=== PATIENT | female | born 1980 | race American Indian/Alaskan Native ===

== ENCOUNTER 2016-04-12 19:44 | Emergency (ER) | payer MEDICARE | END 2016-04-12 21:43 | disposition left against medical advice (07) | LOC: ED 19:44 | DX: R45.851 Suicidal ideations (principal); Z91.012 Allergy to eggs; Z88.1 Allergy status to other antibiotic agents; Z88.8 Allergy status to other drugs, medicaments and biological substances; Z53.21 Procedure and treatment not carried out due to patient leaving prior to being seen by health care provider ==

== ENCOUNTER 2016-04-22 09:51 | Emergency (ER) | payer MEDICARE ==
--- NOTE | 2016-04-22 10:15 | Emergency Department Report ---
Chief Complaint: Psych Stated Complaint: SUICIDAL IDEAS/DUE TO OPIATE WITHDRAWALS Time Seen by Provider: 04/22/16 10:10 - HPI History of Present Illness: Patient here reports suicide ideation without a plan . She reports having lupus and hydradenitis and have been oplace on oxycontin and percocet-10 twice daily. She reports that she ran out of meds and she is having withdrawal symptoms. Patient said she needs help. Denies homicidal ideation. complaing of hallucination and nightmares. generalized achy pain 10 - ROS Review of Systems: all systems are negative unless stated in HPI above - Exam Vital Signs: Vital Signs 04/22/16 09:55 Temperature 98.1 F Pulse Rate 49 L Respiratory 16 Rate Blood Pressure 134/55 O2 Sat by Pulse 100 Oximetry Physical Exam: General: This is a 61 yo female well nourished well developed and non toxic in appearance CV: S1S2. Bradycardia at 49. asymptomatib Lungs: CTAB. NL work of breathing Psych: positive suicide ideation. Positive hallucination. Calm MSE screening note: Focused history and physical exam performed. Due to findings the following was ordered:I spoke with Jose E Charge nurse and he said he is trying to secure a place for he. He was infromrd that patient having Suicidal thought and need to be placed under suicide watch immediately. ED Medical Decision Making - Medical Decision Making MDM:1: seen by provider in triage 2: Protocol implemented for labs and/or Diagnostics Patient to be seen by provider in main ED ED Disposition for MSE Condition: Stable
[2016-04-22 10:33] LABS: Urine Drugs of Abuse Note Disclamer
[2016-04-22 10:44] LABS: Bilirubin,Urine NEG (Negative); Blood,Urine NEG (Negative); Ketones,Urine NEG (Negative); Leukocyte Esterase,Urine TR (Negative); Mucus,Urine FEW /HPF; Nitrite,Urine NEG (Negative); Protein,Urine <15 mg/dL mg/dL (Negative); RBC,Urine < 1.0 /HPF (0.0-6.0); Urobilinogen,Urine < 2.0 mg/dL (<2.0)
[2016-04-22 11:48] LABS: Basophils % (Auto) 0.4 % (0.0-1.8); Eosinophils % (Auto) 0.5 % (0.0-4.3); Hemoglobin 12.4 gm/dl (10.1-14.3); Mean Corpuscular HGB Conc 32 % (30-34); Mean Corpuscular Volume 76 fl (79-97); Platelet Count 248 K/mm3 (140-440); Red Blood Count 5.11 M/mm3 (3.65-5.03); Red Cell Distribution Width 17.8 % (13.2-15.2); White Blood Count 14.2 K/mm3 (4.5-11.0)
[2016-04-22] MEDS ORDERED: ATIVAN IM ONE (11:53)
[2016-04-22] MEDS ORDERED: REGLAN IM ONE (11:53)
[2016-04-22 11:55] LABS: Mean Corpuscular Hemoglobin 24 pg (28-32)
--- NOTE | 2016-04-22 12:07 | Emergency Department Report ---
HPI - General Chief Complaint: Psych Time Seen by Provider: 04/22/16 10:22 - HPI HPI: Wallace [id number] The patient is a 28-year-old female presenting with a chief complaint suicidal ideation. The patient states she has a history of chronic opioid use. The patient states she normally takes 3 Percocets daily but ran out of them 2 days ago. The patient states this morning she began having suicidal ideation. Patient denies doing anything to try to harm herself states her plan was to cut her wrists. Patient admits to previous episode of suicidal ideation where she attempted to harm herself by taking pills (2013). Patient states she feels as though she is withdrawing from opiates as she is having abdominal cramping and nausea vomiting and "aching all over." Location: Mental state, see above Duration: see above Quality: Suicidal, aching Severity: Moderate Modifying factors: see above Context: see above Mode of transportation: not driving ED Past Medical Hx - Past Medical History Hx Diabetes: Yes Hx Psychiatric Treatment: Yes (BIPOLAR Boderline personality) Additional medical history: LUPUS, hidradenitis - Surgical History Additional Surgical History: Breast reduction bilateral,excisional surg. for abscess - Family History Family history: no significant - Social History Smoking Status: Current Every Day Smoker (1/2 pack per day) Substance Use Type: Marijuana, Prescribed - Medications Home Medications: Home Medications Medication Instructions Recorded Confirmed Last Taken Type ALBUTEROL Inhaler [ProAir HFA 2 puff IH QID PRN #1 inhalation 12/09/15 12/25/15 2 Days Ago Rx Inhaler] Insulin Aspart [NovoLOG Flexpen] 5 units SQ AC #1 pen 12/09/15 12/25/15 2 Days Ago Rx Cephalexin [Keflex] 500 mg PO TID #10 capsule 12/25/15 Unknown Rx Duloxetine HCl [Cymbalta] 90 mg PO QAM 12/25/15 12/25/15 12/23/15 History traZODone [Desyrel] 100 mg PO QHS 12/25/15 12/25/15 12/23/15 History ED Review of Systems ROS: Stated complaint: SUICIDAL IDEAS/DUE TO OPIATE WITHDRAWALS Other details as noted in HPI Comment: All other systems reviewed and negative Constitutional: denies: chills, fever Eyes: denies: eye pain, eye discharge, vision change ENT: denies: ear pain, throat pain Respiratory: denies: cough, shortness of breath, wheezing Cardiovascular: denies: chest pain, palpitations Endocrine: no symptoms reported Gastrointestinal: nausea, vomiting, other (abdominal cramping) Genitourinary: denies: urgency, dysuria, discharge Musculoskeletal: myalgia Skin: denies: rash, lesions Neurological: denies: headache, weakness, paresthesias Psychiatric: suicidal thoughts Hematological/Lymphatic: denies: easy bleeding, easy bruising Physical Exam - Physical Exam Vital Signs: Vital Signs 04/22/16 09:55 Temperature 98.1 F Pulse Rate 49 L Respiratory 16 Rate Blood Pressure 134/55 O2 Sat by Pulse 100 Oximetry Physical Exam: GENERAL: The patient is well-developed well-nourished female lying on stretcher playing with cell phone not appearing to be in acute distress. [] HEENT: Normocephalic. Atraumatic. Extraocular motions are intact. Patient has moist mucous membranes. NECK: Supple. Trachea midline CHEST/LUNGS: Clear to auscultation. There is no respiratory distress noted. HEART/CARDIOVASCULAR: Regular. There is no tachycardia. There is no gallop rub or murmur. ABDOMEN: Abdomen is soft, nontender. Patient has normal bowel sounds (not hyperactive). There is no abdominal distention. SKIN: There is no rash. There is no edema. There is no diaphoresis. NEURO: The patient is awake, alert, and oriented. The patient is cooperative. The patient has normal speech MUSCULOSKELETAL: There is no evidence of acute injury. ED Course Vital Signs 04/22/16 09:55 Temperature 98.1 F Pulse Rate 49 L Respiratory 16 Rate Blood Pressure 134/55 O2 Sat by Pulse 100 Oximetry ED Medical Decision Making - Lab Data Result diagrams: 04/22/16 11:27 04/22/16 11:27 Laboratory Tests 04/22/16 04/22/16 04/22/16 11:27 11:27 11:27 WBC RBC Hgb Hct MCV MCH MCHC RDW Plt Count Lymph % (Auto) [place] % (Auto) Eos % (Auto) Baso % (Auto) Lymph # [place] # Eos # Baso # Seg Neutrophils % Seg Neutrophils # Sodium 138 Potassium 4.6 Chloride 99.5 Carbon Dioxide 24 Anion Gap 19 BUN 10 Creatinine 0.7 Estimated GFR > 60 BUN/Creatinine Ratio 14.28 Glucose 219 H Calcium 9.1 HCG, Qual Negative Urine Color Urine Turbidity Urine pH Ur Specific [place] Urine Protein Urine Glucose (UA) Urine Ketones Urine Blood Urine Nitrite Urine Bilirubin Urine Urobilinogen Ur Leukocyte Esterase Urine WBC (Auto) Urine RBC (Auto) U Epithel Cells (Auto) Urine Mucus Salicylates Urine Opiates Screen Urine Methadone Screen Acetaminophen Ur Barbiturates Screen Ur Phencyclidine Scrn Ur Amphetamines Screen U Benzodiazepines Scrn Urine Cocaine Screen U Marijuana (THC) Screen Drugs of Abuse Note Plasma/Serum Alcohol < 0.01 04/22/16 04/22/16 04/22/16 11:27 11:27 11:27 WBC 14.2 H RBC 5.11 H Hgb 12.4 Hct 39.0 MCV 76 L MCH 24 L MCHC 32 RDW 17.8 H Plt Count 248 Lymph % (Auto) 19.5 [place] % (Auto) 4.1 Eos % (Auto) 0.5 Baso % (Auto) 0.4 Lymph # 2.8 [place] # 0.6 Eos # 0.1 Baso # 0.1 Seg Neutrophils % 75.5 H Seg Neutrophils # 10.7 H Sodium Potassium Chloride Carbon Dioxide Anion Gap BUN Creatinine Estimated GFR BUN/Creatinine Ratio Glucose Calcium HCG, Qual Urine Color Urine Turbidity Urine pH Ur Specific [place] Urine Protein Urine Glucose (UA) Urine Ketones Urine Blood Urine Nitrite Urine Bilirubin Urine Urobilinogen Ur Leukocyte Esterase Urine WBC (Auto) Urine RBC (Auto) U Epithel Cells (Auto) Urine Mucus Salicylates < 0.3 L Urine Opiates Screen Urine Methadone Screen Acetaminophen < 15.0 Ur Barbiturates Screen Ur Phencyclidine Scrn Ur Amphetamines Screen U Benzodiazepines Scrn Urine Cocaine Screen U Marijuana (THC) Screen Drugs of Abuse Note Plasma/Serum Alcohol 04/22/16 04/22/16 Unknown Unknown WBC RBC Hgb Hct MCV MCH MCHC RDW Plt Count Lymph % (Auto) [place] % (Auto) Eos % (Auto) Baso % (Auto) Lymph # [place] # Eos # Baso # Seg Neutrophils % Seg Neutrophils # Sodium Potassium Chloride Carbon Dioxide Anion Gap BUN Creatinine Estimated GFR BUN/Creatinine Ratio Glucose Calcium HCG, Qual Urine Color Yellow Urine Turbidity Clear Urine pH 6.0 Ur Specific [place] 1.016 Urine Protein <15 mg/dl Urine Glucose (UA) 150 Urine Ketones Neg Urine Blood Neg Urine Nitrite Neg Urine Bilirubin Neg Urine Urobilinogen < 2.0 Ur Leukocyte Esterase Tr Urine WBC (Auto) 1.0 Urine RBC (Auto) < 1.0 U Epithel Cells (Auto) 1.0 Urine Mucus Few Salicylates Urine Opiates Screen Presumptive negative Urine Methadone Screen Presumptive negative Acetaminophen Ur Barbiturates Screen Presumptive negative Ur Phencyclidine Scrn Presumptive negative Ur Amphetamines Screen Presumptive negative U Benzodiazepines Scrn Presumptive negative Urine Cocaine Screen Presumptive negative U Marijuana (THC) Screen Presumptive positive Drugs of Abuse Note Disclamer Plasma/Serum Alcohol - Differential Diagnosis opiate withdrawal, suicidal ideation Critical care attestation.: If time is entered above; I have spent that time in minutes in the direct care of this critically ill patient, excluding procedure time. ED Disposition Clinical Impression: Opiate dependence, Suicidal ideation Disposition: DC/TX PSY HOSP/PSY UNIT Is pt being admited?: No Does the pt Need Aspirin: No Condition: Serious Referrals: PRIMARY CARE, [Primary Care Provider] - 3-5 Days Time of Disposition: 12:08 (awaiting acceptance)
[2016-04-22 12:13] LABS: BUN/Creatinine Ratio 14.28; Blood Urea Nitrogen 10 mg/dL (7-17); Calcium 9.1 mg/dL (8.4-10.2); Carbon Dioxide 24 mmol/L (22-30); Chloride 99.5 mmol/L (98-107); Glucose 219 mg/dL (65-100); Potassium 4.6 mmol/L (3.6-5.0); Sodium 138 mmol/L (137-145)
[2016-04-22 12:29] LABS: Anion Gap 19 mmol/L
[2016-04-22] MEDS ORDERED: ATIVAN PO PRN (15:52)
[2016-04-22] MEDS ORDERED: REGLAN IM PRN (15:52)
[2016-04-22 18:34] VITALS: BP 132/82
== END 2016-04-22 18:36 ==
LOC: ED 09:51 → EEVIPCON 09:51 → ED 18:36
DX: F11.20 Opioid dependence, uncomplicated (principal); R45.851 Suicidal ideations; R11.2 Nausea with vomiting, unspecified; M79.1 Myalgia; E11.9 Type 2 diabetes mellitus without complications; F31.9 Bipolar disorder, unspecified; L73.2 Hidradenitis suppurativa; F12.10 Cannabis abuse, uncomplicated; F17.200 Nicotine dependence, unspecified, uncomplicated; Z79.4 Long term (current) use of insulin
CPT/HCPCS: 36415; 80048; 80307; 81001; 82962; 84703; 85025; 96372; 99285; G0480; J2060; J2765; 80320; J1815

== ENCOUNTER 2016-05-31 00:22 | Emergency (ER) | payer MEDICARE ==
[2016-05-31 05:01] LABS: Urine Drugs of Abuse Note Disclamer
[2016-05-31 05:21] LABS: Basophils % (Auto) 0.4 % (0.0-1.8); Eosinophils % (Auto) 1.7 % (0.0-4.3); Hematocrit 39.2 % (30.3-42.9); Hemoglobin 12.3 gm/dl (10.1-14.3); Mean Corpuscular HGB Conc 31 % (30-34); Mean Corpuscular Volume 77 fl (79-97); Platelet Count 278 K/mm3 (140-440); Red Blood Count 5.09 M/mm3 (3.65-5.03); Red Cell Distribution Width 17.9 % (13.2-15.2); White Blood Count 12.2 K/mm3 (4.5-11.0)
[2016-05-31 05:21] LABS: Bilirubin,Urine NEG (Negative); Blood,Urine MOD (Negative); Ketones,Urine NEG (Negative); Leukocyte Esterase,Urine NEG (Negative); Mucus,Urine 1+ /HPF; Nitrite,Urine NEG (Negative); Protein,Urine <15 mg/dL mg/dL (Negative); Urobilinogen,Urine < 2.0 mg/dL (<2.0)
[2016-05-31 05:24] LABS: Mean Corpuscular Hemoglobin 24 pg (28-32)
[2016-05-31 05:38] LABS: Anion Gap 20 mmol/L; BUN/Creatinine Ratio 11.25; Blood Urea Nitrogen 9 mg/dL (7-17); Calcium 8.4 mg/dL (8.4-10.2); Carbon Dioxide 26 mmol/L (22-30); Chloride 99.7 mmol/L (98-107); Glucose 97 mg/dL (65-100); Potassium 4.2 mmol/L (3.6-5.0); Sodium 141 mmol/L (137-145)
[2016-05-31] MEDS ORDERED: ATIVAN IM PRN (07:29)
[2016-05-31] MEDS ORDERED: HALDOL IM PRN (07:29)
--- NOTE | 2016-05-31 07:30 | Emergency Department Report ---
ED Psych HPI - General Chief Complaint: Psych Stated Complaint: MH EVAL/SUICIDAL THOUGHTS Time Seen by Provider: 05/31/16 07:18 Source: patient, EMS (ems notes not available at time of chart dictation), RN notes reviewed Mode of arrival: Ambulatory - History of Present Illness Initial Comments: Past medical history: Diabetes, lupus, bipolar, chronic hidradenitis This is a 36-year-old female. She presents to the ER with suicidal ideation and auditory hallucinations. Symptoms are constant for the past few days. They have no exacerbating or relieving factors. Patient reports compliance with her outpatient medications, which include lithium, Cymbalta, Geodon, and trazodone. The patient denies headache, neck pain, chest pain, abdominal pain or shortness of breath. She denies nausea vomiting diarrhea. She denies irritative and obstructive urinary symptoms. She does not have access to guns or firearms. She denies overdose intentions. She admits to chronic labial discomfort, consistent with prior episodes of her known chronic hidradenitis. MD Complaint: suicidal ideation, feels depressed -: Gradual Associated Psychiatric Symptoms: auditory hallucinations History of same: Yes Quality: constant Improves With: none Worsens With: none If Self Harm: admits thoughts of - Related Data Home Medications Medication Instructions Recorded Confirmed Last Taken Duloxetine HCl [Cymbalta] 90 mg PO QDAY 05/31/16 05/31/16 Unknown [place] Carbonate ER [Lithobid ER] 300 mg PO QDAY 05/31/16 05/31/16 Unknown Ziprasidone HCl [Geodon] 80 mg PO BID 05/31/16 05/31/16 Unknown traZODone [Desyrel] 100 mg PO QHS 05/31/16 05/31/16 Unknown Allergies Allergy/AdvReac Type Severity Reaction Status Date / Time egg Allergy Hives Verified 04/22/16 09:55 tramadol HCl [From Ultram] Allergy Hives Verified 04/22/16 09:55 vancomycin Allergy Hives Verified 04/22/16 09:55 ED Review of Systems ROS: Stated complaint: MH EVAL/SUICIDAL THOUGHTS Other details as noted in HPI Constitutional: denies: fever Eyes: denies: vision change ENT: denies: epistaxis Respiratory: denies: cough Cardiovascular: denies: chest pain Gastrointestinal: denies: abdominal pain Genitourinary: as per HPI Musculoskeletal: myalgia Skin: lesions Psychiatric: anxiety, suicidal thoughts ED Past Medical Hx - Past Medical History Previous Medical History?: Yes Hx Diabetes: Yes Hx Psychiatric Treatment: Yes (BIPOLAR Boderline personality) Additional medical history: LUPUS, hidradenitis - Surgical History Past Surgical History?: Yes Additional Surgical History: Breast reduction bilateral,excisional surg. for abscess - Social History Smoking Status: Current Every Day Smoker Substance Use Type: Marijuana - Medications Home Medications: Home Medications Medication Instructions Recorded Confirmed Last Taken Type Duloxetine HCl [Cymbalta] 90 mg PO QDAY 05/31/16 05/31/16 Unknown History [place] Carbonate ER [Lithobid ER] 300 mg PO QDAY 05/31/16 05/31/16 Unknown History Ziprasidone HCl [Geodon] 80 mg PO BID 05/31/16 05/31/16 Unknown History traZODone [Desyrel] 100 mg PO QHS 05/31/16 05/31/16 Unknown History ED Physical Exam - General Limitations: No Limitations General appearance: alert, in no apparent distress - Head Head exam: Present: atraumatic, normocephalic - Eye Eye exam: Present: normal appearance, PERRL, EOMI. Absent: nystagmus - ENT ENT exam: Present: normal exam, normal orophraynx, mucous membranes moist, normal external ear exam - Neck Neck exam: Present: normal inspection, full ROM. Absent: tenderness, meningismus - Respiratory Respiratory exam: Present: normal lung sounds bilaterally. Absent: respiratory distress, wheezes, rales, rhonchi, stridor, decreased breath sounds - Cardiovascular Cardiovascular Exam: Present: regular rate, normal rhythm, normal heart sounds. Absent: bradycardia, tachycardia, irregular rhythm, systolic murmur, diastolic murmur, rubs, gallop - GI/Abdominal GI/Abdominal exam: Present: soft, normal bowel sounds. Absent: distended, tenderness, guarding, rebound, rigid - External exam: Present: lesions, other (chronic lesions externally noted, consistent with known history of hidradenitis. Minimal left superior labial induration, however no erythema, pus or streaking. There is no fluctuance.) Bi-manual exam: Present: other (external gynecologic examination, I am escorted by nurse EVELYN ALBERTS) - Extremities Exam Extremities exam: Present: normal inspection, full ROM, normal capillary refill. Absent: tenderness, pedal edema, joint swelling, calf tenderness - Back Exam Back exam: Present: normal inspection, full ROM. Absent: tenderness, CVA tenderness (R), CVA tenderness (L), muscle spasm, paraspinal tenderness, vertebral tenderness - Neurological Exam Neurological exam: Present: alert, oriented X3, normal gait, other (Extraocular movements intact. Tongue midline. No facial droop. Facial sensation intact to light touch in the V1, V2, V3 distribution bilaterally. 5 and 5 strength in 4 extremities.. Sensation is intact to light touch in 4 extremities.). Absent : motor sensory deficit - Psychiatric Psychiatric exam: Present: anxious, suicidal ideation. Absent: homicidal ideation - Skin Skin exam: Present: warm ED Course Vital Signs 05/31/16 05/31/16 05/31/16 02:41 08:47 08:48 Temperature 98.3 F 98.0 F Pulse Rate 82 80 Respiratory 18 16 16 Rate Blood Pressure 116/80 118/63 [Left] O2 Sat by Pulse 97 97 97 Oximetry - Reevaluation(s) Reevaluation #1: 05/31/16 08:49 Differential diagnosis: Suicidality, mood disorder, chronic hidradenitis, medical clearance for psychiatric placement Assessment and plan: 36-year-old female with suicidality, very anxious, depressed, tearful. Has a GCS of 15, with an NIH score of 0. Laboratory studies were reviewed and are unremarkable. The patient required 1013 in initiation. Laboratory studies are reviewed, they are within normal limits. Her external physical exam is consistent with chronic hidradenitis. Does not require antibiotic therapy at this time. Warm compresses are appropriate on an as-needed basis. We will continue the current outpatient medications as listed. At this point in time, I see no immediate medical contraindication to psychiatric admission/evaluation/placement. The crisis team is informed. ED Medical Decision Making - Lab Data Result diagrams: 05/31/16 04:40 05/31/16 04:40 Vital Signs 05/31/16 05/31/16 05/31/16 02:41 08:47 08:48 Temperature 98.3 F 98.0 F Pulse Rate 82 80 Respiratory 18 16 16 Rate Blood Pressure 116/80 118/63 [Left] O2 Sat by Pulse 97 97 97 Oximetry Lab Results 05/31/16 05/31/16 05/31/16 Range/Units 04:40 04:40 04:40 WBC 12.2 H (4.5-11.0) K/mm3 RBC 5.09 H (3.65-5.03) M/mm3 Hgb 12.3 (10.1-14.3) gm/dl Hct 39.2 (30.3-42.9) % MCV 77 L (79-97) fl MCH 24 L (28-32) pg MCHC 31 (30-34) % RDW 17.9 H (13.2-15.2) % Plt Count 278 (140-440) K/mm3 Lymph % (Auto) 26.3 (13.4-35.0) % Elk % (Auto) 6.1 (0.0-7.3) % Eos % (Auto) 1.7 (0.0-4.3) % Baso % (Auto) 0.4 (0.0-1.8) % Lymph # 3.2 (1.2-5.4) K/mm3 Elk # 0.7 (0.0-0.8) K/mm3 Eos # 0.2 (0.0-0.4) K/mm3 Baso # 0.0 (0.0-0.1) K/mm3 Seg Neutrophils % 65.5 (40.0-70.0) % Seg Neutrophils # 8.0 H (1.8-7.7) K/mm3 Sodium 141 (137-145) mmol/L Potassium 4.2 (3.6-5.0) mmol/L Chloride 99.7 (98-107) mmol/L Carbon Dioxide 26 (22-30) mmol/L Anion Gap 20 mmol/L BUN 9 (7-17) mg/dL Creatinine 0.8 (0.7-1.2) mg/dL Estimated GFR > 60 ml/min BUN/Creatinine Ratio 11.25 % Glucose 97 (65-100) mg/dL Calcium 8.4 (8.4-10.2) mg/dL Total Creatine Kinase (30-135) units/L Urine Color (Yellow) Urine Turbidity (Clear) Urine pH (5.0-7.0) Ur Specific [place] (1.003-1.030) Urine Protein (Negative) mg/dL Urine Glucose (UA) (Negative) mg/dL Urine Ketones (Negative) mg/dL Urine Blood (Negative) Urine Nitrite (Negative) Urine Bilirubin (Negative) Urine Urobilinogen (<2.0) mg/dL Ur Leukocyte Esterase (Negative) Urine WBC (Auto) (0.0-6.0) /HPF Urine RBC (Auto) (0.0-6.0) /HPF U Epithel Cells (Auto) (0-13.0) /HPF Urine Mucus /HPF Urine HCG, Qual (Negative) Salicylates (2.8-20.0) mg/dL Urine Opiates Screen Urine Methadone Screen Acetaminophen (10.0-30.0) ug/mL Ur Barbiturates Screen Ur Phencyclidine Scrn Ur Amphetamines Screen U Benzodiazepines Scrn [place] (0.0-1.2) mmol/L Urine Cocaine Screen U Marijuana (THC) Screen Drugs of Abuse Note Plasma/Serum Alcohol < 0.01 (0-0.07) gm% 05/31/16 05/31/16 05/31/16 Range/Units 04:46 04:46 04:46 WBC (4.5-11.0) K/mm3 RBC (3.65-5.03) M/mm3 Hgb (10.1-14.3) gm/dl Hct (30.3-42.9) % MCV (79-97) fl MCH (28-32) pg MCHC (30-34) % RDW (13.2-15.2) % Plt Count (140-440) K/mm3 Lymph % (Auto) (13.4-35.0) % Elk % (Auto) (0.0-7.3) % Eos % (Auto) (0.0-4.3) % Baso % (Auto) (0.0-1.8) % Lymph # (1.2-5.4) K/mm3 Elk # (0.0-0.8) K/mm3 Eos # (0.0-0.4) K/mm3 Baso # (0.0-0.1) K/mm3 Seg Neutrophils % (40.0-70.0) % Seg Neutrophils # (1.8-7.7) K/mm3 Sodium (137-145) mmol/L Potassium (3.6-5.0) mmol/L Chloride (98-107) mmol/L Carbon Dioxide (22-30) mmol/L Anion Gap mmol/L BUN (7-17) mg/dL Creatinine (0.7-1.2) mg/dL Estimated GFR ml/min BUN/Creatinine Ratio % Glucose (65-100) mg/dL Calcium (8.4-10.2) mg/dL Total Creatine Kinase (30-135) units/L Urine Color Yellow (Yellow) Urine Turbidity Clear (Clear) Urine pH 5.0 (5.0-7.0) Ur Specific [place] 1.021 (1.003-1.030) Urine Protein <15 mg/dl (Negative) mg/dL Urine Glucose (UA) Neg (Negative) mg/dL Urine Ketones Neg (Negative) mg/dL Urine Blood Mod (Negative) Urine Nitrite Neg (Negative) Urine Bilirubin Neg (Negative) Urine Urobilinogen < 2.0 (<2.0) mg/dL Ur Leukocyte Esterase Neg (Negative) Urine WBC (Auto) 1.0 (0.0-6.0) /HPF Urine RBC (Auto) 2.0 (0.0-6.0) /HPF U Epithel Cells (Auto) 2.0 (0-13.0) /HPF Urine Mucus 1+ /HPF Urine HCG, Qual Negative (Negative) Salicylates (2.8-20.0) mg/dL Urine Opiates Screen Presumptive negative Urine Methadone Screen Presumptive negative Acetaminophen (10.0-30.0) ug/mL Ur Barbiturates Screen Presumptive negative Ur Phencyclidine Scrn Presumptive negative Ur Amphetamines Screen Presumptive positive U Benzodiazepines Scrn Presumptive negative [place] (0.0-1.2) mmol/L Urine Cocaine Screen Presumptive negative U Marijuana (THC) Screen Presumptive positive Drugs of Abuse Note Disclamer Plasma/Serum Alcohol (0-0.07) gm% 05/31/16 05/31/16 05/31/16 Range/Units 07:15 07:15 07:15 WBC (4.5-11.0) K/mm3 RBC (3.65-5.03) M/mm3 Hgb (10.1-14.3) gm/dl Hct (30.3-42.9) % MCV (79-97) fl MCH (28-32) pg MCHC (30-34) % RDW (13.2-15.2) % Plt Count (140-440) K/mm3 Lymph % (Auto) (13.4-35.0) % Elk % (Auto) (0.0-7.3) % Eos % (Auto) (0.0-4.3) % Baso % (Auto) (0.0-1.8) % Lymph # (1.2-5.4) K/mm3 [place] # (0.0-0.8) K/mm3 Eos # (0.0-0.4) K/mm3 Baso # (0.0-0.1) K/mm3 Seg Neutrophils % (40.0-70.0) % Seg Neutrophils # (1.8-7.7) K/mm3 Sodium (137-145) mmol/L Potassium (3.6-5.0) mmol/L Chloride (98-107) mmol/L Carbon Dioxide (22-30) mmol/L Anion Gap mmol/L BUN (7-17) mg/dL Creatinine (0.7-1.2) mg/dL Estimated GFR ml/min BUN/Creatinine Ratio % Glucose (65-100) mg/dL Calcium (8.4-10.2) mg/dL Total Creatine Kinase 92 (30-135) units/L Urine Color (Yellow) Urine Turbidity (Clear) Urine pH (5.0-7.0) Ur Specific [place] (1.003-1.030) Urine Protein (Negative) mg/dL Urine Glucose (UA) (Negative) mg/dL Urine Ketones (Negative) mg/dL Urine Blood (Negative) Urine Nitrite (Negative) Urine Bilirubin (Negative) Urine Urobilinogen (<2.0) mg/dL Ur Leukocyte Esterase (Negative) Urine WBC (Auto) (0.0-6.0) /HPF Urine RBC (Auto) (0.0-6.0) /HPF U Epithel Cells (Auto) (0-13.0) /HPF Urine Mucus /HPF Urine HCG, Qual (Negative) Salicylates < 0.3 L (2.8-20.0) mg/dL Urine Opiates Screen Urine Methadone Screen Acetaminophen < 15.0 (10.0-30.0) ug/mL Ur Barbiturates Screen Ur Phencyclidine Scrn Ur Amphetamines Screen U Benzodiazepines Scrn [place] 0.3 (0.0-1.2) mmol/L Urine Cocaine Screen U Marijuana (THC) Screen Drugs of Abuse Note Plasma/Serum Alcohol (0-0.07) gm% Critical care attestation.: If time is entered above; I have spent that time in minutes in the direct care of this critically ill patient, excluding procedure time. ED Disposition Clinical Impression: Suicidal ideation Disposition: DC/TX PSY HOSP/PSY UNIT Is pt being admited?: No Does the pt Need Aspirin: No Condition: Good Referrals: PRIMARY CARE, [Primary Care Provider] - 3-5 Days
[2016-05-31 07:59] LABS: Lithium 0.3 mmol/L (0.0-1.2)
[2016-05-31 08:00] LABS: Salicylate < 0.3 mg/dL (2.8-20.0)
[2016-05-31 08:48] VITALS: BP 118/63
[2016-05-31] MEDS ORDERED: CYMBALTA PO SCH (10:00)
[2016-05-31] MEDS ORDERED: LITHOBID ER PO SCH (10:00)
[2016-05-31] MEDS: GEODON PO SCH ×2 (11:57→11:58)
[2016-05-31] MEDS ORDERED: HABITROL TD ONE (15:44)
[2016-05-31] MEDS ORDERED: DESYREL PO SCH (22:00)
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
== END 2016-05-31 16:24 ==
LOC: ED 00:22 → EEVIPCON 00:22 → ED 16:24
DX: F31.9 Bipolar disorder, unspecified (principal); E11.9 Type 2 diabetes mellitus without complications; M32.9 Systemic lupus erythematosus, unspecified; F17.200 Nicotine dependence, unspecified, uncomplicated; F12.10 Cannabis abuse, uncomplicated; F41.9 Anxiety disorder, unspecified; Z98.890 Other specified postprocedural states; Z91.012 Allergy to eggs; Z88.6 Allergy status to analgesic agent; Z88.1 Allergy status to other antibiotic agents; Z79.899 Other long term (current) drug therapy
CPT/HCPCS: 36415; 80048; 80178; 80307; 81001; 81025; 82550; 85025; 99285; G0480; 80320

== ENCOUNTER 2016-07-01 23:18 | Emergency (ER) | payer MEDICARE ==
[2016-07-02 00:36] LABS: Basophils % (Auto) 1.2 % (0.0-1.8); Eosinophils % (Auto) 0.9 % (0.0-4.3); Hematocrit 37.3 % (30.3-42.9); Hemoglobin 12.2 gm/dl (10.1-14.3); Mean Corpuscular HGB Conc 33 % (30-34); Mean Corpuscular Volume 76 fl (79-97); Platelet Count 267 K/mm3 (140-440); Red Blood Count 4.91 M/mm3 (3.65-5.03); Red Cell Distribution Width 17.3 % (13.2-15.2); White Blood Count 12.8 K/mm3 (4.5-11.0)
[2016-07-02 00:47] LABS: Urine Drugs of Abuse Note Disclamer
[2016-07-02 00:56] LABS: Anion Gap 20 mmol/L; Blood Urea Nitrogen 9 mg/dL (7-17); Calcium 8.9 mg/dL (8.4-10.2); Carbon Dioxide 20 mmol/L (22-30); Chloride 102.3 mmol/L (98-107); Glucose 128 mg/dL (65-100); Sodium 138 mmol/L (137-145)
[2016-07-02 01:08] LABS: Bilirubin,Urine NEG (Negative); Blood,Urine NEG (Negative); Ketones,Urine NEG (Negative); Leukocyte Esterase,Urine NEG (Negative); Mucus,Urine FEW /HPF; Nitrite,Urine NEG (Negative); Protein,Urine <15 mg/dL mg/dL (Negative); Urobilinogen,Urine < 2.0 mg/dL (<2.0)
[2016-07-02 01:18] LABS: Mean Corpuscular Hemoglobin 25 pg (28-32)
--- NOTE | 2016-07-02 05:49 | Emergency Department Report ---
ED Psych HPI - General Chief Complaint: Psych Stated Complaint: SUICIDAL Time Seen by Provider: 07/02/16 03:32 Source: patient Mode of arrival: Ambulatory Limitations: No Limitations - History of Present Illness Initial Comments: 36-year-old female the past medical history diabetes, bipolar, lupus, and hydradenitis presents to Hospital complaints of suicidal ideation 2 days. No plan. Patient states she has been suicidal since her godmother . Patient complains of auditory hallucinations. She has been compliant with her Cymbalta , Geodon, and trazodone. She no longer takes lithium. No physical complaints reported. No history of previous suicide attempts in the past. - Related Data Home Medications Medication Instructions Recorded Confirmed Last Taken Duloxetine HCl [Cymbalta] 90 mg PO QDAY 05/31/16 07/02/16 Unknown Ziprasidone HCl [Geodon] 80 mg PO BID 05/31/16 07/02/16 Unknown traZODone [Desyrel] 100 mg PO QHS 05/31/16 07/02/16 Unknown Allergies Allergy/AdvReac Type Severity Reaction Status Date / Time egg Allergy Hives Verified 07/02/16 02:56 tramadol HCl [From Ultram] Allergy Hives Verified 07/02/16 02:56 vancomycin Allergy Hives Verified 07/02/16 02:56 ED Review of Systems ROS: Stated complaint: SUICIDAL Other details as noted in HPI Comment: All other systems reviewed and negative Other: Constitutional: No fevers chills Eyes: No eye pain visual changes ENT: No ear pain or throat pain Neck: Denies pain Respiratory: Denies cough wheezing shortness of breath Cardiovascular: Denies chest pain, palpitations, syncope GI: Denies abdominal pain, nausea, vomiting, diarrhea : Denies dysuria Musculoskeletal: Denies back pain Skin: Denies rash, lesions, erythema Neurologic: Denies headache, numbness, weakness Psychiatric: As per HPI ED Past Medical Hx - Past Medical History Previous Medical History?: Yes Hx Diabetes: Yes Hx Psychiatric Treatment: Yes (BIPOLAR Boderline personality) Additional medical history: LUPUS, hidradenitis - Surgical History Past Surgical History?: Yes Additional Surgical History: Breast reduction bilateral,excisional surg. for abscess - Social History Smoking Status: Current Every Day Smoker Substance Use Type: None - Medications Home Medications: Home Medications Medication Instructions Recorded Confirmed Last Taken Type Duloxetine HCl [Cymbalta] 90 mg PO QDAY 05/31/16 07/02/16 Unknown History Ziprasidone HCl [Geodon] 80 mg PO BID 05/31/16 07/02/16 Unknown History traZODone [Desyrel] 100 mg PO QHS 05/31/16 07/02/16 Unknown History ED Physical Exam - General Limitations: No Limitations - Other Other exam information: General: No limitations, patient is alert in no acute distress Head exam: Atraumatic, normocephalic Eyes exam: Normal appearance ENT: Moist mucous membrane, normal oropharynx Neck exam: Normal inspection, full range of motion Respiratory exam: Clear to auscultation bilateral, no wheezes, rales, crackles Cardiovascular: Normal rate and rhythm, normal heart sounds Abdomen: Soft, nondistended, and nontender, with normal bowel sounds, no rebound, or guarding Extremity: Full range of motion normal inspection no deformity Back: Normal Inspection, full range of motion, no tenderness Neurologic: Alert, oriented x3, cranial nerves intact, no motor or sensory deficit Psychiatric: normal affect, normal mood Skin: Warm, dry, intact ED Course Vital Signs 07/01/16 07/02/16 23:52 01:51 Temperature 98.8 F 99.1 F Pulse Rate 70 81 Respiratory 18 16 Rate Blood Pressure 156/82 146/91 [Right] O2 Sat by Pulse 100 100 Oximetry - Reevaluation(s) Reevaluation #1: 07/02/16 05:46 PT remained stable and cooperative in the ED - Consultations Consultation #1: 07/02/16 05:50 mental health evaluation ED Medical Decision Making - Lab Data Result diagrams: 07/02/16 00:15 07/02/16 00:14 Lab Results 07/02/16 07/02/16 07/02/16 Range/Units 00:14 00:14 00:15 WBC (4.5-11.0) K/mm3 RBC (3.65-5.03) M/mm3 Hgb (10.1-14.3) gm/dl Hct (30.3-42.9) % MCV (79-97) fl MCH (28-32) pg MCHC (30-34) % RDW (13.2-15.2) % Plt Count (140-440) K/mm3 Lymph % (Auto) (13.4-35.0) % [place] % (Auto) (0.0-7.3) % Eos % (Auto) (0.0-4.3) % Baso % (Auto) (0.0-1.8) % Lymph # (1.2-5.4) K/mm3 [place] # (0.0-0.8) K/mm3 Eos # (0.0-0.4) K/mm3 Baso # (0.0-0.1) K/mm3 Seg Neutrophils % (40.0-70.0) % Seg Neutrophils # (1.8-7.7) K/mm3 Sodium 138 (137-145) mmol/L Potassium 4.0 (3.6-5.0) mmol/L Chloride 102.3 (98-107) mmol/L Carbon Dioxide 20 L (22-30) mmol/L Anion Gap 20 mmol/L BUN 9 (7-17) mg/dL Creatinine 0.6 L (0.7-1.2) mg/dL Estimated GFR > 60 ml/min BUN/Creatinine Ratio 15.00 % Glucose 128 H (65-100) mg/dL Calcium 8.9 (8.4-10.2) mg/dL HCG, Qual Negative (Negative) Urine Color (Yellow) Urine Turbidity (Clear) Urine pH (5.0-7.0) Ur Specific [place] (1.003-1.030) Urine Protein (Negative) mg/dL Urine Glucose (UA) (Negative) mg/dL Urine Ketones (Negative) mg/dL Urine Blood (Negative) Urine Nitrite (Negative) Urine Bilirubin (Negative) Urine Urobilinogen (<2.0) mg/dL Ur Leukocyte Esterase (Negative) Urine WBC (Auto) (0.0-6.0) /HPF Urine RBC (Auto) (0.0-6.0) /HPF U Epithel Cells (Auto) (0-13.0) /HPF Urine Mucus /HPF Urine Opiates Screen Urine Methadone Screen Ur Barbiturates Screen Ur Phencyclidine Scrn Ur Amphetamines Screen U Benzodiazepines Scrn Urine Cocaine Screen U Marijuana (THC) Screen Drugs of Abuse Note Plasma/Serum Alcohol < 0.01 (0-0.07) gm% 07/02/16 07/02/16 07/02/16 Range/Units 00:15 00:24 00:24 WBC 12.8 H (4.5-11.0) K/mm3 RBC 4.91 (3.65-5.03) M/mm3 Hgb 12.2 (10.1-14.3) gm/dl Hct 37.3 (30.3-42.9) % MCV 76 L (79-97) fl MCH 25 L (28-32) pg MCHC 33 (30-34) % RDW 17.3 H (13.2-15.2) % Plt Count 267 (140-440) K/mm3 Lymph % (Auto) 32.2 (13.4-35.0) % [place] % (Auto) 6.0 (0.0-7.3) % Eos % (Auto) 0.9 (0.0-4.3) % Baso % (Auto) 1.2 (0.0-1.8) % Lymph # 4.1 (1.2-5.4) K/mm3 [place] # 0.8 (0.0-0.8) K/mm3 Eos # 0.1 (0.0-0.4) K/mm3 Baso # 0.1 (0.0-0.1) K/mm3 Seg Neutrophils % 59.7 (40.0-70.0) % Seg Neutrophils # 7.6 (1.8-7.7) K/mm3 Sodium (137-145) mmol/L Potassium (3.6-5.0) mmol/L Chloride (98-107) mmol/L Carbon Dioxide (22-30) mmol/L Anion Gap mmol/L BUN (7-17) mg/dL Creatinine (0.7-1.2) mg/dL Estimated GFR ml/min BUN/Creatinine Ratio % Glucose (65-100) mg/dL Calcium (8.4-10.2) mg/dL HCG, Qual (Negative) Urine Color Yellow (Yellow) Urine Turbidity Clear (Clear) Urine pH 7.0 (5.0-7.0) Ur Specific [place] 1.014 (1.003-1.030) Urine Protein <15 mg/dl (Negative) mg/dL Urine Glucose (UA) Neg (Negative) mg/dL Urine Ketones Neg (Negative) mg/dL Urine Blood Neg (Negative) Urine Nitrite Neg (Negative) Urine Bilirubin Neg (Negative) Urine Urobilinogen < 2.0 (<2.0) mg/dL Ur Leukocyte Esterase Neg (Negative) Urine WBC (Auto) 1.0 (0.0-6.0) /HPF Urine RBC (Auto) 1.0 (0.0-6.0) /HPF U Epithel Cells (Auto) 3.0 (0-13.0) /HPF Urine Mucus Few /HPF Urine Opiates Screen Presumptive negative Urine Methadone Screen Presumptive negative Ur Barbiturates Screen Presumptive negative Ur Phencyclidine Scrn Presumptive negative Ur Amphetamines Screen Presumptive negative U Benzodiazepines Scrn Presumptive negative Urine Cocaine Screen Presumptive negative U Marijuana (THC) Screen Presumptive negative Drugs of Abuse Note Disclamer Plasma/Serum Alcohol (0-0.07) gm% - Medical Decision Making 1013 and transfer forms signed. Patient requires inpatient treatment for suicidal ideation. She is medically cleared. Her current medication will be continued - Differential Diagnosis depression, psychosis, suicidal ideation Critical Care Time: No Critical care attestation.: If time is entered above; I have spent that time in minutes in the direct care of this critically ill patient, excluding procedure time. ED Disposition Clinical Impression: Suicidal ideation, Diabetes 1.5, managed as type 2, Bipolar disorder, Medical clearance for psychiatric admission Disposition: DC/TX PSY HOSP/PSY UNIT Is pt being admited?: No Does the pt Need Aspirin: No Condition: Stable Time of Disposition: 05:49 (awaiting acceptance)
[2016-07-02] MEDS ORDERED: MILK OF MAGNESIA PO PRN (06:05)
[2016-07-02] MEDS ORDERED: ALUM-MAG HYDROX-SIMETH 200-200-20MG/5ML PO PRN (06:05)
[2016-07-02] MEDS ORDERED: TYLENOL PO PRN (06:05)
[2016-07-02] MEDS ORDERED: GEODON PO SCH (10:00)
[2016-07-02] MEDS ORDERED: NON-FORMULARY (Ziprasidone Hcl [Geodon] 80 MG) PO SCH (10:00)
[2016-07-02] MEDS ORDERED: CYMBALTA PO SCH (10:00)
[2016-07-02] MEDS ORDERED: HABITROL TD ONE (15:37)
[2016-07-02 17:17] VITALS: BP 116/76
--- NOTE | 2016-07-02 17:20 | Consultation ---
History of Present Illness - Reason for Consult Consult date: 07/02/16 Reason for consult: Suicidal Ideation - History of Present Psychiatric Illness CHIEF COMPLAINT IN PATIENTS WORDS: " ran out of suboxone" HISTORY OF PRESENT ILLNESS REQUIRING ADMISSION TO INPATIENT LEVEL OF CARE: (Describe the onset of Illness, Intensity of Symptoms, and Circumstances Leading to Admission) This is a 36-year-old female with a past medical history of diabetes, SLE and hydradenitis and a past psychiatric history of bipolar disorder and opiate dependence who now presents with complaints of suicidal thoughts. Patient was evaluated by the ER physician and medically cleared prior to my assessment. Per review of medical record patient notes that her godmother recently and the patient has been expressing suicidal thoughts without plan for the past 48 hours. Patient is a recent resident of the partial hospitalization program at [facility]. Patient notes that she was hospitalized at [facility] in the care of Dr. mock any who had prescribed her Suboxone. On discharge, patient was transferred to the [place] to continue her treatment, where she obtained the Suboxone prescription for several weeks and appropriately ran out about a week ago. Her last use was 1 week ago and she has undergone the acute withdrawal syndrome from the discontinuation of Suboxone. Currently patient notes that her psychiatrist in the partial program, Dr. Cui, is unable to provide this medication due to lack of a license. Patient notes that she simply return to the ER and would like to go back to [facility] so that she can reinitiate therapy with Suboxone. She has a chronic pain syndrome related to her SLE and is likely experiencing pain in the context of the withdrawal syndrome. PSYCHIATRIC REVIEW OF SYSTEMS: Depression: Depressed mood, suicidal thoughts [place]: None noted Psychosis: No current AVH. No grandiosity and no paranoia Anxiety/ OCD/ PTSD: Patient is having somatic symptoms as well as frequent worrying Suicidality: No suicidal plan noted Other Self-Injurious Behavior: No self-injurious behaviors noted Violent/ Aggressive Behavior: None noted CURRENT MEDICATIONS: ( Psychiatric and Non-psychiatric ) Cymbalta 90 mg daily Lantus 25 units subcutaneous daily at bedtime Geodon 80 mg twice a day Trazodone 100 mg at bedtime Humulin 10 units subcutaneous before meals ALLERGIES: NKDA PAST PSYCHIATRIC HISTORY: ( Prior Treatment, Precipitating Factors, Diagnosis, and Course of Treatment ) Previous inpatient hospitalization at [place] PAST PSYCHIATRIC MEDICATION TRIALS: Did not obtain MEDICAL HISTORY: (Chronic and Acute Illnesses, Current Medical Treatment, Recent Hospitalizations) SLE Diabetes Hydradenitis HISTORY OF TRAUMA/ABUSE: Unable to obtain DRUG / ALCOHOL ABUSE HISTORY: Currently using prescription Suboxone Previously used Percocet up to 10 tablets daily, patient has been using for several years prior to treatment with Suboxone therapy Detoxification / Withdrawal: none noted clinical examination SOCIAL HISTORY: (Educational Level, Employment, Support System, Interpersonal Relationships) Disabled, likely undomiciled FAMILY HISTORY: Psychiatric/Substance Abuse Unknown MENTAL STATUS EXAM: Consciousness: alert and responding to external stimuli General Appearance: In hospital gown Eye Contact: Intermittent Attitude / Behavior: Not well related Sensorium: clear Psychomotor & Musculoskeletal Activity: Lying comfortably on hospital bed, reduce motor activity noted Mood: Sad Affect: Constricted Speech / Language: Fluent, normal rate and rhythm tone Thought Processes: Linear, logical, perseverative Thought Content: Positive SI, worries about pain Perception: No AVH, no paranoia Orientation: person, place, time, situation Concentration/Attention WORLD backwards: Unable to obtain Memory Immediate Digit Span (4-2-3-9-3-1-5): Unable to obtain Memory Recent (Objects: Lamp, Umbrella, and Telephone) Patient Response: Unable to obtain Memory Remote (Name as many presidents as you can starting with current one and going backwards) Patient Response: Unable to obtain Judgment What would you do if you smelled smoke in a crowded movie theater?: poor/impulsive Insight: poor Intelligence Vocabulary, general fund of knowledge, educational level : Below Average Capacity of ADLs: Independent STRENGTHS: PSYCHOSOCIAL AND ENVIRONMENTAL STRESSORS: Recent of godmother Unable to obtain Suboxone ADMITTING DIAGNOSES Psychiatric: Bipolar Disorder most recent episode depressed without psychotic features Opiate dependence on partial agonist/antagonist therapy via Suboxone Medical: Diabetes SLE Hydradenitis X Upon Review of the patients status as stated above, there is reasonable expectation that the patient will make timely and significant practical improvement in the presenting symptoms as a result of the inpatient psychiatric hospitalization. EXPECTATION OF IMPROVEMENT: Fair Medication Education provided; including medication risks and benefits Black Box Warning Education given for SSRI/SNRI: Medication: INITIAL PLAN OF CARE AND TREATMENT GOALS: Provide symptomatic relief for opiate withdrawal INITIAL DISCHARGE PLAN: Inpatient hospitalization for acute treatment of opiate withdrawal and maintenance of safety in the context of worsening symptoms of depression related to her bipolar disorder and abrupt discontinuation of Suboxone Medications and Allergies Allergies Allergy/AdvReac Type Severity Reaction Status Date / Time egg Allergy Hives Verified 07/02/16 02:56 tramadol HCl [From Ultram] Allergy Hives Verified 07/02/16 02:56 vancomycin Allergy Hives Verified 07/02/16 02:56 Home Medications Medication Instructions Recorded Confirmed Last Taken Type Duloxetine HCl [Cymbalta] 90 mg PO QDAY 05/31/16 07/02/16 Unknown History Ziprasidone HCl [Geodon] 80 mg PO BID 05/31/16 07/02/16 Unknown History traZODone [Desyrel] 150 mg PO QHS 05/31/16 07/02/16 Unknown History Insulin Glargine [Lantus] 25 unit SUB-Q QHS 07/02/16 07/02/16 Unknown History Insulin Regular, Human [HumuLIN R] 10 unit SQ AC 07/02/16 07/02/16 Unknown History Active Meds: Active Medications Acetaminophen (Tylenol) 650 mg PO Q4HR PRN PRN Reason: Pain MILD(1-3)/Fever >100.5/COELHO Al Hydrox/Mg Hydrox/Simethicone (Alum-Mag Hydrox-Simeth [id number]/5ml) 30 ml PO Q4HR PRN PRN Reason: Indigestion Duloxetine HCl (Cymbalta) 90 mg PO QDAY [facility] Last Admin: 07/02/16 11:48 Dose: 90 mg Insulin Detemir (Levemir) 25 units SUB-Q QHS [facility] Insulin Human Regular (Novolin R) 10 units SUB-Q [facility] PRN Reason: Protocol Last Admin: 07/02/16 11:55 Dose: 10 units Magnesium Hydroxide (Milk Of Magnesia) 30 ml PO Q12HR PRN PRN Reason: Constipation Trazodone HCl (Desyrel) 150 mg PO QHS [facility] Ziprasidone (Geodon) 80 mg PO BID [facility] Last Admin: 07/02/16 11:48 Dose: 80 mg Mental Status Exam - Vital signs Last Vital Signs Temp 99.1 F 07/02/16 01:51 Pulse 81 07/02/16 01:51 Resp 20 07/02/16 06:43 BP 146/91 07/02/16 01:51 Pulse Ox 98 07/02/16 06:43 Results Result Diagrams: 07/02/16 00:15 07/02/16 00:14 Abnormal lab results 07/02/16 07/02/16 Range/Units 00:14 00:15 WBC 12.8 H (4.5-11.0) K/mm3 MCV 76 L (79-97) fl MCH 25 L (28-32) pg RDW 17.3 H (13.2-15.2) % Carbon Dioxide 20 L (22-30) mmol/L Creatinine 0.6 L (0.7-1.2) mg/dL Glucose 128 H (65-100) mg/dL All other labs normal.
[2016-07-02] MEDS ORDERED: DESYREL PO SCH (22:00)
[2016-07-02] MEDS ORDERED: INSULIN GLARGINE 25 UNIT SUB-Q SCH (22:00)
[2016-07-02] MEDS ORDERED: LEVEMIR SUB-Q SCH (22:00)
== END 2016-07-02 17:19 ==
LOC: ED 23:18 → EEVIPCON 23:18 → ED 07-02 17:19
DX: F31.81 Bipolar II disorder (principal); R45.851 Suicidal ideations; E11.9 Type 2 diabetes mellitus without complications; F17.200 Nicotine dependence, unspecified, uncomplicated
CPT/HCPCS: 36415; 80048; 80307; 81001; 82962; 84703; 85025; 96372; 99285; G0480; 80320; J1818

== ENCOUNTER 2016-08-09 23:23 | Emergency (ER) | payer MEDICARE ==
[2016-08-10] MEDS ORDERED: TORADOL IM ONE (10:07)
[2016-08-10] MEDS ORDERED: PERCOCET 5/325 PO ONE (10:07)
[2016-08-10 10:26] LABS: Basophils % (Auto) 0.6 % (0.0-1.8); Eosinophils % (Auto) 1.5 % (0.0-4.3); Hematocrit 39.7 % (30.3-42.9); Hemoglobin 12.8 gm/dl (10.1-14.3); Mean Corpuscular HGB Conc 32 % (30-34); Mean Corpuscular Volume 77 fl (79-97); Platelet Count 264 K/mm3 (140-440); Red Blood Count 5.17 M/mm3 (3.65-5.03); Red Cell Distribution Width 17.8 % (13.2-15.2); White Blood Count 9.7 K/mm3 (4.5-11.0)
[2016-08-10 10:29] LABS: Mean Corpuscular Hemoglobin 25 pg (28-32)
[2016-08-10 10:46] LABS: Anion Gap 18 mmol/L; BUN/Creatinine Ratio 11.66; Blood Urea Nitrogen 7 mg/dL (7-17); Carbon Dioxide 23 mmol/L (22-30); Chloride 102.1 mmol/L (98-107); Glucose 242 mg/dL (65-100); Potassium 4.8 mmol/L (3.6-5.0); Sodium 138 mmol/L (137-145)
[2016-08-10 10:54] LABS: Urine Drugs of Abuse Note Disclamer
[2016-08-10 11:04] LABS: Bilirubin,Urine NEG (Negative); Blood,Urine NEG (Negative); Ketones,Urine NEG (Negative); Leukocyte Esterase,Urine NEG (Negative); Mucus,Urine FEW /HPF; Nitrite,Urine NEG (Negative); Protein,Urine <15 mg/dL mg/dL (Negative); Urobilinogen,Urine < 2.0 mg/dL (<2.0)
--- NOTE | 2016-08-10 11:29 | Emergency Department Report ---
ED General Adult HPI - General Chief complaint: Pain General Stated complaint: POSS ELEVATED BS/LUPUS FLARE Time Seen by Provider: 08/10/16 10:04 Source: patient Mode of arrival: Ambulatory Limitations: No Limitations - History of Present Illness Initial comments: 36-year-old female with a past medical history Lupus, bipolar, diabetes, and narcotic abuse as per previous medical record presents to the hospital complains of lupus flare. Patient states that she is has generalized joint pain for the last 2 days has moderate to severe in intensity that is constant. Not alleviated with ibuprofen 800 mg. Patient also states her glucose has been ranging from high to low extremes. No reports of fever, nausea, vomiting, chest pain, shortness of breath, abdominal pain, or leg edema. PMD: Dr. Malik. Severity scale (0 -10): 9 - Related Data Home Medications Medication Instructions Recorded Confirmed Last Taken Insulin Glargine [Lantus] 25 unit SUB-Q QHS 07/02/16 08/10/16 08/09/16 Insulin Regular, Human [HumuLIN R] 10 unit SQ TID 07/02/16 08/10/16 08/09/16 Ibuprofen [Motrin] 800 mg PO Q8HR PRN 08/10/16 08/10/16 08/09/16 Previous Rx's Medication Instructions Recorded Last Taken Type Ibuprofen [Motrin] 800 mg PO Q8HR PRN #30 tablet 08/10/16 Unknown Rx oxyCODONE /ACETAMINOPHEN [Percocet 1 tab PO Q6HR PRN #20 tablet 08/10/16 Unknown Rx 5/325] Allergies Allergy/AdvReac Type Severity Reaction Status Date / Time egg Allergy Hives Verified 07/02/16 02:56 tramadol HCl [From Ultram] Allergy Hives Verified 07/02/16 02:56 vancomycin Allergy Hives Verified 07/02/16 02:56 ED Review of Systems ROS: Stated complaint: POSS ELEVATED BS/LUPUS FLARE Other details as noted in HPI Comment: All other systems reviewed and negative Other: Constitutional: No fevers chills Eyes: No eye pain visual changes ENT: No ear pain or throat pain Neck: Denies pain Respiratory: Denies cough wheezing shortness of breath Cardiovascular: Denies chest pain, palpitations, syncope GI: Denies abdominal pain, nausea, vomiting, diarrhea : Denies dysuria Musculoskeletal: As per HPI Skin: Denies rash, lesions, erythema Neurologic: Denies headache, numbness, weakness Psychiatric: Denies suicidal ideation, hallucinations ED Past Medical Hx - Past Medical History Previous Medical History?: Yes Hx Diabetes: Yes Hx Psychiatric Treatment: Yes (BIPOLAR Boderline personality) Additional medical history: LUPUS, hidradenitis - Surgical History Additional Surgical History: Breast reduction bilateral,excisional surg. for abscess - Social History Smoking Status: Current Every Day Smoker Substance Use Type: Marijuana - Medications Home Medications: Home Medications Medication Instructions Recorded Confirmed Last Taken Type Insulin Glargine [Lantus] 25 unit SUB-Q QHS 07/02/16 08/10/16 08/09/16 History Insulin Regular, Human [HumuLIN R] 10 unit SQ TID 07/02/16 08/10/16 08/09/16 History Ibuprofen [Motrin] 800 mg PO Q8HR PRN 08/10/16 08/10/16 08/09/16 History Ibuprofen [Motrin] 800 mg PO Q8HR PRN #30 tablet 08/10/16 Unknown Rx oxyCODONE /ACETAMINOPHEN [Percocet 1 tab PO Q6HR PRN #20 tablet 08/10/16 Unknown Rx 5/325] ED Physical Exam - General Limitations: No Limitations - Other Other exam information: General: No limitations, patient is alert in no acute distress Head exam: Atraumatic, normocephalic Eyes exam: Normal appearance ENT: Moist mucous membrane, normal oropharynx Neck exam: Normal inspection, full range of motion, no meningismus nontender Respiratory exam: Clear to auscultation bilateral, no wheezes, rales, crackles Cardiovascular: Normal rate and rhythm, normal heart sounds Abdomen: Soft, nondistended, and nontender, with normal bowel sounds, no rebound, or guarding Extremity: Full range of motion normal inspection no deformity, no erythema or warmth to joints Back: Normal Inspection, full range of motion, no tenderness Neurologic: Alert, oriented x3, cranial nerves intact, no motor or sensory deficit Psychiatric: normal affect, normal mood Skin: Warm, dry, intact, no erythema or warmth ED Course Vital Signs 08/10/16 08/10/16 06:31 10:35 Temperature 99.3 F Pulse Rate 97 H Respiratory 20 20 Rate Blood Pressure 145/89 O2 Sat by Pulse 97 Oximetry - Reevaluation(s) Reevaluation #1: 05/09/17 11:27 Patient treated with 2 Percocet and Toradol. Sliding scale insulin also ordered ED Medical Decision Making - Lab Data Result diagrams: 08/10/16 10:14 08/10/16 10:14 Lab Results 08/09/16 08/10/16 08/10/16 Range/Units 23:35 10:14 10:14 WBC 9.7 (4.5-11.0) K/mm3 RBC 5.17 H (3.65-5.03) M/mm3 Hgb 12.8 (10.1-14.3) gm/dl Hct 39.7 (30.3-42.9) % MCV 77 L (79-97) fl MCH 25 L (28-32) pg MCHC 32 (30-34) % RDW 17.8 H (13.2-15.2) % Plt Count 264 (140-440) K/mm3 Lymph % (Auto) 35.1 H (13.4-35.0) % Rice % (Auto) 6.4 (0.0-7.3) % Eos % (Auto) 1.5 (0.0-4.3) % Baso % (Auto) 0.6 (0.0-1.8) % Lymph # 3.4 (1.2-5.4) K/mm3 Rice # 0.6 (0.0-0.8) K/mm3 Eos # 0.1 (0.0-0.4) K/mm3 Baso # 0.1 (0.0-0.1) K/mm3 Seg Neutrophils % 56.4 (40.0-70.0) % Seg Neutrophils # 5.4 (1.8-7.7) K/mm3 Sodium 138 (137-145) mmol/L Potassium 4.8 (3.6-5.0) mmol/L Chloride 102.1 (98-107) mmol/L Carbon Dioxide 23 (22-30) mmol/L Anion Gap 18 mmol/L BUN 7 (7-17) mg/dL Creatinine 0.6 L (0.7-1.2) mg/dL Estimated GFR > 60 ml/min BUN/Creatinine Ratio 11.66 % Glucose 242 H (65-100) mg/dL POC Glucose 246 H (70-105) Calcium 9.0 (8.4-10.2) mg/dL HCG, Qual (Negative) Urine Color (Yellow) Urine Turbidity (Clear) Urine pH (5.0-7.0) Ur Specific [place] (1.003-1.030) Urine Protein (Negative) mg/dL Urine Glucose (UA) (Negative) mg/dL Urine Ketones (Negative) mg/dL Urine Blood (Negative) Urine Nitrite (Negative) Urine Bilirubin (Negative) Urine Urobilinogen (<2.0) mg/dL Ur Leukocyte Esterase (Negative) Urine WBC (Auto) (0.0-6.0) /HPF Urine RBC (Auto) (0.0-6.0) /HPF U Epithel Cells (Auto) (0-13.0) /HPF Urine Mucus /HPF 08/10/16 08/10/16 Range/Units 10:14 10:28 WBC (4.5-11.0) K/mm3 RBC (3.65-5.03) M/mm3 Hgb (10.1-14.3) gm/dl Hct (30.3-42.9) % MCV (79-97) fl MCH (28-32) pg MCHC (30-34) % RDW (13.2-15.2) % Plt Count (140-440) K/mm3 Lymph % (Auto) (13.4-35.0) % Rice % (Auto) (0.0-7.3) % Eos % (Auto) (0.0-4.3) % Baso % (Auto) (0.0-1.8) % Lymph # (1.2-5.4) K/mm3 Rice # (0.0-0.8) K/mm3 Eos # (0.0-0.4) K/mm3 Baso # (0.0-0.1) K/mm3 Seg Neutrophils % (40.0-70.0) % Seg Neutrophils # (1.8-7.7) K/mm3 Sodium (137-145) mmol/L Potassium (3.6-5.0) mmol/L Chloride (98-107) mmol/L Carbon Dioxide (22-30) mmol/L Anion Gap mmol/L BUN (7-17) mg/dL Creatinine (0.7-1.2) mg/dL Estimated GFR ml/min BUN/Creatinine Ratio % Glucose (65-100) mg/dL POC Glucose (70-105) Calcium (8.4-10.2) mg/dL HCG, Qual Negative (Negative) Urine Color Yellow (Yellow) Urine Turbidity Clear (Clear) Urine pH 6.0 (5.0-7.0) Ur Specific [place] 1.015 (1.003-1.030) Urine Protein <15 mg/dl (Negative) mg/dL Urine Glucose (UA) >=500 (Negative) mg/dL Urine Ketones Neg (Negative) mg/dL Urine Blood Neg (Negative) Urine Nitrite Neg (Negative) Urine Bilirubin Neg (Negative) Urine Urobilinogen < 2.0 (<2.0) mg/dL Ur Leukocyte Esterase Neg (Negative) Urine WBC (Auto) 1.0 (0.0-6.0) /HPF Urine RBC (Auto) 1.0 (0.0-6.0) /HPF U Epithel Cells (Auto) < 1.0 (0-13.0) /HPF Urine Mucus Few /HPF - Medical Decision Making No acute lab abnormality over the hyperglycemia which is slightly decreased compared to Accu-Chek 11 hours prior. Patient will be given subcutaneous insulin. Patient will be discharged several doses of pain medication for " lupus flare". Outpatient follow-up will be encouraged - Differential Diagnosis infection, drug-seeking, lupus flare Critical Care Time: No Critical care attestation.: If time is entered above; I have spent that time in minutes in the direct care of this critically ill patient, excluding procedure time. ED Disposition Clinical Impression: Lupus, Arthralgia, Diabetes Disposition: DISCHARGED TO HOME OR SELFCARE Is pt being admited?: No Does the pt Need Aspirin: No Condition: Stable Instructions: Arthralgia (ED), Diabetes Mellitus Type 2 in Adults (ED) Additional Instructions: Take the medication as prescribed. Follow-up with your primary care doctor. Return if symptoms worsen. Prescriptions: Ibuprofen [Motrin] 800 mg PO Q8HR PRN #30 tablet PRN Reason: Pain oxyCODONE /ACETAMINOPHEN [Percocet 5/325] 1 tab PO Q6HR PRN #20 tablet PRN Reason: Pain Referrals: PRIMARY CARE, [Primary Care Provider] - 2-3 Days Time of Disposition: 11:50
[2016-08-10 11:56] VITALS: BP 143/75
== END 2016-08-10 11:56 | disposition home or self-care (01) ==
LOC: ED 23:23
DX: M32.8 Other forms of systemic lupus erythematosus (principal); E11.9 Type 2 diabetes mellitus without complications; M25.50 Pain in unspecified joint; F31.9 Bipolar disorder, unspecified; F17.200 Nicotine dependence, unspecified, uncomplicated; F12.10 Cannabis abuse, uncomplicated; Z88.8 Allergy status to other drugs, medicaments and biological substances; Z91.012 Allergy to eggs; Z91.018 Allergy to other foods
CPT/HCPCS: 36415; 80048; 80307; 81001; 82962; 84703; 85025; 96372; 99283; J1885; J1815

== ENCOUNTER 2016-08-10 23:33 | Emergency (ER) | payer MEDICARE ==
[2016-08-11 03:52] VITALS: BP 153/86
[2016-08-11 04:31] LABS: Basophils % (Auto) 0.6 % (0.0-1.8); Eosinophils % (Auto) 1.8 % (0.0-4.3); Hematocrit 37.8 % (30.3-42.9); Hemoglobin 12.2 gm/dl (10.1-14.3); Mean Corpuscular HGB Conc 32 % (30-34); Mean Corpuscular Volume 78 fl (79-97); Platelet Count 258 K/mm3 (140-440); Red Blood Count 4.84 M/mm3 (3.65-5.03); Red Cell Distribution Width 17.6 % (13.2-15.2); White Blood Count 11.1 K/mm3 (4.5-11.0)
[2016-08-11 04:34] LABS: Mean Corpuscular Hemoglobin 25 pg (28-32)
[2016-08-11 04:40] LABS: Anion Gap 21 mmol/L; BUN/Creatinine Ratio 13.75; Blood Urea Nitrogen 11 mg/dL (7-17); Calcium 8.8 mg/dL (8.4-10.2); Carbon Dioxide 19 mmol/L (22-30); Chloride 99.8 mmol/L (98-107); Glucose 400 mg/dL (65-100); Potassium 4.7 mmol/L (3.6-5.0); Sodium 135 mmol/L (137-145)
[2016-08-11 04:41] LABS: Amylase 71 units/L (27-131); Lipase 74 units/L (13-60)
== END 2016-08-11 04:24 | disposition left against medical advice (07) ==
LOC: ED 23:33
DX: R11.2 Nausea with vomiting, unspecified (principal); Z53.21 Procedure and treatment not carried out due to patient leaving prior to being seen by health care provider
CPT/HCPCS: 36415; 80048; 82150; 83690; 85025

== ENCOUNTER 2016-08-16 10:02 | Emergency (ER) | payer MEDICARE ==
[2016-08-16 10:31] VITALS: BP 133/89
--- NOTE | 2016-08-16 10:39 | Emergency Department Report ---
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 Due to findings the following was ordered: ED Disposition for MSE Condition: Stable
[2016-08-16 10:53] LABS: Urine Drugs of Abuse Note Disclamer
[2016-08-16 10:59] LABS: Basophils % (Auto) 0.6 % (0.0-1.8); Eosinophils % (Auto) 0.4 % (0.0-4.3); Hematocrit 39.3 % (30.3-42.9); Hemoglobin 12.8 gm/dl (10.1-14.3); Mean Corpuscular HGB Conc 32 % (30-34); Mean Corpuscular Volume 77 fl (79-97); Platelet Count 250 K/mm3 (140-440); Red Blood Count 5.11 M/mm3 (3.65-5.03); Red Cell Distribution Width 17.7 % (13.2-15.2); White Blood Count 12.6 K/mm3 (4.5-11.0)
[2016-08-16 11:04] LABS: Mean Corpuscular Hemoglobin 25 pg (28-32)
[2016-08-16 11:17] LABS: Alanine Aminotransferase 17 units/L (7-56); Albumin/Globulin Ratio 1.1 %; Alkaline Phosphatase 103 units/L (35-129); Anion Gap 21 mmol/L; BUN/Creatinine Ratio 12.22; Blood Urea Nitrogen 11 mg/dL (7-17); Calcium 9.2 mg/dL (8.4-10.2); Carbon Dioxide 23 mmol/L (22-30); Chloride 97.4 mmol/L (98-107); Glucose 391 mg/dL (65-100); Potassium 4.6 mmol/L (3.6-5.0); Sodium 137 mmol/L (137-145); Total Protein 7.5 g/dL (6.3-8.2)
[2016-08-16 11:25] LABS: Bilirubin,Urine NEG (Negative); Blood,Urine NEG (Negative); Ketones,Urine NEG (Negative); Leukocyte Esterase,Urine MOD (Negative); Nitrite,Urine NEG (Negative); Protein,Urine <15 mg/dL mg/dL (Negative); Urobilinogen,Urine < 2.0 mg/dL (<2.0)
== END 2016-08-16 11:00 | disposition left against medical advice (07) ==
LOC: ED 10:02
DX: E11.65 Type 2 diabetes mellitus with hyperglycemia (principal); Z53.21 Procedure and treatment not carried out due to patient leaving prior to being seen by health care provider
CPT/HCPCS: 36415; 80053; 80307; 81001; 81025; 82962; 83036; 85025

== ENCOUNTER 2016-09-22 00:15 | Emergency (ER) | payer MEDICARE ==
[2016-09-22 01:16] LABS: Hematocrit 38.8 % (30.3-42.9); Hemoglobin 12.7 gm/dl (10.1-14.3); Mean Corpuscular HGB Conc 33 % (30-34); Mean Corpuscular Volume 79 fl (79-97); Platelet Count 258 K/mm3 (140-440); Red Blood Count 4.94 M/mm3 (3.65-5.03); White Blood Count 14.3 K/mm3 (4.5-11.0)
[2016-09-22 01:17] LABS: Mean Corpuscular Hemoglobin 26 pg (28-32)
[2016-09-22 01:31] LABS: Anion Gap 23 mmol/L; BUN/Creatinine Ratio 16.25; Blood Urea Nitrogen 13 mg/dL (7-17); Calcium 8.8 mg/dL (8.4-10.2); Carbon Dioxide 20 mmol/L (22-30); Chloride 93.3 mmol/L (98-107); Potassium 4.4 mmol/L (3.6-5.0); Sodium 132 mmol/L (137-145)
[2016-09-22 01:35] LABS: Glucose 531 mg/dL (65-100)
[2016-09-22 02:12] LABS: Basophils % (Manual) 0 % (0.0-1.8); Blastocytes % (Manual) 0 %; Eosinophils % (Manual) 0 % (0.0-4.3)
[2016-09-22 02:13] LABS: Diff Status Complete; Hypochromasia 1+; Platelet Estimate Consistent w Auto
[2016-09-22] MEDS ORDERED: ZOFRAN IV ONE ×2 (02:24→03:33)
[2016-09-22] MEDS ORDERED: NACL 0.9% 1000 ML 1,000 ML IV ONE ×2 (02:24)
[2016-09-22] MEDS ORDERED: DILAUDID IV ONE ×2 (02:24→06:03)
[2016-09-22 02:28] LABS: Bacteria,Urine 1+ /HPF (Negative); Bilirubin,Urine NEG (Negative); Blood,Urine NEG (Negative); Ketones,Urine NEG (Negative); Leukocyte Esterase,Urine NEG (Negative); Nitrite,Urine NEG (Negative); Protein,Urine <15 mg/dL mg/dL (Negative); Urobilinogen,Urine < 2.0 mg/dL (<2.0)
[2016-09-22] MEDS ORDERED: TORADOL IV ONE (03:33)
--- NOTE | 2016-09-22 04:54 | Emergency Department Report ---
- General Chief complaint: Hyperglycemia Stated complaint: HIGH BLOOD SUGAR Time Seen by Provider: 09/22/16 02:16 Source: patient Mode of arrival: Ambulatory Limitations: No Limitations - History of Present Illness Initial comments: 36-year-old female with a past medical history as dependent diabetes, bipolar, lupus, and borderline personality disorder presents to the hospital complains of elevated blood glucose. Patient was recently transferred for inpatient [place] treatment to the [facility]. She has been there for 2 days and did not have a order from the doctor for insulin. Patient has not received any her insulin 2 days. Today she developed nausea, vomiting, and worsening and lower extremity neuropathy pain. Pain is moderate to severe intensity, constant, without aggravating or alleviating factors. Patient takes narcotics chronically for pain which have been continued at the [facility]. No previous history of DKA. Severity scale (0 -10): 4 - Related Data Home Medications Medication Instructions Recorded Confirmed Last Taken Duloxetine HCl [Cymbalta] 90 mg PO DAILY 09/22/16 09/22/16 Unknown Pregabalin [Lyrica] 300 mg PO BID 09/22/16 09/22/16 Unknown Trazodone HCl 150 mg PO QHS 09/22/16 09/22/16 Unknown Ziprasidone HCl [Geodon] 80 mg PO BID 09/22/16 09/22/16 Unknown oxyCODONE /ACETAMINOPHEN [Percocet 1 tab PO TID PRN 09/22/16 09/22/16 Unknown 5/325] predniSONE [Deltasone] 10 mg PO BID 09/22/16 09/22/16 Unknown Previous Rx's Medication Instructions Recorded Last Taken Type Insulin Glargine [Lantus VIAL] 25 unit SUB-Q QHS 30 Days 09/22/16 Unknown Rx Insulin Regular, Human [HumuLIN R] 10 unit SQ TID 30 Days 09/22/16 Unknown Rx Allergies Allergy/AdvReac Type Severity Reaction Status Date / Time egg Allergy Hives Verified 07/02/16 02:56 tramadol HCl [From Ultram] Allergy Hives Verified 07/02/16 02:56 vancomycin Allergy Hives Verified 07/02/16 02:56 ED Review of Systems ROS: Stated complaint: HIGH BLOOD SUGAR Other details as noted in HPI Comment: All other systems reviewed and negative Other: Constitutional: No fevers chills or weight loss Eyes: No eye pain visual changes or discharge ENT: No ear pain or throat pain Neck: Denies pain Respiratory: Denies cough wheezing shortness of breath Cardiovascular: Denies chest pain, palpitations, syncope Endocrine: elevated glucose GI: Denies abdominal pain, nausea, vomiting, diarrhea : Denies dysuria Musculoskeletal: Denies back pain. Positive lower extremity pain/neuropathy Skin: Denies rash, lesions, erythema Neurologic: Denies headache, numbness, weakness Psychiatric: Denies suicidal ideation, hallucinations ED Past Medical Hx - Past Medical History Hx Diabetes: Yes Hx Psychiatric Treatment: Yes (BIPOLAR Boderline personality) Additional medical history: LUPUS, hidradenitis - Surgical History Additional Surgical History: Breast reduction bilateral,excisional surg. for abscess - Social History Smoking Status: Current Every Day Smoker Substance Use Type: Marijuana - Medications Home Medications: Home Medications Medication Instructions Recorded Confirmed Last Taken Type Duloxetine HCl [Cymbalta] 90 mg PO DAILY 09/22/16 09/22/16 Unknown History Insulin Glargine [Lantus VIAL] 25 unit SUB-Q QHS 30 Days 09/22/16 Unknown Rx Insulin Regular, Human [HumuLIN R] 10 unit SQ TID 30 Days 09/22/16 Unknown Rx Pregabalin [Lyrica] 300 mg PO BID 09/22/16 09/22/16 Unknown History Trazodone HCl 150 mg PO QHS 09/22/16 09/22/16 Unknown History Ziprasidone HCl [Geodon] 80 mg PO BID 09/22/16 09/22/16 Unknown History oxyCODONE /ACETAMINOPHEN [Percocet 1 tab PO TID PRN 09/22/16 09/22/16 Unknown History 5/325] predniSONE [Deltasone] 10 mg PO BID 09/22/16 09/22/16 Unknown History ED Physical Exam - General Limitations: No Limitations - Other Other exam information: General: No limitations, patient is alert in no acute distress Head exam: Atraumatic, normocephalic Eyes exam: Normal appearance, pupils equal reactive to light, extraocular movements intact, nonicteric sclera ENT: Moist mucous membrane, normal oropharynx Neck exam: Normal inspection, full range of motion Respiratory exam: Clear to auscultation bilateral, no wheezes, rales, crackles Cardiovascular: Normal rate and rhythm, normal heart sounds Abdomen: Soft, nondistended, and nontender, with normal bowel sounds, no rebound, or guarding Extremity: Full range of motion normal inspection no deformity Back: Normal Inspection, full range of motion, no tenderness Neurologic: Alert, oriented x3, cranial nerves intact, no motor or sensory deficit Psychiatric: normal affect, normal mood Skin: Warm, dry, intact ED Course Vital Signs 09/22/16 09/22/16 09/22/16 01:01 02:36 02:56 Temperature 97.9 F Pulse Rate 102 H 88 Respiratory 16 20 Rate Blood Pressure 153/80 O2 Sat by Pulse 100 Oximetry 09/22/16 03:26 Temperature Pulse Rate Respiratory 18 Rate Blood Pressure O2 Sat by Pulse Oximetry ED Medical Decision Making - Lab Data Result diagrams: 09/22/16 00:54 09/22/16 00:54 Lab Results 09/22/16 09/22/16 09/22/16 Range/Units 00:44 00:54 00:54 WBC 14.3 H (4.5-11.0) K/mm3 RBC 4.94 (3.65-5.03) M/mm3 Hgb 12.7 (10.1-14.3) gm/dl Hct 38.8 (30.3-42.9) % MCV 79 (79-97) fl MCH 26 L (28-32) pg MCHC 33 (30-34) % RDW 17.0 H (13.2-15.2) % Plt Count 258 (140-440) K/mm3 Lymph # Underwear Trimmer Add Manual Diff Complete Total Counted 100 Seg Neuts % (Manual) 72.0 H (40.0-70.0) % Band Neutrophils % 0 % Lymphocytes % (Manual) 24.0 (13.4-35.0) % Reactive Lymphs % (Man) 0 % Monocytes % (Manual) 4.0 (0.0-7.3) % Eosinophils % (Manual) 0 (0.0-4.3) % Basophils % (Manual) 0 (0.0-1.8) % Metamyelocytes % 0 % Myelocytes % 0 % Promyelocytes % 0 % Blast Cells % 0 % Nucleated RBC % Not Reportable Seg Neutrophils # Man 10.3 H (1.8-7.7) K/mm3 Band Neutrophils # 0.0 K/mm3 Lymphocytes # (Manual) 3.4 (1.2-5.4) K/mm3 Abs React Lymphs (Man) 0.0 K/mm3 Monocytes # (Manual) 0.6 (0.0-0.8) K/mm3 Eosinophils # (Manual) 0.0 (0.0-0.4) K/mm3 Basophils # (Manual) 0.0 (0.0-0.1) K/mm3 Metamyelocytes # 0.0 K/mm3 Myelocytes # 0.0 K/mm3 Promyelocytes # 0.0 K/mm3 Blast Cells # 0.0 K/mm3 WBC Morphology Not Reportable Hypersegmented Neuts Not Reportable Hyposegmented Neuts Not Reportable Hypogranular Neuts Not Reportable Smudge Cells Not Reportable Toxic Granulation Not Reportable Toxic Vacuolation Not Reportable Dohle Bodies Not Reportable Pelger-Huet Anomaly Not Reportable Hugo Rods Not Reportable Platelet Estimate Consistent w auto Clumped Platelets Not Reportable Plt Clumps, EDTA Not Reportable Large Platelets Not Reportable Giant Platelets Not Reportable Platelet Satelliting Not Reportable Plt Morphology Comment Not Reportable RBC Morphology Not Reportable Dimorphic RBCs Not Reportable Polychromasia Not Reportable Hypochromasia 1+ Poikilocytosis Not Reportable Anisocytosis Not Reportable Microcytosis Not Reportable Macrocytosis Not Reportable Spherocytes Not Reportable Pappenheimer Bodies Not Reportable Sickle Cells Not Reportable Target Cells Not Reportable Tear Drop Cells Not Reportable Ovalocytes Not Reportable Helmet Cells Not Reportable [place] Bodies Not Reportable [place] Rings Not Reportable [place] Cells Not Reportable Bite Cells Not Reportable Crenated Cell Not Reportable Elliptocytes Not Reportable Acanthocytes (Spur) Not Reportable Rouleaux Not Reportable Hemoglobin C Crystals Not Reportable Schistocytes Not Reportable Malaria parasites Not Reportable Jean Bodies Not Reportable Hem Pathologist Commnt No VBG pH (7.320-7.420) Sodium 132 L (137-145) mmol/L Potassium 4.4 (3.6-5.0) mmol/L Chloride 93.3 L (98-107) mmol/L Carbon Dioxide 20 L (22-30) mmol/L Anion Gap 23 mmol/L BUN 13 (7-17) mg/dL Creatinine 0.8 (0.7-1.2) mg/dL Estimated GFR > 60 ml/min BUN/Creatinine Ratio 16.25 % Glucose 531 H* (65-100) mg/dL POC Glucose 468 H (70-105) Calcium 8.8 (8.4-10.2) mg/dL Urine Color (Yellow) Urine Turbidity (Clear) Urine pH (5.0-7.0) Ur Specific [place] (1.003-1.030) Urine Protein (Negative) mg/dL Urine Glucose (UA) (Negative) mg/dL Urine Ketones (Negative) mg/dL Urine Blood (Negative) Urine Nitrite (Negative) Urine Bilirubin (Negative) Urine Urobilinogen (<2.0) mg/dL Ur Leukocyte Esterase (Negative) Urine WBC (Auto) (0.0-6.0) /HPF Urine RBC (Auto) (0.0-6.0) /HPF U Epithel Cells (Auto) (0-13.0) /HPF Urine Bacteria (Auto) (Negative) /HPF 09/22/16 09/22/16 09/22/16 Range/Units 00:54 01:56 04:14 WBC (4.5-11.0) K/mm3 RBC (3.65-5.03) M/mm3 Hgb (10.1-14.3) gm/dl Hct (30.3-42.9) % MCV (79-97) fl MCH (28-32) pg MCHC (30-34) % RDW (13.2-15.2) % Plt Count (140-440) K/mm3 Lymph # Add Manual Diff Total Counted Seg Neuts % (Manual) (40.0-70.0) % Band Neutrophils % % Lymphocytes % (Manual) (13.4-35.0) % Reactive Lymphs % (Man) % Monocytes % (Manual) (0.0-7.3) % Eosinophils % (Manual) (0.0-4.3) % Basophils % (Manual) (0.0-1.8) % Metamyelocytes % % Myelocytes % % Promyelocytes % % Blast Cells % % Nucleated RBC % Seg Neutrophils # Man (1.8-7.7) K/mm3 Band Neutrophils # K/mm3 Lymphocytes # (Manual) (1.2-5.4) K/mm3 Abs React Lymphs (Man) K/mm3 Monocytes # (Manual) (0.0-0.8) K/mm3 Eosinophils # (Manual) (0.0-0.4) K/mm3 Basophils # (Manual) (0.0-0.1) K/mm3 Metamyelocytes # K/mm3 Myelocytes # K/mm3 Promyelocytes # K/mm3 Blast Cells # K/mm3 WBC Morphology Hypersegmented Neuts Hyposegmented Neuts Hypogranular Neuts Smudge Cells Toxic Granulation Toxic Vacuolation Dohle Bodies Pelger-Huet Anomaly Hugo Rods Platelet Estimate Clumped Platelets Plt Clumps, EDTA Large Platelets Giant Platelets Platelet Satelliting Plt Morphology Comment RBC Morphology Dimorphic RBCs Polychromasia Hypochromasia Poikilocytosis Anisocytosis Microcytosis Macrocytosis Spherocytes Pappenheimer Bodies Sickle Cells Target Cells Tear Drop Cells Ovalocytes Helmet Cells Cook-[place] Bodies [place] Rings [place] Cells Bite Cells Crenated Cell Elliptocytes Acanthocytes (Spur) Rouleaux Hemoglobin C Crystals Schistocytes Malaria parasites Jean Bodies Hem Pathologist Commnt VBG pH 7.366 (7.320-7.420) Sodium (137-145) mmol/L Potassium (3.6-5.0) mmol/L Chloride (98-107) mmol/L Carbon Dioxide (22-30) mmol/L Anion Gap mmol/L BUN (7-17) mg/dL Creatinine (0.7-1.2) mg/dL Estimated GFR ml/min BUN/Creatinine Ratio % Glucose (65-100) mg/dL POC Glucose 165 H (70-105) Calcium (8.4-10.2) mg/dL Urine Color Straw (Yellow) Urine Turbidity Clear (Clear) Urine pH 6.0 (5.0-7.0) Ur Specific [place] 1.024 (1.003-1.030) Urine Protein <15 mg/dl (Negative) mg/dL Urine Glucose (UA) >=500 (Negative) mg/dL Urine Ketones Neg (Negative) mg/dL Urine Blood Neg (Negative) Urine Nitrite Neg (Negative) Urine Bilirubin Neg (Negative) Urine Urobilinogen < 2.0 (<2.0) mg/dL Ur Leukocyte Esterase Neg (Negative) Urine WBC (Auto) 1.0 (0.0-6.0) /HPF Urine RBC (Auto) 3.0 (0.0-6.0) /HPF U Epithel Cells (Auto) 1.0 (0-13.0) /HPF Urine Bacteria (Auto) 1+ (Negative) /HPF upt neg - Medical Decision Making Patient has elevated glucose but no signs of DKA. No ketones in the urine and normal venous pH. Patient states the physician should be available to write her prescription for insulin at the [facility]. She will be provided a refill by myself as well. - Differential Diagnosis DKA, hyperglycemia, infection, neuropathy Critical Care Time: No Critical care attestation.: If time is entered above; I have spent that time in minutes in the direct care of this critically ill patient, excluding procedure time. ED Disposition Clinical Impression: Hyperglycemia without ketosis, Noncompliance with medication regimen, Neuropathy, Opiate dependence Disposition: OP ADMIT IP TO THIS HOSP Is pt being admited?: Yes Condition: Stable Instructions: Diabetic Hyperglycemia (ED), Diabetic Neuropathy (ED) Additional Instructions: Take your insulin as prescribed. Return if symptoms worsen. Prescriptions: Insulin Glargine [Lantus VIAL] 25 unit SUB-Q QHS 30 Days Insulin Regular, Human [HumuLIN R] 10 unit SQ TID 30 Days Time of Disposition: 06:05
[2016-09-22 06:44] VITALS: BP 138/88
== END 2016-09-22 06:40 | disposition admitted as inpatient to this hospital (09) ==
LOC: ED 00:15
DX: E11.65 Type 2 diabetes mellitus with hyperglycemia (principal); E11.40 Type 2 diabetes mellitus with diabetic neuropathy, unspecified; F11.20 Opioid dependence, uncomplicated; M32.9 Systemic lupus erythematosus, unspecified; F17.200 Nicotine dependence, unspecified, uncomplicated; F31.9 Bipolar disorder, unspecified; F12.10 Cannabis abuse, uncomplicated; Z79.4 Long term (current) use of insulin; Z88.6 Allergy status to analgesic agent; Z88.1 Allergy status to other antibiotic agents; Z91.012 Allergy to eggs; Z79.899 Other long term (current) drug therapy
CPT/HCPCS: 36415; 80048; 81001; 81025; 82805; 82962; 85007; 85025; 96361; 96374; 96375; 96376; 99284; J1170; J1885; J2405; J7030; J1815

== ENCOUNTER 2016-09-26 22:43 | Emergency (ER) | payer MEDICARE ==
[2016-09-27 01:11] LABS: Anion Gap 19 mmol/L; Blood Urea Nitrogen 7 mg/dL (7-17); Calcium 9.1 mg/dL (8.4-10.2); Carbon Dioxide 24 mmol/L (22-30); Chloride 93.6 mmol/L (98-107); Glucose 302 mg/dL (65-100); Potassium 3.9 mmol/L (3.6-5.0); Sodium 133 mmol/L (137-145)
[2016-09-27 01:16] LABS: Basophils % (Auto) 0.3 % (0.0-1.8); Eosinophils % (Auto) 0.4 % (0.0-4.3); Hematocrit 36.8 % (30.3-42.9); Hemoglobin 12.3 gm/dl (10.1-14.3); Mean Corpuscular HGB Conc 33 % (30-34); Mean Corpuscular Hemoglobin 26 pg (28-32); Mean Corpuscular Volume 78 fl (79-97); Platelet Count 197 K/mm3 (140-440); Red Blood Count 4.73 M/mm3 (3.65-5.03); Red Cell Distribution Width 17.1 % (13.2-15.2)
[2016-09-27 02:47] LABS: Bilirubin,Urine NEG (Negative); Blood,Urine NEG (Negative); Ketones,Urine NEG (Negative); Leukocyte Esterase,Urine NEG (Negative); Mucus,Urine FEW /HPF; Nitrite,Urine NEG (Negative); Protein,Urine <15 mg/dL mg/dL (Negative); Urobilinogen,Urine < 2.0 mg/dL (<2.0)
[2016-09-27] MEDS ORDERED: NACL 0.9% 1000 ML 1,000 ML IV ONE (12:16)
--- NOTE | 2016-09-27 12:31 | Emergency Department Report ---
ED General Adult HPI - General Chief complaint: Hyperglycemia Stated complaint: POSS ELEVATED BS/FOOT PAIN Time Seen by Provider: 09/27/16 12:14 Source: patient Mode of arrival: Ambulatory Limitations: No Limitations - History of Present Illness Initial comments: Pt is a 36 yr old female with DM, Lupus, and hidradenitis who presents to the ER with elevated blood sugar. He reports she's been noticing her fingersticks have been running high at home since yesterday. She reports she takes Humulin 10 units with every meal and Lantus 20 units at bedtime. Patient also reports she recently restarted her prednisone a few weeks ago for her lupus but has not been back to the PMD to have her diabetic medications adjusted. Patient also reports a small abscess on her left inner thigh. Otherwise patient has been her normal baseline health and has no other complaints. No fevers, chills, headache, nausea, vomiting, diarrhea, chest pain, shortness of breath, abdominal pain, extremity pain, travel, or sick contacts. - Related Data Home Medications Medication Instructions Recorded Confirmed Last Taken Duloxetine HCl [Cymbalta] 90 mg PO DAILY 09/22/16 09/23/16 Unknown Pregabalin [Lyrica] 300 mg PO BID 09/22/16 09/23/16 Unknown Trazodone HCl 150 mg PO QHS 09/22/16 09/23/16 Unknown Ziprasidone HCl [Geodon] 80 mg PO BID 09/22/16 09/23/16 Unknown predniSONE [Deltasone] 10 mg PO BID 09/22/16 09/23/16 Unknown Previous Rx's Medication Instructions Recorded Last Taken Type Insulin Detemir [Levemir VIAL] 25 unit SQ QHS #1 vial 09/23/16 Unknown Rx Insulin Aspart [NovoLOG Flexpen] 1 dose SQ AC PRN #1 pen 09/24/16 Unknown Rx Insulin Glargine [Lantus VIAL] 25 unit SUB-Q QHS 30 Days 09/24/16 Unknown Rx Nicotine [Habitrol] 21 mg TD QDAY #30 patch 09/24/16 Unknown Rx Sulfamethoxazole/Trimethoprim 1 each PO BID #14 tablet 09/27/16 Unknown Rx [Bactrim DS TAB] Allergies Allergy/AdvReac Type Severity Reaction Status Date / Time egg Allergy Hives Verified 07/02/16 02:56 tramadol HCl [From Ultram] Allergy Hives Verified 07/02/16 02:56 vancomycin Allergy Hives Verified 07/02/16 02:56 ED Review of Systems ROS: Stated complaint: POSS ELEVATED BS/FOOT PAIN Other details as noted in HPI Comment: All other systems reviewed and negative ED Past Medical Hx - Past Medical History Previous Medical History?: Yes Hx Diabetes: Yes Hx Sickle Cell Disease: No Hx Psychiatric Treatment: Yes (BIPOLAR Boderline personality) Additional medical history: LUPUS, hidradenitis - Surgical History Additional Surgical History: Breast reduction bilateral,excisional surg. for abscess - Social History Smoking Status: Current Every Day Smoker - Medications Home Medications: Home Medications Medication Instructions Recorded Confirmed Last Taken Type Duloxetine HCl [Cymbalta] 90 mg PO DAILY 09/22/16 09/23/16 Unknown History Pregabalin [Lyrica] 300 mg PO BID 09/22/16 09/23/16 Unknown History Trazodone HCl 150 mg PO QHS 09/22/16 09/23/16 Unknown History Ziprasidone HCl [Geodon] 80 mg PO BID 09/22/16 09/23/16 Unknown History predniSONE [Deltasone] 10 mg PO BID 09/22/16 09/23/16 Unknown History Insulin Detemir [Levemir VIAL] 25 unit SQ QHS #1 vial 09/23/16 Unknown Rx Insulin Aspart [NovoLOG Flexpen] 1 dose SQ AC PRN #1 pen 09/24/16 Unknown Rx Insulin Glargine [Lantus VIAL] 25 unit SUB-Q QHS 30 Days 09/24/16 Unknown Rx Nicotine [Habitrol] 21 mg TD QDAY #30 patch 09/24/16 Unknown Rx Sulfamethoxazole/Trimethoprim 1 each PO BID #14 tablet 09/27/16 Unknown Rx [Bactrim DS TAB] ED Physical Exam - General Limitations: No Limitations General appearance: alert, in no apparent distress - Head Head exam: Present: atraumatic, normocephalic - Eye Eye exam: Present: normal appearance - ENT ENT exam: Present: mucous membranes moist - Neck Neck exam: Present: normal inspection - Respiratory Respiratory exam: Present: normal lung sounds bilaterally. Absent: respiratory distress - Cardiovascular Cardiovascular Exam: Present: regular rate, normal rhythm. Absent: systolic murmur, diastolic murmur, rubs, gallop - GI/Abdominal GI/Abdominal exam: Present: soft, normal bowel sounds - Extremities Exam Extremities exam: Present: normal inspection - Back Exam Back exam: Present: normal inspection - Neurological Exam Neurological exam: Present: alert, oriented X3 - Psychiatric Psychiatric exam: Present: normal affect, normal mood - Skin Skin exam: Present: warm, dry, normal color, other (2cm abscess to L inner thigh , fluctuant). Absent: rash ED Course Vital Signs 09/27/16 09/27/16 00:21 14:47 Temperature 99.2 F Pulse Rate 94 H 87 Respiratory 18 18 Rate Blood Pressure 146/94 Blood Pressure 126/87 [Left] O2 Sat by Pulse 99 99 Oximetry - Reevaluation(s) Reevaluation #1: 09/27/16 13:29 Pt re-evaluated, repeat FSG is 450, ordered insulin 10units IVP I&D of L thigh abscess - I & D Left Medial Thigh Type of Procedure: Simple Blade Size: 11 I & D Procedure: betadine prep Progress: Lidocaine with epi 3ccs infiltrated Wound with purulent drainage No packing needed ED Medical Decision Making - Lab Data Result diagrams: 09/27/16 00:32 09/27/16 00:32 - Medical Decision Making Patient's FSG improved with 10 units of insulin from 450 to 272. Pt aware to follow up with her PMD to have her DM meds adjusted with steroid use. Critical care attestation.: If time is entered above; I have spent that time in minutes in the direct care of this critically ill patient, excluding procedure time. ED Disposition Clinical Impression: Hyperglycemia due to type 2 diabetes mellitus, Abscess Disposition: TO HOME OR SELFCARE Is pt being admited?: No Condition: Stable Instructions: Diabetes Mellitus Type 2 in Adults (ED), Abscess (ED) Additional Instructions: PLEASE FOLLOW UP WITH YOUR PMD TO HAVE YOUR DIABETIC MEDICATIONS ADJUSTED NOW THAT YOU ARE ON PREDNISONE FOR YOUR LUPUS Prescriptions: Sulfamethoxazole/Trimethoprim [Bactrim DS TAB] 1 each PO BID #14 tablet Referrals: PRIMARY CARE, [Primary Care Provider] - 3-5 Days
[2016-09-27] MEDS ORDERED: XYLOCAINE 2%/EPI 1:100,000 INFILTRATI ONE ×2 (12:58→14:24)
[2016-09-27] MEDS ORDERED: NORCO 5/325 PO ONE (13:55)
[2016-09-27 14:48] VITALS: BP 126/87
== END 2016-09-27 15:28 | disposition home or self-care (01) ==
LOC: ED 22:43
DX: E11.65 Type 2 diabetes mellitus with hyperglycemia (principal); L02.416 Cutaneous abscess of left lower limb; F31.9 Bipolar disorder, unspecified
CPT/HCPCS: 10060; 36415; 80048; 81001; 82805; 82962; 84703; 85025; 96361; 96374; 99284; J7030; J1815

== ENCOUNTER 2016-10-01 23:58 | Emergency (ER) | payer MEDICARE ==
[2016-10-02 01:21] LABS: Bilirubin,Urine NEG (Negative); Blood,Urine NEG (Negative); Ketones,Urine NEG (Negative); Leukocyte Esterase,Urine NEG (Negative); Nitrite,Urine NEG (Negative); Protein,Urine <15 mg/dL mg/dL (Negative); Urobilinogen,Urine < 2.0 mg/dL (<2.0); WBC,Urine < 1.0 /HPF (0.0-6.0)
[2016-10-02 01:24] LABS: Anion Gap 17 mmol/L; BUN/Creatinine Ratio 12.85; Blood Urea Nitrogen 9 mg/dL (7-17); Calcium 9.1 mg/dL (8.4-10.2); Carbon Dioxide 25 mmol/L (22-30); Chloride 99.3 mmol/L (98-107); Glucose 195 mg/dL (65-100); Potassium 4.4 mmol/L (3.6-5.0); Sodium 137 mmol/L (137-145)
[2016-10-02 01:29] LABS: Hematocrit 41.3 % (30.3-42.9); Mean Corpuscular HGB Conc 32 % (30-34); Mean Corpuscular Hemoglobin 26 pg (28-32); Mean Corpuscular Volume 83 fl (79-97); Platelet Count 206 K/mm3 (140-440); Red Cell Distribution Width 17.7 % (13.2-15.2); White Blood Count 11.8 K/mm3 (4.5-11.0)
[2016-10-02 01:32] LABS: Basophils % (Auto) 0.6 % (0.0-1.8); Diff Status Complete; Eosinophils % (Auto) 0.6 % (0.0-4.3)
[2016-10-02] MEDS ORDERED: NACL 0.9% 1000 ML 1,000 ML IV ONE (04:26)
--- NOTE | 2016-10-02 04:28 | Emergency Department Report ---
ED General Adult HPI - General Chief complaint: Hyperglycemia Stated complaint: UNCONTOLLED BLOOD SUGAR Time Seen by Provider: 10/02/16 04:19 Source: patient Mode of arrival: Ambulatory Limitations: No Limitations - History of Present Illness Initial comments: Pt is a 36 yr old female with a h/o DM who presents from [facility] for elevated blood sugar levels. [facility] will no adjust her insulin for her. Pt sent to the ED for evaluation. Pt has no complaints. Pt reports she takes humulin 10 units with each meal and lantus 25units before bed. No changes to meds. Otherwise no fevers, chills, [place], dizziness, NVD, SOB, CP, Abd pain, extremity pain/swelling, travel, or job. Severity scale (0 -10): 10 - Related Data Home Medications Medication Instructions Recorded Confirmed Last Taken Duloxetine HCl [Cymbalta] 90 mg PO DAILY 09/22/16 09/23/16 Unknown Pregabalin [Lyrica] 300 mg PO BID 09/22/16 09/23/16 Unknown Trazodone HCl 150 mg PO QHS 09/22/16 09/23/16 Unknown Ziprasidone HCl [Geodon] 80 mg PO BID 09/22/16 09/23/16 Unknown predniSONE [Deltasone] 10 mg PO BID 09/22/16 09/23/16 Unknown Previous Rx's Medication Instructions Recorded Last Taken Type Insulin Detemir [Levemir VIAL] 25 unit SQ QHS #1 vial 09/23/16 Unknown Rx Insulin Aspart [NovoLOG Flexpen] 1 dose SQ AC PRN #1 pen 09/24/16 Unknown Rx Insulin Glargine [Lantus VIAL] 25 unit SUB-Q QHS 30 Days 09/24/16 Unknown Rx Nicotine [Habitrol] 21 mg TD QDAY #30 patch 09/24/16 Unknown Rx Sulfamethoxazole/Trimethoprim 1 each PO BID #14 tablet 09/27/16 Unknown Rx [Bactrim DS TAB] Allergies Allergy/AdvReac Type Severity Reaction Status Date / Time egg Allergy Hives Verified 07/02/16 02:56 tramadol HCl [From Ultram] Allergy Hives Verified 07/02/16 02:56 vancomycin Allergy Hives Verified 07/02/16 02:56 ED Review of Systems ROS: Stated complaint: UNCONTOLLED BLOOD SUGAR Other details as noted in HPI Comment: All other systems reviewed and negative ED Past Medical Hx - Past Medical History Previous Medical History?: Yes Hx Diabetes: Yes Hx Sickle Cell Disease: No Hx Psychiatric Treatment: Yes (BIPOLAR Boderline personality) Additional medical history: LUPUS, hidradenitis - Surgical History Past Surgical History?: Yes Additional Surgical History: Breast reduction bilateral,excisional surg. for abscess - Social History Smoking Status: Light Tobacco Smoker Substance Use Type: Marijuana, Other - Medications Home Medications: Home Medications Medication Instructions Recorded Confirmed Last Taken Type Duloxetine HCl [Cymbalta] 90 mg PO DAILY 09/22/16 09/23/16 Unknown History Pregabalin [Lyrica] 300 mg PO BID 09/22/16 09/23/16 Unknown History Trazodone HCl 150 mg PO QHS 09/22/16 09/23/16 Unknown History Ziprasidone HCl [Geodon] 80 mg PO BID 09/22/16 09/23/16 Unknown History predniSONE [Deltasone] 10 mg PO BID 09/22/16 09/23/16 Unknown History Insulin Detemir [Levemir VIAL] 25 unit SQ QHS #1 vial 09/23/16 Unknown Rx Insulin Aspart [NovoLOG Flexpen] 1 dose SQ AC PRN #1 pen 09/24/16 Unknown Rx Insulin Glargine [Lantus VIAL] 25 unit SUB-Q QHS 30 Days 09/24/16 Unknown Rx Nicotine [Habitrol] 21 mg TD QDAY #30 patch 09/24/16 Unknown Rx Sulfamethoxazole/Trimethoprim 1 each PO BID #14 tablet 09/27/16 Unknown Rx [Bactrim DS TAB] ED Physical Exam - General Limitations: No Limitations General appearance: alert, in no apparent distress - Head Head exam: Present: atraumatic, normocephalic - Eye Eye exam: Present: normal appearance - ENT ENT exam: Present: mucous membranes moist - Neck Neck exam: Present: normal inspection - Respiratory Respiratory exam: Present: normal lung sounds bilaterally. Absent: respiratory distress - Cardiovascular Cardiovascular Exam: Present: regular rate, normal rhythm. Absent: systolic murmur, diastolic murmur, rubs, gallop - GI/Abdominal GI/Abdominal exam: Present: soft, normal bowel sounds - Extremities Exam Extremities exam: Present: normal inspection - Back Exam Back exam: Present: normal inspection - Neurological Exam Neurological exam: Present: alert, oriented X3 - Psychiatric Psychiatric exam: Present: normal affect, normal mood - Skin Skin exam: Present: warm, dry, intact, normal color. Absent: rash ED Course Vital Signs 10/02/16 10/02/16 10/02/16 00:21 03:02 03:10 Temperature 98.5 F Pulse Rate 85 Respiratory 20 Rate Blood Pressure 108/66 Blood Pressure 128/75 [Right] O2 Sat by Pulse 99 100 98 Oximetry 10/02/16 10/02/16 10/02/16 03:22 03:50 04:00 Temperature 98.5 F Pulse Rate 80 Respiratory 18 Rate Blood Pressure 94/61 103/58 Blood Pressure 108/66 [Right] O2 Sat by Pulse 100 97 96 Oximetry 10/02/16 04:10 Temperature Pulse Rate Respiratory Rate Blood Pressure 103/58 Blood Pressure [Right] O2 Sat by Pulse 96 Oximetry ED Medical Decision Making - Lab Data Result diagrams: 10/02/16 00:39 10/02/16 00:39 - Medical Decision Making Pt's blood glucose is 195 Pt is not in DKA I will not adjust her insulin requirements Critical care attestation.: If time is entered above; I have spent that time in minutes in the direct care of this critically ill patient, excluding procedure time. ED Disposition Clinical Impression: Hyperglycemia due to type 2 diabetes mellitus Disposition: - TO HOME OR SELFCARE Is pt being admited?: No Condition: Stable Instructions: Diabetes Mellitus Type 2 in Adults (ED) Referrals: PRIMARY CARE, [Primary Care Provider] - 3-5 Days
[2016-10-02 04:59] VITALS: BP 111/51
== END 2016-10-02 04:59 | disposition home or self-care (01) ==
LOC: ED 23:58
DX: E11.65 Type 2 diabetes mellitus with hyperglycemia (principal); F31.9 Bipolar disorder, unspecified; M32.9 Systemic lupus erythematosus, unspecified; F12.90 Cannabis use, unspecified, uncomplicated; F17.210 Nicotine dependence, cigarettes, uncomplicated; Z79.4 Long term (current) use of insulin; Z79.82 Long term (current) use of aspirin; Z88.1 Allergy status to other antibiotic agents; Z91.018 Allergy to other foods; Z88.8 Allergy status to other drugs, medicaments and biological substances
CPT/HCPCS: 36415; 80048; 81001; 82805; 82962; 84703; 85025; 99284

== ENCOUNTER 2016-10-05 21:43 | Emergency (ER) | payer MEDICARE ==
[2016-10-06] MEDS ORDERED: XYLOCAINE 1% MPF 5 mL INFILTRATI ONE
[2016-10-06] MEDS ORDERED: DILAUDID IM ONE
[2016-10-06] MEDS ORDERED: ROCEPHIN IM ONE
[2016-10-06] MEDS ORDERED: ZOFRAN ODT PO ONE
--- NOTE | 2016-10-06 | Emergency Department Report ---
- General Chief complaint: Urogenital-Female Stated complaint: VAGINAL ABSCESS Time Seen by Provider: 10/05/16 23:05 Source: patient Mode of arrival: Ambulatory Limitations: No Limitations - History of Present Illness Initial comments: Patient reports that she has history of tinnitus and reports that she has a flareup right inner thigh beside labia. She is followed by multiple spindle router operator at [facility] and primary care physician is at [place]. reports multiple surgeries to site. She denies any fever or chills. Denies any nausea or vomiting. The fever started 2 days ago and she is having pain 8/ 10 over-the- counter medication does not help. Pain is throbbing and aching. Denies any burning frequency or urgency. Denies any vaginal bleeding or discharge. Denies any abdominal or back pain. MD complaint: abscess/boil Onset/Timin -: days(s) Tetanus Up to Date: yes Location: buttocks, genitals, LLE (RT and lt inner thigh), RLE Severity: severe Severity scale (0 -10): 8 Quality: aching, other (Throbbing) Consistency: constant Improves with: none Worsens with: none Context: other (Chronic ) Associated symptoms: denies other symptoms Treatments Prior to Arrival: OTC topical medication, other (OTC pain meds) - Related Data Home Medications Medication Instructions Recorded Confirmed Last Taken Duloxetine HCl [Cymbalta] 90 mg PO DAILY 09/22/16 09/23/16 Unknown Pregabalin [Lyrica] 300 mg PO BID 09/22/16 09/23/16 Unknown Trazodone HCl 150 mg PO QHS 09/22/16 09/23/16 Unknown Ziprasidone HCl [Geodon] 80 mg PO BID 09/22/16 09/23/16 Unknown predniSONE [Deltasone] 10 mg PO BID 09/22/16 09/23/16 Unknown Previous Rx's Medication Instructions Recorded Last Taken Type Insulin Detemir [Levemir VIAL] 25 unit SQ QHS #1 vial 09/23/16 Unknown Rx Insulin Aspart [NovoLOG Flexpen] 1 dose SQ AC PRN #1 pen 09/24/16 Unknown Rx Insulin Glargine [Lantus VIAL] 25 unit SUB-Q QHS 30 Days 09/24/16 Unknown Rx Nicotine [Habitrol] 21 mg TD QDAY #30 patch 09/24/16 Unknown Rx Cephalexin [Keflex] 500 mg PO Q8HR #30 cap 10/06/16 Unknown Rx HYDROcodone/APAP 5-325 [[place] 1 each PO Q6HR PRN #12 tablet 10/06/16 Unknown Rx 5/325] Sulfamethoxazole/Trimethoprim 1 each PO BID #20 tablet 10/06/16 Unknown Rx [Bactrim DS TAB] Allergies Allergy/AdvReac Type Severity Reaction Status Date / Time egg Allergy Hives Verified 07/02/16 02:56 tramadol HCl [From Ultram] Allergy Hives Verified 07/02/16 02:56 vancomycin Allergy Hives Verified 07/02/16 02:56 Abscess Boil HPI - HPI Chief Complaint: Urogenital-Female Stated Complaint: VAGINAL ABSCESS Time Seen by Provider: 10/05/16 23:05 Home Medications: Home Medications Medication Instructions Recorded Confirmed Last Taken Duloxetine HCl [Cymbalta] 90 mg PO DAILY 09/22/16 09/23/16 Unknown Pregabalin [Lyrica] 300 mg PO BID 09/22/16 09/23/16 Unknown Trazodone HCl 150 mg PO QHS 09/22/16 09/23/16 Unknown Ziprasidone HCl [Geodon] 80 mg PO BID 09/22/16 09/23/16 Unknown predniSONE [Deltasone] 10 mg PO BID 09/22/16 09/23/16 Unknown Previous Rx's Medication Instructions Recorded Last Taken Type Insulin Detemir [Levemir VIAL] 25 unit SQ QHS #1 vial 09/23/16 Unknown Rx Insulin Aspart [NovoLOG Flexpen] 1 dose SQ AC PRN #1 pen 09/24/16 Unknown Rx Insulin Glargine [Lantus VIAL] 25 unit SUB-Q QHS 30 Days 09/24/16 Unknown Rx Nicotine [Habitrol] 21 mg TD QDAY #30 patch 09/24/16 Unknown Rx Cephalexin [Keflex] 500 mg PO Q8HR #30 cap 10/06/16 Unknown Rx HYDROcodone/APAP 5-325 [[place] 1 each PO Q6HR PRN #12 tablet 10/06/16 Unknown Rx 5/325] Sulfamethoxazole/Trimethoprim 1 each PO BID #20 tablet 10/06/16 Unknown Rx [Bactrim DS TAB] Allergies/Adverse Reactions: Allergies Allergy/AdvReac Type Severity Reaction Status Date / Time egg Allergy Hives Verified 07/02/16 02:56 tramadol HCl [From Ultram] Allergy Hives Verified 07/02/16 02:56 vancomycin Allergy Hives Verified 07/02/16 02:56 ED Review of Systems ROS: Stated complaint: VAGINAL ABSCESS Other details as noted in HPI Comment: All other systems reviewed and negative Constitutional: denies: chills, fever Respiratory: no symptoms reported Cardiovascular: denies: chest pain, palpitations, edema, syncope Gastrointestinal: denies: abdominal pain, nausea, vomiting, diarrhea Genitourinary: denies: urgency, dysuria, frequency, hematuria, discharge Musculoskeletal: denies: back pain, joint swelling, arthralgia, myalgia Skin: other (abscess) Neurological: denies: headache, weakness, numbness, paresthesias, confusion, abnormal gait, vertigo ED Past Medical Hx - Past Medical History Previous Medical History?: Yes Hx Diabetes: Yes Hx Sickle Cell Disease: No Hx Psychiatric Treatment: Yes (BIPOLAR Boderline personality) Additional medical history: LUPUS, hidradenitis - Surgical History Past Surgical History?: Yes Additional Surgical History: Breast reduction bilateral,excisional surg. for abscess - Family History Family history: hypertension - Social History Smoking Status: Current Every Day Smoker Substance Use Type: Marijuana - Medications Home Medications: Home Medications Medication Instructions Recorded Confirmed Last Taken Type Duloxetine HCl [Cymbalta] 90 mg PO DAILY 09/22/16 09/23/16 Unknown History Pregabalin [Lyrica] 300 mg PO BID 09/22/16 09/23/16 Unknown History Trazodone HCl 150 mg PO QHS 09/22/16 09/23/16 Unknown History Ziprasidone HCl [Geodon] 80 mg PO BID 09/22/16 09/23/16 Unknown History predniSONE [Deltasone] 10 mg PO BID 09/22/16 09/23/16 Unknown History Insulin Detemir [Levemir VIAL] 25 unit SQ QHS #1 vial 09/23/16 Unknown Rx Insulin Aspart [NovoLOG Flexpen] 1 dose SQ AC PRN #1 pen 09/24/16 Unknown Rx Insulin Glargine [Lantus VIAL] 25 unit SUB-Q QHS 30 Days 09/24/16 Unknown Rx Nicotine [Habitrol] 21 mg TD QDAY #30 patch 09/24/16 Unknown Rx Cephalexin [Keflex] 500 mg PO Q8HR #30 cap 10/06/16 Unknown Rx HYDROcodone/APAP 5-325 [[place] 1 each PO Q6HR PRN #12 tablet 10/06/16 Unknown Rx 5/325] Sulfamethoxazole/Trimethoprim 1 each PO BID #20 tablet 10/06/16 Unknown Rx [Bactrim DS TAB] ED Physical Exam - General Limitations: No Limitations General appearance: alert, in no apparent distress - Head Head exam: Present: atraumatic, normocephalic, normal inspection - Eye Eye exam: Present: normal appearance, PERRL, EOMI. Absent: periorbital swelling , periorbital tenderness Pupils: Present: normal accommodation - ENT ENT exam: Present: normal exam, normal orophraynx - Neck Neck exam: Present: normal inspection, full ROM. Absent: tenderness, lymphadenopathy - Respiratory Respiratory exam: Present: normal lung sounds bilaterally. Absent: respiratory distress, chest wall tenderness - Cardiovascular Cardiovascular Exam: Present: regular rate, normal rhythm, normal heart sounds - GI/Abdominal GI/Abdominal exam: Present: soft, normal bowel sounds. Absent: distended, tenderness, guarding, rebound, rigid - Extremities Exam Extremities exam: Present: normal inspection, full ROM, normal capillary refill. Absent: tenderness, pedal edema, joint swelling, calf tenderness - Back Exam Back exam: Present: normal inspection, full ROM. Absent: tenderness, CVA tenderness (R), CVA tenderness (L), muscle spasm, paraspinal tenderness, vertebral tenderness, rash noted - Neurological Exam Neurological exam: Present: alert, oriented X3, normal gait - Psychiatric Psychiatric exam: Present: normal affect, normal mood - Skin Skin exam: Present: dry, other (multiple areas of induration without fluctuance and tenderness, bilateral inner thigh vaginal area. Multiple surgical scars. Mild erythema to proximal inner thigh with induration and no fluctuance) - Expanded Skin Exam Expanded Type of lesion: Present: abscess Distribution of rash: other (samantha proximal inner thigh close to genitals) Description of rash: Present: tenderness, erythematous, swelling, indurated. Absent: vesicular, blisters, discharge, fluctuant ED Course Vital Signs 10/05/16 10/06/16 22:04 00:33 Temperature 98.2 F Pulse Rate 92 H 85 Respiratory 18 Rate Blood Pressure 137/85 Blood Pressure 141/91 [Left] O2 Sat by Pulse 100 98 Oximetry - Reevaluation(s) Reevaluation #1: 10/06/16 00:29 Patient given dilaudid 1mg im, zofran 8 mg ODT and rocephin 1 gm im in ED room without any adverse reaction. ED Medical Decision Making - Medical Decision Making ED Course : Patient with Hidradenitis . She has indurated areas to rt inner uper thigh close to vaginal area. No fluctuance to sites. Patient has multiple spindle router operator at [place] that is managing Hidradinitis. She had multiple surgeries in [place] past. Note healed scars. I discussed with patient that I will place her on bactrin DS and keflex for infection and [place] for pain but she will need to follow up with [employer] T[employer] Tender in 1-2 days for continued management. Patient is a Diabetic and BG stable. She reports blood sugar was 129 this evening. No signs of necrotizing fasciatis. Patient agrres with palns and will call her multiple spindle router operator to schedule Appointment. Patient given Rocephin 1 gm im, Zofran 8 mg po and dilaudid 1 mg im in ED without adverse reaction. Discharged home with prescription for Bactrim DS and keflex, [place]. Critical care attestation.: If time is entered above; I have spent that time in minutes in the direct care of this critically ill patient, excluding procedure time. ED Disposition Clinical Impression: Hidradenitis Cellulitis Qualifiers: Site of cellulitis: other site Qualified Code(s): L03.818 - Cellulitis of other sites Disposition: DC- TO HOME OR SELFCARE Is pt being admited?: No Does the pt Need Aspirin: No Condition: Stable Instructions: Cellulitis (ED) Additional Instructions: Please follow up with [employer] T[employer] Tender that is managing your Hidradenitis Take antibiotic as prescribed Sitz bath Increase fluid intake and keep affected area clean and clear. Prescriptions: Cephalexin [Keflex] 500 mg PO Q8HR #30 cap HYDROcodone/APAP 5-325 [[place] 5/325] 1 each PO Q6HR PRN #12 tablet PRN Reason: Pain Sulfamethoxazole/Trimethoprim [Bactrim DS TAB] 1 each PO BID #20 tablet Referrals: PRIMARY CARE, [Primary Care Provider] - 2-3 Days Your, [employer] T[employer] Tender [Other] - 10/08/16 Forms: Work/School Release Form(ED)
[2016-10-06] MEDS ORDERED: MARCAINE 0.5% INFILTRATI ONE (00:01)
[2016-10-06 00:34] VITALS: BP 141/91
== END 2016-10-06 00:56 | disposition home or self-care (01) ==
LOC: ED 21:43
DX: L73.2 Hidradenitis suppurativa (principal); L03.818 Cellulitis of other sites; E11.9 Type 2 diabetes mellitus without complications; F17.210 Nicotine dependence, cigarettes, uncomplicated; F31.9 Bipolar disorder, unspecified; F12.10 Cannabis abuse, uncomplicated; Z88.8 Allergy status to other drugs, medicaments and biological substances; Z88.1 Allergy status to other antibiotic agents; Z91.012 Allergy to eggs
CPT/HCPCS: 96372; 99282; J0696; J1170; Q0162

== ENCOUNTER 2016-10-07 23:49 | Emergency (ER) | payer MEDICARE ==
[2016-10-08 00:50] LABS: Hematocrit 36.4 % (30.3-42.9); Hemoglobin 11.6 gm/dl (10.1-14.3); Mean Corpuscular HGB Conc 32 % (30-34); Mean Corpuscular Volume 80 fl (79-97); Red Blood Count 4.56 M/mm3 (3.65-5.03); Red Cell Distribution Width 17.1 % (13.2-15.2); White Blood Count 16.8 K/mm3 (4.5-11.0)
[2016-10-08 00:52] LABS: Mean Corpuscular Hemoglobin 26 pg (28-32); Platelet Count 246 K/mm3 (140-440)
[2016-10-08 01:09] LABS: Alanine Aminotransferase 11 units/L (7-56); Albumin 3.4 g/dL (3.9-5); Albumin/Globulin Ratio 0.9 %; Alkaline Phosphatase 75 units/L (35-129); Anion Gap 18 mmol/L; Bilirubin,Total < 0.20 mg/dL (0.1-1.2); Blood Urea Nitrogen 14 mg/dL (7-17); Carbon Dioxide 23 mmol/L (22-30); Chloride 97.9 mmol/L (98-107); Glucose 158 mg/dL (65-100); Lipase 40 units/L (13-60); Sodium 135 mmol/L (137-145); Total Protein 7.3 g/dL (6.3-8.2)
[2016-10-08 02:43] LABS: Bilirubin,Urine NEG (Negative); Blood,Urine NEG (Negative); Ketones,Urine NEG (Negative); Leukocyte Esterase,Urine NEG (Negative); Mucus,Urine FEW /HPF; Nitrite,Urine NEG (Negative); Protein,Urine <15 mg/dL mg/dL (Negative); Urobilinogen,Urine < 2.0 mg/dL (<2.0)
[2016-10-08 03:41] LABS: Basophils % (Manual) 0 % (0.0-1.8); Blastocytes % (Manual) 0 %; Diff Status Complete; Eosinophils % (Manual) 0 % (0.0-4.3); Hypochromasia 1+
[2016-10-08 06:37] VITALS: BP 109/68
--- NOTE | 2016-10-08 08:54 | Ultrasound Report ---
Sonogram right upper quadrant: History: Right upper quadrant pain. Findings: Normal aorta. Fatty liver. Liver cyst measures 2.7 x 1.2 x 1.8 cm. No intrahepatic or extrahepatic there dilatation. Common bile duct diameter 5.2 mm. Gallbladder wall thickness 1.7 mm. No calculi in the gallbladder. Right kidney 10.4 x 5.7 x 5.6 cm. Minute echogenic focus at the right kidney suggestive of non-obstructive calculus. Cortical thickness 1.9 cm. No mass. No hydronephrosis. Pancreas normal. Impression: Fatty liver. Liver cyst. Nonobstructing calculus right kidney.
--- NOTE | 2016-10-11 13:45 | ED Elopement Review ---
ED Pt Elopement review - Results review Lab results: Laboratory Tests 10/08/16 10/08/16 10/08/16 00:24 00:24 00:24 WBC 16.8 H RBC 4.56 Hgb 11.6 Hct 36.4 MCV 80 MCH 26 L MCHC 32 RDW 17.1 H Plt Count 246 Lymph # Mixing Picker Tender Add Manual Diff Complete Total Counted 100 Seg Neuts % (Manual) 73.0 H Band Neutrophils % 0 Lymphocytes % (Manual) 22.0 Reactive Lymphs % (Man) 0 Monocytes % (Manual) 5.0 Eosinophils % (Manual) 0 Basophils % (Manual) 0 Metamyelocytes % 0 Myelocytes % 0 Promyelocytes % 0 Blast Cells % 0 Nucleated RBC % Not Reportable Seg Neutrophils # Man 12.3 H Band Neutrophils # 0.0 Lymphocytes # (Manual) 3.7 Abs React Lymphs (Man) 0.0 Monocytes # (Manual) 0.8 Eosinophils # (Manual) 0.0 Basophils # (Manual) 0.0 Metamyelocytes # 0.0 Myelocytes # 0.0 Promyelocytes # 0.0 Blast Cells # 0.0 WBC Morphology Not Reportable Hypersegmented Neuts Not Reportable Hyposegmented Neuts Not Reportable Hypogranular Neuts Not Reportable Smudge Cells Not Reportable Toxic Granulation Not Reportable Toxic Vacuolation Not Reportable Dohle Bodies Not Reportable Pelger-Huet Anomaly Not Reportable Hugo Rods Not Reportable Platelet Estimate Appears normal Clumped Platelets Not Reportable Plt Clumps, EDTA Not Reportable Large Platelets Not Reportable Giant Platelets Not Reportable Platelet Satelliting Not Reportable Plt Morphology Comment Not Reportable RBC Morphology Not Reportable Dimorphic RBCs Not Reportable Polychromasia Not Reportable Hypochromasia 1+ Poikilocytosis Not Reportable Anisocytosis Not Reportable Microcytosis Not Reportable Macrocytosis Not Reportable Spherocytes Not Reportable Pappenheimer Bodies Not Reportable Sickle Cells Not Reportable Target Cells Not Reportable Tear Drop Cells Not Reportable Ovalocytes Not Reportable Helmet Cells Not Reportable [place] Bodies Not Reportable Ellis Rings Not Reportable Chely Cells Not Reportable Bite Cells Not Reportable Crenated Cell Not Reportable Elliptocytes Not Reportable Acanthocytes (Spur) Not Reportable Rouleaux Not Reportable Hemoglobin C Crystals Not Reportable Schistocytes Not Reportable Malaria parasites Not Reportable Jean Bodies Not Reportable Hem Pathologist Commnt No Sodium 135 L Potassium 4.0 Chloride 97.9 L Carbon Dioxide 23 Anion Gap 18 BUN 14 Creatinine 0.8 Estimated GFR > 60 BUN/Creatinine Ratio 17.50 Glucose 158 H Calcium 9.0 Total Bilirubin < 0.20 AST 13 ALT 11 Alkaline Phosphatase 75 Total Protein 7.3 Albumin 3.4 L Albumin/Globulin Ratio 0.9 Lipase 40 HCG, Qual Negative Urine Color Urine Turbidity Urine pH Ur Specific [place] Urine Protein Urine Glucose (UA) Urine Ketones Urine Blood Urine Nitrite Urine Bilirubin Urine Urobilinogen Ur Leukocyte Esterase Urine WBC (Auto) Urine RBC (Auto) U Epithel Cells (Auto) Urine Mucus 10/08/16 01:45 WBC RBC Hgb Hct MCV MCH MCHC RDW Plt Count Lymph # Add Manual Diff Total Counted Seg Neuts % (Manual) Band Neutrophils % Lymphocytes % (Manual) Reactive Lymphs % (Man) Monocytes % (Manual) Eosinophils % (Manual) Basophils % (Manual) Metamyelocytes % Myelocytes % Promyelocytes % Blast Cells % Nucleated RBC % Seg Neutrophils # Man Band Neutrophils # Lymphocytes # (Manual) Abs React Lymphs (Man) Monocytes # (Manual) Eosinophils # (Manual) Basophils # (Manual) Metamyelocytes # Myelocytes # Promyelocytes # Blast Cells # WBC Morphology Hypersegmented Neuts Hyposegmented Neuts Hypogranular Neuts Smudge Cells Toxic Granulation Toxic Vacuolation Dohle Bodies Pelger-Huet Anomaly Hugo Rods Platelet Estimate Clumped Platelets Plt Clumps, EDTA Large Platelets Giant Platelets Platelet Satelliting Plt Morphology Comment RBC Morphology Dimorphic RBCs Polychromasia Hypochromasia Poikilocytosis Anisocytosis Microcytosis Macrocytosis Spherocytes Pappenheimer Bodies Sickle Cells Target Cells Tear Drop Cells Ovalocytes Helmet Cells Cook-[place]arding[place] Bodies Ellis Rings [place] Cells Bite Cells Crenated Cell Elliptocytes Acanthocytes (Spur) Rouleaux Hemoglobin C Crystals Schistocytes Malaria parasites Jean Bodies Hem Pathologist Commnt Sodium Potassium Chloride Carbon Dioxide Anion Gap BUN Creatinine Estimated GFR BUN/Creatinine Ratio Glucose Calcium Total Bilirubin AST ALT Alkaline Phosphatase Total Protein Albumin Albumin/Globulin Ratio Lipase HCG, Qual Urine Color Straw Urine Turbidity Clear Urine pH 6.0 Ur Specific [place] 1.012 Urine Protein <15 mg/dl Urine Glucose (UA) Neg Urine Ketones Neg Urine Blood Neg Urine Nitrite Neg Urine Bilirubin Neg Urine Urobilinogen < 2.0 Ur Leukocyte Esterase Neg Urine WBC (Auto) 1.0 Urine RBC (Auto) 1.0 U Epithel Cells (Auto) 2.0 Urine Mucus Few - Call Back decision Pt Call Back Decision: No action required
== END 2016-10-08 14:00 | disposition left against medical advice (07) ==
LOC: ED 23:49
DX: R10.11 Right upper quadrant pain (principal); R11.2 Nausea with vomiting, unspecified; F31.9 Bipolar disorder, unspecified; E11.9 Type 2 diabetes mellitus without complications; M32.9 Systemic lupus erythematosus, unspecified; F17.200 Nicotine dependence, unspecified, uncomplicated; F12.90 Cannabis use, unspecified, uncomplicated; Z88.1 Allergy status to other antibiotic agents; Z91.012 Allergy to eggs; Z53.21 Procedure and treatment not carried out due to patient leaving prior to being seen by health care provider
CPT/HCPCS: 36415; 76705; 80053; 81001; 83690; 84703; 85007; 85025

== ENCOUNTER 2017-03-05 20:32 | Emergency (ER) | payer MEDICARE ==
[2017-03-06] MEDS ORDERED: NACL 0.9% 1000 ML 1,000 ML IV ONE (00:55)
[2017-03-06] MEDS ORDERED: XYLOCAINE 1% MPF 5 mL INFILTRATI ONE (01:23)
[2017-03-06] MEDS ORDERED: TORADOL IM ONE (01:23)
[2017-03-06] MEDS ORDERED: ROCEPHIN IM ONE (01:23)
--- NOTE | 2017-03-06 01:28 | Emergency Department Report ---
- General Chief complaint: Skin/Abscess/Foreign Body Stated complaint: ABCESS, FEVER Time Seen by Provider: 03/06/17 01:01 Source: patient Mode of arrival: Ambulatory Limitations: No Limitations - History of Present Illness Initial comments: Patient is a 37 years old female history of diabetes, frequent suppurative hydradenitis, presented today with left thigh skin lesion for 4 days, patient denied any nausea vomiting. She reported a low-grade fever. He stated her blood sugar is well controlled with Levemir. MD complaint: abscess/boil -: days(s) Tetanus Up to Date: yes Location: LLE Severity: moderate Severity scale (0 -10): 4 Consistency: constant - Related Data Home Medications Medication Instructions Recorded Confirmed Last Taken Duloxetine HCl [Cymbalta] 90 mg PO DAILY 09/22/16 09/23/16 Unknown Pregabalin [Lyrica] 300 mg PO BID 09/22/16 09/23/16 Unknown Trazodone HCl 150 mg PO QHS 09/22/16 09/23/16 Unknown Ziprasidone HCl [Geodon] 80 mg PO BID 09/22/16 09/23/16 Unknown predniSONE [Deltasone] 10 mg PO BID 09/22/16 09/23/16 Unknown Previous Rx's Medication Instructions Recorded Last Taken Type Insulin Detemir [Levemir VIAL] 25 unit SQ QHS #1 vial 09/23/16 Unknown Rx Insulin Aspart [NovoLOG Flexpen] 1 dose SQ AC PRN #1 pen 09/24/16 Unknown Rx Insulin Glargine [Lantus VIAL] 25 unit SUB-Q QHS 30 Days units 09/24/16 Unknown Rx Nicotine [Habitrol] 21 mg TD QDAY #30 patch 09/24/16 Unknown Rx Cephalexin [Keflex] 500 mg PO Q8HR #30 cap 10/06/16 Unknown Rx HYDROcodone/APAP 5-325 [[place] 1 each PO Q6HR PRN #12 tablet 10/06/16 Unknown Rx 5/325] Sulfamethoxazole/Trimethoprim 1 each PO BID #20 tablet 10/06/16 Unknown Rx [Bactrim DS TAB] Ketorolac [Toradol] 10 mg PO Q6H PRN #20 tablet 03/06/17 Unknown Rx Ondansetron [Zofran Odt] 4 mg PO Q8HR PRN #14 tab.rapdis 03/06/17 Unknown Rx Sulfamethoxazole/Trimethoprim 1 each PO BID #20 tablet 03/06/17 Unknown Rx [Bactrim DS TAB] Allergies Allergy/AdvReac Type Severity Reaction Status Date / Time egg Allergy Hives Verified 03/05/17 20:38 tramadol HCl [From Ultram] Allergy Hives Verified 03/05/17 20:38 vancomycin Allergy Hives Verified 03/05/17 20:38 Abscess Boil HPI - HPI Chief Complaint: Skin/Abscess/Foreign Body Stated Complaint: ABCESS, FEVER Time Seen by Provider: 03/06/17 01:01 Home Medications: Home Medications Medication Instructions Recorded Confirmed Last Taken Duloxetine HCl [Cymbalta] 90 mg PO DAILY 09/22/16 09/23/16 Unknown Pregabalin [Lyrica] 300 mg PO BID 09/22/16 09/23/16 Unknown Trazodone HCl 150 mg PO QHS 09/22/16 09/23/16 Unknown Ziprasidone HCl [Geodon] 80 mg PO BID 09/22/16 09/23/16 Unknown predniSONE [Deltasone] 10 mg PO BID 09/22/16 09/23/16 Unknown Previous Rx's Medication Instructions Recorded Last Taken Type Insulin Detemir [Levemir VIAL] 25 unit SQ QHS #1 vial 09/23/16 Unknown Rx Insulin Aspart [NovoLOG Flexpen] 1 dose SQ AC PRN #1 pen 09/24/16 Unknown Rx Insulin Glargine [Lantus VIAL] 25 unit SUB-Q QHS 30 Days units 09/24/16 Unknown Rx Nicotine [Habitrol] 21 mg TD QDAY #30 patch 09/24/16 Unknown Rx Cephalexin [Keflex] 500 mg PO Q8HR #30 cap 10/06/16 Unknown Rx HYDROcodone/APAP 5-325 [[place] 1 each PO Q6HR PRN #12 tablet 10/06/16 Unknown Rx 5/325] Sulfamethoxazole/Trimethoprim 1 each PO BID #20 tablet 10/06/16 Unknown Rx [Bactrim DS TAB] Ketorolac [Toradol] 10 mg PO Q6H PRN #20 tablet 03/06/17 Unknown Rx Ondansetron [Zofran Odt] 4 mg PO Q8HR PRN #14 tab.rapdis 03/06/17 Unknown Rx Sulfamethoxazole/Trimethoprim 1 each PO BID #20 tablet 03/06/17 Unknown Rx [Bactrim DS TAB] Allergies/Adverse Reactions: Allergies Allergy/AdvReac Type Severity Reaction Status Date / Time egg Allergy Hives Verified 03/05/17 20:38 tramadol HCl [From Ultram] Allergy Hives Verified 03/05/17 20:38 vancomycin Allergy Hives Verified 03/05/17 20:38 ED Review of Systems ROS: Stated complaint: ABCESS, FEVER Other details as noted in HPI Comment: All other systems reviewed and negative Constitutional: fever. denies: chills Respiratory: denies: cough, shortness of breath, SOB with exertion Cardiovascular: denies: chest pain, palpitations, dyspnea on exertion, orthopnea Gastrointestinal: denies: abdominal pain, nausea, vomiting Skin: lesions Neurological: denies: headache, weakness, numbness, paresthesias ED Past Medical Hx - Past Medical History Hx Diabetes: Yes Hx Sickle Cell Disease: No Hx Psychiatric Treatment: Yes (BIPOLAR Boderline personality) Additional medical history: LUPUS, hidradenitis - Surgical History Additional Surgical History: Breast reduction bilateral,excisional surg. for abscess - Social History Smoking Status: Current Every Day Smoker Substance Use Type: None - Medications Home Medications: Home Medications Medication Instructions Recorded Confirmed Last Taken Type Duloxetine HCl [Cymbalta] 90 mg PO DAILY 09/22/16 09/23/16 Unknown History Pregabalin [Lyrica] 300 mg PO BID 09/22/16 09/23/16 Unknown History Trazodone HCl 150 mg PO QHS 09/22/16 09/23/16 Unknown History Ziprasidone HCl [Geodon] 80 mg PO BID 09/22/16 09/23/16 Unknown History predniSONE [Deltasone] 10 mg PO BID 09/22/16 09/23/16 Unknown History Insulin Detemir [Levemir VIAL] 25 unit SQ QHS #1 vial 09/23/16 Unknown Rx Insulin Aspart [NovoLOG Flexpen] 1 dose SQ AC PRN #1 pen 09/24/16 Unknown Rx Insulin Glargine [Lantus VIAL] 25 unit SUB-Q QHS 30 Days units 09/24/16 Unknown Rx Nicotine [Habitrol] 21 mg TD QDAY #30 patch 09/24/16 Unknown Rx Cephalexin [Keflex] 500 mg PO Q8HR #30 cap 10/06/16 Unknown Rx HYDROcodone/APAP 5-325 [[place] 1 each PO Q6HR PRN #12 tablet 10/06/16 Unknown Rx 5/325] Sulfamethoxazole/Trimethoprim 1 each PO BID #20 tablet 10/06/16 Unknown Rx [Bactrim DS TAB] Ketorolac [Toradol] 10 mg PO Q6H PRN #20 tablet 03/06/17 Unknown Rx Ondansetron [Zofran Odt] 4 mg PO Q8HR PRN #14 tab.rapdis 03/06/17 Unknown Rx Sulfamethoxazole/Trimethoprim 1 each PO BID #20 tablet 03/06/17 Unknown Rx [Bactrim DS TAB] ED Physical Exam - General Limitations: No Limitations General appearance: alert, in no apparent distress - Head Head exam: Present: atraumatic, normocephalic - Neck Neck exam: Present: normal inspection - Respiratory Respiratory exam: Present: normal lung sounds bilaterally - Cardiovascular Cardiovascular Exam: Present: tachycardia - GI/Abdominal GI/Abdominal exam: Present: soft. Absent: tenderness, guarding - Extremities Exam Extremities exam: Present: other (left thigh with 3 3 cm abscess, non- fluctuant with surrounding cellulitis.) - Back Exam Back exam: Present: normal inspection. Absent: CVA tenderness (R), CVA tenderness (L), muscle spasm - Neurological Exam Neurological exam: Present: alert, oriented X3, CN II-XII intact, normal gait - Skin Skin exam: Present: warm, intact, normal color ED Course Vital Signs 03/05/17 03/05/17 03/06/17 20:36 20:38 01:25 Temperature 100.8 F H 100.8 F H 99.2 F Pulse Rate 127 H 131 H 99 H Respiratory 18 18 16 Rate Blood Pressure 130/83 130/83 Blood Pressure 127/91 [Right] O2 Sat by Pulse 96 96 100 Oximetry 03/06/17 03/06/17 01:26 03:07 Temperature Pulse Rate 91 H Respiratory 16 Rate Blood Pressure Blood Pressure 115/65 [Right] O2 Sat by Pulse 100 Oximetry - Reevaluation(s) Reevaluation #2: 03/06/17 02:44 Patient stated that she is feeling much better. Patient received 1 g of Rocephin in the ER. Patient advised to follow-up with HER primary care physician for further management ED Medical Decision Making - Lab Data Result diagrams: 03/06/17 01:18 03/06/17 01:18 Critical care attestation.: If time is entered above; I have spent that time in minutes in the direct care of this critically ill patient, excluding procedure time. ED Disposition Clinical Impression: Abscess of left thigh Disposition: DC-01 TO HOME OR SELFCARE Is pt being admited?: No Condition: Stable Instructions: Abscess (ED) Prescriptions: Ketorolac [Toradol] 10 mg PO Q6H PRN #20 tablet PRN Reason: Pain Ondansetron [Zofran Odt] 4 mg PO Q8HR PRN #14 tab.rapdis PRN Reason: Nausea And Vomiting Sulfamethoxazole/Trimethoprim [Bactrim DS TAB] 1 each PO BID #20 tablet Referrals: PRIMARY CARE, [Primary Care Provider] - 3-5 Days
[2017-03-06 01:42] LABS: Basophils % (Auto) 0.4 % (0.0-1.8); Eosinophils % (Auto) 1.5 % (0.0-4.3); Hematocrit 32.6 % (30.3-42.9); Hemoglobin 10.6 gm/dl (10.1-14.3); Mean Corpuscular HGB Conc 32 % (30-34); Mean Corpuscular Volume 79 fl (79-97); Platelet Count 294 K/mm3 (140-440); Red Blood Count 4.12 M/mm3 (3.65-5.03); Red Cell Distribution Width 16.1 % (13.2-15.2); White Blood Count 12.2 K/mm3 (4.5-11.0)
[2017-03-06 01:45] LABS: Mean Corpuscular Hemoglobin 26 pg (28-32)
[2017-03-06 02:00] LABS: Alanine Aminotransferase 14 units/L (7-56); Albumin 3.7 g/dL (3.9-5); Albumin/Globulin Ratio 1.3 %; Alkaline Phosphatase 91 units/L (35-129); Anion Gap 18 mmol/L; BUN/Creatinine Ratio 10; Blood Urea Nitrogen 6 mg/dL (7-17); Carbon Dioxide 26 mmol/L (22-30); Chloride 97.9 mmol/L (98-107); Glucose 111 mg/dL (65-100); Potassium 4.7 mmol/L (3.6-5.0); Sodium 137 mmol/L (137-145); Total Protein 6.6 g/dL (6.3-8.2)
[2017-03-06 03:08] VITALS: BP 115/65
== END 2017-03-06 03:08 | disposition home or self-care (01) ==
LOC: ED 20:32
DX: L02.416 Cutaneous abscess of left lower limb (principal); E11.9 Type 2 diabetes mellitus without complications; F17.200 Nicotine dependence, unspecified, uncomplicated; Z79.4 Long term (current) use of insulin; Z88.6 Allergy status to analgesic agent; Z88.1 Allergy status to other antibiotic agents; Z91.012 Allergy to eggs
CPT/HCPCS: 36415; 80053; 82962; 85025; 96372; 99283; J0696; J1885

== ENCOUNTER 2017-03-11 13:34 | Emergency (ER) | payer MEDICARE ==
[2017-03-11 14:32] LABS: Anion Gap 21 mmol/L; BUN/Creatinine Ratio 9; Blood Urea Nitrogen 6 mg/dL (7-17); Carbon Dioxide 22 mmol/L (22-30); Chloride 96.2 mmol/L (98-107); Glucose 473 mg/dL (65-100); Potassium 4.4 mmol/L (3.6-5.0); Sodium 135 mmol/L (137-145)
[2017-03-11 14:37] LABS: Basophils % (Auto) 0.3 % (0.0-1.8); Hematocrit 36.5 % (30.3-42.9); Hemoglobin 11.6 gm/dl (10.1-14.3); Mean Corpuscular HGB Conc 32 % (30-34); Mean Corpuscular Volume 80 fl (79-97); Platelet Count 393 K/mm3 (140-440); Red Blood Count 4.57 M/mm3 (3.65-5.03); Red Cell Distribution Width 15.9 % (13.2-15.2); White Blood Count 9.8 K/mm3 (4.5-11.0)
[2017-03-11 14:39] LABS: Mean Corpuscular Hemoglobin 25 pg (28-32)
[2017-03-11 15:14] LABS: Bilirubin,Urine NEG (Negative); Blood,Urine NEG (Negative); Ketones,Urine NEG (Negative); Leukocyte Esterase,Urine TR (Negative); Nitrite,Urine NEG (Negative); Protein,Urine <15 mg/dL mg/dL (Negative); Urobilinogen,Urine < 2.0 mg/dL (<2.0)
[2017-03-11] MEDS ORDERED: NACL 0.9% 1000 ML 1,000 ML IV ONE ×2 (23:37→23:40)
--- NOTE | 2017-03-11 23:50 | Emergency Department Report ---
ED General Adult HPI - General Chief complaint: Hyperglycemia Stated complaint: BLOOD SUGAR HIGH Time Seen by Provider: 03/11/17 23:36 Source: patient Mode of arrival: Ambulatory Limitations: No Limitations - History of Present Illness Initial comments: 37 YO FEMALE TYPE II DIABETIC HER WITH C/OINABILITY TO LOWER BLOOD SUGAR. PT NORMALLY TAKES INSULIN SHE DENIES ANY RECENT ILLNESS. -: Gradual, days(s) (2) - Related Data Home Medications Medication Instructions Recorded Confirmed Last Taken Duloxetine HCl [Cymbalta] 90 mg PO DAILY 09/22/16 09/23/16 Unknown Pregabalin [Lyrica] 300 mg PO BID 09/22/16 09/23/16 Unknown Trazodone HCl 150 mg PO QHS 09/22/16 09/23/16 Unknown Ziprasidone HCl [Geodon] 80 mg PO BID 09/22/16 09/23/16 Unknown predniSONE [Deltasone] 10 mg PO BID 09/22/16 09/23/16 Unknown Previous Rx's Medication Instructions Recorded Last Taken Type Insulin Detemir [Levemir VIAL] 25 unit SQ QHS #1 vial 09/23/16 Unknown Rx Insulin Aspart [NovoLOG Flexpen] 1 dose SQ AC PRN #1 pen 09/24/16 Unknown Rx Insulin Glargine [Lantus VIAL] 25 unit SUB-Q QHS 30 Days units 09/24/16 Unknown Rx Nicotine [Habitrol] 21 mg TD QDAY #30 patch 09/24/16 Unknown Rx Cephalexin [Keflex] 500 mg PO Q8HR #30 cap 10/06/16 Unknown Rx HYDROcodone/APAP 5-325 [[place] 1 each PO Q6HR PRN #12 tablet 10/06/16 Unknown Rx 5/325] Sulfamethoxazole/Trimethoprim 1 each PO BID #20 tablet 10/06/16 Unknown Rx [Bactrim DS TAB] Ketorolac [Toradol] 10 mg PO Q6H PRN #20 tablet 03/06/17 Unknown Rx Ondansetron [Zofran Odt] 4 mg PO Q8HR PRN #14 tab.rapdis 03/06/17 Unknown Rx Sulfamethoxazole/Trimethoprim 1 each PO BID #20 tablet 03/06/17 Unknown Rx [Bactrim DS TAB] Allergies Allergy/AdvReac Type Severity Reaction Status Date / Time egg Allergy Hives Verified 03/11/17 13:44 tramadol HCl [From Ultram] Allergy Hives Verified 03/11/17 13:44 vancomycin Allergy Hives Verified 03/11/17 13:44 ED Review of Systems ROS: Stated complaint: BLOOD SUGAR HIGH Other details as noted in HPI Constitutional: denies: chills, fever Eyes: denies: eye pain, eye discharge, vision change ENT: denies: ear pain, throat pain Respiratory: denies: cough, shortness of breath, wheezing Cardiovascular: denies: chest pain, palpitations Endocrine: no symptoms reported Gastrointestinal: denies: abdominal pain, nausea, diarrhea Genitourinary: denies: urgency, dysuria, discharge Musculoskeletal: denies: back pain, joint swelling, arthralgia Skin: denies: rash, lesions Neurological: denies: headache, weakness, paresthesias Psychiatric: denies: anxiety, depression Hematological/Lymphatic: denies: easy bleeding, easy bruising ED Past Medical Hx - Past Medical History Hx Diabetes: Yes (Type 1) Hx Sickle Cell Disease: No Hx Psychiatric Treatment: Yes (BIPOLAR Boderline personality) Additional medical history: LUPUS, Hydroadenitis - Surgical History Past Surgical History?: Yes Additional Surgical History: Breast reduction bilateral,excisional surg. for abscess - Social History Smoking Status: Current Every Day Smoker Substance Use Type: None - Medications Home Medications: Home Medications Medication Instructions Recorded Confirmed Last Taken Type Duloxetine HCl [Cymbalta] 90 mg PO DAILY 09/22/16 09/23/16 Unknown History Pregabalin [Lyrica] 300 mg PO BID 09/22/16 09/23/16 Unknown History Trazodone HCl 150 mg PO QHS 09/22/16 09/23/16 Unknown History Ziprasidone HCl [Geodon] 80 mg PO BID 09/22/16 09/23/16 Unknown History predniSONE [Deltasone] 10 mg PO BID 09/22/16 09/23/16 Unknown History Insulin Detemir [Levemir VIAL] 25 unit SQ QHS #1 vial 09/23/16 Unknown Rx Insulin Aspart [NovoLOG Flexpen] 1 dose SQ AC PRN #1 pen 09/24/16 Unknown Rx Insulin Glargine [Lantus VIAL] 25 unit SUB-Q QHS 30 Days units 09/24/16 Unknown Rx Nicotine [Habitrol] 21 mg TD QDAY #30 patch 09/24/16 Unknown Rx Cephalexin [Keflex] 500 mg PO Q8HR #30 cap 10/06/16 Unknown Rx HYDROcodone/APAP 5-325 [[place] 1 each PO Q6HR PRN #12 tablet 10/06/16 Unknown Rx 5/325] Sulfamethoxazole/Trimethoprim 1 each PO BID #20 tablet 10/06/16 Unknown Rx [Bactrim DS TAB] Ketorolac [Toradol] 10 mg PO Q6H PRN #20 tablet 03/06/17 Unknown Rx Ondansetron [Zofran Odt] 4 mg PO Q8HR PRN #14 tab.rapdis 03/06/17 Unknown Rx Sulfamethoxazole/Trimethoprim 1 each PO BID #20 tablet 03/06/17 Unknown Rx [Bactrim DS TAB] ED Physical Exam - General Limitations: No Limitations General appearance: alert, in no apparent distress - Head Head exam: Present: atraumatic, normocephalic - Eye Eye exam: Present: normal appearance - ENT ENT exam: Present: mucous membranes moist - Neck Neck exam: Present: normal inspection - Respiratory Respiratory exam: Present: normal lung sounds bilaterally. Absent: respiratory distress - Cardiovascular Cardiovascular Exam: Present: regular rate, normal rhythm. Absent: systolic murmur, diastolic murmur, rubs, gallop - GI/Abdominal GI/Abdominal exam: Present: soft, normal bowel sounds, other (LARGE CENTRIPITAL FAT). Absent: distended, tenderness, guarding, rebound - Rectal Rectal exam: Present: deferred - Extremities Exam Extremities exam: Present: normal inspection, full ROM - Back Exam Back exam: Present: normal inspection, full ROM - Neurological Exam Neurological exam: Present: alert, oriented X3, CN II-XII intact - Psychiatric Psychiatric exam: Present: normal affect, normal mood - Skin Skin exam: Present: warm, dry, intact, normal color. Absent: rash ED Course Vital Signs 03/11/17 03/11/17 03/11/17 13:45 22:07 22:16 Temperature 97.7 F Pulse Rate 97 H 84 83 Respiratory 18 15 22 Rate Blood Pressure 184/79 135/79 O2 Sat by Pulse 100 99 99 Oximetry 03/11/17 03/11/17 03/11/17 22:20 22:22 22:24 Temperature Pulse Rate 80 84 75 Respiratory 23 23 19 Rate Blood Pressure 136/86 136/86 136/86 O2 Sat by Pulse 99 99 99 Oximetry ED Medical Decision Making - Lab Data Result diagrams: 03/11/17 13:57 03/11/17 13:57 Critical care attestation.: If time is entered above; I have spent that time in minutes in the direct care of this critically ill patient, excluding procedure time. 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 SEE YOUR DR IN TWO DAYS. RETURN TO THE ER FOR ANY REASON Referrals: PRIMARY CARE [Primary Care Provider] - 3-5 Days Time of Disposition: 02:37
[2017-03-12 03:34] VITALS: BP 111/55
== END 2017-03-12 03:36 | disposition home or self-care (01) ==
LOC: ED 13:34
DX: E11.65 Type 2 diabetes mellitus with hyperglycemia (principal); F17.200 Nicotine dependence, unspecified, uncomplicated
CPT/HCPCS: 36415; 80048; 81001; 82805; 82962; 84703; 85025; 96361; 96374; 99283; J7030

== ENCOUNTER 2017-03-13 00:32 | Emergency (ER) | payer MEDICARE ==
[2017-03-13 01:03] VITALS: BP 120/73
== END 2017-03-13 05:00 | disposition left against medical advice (07) ==
LOC: ED 00:32
DX: L02.416 Cutaneous abscess of left lower limb (principal); Z53.21 Procedure and treatment not carried out due to patient leaving prior to being seen by health care provider
CPT/HCPCS: 82962

== ENCOUNTER 2017-03-13 08:07 | Emergency (ER) | payer MEDICARE ==
[2017-03-13 09:16] LABS: Basophils % (Auto) 0.3 % (0.0-1.8); Eosinophils % (Auto) 0.9 % (0.0-4.3); Hematocrit 37.5 % (30.3-42.9); Hemoglobin 12.2 gm/dl (10.1-14.3); Mean Corpuscular HGB Conc 32 % (30-34); Mean Corpuscular Hemoglobin 26 pg (28-32); Mean Corpuscular Volume 80 fl (79-97); Platelet Count 389 K/mm3 (140-440); Red Blood Count 4.69 M/mm3 (3.65-5.03); Red Cell Distribution Width 15.6 % (13.2-15.2); White Blood Count 11.4 K/mm3 (4.5-11.0)
[2017-03-13 09:17] LABS: Anion Gap 17 mmol/L; BUN/Creatinine Ratio 10; Blood Urea Nitrogen 8 mg/dL (7-17); Calcium 9.1 mg/dL (8.4-10.2); Carbon Dioxide 27 mmol/L (22-30); Chloride 99.2 mmol/L (98-107); Glucose 373 mg/dL (65-100); Potassium 4.5 mmol/L (3.6-5.0); Sodium 139 mmol/L (137-145)
--- NOTE | 2017-03-13 22:20 | Emergency Department Report ---
Abscess Boil HPI - HPI Chief Complaint: Skin/Abscess/Foreign Body Stated Complaint: ABCESS Time Seen by Provider: 03/13/17 21:46 Duration: 1 Week Location: Lower Extremity (left upper, inner thigh) Severity: Mild History: Yes Pain, No Fever, No Purulent Drainage, No Numbness, No Foreign Body , No Previous History, No Insect Bite Home Medications: Home Medications Medication Instructions Recorded Confirmed Last Taken Duloxetine HCl [Cymbalta] 90 mg PO DAILY 09/22/16 09/23/16 Unknown Pregabalin [Lyrica] 300 mg PO BID 09/22/16 09/23/16 Unknown Trazodone HCl 150 mg PO QHS 09/22/16 09/23/16 Unknown Ziprasidone HCl [Geodon] 80 mg PO BID 09/22/16 09/23/16 Unknown predniSONE [Deltasone] 10 mg PO BID 09/22/16 09/23/16 Unknown Previous Rx's Medication Instructions Recorded Last Taken Type Insulin Detemir [Levemir VIAL] 25 unit SQ QHS #1 vial 09/23/16 Unknown Rx Insulin Aspart [NovoLOG Flexpen] 1 dose SQ AC PRN #1 pen 09/24/16 Unknown Rx Insulin Glargine [Lantus VIAL] 25 unit SUB-Q QHS 30 Days units 09/24/16 Unknown Rx Nicotine [Habitrol] 21 mg TD QDAY #30 patch 09/24/16 Unknown Rx Cephalexin [Keflex] 500 mg PO Q8HR #30 cap 10/06/16 Unknown Rx HYDROcodone/APAP 5-325 [[place] 1 each PO Q6HR PRN #12 tablet 10/06/16 Unknown Rx 5/325] Sulfamethoxazole/Trimethoprim 1 each PO BID #20 tablet 10/06/16 Unknown Rx [Bactrim DS TAB] Ketorolac [Toradol] 10 mg PO Q6H PRN #20 tablet 03/06/17 Unknown Rx Ondansetron [Zofran Odt] 4 mg PO Q8HR PRN #14 tab.rapdis 03/06/17 Unknown Rx Sulfamethoxazole/Trimethoprim 1 each PO BID #20 tablet 03/06/17 Unknown Rx [Bactrim DS TAB] Clindamycin Phosphate [Cleocin T] 60 ml TP BID 10 Days #1 lotion 03/14/17 Unknown Rx Allergies/Adverse Reactions: Allergies Allergy/AdvReac Type Severity Reaction Status Date / Time egg Allergy Hives Verified 03/11/17 13:44 tramadol HCl [From Ultram] Allergy Hives Verified 03/11/17 13:44 vancomycin Allergy Hives Verified 03/11/17 13:44 ED Review of Systems ROS: Stated complaint: ABCESS Other details as noted in HPI Constitutional: no symptoms reported, see HPI. denies: chills, diaphoresis, fever, malaise, weakness Respiratory: no symptoms reported, see HPI. denies: cough, orthopnea, shortness of breath, SOB with exertion, SOB at rest, stridor, wheezing Cardiovascular: as per HPI. denies: chest pain, palpitations, dyspnea on exertion, orthopnea, edema, syncope, paroxysmal nocturnal dyspnea Endocrine: no symptoms reported, see HPI Skin: as per HPI, lesions (left inner thigh) Psychiatric: as per HPI. denies: anxiety, depression, auditory hallucinations, visual hallucinations, homicidal thoughts, suicidal thoughts ED Past Medical Hx - Past Medical History Previous Medical History?: Yes Hx Diabetes: Yes (Type 2) Hx Sickle Cell Disease: No Hx Psychiatric Treatment: Yes (BIPOLAR Boderline personality) Additional medical history: LUPUS, Hydroadenitis - Surgical History Past Surgical History?: Yes Hx Breast Surgery: Yes Additional Surgical History: Breast reduction bilateral,excisional surg. for abscess - Social History Smoking Status: Current Every Day Smoker Substance Use Type: Marijuana, Prescribed - Medications Home Medications: Home Medications Medication Instructions Recorded Confirmed Last Taken Type Duloxetine HCl [Cymbalta] 90 mg PO DAILY 09/22/16 09/23/16 Unknown History Pregabalin [Lyrica] 300 mg PO BID 09/22/16 09/23/16 Unknown History Trazodone HCl 150 mg PO QHS 09/22/16 09/23/16 Unknown History Ziprasidone HCl [Geodon] 80 mg PO BID 09/22/16 09/23/16 Unknown History predniSONE [Deltasone] 10 mg PO BID 09/22/16 09/23/16 Unknown History Insulin Detemir [Levemir VIAL] 25 unit SQ QHS #1 vial 09/23/16 Unknown Rx Insulin Aspart [NovoLOG Flexpen] 1 dose SQ AC PRN #1 pen 09/24/16 Unknown Rx Insulin Glargine [Lantus VIAL] 25 unit SUB-Q QHS 30 Days units 09/24/16 Unknown Rx Nicotine [Habitrol] 21 mg TD QDAY #30 patch 09/24/16 Unknown Rx Cephalexin [Keflex] 500 mg PO Q8HR #30 cap 10/06/16 Unknown Rx HYDROcodone/APAP 5-325 [[place] 1 each PO Q6HR PRN #12 tablet 10/06/16 Unknown Rx 5/325] Sulfamethoxazole/Trimethoprim 1 each PO BID #20 tablet 10/06/16 Unknown Rx [Bactrim DS TAB] Ketorolac [Toradol] 10 mg PO Q6H PRN #20 tablet 03/06/17 Unknown Rx Ondansetron [Zofran Odt] 4 mg PO Q8HR PRN #14 tab.rapdis 03/06/17 Unknown Rx Sulfamethoxazole/Trimethoprim 1 each PO BID #20 tablet 03/06/17 Unknown Rx [Bactrim DS TAB] Clindamycin Phosphate [Cleocin T] 60 ml TP BID 10 Days #1 lotion 03/14/17 Unknown Rx ED Abscess Boil Physical Exam - Exam General: Vital signs noted. No distress. Alert and acting appropriately. Size: 1 cm Exam: Yes Tenderness, Yes Surrounding Cellulites/Erythema, Yes Normal Neurologic Exam, Yes Normal Circulation, No Fluctuance, No Lymphangitis, No Crepitation, No Heart Murmur ED Course Vital Signs 03/13/17 08:11 Temperature 98.4 F Pulse Rate 121 H Respiratory 20 Rate Blood Pressure 111/68 O2 Sat by Pulse 100 Oximetry Critical care attestation.: If time is entered above; I have spent that time in minutes in the direct care of this critically ill patient, excluding procedure time. ED Medical Decision Making - Lab Data Result diagrams: 03/13/17 08:39 03/13/17 08:39 - Medical Decision Making 37 y.o. female, presenting with left inner thigh abscess, history of hidradenitis suppurativa, seen here 3 days ago and started on bactrim DS. Continue bactrim, started cleocin T, referred to burn center and dermatology. ED Disposition Clinical Impression: Abscess of left thigh Disposition: DC-01 TO HOME OR SELFCARE Is pt being admited?: No Does the pt Need Aspirin: No Condition: Stable Instructions: Abscess (ED) Prescriptions: Clindamycin Phosphate [Cleocin T] 60 ml TP BID 10 Days #1 lotion Referrals: DURAN STRICKLAND MD [Primary Care Provider] - 3-5 Days [facility] [Outside] - 3-5 Days KATHY VALENTE MD [Staff Physician] - 3-5 Days Time of Disposition: 00:24 Print Language: PASHTO
[2017-03-13] MEDS ORDERED: NOVOLOG SUB-Q ONE (22:46)
[2017-03-14 00:51] VITALS: BP 142/95
== END 2017-03-14 00:52 | disposition home or self-care (01) ==
LOC: ED 08:07
DX: L02.416 Cutaneous abscess of left lower limb (principal); E11.9 Type 2 diabetes mellitus without complications; F31.9 Bipolar disorder, unspecified; F17.200 Nicotine dependence, unspecified, uncomplicated; F12.10 Cannabis abuse, uncomplicated; Z91.012 Allergy to eggs; Z88.8 Allergy status to other drugs, medicaments and biological substances
CPT/HCPCS: 36415; 80048; 82962; 85025; 96372; 99283; J1815

== ENCOUNTER 2017-03-16 23:21 | Emergency (ER) | payer MEDICARE ==
[2017-03-17 00:34] LABS: BUN/Creatinine Ratio 10; Blood Urea Nitrogen 9 mg/dL (7-17); Calcium 9.5 mg/dL (8.4-10.2); Carbon Dioxide 25 mmol/L (22-30); Chloride 97.1 mmol/L (98-107); Glucose 353 mg/dL (65-100); Potassium 5.4 mmol/L (3.6-5.0); Sodium 139 mmol/L (137-145)
[2017-03-17 00:41] LABS: Basophils % (Auto) 0.2 % (0.0-1.8); Eosinophils % (Auto) 1.2 % (0.0-4.3); Hematocrit 37.6 % (30.3-42.9); Hemoglobin 11.9 gm/dl (10.1-14.3); Mean Corpuscular HGB Conc 32 % (30-34); Mean Corpuscular Volume 79 fl (79-97); Platelet Count 354 K/mm3 (140-440); Red Blood Count 4.76 M/mm3 (3.65-5.03); Red Cell Distribution Width 15.6 % (13.2-15.2); White Blood Count 12.1 K/mm3 (4.5-11.0)
[2017-03-17 00:43] LABS: Mean Corpuscular Hemoglobin 25 pg (28-32)
[2017-03-17 00:54] LABS: Anion Gap 22 mmol/L
[2017-03-17 01:05] LABS: Bilirubin,Urine NEG (Negative); Blood,Urine NEG (Negative); Ketones,Urine NEG (Negative); Leukocyte Esterase,Urine NEG (Negative); Nitrite,Urine NEG (Negative); Protein,Urine <15 mg/dL mg/dL (Negative); Urobilinogen,Urine < 2.0 mg/dL (<2.0)
--- NOTE | 2017-03-17 04:30 | Emergency Department Report ---
ED General Adult HPI - General Chief complaint: Hyperglycemia Stated complaint: HIGH BGL Time Seen by Provider: 03/17/17 04:26 Source: patient Mode of arrival: Ambulatory Limitations: No Limitations - History of Present Illness Initial comments: Patient is a 37-year-old female that is over at the [facility] and patient found to have a elevated blood sugar at 300+. Patient was then sent here for medical evaluation of why her blood sugar was high and medical clearance prior to returning to [place]. She denies pain. She denies dysuria. Patient denies chest pain, shortness of breath, dizziness, weakness, visual changes, fever, chills, abdominal pain and dry mouth. -: Sudden - Related Data Home Medications Medication Instructions Recorded Confirmed Last Taken Duloxetine HCl [Cymbalta] 90 mg PO DAILY 09/22/16 09/23/16 Unknown Pregabalin [Lyrica] 300 mg PO BID 09/22/16 09/23/16 Unknown Trazodone HCl 150 mg PO QHS 09/22/16 09/23/16 Unknown Ziprasidone HCl [Geodon] 80 mg PO BID 09/22/16 09/23/16 Unknown predniSONE [Deltasone] 10 mg PO BID 09/22/16 09/23/16 Unknown Previous Rx's Medication Instructions Recorded Last Taken Type Insulin Detemir [Levemir VIAL] 25 unit SQ QHS #1 vial 09/23/16 Unknown Rx Insulin Aspart [NovoLOG Flexpen] 1 dose SQ AC PRN #1 pen 09/24/16 Unknown Rx Insulin Glargine [Lantus VIAL] 25 unit SUB-Q QHS 30 Days units 09/24/16 Unknown Rx Nicotine [Habitrol] 21 mg TD QDAY #30 patch 09/24/16 Unknown Rx Cephalexin [Keflex] 500 mg PO Q8HR #30 cap 10/06/16 Unknown Rx HYDROcodone/APAP 5-325 [[place] 1 each PO Q6HR PRN #12 tablet 10/06/16 Unknown Rx 5/325] Sulfamethoxazole/Trimethoprim 1 each PO BID #20 tablet 10/06/16 Unknown Rx [Bactrim DS TAB] Ketorolac [Toradol] 10 mg PO Q6H PRN #20 tablet 03/06/17 Unknown Rx Ondansetron [Zofran Odt] 4 mg PO Q8HR PRN #14 tab.rapdis 03/06/17 Unknown Rx Sulfamethoxazole/Trimethoprim 1 each PO BID #20 tablet 03/06/17 Unknown Rx [Bactrim DS TAB] Clindamycin Phosphate [Cleocin T] 60 ml TP BID 10 Days #1 lotion 03/14/17 Unknown Rx Allergies Allergy/AdvReac Type Severity Reaction Status Date / Time egg Allergy Hives Verified 03/11/17 13:44 tramadol HCl [From Ultram] Allergy Hives Verified 03/11/17 13:44 vancomycin Allergy Hives Verified 03/11/17 13:44 ED Review of Systems ROS: Stated complaint: HIGH BGL Other details as noted in HPI Comment: All other systems reviewed and negative Constitutional: denies: chills, fever Eyes: denies: eye pain, eye discharge, vision change ENT: denies: ear pain, throat pain Respiratory: denies: cough, shortness of breath, wheezing Cardiovascular: denies: chest pain, palpitations Endocrine: no symptoms reported Gastrointestinal: denies: abdominal pain, nausea, diarrhea Genitourinary: denies: urgency, dysuria, discharge Musculoskeletal: denies: back pain, joint swelling, arthralgia Skin: denies: rash, lesions Neurological: denies: headache, weakness, paresthesias Psychiatric: denies: anxiety, depression Hematological/Lymphatic: denies: easy bleeding, easy bruising ED Past Medical Hx - Past Medical History Hx Diabetes: Yes (Type 2) Hx Sickle Cell Disease: No Hx Psychiatric Treatment: Yes (BIPOLAR Boderline personality) Additional medical history: LUPUS, Hydroadenitis - Surgical History Hx Breast Surgery: Yes Additional Surgical History: Breast reduction bilateral,excisional surg. for abscess - Social History Smoking Status: Current Every Day Smoker Substance Use Type: None - Medications Home Medications: Home Medications Medication Instructions Recorded Confirmed Last Taken Type Duloxetine HCl [Cymbalta] 90 mg PO DAILY 09/22/16 09/23/16 Unknown History Pregabalin [Lyrica] 300 mg PO BID 09/22/16 09/23/16 Unknown History Trazodone HCl 150 mg PO QHS 09/22/16 09/23/16 Unknown History Ziprasidone HCl [Geodon] 80 mg PO BID 09/22/16 09/23/16 Unknown History predniSONE [Deltasone] 10 mg PO BID 09/22/16 09/23/16 Unknown History Insulin Detemir [Levemir VIAL] 25 unit SQ QHS #1 vial 09/23/16 Unknown Rx Insulin Aspart [NovoLOG Flexpen] 1 dose SQ AC PRN #1 pen 09/24/16 Unknown Rx Insulin Glargine [Lantus VIAL] 25 unit SUB-Q QHS 30 Days units 09/24/16 Unknown Rx Nicotine [Habitrol] 21 mg TD QDAY #30 patch 09/24/16 Unknown Rx Cephalexin [Keflex] 500 mg PO Q8HR #30 cap 10/06/16 Unknown Rx HYDROcodone/APAP 5-325 [[place] 1 each PO Q6HR PRN #12 tablet 10/06/16 Unknown Rx 5/325] Sulfamethoxazole/Trimethoprim 1 each PO BID #20 tablet 10/06/16 Unknown Rx [Bactrim DS TAB] Ketorolac [Toradol] 10 mg PO Q6H PRN #20 tablet 03/06/17 Unknown Rx Ondansetron [Zofran Odt] 4 mg PO Q8HR PRN #14 tab.rapdis 03/06/17 Unknown Rx Sulfamethoxazole/Trimethoprim 1 each PO BID #20 tablet 03/06/17 Unknown Rx [Bactrim DS TAB] Clindamycin Phosphate [Cleocin T] 60 ml TP BID 10 Days #1 lotion 03/14/17 Unknown Rx ED Physical Exam - General Limitations: No Limitations General appearance: alert, in no apparent distress - Head Head exam: Present: atraumatic, normocephalic - Eye Eye exam: Present: normal appearance - ENT ENT exam: Present: mucous membranes moist - Neck Neck exam: Present: normal inspection - Respiratory Respiratory exam: Present: normal lung sounds bilaterally. Absent: respiratory distress - Cardiovascular Cardiovascular Exam: Present: regular rate, normal rhythm. Absent: systolic murmur, diastolic murmur, rubs, gallop - GI/Abdominal GI/Abdominal exam: Present: soft, normal bowel sounds - Extremities Exam Extremities exam: Present: normal inspection - Back Exam Back exam: Present: normal inspection - Neurological Exam Neurological exam: Present: alert, oriented X3 - Psychiatric Psychiatric exam: Present: normal affect, normal mood - Skin Skin exam: Present: warm, dry, intact, normal color. Absent: rash ED Course Vital Signs 03/16/17 03/17/17 03/17/17 23:38 03:24 03:31 Pulse Rate 88 76 76 Respiratory 16 19 18 Rate Blood Pressure 127/83 152/101 O2 Sat by Pulse 97 99 98 Oximetry 03/17/17 03:39 Pulse Rate 86 Respiratory 20 Rate Blood Pressure O2 Sat by Pulse Oximetry ED Medical Decision Making - Lab Data Result diagrams: 03/16/17 23:45 03/17/17 05:34 - Medical Decision Making Sugar has stabilized and potassium returned to normal. We'll send patient back with diet precautions and insulin use instructions Critical care attestation.: If time is entered above; I have spent that time in minutes in the direct care of this critically ill patient, excluding procedure time. ED Disposition Clinical Impression: Elevated blood sugar, Hyperkalemia, Uncontrolled diabetes mellitus Disposition: DC/TX-65 PSY HOSP/PSY UNIT Is pt being admited?: No Does the pt Need Aspirin: No Condition: Stable Instructions: Diabetes Mellitus Type 2 in Adults (ED) Additional Instructions: Patient to return to ER if condition worsens. She to return to psychiatric facility. To continue all diabetes meds. Patient to eat an ADA diet. Increase water. Referrals: DURAN STRICKLAND MD [Primary Care Provider] - 3-5 Days Time of Disposition: 06:25
[2017-03-17 05:56] LABS: BUN/Creatinine Ratio 9; Blood Urea Nitrogen 7 mg/dL (7-17); Calcium 8.7 mg/dL (8.4-10.2)
[2017-03-17 06:22] LABS: Anion Gap 20 mmol/L; Carbon Dioxide 24 mmol/L (22-30); Chloride 99.5 mmol/L (98-107); Glucose 211 mg/dL (65-100); Sodium 139 mmol/L (137-145)
[2017-03-17 06:25] LABS: Potassium 4.3 mmol/L (3.6-5.0)
[2017-03-17 06:39] VITALS: BP 133/74
== END 2017-03-17 06:39 ==
LOC: ED 23:21
DX: E11.65 Type 2 diabetes mellitus with hyperglycemia (principal); E87.5 Hyperkalemia; E11.9 Type 2 diabetes mellitus without complications; F17.200 Nicotine dependence, unspecified, uncomplicated
CPT/HCPCS: 36415; 80048; 81001; 82805; 82962; 85025; 96372; J1815

== ENCOUNTER 2017-04-02 13:09 | Emergency (ER) | payer MEDICARE ==
[2017-04-02 13:16] VITALS: BP 120/81
--- NOTE | 2017-04-02 13:34 | Emergency Department Report ---
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 Due to findings the following was ordered: ED Disposition for MSE Condition: Stable
--- NOTE | 2017-04-02 14:00 | Emergency Department Report ---
ED Medical Clearance HPI - General Chief complaint: Medical Clearance Stated complaint: MEDICAL CLEARANCE Time Seen by Provider: 04/02/17 13:33 Source: patient Mode of arrival: Ambulatory - History of Present Illness -: Gradual Alledged Intoxication: No Compliant with Home Medications: Yes Home medications: Home Medications Medication Instructions Recorded Confirmed Last Taken Duloxetine HCl [Cymbalta] 90 mg PO DAILY 09/22/16 09/23/16 Unknown Pregabalin [Lyrica] 300 mg PO BID 09/22/16 09/23/16 Unknown Trazodone HCl 150 mg PO QHS 09/22/16 09/23/16 Unknown Ziprasidone HCl [Geodon] 80 mg PO BID 09/22/16 09/23/16 Unknown Previous Rx's Medication Instructions Recorded Last Taken Type Insulin Detemir [Levemir VIAL] 25 unit SQ QHS #1 vial 09/23/16 Unknown Rx Insulin Aspart [NovoLOG Flexpen] 1 dose SQ AC PRN #1 pen 09/24/16 Unknown Rx Insulin Glargine [Lantus VIAL] 25 unit SUB-Q QHS 30 Days units 09/24/16 Unknown Rx Nicotine [Habitrol] 21 mg TD QDAY #30 patch 09/24/16 Unknown Rx Insulin Regular, Human [HumuLIN R] 100 unit SQ AC #1 units 04/02/17 Unknown Rx Allergies/Adverse reactions: Allergies Allergy/AdvReac Type Severity Reaction Status Date / Time egg Allergy Hives Verified 04/02/17 13:13 tramadol HCl [From Ultram] Allergy Hives Verified 04/02/17 13:13 vancomycin Allergy Hives Verified 04/02/17 13:13 ED Review of Systems ROS: Stated complaint: MEDICAL CLEARANCE Other details as noted in HPI Comment: HERE FOR MED REFILL ONLY; NO COMPLAINTS AND NO PROBLEMS ED Past Medical Hx - Past Medical History Previous Medical History?: No Hx Diabetes: Yes (Type 2) Hx Sickle Cell Disease: No Hx Psychiatric Treatment: Yes (BIPOLAR Boderline personality) Additional medical history: LUPUS, Hydroadenitis - Surgical History Hx Breast Surgery: Yes Additional Surgical History: Breast reduction bilateral,excisional surg. for abscess - Social History Smoking Status: Current Every Day Smoker Substance Use Type: Marijuana - Medications Home Medications: Home Medications Medication Instructions Recorded Confirmed Last Taken Type Duloxetine HCl [Cymbalta] 90 mg PO DAILY 09/22/16 09/23/16 Unknown History Pregabalin [Lyrica] 300 mg PO BID 09/22/16 09/23/16 Unknown History Trazodone HCl 150 mg PO QHS 09/22/16 09/23/16 Unknown History Ziprasidone HCl [Geodon] 80 mg PO BID 09/22/16 09/23/16 Unknown History Insulin Detemir [Levemir VIAL] 25 unit SQ QHS #1 vial 09/23/16 Unknown Rx Insulin Aspart [NovoLOG Flexpen] 1 dose SQ AC PRN #1 pen 09/24/16 Unknown Rx Insulin Glargine [Lantus VIAL] 25 unit SUB-Q QHS 30 Days units 09/24/16 Unknown Rx Nicotine [Habitrol] 21 mg TD QDAY #30 patch 09/24/16 Unknown Rx Insulin Regular, Human [HumuLIN R] 100 unit SQ AC #1 units 04/02/17 Unknown Rx ED Physical Exam - General Limitations: No Limitations General appearance: alert - Head Head exam: Present: atraumatic - Eye Eye exam: Present: PERRL - ENT ENT exam: Present: mucous membranes moist - Neck Neck exam: Present: normal inspection - Respiratory Respiratory exam: Present: normal lung sounds bilaterally, respiratory distress - Cardiovascular Cardiovascular Exam: Present: regular rate - GI/Abdominal GI/Abdominal exam: Present: soft - Extremities Exam Extremities exam: Present: normal inspection - Back Exam Back exam: Present: normal inspection - Neurological Exam Neurological exam: Present: alert, oriented X3, CN II-XII intact - Psychiatric Psychiatric exam: Present: normal affect, normal mood - Skin Skin exam: Present: warm, dry, intact ED Course Vital Signs 04/02/17 13:13 Temperature 98.5 F Pulse Rate 103 H Respiratory 18 Rate Blood Pressure 120/81 O2 Sat by Pulse 98 Oximetry - Reevaluation(s) Reevaluation #1: TO ER FROM [facility] SHE IS PT THERE AND THEY WILL NOT LET HER TAKE HER DM MEDS WO US FILLING AND HER OBTAINING THEM BS STABLE COMPLIANT AT HOME NO COMPLAINTS RX GIVEN DC BACK TO [facility] ED Medical Decision Making - Medical Decision Making SEE NOTE - Differential Diagnosis MED REFILL ONLY ED Disposition Clinical Impression: Morbid obesity, Diabetes Disposition: DC-01 TO HOME OR SELFCARE Is pt being admited?: No Does the pt Need Aspirin: No Condition: Stable Instructions: Diabetic Ketoacidosis (ED), Diabetes Mellitus Type 2 in Adults ( ED) Prescriptions: Insulin Regular, Human [HumuLIN R] 100 unit SQ AC #1 units Referrals: HANSEL RODRIGUEZ MD [Staff Physician] - 3-5 Days Time of Disposition: 13:57
== END 2017-04-02 14:10 | disposition home or self-care (01) ==
LOC: ED 13:09
DX: E11.9 Type 2 diabetes mellitus without complications (principal); E66.01 Morbid (severe) obesity due to excess calories; F31.9 Bipolar disorder, unspecified; F17.200 Nicotine dependence, unspecified, uncomplicated; Z88.8 Allergy status to other drugs, medicaments and biological substances; Z91.012 Allergy to eggs; Z79.4 Long term (current) use of insulin
CPT/HCPCS: 99282

== ENCOUNTER 2017-04-06 18:30 | Emergency (ER) | payer MEDICARE ==
--- NOTE | 2017-04-06 23:42 | Emergency Department Report ---
ED General Adult HPI - General Chief complaint: Medical Clearance Stated complaint: INCORRECT INSULIN DOSAGE Time Seen by Provider: 04/06/17 23:28 Source: patient Mode of arrival: Ambulatory Limitations: No Limitations - History of Present Illness Initial comments: Patient obtained a prescription for insulin the other day from here. Her trailer steerer is dr. Lewis. She is at [place] right now and they demand she follow the Sigs on prescriptions which when she is doing that with the insulin she is getting as low as 51. She need a Rx with a new sig or a note stating she can follow Dr. Lewis's Rx for 20 units at mealtime plus SSI. Complaint: hypoglycemia -: Gradual Radiation: other (bloodstream) Severity scale (0 -10): 6 Quality: other (hypoglycemia) Consistency: intermittent, now resolved Improves with: eating Worsens with: medication Associated Symptoms: diaphoresis, nausea/vomiting, weakness Treatments Prior to Arrival: none - Related Data Home Medications Medication Instructions Recorded Confirmed Last Taken Duloxetine HCl [Cymbalta] 90 mg PO DAILY 09/22/16 09/23/16 Unknown Pregabalin [Lyrica] 300 mg PO BID 09/22/16 09/23/16 Unknown Trazodone HCl 150 mg PO QHS 09/22/16 09/23/16 Unknown Ziprasidone HCl [Geodon] 80 mg PO BID 09/22/16 09/23/16 Unknown Previous Rx's Medication Instructions Recorded Last Taken Type Insulin Detemir [Levemir VIAL] 25 unit SQ QHS #1 vial 09/23/16 Unknown Rx Insulin Aspart [NovoLOG Flexpen] 1 dose SQ AC PRN #1 pen 09/24/16 Unknown Rx Insulin Glargine [Lantus VIAL] 25 unit SUB-Q QHS 30 Days units 09/24/16 Unknown Rx Nicotine [Habitrol] 21 mg TD QDAY #30 patch 09/24/16 Unknown Rx Insulin Regular, Human [HumuLIN R] 100 unit SQ AC #1 units 04/02/17 Unknown Rx Allergies Allergy/AdvReac Type Severity Reaction Status Date / Time egg Allergy Hives Verified 04/02/17 13:13 tramadol HCl [From Ultram] Allergy Hives Verified 04/02/17 13:13 vancomycin Allergy Hives Verified 04/02/17 13:13 ED Review of Systems ROS: Stated complaint: INCORRECT INSULIN DOSAGE Other details as noted in HPI Constitutional: denies: chills, fever Eyes: denies: eye pain, eye discharge, vision change ENT: denies: ear pain, throat pain Respiratory: denies: cough, shortness of breath, wheezing Cardiovascular: denies: chest pain, palpitations Endocrine: no symptoms reported Gastrointestinal: denies: abdominal pain, nausea, diarrhea Genitourinary: denies: urgency, dysuria, discharge Musculoskeletal: denies: back pain, joint swelling, arthralgia Skin: denies: rash, lesions Neurological: denies: headache, weakness, paresthesias Psychiatric: denies: anxiety, depression Hematological/Lymphatic: denies: easy bleeding, easy bruising ED Past Medical Hx - Past Medical History Hx Diabetes: Yes (Type 2) Hx Sickle Cell Disease: No Hx Psychiatric Treatment: Yes (BIPOLAR Boderline personality) Additional medical history: LUPUS, Hydroadenitis - Surgical History Hx Breast Surgery: Yes Additional Surgical History: Breast reduction bilateral,excisional surg. for abscess - Social History Smoking Status: Current Every Day Smoker Substance Use Type: Marijuana - Medications Home Medications: Home Medications Medication Instructions Recorded Confirmed Last Taken Type Duloxetine HCl [Cymbalta] 90 mg PO DAILY 09/22/16 09/23/16 Unknown History Pregabalin [Lyrica] 300 mg PO BID 09/22/16 09/23/16 Unknown History Trazodone HCl 150 mg PO QHS 09/22/16 09/23/16 Unknown History Ziprasidone HCl [Geodon] 80 mg PO BID 09/22/16 09/23/16 Unknown History Insulin Detemir [Levemir VIAL] 25 unit SQ QHS #1 vial 09/23/16 Unknown Rx Insulin Aspart [NovoLOG Flexpen] 1 dose SQ AC PRN #1 pen 09/24/16 Unknown Rx Insulin Glargine [Lantus VIAL] 25 unit SUB-Q QHS 30 Days units 09/24/16 Unknown Rx Nicotine [Habitrol] 21 mg TD QDAY #30 patch 09/24/16 Unknown Rx Insulin Regular, Human [HumuLIN R] 100 unit SQ AC #1 units 04/02/17 Unknown Rx ED Physical Exam - General Limitations: No Limitations General appearance: alert, in no apparent distress - Head Head exam: Present: atraumatic, normocephalic - Eye Eye exam: Present: normal appearance - ENT ENT exam: Present: mucous membranes moist - Neck Neck exam: Present: normal inspection - Respiratory Respiratory exam: Present: normal lung sounds bilaterally. Absent: respiratory distress - Cardiovascular Cardiovascular Exam: Present: regular rate, normal rhythm. Absent: systolic murmur, diastolic murmur, rubs, gallop - GI/Abdominal GI/Abdominal exam: Present: soft, normal bowel sounds - Extremities Exam Extremities exam: Present: normal inspection - Back Exam Back exam: Present: normal inspection - Neurological Exam Neurological exam: Present: alert, oriented X3 - Psychiatric Psychiatric exam: Present: normal affect, normal mood - Skin Skin exam: Present: warm, dry, intact, normal color. Absent: rash ED Course Vital Signs 04/06/17 20:21 Temperature 98.7 F Pulse Rate 54 L Respiratory 16 Rate Blood Pressure 129/82 O2 Sat by Pulse 99 Oximetry ED Medical Decision Making - Medical Decision Making Patient with hypoglycemia when taking too much insulin but Rx was written incorrectly. She can use the same Rx but will give [place] my note giving her permission to follow Dr. Lewis's instructions and that she is to follow up with him soon. Critical care attestation.: If time is entered above; I have spent that time in minutes in the direct care of this critically ill patient, excluding procedure time. ED Disposition Clinical Impression: Hypoglycemia due to type 1 diabetes mellitus Disposition: - TO HOME OR SELFCARE Is pt being admited?: No Does the pt Need Aspirin: No Condition: Good Instructions: Diabetes Mellitus Type 2 in Adults (ED), Diabetic Hypoglycemia ( ED) Additional Instructions: Patient is to follow the instructions given to her by her [employer] for insulin use, "20 units plus sliding scale insulin at each meal". She may follow these instructions regardless of the Sig of the current prescription. She needs follow up with [employer] as the ED does not manage patients diabetes chronically. Referrals: [facility] [Outside] - 3-5 Days (Or your trailer steerer Dr. Lewis) Time of Disposition: 23:45
[2017-04-07 00:16] VITALS: BP 162/99
== END 2017-04-07 00:13 | disposition home or self-care (01) ==
LOC: ED 18:30
DX: E10.649 Type 1 diabetes mellitus with hypoglycemia without coma (principal); F31.9 Bipolar disorder, unspecified; M32.9 Systemic lupus erythematosus, unspecified; Z79.4 Long term (current) use of insulin; Z91.012 Allergy to eggs; Z88.1 Allergy status to other antibiotic agents
CPT/HCPCS: 82962; 99282

== ENCOUNTER 2017-04-08 09:07 | Emergency (ER) | payer MEDICARE ==
[2017-04-08 10:03] VITALS: BP 167/83
[2017-04-08 10:38] LABS: Hematocrit 35.4 % (30.3-42.9); Hemoglobin 11.4 gm/dl (10.1-14.3); Mean Corpuscular HGB Conc 32 % (30-34); Mean Corpuscular Volume 79 fl (79-97); Platelet Count 407 K/mm3 (140-440); Red Blood Count 4.47 M/mm3 (3.65-5.03)
[2017-04-08 10:42] LABS: Mean Corpuscular Hemoglobin 26 pg (28-32)
[2017-04-08 10:55] LABS: BUN/Creatinine Ratio 13; Blood Urea Nitrogen 10 mg/dL (7-17); Calcium 9.6 mg/dL (8.4-10.2); Hemolysis Index 8
== END 2017-04-08 10:20 | disposition left against medical advice (07) ==
LOC: ED 09:07
DX: L02.416 Cutaneous abscess of left lower limb (principal); Z53.21 Procedure and treatment not carried out due to patient leaving prior to being seen by health care provider
CPT/HCPCS: 36415; 80048; 82962; 85027

== ENCOUNTER 2017-04-09 19:17 | Emergency (ER) | payer MEDICARE ==
[2017-04-09 19:35] VITALS: BP 151/105
[2017-04-09 20:06] LABS: Basophils # (Auto) 0.1 K/mm3 (0.0-0.1); Basophils % (Auto) 0.9 % (0.0-1.8); Eosinophils # (Auto) 0.2 K/mm3 (0.0-0.4); Eosinophils % (Auto) 1.5 % (0.0-4.3); Hemoglobin 11.9 gm/dl (10.1-14.3); Lymphocytes # (Auto) 2.5 K/mm3 (1.2-5.4); Lymphocytes % (Auto) 21.7 % (13.4-35.0); Mean Corpuscular HGB Conc 31 % (30-34); Mean Corpuscular Volume 79 fl (79-97); Monocytes # (Auto) 0.4 K/mm3 (0.0-0.8); Monocytes % (Auto) 3.5 % (0.0-7.3); Platelet Count 409 K/mm3 (140-440); Red Blood Count 4.81 M/mm3 (3.65-5.03); Red Cell Distribution Width 15.7 % (13.2-15.2)
[2017-04-09 20:09] LABS: Mean Corpuscular Hemoglobin 25 pg (28-32)
[2017-04-09 20:19] LABS: BUN/Creatinine Ratio 11; Blood Urea Nitrogen 9 mg/dL (7-17); Calcium 9.2 mg/dL (8.4-10.2); Hemolysis Index 30
== END 2017-04-10 09:15 | disposition left against medical advice (07) ==
LOC: ED 19:17
DX: R42 Dizziness and giddiness (principal); Z53.21 Procedure and treatment not carried out due to patient leaving prior to being seen by health care provider
CPT/HCPCS: 36415; 80048; 82805; 82962; 84703; 85025; 93005; 93010

== ENCOUNTER 2017-04-10 11:37 | Emergency (ER) | payer MEDICARE ==
[2017-04-10 11:50] VITALS: BP 125/82
--- NOTE | 2017-04-10 13:31 | Emergency Department Report ---
ED Recheck HPI - General Chief Complaint: Recheck/Abnormal Lab/Rx Stated Complaint: HYPERGLYCEMIA Time Seen by Provider: 04/10/17 12:17 Source: patient Mode of arrival: Ambulatory Limitations: No Limitations - History of Present Illness Initial Comments: Patient reports that she ran out of her insulin pen and would like to have reordered. She said her blood sugar is a little bit elevated because she does not have the pain. She is requesting refill on Levemir pin and Humulin pin. Blood sugar in triage is 211. Patient able to tolerate oral liquids. She denies any nausea or vomiting. Denies any fever or chills. Denies any increased urination, frequency or thirst. Patient says she would also like to change her Humulin to Humalog. I discussed with her she needs to discuss that with her primary care physician I will just refill the needles. Complaint: medication refill request Onset/Timin -: days(s) Initial Visit For: other (today for needle refill) Returns Today for: request for prescription Symptoms Since Prior Visit: no new symptoms Context: ran out of medication (needles) Associated Symptoms: none Treatments Prior to Arrival: other - Related Data Home Medications Medication Instructions Recorded Confirmed Last Taken Duloxetine HCl [Cymbalta] 90 mg PO DAILY 09/22/16 09/23/16 Unknown Pregabalin [Lyrica] 300 mg PO BID 09/22/16 09/23/16 Unknown Trazodone HCl 150 mg PO QHS 09/22/16 09/23/16 Unknown Ziprasidone HCl [Geodon] 80 mg PO BID 09/22/16 09/23/16 Unknown Previous Rx's Medication Instructions Recorded Last Taken Type Insulin Detemir [Levemir VIAL] 25 unit SQ QHS #1 vial 09/23/16 Unknown Rx Insulin Aspart [NovoLOG Flexpen] 1 dose SQ AC PRN #1 pen 09/24/16 Unknown Rx Insulin Glargine [Lantus VIAL] 25 unit SUB-Q QHS 30 Days units 09/24/16 Unknown Rx Nicotine [Habitrol] 21 mg TD QDAY #30 patch 09/24/16 Unknown Rx Insulin Regular, Human [HumuLIN R] 100 unit SQ AC #1 units 04/02/17 Unknown Rx Syringe-Needle,Insulin,0.5 ml 1 each MC UNK 30 Days #100 04/10/17 Unknown Rx [Insulin Syringe/Needle 0.5 ML] disp.syrin Allergies Allergy/AdvReac Type Severity Reaction Status Date / Time egg Allergy Hives Verified 04/02/17 13:13 tramadol HCl [From Ultram] Allergy Hives Verified 04/02/17 13:13 vancomycin Allergy Hives Verified 04/02/17 13:13 ED Review of Systems ROS: Stated complaint: HYPERGLYCEMIA Other details as noted in HPI Comment: All other systems reviewed and negative Constitutional: no symptoms reported, other (requested for the needle refill) Eyes: denies: eye pain, vision change ENT: denies: congestion Respiratory: no symptoms reported Cardiovascular: denies: chest pain, palpitations, dyspnea on exertion, edema, syncope, paroxysmal nocturnal dyspnea Gastrointestinal: denies: abdominal pain, nausea, vomiting, diarrhea Genitourinary: denies: as per HPI, urgency, dysuria, frequency, hematuria, discharge Musculoskeletal: denies: back pain, joint swelling, arthralgia, myalgia Skin: denies: rash Neurological: denies: headache ED Past Medical Hx - Past Medical History Previous Medical History?: Yes Hx Hypertension: No Hx CVA: No Hx Heart Attack/AMI: No Hx Congestive Heart Failure: No Hx Diabetes: Yes (Type 2) Hx Deep Vein Thrombosis: No Hx Pulmonary Embolism: No Hx GERD: No Hx Liver Disease: No Hx Renal Disease: No Hx of Cancer: No Hx Sickle Cell Disease: No Hx Arthritis: No Hx Headaches / Migraines: No Hx Seizures: No Hx Kidney Stones: No Hx Psychiatric Treatment: Yes (BIPOLAR Boderline personality) Hx Asthma: No Hx COPD: No Hx Tuberculosis: No Hx Dementia: No Hx HIV: No Additional medical history: LUPUS, Hydroadenitis - Surgical History Past Surgical History?: Yes Hx Coronary Stent: No Hx Open Heart Surgery: No Hx Pacemaker: No Hx Internal Defibrillator: No Hx Cholecystectomy: No Hx Appendectomy: No Hx Breast Surgery: Yes Additional Surgical History: Breast reduction bilateral,excisional surg. for abscess - Family History Family history: diabetes, hypertension - Social History Smoking Status: Current Every Day Smoker Substance Use Type: Marijuana - Medications Home Medications: Home Medications Medication Instructions Recorded Confirmed Last Taken Type Duloxetine HCl [Cymbalta] 90 mg PO DAILY 09/22/16 09/23/16 Unknown History Pregabalin [Lyrica] 300 mg PO BID 09/22/16 09/23/16 Unknown History Trazodone HCl 150 mg PO QHS 09/22/16 09/23/16 Unknown History Ziprasidone HCl [Geodon] 80 mg PO BID 09/22/16 09/23/16 Unknown History Insulin Detemir [Levemir VIAL] 25 unit SQ QHS #1 vial 09/23/16 Unknown Rx Insulin Aspart [NovoLOG Flexpen] 1 dose SQ AC PRN #1 pen 09/24/16 Unknown Rx Insulin Glargine [Lantus VIAL] 25 unit SUB-Q QHS 30 Days units 09/24/16 Unknown Rx Nicotine [Habitrol] 21 mg TD QDAY #30 patch 09/24/16 Unknown Rx Insulin Regular, Human [HumuLIN R] 100 unit SQ AC #1 units 04/02/17 Unknown Rx Syringe-Needle,Insulin,0.5 ml 1 each MC UNK 30 Days #100 04/10/17 Unknown Rx [Insulin Syringe/Needle 0.5 ML] disp.syrin ED Physical Exam - General Limitations: No Limitations General appearance: alert, in no apparent distress - Head Head exam: Present: atraumatic, normocephalic, normal inspection - Eye Eye exam: Present: normal appearance, PERRL, EOMI Pupils: Present: normal accommodation - ENT ENT exam: Present: normal exam, normal orophraynx, mucous membranes moist - Neck Neck exam: Present: normal inspection, full ROM. Absent: tenderness, meningismus, lymphadenopathy - Respiratory Respiratory exam: Present: normal lung sounds bilaterally. Absent: respiratory distress, chest wall tenderness - Cardiovascular Cardiovascular Exam: Present: regular rate, normal rhythm, normal heart sounds. Absent: systolic murmur, diastolic murmur - Extremities Exam Extremities exam: Present: normal inspection, full ROM, normal capillary refill , other (no clubbing, cyanosis or edema. Positive pulses all extremities. No neurovascular compromise.). Absent: tenderness, pedal edema, joint swelling, calf tenderness - Neurological Exam Neurological exam: Present: alert, oriented X3, normal gait, reflexes normal. Absent: motor sensory deficit - Psychiatric Psychiatric exam: Present: normal affect, normal mood - Skin Skin exam: Present: warm, dry, intact, normal color. Absent: rash ED Course Vital Signs 04/10/17 11:41 Temperature 97.9 F Pulse Rate 100 H Respiratory 16 Rate Blood Pressure 125/82 Blood Pressure 125/82 [Right] O2 Sat by Pulse 99 Oximetry - Reevaluation(s) Reevaluation #1: 04/10/17 13:57 stable during ED stay ED Recheck MDM - Medical Decision Making ED course: Patient request and needles refill on her insulin. She states that she ran out. Patient is asymptomatic with blood glucose of 211. She states that she hasn't been able to take her insulin because she ran out of the needles and requested a refill. She is also requesting that her U Parvin be changed to Humalog and I discussed with her that she needs to talk to her primary care physician regarding this. I discussed with her that I'll only refill her needles and she'll need to schedule an appointment with her primary care physician for evaluation and management of her diabetes. Patient was understanding and discharged home a prescription for refill on insulin needles. Critical care attestation.: If time is entered above; I have spent that time in minutes in the direct care of this critically ill patient, excluding procedure time. ED Disposition Clinical Impression: Encounter for medication refill, Hyperglycemia without ketosis Disposition: DC-01 TO HOME OR SELFCARE Is pt being admited?: No Does the pt Need Aspirin: No Condition: Stable Instructions: Diabetic Hyperglycemia (ED) Additional Instructions: Please follow-up with your primary care physician to manage her diabetes. Take insulin after your needles are refilled. Prescriptions: Syringe-Needle,Insulin,0.5 ml [Insulin Syringe/Needle 0.5 ML] 1 each UNK 30 Days #100 disp.bharatiin Referrals: PRIMARY CARE, [Primary Care Provider] - 24 Hours
== END 2017-04-10 14:18 | disposition home or self-care (01) ==
LOC: ED 11:37
DX: E11.65 Type 2 diabetes mellitus with hyperglycemia (principal); Z91.012 Allergy to eggs; Z88.5 Allergy status to narcotic agent; F31.9 Bipolar disorder, unspecified; F17.200 Nicotine dependence, unspecified, uncomplicated; F12.10 Cannabis abuse, uncomplicated; Z79.4 Long term (current) use of insulin
CPT/HCPCS: 82962; 99282

== ENCOUNTER 2017-05-26 06:19 | Emergency (ER) | payer MEDICARE ==
[2017-05-26 07:01] VITALS: BP 124/66
[2017-05-26 07:31] LABS: Bacteria,Urine 2+ /HPF (Negative); Bilirubin,Urine NEG (Negative); Blood,Urine MOD (Negative); Color,Urine Yellow (Yellow); Mucus,Urine FEW /HPF; Urobilinogen,Urine < 2.0 mg/dL (<2.0)
[2017-05-26 07:39] LABS: RBC,Urine > 182.0 /HPF (0.0-6.0)
[2017-05-26 07:40] LABS: WBC,Urine > 182.0 /HPF (0.0-6.0)
[2017-05-26 07:42] LABS: HCG Qualitative,Urine Negative (Negative)
== END 2017-05-26 12:05 | disposition left against medical advice (07) ==
LOC: ED 06:19
DX: N89.8 Other specified noninflammatory disorders of vagina (principal); Z53.21 Procedure and treatment not carried out due to patient leaving prior to being seen by health care provider
CPT/HCPCS: 81001; 81025

== ENCOUNTER 2017-05-26 11:04 | Emergency (ER) | payer MEDICARE ==
[2017-05-26 11:30] VITALS: BP 143/84
--- NOTE | 2017-05-26 14:11 | Emergency Department Report ---
Blank Doc - Documentation Documentation: Is a 37-year-old female who is presenting with dysuria and vaginal discharge for approximately 3 weeks. Patient is worried about STDs. Patient will have a urinalysis tests ordered and will be moved to the treatment room for pelvic exam.
--- NOTE | 2017-05-26 14:37 | Emergency Department Report ---
ED Female HPI - General Chief complaint: Urogenital-Female Stated complaint: VAGINAL DISCHARGE Time Seen by Provider: 05/26/17 14:07 Source: patient Mode of arrival: Ambulatory Limitations: No Limitations - History of Present Illness Initial comments: Patient is a 37-year-old female with a history of hidradenitis suppuritiva who presents to the ED complaining of urinary pain and vaginal discharge 2 weeks. Patient states she was in a mental health facility and was given some antibiotics 2 weeks ago. Patient admits to having unprotected sexual intercourse sometime ago. Patient states she was given some clindamycin she took with no relief. She admits vaginal irritation and itching. She states discharge remains greenish, copious vaginal discharge. She denies vaginal bleed , pelvic pain, MD Complaint: vaginal discharge - Related Data Home Medications Medication Instructions Recorded Confirmed Last Taken Duloxetine HCl [Cymbalta] 90 mg PO DAILY 09/22/16 09/23/16 Unknown Pregabalin [Lyrica] 300 mg PO BID 09/22/16 09/23/16 Unknown Trazodone HCl 150 mg PO QHS 09/22/16 09/23/16 Unknown Ziprasidone HCl [Geodon] 80 mg PO BID 09/22/16 09/23/16 Unknown Previous Rx's Medication Instructions Recorded Last Taken Type Insulin Detemir [Levemir VIAL] 25 unit SQ QHS #1 vial 09/23/16 Unknown Rx Insulin Aspart [NovoLOG Flexpen] 1 dose SQ AC PRN #1 pen 09/24/16 Unknown Rx Insulin Glargine [Lantus VIAL] 25 unit SUB-Q QHS 30 Days units 09/24/16 Unknown Rx Nicotine [Habitrol] 21 mg TD QDAY #30 patch 09/24/16 Unknown Rx Insulin Regular, Human [HumuLIN R] 100 unit SQ AC #1 units 04/02/17 Unknown Rx Syringe-Needle,Insulin,0.5 ml 1 each MC UNK 30 Days #100 04/10/17 Unknown Rx [Insulin Syringe/Needle 0.5 ML] disp.syrin Ibuprofen [Motrin] 800 mg PO Q8HR PRN #20 tablet 05/26/17 Unknown Rx Sulfamethoxazole/Trimethoprim 1 each PO BID #14 tablet 05/26/17 Unknown Rx [Bactrim DS TAB] Allergies Allergy/AdvReac Type Severity Reaction Status Date / Time egg Allergy Hives Verified 04/02/17 13:13 tramadol HCl [From Ultram] Allergy Hives Verified 04/02/17 13:13 vancomycin Allergy Hives Verified 04/02/17 13:13 ED Review of Systems ROS: Stated complaint: VAGINAL DISCHARGE Other details as noted in HPI Constitutional: denies: chills, fever Eyes: denies: eye pain, eye discharge, vision change ENT: denies: ear pain, throat pain Respiratory: denies: cough, shortness of breath, wheezing Cardiovascular: denies: chest pain, palpitations Endocrine: no symptoms reported Gastrointestinal: denies: abdominal pain, nausea, diarrhea Genitourinary: denies: urgency, dysuria, discharge Musculoskeletal: denies: back pain, joint swelling, arthralgia Skin: denies: rash, lesions Neurological: denies: headache, weakness, paresthesias Psychiatric: denies: anxiety, depression Hematological/Lymphatic: denies: easy bleeding, easy bruising ED Past Medical Hx - Past Medical History Hx Hypertension: No Hx CVA: No Hx Heart Attack/AMI: No Hx Congestive Heart Failure: No Hx Diabetes: Yes (Type 2) Hx Deep Vein Thrombosis: No Hx Pulmonary Embolism: No Hx GERD: No Hx Liver Disease: No Hx Renal Disease: No Hx Sickle Cell Disease: No Hx Arthritis: No Hx Headaches / Migraines: No Hx Seizures: No Hx Kidney Stones: No Hx Psychiatric Treatment: Yes (BIPOLAR Boderline personality) Hx Asthma: No Hx COPD: No Hx Tuberculosis: No Hx Dementia: No Hx HIV: No Additional medical history: LUPUS, Hydroadenitis - Surgical History Hx Coronary Stent: No Hx Open Heart Surgery: No Hx Pacemaker: No Hx Internal Defibrillator: No Hx Cholecystectomy: No Hx Appendectomy: No Hx Breast Surgery: Yes Additional Surgical History: Breast reduction bilateral,excisional surg. for abscess - Social History Smoking Status: Current Every Day Smoker Substance Use Type: None - Medications Home Medications: Home Medications Medication Instructions Recorded Confirmed Last Taken Type Duloxetine HCl [Cymbalta] 90 mg PO DAILY 09/22/16 09/23/16 Unknown History Pregabalin [Lyrica] 300 mg PO BID 09/22/16 09/23/16 Unknown History Trazodone HCl 150 mg PO QHS 09/22/16 09/23/16 Unknown History Ziprasidone HCl [Geodon] 80 mg PO BID 09/22/16 09/23/16 Unknown History Insulin Detemir [Levemir VIAL] 25 unit SQ QHS #1 vial 09/23/16 Unknown Rx Insulin Aspart [NovoLOG Flexpen] 1 dose SQ AC PRN #1 pen 09/24/16 Unknown Rx Insulin Glargine [Lantus VIAL] 25 unit SUB-Q QHS 30 Days units 09/24/16 Unknown Rx Nicotine [Habitrol] 21 mg TD QDAY #30 patch 09/24/16 Unknown Rx Insulin Regular, Human [HumuLIN R] 100 unit SQ AC #1 units 04/02/17 Unknown Rx Syringe-Needle,Insulin,0.5 ml 1 each MC UNK 30 Days #100 04/10/17 Unknown Rx [Insulin Syringe/Needle 0.5 ML] disp.syrin Ibuprofen [Motrin] 800 mg PO Q8HR PRN #20 tablet 05/26/17 Unknown Rx Sulfamethoxazole/Trimethoprim 1 each PO BID #14 tablet 05/26/17 Unknown Rx [Bactrim DS TAB] ED Physical Exam - General Limitations: No Limitations General appearance: alert, in no apparent distress - Head Head exam: Present: atraumatic, normocephalic - Eye Eye exam: Present: normal appearance - ENT ENT exam: Present: mucous membranes moist - Neck Neck exam: Present: normal inspection - Respiratory Respiratory exam: Present: normal lung sounds bilaterally. Absent: respiratory distress - Cardiovascular Cardiovascular Exam: Present: regular rate, normal rhythm. Absent: systolic murmur, diastolic murmur, rubs, gallop - GI/Abdominal GI/Abdominal exam: Present: soft, normal bowel sounds. Absent: distended, tenderness - External exam: Present: lesions (old healed scars from surgery/HS). Absent: lacerations, bleeding Speculum exam: Present: erythema, vaginal discharge (greenish mal), cervical discharge. Absent: vaginal bleeding Bi-manual exam: Present: cervical motion tendernes, other. Absent: adnexal tenderness, adnexal mass (Vaginal tenderness), uterine enlargement, uterine tenderness - Extremities Exam Extremities exam: Present: normal inspection - Back Exam Back exam: Present: normal inspection - Neurological Exam Neurological exam: Present: alert, oriented X3 - Psychiatric Psychiatric exam: Present: normal affect, normal mood - Skin Skin exam: Present: warm, dry, intact, normal color. Absent: rash ED Course Vital Signs 05/26/17 11:27 Temperature 98.1 F Pulse Rate 110 H Respiratory 18 Rate Blood Pressure 143/84 O2 Sat by Pulse 98 Oximetry ED Medical Decision Making - Medical Decision Making 37-year-old female presents with STD and uti. ED course: urinalysis and gonorrhea and Chlamydia cultures obtained. Urinalysis positive for leukorrhea, bacteria Patient received 250 mg of Rocephin, azithromycin 1 g, Flagyl 2 g and norco for pain Wet prep Positive for trichomoniasis Discussed with patient STD due to exposure. Discussed with patient findings and treatment Discussed prophylaxis treatment patient is to abstain from sex 7-10 days as treatment. Discussed patient partner knowledge and treatment. Discussed the follow-up with the health department for further STD testing. Patient's alert and oriented times 3. Vital signs are normal patient is in no acute discharge. Patient will be discharged home with instructions. Critical care attestation.: If time is entered above; I have spent that time in minutes in the direct care of this critically ill patient, excluding procedure time. ED Disposition Clinical Impression: Trichomonal cervicitis, STD (sexually transmitted disease) UTI (urinary tract infection) Qualifiers: Urinary tract infection type: acute cystitis Hematuria presence: with hematuria Qualified Code(s): N30.01 - Acute cystitis with hematuria Disposition: TO HOME OR SELFCARE Is pt being admited?: No Does the pt Need Aspirin: No Condition: Stable Instructions: Cervicitis (ED), Sexually Transmitted Diseases (ED), Safe Sex (ED ), Trichomoniasis (ED) Additional Instructions: Make sure to follow up with the primary care physician as discussed. Take all your medications as you've been prescribed. If you have any worsening symptoms or develop new symptoms please return to ED immediately. Prescriptions: Ibuprofen [Motrin] 800 mg PO Q8HR PRN #20 tablet PRN Reason: Pain Sulfamethoxazole/Trimethoprim [Bactrim DS TAB] 1 each PO BID #14 tablet Referrals: DURAN STRICKLAND MD [Primary Care Provider] - 3-5 Days [facility] [Outside] - 3-5 Days [facility] [Outside] - 3-5 Days [facility] [Outside] - 3-5 Days [facility] [Outside] - 3-5 Days [facility] [Outside] - 3-5 Days Forms: STI Treatment and Prevention, Work/School Release Form(ED) Time of Disposition: 16:43
[2017-05-26] MEDS ORDERED: ROCEPHIN IM ONE (15:13)
[2017-05-26] MEDS ORDERED: ZITHROMAX PO ONE (15:13)
[2017-05-26] MEDS ORDERED: NORCO 5/325 PO ONE (15:13)
[2017-05-26] MEDS ORDERED: XYLOCAINE 1% MPF 5 mL INFILTRATI ONE (15:13)
[2017-05-26] MEDS ORDERED: FLAGYL PO ONE (15:13)
[2017-05-26 15:21] LABS: Bacteria,Urine 1+ /HPF (Negative); Bilirubin,Urine NEG (Negative); Blood,Urine NEG (Negative); Color,Urine Yellow (Yellow); Mucus,Urine FEW /HPF; Protein,Urine <15 mg/dL mg/dL (Negative); Urobilinogen,Urine < 2.0 mg/dL (<2.0)
[2017-05-26 15:22] LABS: HCG Qualitative,Urine Negative (Negative)
== END 2017-05-26 16:58 | disposition home or self-care (01) ==
LOC: ED 11:04
DX: A59.09 Other urogenital trichomoniasis (principal); A64 Unspecified sexually transmitted disease; N30.01 Acute cystitis with hematuria; E11.9 Type 2 diabetes mellitus without complications; F31.9 Bipolar disorder, unspecified; M32.9 Systemic lupus erythematosus, unspecified; F17.200 Nicotine dependence, unspecified, uncomplicated; Z79.4 Long term (current) use of insulin
CPT/HCPCS: 81001; 81025; 87210; 87591; 96372; 99283; J0696

== ENCOUNTER 2017-06-11 17:19 | Inpatient (IN) | payer MEDICARE ==
[2017-06-11] MEDS ORDERED: ASPIRIN PO ONE (17:30)
[2017-06-11 17:44] LABS: Basophils % (Auto) 0.4 % (0.0-1.8); Eosinophils # (Auto) 0.2 K/mm3 (0.0-0.4); Eosinophils % (Auto) 1.9 % (0.0-4.3); Hemoglobin 10.7 gm/dl (10.1-14.3); Lymphocytes # (Auto) 4.1 K/mm3 (1.2-5.4); Lymphocytes % (Auto) 32.9 % (13.4-35.0); Mean Corpuscular HGB Conc 32 % (30-34); Mean Corpuscular Hemoglobin 24 pg (28-32); Mean Corpuscular Volume 76 fl (79-97); Monocytes # (Auto) 0.8 K/mm3 (0.0-0.8); Monocytes % (Auto) 6.8 % (0.0-7.3); Platelet Count 430 K/mm3 (140-440); Red Blood Count 4.47 M/mm3 (3.65-5.03); Red Cell Distribution Width 17.8 % (13.2-15.2)
[2017-06-11 17:56] LABS: BUN/Creatinine Ratio 11; Blood Urea Nitrogen 8 mg/dL (7-17); Hemolysis Index 2
[2017-06-11] MEDS ORDERED: MORPHINE IV ONE (17:57)
[2017-06-11] MEDS ORDERED: ZOFRAN IV ONE (17:58)
--- NOTE | 2017-06-11 18:03 | Emergency Department Report ---
ED Chest Pain HPI - General Chief Complaint: Chest Pain Stated Complaint: CHEST PAIN Time Seen by Provider: 06/11/17 17:52 Source: patient Mode of arrival: Ambulatory Limitations: No Limitations - History of Present Illness Initial Comments: This is a 37-year-old female who had a recent cardiac event 2 weeks ago with stent placement at [facility] and who is a one pack per day smoker for 20 years and is still smoking and also partakes and marijuana use who presents with a one day history of chest pain described as crushing and constant and radiates to the left arm. She came by POV she states that she took 4 nitroglycerin and 1 baby aspirin today and her Plavix. She admits to not being compliant with her Plavix because she thinks that it interacts with her marijuana use. She admits also to being short of breath and having nausea and no vomiting and no abdominal pain. She admits to some loose stools and has had a headache for 2 days. She has a past medical history significant also for lupus hydradenitis as well as diabetes type 2 for which she also takes insulin, as well as hypertension and she has had a breast reduction surgery. She denies other symptoms. MD Complaint: chest pain -: Gradual, days(s) (1) Onset: during rest Pain Location: substernal Pain Radiation: LUE Severity: moderate Quality: tightness, heaviness Consistency: constant Improves With: nothing Worsens With: exertion Context: other (recent cardiac catheterization with stent placement) re: nausea. denies: vomting, diaphoresis, dyspnea Other Symptoms: denies: cough, fever, syncope, rash, acid taste in mouth, leg swelling, palpitations, burping Treatments Prior to Arrival: aspirin, nitroglycerin - Related Data Home Medications Medication Instructions Recorded Confirmed Last Taken Duloxetine HCl [Cymbalta] 90 mg PO DAILY 09/22/16 09/23/16 Unknown Pregabalin [Lyrica] 300 mg PO BID 09/22/16 09/23/16 Unknown Trazodone HCl 150 mg PO QHS 09/22/16 09/23/16 Unknown Ziprasidone HCl [Geodon] 80 mg PO BID 09/22/16 09/23/16 Unknown Previous Rx's Medication Instructions Recorded Last Taken Type Insulin Detemir [Levemir VIAL] 25 unit SQ QHS #1 vial 09/23/16 Unknown Rx Insulin Aspart [NovoLOG Flexpen] 1 dose SQ AC PRN #1 pen 09/24/16 Unknown Rx Insulin Glargine [Lantus VIAL] 25 unit SUB-Q QHS 30 Days units 09/24/16 Unknown Rx Nicotine [Habitrol] 21 mg TD QDAY #30 patch 09/24/16 Unknown Rx Insulin Regular, Human [HumuLIN R] 100 unit SQ AC #1 units 04/02/17 Unknown Rx Syringe-Needle,Insulin,0.5 ml 1 each MC UNK 30 Days #100 04/10/17 Unknown Rx [Insulin Syringe/Needle 0.5 ML] disp.syrin Ibuprofen [Motrin] 800 mg PO Q8HR PRN #20 tablet 05/26/17 Unknown Rx Sulfamethoxazole/Trimethoprim 1 each PO BID #14 tablet 05/26/17 Unknown Rx [Bactrim DS TAB] Allergies Allergy/AdvReac Type Severity Reaction Status Date / Time egg Allergy Hives Verified 04/02/17 13:13 tramadol HCl [From Ultram] Allergy Hives Verified 04/02/17 13:13 vancomycin Allergy Hives Verified 04/02/17 13:13 Heart Score - HEART Score History: Highly suspicious EKG: Non-specific Age: < 45 Risk factors: > 3 risk factors or hx of atherosclerotic disease Troponin: < normal limit HEART Score: 5 ED Review of Systems ROS: Stated complaint: CHEST PAIN Other details as noted in HPI Comment: All other systems reviewed and negative Constitutional: see HPI Eyes: as per HPI ENT: as per HPI Respiratory: see HPI Cardiovascular: as per HPI Endocrine: see HPI Gastrointestinal: as per HPI Genitourinary: as per HPI Musculoskeletal: as per HPI Skin: as per HPI Neurological: as per HPI Psychiatric: as per HPI Hematological/Lymphatic: as per HPI ED Past Medical Hx - Past Medical History Hx Hypertension: No Hx CVA: No Hx Heart Attack/AMI: No Hx Congestive Heart Failure: No Hx Diabetes: Yes (Type 2) Hx Deep Vein Thrombosis: No Hx Pulmonary Embolism: No Hx GERD: No Hx Liver Disease: No Hx Renal Disease: No Hx Sickle Cell Disease: No Hx Arthritis: No Hx Headaches / Migraines: No Hx Seizures: No Hx Kidney Stones: No Hx Psychiatric Treatment: Yes (BIPOLAR Boderline personality) Hx Asthma: No Hx COPD: No Hx Tuberculosis: No Hx Dementia: No Hx HIV: No Additional medical history: LUPUS, Hydroadenitis - Surgical History Hx Coronary Stent: No Hx Open Heart Surgery: No Hx Pacemaker: No Hx Internal Defibrillator: No Hx Cholecystectomy: No Hx Appendectomy: No Hx Breast Surgery: Yes Additional Surgical History: Breast reduction bilateral,excisional surg. for abscess - Social History Smoking Status: Current Every Day Smoker Substance Use Type: None - Medications Home Medications: Home Medications Medication Instructions Recorded Confirmed Last Taken Type Duloxetine HCl [Cymbalta] 90 mg PO DAILY 09/22/16 09/23/16 Unknown History Pregabalin [Lyrica] 300 mg PO BID 09/22/16 09/23/16 Unknown History Trazodone HCl 150 mg PO QHS 09/22/16 09/23/16 Unknown History Ziprasidone HCl [Geodon] 80 mg PO BID 09/22/16 09/23/16 Unknown History Insulin Detemir [Levemir VIAL] 25 unit SQ QHS #1 vial 09/23/16 Unknown Rx Insulin Aspart [NovoLOG Flexpen] 1 dose SQ AC PRN #1 pen 09/24/16 Unknown Rx Insulin Glargine [Lantus VIAL] 25 unit SUB-Q QHS 30 Days units 09/24/16 Unknown Rx Nicotine [Habitrol] 21 mg TD QDAY #30 patch 09/24/16 Unknown Rx Insulin Regular, Human [HumuLIN R] 100 unit SQ AC #1 units 04/02/17 Unknown Rx Syringe-Needle,Insulin,0.5 ml 1 each MC UNK 30 Days #100 04/10/17 Unknown Rx [Insulin Syringe/Needle 0.5 ML] disp.syrin Ibuprofen [Motrin] 800 mg PO Q8HR PRN #20 tablet 05/26/17 Unknown Rx Sulfamethoxazole/Trimethoprim 1 each PO BID #14 tablet 05/26/17 Unknown Rx [Bactrim DS TAB] ED Physical Exam - General Limitations: No Limitations General appearance: alert, in no apparent distress - Head Head exam: Present: atraumatic, normocephalic, normal inspection - Eye Eye exam: Present: normal appearance, PERRL, EOMI - ENT ENT exam: Present: normal exam - Neck Neck exam: Present: normal inspection, full ROM. Absent: tenderness - Respiratory Respiratory exam: Present: normal lung sounds bilaterally, chest wall tenderness (mild tenderness to palpation of the anterior chest wall). Absent: respiratory distress, wheezes, rales, rhonchi - Cardiovascular Cardiovascular Exam: Present: regular rate, normal rhythm, normal heart sounds - GI/Abdominal GI/Abdominal exam: Present: soft, normal bowel sounds - Rectal Rectal exam: Present: deferred - Extremities Exam Extremities exam: Present: normal inspection, full ROM, normal capillary refill - Back Exam Back exam: Present: normal inspection - Neurological Exam Neurological exam: Present: alert, oriented X3, CN II-XII intact - Psychiatric Psychiatric exam: Present: normal affect, normal mood - Skin Skin exam: Present: warm, dry, intact, normal color ED Course Vital Signs 06/11/17 06/11/17 06/11/17 17:28 17:36 18:00 Temperature 97.9 F Pulse Rate 92 H 84 86 Respiratory 18 20 13 Rate Blood Pressure 139/82 112/71 O2 Sat by Pulse 97 99 Oximetry 06/11/17 18:30 Temperature Pulse Rate 74 Respiratory 20 Rate Blood Pressure 103/73 O2 Sat by Pulse 99 Oximetry - Reevaluation(s) Reevaluation #1: 06/11/17 18:03 Due to the patient's recent cardiac event, we will go ahead and work up the patient accordingly. I'll also go ahead and get a d-dimer as well. The patient is currently stable at this time, her EKG does not reveal any new ST changes. T-wave inversions however are appreciated in leads 2 and 3 and flattened T waves in the precordial leads. Vital signs are stable. Labs pending. 06/11/17 20:02 Her first set of troponin is negative. Her d-dimer is elevated however she is not tachycardic nor does she have a fever at this time. I discussed the case with the on-call hospitalist, they will determine whether the patient needs to have a CT angiogram to determine if there is a pulmonary embolism or not. At this time the probability seems equivocal. We will however go ahead and admit the patient for chest pain to rule out an acute coronary syndrome. ED Medical Decision Making - Lab Data Result diagrams: 06/11/17 17:31 06/11/17 17:31 Critical care attestation.: If time is entered above; I have spent that time in minutes in the direct care of this critically ill patient, excluding procedure time. ED Disposition Clinical Impression: Chest pain in adult Disposition: DC-09 OP ADMIT IP TO THIS HOSP Is pt being admited?: Yes Does the pt Need Aspirin: No Condition: Stable Instructions: Chest Pain (ED)
[2017-06-11] MEDS ORDERED: MORPHINE ONE (18:36)
[2017-06-11 19:48] LABS: Amphetamine Screen,Urine PRESUMPTIVE NEGATIVE; Benzodiazepines Screen,Urine PRESUMPTIVE NEGATIVE; Cocaine Screen,Urine PRESUMPTIVE NEGATIVE; Methadone Screen,Urine PRESUMPTIVE NEGATIVE; Opiate Screen,Urine PRESUMPTIVE NEGATIVE
[2017-06-11 19:50] LABS: Bacteria,Urine 1+ /HPF (Negative); Bilirubin,Urine NEG (Negative); Blood,Urine NEG (Negative); Color,Urine Straw (Yellow); Protein,Urine <15 mg/dL mg/dL (Negative); RBC,Urine < 1.0 /HPF (0.0-6.0); Urobilinogen,Urine < 2.0 mg/dL (<2.0); WBC,Urine < 1.0 /HPF (0.0-6.0)
[2017-06-11 20:11] LABS: Cannabinoid Screen,Urine PRESUMPTIVE POSITIVE
--- NOTE | 2017-06-11 20:15 | XRay Report ---
FINAL REPORT EXAM: XR CXR AP & LAT CLINICAL INDICATIONS: CP FINDINGS: Frontal and lateral views of the chest were acquired. The heart is normal in size. The lungs appear clear. The pleura and mediastinum are within normal limits. IMPRESSION: NO ACTIVE DISEASE IN THE CHEST
[2017-06-11] MEDS ORDERED: SODIUM CHLORIDE FLUSH SYRINGE 10 ML IV PRN (21:28)
[2017-06-11] MEDS ORDERED: TYLENOL PO PRN (21:28)
[2017-06-11] MEDS ORDERED: DILAUDID IV PRN (21:28)
[2017-06-11] MEDS ORDERED: ZOFRAN IV PRN (21:28)
--- NOTE | 2017-06-11 21:28 | History and Physical Report ---
History of Present Illness Date of examination: 06/11/17 Date of admission: 06/11/17 20:04 Chief complaint: L sided CP 1 day History of present illness: History of Present Illness This is a 37-year-old female who had a recent cardiac event 2 weeks ago with stent placement at [facility] and who is a one pack per day smoker for 20 years and is still smoking and also partakes in marijuana use who presents with a one day history of chest pain described as crushing and constant and radiates to the left arm. She came by POV she states that she took 4 nitroglycerin and 1 baby aspirin today and her Plavix. She admits to not being compliant with her Plavix because she thinks that it interacts with her marijuana use. She admits also to being short of breath and having nausea and no vomiting and no abdominal pain. She admits to some loose stools and has had a headache for 2 days. She has a past medical history significant also for lupus hydradenitis as well as diabetes type 2 for which she also takes insulin, as well as hypertension and she has had a breast reduction surgery. She denies other symptoms. Past Medical History Hx Hypertension: Yes Hx Diabetes: Yes (Type 2) Hx Psychiatric Treatment: Yes (BIPOLAR Boderline personality) Additional medical history: LUPUS, Hydroadenitis Surgical History Hx Coronary Stent: Yes Hx Breast Surgery: Yes Additional Surgical History: Breast reduction bilateral,excisional surg. for abscess Social History Smoking Status: Current Every Day Smoker Substance Use Type: None Family Hx Htn - Medications Home Medications: Home Medications Medication Instructions Recorded Confirmed Last Taken Type Duloxetine HCl [Cymbalta] 90 mg PO DAILY 09/22/16 09/23/16 Unknown History Pregabalin [Lyrica] 300 mg PO BID 09/22/16 09/23/16 Unknown History Trazodone HCl 150 mg PO QHS 09/22/16 09/23/16 Unknown History Ziprasidone HCl [Geodon] 80 mg PO BID 09/22/16 09/23/16 Unknown History Insulin Detemir [Levemir VIAL] 25 unit SQ QHS #1 vial 09/23/16 Unknown Rx Insulin Aspart [NovoLOG Flexpen] 1 dose SQ AC PRN #1 pen 09/24/16 Unknown Rx Insulin Glargine [Lantus VIAL] 25 unit SUB-Q QHS 30 Days units 09/24/16 Unknown Rx Nicotine [Habitrol] 21 mg TD QDAY #30 patch 09/24/16 Unknown Rx Insulin Regular, Human [HumuLIN R] 100 unit SQ AC #1 units 04/02/17 Unknown Rx Syringe-Needle,Insulin,0.5 ml 1 each UNK 30 Days #100 04/10/17 Unknown Rx [Insulin Syringe/Needle 0.5 ML] disp.syrin Ibuprofen [Motrin] 800 mg PO Q8HR PRN #20 tablet 05/26/17 Unknown Rx Sulfamethoxazole/Trimethoprim 1 each PO BID #14 tablet 05/26/17 Unknown Rx [Bactrim DS TAB] Medications and Allergies Allergies Allergy/AdvReac Type Severity Reaction Status Date / Time egg Allergy Hives Verified 04/02/17 13:13 tramadol HCl [From Ultram] Allergy Hives Verified 04/02/17 13:13 vancomycin Allergy Hives Verified 04/02/17 13:13 Home Medications Medication Instructions Recorded Confirmed Last Taken Type Duloxetine HCl [Cymbalta] 90 mg PO DAILY 09/22/16 09/23/16 Unknown History Pregabalin [Lyrica] 300 mg PO BID 09/22/16 09/23/16 Unknown History Trazodone HCl 150 mg PO QHS 09/22/16 09/23/16 Unknown History Ziprasidone HCl [Geodon] 80 mg PO BID 09/22/16 09/23/16 Unknown History Insulin Detemir [Levemir VIAL] 25 unit SQ QHS #1 vial 09/23/16 Unknown Rx Insulin Aspart [NovoLOG Flexpen] 1 dose SQ AC PRN #1 pen 09/24/16 Unknown Rx Insulin Glargine [Lantus VIAL] 25 unit SUB-Q QHS 30 Days units 09/24/16 Unknown Rx Nicotine [Habitrol] 21 mg TD QDAY #30 patch 09/24/16 Unknown Rx Insulin Regular, Human [HumuLIN R] 100 unit SQ AC #1 units 04/02/17 Unknown Rx Syringe-Needle,Insulin,0.5 ml 1 each UN 30 Days #100 04/10/17 Unknown Rx [Insulin Syringe/Needle 0.5 ML] disp.syrin Ibuprofen [Motrin] 800 mg PO Q8HR PRN #20 tablet 05/26/17 Unknown Rx Sulfamethoxazole/Trimethoprim 1 each PO BID #14 tablet 05/26/17 Unknown Rx [Bactrim DS TAB] Review of Systems All systems: negative Constitutional: no weight loss, no weight gain, no fever, no chills Ears, nose, mouth and throat: no sore throat, no swelling in mouth Breasts: deferred Cardiovascular: chest pain, dyspnea on exertion Respiratory: no cough, no cough with sputum, no excessive sputum, no shortness of breath, no dyspnea on exertion Gastrointestinal: no abdominal pain, no nausea, no vomiting, no diarrhea, no constipation, no change in bowel habits, no hematemesis, no coffee ground emesis Musculoskeletal: no neck stiffness, no neck pain, no shooting arm pain, no arm numbness/tingling Integumentary: no rash, no pruritis, no redness, no sores, no wounds, no jaundice, no boils, no blisters Neurological: no seizures, no syncope, no lack of coordination Psychiatric: no anxiety, no memory loss, no change in sleep habits Endocrine: no cold intolerance, no heat intolerance, no polyphagia Hematologic/Lymphatic: no easy bruising, no easy bleeding Allergic/Immunologic: no urticaria, no allergic rhinitis, no wheezing Exam - Constitutional Vitals: Temp Pulse Resp BP Pulse Ox 97.9 F 74 20 103/73 99 06/11/17 17:28 06/11/17 18:30 06/11/17 18:30 06/11/17 18:30 06/11/17 18:30 General appearance: Present: no acute distress, well-nourished - EENT Eyes: Present: PERRL ENT: hearing intact, clear oral mucosa - Neck Neck: Present: supple, normal ROM - Respiratory Respiratory effort: normal Respiratory: bilateral: CTA - Cardiovascular Heart rate: 80 Rhythm: regular Heart Sounds: Present: S1 & S2. Absent: rub, click - Extremities Extremities: pulses symmetrical, No edema Peripheral Pulses: within normal limits - Abdominal General gastrointestinal: Present: soft, non-tender, non-distended, normal bowel sounds Female genitourinary: Present: normal - Rectal Rectal Exam: deferred - Integumentary Integumentary: Present: clear, warm, dry - Musculoskeletal Musculoskeletal: gait normal, strength equal bilaterally - Psychiatric Psychiatric: appropriate mood/affect, intact judgment & insight - Neurologic Neurologic: CNII-XII intact, moves all extremities - Allied Health Allied health notes reviewed: nursing, case management Results - Labs CBC & Chem 7: 06/11/17 17:31 06/11/17 17:31 Labs: Laboratory Last Values WBC 12.3 K/mm3 (4.5-11.0) H 06/11/17 17:31 RBC 4.47 M/mm3 (3.65-5.03) 06/11/17 17: Hgb 10.7 gm/dl (10.1-14.3) 06/11/17 17: Hct 34.0 % (30.3-42.9) 06/11/17 17: MCV 76 fl (79-97) L 06/11/17 17: MCH 24 pg (28-32) L 06/11/17 17: MCHC 32 % (30-34) 06/11/17 17: RDW 17.8 % (13.2-15.2) H 06/11/17 17:31 Plt Count 430 K/mm3 (140-440) 06/11/17 17:31 Lymph % (Auto) 32.9 % (13.4-35.0) 06/11/17 17:31 [place] % (Auto) 6.8 % (0.0-7.3) 06/11/17 17: Eos % (Auto) 1.9 % (0.0-4.3) 06/11/17 17: Baso % (Auto) 0.4 % (0.0-1.8) 06/11/17 17: Lymph # 4.1 K/mm3 (1.2-5.4) 06/11/17 17: [place] # 0.8 K/mm3 (0.0-0.8) 06/11/17 17: Eos # 0.2 K/mm3 (0.0-0.4) 06/11/17 17: Baso # 0.0 K/mm3 (0.0-0.1) 06/11/17 17: Seg Neutrophils % 58.0 % (40.0-70.0) 06/11/17 17: Seg Neutrophils # 7.1 K/mm3 (1.8-7.7) 06/11/17 17:31 D-Dimer 451.88 ng/mlDDU (0-234) H 06/11/17 18:07 Sodium 140 mmol/L (137-145) 06/11/17 17:31 Potassium 3.7 mmol/L (3.6-5.0) 06/11/17 17:31 Chloride 101.3 mmol/L (98-107) 06/11/17 17:31 Carbon Dioxide 22 mmol/L (22-30) 06/11/17 17:31 Anion Gap 20 mmol/L 06/11/17 17:31 BUN 8 mg/dL (7-17) 06/11/17 17:31 Creatinine 0.7 mg/dL (0.7-1.2) 06/11/17 17:31 Estimated GFR > 60 ml/min 06/11/17 17:31 BUN/Creatinine Ratio 11 % 06/11/17 17:31 Glucose 124 mg/dL (65-100) H 06/11/17 17:31 Calcium 9.0 mg/dL (8.4-10.2) 06/11/17 17:31 Troponin T 0.014 ng/mL (0.00-0.029) 06/11/17 20:14 Urine Color Straw (Yellow) 06/11/17 19:29 Urine Turbidity Clear (Clear) 06/11/17 19:29 Urine pH 7.0 (5.0-7.0) 06/11/17 19:29 Ur Specific [place] 1.006 (1.003-1.030) 06/11/17 19:29 Urine Protein <15 mg/dl mg/dL (Negative) 06/11/17 19:29 Urine Glucose (UA) 50 mg/dL (Negative) 06/11/17 19:29 Urine Ketones Neg mg/dL (Negative) 06/11/17 19:29 Urine Blood Neg (Negative) 06/11/17 19:29 Urine Nitrite Neg (Negative) 06/11/17 19:29 Urine Bilirubin Neg (Negative) 06/11/17 19: Urine Urobilinogen < 2.0 mg/dL (<2.0) 06/11/17 19:29 Ur Leukocyte Esterase Neg (Negative) 06/11/17 19:29 Urine WBC (Auto) < 1.0 /HPF (0.0-6.0) 06/11/17 19:29 Urine RBC (Auto) < 1.0 /HPF (0.0-6.0) 06/11/17 19:29 Urine Bacteria (Auto) 1+ /HPF (Negative) 06/11/17 19:29 Urine Opiates Screen Presumptive negative 06/11/17 19:29 Urine Methadone Screen Presumptive negative 06/11/17 19:29 Ur Barbiturates Screen Presumptive negative 06/11/17 19:29 Ur Phencyclidine Scrn Presumptive negative 06/11/17 19:29 Ur Amphetamines Screen Presumptive negative 06/11/17 19:29 U Benzodiazepines Scrn Presumptive negative 06/11/17 19:29 Urine Cocaine Screen Presumptive negative 06/11/17 19:29 U Marijuana (THC) Screen Presumptive positive 06/11/17 19:29 Drugs of Abuse Note Disclamer 06/11/17 19:29 Short CBC 06/11/17 Range/Units 17:31 WBC 12.3 H (4.5-11.0) K/mm3 Hgb 10.7 (10.1-14.3) gm/dl Hct 34.0 (30.3-42.9) % Plt Count 430 (140-440) K/mm3 BMP 06/11/17 17:31 Sodium 140 Potassium 3.7 Chloride 101.3 Carbon Dioxide 22 BUN 8 Creatinine 0.7 Glucose 124 H Calcium 9.0 Cardiac Enzymes 06/11/17 06/11/17 06/11/17 Range/Units 17:31 20:14 21:39 Troponin T 0.016 0.014 < 0.010 (0.00-0.029) ng/mL 06/11/17 Range/Units 23:07 Troponin T 0.013 (0.00-0.029) ng/mL Urine 06/11/17 Range/Units 19:29 Urine Color Straw (Yellow) Urine pH 7.0 (5.0-7.0) Ur Specific [place] 1.006 (1.003-1.030) Urine Protein <15 mg/dl (Negative) mg/dL Urine Glucose (UA) 50 (Negative) mg/dL - Imaging and Cardiology EKG: report reviewed (T wave inversion L 2 L3) Assessment and Plan Advance Directives: Yes (Full code) VTE prophylaxis?: Chemical Plan of care discussed with patient/family: Yes - Patient Problems (1) Chest pain in adult Current Visit: Yes Status: Acute Plan to address problem: Serial CE's and Lexiscan iun Am (2) Lupus (systemic lupus erythematosus) Current Visit: No Status: Chronic Qualifiers: Systemic lupus erythematosus type: unspecified (3) IDDM (insulin dependent diabetes mellitus) Current Visit: Yes Status: Chronic Plan to address problem: Home insulin and coverage Check a1c (4) Peripheral neuropathy Current Visit: Yes Status: Chronic Qualifiers: Peripheral neuropathy type: polyneuropathy, unspecified Qualified Code(s): G62.9 - Polyneuropathy, unspecified Plan to address problem: nt Cymbalta and Lyrica (5) DVT prophylaxis Current Visit: No Status: Acute Plan to address problem: On Heparin
[2017-06-11] MEDS: PERCOCET 5/325 PO PRN (21:43)
[2017-06-11] MEDS: PEPCID PO SCH (21:43)
[2017-06-11] MEDS: SODIUM CHLORIDE FLUSH SYRINGE 10 ML IV SCH (21:46)
[2017-06-11] MEDS ORDERED: HumaLOG SUB-Q ONE (22:00)
[2017-06-11] MEDS: MORPHINE IV PRN (22:03)
[2017-06-11] MEDS: BENADRYL IV PRN (23:48)
[2017-06-12] MEDS: HumaLOG SUB-Q SCH ×5 (00:54→22:58)
[2017-06-12] MEDS ORDERED: MOTRIN PO PRN (07:34)
[2017-06-12] MEDS: MORPHINE IV PRN ×3 (07:43→18:15)
[2017-06-12] MEDS ORDERED: LEXISCAN IV ONE (08:09)
[2017-06-12 08:33] LABS: Basophils % (Auto) 0.5 % (0.0-1.8); Eosinophils # (Auto) 0.3 K/mm3 (0.0-0.4); Eosinophils % (Auto) 2.7 % (0.0-4.3); Hematocrit 32.9 % (30.3-42.9); Hemoglobin 10.3 gm/dl (10.1-14.3); Lymphocytes # (Auto) 3.4 K/mm3 (1.2-5.4); Lymphocytes % (Auto) 35.9 % (13.4-35.0); Mean Corpuscular HGB Conc 31 % (30-34); Mean Corpuscular Volume 76 fl (79-97); Monocytes # (Auto) 0.6 K/mm3 (0.0-0.8); Platelet Count 422 K/mm3 (140-440); Red Blood Count 4.36 M/mm3 (3.65-5.03); Red Cell Distribution Width 17.3 % (13.2-15.2)
[2017-06-12 08:42] LABS: Mean Corpuscular Hemoglobin 24 pg (28-32)
[2017-06-12 08:54] LABS: Alanine Aminotransferase 27 units/L (7-56); Albumin 3.3 g/dL (3.9-5); BUN/Creatinine Ratio 11; Blood Urea Nitrogen 8 mg/dL (7-17); Calcium 8.6 mg/dL (8.4-10.2); Hemolysis Index 3
--- NOTE | 2017-06-12 08:56 | Discharge Summary ---
Providers - Providers Date of Admission: 06/11/17 20:04 Date of discharge: 06/12/17 Attending physician: JOANNE MAYFIELD Primary care physician: RAMÓN WILSON Hospitalization Condition: Stable Hospital course: Discharge diagnosis and management: / Chest pain in adult Serial CE's and Lexiscan iun Am / Lupus (systemic lupus erythematosus) /CAD, cont aspirin, statin, plavix / IDDM (insulin dependent diabetes mellitus) Home insulin and coverage Check a1c /Peripheral neuropathy Cont Cymbalta and Lyrica /DVT prophylaxis On Heparin Disposition: DC- TO HOME OR SELFCARE Time spent for discharge: 32 minutes Core Measure Documentation - Palliative Care Palliative Care/ Comfort Measures: Not Applicable - Core Measures Any of the following diagnoses?: none Exam - Constitutional Vitals: Temp Pulse Resp BP Pulse Ox 99.0 F 69 20 105/47 98 06/11/17 21:36 06/11/17 21:36 06/11/17 21:36 06/11/17 21:36 06/11/17 21:36 General appearance: Present: no acute distress, well-nourished - EENT Eyes: Present: PERRL ENT: hearing intact, clear oral mucosa - Neck Neck: Present: supple, normal ROM - Respiratory Respiratory effort: normal Respiratory: bilateral: CTA - Cardiovascular Heart Sounds: Present: S1 & S2. Absent: rub, click - Extremities Extremities: pulses symmetrical, No edema Peripheral Pulses: within normal limits - Abdominal General gastrointestinal: Present: soft, non-tender, non-distended, normal bowel sounds - Integumentary Integumentary: Present: clear, warm, dry - Musculoskeletal Musculoskeletal: gait normal, strength equal bilaterally - Psychiatric Psychiatric: appropriate mood/affect, intact judgment & insight - Neurologic Neurologic: CNII-XII intact, moves all extremities Plan Activity: advance as tolerated Weight Bearing Status: Non-Weight Bearing Diet: low fat, low salt Follow up with: PRIMARY CARE, [Referring] - 3-5 Days Prescriptions: AtorvaSTATin [Lipitor] 40 mg PO QHS #30 tablet Aspirin [Aspirin BABY CHEW TAB] 81 mg PO QDAY #30 tab.chew Clopidogrel [Plavix] 75 mg PO QDAY #30 tablet Pantoprazole [Protonix] 40 mg PO QDAY #30 tablet
[2017-06-12] MEDS ORDERED: PREGABALIN 300 MG PO SCH (10:00)
[2017-06-12] MEDS ORDERED: DULOXETINE HCL 90 MG PO SCH (10:00)
--- NOTE | 2017-06-12 10:50 | Progress Note ---
Assessment and Plan / Chest pain in adult Serial CE's and EKG add aspirin, plavix, statin BB ordered 2d echo and stress test - hold now will get record from [facility] consult cardiology /Elevated d-dimer We'll get a chest x-ray and CT chest / Lupus (systemic lupus erythematosus) - no acute issue, will monitor /CAD, cont aspirin, statin, plavix wait for records from [facility] / IDDM (insulin dependent diabetes mellitus) Home insulin and coverage Check a1c /Peripheral neuropathy Cont Cymbalta and Lyrica / Substance and tobacco abuse Counseled for cessation /DVT prophylaxis On Heparin Brief history: This is a 37-year-old female who had a recent cardiac event 2 weeks ago with stent placement at [facility] , h/o tobacco abuse with one pack per day smoker for 20 years and is still smoking, substance abuse with marijuana presents with a one day history of chest pain Hospitalist Physical exam: GENERAL: well-developed and well-nourished -Finnish female lying on bed appeared to be in no discomfort. HEENT: Normocephalic. Atraumatic. No conjunctival congestion or icterus. Patient has moist mucous membranes. NECK: Supple. Trachea midline. CHEST/LUNGS: Clear to auscultated bilaterally, breathing nonlabored. No wheezes crackles or rhonchi. HEART/CARDIOVASCULAR: Regular in rate and rhythm. S1 and S2 positive. ABDOMEN: Abdomen is soft, nontender. Patient has normal bowel sounds. SKIN: There is no rash. Warm and dry. NEURO: No focal motor deficit. Follows command. MUSCULOSKELETAL: No joint effusion or tenderness. EXTRIMITY: No edema, no cyanosis or clubbing. PSYCH: Cooperative. Subjective Date of service: 06/12/17 Interval history: Patient seen and examined. Medical records and medication list reviewed. No acute event overnight noted by the RN. Patient complains of intermittent chest pain. Patient is tolerating diet. Discussed plan of care at bedside with patient. Objective - Constitutional Vitals: Vital Signs - 12hr 06/12/17 07:30 Temperature 98.8 F Pulse Rate 74 Respiratory 20 Rate Blood Pressure 121/74 O2 Sat by Pulse 99 Oximetry - Labs CBC & Chem 7: 06/12/17 08:11 06/12/17 08:11 Labs: Abnormal lab results 06/11/17 06/11/17 06/11/17 Range/Units 17:31 17:31 17:31 WBC 12.3 H (4.5-11.0) K/mm3 MCV 76 L (79-97) fl MCH 24 L (28-32) pg RDW 17.8 H (13.2-15.2) % Lymph % (Auto) (13.4-35.0) % D-Dimer (0-234) ng/mlDDU Glucose 124 H (65-100) mg/dL POC Glucose (70-105) Hemoglobin A1c 9.7 H (4-6) % Albumin (3.9-5) g/dL 06/11/17 06/12/17 06/12/17 Range/Units 18:07 00:30 05:14 WBC (4.5-11.0) K/mm3 MCV (79-97) fl MCH (28-32) pg RDW (13.2-15.2) % Lymph % (Auto) (13.4-35.0) % D-Dimer 451.88 H (0-234) ng/mlDDU Glucose (65-100) mg/dL POC Glucose 286 H 167 H (70-105) Hemoglobin A1c (4-6) % Albumin (3.9-5) g/dL 06/12/17 06/12/17 Range/Units 08:11 08:11 WBC (4.5-11.0) K/mm3 MCV 76 L (79-97) fl MCH 24 L (28-32) pg RDW 17.3 H (13.2-15.2) % Lymph % (Auto) 35.9 H (13.4-35.0) % D-Dimer (0-234) ng/mlDDU Glucose 208 H (65-100) mg/dL POC Glucose (70-105) Hemoglobin A1c (4-6) % Albumin 3.3 L (3.9-5) g/dL
--- NOTE | 2017-06-12 11:24 | XRay Report ---
AP CHEST: HISTORY: chest pain AP view of the chest demonstrates a normal mediastinal and cardiac contour with clear lungs and normal bony and soft tissue structures. IMPRESSION: Unremarkable AP chest. No change since 06/11/17.
[2017-06-12] MEDS ORDERED: HumaLOG SUB-Q ONE ×3 (11:30)
[2017-06-12] MEDS: HABITROL TD SCH (11:55)
[2017-06-12] MEDS: PLAVIX PO SCH (11:56)
[2017-06-12] MEDS: CYMBALTA PO SCH (11:56)
[2017-06-12] MEDS: LYRICA PO SCH ×2 (11:56→22:59)
[2017-06-12] MEDS: BABY ASPIRIN PO SCH (11:56)
[2017-06-12] MEDS: PEPCID PO SCH ×2 (11:57→23:00)
[2017-06-12] MEDS: SODIUM CHLORIDE FLUSH SYRINGE 10 ML IV SCH ×2 (11:58→23:01)
--- NOTE | 2017-06-12 15:45 | Consultation ---
History of Present Illness Consult date: 06/12/17 Requesting physician: JOANNE MAYFIELD Consult reason: chest pain, hypertension (since her heart attack.) History of present illness: patient use history of having heart attack and stent placement at [facility] two to three weeks ago.she was admitted at that time with nausea, vomiting, diarrhea in addition to chest pain.after five days of hospitalization she was discharged home.presently she having the anterior chest pressure/ discomfort of 3 to 4 days duration, intermittent sometimes radiating arm, sometimes associated with sweating. Because of persistent chest pain, she came to the emergency room. Cardiac enzymes were unremarkable. EKG did not show acute changes. Patient may not be compliant with her medications. Past History Past Medical History: acute MS, diabetes (5-6 years duration.on insulin.), other (history of Lupus,, since is 12, on Plaquenil and prednisone.hx.of hidradenitis.hx. of arthritis.) Past Surgical History: Other (history of breast reduction.) Social history: single, smoking (smokes one pack per day since age 16.), other ( smokes pot every day 3-4 times a day.) Medications and Allergies Allergies Allergy/AdvReac Type Severity Reaction Status Date / Time egg Allergy Hives Verified 04/02/17 13:13 tramadol HCl [From Ultram] Allergy Hives Verified 04/02/17 13:13 vancomycin Allergy Hives Verified 04/02/17 13:13 Home Medications Medication Instructions Recorded Confirmed Last Taken Type Duloxetine HCl [Cymbalta] 90 mg PO DAILY 09/22/16 09/23/16 Unknown History Pregabalin [Lyrica] 300 mg PO BID 09/22/16 09/23/16 Unknown History Trazodone HCl 150 mg PO QHS 09/22/16 09/23/16 Unknown History Ziprasidone HCl [Geodon] 80 mg PO BID 09/22/16 09/23/16 Unknown History Insulin Detemir [Levemir VIAL] 25 unit SQ QHS #1 vial 09/23/16 Unknown Rx Insulin Aspart [NovoLOG Flexpen] 1 dose SQ AC PRN #1 pen 09/24/16 Unknown Rx Insulin Glargine [Lantus VIAL] 25 unit SUB-Q QHS 30 Days units 09/24/16 Unknown Rx Nicotine [Habitrol] 21 mg TD QDAY #30 patch 09/24/16 Unknown Rx Insulin Regular, Human [HumuLIN R] 100 unit SQ AC #1 units 04/02/17 Unknown Rx Syringe-Needle,Insulin,0.5 ml 1 each UNK 30 Days #100 04/10/17 Unknown Rx [Insulin Syringe/Needle 0.5 ML] disp.syrin Sulfamethoxazole/Trimethoprim 1 each PO BID #14 tablet 05/26/17 Unknown Rx [Bactrim DS TAB] Aspirin [Aspirin BABY CHEW TAB] 81 mg PO QDAY #30 tab.chew 06/12/17 Unknown Rx AtorvaSTATin [Lipitor] 40 mg PO QHS #30 tablet 06/12/17 Unknown Rx Clopidogrel [Plavix] 75 mg PO QDAY #30 tablet 06/12/17 Unknown Rx Pantoprazole [Protonix] 40 mg PO QDAY #30 tablet 06/12/17 Unknown Rx Active Meds: Active Medications Acetaminophen (Tylenol) 650 mg PO Q4H PRN PRN Reason: Pain MILD(1-3)/Fever >100.5/COELHO Aspirin (Baby Aspirin) 81 mg PO QDAY [facility] Last Admin: 06/12/17 11:56 Dose: 81 mg Atorvastatin Calcium (Lipitor) 40 mg PO QHS ARYAN Clopidogrel Bisulfate (Plavix) 75 mg PO QDAY [facility] Last Admin: 06/12/17 11:56 Dose: 75 mg Diphenhydramine HCl (Benadryl) 25 mg IV Q6H PRN PRN Reason: Itching Last Admin: 06/11/17 23:48 Dose: 25 mg Duloxetine HCl (Cymbalta) 90 mg PO QDAY [facility] Last Admin: 06/12/17 11:56 Dose: 90 mg Famotidine (Pepcid) 20 mg PO BID [facility] Last Admin: 06/12/17 11:57 Dose: 20 mg Hydromorphone HCl (Dilaudid) 0.5 mg IV Q3H PRN PRN Reason: Pain , Severe (7-10) Ibuprofen (Motrin) 800 mg PO Q8HR PRN PRN Reason: Pain Insulin Glargine (Lantus) 25 units SUB-Q QHS [facility] Insulin Human Lispro (Humalog) 0 unit SUB-Q [facility]; Protocol Last Admin: 06/12/17 11:54 Dose: 8 unit Metoprolol Tartrate (Lopressor) 12.5 mg PO BID [facility] Morphine Sulfate (Morphine) 2 mg IV Q4H PRN PRN Reason: Pain, Moderate (4-6) Last Admin: 06/12/17 13:25 Dose: 2 mg Nicotine (Habitrol) 21 mg TD QDAY [facility] Last Admin: 06/12/17 11:55 Dose: 21 mg Ondansetron HCl (Zofran) 4 mg IV Q8H PRN PRN Reason: Nausea And Vomiting Oxycodone/Acetaminophen (Percocet 5/325) 1 tab PO Q6H PRN PRN Reason: Pain, Moderate (4-6) Pregabalin (Lyrica) 300 mg PO BID [facility] Last Admin: 06/12/17 11:56 Dose: 300 mg Sodium Chloride (Sodium Chloride Flush Syringe 10 Ml) 10 ml IV BID [facility] Last Admin: 06/12/17 11:58 Dose: 10 ml Sodium Chloride (Sodium Chloride Flush Syringe 10 Ml) 10 ml IV PRN PRN PRN Reason: LINE FLUSH Review of Systems Constitutional: no weight loss Ears, nose, mouth and throat: no ear discharge Cardiovascular: chest pain Respiratory: cough Gastrointestinal: no abdominal pain Musculoskeletal: no neck stiffness Integumentary: no rash Psychiatric: no anxiety Hematologic/Lymphatic: no easy bruising Allergic/Immunologic: no urticaria Physical Examination Vital Signs Temp Pulse Resp BP Pulse Ox 97.9 F 92 H 18 139/82 97 06/11/17 17:28 06/11/17 17:28 06/11/17 17:28 06/11/17 17:28 06/11/17 17:28 General appearance: no acute distress HEENT: Positive: PERRL Neck: Positive: neck supple, trachea midline Cardiac: Positive: Reg Rate and Rhythm Lungs: Positive: clear to auscultation Neuro: Positive: Grossly Intact Abdomen: Positive: Unremarkable Female genitourinary: deferred Skin: Positive: Clear Extremities: Absent: edema (I) Results 06/12/17 08:11 06/12/17 08:11 Cardiac Enzymes 06/12/17 Range/Units 08:11 AST 18 (5-40) units/L CBC 06/11/17 06/12/17 Range/Units 17:31 08:11 WBC 12.3 H 9.5 (4.5-11.0) K/mm3 RBC 4.47 4.36 (3.65-5.03) M/mm3 Hgb 10.7 10.3 (10.1-14.3) gm/dl Hct 34.0 32.9 (30.3-42.9) % Plt Count 430 422 (140-440) K/mm3 Lymph # 4.1 3.4 (1.2-5.4) K/mm3 [place] # 0.8 0.6 (0.0-0.8) K/mm3 Eos # 0.2 0.3 (0.0-0.4) K/mm3 Baso # 0.0 0.0 (0.0-0.1) K/mm3 Comprehensive Metabolic Panel 06/11/17 06/12/17 Range/Units 17:31 08:11 Sodium 140 139 (137-145) mmol/L Potassium 3.7 4.1 (3.6-5.0) mmol/L Chloride 101.3 102.4 (98-107) mmol/L Carbon Dioxide 22 22 (22-30) mmol/L BUN 8 8 (7-17) mg/dL Creatinine 0.7 0.7 (0.7-1.2) mg/dL Glucose 124 H 208 H (65-100) mg/dL Calcium 9.0 8.6 (8.4-10.2) mg/dL AST 18 (5-40) units/L ALT 27 (7-56) units/L Alkaline Phosphatase 89 (35-129) units/L Total Protein 6.4 (6.3-8.2) g/dL Albumin 3.3 L (3.9-5) g/dL EKG interpretations - EKG Sinus rhythms and dysrhythmias: sinus rhythm Assessment and Plan chest pain of few days duration, atypical, somewhat pleuritic, recent history of coronary intervention and myocardial infarction. Cardiac enzymes are unremarkable. However because of persistent chest pain, would do further ischemic evaluation,also will get an echocardiogram to rule out any pericardial ffussion. Discussed with the patient and she is aggreable.. - Patient Problems (1) IDDM (insulin dependent diabetes mellitus) Current Visit: Yes Status: Chronic (2) Accelerated hypertension Current Visit: No Status: Acute (3) Lupus (systemic lupus erythematosus) Current Visit: No Status: Chronic Qualifiers: Systemic lupus erythematosus type: unspecified
[2017-06-12] MEDS: BENADRYL IV PRN (18:23)
[2017-06-12] MEDS: PERCOCET 5/325 PO PRN (20:40)
[2017-06-12] MEDS ORDERED: NON-FORMULARY (Insulin Detemir [Levemir Vial] 25 UNIT) SQ SCH (22:00)
[2017-06-12] MEDS ORDERED: LANTUS SUB-Q SCH (22:00)
[2017-06-12] MEDS: LOPRESSOR PO SCH (22:59)
[2017-06-13] MEDS: MORPHINE IV PRN ×3 (04:30→16:28)
[2017-06-13] MEDS: BENADRYL IV PRN (04:35)
[2017-06-13] MEDS: HumaLOG SUB-Q SCH ×3 (10:17→17:35)
[2017-06-13] MEDS: BABY ASPIRIN PO SCH (10:32)
[2017-06-13] MEDS: CYMBALTA PO SCH (10:32)
[2017-06-13] MEDS: LOPRESSOR PO SCH ×2 (10:35→16:41)
[2017-06-13] MEDS: PEPCID PO SCH (10:35)
[2017-06-13] MEDS: LYRICA PO SCH (10:35)
[2017-06-13] MEDS: PLAVIX PO SCH (10:35)
[2017-06-13] MEDS: SODIUM CHLORIDE FLUSH SYRINGE 10 ML IV SCH (10:50)
[2017-06-13 12:14] LABS: HCG Qualitative,Urine Negative (Negative)
--- NOTE | 2017-06-13 12:39 | Progress Note ---
Assessment and Plan Assessment and plan: This is a 37-year-old female who had a recent cardiac event 2 weeks ago with stent placement at [facility] , h/o tobacco abuse with one pack per day smoker for 20 years and is still smoking, substance abuse with marijuana presents with a one day history of chest pain Chest pain in adult Serial CE's and EKG Continue aspirin, plavix, statin BB ordered 2d echo and stress test - hold now will get record from [facility] consult cardiology Elevated d-dimer Was unremarkable chest x-ray and CT chest ordered Lupus (systemic lupus erythematosus) - no acute issue, will monitor CAD, cont aspirin, statin, plavix wait for records from [facility] IDDM (insulin dependent diabetes mellitus) Home insulin and coverage a1c 9.7 Peripheral neuropathy Cont Cymbalta and Lyrica Substance and tobacco abuse Counseled for cessation DVT prophylaxis On Heparin History Interval history: Patient seen and examined. She continues to complain of intermittent CP. Labs and nursing notes reviewed. Hospitalist Physical - Constitutional Vitals: Temp Pulse Resp BP Pulse Ox 98.3 F 60 18 110/80 97 06/13/17 07:46 06/13/17 07:46 06/13/17 07:46 06/13/17 11:07 06/13/17 07:46 General appearance: Present: no acute distress, well-nourished - EENT Eyes: Present: PERRL, EOM intact ENT: hearing intact, clear oral mucosa, poor dentition - Neck Neck: Present: supple, normal ROM - Respiratory Respiratory effort: normal Respiratory: bilateral: CTA - Cardiovascular Rhythm: regular Heart Sounds: Present: S1 & S2 - Extremities Extremities: no ischemia, No edema - Abdominal General gastrointestinal: soft, non-tender, non-distended - Integumentary Integumentary: Present: clear, warm, dry - Psychiatric Psychiatric: appropriate mood/affect, intact judgment & insight, cooperative - Neurologic Neurologic: CNII-XII intact, moves all extremities - Allied Health Allied health notes reviewed: nursing Results - Labs CBC & Chem 7: 06/12/17 08:11 06/12/17 08:11 Labs: Laboratory Last Values WBC 9.5 K/mm3 (4.5-11.0) 06/12/17 08:11 RBC 4.36 M/mm3 (3.65-5.03) 06/12/17 08:11 Hgb 10.3 gm/dl (10.1-14.3) 06/12/17 08:11 Hct 32.9 % (30.3-42.9) 06/12/17 08:11 MCV 76 fl (79-97) L 06/12/17 08:11 MCH 24 pg (28-32) L 06/12/17 08:11 MCHC 31 % (30-34) 06/12/17 08:11 RDW 17.3 % (13.2-15.2) H 06/12/17 08:11 Plt Count 422 K/mm3 (140-440) 06/12/17 08:11 Lymph % (Auto) 35.9 % (13.4-35.0) H 06/12/17 08:11 [place] % (Auto) 6.0 % (0.0-7.3) 06/12/17 08:11 Eos % (Auto) 2.7 % (0.0-4.3) 06/12/17 08:11 Baso % (Auto) 0.5 % (0.0-1.8) 06/12/17 08:11 Lymph # 3.4 K/mm3 (1.2-5.4) 06/12/17 08:11 [place] # 0.6 K/mm3 (0.0-0.8) 06/12/17 08:11 Eos # 0.3 K/mm3 (0.0-0.4) 06/12/17 08:11 Baso # 0.0 K/mm3 (0.0-0.1) 06/12/17 08:11 Seg Neutrophils % 54.9 % (40.0-70.0) 06/12/17 08:11 Seg Neutrophils # 5.2 K/mm3 (1.8-7.7) 06/12/17 08:11 D-Dimer 451.88 ng/mlDDU (0-234) H 06/11/17 18:07 Sodium 139 mmol/L (137-145) 06/12/17 08:11 Potassium 4.1 mmol/L (3.6-5.0) 06/12/17 08:11 Chloride 102.4 mmol/L (98-107) 06/12/17 08:11 Carbon Dioxide 22 mmol/L (22-30) 06/12/17 08:11 Anion Gap 19 mmol/L 06/12/17 08:11 BUN 8 mg/dL (7-17) 06/12/17 08:11 Creatinine 0.7 mg/dL (0.7-1.2) 06/12/17 08:11 Estimated GFR > 60 ml/min 06/12/17 08:11 BUN/Creatinine Ratio 11 % 06/12/17 08:11 Glucose 208 mg/dL (65-100) H 06/12/17 08:11 POC Glucose 164 (70-105) H 06/13/17 12:11 Hemoglobin A1c 9.7 % (4-6) H 06/11/17 17:31 Calcium 8.6 mg/dL (8.4-10.2) 06/12/17 08:11 Total Bilirubin 0.20 mg/dL (0.1-1.2) 06/12/17 08:11 AST 18 units/L (5-40) 06/12/17 08:11 ALT 27 units/L (7-56) 06/12/17 08:11 Alkaline Phosphatase 89 units/L (35-129) 06/12/17 08:11 Troponin T < 0.010 ng/mL (0.00-0.029) 06/12/17 10:57 Total Protein 6.4 g/dL (6.3-8.2) 06/12/17 08:11 Albumin 3.3 g/dL (3.9-5) L 06/12/17 08:11 Albumin/Globulin Ratio 1.1 % 06/12/17 08:11 Urine Color Straw (Yellow) 06/11/17 19:29 Urine Turbidity Clear (Clear) 06/11/17 19:29 Urine pH 7.0 (5.0-7.0) 06/11/17 19:29 Ur Specific [place] 1.006 (1.003-1.030) 06/11/17 19:29 Urine Protein <15 mg/dl mg/dL (Negative) 06/11/17 19:29 Urine Glucose (UA) 50 mg/dL (Negative) 06/11/17 19:29 Urine Ketones Neg mg/dL (Negative) 06/11/17 19:29 Urine Blood Neg (Negative) 06/11/17 19: Urine Nitrite Neg (Negative) 06/11/17 19:29 Urine Bilirubin Neg (Negative) 06/11/17 19:29 Urine Urobilinogen < 2.0 mg/dL (<2.0) 06/11/17 19:29 Ur Leukocyte Esterase Neg (Negative) 06/11/17 19:29 Urine WBC (Auto) < 1.0 /HPF (0.0-6.0) 06/11/17 19:29 Urine RBC (Auto) < 1.0 /HPF (0.0-6.0) 06/11/17 19:29 Urine Bacteria (Auto) 1+ /HPF (Negative) 06/11/17 19:29 Urine HCG, Qual Negative (Negative) 06/13/17 11:47 Urine Opiates Screen Presumptive negative 06/11/17 19:29 Urine Methadone Screen Presumptive negative 06/11/17 19:29 Ur Barbiturates Screen Presumptive negative 06/11/17 19:29 Ur Phencyclidine Scrn Presumptive negative 06/11/17 19:29 Ur Amphetamines Screen Presumptive negative 06/11/17 19:29 U Benzodiazepines Scrn Presumptive negative 06/11/17 19:29 Urine Cocaine Screen Presumptive negative 06/11/17 19:29 U Marijuana (THC) Screen Presumptive positive 06/11/17 19:29 Drugs of Abuse Note Disclamer 06/11/17 19:29
--- NOTE | 2017-06-13 13:00 | Discharge Summary ---
<JOANNE MAYFIELD - Last Filed: 06/13/17 17:53> Providers - Providers Date of Admission: 06/11/17 20:04 Attending physician: JOANNE MAYFIELD 06/12/17 08:58 Consult to Physician [CONS] Routine Consulting Provider: JEAN LOMBARDO Reason For Exam: chest pain Place consult to:: fiction writer literacy education professor Notified:: answering service Phone number called:: [phone] Was contact made?: Yes If yes, spoke with:: antwan Time called:: 11:54 Comment:: sam 06/12/17 16:36 Consult to PICC Line RN [CONS] Urgent Reason For Exam: Place #20g INT for CTA Type Line:: Midline Primary care physician: RAMÓN WILSON Hospitalization Condition: Stable Disposition: DC-01 TO HOME OR SELFCARE Exam - Constitutional Vitals: Temp Pulse Resp BP Pulse Ox 98.4 F 89 18 121/70 97 06/13/17 16:20 06/13/17 13:53 06/13/17 16:20 06/13/17 16:20 06/13/17 12:13 Plan Additional Instructions: Take flagyl for bacterial vaginosis. Stop taking other abx Follow up with: PRIMARY CARE, [Referring] - 3-5 Days CELINA GONZALEZ NP [Advanced Practice Nurse] - 7 Days Prescriptions: AtorvaSTATin [Lipitor] 40 mg PO QHS #30 tablet Aspirin [Aspirin BABY CHEW TAB] 81 mg PO QDAY #30 tab.chew Clopidogrel [Plavix] 75 mg PO QDAY #30 tablet metroNIDAZOLE [Flagyl] 500 mg PO Q8HR #21 tablet Pantoprazole [Protonix] 40 mg PO QDAY #30 tablet <DIANE MEJIA - Last Filed: 06/14/17 14:39> Providers - Providers Date of Admission: 06/11/17 20:04 Date of discharge: 06/13/17 Attending physician: JOANNE MAYFIELD 06/12/17 08:58 Consult to Physician [CONS] Routine Consulting Provider: JEAN LOMBARDO Reason For Exam: chest pain Place consult to:: fiction writer literacy education professor Notified:: answering service Phone number called:: [phone] Was contact made?: Yes If yes, spoke with:: antwan Time called:: 11:54 Comment:: sam 06/12/17 16:36 Consult to PICC Line RN [CONS] Urgent Reason For Exam: Place #20g INT for CTA Type Line:: Midline Primary care physician: RAMÓN WILSON Hospitalization Pertinent studies: Unremarkable AP chest. No change since 06/11/17. BLE VENOUS DUPLEX DONE. NO EVIDENCE OF DVT/SVT IN VESSELS VISUALIZED. CTA chest revealed 3.9 mm solid nodule right upper lobe series 4:43. Hospital course: This is a 37-year-old female who had a recent cardiac event 2 weeks ago with stent placement at [facility] , h/o tobacco abuse with one pack per day smoker for 20 years and is still smoking, substance abuse with marijuana presents with a one day history of chest pain Patient underwent cardiac workup starting with serial CE which were negative. Cardiology services for consultation and patient had a stress test which was equivocal for ischemia due to artifact but likely nonischemic per cardiology. Echocardiogram revealed ejection fraction of 50-55%. Patient was clinically stable for discharge from a cardiac standpoint as her symptoms had subsided and 22 negative studies. Patient advised to follow-up with cardiology services within 1-2 weeks of discharge Discharge diagnoses Chest pain likely pleuritic Elevated d-dimer Lupus Coronary artery disease IDDM Peripheral neuropathy Substance and tobacco abuse DVT prophylaxis Time spent for discharge: 32 minutes Core Measure Documentation - Palliative Care Palliative Care/ Comfort Measures: Not Applicable - Core Measures Any of the following diagnoses?: none Exam - Constitutional Vitals: Temp Pulse Resp BP Pulse Ox 98.3 F 60 18 110/80 97 06/13/17 07:46 06/13/17 07:46 06/13/17 07:46 06/13/17 11:07 06/13/17 07:46 General appearance: Present: no acute distress, well-nourished - EENT Eyes: Present: PERRL ENT: hearing intact, clear oral mucosa - Neck Neck: Present: supple, normal ROM - Respiratory Respiratory effort: normal Respiratory: bilateral: CTA - Cardiovascular Heart Sounds: Present: S1 & S2. Absent: rub, click - Extremities Extremities: pulses symmetrical, No edema Peripheral Pulses: within normal limits - Abdominal General gastrointestinal: Present: soft, non-tender, non-distended, normal bowel sounds Female genitourinary: Present: normal - Integumentary Integumentary: Present: clear, warm, dry - Musculoskeletal Musculoskeletal: gait normal, strength equal bilaterally - Psychiatric Psychiatric: appropriate mood/affect, intact judgment & insight - Neurologic Neurologic: CNII-XII intact, moves all extremities
[2017-06-13] MEDS ORDERED: LEXISCAN IV ONE (13:34)
--- NOTE | 2017-06-13 14:11 | Progress Note ---
Assessment and Plan Assessment: Chest pain, atypical - somewhat pleuritic; ECG with NAF; Chapin negative for AMI CAD s/p recent RI and PCI 2-3 weeks ago at [facility] per pt report Accelerated HTN DM Lupus Plan: Proceed with lexiscan MPI stress test. Await findings. Await echo. Await records requested from [facility]. The patient has been seen in conjunction with Dr. Esqueda who agrees with the assessment and plan of care. Subjective Date of service: 06/13/17 Principal diagnosis: cp Interval history: pt seen in stress lab, no current complaints. Objective Last Vital Signs Temp 98.3 F 06/13/17 07:46 Pulse 95 H 06/13/17 13:51 Resp 18 06/13/17 07:46 BP 121/68 06/13/17 13:51 Pulse Ox 97 06/13/17 07:46 - Physical Examination General: No Apparent Distress HEENT: Positive: PERRL Neck: Positive: neck supple, trachea midline Cardiac: Positive: Reg Rate and Rhythm, S1/S2 Lungs: Positive: clear to auscultation Neuro: Positive: Grossly Intact Abdomen: Positive: Unremarkable Skin: Positive: Clear Extremities: Absent: edema (I) - Imaging and Cardiology EKG: report reviewed (T wave inversion L 2 L3) - EKG Sinus rhythms and dysrhythmias: sinus rhythm
--- NOTE | 2017-06-13 15:51 | Event Note ---
Date: 06/13/17 Cath report from [facility] reviewed - pt is s/p STEMI with PCI of RCA 06/01/2017. Lexiscan MPI stress test this AM equivocal for ischemia due to artifact, but likely nonischemic. Given atypical nature of chest pain, current resolution of chest pain, Chapin negative for AMI and ECG with no acute ischemic changes, recommend continuation of medical management. Currently stable cardiac status. Pending echo reveals NAF and no gross abnormalities, pt may discharge home from cardiology standpoint. Recommend follow up in our office with Johanny Diamond NP, within 1-2 weeks of hospital discharge ([phone]). Tenzin FAYE NP / DR. FELDER
[2017-06-13 16:29] VITALS: BP 121/70
--- NOTE | 2017-06-13 16:29 | Cat Scan Report ---
FINAL REPORT EXAM: CT ANGIO CHEST HISTORY: possible PE TECHNIQUE: CTA of chest with IV contrast. Coronal and sagittal and MIP reconstructed images provided. PRIORS: None currently available. FINDINGS: 3.9 mm solid nodule right upper lobe series 4:43. No pneumothorax. No effusion. No consolidation. No endobronchial lesion. Linear scarring or discoid subsegmental atelectasis at both lung bases. Main pulmonary arteries are unremarkable. No pulmonary embolus. No aortic aneurysm. No dissection. Major branch arteries are intact Heart size unremarkable. No pericardial effusion. There is no axillary adenopathy. There is no hilar or mediastinal mass or adenopathy. Images of the esophagus are unremarkable. Images of thyroid gland are unremarkable. No suspicious osseous lesions on this limited examination of the skeleton. Metastatic disease better evaluated with bone scan. Degenerative changes are present in the spine. IMPRESSION: No pulmonary embolus. No aortic aneurysm. No dissection. Right upper lobe pulmonary nodule. 2017 [employer] GUIDELINES FOR PULMONARY NODULE MANAGEMENT: SOLID SINGLE NODULE: LOW risk patient (no significant smoking history, no history of malignancy, and a normal immune system) nodules: < 6 mm - No routine follow up. 6-8 mm - CT at 6-12 months. Then, consider CT at 18-24 months. > 8 mm - CT at around 3 months, PET, and/or biopsy. HIGH risk patient, follow-up noncontrast < 6 mm - Optional CT at 12 months. 6-8 mm - CT at 6-12 months. Then, CT at 18-24 months. > 8 mm - CT at around 3 months, PET, and/or biopsy. Low risk patients - minimal or absent history of smoking and or other known risk factors High risk patients - history of smoking or of other known risk factors
[2017-06-13] MEDS: HABITROL TD SCH (16:41)
--- NOTE | 2017-06-13 21:30 | Treadmill Report ---
MYOCARDIAL PERFUSION IMAGING STUDY Resting images revealed homogeneous radioisotope activity. On post Lexiscan, there was slightly diminished radioisotope activity noted in inferior region. This is most likely due to artifact because of increased uptake in the liver noted. There is borderline transient ischemic dilatation with 1.2. On gated study, ejection fraction was noted to be 47%. IMPRESSION: 1. This study is equivocal for inferior wall ischemia. 2. Mild transient ischemic dilatation is noted. 3. Correlate clinically for further evaluation. JOB# [id number] GABRIELLE/NTS
--- NOTE | 2017-06-15 11:08 | Vascular Lab Report ---
LOWER EXTREMITY VENOUS DUPLEX: REASON FOR EXAM: Deep venous thrombosis. COMMENTS ON THE RIGHT: All veins visualized are freely compressible without evidence of internal echogenicity. Flow is spontaneous and phasic throughout. COMMENTS ON THE LEFT: All veins visualized are freely compressible without evidence of internal echogenicity. Flow is spontaneous and phasic throughout. IMPRESSION: No evidence of acute or chronic deep venous thrombosis in either lower extremity.
== END 2017-06-13 21:40 | disposition home or self-care (01) | DRG 313 ==
LOC: ED 17:19 → 3A 20:04
PROVIDERS: ADMIT Internal Medicine; ATTEND Internal Medicine
DX: R07.89 Other chest pain (principal); F17.210 Nicotine dependence, cigarettes, uncomplicated; F12.90 Cannabis use, unspecified, uncomplicated; M32.9 Systemic lupus erythematosus, unspecified; I25.10 Atherosclerotic heart disease of native coronary artery without angina pectoris; E11.42 Type 2 diabetes mellitus with diabetic polyneuropathy; Z79.899 Other long term (current) drug therapy; Z88.1 Allergy status to other antibiotic agents; Z95.5 Presence of coronary angioplasty implant and graft; Z79.4 Long term (current) use of insulin; Z91.012 Allergy to eggs; I25.2 Old myocardial infarction; Z71.6 Tobacco abuse counseling
CPT/HCPCS: 36415; 71045; 71046; 71275; 78452; 80048; 80053; 80307; 81001; 81025; 82962; 83036; 84484; 85025; 85379; 93005; 93010; 93017; 93306; 93970; 96374; 96375; 99406; A9270-GY; A9502; J1200; J1815; J2270; J2405; J2785; Q9967

== ENCOUNTER 2017-06-14 18:22 | Observation (INO) | payer MEDICARE ==
[2017-06-14] MEDS ORDERED: ASPIRIN PO ONE (18:41)
[2017-06-14 19:59] LABS: BUN/Creatinine Ratio 17; Blood Urea Nitrogen 12 mg/dL (7-17); Calcium 8.9 mg/dL (8.4-10.2); Hemolysis Index 6
[2017-06-14 20:07] LABS: Basophils % (Auto) 0.4 % (0.0-1.8); Eosinophils # (Auto) 0.2 K/mm3 (0.0-0.4); Eosinophils % (Auto) 1.4 % (0.0-4.3); Hematocrit 32.9 % (30.3-42.9); Hemoglobin 10.8 gm/dl (10.1-14.3); Lymphocytes # (Auto) 2.7 K/mm3 (1.2-5.4); Lymphocytes % (Auto) 23.3 % (13.4-35.0); Mean Corpuscular HGB Conc 33 % (30-34); Mean Corpuscular Volume 75 fl (79-97); Monocytes # (Auto) 0.6 K/mm3 (0.0-0.8); Platelet Count 433 K/mm3 (140-440); Red Blood Count 4.41 M/mm3 (3.65-5.03)
[2017-06-14 20:09] LABS: Mean Corpuscular Hemoglobin 24 pg (28-32)
--- NOTE | 2017-06-15 00:03 | Emergency Department Report ---
ED Chest Pain HPI - General Chief Complaint: Chest Pain Stated Complaint: CP Time Seen by Provider: 06/14/17 21:29 Source: patient Mode of arrival: Ambulatory Limitations: No Limitations - History of Present Illness Initial Comments: [id number] female who has recently been seen multiple times for chest pain. She states that she is having the same type of chest pain in the past. She's not sure if she is having heart attack. She states it does radiate to her left arm. She was recently discharged here after being admitted for chest pain. I saw her a couple days ago. She admits that she was not compliant with her Plavix in the past. She stated that she thought the marijuana and Plavix did not go well together so she decided to continue with her marijuana and stopped Plavix. She also admits to nausea. MD Complaint: chest pain -: Gradual Onset: during rest Pain Location: substernal Pain Radiation: LUE Severity: moderate Severity scale (0 -10): 6 Quality: tightness Consistency: constant Improves With: nothing Worsens With: nothing re: nausea Other Symptoms: cough Treatments Prior to Arrival: aspirin - Related Data Home Medications Medication Instructions Recorded Confirmed Last Taken Duloxetine HCl [Cymbalta] 90 mg PO DAILY 09/22/16 09/23/16 Unknown Pregabalin [Lyrica] 300 mg PO BID 09/22/16 09/23/16 Unknown Trazodone HCl 150 mg PO QHS 09/22/16 09/23/16 Unknown Ziprasidone HCl [Geodon] 80 mg PO BID 09/22/16 09/23/16 Unknown Previous Rx's Medication Instructions Recorded Last Taken Type Insulin Detemir [Levemir VIAL] 25 unit SQ QHS #1 vial 09/23/16 Unknown Rx Insulin Aspart [NovoLOG Flexpen] 1 dose SQ AC PRN #1 pen 09/24/16 Unknown Rx Insulin Glargine [Lantus VIAL] 25 unit SUB-Q QHS 30 Days units 09/24/16 Unknown Rx Nicotine [Habitrol] 21 mg TD QDAY #30 patch 09/24/16 Unknown Rx Insulin Regular, Human [HumuLIN R] 100 unit SQ AC #1 units 04/02/17 Unknown Rx Syringe-Needle,Insulin,0.5 ml 1 each MC UNK 30 Days #100 04/10/17 Unknown Rx [Insulin Syringe/Needle 0.5 ML] disp.syrin Sulfamethoxazole/Trimethoprim 1 each PO BID #14 tablet 05/26/17 Unknown Rx [Bactrim DS TAB] Aspirin [Aspirin BABY CHEW TAB] 81 mg PO QDAY #30 tab.chew 06/12/17 Unknown Rx AtorvaSTATin [Lipitor] 40 mg PO QHS #30 tablet 06/12/17 Unknown Rx Clopidogrel [Plavix] 75 mg PO QDAY #30 tablet 06/12/17 Unknown Rx Pantoprazole [Protonix] 40 mg PO QDAY #30 tablet 06/12/17 Unknown Rx metroNIDAZOLE [Flagyl] 500 mg PO Q8HR #21 tablet 06/13/17 Unknown Rx Allergies Allergy/AdvReac Type Severity Reaction Status Date / Time egg Allergy Hives Verified 04/02/17 13:13 tramadol HCl [From Ultram] Allergy Hives Verified 04/02/17 13:13 vancomycin Allergy Hives Verified 04/02/17 13:13 Heart Score - HEART Score History: Slightly suspicious EKG: Non-specific Age: < 45 Risk factors: 1-2 risk factors Troponin: < normal limit HEART Score: 2 ED Review of Systems ROS: Stated complaint: CP Other details as noted in HPI Comment: All other systems reviewed and negative Constitutional: no symptoms reported Eyes: as per HPI ENT: as per HPI Respiratory: see HPI Cardiovascular: as per HPI Endocrine: see HPI Gastrointestinal: as per HPI Genitourinary: as per HPI Musculoskeletal: as per HPI Skin: as per HPI Neurological: as per HPI Psychiatric: as per HPI Hematological/Lymphatic: as per HPI ED Past Medical Hx - Past Medical History Previous Medical History?: Yes Hx Hypertension: No Hx CVA: No Hx Heart Attack/AMI: Yes Hx Congestive Heart Failure: No Hx Diabetes: Yes (Type 2) Hx Deep Vein Thrombosis: No Hx Pulmonary Embolism: No Hx GERD: No Hx Liver Disease: No Hx Renal Disease: No Hx Sickle Cell Disease: No Hx Arthritis: No Hx Headaches / Migraines: No Hx Seizures: No Hx Kidney Stones: No Hx Psychiatric Treatment: Yes (BIPOLAR Boderline personality) Hx Asthma: No Hx COPD: No Hx Tuberculosis: No Hx Dementia: No Hx HIV: No Additional medical history: LUPUS, Hydroadenitis - Surgical History Past Surgical History?: Yes Hx Coronary Stent: Yes Hx Open Heart Surgery: No Hx Pacemaker: No Hx Internal Defibrillator: No Hx Cholecystectomy: No Hx Appendectomy: No Hx Breast Surgery: Yes Additional Surgical History: Breast reduction bilateral,excisional surg. for abscess - Social History Smoking Status: Current Every Day Smoker Substance Use Type: Marijuana - Medications Home Medications: Home Medications Medication Instructions Recorded Confirmed Last Taken Type Duloxetine HCl [Cymbalta] 90 mg PO DAILY 09/22/16 09/23/16 Unknown History Pregabalin [Lyrica] 300 mg PO BID 09/22/16 09/23/16 Unknown History Trazodone HCl 150 mg PO QHS 09/22/16 09/23/16 Unknown History Ziprasidone HCl [Geodon] 80 mg PO BID 09/22/16 09/23/16 Unknown History Insulin Detemir [Levemir VIAL] 25 unit SQ QHS #1 vial 09/23/16 Unknown Rx Insulin Aspart [NovoLOG Flexpen] 1 dose SQ AC PRN #1 pen 09/24/16 Unknown Rx Insulin Glargine [Lantus VIAL] 25 unit SUB-Q QHS 30 Days units 09/24/16 Unknown Rx Nicotine [Habitrol] 21 mg TD QDAY #30 patch 09/24/16 Unknown Rx Insulin Regular, Human [HumuLIN R] 100 unit SQ AC #1 units 04/02/17 Unknown Rx Syringe-Needle,Insulin,0.5 ml 1 each MC UNK 30 Days #100 04/10/17 Unknown Rx [Insulin Syringe/Needle 0.5 ML] disp.syrin Sulfamethoxazole/Trimethoprim 1 each PO BID #14 tablet 05/26/17 Unknown Rx [Bactrim DS TAB] Aspirin [Aspirin BABY CHEW TAB] 81 mg PO QDAY #30 tab.chew 06/12/17 Unknown Rx AtorvaSTATin [Lipitor] 40 mg PO QHS #30 tablet 06/12/17 Unknown Rx Clopidogrel [Plavix] 75 mg PO QDAY #30 tablet 06/12/17 Unknown Rx Pantoprazole [Protonix] 40 mg PO QDAY #30 tablet 06/12/17 Unknown Rx metroNIDAZOLE [Flagyl] 500 mg PO Q8HR #21 tablet 06/13/17 Unknown Rx ED Physical Exam - General Limitations: No Limitations General appearance: alert, in no apparent distress - Head Head exam: Present: atraumatic, normocephalic - Eye Eye exam: Present: normal appearance, PERRL, EOMI - ENT ENT exam: Present: normal exam, normal orophraynx - Neck Neck exam: Present: normal inspection, full ROM - Respiratory Respiratory exam: Present: normal lung sounds bilaterally. Absent: respiratory distress, wheezes, rales, rhonchi - Cardiovascular Cardiovascular Exam: Present: regular rate, normal rhythm, normal heart sounds - GI/Abdominal GI/Abdominal exam: Present: soft, normal bowel sounds - Rectal Rectal exam: Present: deferred - Extremities Exam Extremities exam: Present: normal inspection, full ROM - Back Exam Back exam: Present: normal inspection - Neurological Exam Neurological exam: Present: alert, oriented X3, CN II-XII intact - Psychiatric Psychiatric exam: Present: normal affect - Skin Skin exam: Present: warm, dry, intact, normal color ED Course Vital Signs 06/14/17 06/14/17 06/14/17 18:36 21:36 21:47 Temperature 98 F Pulse Rate 107 H 86 Respiratory 20 14 18 Rate Blood Pressure 102/66 O2 Sat by Pulse 98 99 99 Oximetry 06/14/17 06/14/17 22:00 22:30 Temperature Pulse Rate 83 80 Respiratory 17 14 Rate Blood Pressure 122/74 114/84 O2 Sat by Pulse 99 100 Oximetry - Reevaluation(s) Reevaluation #1: 06/15/17 00:06 Cardiac reassured the patient. I did explain to the patient that she will likely have chest pain from time to time but it does not always mean that it is cardiac in origin. She has had extensive workup done recently to my knowledge. The patient still feels that she could be having a cardiac event. I will notify the hospitalist for essential observation stay. ED Medical Decision Making - Lab Data Result diagrams: 06/14/17 19:13 06/14/17 19:13 Critical care attestation.: If time is entered above; I have spent that time in minutes in the direct care of this critically ill patient, excluding procedure time. ED Disposition Clinical Impression: Chest pain in adult Disposition: DC-09 OP ADMIT IP TO THIS HOSP Is pt being admited?: Yes Does the pt Need Aspirin: No Condition: Stable Instructions: Chest Pain (ED) Referrals: DURAN STRICKLAND MD [Primary Care Provider] - 3-5 Days
[2017-06-15] MEDS ORDERED: ZOFRAN IV PRN (00:43)
[2017-06-15] MEDS ORDERED: D50W (25GM) Syringe IV PRN ×2 (00:43→01:04)
[2017-06-15] MEDS ORDERED: TYLENOL PO PRN (00:43)
[2017-06-15] MEDS ORDERED: SODIUM CHLORIDE FLUSH SYRINGE 10 ML IV PRN (00:43)
[2017-06-15] MEDS ORDERED: PERCOCET 5/325 PO ONE (00:51)
[2017-06-15] MEDS ORDERED: ZOFRAN IV ONE (00:52)
[2017-06-15] MEDS ORDERED: INSULIN ASPART SQ PRN (00:53)
[2017-06-15] MEDS: PERCOCET 5/325 PO PRN (01:56)
--- NOTE | 2017-06-15 02:46 | History and Physical Report ---
History of Present Illness Date of examination: 06/15/17 Date of admission: 06/15/17 00:43 History of present illness: 37 year old woman with History of coronary artery disease, diabetes, bipolar comes to emergency room for evaluation of chest pain. The patient was just discharged from the hospital for chest pain evaluation, she had a CT chest and a stress test and echocardiogram. She stated that her chest pain return, she was given in medication in the hospital and at home she has none. Chest pain is in the epigastric area which she described as a crushing pain, intensity 6/10, radiating to the left arm, constant, worse with exertion, better with rest, not relieved with 4 sublingual nitroglycerin and ibuprofen. Admits to nausea, shortness of breath, no diaphoresis or palpitation Review of systems Constitutional: no weight loss, chills Ears, eyes, nose, mouth and throat: no nasal congestion, no nasal discharge, no sinus pressure, no vision change, no red eye. Neck: No neck pain or rigidity. Cardiovascular: no palpitations Respiratory: No cough Gastrointestinal: no abdominal pain, hematochezia Genitourinary : no dysuria, frequency , no hematuria Musculoskeletal: no joint swelling or muscle ache Integumentary: no rash, no pruritis Neurological: no parathesias, no numbness, no focal weakness Endocrine: no cold or heat intolerance, no polyuria or polydipsia Hematologic/Lymphatic: no easy bruising, no easy bleeding, no gland swelling Allergic/Immunologic: no urticaria, no angioedema.' PAST MEDICAL HISTORY: Coronary artery disease, bipolar, diabetes PAST SURGICAL HISTORY: Breast reduction SOCIAL HISTORY: Denies alcohol, tobacco, drugs FAMILY HISTORY: Hypertension, diabetes Medications and Allergies Allergies Allergy/AdvReac Type Severity Reaction Status Date / Time egg Allergy Hives Verified 04/02/17 13:13 tramadol HCl [From Ultram] Allergy Hives Verified 04/02/17 13:13 vancomycin Allergy Hives Verified 04/02/17 13:13 Home Medications Medication Instructions Recorded Confirmed Last Taken Type Duloxetine HCl [Cymbalta] 90 mg PO DAILY 09/22/16 09/23/16 Unknown History Pregabalin [Lyrica] 300 mg PO BID 09/22/16 09/23/16 Unknown History Trazodone HCl 150 mg PO QHS 09/22/16 09/23/16 Unknown History Ziprasidone HCl [Geodon] 80 mg PO BID 09/22/16 09/23/16 Unknown History Insulin Detemir [Levemir VIAL] 25 unit SQ QHS #1 vial 09/23/16 Unknown Rx Insulin Aspart [NovoLOG Flexpen] 1 dose SQ AC PRN #1 pen 09/24/16 Unknown Rx Insulin Glargine [Lantus VIAL] 25 unit SUB-Q QHS 30 Days units 09/24/16 Unknown Rx Nicotine [Habitrol] 21 mg TD QDAY #30 patch 09/24/16 Unknown Rx Insulin Regular, Human [HumuLIN R] 100 unit SQ AC #1 units 04/02/17 Unknown Rx Syringe-Needle,Insulin,0.5 ml 1 each MC UNK 30 Days #100 04/10/17 Unknown Rx [Insulin Syringe/Needle 0.5 ML] disp.syrin Sulfamethoxazole/Trimethoprim 1 each PO BID #14 tablet 05/26/17 Unknown Rx [Bactrim DS TAB] Aspirin [Aspirin BABY CHEW TAB] 81 mg PO QDAY #30 tab.chew 06/12/17 Unknown Rx AtorvaSTATin [Lipitor] 40 mg PO QHS #30 tablet 06/12/17 Unknown Rx Clopidogrel [Plavix] 75 mg PO QDAY #30 tablet 06/12/17 Unknown Rx Pantoprazole [Protonix] 40 mg PO QDAY #30 tablet 06/12/17 Unknown Rx metroNIDAZOLE [Flagyl] 500 mg PO Q8HR #21 tablet 06/13/17 Unknown Rx Active Meds: Active Medications Acetaminophen (Tylenol) 650 mg PO Q4H PRN PRN Reason: Pain MILD(1-3)/Fever >100.5/COELHO Aspirin (Baby Aspirin) 81 mg PO QDAY ARYAN Atorvastatin Calcium (Lipitor) 40 mg PO QHS ARYAN Clopidogrel Bisulfate (Plavix) 75 mg PO QDAY ARYAN Dextrose (D50w (25gm) Syringe) 50 ml IV PRN PRN PRN Reason: Hypoglycemia Duloxetine HCl (Cymbalta) 90 mg PO DAILY ARYAN Enoxaparin Sodium (Lovenox) 40 mg SUB-Q QDAY ARYAN Insulin Glargine (Lantus) 25 units SUB-Q QHS [facility] Insulin Human Lispro (Humalog) 0 unit SUB-Q AC ARYAN; Protocol Insulin Human Regular (Humulin R) 0 units SUB-Q HS ARYAN; Protocol Ondansetron HCl (Zofran) 4 mg IV Q8H PRN PRN Reason: Nausea And Vomiting Last Admin: 06/15/17 01:56 Dose: 4 mg Oxycodone/Acetaminophen (Percocet 5/325) 1 tab PO Q4H PRN PRN Reason: Pain, Moderate (4-6) Last Admin: 06/15/17 01:56 Dose: 1 tab Pantoprazole Sodium (Protonix) 40 mg PO QDAY ARYAN Pregabalin (Lyrica) 300 mg PO BID ARYAN Sodium Chloride (Sodium Chloride Flush Syringe 10 Ml) 10 ml IV BID ARYAN Sodium Chloride (Sodium Chloride Flush Syringe 10 Ml) 10 ml IV PRN PRN PRN Reason: LINE FLUSH Trazodone HCl (Desyrel) 150 mg PO QHS ARYAN Ziprasidone (Geodon) 80 mg PO BID ARYAN Exam - Physical Exam Narrative exam: Gen. appearance: Patient lying in bed, no apparent distress HEENT: Normocephalic, atraumatic, pupils equally round and reactive to light, extraocular movement intact, and no sclericterus,. No JVD or thyromegaly or nodule,neck supple, no carotid bruit ,mucous membranes moist, no exudate or erythema Heart: S1, S2, regular rate and rhythm Lungs: Clear to auscultation bilaterally, breathing comfortable Abdomen: Positive bowel sounds, nontender, nondistended, no organomegaly Extremity: No edema, cyanosis, clubbing Skin: No rash, nodules, warm, dry Neuro: Oriented 3, cranial nerves II-12 intact, speech is fluent, motor and sensory intact - Constitutional Vitals: Temp Pulse Resp BP Pulse Ox 98 F 79 19 109/80 95 06/14/17 18:36 06/15/17 00:30 06/15/17 00:30 06/15/17 00:30 06/15/17 00:30 Results - Labs CBC & Chem 7: 06/14/17 19:13 06/14/17 19:13 Labs: Abnormal lab results 06/14/17 06/14/17 06/15/17 Range/Units 19:13 19:13 00:00 WBC 11.7 H (4.5-11.0) K/mm3 MCV 75 L (79-97) fl MCH 24 L (28-32) pg RDW 18.0 H (13.2-15.2) % Seg Neutrophils # 8.2 H (1.8-7.7) K/mm3 D-Dimer 358.36 H (0-234) ng/mlDDU Sodium 134 L (137-145) mmol/L Chloride 95.2 L (98-107) mmol/L Carbon Dioxide 20 L (22-30) mmol/L Glucose 276 H (65-100) mg/dL - Imaging and Cardiology EKG: image reviewed Chest x-ray: image reviewed Assessment and Plan Assessment Unstable angina with atypical features Coronary artery disease Bipolar Diabetes Plan Admit to [facility] to consult, consult cardiology to appropriate outpatient medication DVT prophylaxis, Percocet for pain
--- NOTE | 2017-06-15 03:25 | XRay Report ---
FINAL REPORT EXAM: XR CHEST 1V AP HISTORY: cp COMPARISON: Chest x-ray from June 11, 2017. FINDINGS: Frontal view(s) of the chest obtained. Cardiac silhouette within normal limits. No gross consolidation or effusion. No pneumothorax. IMPRESSION: No grossly acute findings. Nodule seen on recent chest CT not visualized by today's x-ray. Follow-up chest CT as delineated on CT of the chest report from June 13, 2017.
[2017-06-15 03:47] LABS: Creatine Kinase MB 2.3 ng/mL (0.0-4.0)
[2017-06-15 06:50] LABS: Creatine Kinase MB 2.2 ng/mL (0.0-4.0)
[2017-06-15] MEDS ORDERED: HumaLOG SUB-Q SCH (07:30)
[2017-06-15] MEDS: CYMBALTA PO SCH (10:31)
[2017-06-15] MEDS: LYRICA PO SCH ×2 (10:32→22:15)
[2017-06-15] MEDS: PLAVIX PO SCH (10:33)
[2017-06-15] MEDS: PROTONIX PO SCH (10:33)
[2017-06-15] MEDS: BABY ASPIRIN PO SCH (10:34)
[2017-06-15] MEDS: LOVENOX SUB-Q SCH (10:34)
[2017-06-15] MEDS: SODIUM CHLORIDE FLUSH SYRINGE 10 ML IV SCH ×2 (10:35→22:00)
[2017-06-15] MEDS: HumaLOG SUB-Q SCH ×2 (12:48→16:45)
--- NOTE | 2017-06-15 13:20 | Consultation ---
History of Present Illness Consult date: 06/15/17 Requesting physician: MARQUES GRIFFITH Consult reason: chest pain History of present illness: The pt is a 37 YO female with a past medical history significant for CAD s/p STEMI with PCI of RCA 06/01/2017 at [facility], HTN, DM, lupus, marijuana use, tobacco use, noncompliance. She was seen by our practice for the first time on a recent hospitalization at [facility]. She presented with c/o chest pain since yesterday. She reports that she was cleaning her house yesterday at 2PM when she noted the onset of constant, midsternal, nonexertional, nonradiating "crushing" chest pain. She reports that she took 800mg Ibuprofen and SL nitro x 4 with no relief of her pain and thus she decided to seek medical attention. She denies any associated SOB, palpitations, n/v, dipahoresis , dizziness or syncope. She admits that she has missed 3 or more doses of her Plavix since her PCI because she believes that her Plavix may have an interaction with the marijuana that she smokes daily. Chapin are negative for AMI, ECG with no acute ischemic changes. Of note, pt was hospitalized at [facility] from 06/11/2017 - 06/13/2017 for evaluation/ management of atypical chest pain. She underwent stress test on 06/13/2017 which was equivocal for ischemia due to artifact, but likely nonischemic. Given atypical nature of chest pain, current resolution of chest pain, Chapin negative for AMI and ECG with no acute ischemic changes, continuation of medical management was recommended at that time. Echo done 06/12/2017 showed EF 50-55%, basal inferior wall hypokinesis, trace MR, trace TR. Past History Past Medical History: acute ND, CAD, diabetes, hypertension, other (lupus) Social history: Lives alone, smoking (tobacco and marijuana) Medications and Allergies Allergies Allergy/AdvReac Type Severity Reaction Status Date / Time egg Allergy Hives Verified 04/02/17 13:13 tramadol HCl [From Ultram] Allergy Hives Verified 04/02/17 13:13 vancomycin Allergy Hives Verified 04/02/17 13:13 Home Medications Medication Instructions Recorded Confirmed Last Taken Type Pregabalin [Lyrica] 300 mg PO BID 09/22/16 06/15/17 Unknown History Trazodone HCl 150 mg PO QHS 09/22/16 06/15/17 Unknown History Ziprasidone HCl [Geodon] 80 mg PO BID 09/22/16 06/15/17 Unknown History Insulin Glargine [Lantus VIAL] 25 unit SUB-Q QHS 30 Days units 09/24/16 Unknown Rx Nicotine [Habitrol] 21 mg TD QDAY #30 patch 09/24/16 06/15/17 Unknown Rx Insulin Regular, Human [HumuLIN R] 100 unit SQ AC #1 units 04/02/17 06/15/17 Unknown Rx Aspirin [Aspirin BABY CHEW TAB] 81 mg PO QDAY #30 tab.chew 06/12/17 06/15/17 Unknown Rx AtorvaSTATin [Lipitor] 40 mg PO QHS #30 tablet 06/12/17 06/15/17 Unknown Rx Clopidogrel [Plavix] 75 mg PO QDAY #30 tablet 06/12/17 06/15/17 Unknown Rx Pantoprazole [Protonix] 40 mg PO QDAY #30 tablet 06/12/17 06/15/17 Unknown Rx Zolpidem [Ambien] 10 mg PO QHS 06/15/17 06/15/17 Unknown History Active Meds: Active Medications Acetaminophen (Tylenol) 650 mg PO Q4H PRN PRN Reason: Pain MILD(1-3)/Fever >100.5/COELHO Aspirin (Baby Aspirin) 81 mg PO QDAY [facility] Last Admin: 06/15/17 10:34 Dose: 81 mg Atorvastatin Calcium (Lipitor) 40 mg PO QHS [facility] Clopidogrel Bisulfate (Plavix) 75 mg PO QDAY [facility] Last Admin: 06/15/17 10:33 Dose: 75 mg Dextrose (D50w (25gm) Syringe) 50 ml IV PRN PRN PRN Reason: Hypoglycemia Duloxetine HCl (Cymbalta) 90 mg PO DAILY [facility] Last Admin: 06/15/17 10:31 Dose: 90 mg Enoxaparin Sodium (Lovenox) 40 mg SUB-Q QDAY [facility] Last Admin: 06/15/17 10:34 Dose: 40 mg Insulin Glargine (Lantus) 25 units SUB-Q QHS [facility] Insulin Human Lispro (Humalog) 0 unit SUB-Q [facility]; Protocol Last Admin: 06/15/17 12:48 Dose: 6 unit Insulin Human Regular (Humulin R) 0 units SUB-Q HS [facility]; Protocol Ondansetron HCl (Zofran) 4 mg IV Q8H PRN PRN Reason: Nausea And Vomiting Last Admin: 06/15/17 01:56 Dose: 4 mg Oxycodone/Acetaminophen (Percocet 5/325) 1 tab PO Q4H PRN PRN Reason: Pain, Moderate (4-6) Last Admin: 06/15/17 01:56 Dose: 1 tab Pantoprazole Sodium (Protonix) 40 mg PO QDAY [facility] Last Admin: 06/15/17 10:33 Dose: 40 mg Pregabalin (Lyrica) 300 mg PO BID [facility] Last Admin: 06/15/17 10:32 Dose: 300 mg Sodium Chloride (Sodium Chloride Flush Syringe 10 Ml) 10 ml IV BID [facility] Last Admin: 06/15/17 10:35 Dose: 10 ml Sodium Chloride (Sodium Chloride Flush Syringe 10 Ml) 10 ml IV PRN PRN PRN Reason: LINE FLUSH Trazodone HCl (Desyrel) 150 mg PO QHS [facility] Ziprasidone (Geodon) 80 mg PO BID [facility] Review of Systems Constitutional: no weight loss, no weight gain, no fever, no chills, no sweats Ears, nose, mouth and throat: no ear pain, no nose pain Cardiovascular: chest pain, no orthopnea, no palpitations, no rapid/irregular heart beat, no edema, no syncope, no lightheadedness, no shortness of breath, no dyspnea on exertion, no leg edema Respiratory: no cough, no shortness of breath, no dyspnea on exertion, no congestion, no wheezing, no pain on inspiration Gastrointestinal: no abdominal pain, no nausea, no vomiting, no diarrhea, no constipation, no change in bowel habits Genitourinary Female: no pelvic pain, no flank pain, no dysuria, no urinary frequency, no urgency Musculoskeletal: no neck stiffness, no neck pain, no shooting arm pain, no arm numbness/tingling, no low back pain, no shooting leg pain, no leg numbness/ tingling, no redness of joints Integumentary: no rash, no pruritis, no redness, no sores, no wounds Neurological: no head injury, no paralysis, no weakness, no parathesias, no numbness, no tingling, no seizures, no syncope Psychiatric: no anxiety Endocrine: no cold intolerance, no heat intolerance Hematologic/Lymphatic: no easy bruising, no easy bleeding, no lymphadenopathy Allergic/Immunologic: no urticaria, no wheezing, no persistent infections Physical Examination Vital Signs Temp Pulse Resp BP Pulse Ox 98 F 107 H 20 102/66 98 06/14/17 18:36 06/14/17 18:36 06/14/17 18:36 06/14/17 18:36 06/14/17 18:36 General appearance: no acute distress HEENT: Positive: PERRL, Normocephaly, Mucus Membranes Moist Neck: Positive: neck supple, trachea midline Cardiac: Positive: Reg Rate and Rhythm, S1/S2 Lungs: Positive: clear to auscultation Neuro: Positive: Grossly Intact Abdomen: Positive: Soft. Negative: Tender Skin: Positive: Clear. Negative: Rash Musculoskeletal: No Fluid Collection, No Pain, Normal Range of Motion Extremities: Absent: edema Results 06/14/17 19:13 06/14/17 19:13 Cardiac Enzymes 06/15/17 06/15/17 Range/Units 03:30 06:11 CK-MB (CK-2) 2.3 2.2 (0.0-4.0) ng/mL CBC 06/14/17 Range/Units 19:13 WBC 11.7 H (4.5-11.0) K/mm3 RBC 4.41 (3.65-5.03) M/mm3 Hgb 10.8 (10.1-14.3) gm/dl Hct 32.9 (30.3-42.9) % Plt Count 433 (140-440) K/mm3 Lymph # 2.7 (1.2-5.4) K/mm3 [place] # 0.6 (0.0-0.8) K/mm3 Eos # 0.2 (0.0-0.4) K/mm3 Baso # 0.0 (0.0-0.1) K/mm3 Comprehensive Metabolic Panel 06/14/17 Range/Units 19:13 Sodium 134 L (137-145) mmol/L Potassium 4.0 (3.6-5.0) mmol/L Chloride 95.2 L (98-107) mmol/L Carbon Dioxide 20 L (22-30) mmol/L BUN 12 (7-17) mg/dL Creatinine 0.7 (0.7-1.2) mg/dL Glucose 276 H (65-100) mg/dL Calcium 8.9 (8.4-10.2) mg/dL - Imaging and Cardiology Echo: report reviewed (06/12/2017 showed EF 50-55%, basal inferior wall hypokinesis, trace MR, trace TR. ) Cardiac cath: report reviewed (s/p STEMI with PCI of RCA 06/01/2017 at [facility]) EKG: report reviewed, image reviewed EKG interpretations - Telemetry EKG Rhythm: Sinus Rhythm - EKG Sinus rhythms and dysrhythmias: sinus rhythm Myocardial infarction: inferior ND (old age inde Assessment and Plan Assessment: Chest pain, atypical - ECG with NAF; Chapin negative for AMI; chest CTA 06/13/2017 negative for PE CAD s/p STEMI with PCI of RCA 06/01/2017 at [facility] H/o HTN DM Lupus Marijuana use / tobacco use - cessation encouraged Noncompliance Plan: No plans for repeat ischemic evaluation at this time. Currently stable cardiac status. Cont present cardiac regimen, including ASA, plavix, lipitor. No BB at this time given current borderline hypotension. Importance of medication compliance and smoking cessation reiterated. Assessment and plan reviewed with pt at bedside. The patient has been seen in conjunction with Dr. Esqueda who agrees with the assessment and plan of care.
--- NOTE | 2017-06-15 15:15 | Progress Note ---
<DIANE MEJIA - Last Filed: 06/15/17 15:07> Assessment and Plan Assessment and plan: 37 year old woman with History of coronary artery disease, diabetes, bipolar comes to emergency room for evaluation of chest pain. The patient was just discharged from the hospital for chest pain evaluation, she had a CT chest and a stress test and echocardiogram. Atypical Chest pain Appears to be musculosketal in nature Cardiology consulted to rule out cardiac etiology Diabetes Mellitus ADA diet, Accu cheks ACHS, sliding scale insulin CAD Continue plavix Bipolar disorder Continue outpatient medication DVT prophylaxis Lovenox History Interval history: Patient seen and examined Continues to complain of chest pain, reproducible on exam Denies SOB,NV. Labs and nursing notes reviewed Hospitalist Physical - Constitutional Vitals: Temp Pulse Resp BP Pulse Ox 98.3 F 76 20 102/66 98 06/15/17 07:52 06/15/17 11:38 06/15/17 07:52 06/15/17 11:38 06/15/17 11:38 General appearance: Present: no acute distress, well-nourished, obese - EENT Eyes: Present: PERRL, EOM intact ENT: hearing intact, clear oral mucosa, poor dentition - Neck Neck: Present: supple, normal ROM - Respiratory Respiratory effort: normal Respiratory: bilateral: CTA - Cardiovascular Rhythm: regular Heart Sounds: Present: S1 & S2 - Extremities Extremities: no ischemia, No edema - Abdominal General gastrointestinal: soft, non-tender, non-distended - Integumentary Integumentary: Present: clear, warm, dry - Psychiatric Psychiatric: appropriate mood/affect, intact judgment & insight, cooperative - Neurologic Neurologic: CNII-XII intact, moves all extremities - Allied Health Allied health notes reviewed: nursing Results - Labs CBC & Chem 7: 06/14/17 19:13 06/14/17 19:13 Labs: Laboratory Last Values WBC 11.7 K/mm3 (4.5-11.0) H 06/14/17 19:13 RBC 4.41 M/mm3 (3.65-5.03) 06/14/17 19:13 Hgb 10.8 gm/dl (10.1-14.3) 06/14/17 19:13 Hct 32.9 % (30.3-42.9) 06/14/17 19:13 MCV 75 fl (79-97) L 06/14/17 19:13 MCH 24 pg (28-32) L 06/14/17 19:13 MCHC 33 % (30-34) 06/14/17 19:13 RDW 18.0 % (13.2-15.2) H 06/14/17 19:13 Plt Count 433 K/mm3 (140-440) 06/14/17 19:13 Lymph % (Auto) 23.3 % (13.4-35.0) 06/14/17 19:13 [place] % (Auto) 5.0 % (0.0-7.3) 06/14/17 19:13 Eos % (Auto) 1.4 % (0.0-4.3) 06/14/17 19:13 Baso % (Auto) 0.4 % (0.0-1.8) 06/14/17 19:13 Lymph # 2.7 K/mm3 (1.2-5.4) 06/14/17 19:13 [place] # 0.6 K/mm3 (0.0-0.8) 06/14/17 19:13 Eos # 0.2 K/mm3 (0.0-0.4) 06/14/17 19:13 Baso # 0.0 K/mm3 (0.0-0.1) 06/14/17 19:13 Seg Neutrophils % 69.9 % (40.0-70.0) 06/14/17 19:13 Seg Neutrophils # 8.2 K/mm3 (1.8-7.7) H 06/14/17 19:13 D-Dimer 358.36 ng/mlDDU (0-234) H 06/15/17 00:00 Sodium 134 mmol/L (137-145) L 06/14/17 19:13 Potassium 4.0 mmol/L (3.6-5.0) 06/14/17 19:13 Chloride 95.2 mmol/L (98-107) L 06/14/17 19:13 Carbon Dioxide 20 mmol/L (22-30) L 06/14/17 19:13 Anion Gap 23 mmol/L 06/14/17 19:13 BUN 12 mg/dL (7-17) 06/14/17 19:13 Creatinine 0.7 mg/dL (0.7-1.2) 06/14/17 19:13 Estimated GFR > 60 ml/min 06/14/17 19:13 BUN/Creatinine Ratio 17 % 06/14/17 19:13 Glucose 276 mg/dL (65-100) H 06/14/17 19:13 POC Glucose 260 (70-105) H 06/15/17 11:48 Calcium 8.9 mg/dL (8.4-10.2) 06/14/17 19:13 Total Creatine Kinase 134 units/L (30-135) 06/15/17 06:11 CK-MB (CK-2) 2.2 ng/mL (0.0-4.0) 06/15/17 06:11 CK-MB (CK-2) Rel Index 1.6 (0-4) 06/15/17 06:11 Troponin T < 0.010 ng/mL (0.00-0.029) 06/15/17 06:11 <BIBI GILBERT M - Last Filed: 06/15/17 16:57> Assessment and Plan Assessment and plan: I saw and evaluated the patient. I agree with the findings and the plan of care as documented in the PA's progress note. Hospitalist Physical - Constitutional Vitals: Temp Pulse Resp BP Pulse Ox 98.3 F 76 18 102/66 98 06/15/17 07:52 06/15/17 11:38 06/15/17 10:00 06/15/17 11:38 06/15/17 11:38 Results - Labs CBC & Chem 7: 06/14/17 19:13 06/14/17 19:13 Labs: Laboratory Last Values WBC 11.7 K/mm3 (4.5-11.0) H 06/14/17 19:13 RBC 4.41 M/mm3 (3.65-5.03) 06/14/17 19:13 Hgb 10.8 gm/dl (10.1-14.3) 06/14/17 19:13 Hct 32.9 % (30.3-42.9) 06/14/17 19:13 MCV 75 fl (79-97) L 06/14/17 19:13 MCH 24 pg (28-32) L 06/14/17 19:13 MCHC 33 % (30-34) 06/14/17 19:13 RDW 18.0 % (13.2-15.2) H 06/14/17 19:13 Plt Count 433 K/mm3 (140-440) 06/14/17 19:13 Lymph % (Auto) 23.3 % (13.4-35.0) 06/14/17 19:13 [place] % (Auto) 5.0 % (0.0-7.3) 06/14/17 19:13 Eos % (Auto) 1.4 % (0.0-4.3) 06/14/17 19:13 Baso % (Auto) 0.4 % (0.0-1.8) 06/14/17 19:13 Lymph # 2.7 K/mm3 (1.2-5.4) 06/14/17 19:13 [place] # 0.6 K/mm3 (0.0-0.8) 06/14/17 19:13 Eos # 0.2 K/mm3 (0.0-0.4) 06/14/17 19:13 Baso # 0.0 K/mm3 (0.0-0.1) 06/14/17 19:13 Seg Neutrophils % 69.9 % (40.0-70.0) 06/14/17 19:13 Seg Neutrophils # 8.2 K/mm3 (1.8-7.7) H 06/14/17 19:13 D-Dimer 358.36 ng/mlDDU (0-234) H 06/15/17 00:00 Sodium 134 mmol/L (137-145) L 06/14/17 19:13 Potassium 4.0 mmol/L (3.6-5.0) 06/14/17 19:13 Chloride 95.2 mmol/L (98-107) L 06/14/17 19:13 Carbon Dioxide 20 mmol/L (22-30) L 06/14/17 19:13 Anion Gap 23 mmol/L 06/14/17 19:13 BUN 12 mg/dL (7-17) 06/14/17 19:13 Creatinine 0.7 mg/dL (0.7-1.2) 06/14/17 19:13 Estimated GFR > 60 ml/min 06/14/17 19:13 BUN/Creatinine Ratio 17 % 06/14/17 19:13 Glucose 276 mg/dL (65-100) H 06/14/17 19:13 POC Glucose 260 (70-105) H 06/15/17 11:48 Calcium 8.9 mg/dL (8.4-10.2) 06/14/17 19:13 Total Creatine Kinase 134 units/L (30-135) 06/15/17 06:11 CK-MB (CK-2) 2.2 ng/mL (0.0-4.0) 06/15/17 06:11 CK-MB (CK-2) Rel Index 1.6 (0-4) 06/15/17 06:11 Troponin T < 0.010 ng/mL (0.00-0.029) 06/15/17 06:11
[2017-06-15] MEDS: GEODON PO SCH ×2 (18:28→22:15)
[2017-06-15] MEDS ORDERED: DESYREL PO SCH (22:00)
[2017-06-15] MEDS ORDERED: NON-FORMULARY (Insulin Detemir [Levemir Vial] 25 UNIT) SQ SCH (22:00)
[2017-06-15] MEDS ORDERED: LANTUS SUB-Q SCH (22:00)
[2017-06-15] MEDS ORDERED: HumuLIN R SUB-Q SCH (22:00)
[2017-06-16 07:17] LABS: Alanine Aminotransferase 15 units/L (7-56); Albumin 3.2 g/dL (3.9-5); BUN/Creatinine Ratio 13; Blood Urea Nitrogen 8 mg/dL (7-17); Calcium 8.5 mg/dL (8.4-10.2); Hemolysis Index 6
[2017-06-16 09:04] VITALS: BP 115/57
[2017-06-16] MEDS: PLAVIX PO SCH (10:05)
[2017-06-16] MEDS: LYRICA PO SCH (10:06)
[2017-06-16] MEDS: CYMBALTA PO SCH (10:06)
--- NOTE | 2017-06-16 10:06 | Discharge Summary ---
<DIANE MEJIA - Last Filed: 06/16/17 16:10> Providers - Providers Date of Admission: 06/15/17 00:43 Date of discharge: 06/16/17 Attending physician: BIBI GILBERT MD 06/15/17 00:43 Consult to Physician [CONS] Routine Consulting Provider: NING VILLAR Reason For Exam: cp Place consult to:: Dr. Villar Notified:: nurse Phone number called:: overhead page Was contact made?: Yes If yes, spoke with:: Sofya Time called:: 09:38 Primary care physician: DURAN STRICKLAND Hospitalization Condition: Stable Pertinent studies: No grossly acute findings. Nodule seen on recent chest CT not visualized by today's x-ray. Follow-up chest CT as delineated on CT of the chest report from June 13, 2017. Hospital course: 37 year old woman with History of coronary artery disease, diabetes, bipolar comes to emergency room for evaluation of chest pain. The patient was just discharged from the hospital for chest pain evaluation, she had a CT chest and a stress test and echocardiogram. Patient underwent cardiac workup starting with serial CE which were negative. Cardiology services for consultation and patient had a stress test which was equivocal for ischemia due to artifact but likely nonischemic per cardiology on 06/13/16. Echocardiogram revealed ejection fraction of 50-55% on 06/12/16. No further cardiac workup was indicated at this time Patient was clinically stable for discharge from a cardiac standpoint as her symptoms had subsided and her studies were negative. Patient advised to follow- up with cardiology services within 1-2 weeks of discharge Discharge diagnoses Atypical Chest pain likely musculoskeletal Diabetes mellitus Coronary artery disease Bipolar disorder DVT prophylaxis Disposition: DC-01 TO HOME OR SELFCARE Time spent for discharge: 32 minutes Core Measure Documentation - Palliative Care Palliative Care/ Comfort Measures: Not Applicable - Core Measures Any of the following diagnoses?: none Exam - Constitutional Vitals: Temp Pulse Resp BP Pulse Ox 98.6 F 63 18 115/57 100 06/16/17 07:34 06/16/17 07:34 06/16/17 07:34 06/16/17 07:34 06/16/17 07:34 General appearance: Present: no acute distress, well-nourished - EENT Eyes: Present: PERRL ENT: hearing intact, clear oral mucosa - Neck Neck: Present: supple, normal ROM - Respiratory Respiratory effort: normal Respiratory: bilateral: CTA - Cardiovascular Heart Sounds: Present: S1 & S2. Absent: rub, click - Extremities Extremities: pulses symmetrical, No edema Peripheral Pulses: within normal limits - Abdominal General gastrointestinal: Present: soft, non-tender, non-distended, normal bowel sounds Female genitourinary: Present: normal - Integumentary Integumentary: Present: clear, warm, dry - Musculoskeletal Musculoskeletal: gait normal, strength equal bilaterally - Psychiatric Psychiatric: appropriate mood/affect, intact judgment & insight - Neurologic Neurologic: CNII-XII intact, moves all extremities Plan Diet: low fat, low cholesterol, low salt Follow up with: DURAN STRICKLAND MD [Primary Care Provider] - 3-5 Days NING VILLAR MD [Staff Physician] - 7 Days Prescriptions: oxyCODONE /ACETAMINOPHEN [Percocet 5/325 mg] 1 tab PO Q4H PRN #14 tablet PRN Reason: Pain, Moderate (4-6) <BIBI GILBERT - Last Filed: 06/17/17 20:59> Providers - Providers Date of Admission: 06/15/17 00:43 Attending physician: BIBI GILBERT MD 06/15/17 00:43 Consult to Physician [CONS] Routine Consulting Provider: NING VILLAR Reason For Exam: cp Place consult to:: Dr. Villar Notified:: nurse Phone number called:: overhead page Was contact made?: Yes If yes, spoke with:: Sofya Time called:: 09:38 Primary care physician: DURAN STRICKLAND Exam - Constitutional Vitals: Temp Pulse Resp BP Pulse Ox 98.6 F 92 H 18 115/57 99 06/16/17 07:34 06/16/17 10:00 06/16/17 11:07 06/16/17 07:34 06/16/17 10:00 Plan Diet: low fat, low cholesterol, low salt
[2017-06-16] MEDS: BABY ASPIRIN PO SCH (10:07)
[2017-06-16] MEDS: PROTONIX PO SCH (10:07)
[2017-06-16] MEDS: PERCOCET 5/325 PO PRN (10:07)
[2017-06-16] MEDS: LOVENOX SUB-Q SCH (10:07)
[2017-06-16] MEDS: GEODON PO SCH (10:08)
[2017-06-16] MEDS: SODIUM CHLORIDE FLUSH SYRINGE 10 ML IV SCH (10:09)
--- NOTE | 2017-06-16 10:38 | Progress Note ---
Assessment and Plan Assessment: Chest pain, atypical - ECG with NAF; Chapin negative for AMI; chest CTA 06/13/2017 negative for PE CAD s/p STEMI with PCI of RCA 06/01/2017 at [facility] H/o HTN DM Lupus Marijuana use / tobacco use - cessation encouraged Noncompliance Plan: Currently stable cardiac status. Initiate Lopressor 12.5mg PO BID. Cont all other present cardiac regimen, including ASA, plavix, lipitor. Pt may discharge home from cardiology standpoint. Follow up in our [place] office with Dr. Escamilla on 06/27/2017 @ 10:00AM. Assessment and plan reviewed with pt at bedside. The patient has been seen in conjunction with Dr. Esqueda who agrees with the assessment and plan of care. Subjective Date of service: 06/16/17 Principal diagnosis: cp Interval history: pt resting comfortably at bedside, c/o some epigastric pain overnight. states she is ready to go home. Objective Last Vital Signs Temp 98.6 F 06/16/17 07:34 Pulse 63 06/16/17 07:34 Resp 20 06/16/17 10:07 BP 115/57 06/16/17 07:34 Pulse Ox 100 06/16/17 07:34 - Physical Examination General: No Apparent Distress HEENT: Positive: PERRL, Normocephaly, Mucus Membranes Moist Neck: Positive: neck supple, trachea midline Cardiac: Positive: Reg Rate and Rhythm, S1/S2 Lungs: Positive: clear to auscultation Neuro: Positive: Grossly Intact Abdomen: Positive: Soft. Negative: Tender Skin: Positive: Clear. Negative: Rash Musculoskeletal: No Fluid Collection, No Pain, Normal Range of Motion Extremities: Absent: edema - Labs and Meds Cardiac Enzymes 06/16/17 Range/Units 06:17 AST 13 (5-40) units/L Comprehensive Metabolic Panel 06/16/17 Range/Units 06:17 Sodium 140 (137-145) mmol/L Potassium 4.0 (3.6-5.0) mmol/L Chloride 99.4 (98-107) mmol/L Carbon Dioxide 25 (22-30) mmol/L BUN 8 (7-17) mg/dL Creatinine 0.6 L (0.7-1.2) mg/dL Glucose 98 (65-100) mg/dL Calcium 8.5 (8.4-10.2) mg/dL AST 13 (5-40) units/L ALT 15 (7-56) units/L Alkaline Phosphatase 84 (35-129) units/L Total Protein 6.4 (6.3-8.2) g/dL Albumin 3.2 L (3.9-5) g/dL - Imaging and Cardiology EKG: report reviewed, image reviewed Echo: report reviewed (06/12/2017 showed EF 50-55%, basal inferior wall hypokinesis, trace MR, trace TR. ) Cardiac cath: report reviewed (s/p STEMI with PCI of RCA 06/01/2017 at [facility]) - Telemetry EKG Rhythm: Sinus Rhythm - EKG Sinus rhythms and dysrhythmias: sinus rhythm Myocardial infarction: inferior ND (old age inde
[2017-06-16] MEDS ORDERED: LOPRESSOR PO SCH (11:00)
[2017-06-16] MEDS: HumaLOG SUB-Q SCH ×2 (11:30→15:55)
== END 2017-06-16 15:05 | disposition home or self-care (01) ==
LOC: ED 18:22 → 4A 06-15 00:43 → INTOOBSV 06-15 00:43
PROVIDERS: ADMIT Internal Medicine; ATTEND Internal Medicine
DX: I25.110 Atherosclerotic heart disease of native coronary artery with unstable angina pectoris (principal); I10 Essential (primary) hypertension; E11.9 Type 2 diabetes mellitus without complications; F17.210 Nicotine dependence, cigarettes, uncomplicated; F31.9 Bipolar disorder, unspecified; I25.2 Old myocardial infarction; Z79.4 Long term (current) use of insulin; Z95.5 Presence of coronary angioplasty implant and graft
CPT/HCPCS: 36415; 71045; 80048; 80053; 82550; 82553; 82962; 84484; 85025; 85379; 93005; 93010; 96374; 99285; A9270; G0378; J1650; J2405; J1815

== ENCOUNTER 2017-07-29 04:06 | Emergency (ER) | payer MEDICARE ==
[2017-07-29] MEDS ORDERED: NACL 0.9% 1000 ML 1,000 ML IV ONE (04:46)
[2017-07-29] MEDS ORDERED: ZOFRAN IV ONE (04:46)
[2017-07-29] MEDS ORDERED: MORPHINE IV ONE (04:46)
[2017-07-29] MEDS ORDERED: HumuLIN R IV ONE (04:47)
[2017-07-29 05:02] VITALS: BP 145/85
[2017-07-29 05:45] LABS: Hemoglobin 10.9 gm/dl (10.1-14.3); Mean Corpuscular HGB Conc 31 % (30-34); Mean Corpuscular Volume 75 fl (79-97); Platelet Count 292 K/mm3 (140-440); Red Blood Count 4.68 M/mm3 (3.65-5.03); Red Cell Distribution Width 17.3 % (13.2-15.2)
[2017-07-29 05:52] LABS: Mean Corpuscular Hemoglobin 23 pg (28-32)
[2017-07-29 05:59] LABS: BUN/Creatinine Ratio 18; Blood Urea Nitrogen 11 mg/dL (7-17); Calcium 9.1 mg/dL (8.4-10.2); Hemolysis Index 27
--- NOTE | 2017-07-29 06:01 | Emergency Department Report ---
ED General Adult HPI - General Chief complaint: Nausea/Vomiting/Diarrhea Stated complaint: N/V/HYPOGLYCEMIA Time Seen by Provider: 07/29/17 04:39 Source: patient, EMS Mode of arrival: Stretcher Limitations: No Limitations - History of Present Illness Initial comments: Ms. Barron is a 37-year-old female with history of insulin-dependent diabetes, lupus, coronary artery disease and bipolar affective disorder. She presents with 2 days of nausea and vomiting. She has low-grade temperature with mild headache. She has severe diffuse joint pain. She denies chest pain. SHe denies abdominal pain. Gradual onset of symptoms. She has been taking her insulin in spite of the vomiting. - Related Data Home Medications Medication Instructions Recorded Confirmed Last Taken Pregabalin [Lyrica] 300 mg PO BID 09/22/16 07/10/17 Unknown Trazodone HCl 150 mg PO QHS 09/22/16 07/10/17 Unknown Ziprasidone HCl [Geodon] 80 mg PO BID 09/22/16 07/10/17 07/09/17 Zolpidem [Ambien] 10 mg PO QHS 06/15/17 07/10/17 07/09/17 Previous Rx's Medication Instructions Recorded Last Taken Type Insulin Glargine [Lantus VIAL] 25 unit SUB-Q QHS 30 Days units 09/24/16 Unknown Rx Nicotine [Habitrol] 21 mg TD QDAY #30 patch 09/24/16 Unknown Rx Insulin Regular, Human [HumuLIN R] 100 unit SQ AC #1 units 04/02/17 07/09/17 Rx Aspirin [Aspirin BABY CHEW TAB] 81 mg PO QDAY #30 tab.chew 06/12/17 Unknown Rx AtorvaSTATin [Lipitor] 40 mg PO QHS #30 tablet 06/12/17 Unknown Rx Clopidogrel [Plavix] 75 mg PO QDAY #30 tablet 06/12/17 Unknown Rx Pantoprazole [Protonix TAB] 40 mg PO QDAY #30 tablet 06/12/17 07/09/17 Rx DULoxetine [Cymbalta] 90 mg PO DAILY capsule 06/16/17 Unknown Rx Cephalexin [Keflex] 500 mg PO Q6HR #28 capsule 07/13/17 Unknown Rx Sulfamethoxazole/Trimethoprim 1 each PO BID #14 tablet 07/13/17 Unknown Rx [Bactrim DS TAB] Oxycodone HCl/Acetaminophen 1 each PO Q6HR PRN #15 tablet 07/14/17 Unknown Rx [Percocet 10/325 mg] Allergies Allergy/AdvReac Type Severity Reaction Status Date / Time egg Allergy Hives Verified 04/02/17 13:13 tramadol HCl [From Ultram] Allergy Hives Verified 04/02/17 13:13 vancomycin Allergy Hives Verified 04/02/17 13:13 ED Review of Systems ROS: Stated complaint: N/V/HYPOGLYCEMIA Other details as noted in HPI Comment: All other systems reviewed and negative Constitutional: fever, malaise Respiratory: denies: cough Cardiovascular: denies: chest pain ED Past Medical Hx - Past Medical History Previous Medical History?: Yes Hx Hypertension: No Hx CVA: No Hx Heart Attack/AMI: Yes (2017) Hx Congestive Heart Failure: No Hx Diabetes: Yes Hx Deep Vein Thrombosis: No Hx Pulmonary Embolism: No Hx GERD: No Hx Liver Disease: No Hx Renal Disease: No Hx Sickle Cell Disease: No Hx Arthritis: No Hx Headaches / Migraines: No Hx Seizures: No Hx Kidney Stones: No Hx Psychiatric Treatment: Yes (BIPOLAR Boderline personality/ Schizo effective) Hx Asthma: No Hx COPD: No Hx Tuberculosis: No Hx Dementia: No Hx HIV: No Additional medical history: LUPUS, Hydroadenitis - Surgical History Past Surgical History?: Yes Hx Coronary Stent: Yes Hx Open Heart Surgery: No Hx Pacemaker: No Hx Internal Defibrillator: No Hx Cholecystectomy: No Hx Appendectomy: No Hx Breast Surgery: Yes (breast reduction) Additional Surgical History: Breast reduction bilateral,excisional surg. for abscess - Social History Smoking Status: Never Smoker Substance Use Type: Prescribed - Medications Home Medications: Home Medications Medication Instructions Recorded Confirmed Last Taken Type Pregabalin [Lyrica] 300 mg PO BID 09/22/16 07/10/17 Unknown History Trazodone HCl 150 mg PO QHS 09/22/16 07/10/17 Unknown History Ziprasidone HCl [Geodon] 80 mg PO BID 09/22/16 07/10/17 07/09/17 History Insulin Glargine [Lantus VIAL] 25 unit SUB-Q QHS 30 Days units 09/24/16 Unknown Rx Nicotine [Habitrol] 21 mg TD QDAY #30 patch 09/24/16 07/10/17 Unknown Rx Insulin Regular, Human [HumuLIN R] 100 unit SQ AC #1 units 04/02/17 07/10/1710/19 Rx Aspirin [Aspirin BABY CHEW TAB] 81 mg PO QDAY #30 tab.chew 06/12/17 06/15/17 Unknown Rx AtorvaSTATin [Lipitor] 40 mg PO QHS #30 tablet 06/12/17 06/15/17 Unknown Rx Clopidogrel [Plavix] 75 mg PO QDAY #30 tablet 06/12/17 06/15/17 Unknown Rx Pantoprazole [Protonix TAB] 40 mg PO QDAY #30 tablet 06/12/17 07/10/17 07/09/17 Rx Zolpidem [Ambien] 10 mg PO QHS 06/15/17 07/10/17 07/09/17 History DULoxetine [Cymbalta] 90 mg PO DAILY capsule 06/16/17 Unknown Rx Cephalexin [Keflex] 500 mg PO Q6HR #28 capsule 07/13/17 Unknown Rx Sulfamethoxazole/Trimethoprim 1 each PO BID #14 tablet 07/13/17 Unknown Rx [Bactrim DS TAB] Oxycodone HCl/Acetaminophen 1 each PO Q6HR PRN #15 tablet 07/14/17 Unknown Rx [Percocet 10/325 mg] ED Physical Exam - General Limitations: No Limitations General appearance: alert, in no apparent distress - Head Head exam: Present: atraumatic, normocephalic - Eye Eye exam: Present: normal appearance - ENT ENT exam: Present: mucous membranes moist - Neck Neck exam: Present: normal inspection. Absent: tenderness, meningismus - Respiratory Respiratory exam: Present: normal lung sounds bilaterally. Absent: respiratory distress, wheezes, rales, rhonchi - Cardiovascular Cardiovascular Exam: Present: regular rate, normal rhythm. Absent: systolic murmur, diastolic murmur, rubs, gallop - GI/Abdominal GI/Abdominal exam: Present: soft, normal bowel sounds. Absent: distended, tenderness, guarding, rebound - Extremities Exam Extremities exam: Present: normal inspection - Back Exam Back exam: Present: normal inspection - Neurological Exam Neurological exam: Present: alert, oriented X3 - Psychiatric Psychiatric exam: Present: normal affect, normal mood - Skin Skin exam: Present: warm, dry, intact, normal color. Absent: rash ED Course Vital Signs 07/29/17 05:02 Temperature 99.1 F Pulse Rate 82 Respiratory 22 Rate Blood Pressure 145/85 [Left] O2 Sat by Pulse 100 Oximetry ED Medical Decision Making - Lab Data Result diagrams: 07/29/17 05:30 07/29/17 05:30 - Medical Decision Making Ms. Snyder presents with joint pain, nausea, vomiting. Will evalute for possible DKA. My colleague will determine final disposition. Critical care attestation.: If time is entered above; I have spent that time in minutes in the direct care of this critically ill patient, excluding procedure time. ED Disposition Clinical Impression: IDDM (insulin dependent diabetes mellitus), Lupus (systemic lupus erythematosus ), Vomiting Disposition: DC/TX-70 ANOTHER TYPE HLTHCARE Is pt being admited?: No Does the pt Need Aspirin: No Condition: Stable
[2017-07-29 06:34] LABS: Anisocytosis 1+; Band Neutrophils # (Manual) 0.3 K/mm3; Basophils % (Manual) 0 % (0.0-1.8); Eosinophils % (Manual) 0 % (0.0-4.3); Total Cells Counted 100
[2017-07-29] MEDS ORDERED: HumuLIN R SUB-Q ONE (07:34)
[2017-07-29] MEDS ORDERED: PERCOCET 5/325 PO ONE (07:40)
[2017-07-29] MEDS ORDERED: SUBLIMAZE IV ONE (07:41)
[2017-07-29] MEDS ORDERED: SUBLIMAZE IV NR (08:00)
--- NOTE | 2017-07-29 08:02 | Emergency Department Report ---
Blank Doc - Documentation Documentation: Reevaluated patient patient does not have DKA. Patient was complaining of more pain and received pain medicine. Afterwards patient probably decided to leave AMA after receiving pain medication. Patient would not discuss as to why she wanted to leave AGAINST MEDICAL ADVICE.
== END 2017-07-29 08:37 | disposition other institution (70) ==
LOC: ED 04:06
DX: E11.649 Type 2 diabetes mellitus with hypoglycemia without coma (principal); M32.9 Systemic lupus erythematosus, unspecified; F31.9 Bipolar disorder, unspecified; Z79.4 Long term (current) use of insulin; Z79.82 Long term (current) use of aspirin
CPT/HCPCS: 36415; 80048; 82805; 82962; 85007; 85025; 96361; 96372; 96374; 96375; 99284; J2270; J2405; J7030; J1815

== ENCOUNTER 2017-08-06 21:52 | Inpatient (IN) | payer MEDICARE ==
[2017-08-06] MEDS ORDERED: ZOFRAN IV ONE (22:05)
[2017-08-06] MEDS ORDERED: ASPIRIN PO ONE (22:05)
[2017-08-06] MEDS ORDERED: MORPHINE IV ONE (22:05)
[2017-08-06] MEDS ORDERED: NITRO-BID 2% TP ONE (22:05)
--- NOTE | 2017-08-06 22:11 | Emergency Department Report ---
HPI - General Time Seen by Provider: 08/06/17 21:57 - HPI HPI: Room 5 The patient is a 37-year-old female presenting with a chief complaint of chest pain. The patient is currently at [facility] for suicidal ideation ( currently voluntary; patient denies any actual suicide attempts). The patient states about 4 hours ago she began developing substernal chest pain described as "crushing" in nature. States the pain radiates to her left upper extremity and neck. The patient states her pain is associated with shortness of breath, nausea/vomiting and diaphoresis. The patient states she had an WI approximately 4 weeks ago at [facility] where she had a cardiac stent placed. The patient states 2 weeks after her WI she had chest pain again and had to come to the ED when at [facility] where an in-stent occlusion was observed and angioplasty was performed. The patient states she has been compliant with her Plavix. Location: Substernal chest Duration: Constant 4 hours Quality: "Crushing" Severity: Moderate Modifying factors: [see above] Context: [see above] Mode of transportation: [not driving] ED Past Medical Hx - Past Medical History Hx Heart Attack/AMI: Yes (2018) Hx Diabetes: Yes Hx Psychiatric Treatment: Yes (BIPOLAR Boderline personality/ Schizo effective) Additional medical history: LUPUS, hidradenitis - Surgical History Hx Coronary Stent: Yes Hx Breast Surgery: Yes (breast reduction) Additional Surgical History: Breast reduction bilateral,excisional surg. for abscess - Family History Family history: no significant - Social History Smoking Status: Current Every Day Smoker (1 pack per day) Substance Use Type: Marijuana - Medications Home Medications: Home Medications Medication Instructions Recorded Confirmed Last Taken Type Pregabalin [Lyrica] 300 mg PO BID 09/22/16 07/10/17 Unknown History Trazodone HCl 150 mg PO QHS 09/22/16 07/10/17 Unknown History Ziprasidone HCl [Geodon] 80 mg PO BID 09/22/16 07/10/17 07/09/17 History Insulin Glargine [Lantus VIAL] 25 unit SUB-Q QHS 30 Days units 09/24/16 Unknown Rx Nicotine [Habitrol] 21 mg TD QDAY #30 patch 09/24/16 07/10/17 Unknown Rx Insulin Regular, Human [HumuLIN R] 100 unit SQ AC #1 units 04/02/17 07/10/1710/19 Rx Aspirin [Aspirin BABY CHEW TAB] 81 mg PO QDAY #30 tab.chew 06/12/17 06/15/17 Unknown Rx AtorvaSTATin [Lipitor] 40 mg PO QHS #30 tablet 06/12/17 06/15/17 Unknown Rx Clopidogrel [Plavix] 75 mg PO QDAY #30 tablet 06/12/17 06/15/17 Unknown Rx Pantoprazole [Protonix TAB] 40 mg PO QDAY #30 tablet 06/12/17 07/10/17 07/09/17 Rx Zolpidem [Ambien] 10 mg PO QHS 06/15/17 07/10/17 07/09/17 History DULoxetine [Cymbalta] 90 mg PO DAILY capsule 06/16/17 Unknown Rx Cephalexin [Keflex] 500 mg PO Q6HR #28 capsule 07/13/17 Unknown Rx Sulfamethoxazole/Trimethoprim 1 each PO BID #14 tablet 07/13/17 Unknown Rx [Bactrim DS TAB] Oxycodone HCl/Acetaminophen 1 each PO Q6HR PRN #15 tablet 07/14/17 Unknown Rx [Percocet 10/325 mg] ED Review of Systems ROS: Stated complaint: CP Other details as noted in HPI Constitutional: diaphoresis Respiratory: shortness of breath Cardiovascular: chest pain Gastrointestinal: nausea, vomiting Physical Exam - Physical Exam Physical Exam: GENERAL: The patient is well-developed well-nourished female lying on stretcher not appearing to be in acute distress. [] HEENT: Normocephalic. Atraumatic. Extraocular motions are intact. Patient has moist mucous membranes. NECK: Supple. Trachea midline CHEST/LUNGS: Clear to auscultation. There is no respiratory distress noted. HEART/CARDIOVASCULAR: Regular. There is no tachycardia. There is no gallop rub or murmur. ABDOMEN: Abdomen is soft, nontender. Patient has normal bowel sounds. There is no abdominal distention. SKIN: There is no rash. There is no diaphoresis. NEURO: The patient is awake, alert, and oriented. The patient is cooperative. The patient has normal speech MUSCULOSKELETAL: There is no evidence of acute injury. ED Medical Decision Making - Lab Data Result diagrams: 08/06/17 22:41 08/06/17 22:41 Laboratory Tests 08/06/17 08/06/17 08/06/17 22:41 22:41 22:41 WBC 8.4 RBC 4.20 Hgb 9.7 L Hct 31.1 MCV 74 L MCH 23 L MCHC 31 RDW 17.4 H Plt Count 311 Lymph % (Auto) 43.6 H [place] % (Auto) 6.3 Eos % (Auto) 2.0 Baso % (Auto) 1.3 Lymph # 3.7 [place] # 0.5 Eos # 0.2 Baso # 0.1 Seg Neutrophils % 46.8 Seg Neutrophils # 3.9 PT 11.8 L INR 0.83 L APTT 24.1 L Sodium 137 Potassium 4.2 Chloride 98.0 Carbon Dioxide 25 Anion Gap 18 BUN 6 L Creatinine 0.6 L Estimated GFR > 60 BUN/Creatinine Ratio 10 Glucose 297 H Calcium 8.8 Total Creatine Kinase 147 H CK-MB (CK-2) 1.7 CK-MB (CK-2) Rel Index 1.1 Troponin T < 0.010 - EKG Data -: EKG Interpreted by Me EKG shows normal: sinus rhythm Rate: normal - EKG Data When compared to previous EKG there are: no significant change Interpretation: unchanged when compared t (07/10/2017), nonspecific ST-T wave cristobal (T-wave inversions and Q waves in leads 2, 3 and aVF) - Radiology Data Radiology results: report reviewed (chest x-ray), image reviewed (chest x-ray) interpreted by me: Chest x-ray-no focal infiltrates, no pneumothorax [facility], [place] [address] [place] [address] XRay Report Signed Patient: CARLOS FLORES MR#: [id number] : 1980 Acct:[id number] Age/Sex: 37 / F ADM Date: 08/06/17 Loc: ED Attending Dr: Ordering Physician: QUENTIN LERNER MD Date of Service: 08/06/17 Procedure(s): XR chest 1V ap Accession Number(s): [id number] cc: QUENTIN LERNER MD Fluoro Time In Minutes: FINAL REPORT PROCEDURE: Chest. TECHNIQUE: Portable AP view. HISTORY: Chest pain. COMPARISON: Chest 07/10/2017. FINDINGS: The heart and mediastinum appear normal. The lungs are clear and well expanded. There are no pleural effusions. The soft tissues and regional skeleton are unremarkable. IMPRESSION: Negative portable chest. Transcribed By: MRM Dictated By: VIRGILIO NICHOLAS MD Electronically Authenticated By: VIRGILIO NICHOLAS MD Signed Date/Time: 08/06/172240 DD/ 40 TD/TT: 08/06/172240 - Differential Diagnosis ACS, GERD, pericarditis, costochondritis Critical care attestation.: If time is entered above; I have spent that time in minutes in the direct care of this critically ill patient, excluding procedure time. ED Disposition Clinical Impression: Chest pain Disposition: OP ADMIT IP TO THIS HOSP Is pt being admited?: Yes Does the pt Need Aspirin: Yes Condition: Fair Instructions: Chest Pain (ED) Referrals: PRIMARY CARE, [Primary Care Provider] - 3-5 Days Time of Disposition: 23:15 (hospitalist paged (Dr Leija))
--- NOTE | 2017-08-06 22:47 | XRay Report ---
FINAL REPORT PROCEDURE: Chest. TECHNIQUE: Portable AP view. HISTORY: Chest pain. COMPARISON: Chest 07/10/2017. FINDINGS: The heart and mediastinum appear normal. The lungs are clear and well expanded. There are no pleural effusions. The soft tissues and regional skeleton are unremarkable. IMPRESSION: Negative portable chest.
[2017-08-06 22:53] LABS: Basophils # (Auto) 0.1 K/mm3 (0.0-0.1); Basophils % (Auto) 1.3 % (0.0-1.8); Eosinophils # (Auto) 0.2 K/mm3 (0.0-0.4); Hematocrit 31.1 % (30.3-42.9); Hemoglobin 9.7 gm/dl (10.1-14.3); Lymphocytes # (Auto) 3.7 K/mm3 (1.2-5.4); Lymphocytes % (Auto) 43.6 % (13.4-35.0); Mean Corpuscular HGB Conc 31 % (30-34); Mean Corpuscular Volume 74 fl (79-97); Monocytes # (Auto) 0.5 K/mm3 (0.0-0.8); Monocytes % (Auto) 6.3 % (0.0-7.3); Platelet Count 311 K/mm3 (140-440); Red Cell Distribution Width 17.4 % (13.2-15.2)
[2017-08-06 23:00] LABS: Mean Corpuscular Hemoglobin 23 pg (28-32)
[2017-08-06 23:04] LABS: INR 0.83 (0.87-1.13)
[2017-08-06 23:05] LABS: Partial Thromboplastin Time 24.1 Sec. (24.2-36.6)
[2017-08-06 23:09] LABS: Creatine Kinase MB 1.7 ng/mL (0.0-4.0)
[2017-08-06 23:10] LABS: BUN/Creatinine Ratio 10; Blood Urea Nitrogen 6 mg/dL (7-17); Calcium 8.8 mg/dL (8.4-10.2); Hemolysis Index 5
[2017-08-07] MEDS ORDERED: SODIUM CHLORIDE FLUSH SYRINGE 10 ML IV PRN (00:10)
[2017-08-07] MEDS ORDERED: ZOFRAN IV PRN (00:10)
[2017-08-07] MEDS ORDERED: HABITROL TD ONE (00:10)
[2017-08-07] MEDS ORDERED: MILK OF MAGNESIA PO PRN (00:10)
[2017-08-07] MEDS ORDERED: TYLENOL PO PRN (00:10)
[2017-08-07] MEDS ORDERED: NACL 0.9% 1000 ML 1,000 ML IV ONE (00:14)
[2017-08-07] MEDS ORDERED: NITROSTAT SL PRN (00:15)
[2017-08-07] MEDS ORDERED: D50W (25GM) Syringe IV PRN (00:16)
[2017-08-07] MEDS ORDERED: NACL 0.9% 1000 ML 1,000 ML IV SCH (01:00)
[2017-08-07] MEDS ORDERED: NACL 0.9% 1000 ML 1,000 ML ONE (02:20)
--- NOTE | 2017-08-07 02:24 | History and Physical Report ---
History of Present Illness Date of examination: 08/07/17 Date of admission: 08/07/17 00:10 Chief complaint: Chest pain History of present illness: Patient is a 37 year old -Citizen Of [place] female with a history of CAD and diabetes mellitus who presented to the ED on account of few hours history of midsternal chest pain. She described it as aching in nature, rated 7 out of 10 , constant in duration and radiates into the left arm. No known aggravating or relieving factors. She has associated shortness of breath, diaphoresis, palpitation, headaches, nausea without vomiting and dizziness. She denies fever , chills, leg swelling, cough, syncope or loss of consciousness. Patient has a recent stress test done which was reported as negative. Past History Past Medical History: acute PA (status post stent placement), diabetes, other ( Lupus, hidradenitis suppurativa, bipolar disorder, schizoaffective disorder) Past Surgical History: Other (incision and drainage of abscess, breast reduction , cardiac stent placement) Social history: smoking (for 20 years. She uses marijuana daily, but denies other illicit drug use and alcohol use) Family history: other (reviewed and noncontributory) Medications and Allergies Allergies Allergy/AdvReac Type Severity Reaction Status Date / Time egg Allergy Hives Verified 04/02/17 13:13 tramadol HCl [From Ultram] Allergy Hives Verified 04/02/17 13:13 vancomycin Allergy Hives Verified 04/02/17 13:13 Home Medications Medication Instructions Recorded Confirmed Last Taken Type Pregabalin [Lyrica] 300 mg PO BID 09/22/16 07/10/17 Unknown History Trazodone HCl 150 mg PO QHS 09/22/16 07/10/17 Unknown History Ziprasidone HCl [Geodon] 80 mg PO BID 09/22/16 07/10/17 07/09/17 History Insulin Glargine [Lantus VIAL] 25 unit SUB-Q QHS 30 Days units 09/24/16 Unknown Rx Nicotine [Habitrol] 21 mg TD QDAY #30 patch 09/24/16 07/10/17 Unknown Rx Insulin Regular, Human [HumuLIN R] 100 unit SQ AC #1 units 04/02/17 07/10/1710/19 Rx Aspirin [Aspirin BABY CHEW TAB] 81 mg PO QDAY #30 tab.chew 06/12/17 06/15/17 Unknown Rx AtorvaSTATin [Lipitor] 40 mg PO QHS #30 tablet 06/12/17 06/15/17 Unknown Rx Clopidogrel [Plavix] 75 mg PO QDAY #30 tablet 06/12/17 06/15/17 Unknown Rx Pantoprazole [Protonix TAB] 40 mg PO QDAY #30 tablet 06/12/17 07/10/17 07/09/17 Rx Zolpidem [Ambien] 10 mg PO QHS 06/15/17 07/10/17 07/09/17 History DULoxetine [Cymbalta] 90 mg PO DAILY capsule 06/16/17 Unknown Rx Cephalexin [Keflex] 500 mg PO Q6HR #28 capsule 07/13/17 Unknown Rx Sulfamethoxazole/Trimethoprim 1 each PO BID #14 tablet 07/13/17 Unknown Rx [Bactrim DS TAB] Oxycodone HCl/Acetaminophen 1 each PO Q6HR PRN #15 tablet 07/14/17 Unknown Rx [Percocet 10/325 mg] Active Meds: Active Medications Acetaminophen (Tylenol) 650 mg PO Q4H PRN PRN Reason: Pain MILD(1-3)/Fever >100.5/COEHLO Aspirin (Baby Aspirin) 81 mg PO QDAY [facility] Dextrose (D50w (25gm) Syringe) 50 ml IV PRN PRN PRN Reason: Hypoglycemia Docusate Sodium (Colace) 100 mg PO BID [facility] Famotidine (Pepcid) 20 mg PO BID [facility] Sodium Chloride (Nacl 0.9% 1000 Ml) 1,000 mls @ 125 mls/hr IV DIRECT [facility] Insulin Glargine (Lantus) 15 units SUB-Q BIDDIAB [facility] Insulin Human Lispro (Humalog) 0 unit SUB-Q ACHS [facility]; Protocol Magnesium Hydroxide (Milk Of Magnesia) 30 ml PO Q4H PRN PRN Reason: Constipation Morphine Sulfate (Morphine) 2 mg IV Q4H PRN PRN Reason: Pain, Moderate (4-6) Nicotine (Habitrol) 21 mg TD DAILY [facility] Nitroglycerin (Nitrostat) 0.4 mg SL .Q5MIN PRN PRN Reason: Chest Pain Ondansetron HCl (Zofran) 4 mg IV Q8H PRN PRN Reason: Nausea And Vomiting Oxycodone/Acetaminophen (Percocet 5/325) 1 tab PO Q6H PRN PRN Reason: Pain, Moderate (4-6) Sodium Chloride (Sodium Chloride Flush Syringe 10 Ml) 10 ml IV BID [facility] Sodium Chloride (Sodium Chloride Flush Syringe 10 Ml) 10 ml IV PRN PRN PRN Reason: LINE FLUSH Review of Systems All systems: negative (except as documented in the HPI, all other systems were reviewed and negative) Exam - Constitutional Vitals: Temp Pulse Resp BP Pulse Ox 97.7 F 62 20 114/53 98 08/07/17 01:24 08/07/17 01:24 08/07/17 01:24 08/07/17 01:24 08/07/17 01:54 General appearance: Present: no acute distress - EENT Eyes: Present: PERRL, EOM intact ENT: hearing intact, clear oral mucosa - Neck Neck: Present: supple, normal ROM - Respiratory Respiratory effort: normal Respiratory: bilateral: CTA - Cardiovascular Rhythm: regular Heart Sounds: Present: S1 & S2. Absent: rub, click - Extremities Extremities: pulses symmetrical, No edema - Abdominal General gastrointestinal: Present: soft, non-tender, non-distended, normal bowel sounds - Integumentary Integumentary: Present: clear, warm, dry - Musculoskeletal Musculoskeletal: gait normal, strength equal bilaterally - Psychiatric Psychiatric: appropriate mood/affect - Neurologic Neurologic: CNII-XII intact, moves all extremities Results - Labs CBC & Chem 7: 08/06/17 22:41 08/06/17 22:41 Labs: Laboratory Last Values WBC 8.4 K/mm3 (4.5-11.0) 08/06/17 22:41 RBC 4.20 M/mm3 (3.65-5.03) 08/06/17 22:41 Hgb 9.7 gm/dl (10.1-14.3) L 08/06/17 22:41 Hct 31.1 % (30.3-42.9) 08/06/17 22:41 MCV 74 fl (79-97) L 08/06/17 22:41 MCH 23 pg (28-32) L 08/06/17 22:41 MCHC 31 % (30-34) 08/06/17 22:41 RDW 17.4 % (13.2-15.2) H 08/06/17 22:41 Plt Count 311 K/mm3 (140-440) 08/06/17 22:41 Lymph % (Auto) 43.6 % (13.4-35.0) H 08/06/17 22:41 [place] % (Auto) 6.3 % (0.0-7.3) 08/06/17 22:41 Eos % (Auto) 2.0 % (0.0-4.3) 08/06/17 22:41 Baso % (Auto) 1.3 % (0.0-1.8) 08/06/17 22:41 Lymph # 3.7 K/mm3 (1.2-5.4) 08/06/17 22:41 Heard # 0.5 K/mm3 (0.0-0.8) 08/06/17 22:41 Eos # 0.2 K/mm3 (0.0-0.4) 08/06/17 22:41 Baso # 0.1 K/mm3 (0.0-0.1) 08/06/17 22:41 Seg Neutrophils % 46.8 % (40.0-70.0) 08/06/17 22:41 Seg Neutrophils # 3.9 K/mm3 (1.8-7.7) 08/06/17 22:41 PT 11.8 Sec. (12.2-14.9) L 08/06/17 22:41 INR 0.83 (0.87-1.13) L 08/06/17 22:41 APTT 24.1 Sec. (24.2-36.6) L 08/06/17 22:41 Sodium 137 mmol/L (137-145) 08/06/17 22:41 Potassium 4.2 mmol/L (3.6-5.0) 08/06/17 22:41 Chloride 98.0 mmol/L (98-107) 08/06/17 22:41 Carbon Dioxide 25 mmol/L (22-30) 08/06/17 22:41 Anion Gap 18 mmol/L 08/06/17 22:41 BUN 6 mg/dL (7-17) L 08/06/17 22:41 Creatinine 0.6 mg/dL (0.7-1.2) L 08/06/17 22:41 Estimated GFR > 60 ml/min 08/06/17 22:41 BUN/Creatinine Ratio 10 % 08/06/17 22:41 Glucose 297 mg/dL (65-100) H 08/06/17 22:41 POC Glucose 182 (70-105) H 08/07/17 01:45 Calcium 8.8 mg/dL (8.4-10.2) 08/06/17 22:41 Total Creatine Kinase 147 units/L (30-135) H 08/06/17 22:41 CK-MB (CK-2) 1.7 ng/mL (0.0-4.0) 08/06/17 22:41 CK-MB (CK-2) Rel Index 1.1 (0-4) 08/06/17 22:41 Troponin T < 0.010 ng/mL (0.00-0.029) 08/06/17 22:41 Assessment and Plan Assessment and plan: Unstable angina -Resume home medications when reconciled -Will continue serial troponin and EKG monitoring -Patient's die setter consulted Insulin-dependent diabetes mellitus type 2 with hyperglycemia -Patient will be placed on both basal and prandial insulin regimen History of lupus -No acute exacerbation History of bipolar and schizoaffective disorder -Resume home medications when reconciled Prophylaxis DVT prophylaxis with SCD and GI prophylaxis with famotidine 35 minutes spent coordinating care
[2017-08-07] MEDS: MORPHINE IV PRN ×2 (02:50→23:01)
[2017-08-07] MEDS: HumaLOG SUB-Q SCH ×5 (08:14→21:57)
[2017-08-07] MEDS: LANTUS SUB-Q SCH ×2 (08:16→17:44)
[2017-08-07] MEDS: BABY ASPIRIN PO SCH (10:43)
[2017-08-07] MEDS: COLACE PO SCH ×2 (10:44→21:57)
[2017-08-07] MEDS: HABITROL TD SCH (10:44)
[2017-08-07] MEDS: PEPCID PO SCH ×2 (10:45→21:56)
[2017-08-07] MEDS: SODIUM CHLORIDE FLUSH SYRINGE 10 ML IV SCH ×2 (10:46→21:58)
[2017-08-07] MEDS: PERCOCET 5/325 PO PRN ×2 (11:42→19:39)
[2017-08-07] MEDS ORDERED: NACL 0.9% 500 ML 500 ML IV SCH (13:00)
--- NOTE | 2017-08-07 18:59 | Progress Note ---
Assessment and Plan Unstable angina -Resumed home medications -Will continue serial troponin and EKG monitoring -Patient's community outreach director consulted, plan for cardiac cath tomorrow Insulin-dependent diabetes mellitus type 2 with hyperglycemia -Patient placed on both basal and prandial insulin regimen History of lupus -No acute exacerbation History of bipolar and schizoaffective disorder -Resume home medications when reconciled Prophylaxis DVT prophylaxis with SCD and GI prophylaxis with famotidine Subjective Date of service: 08/07/17 Interval history: pt seen and examined denies chest pain now she went outside of the hospital and was found smoking She was explained that she cannot get out of the hospital and smoke around She stated that she will be compliant with the hospital policy Objective - Constitutional Vitals: Vital Signs - 12hr 08/07/17 09:12 O2 Sat by Pulse 100 Oximetry General appearance: Present: no acute distress, well-nourished - EENT Eyes: PERRL, EOM intact ENT: hearing intact, clear oral mucosa Ears: bilateral: normal - Neck Neck: supple, normal ROM - Respiratory Respiratory effort: normal Respiratory: bilateral: CTA - Cardiovascular Rhythm: regular Heart Sounds: Present: S1 & S2. Absent: gallop, rub Extremities: pulses intact, No edema, normal color, Full ROM - Gastrointestinal General gastrointestinal: Present: soft, non-tender, non-distended, normal bowel sounds - Integumentary Integumentary: clear, warm, dry - Musculoskeletal Musculoskeletal: 1, strength equal bilaterally - Neurologic Neurologic: moves all extremities - Psychiatric Psychiatric: memory intact, appropriate mood/affect, intact judgment & insight - Labs CBC & Chem 7: 08/06/17 22:41 08/06/17 22:41 Labs: Abnormal lab results 08/06/17 08/06/17 08/06/17 Range/Units 22:41 22:41 22:41 Hgb 9.7 L (10.1-14.3) gm/dl MCV 74 L (79-97) fl MCH 23 L (28-32) pg RDW 17.4 H (13.2-15.2) % Lymph % (Auto) 43.6 H (13.4-35.0) % PT 11.8 L (12.2-14.9) Sec. INR 0.83 L (0.87-1.13) APTT 24.1 L (24.2-36.6) Sec. BUN 6 L (7-17) mg/dL Creatinine 0.6 L (0.7-1.2) mg/dL Glucose 297 H (65-100) mg/dL POC Glucose (70-105) Total Creatine Kinase 147 H (30-135) units/L 08/07/17 Range/Units 01:45 Hgb (10.1-14.3) gm/dl MCV (79-97) fl MCH (28-32) pg RDW (13.2-15.2) % Lymph % (Auto) (13.4-35.0) % PT (12.2-14.9) Sec. INR (0.87-1.13) APTT (24.2-36.6) Sec. BUN (7-17) mg/dL Creatinine (0.7-1.2) mg/dL Glucose (65-100) mg/dL POC Glucose 182 H (70-105) Total Creatine Kinase (30-135) units/L
[2017-08-07] MEDS ORDERED: AMBIEN PO PRN (22:57)
[2017-08-08] MEDS: PERCOCET 5/325 PO PRN (02:00)
[2017-08-08] MEDS: MORPHINE IV PRN (04:36)
--- NOTE | 2017-08-08 05:21 | Consultation ---
HISTORY OF PRESENT ILLNESS: The patient is 37-year-old -[place] female who was admitted to the [facility] and started having chest pain in the mammary area of 2 days duration. The pain is aching in nature, rated 7/10, radiating to the left arm, and it gets worse when she moves to the left side. She has some shortness of breath, headache, nausea, but no fever or chills. The patient gives a history that she had similar episode 6 weeks ago and was hospitalized at [facility] and was noted to have myocardial infarction and a stent was inserted according to her. Subsequently, she was hospitalized in July of this year with similar chest pain and had a Lexiscan nuclear imaging performed in June of this year, which showed equivocal findings was felt to be artifact. Echocardiogram was performed on 06/12/2017, which showed ejection fraction of 50 to 55%. Basal inferior wall is hypokinetic. The patient also has Lexiscan nuclear imaging performed on 06/13/2017, as mentioned above, it was equivocal for ischemia and was continued on medical therapy. The patient's other problems included diabetes mellitus of 5 to 6 years' duration, history of lupus since age 12, , history of hidradenitis, history of arthritis. PAST SURGICAL HISTORY: Included breast reduction. SOCIAL HISTORY: She still smokes 1 pack per day since age 16. Also, used to smoke pot with 3 to 4 days. REVIEW OF SYSTEMS: Denied any weight loss. No ear discharge. Chest pain as mentioned above. Occasional cough noted. No abdominal pain, no skin rash. No leg swelling. No fever, no chills. PHYSICAL EXAMINATION: GENERAL: The patient appears to be comfortable, in no acute distress. HEENT: Conjunctivae pink. Sclerae anicteric. NECK: Supple, no JVD. HEART: Regular, probably S4, no S3, no significant murmurs. LUNGS: Clear. ABDOMEN: Benign. EXTREMITIES: Without edema. NEUROLOGIC: Alert, oriented x 3. FINAL IMPRESSION: Chest pain, atypical with history of coronary stenting for myocardial infarction 6 weeks or more weeks ago. She had equivocal stress test in June of this year. Considering recurrent chest pain with her multiple risk factors, may benefit from diagnostic cardiac catheterization. Her chest pains appear to be atypical. LABORATORY DATA: Unremarkable except for anemia with hemoglobin of 9.7 g/dL. BUN is 6, creatinine 0.6. Other problems included diabetes mellitus, history of lupus, history of bipolar disorder, schizoaffective disorder, on medication. In addition, the patient is a diabetic. Uses marijuana on a regular basis in addition to chronic smoking. Discussed with the patient at this time, etiology of chest pain is not clear. Considering persistent pain, we would recommend diagnostic cardiac catheterization. She is aware of the option of medical therapy. The patient would like to proceed with cardiac catheterization for definitive diagnosis and treatment. Cardiac enzymes at this time appeared to be unremarkable. We will schedule her for the diagnostic cardiac catheterization. JOB# [id number] PEGGY/RUBENS
[2017-08-08 07:09] LABS: INR 0.86 (0.87-1.13); Partial Thromboplastin Time 26.9 Sec. (24.2-36.6)
[2017-08-08] MEDS ORDERED: PLAVIX ONE (07:54)
[2017-08-08] MEDS: LANTUS SUB-Q SCH (08:00)
[2017-08-08] MEDS: HumaLOG SUB-Q SCH (08:00)
[2017-08-08] MEDS ORDERED: NACL 0.9% 500 ML 500 ML ONE (08:08)
[2017-08-08] MEDS: PLAVIX PO SCH ×2 (08:24→16:31)
[2017-08-08] MEDS: BABY ASPIRIN PO SCH ×2 (08:25→09:00)
[2017-08-08] MEDS ORDERED: HEPARIN/NS 5000 UNIT/500ML(CATH LAB) 1,000 ML IR ONE (08:29)
[2017-08-08] MEDS ORDERED: HEPARIN 10,000 UNITS/10 ML ONE (08:29)
[2017-08-08] MEDS ORDERED: CALAN ONE (08:30)
[2017-08-08] MEDS ORDERED: XYLOCAINE 2% INFILTRATI ONE (08:30)
[2017-08-08] MEDS ORDERED: NITROGLYCERIN SYRINGE 0 ML ONE (08:30)
[2017-08-08] MEDS: PEPCID PO SCH (09:00)
[2017-08-08] MEDS: SUBLIMAZE ONE ×2 (09:29→09:38)
[2017-08-08] MEDS: VERSED ONE ×2 (09:30→09:31)
[2017-08-08] MEDS: SODIUM CHLORIDE FLUSH SYRINGE 10 ML IV SCH (10:00)
--- NOTE | 2017-08-08 12:41 | Progress Note ---
Assessment and Plan Assessment: Chest pain, atypical - currently resolved CAD s/p STEMI with PCI of RCA 06/01/2017 at [facility] H/o HTN DM Lupus Marijuana use / tobacco use - cessation encouraged Noncompliance - importance of compliance reiterated Plan: s/p LHC this AM which showed patent stent, patent coronaries. Currently stable cardiac status. Pt may discharge home from cardiology standpoint following completion of post-cath order set. Recommend continuation of home medication regimen, including ASA, plavix, lipitor, lopressor. Recommend follow up in our [place] office with Dr. Escamilla within 1-2 weeks of hospital discharge ([phone]). Assessment and plan reviewed with pt at bedside. The patient has been seen in conjunction with Dr. Escamilla who agrees with the assessment and plan of care. Subjective Date of service: 08/08/17 Principal diagnosis: chest pain Interval history: pt for LHC this am, no current cardiac complaints Objective Last Vital Signs Temp 98.3 F 08/08/17 04:27 Pulse 66 08/08/17 04:27 Resp 18 08/08/17 04:27 BP 139/93 08/08/17 04:27 Pulse Ox 99 08/08/17 04:27 - Physical Examination General: No Apparent Distress HEENT: Positive: PERRL, Normocephaly, Mucus Membranes Moist Neck: Positive: neck supple, trachea midline Cardiac: Positive: Reg Rate and Rhythm, S1/S2 Lungs: Positive: clear to auscultation Neuro: Positive: Grossly Intact, Cranial Nerve 2-12 Intact Abdomen: Positive: Soft. Negative: Tender Skin: Positive: Clear. Negative: Rash, Wound Musculoskeletal: No Fluid Collection, No Pain, Normal Range of Motion Extremities: Absent: edema - Labs and Meds Coagulation 08/08/17 Range/Units 06:19 PT 12.1 L (12.2-14.9) Sec. INR 0.86 L (0.87-1.13) APTT 26.9 (24.2-36.6) Sec. - Imaging and Cardiology EKG: report reviewed, image reviewed - Telemetry EKG Rhythm: Sinus Rhythm
--- NOTE | 2017-08-08 12:49 | Discharge Summary ---
Providers - Providers Date of Admission: 08/07/17 00:10 Date of discharge: 08/08/17 Attending physician: JOANNE MAYFIELD 08/07/17 00:18 Consult to Physician [CONS] Routine Comment: Consulting Provider: NORMA DUBOIS Physician Instructions: Reason For Exam: unstable angina Primary care physician: FIELD SERVICE REP Hospitalization Condition: Fair Hospital course: Patient is a 37 year old -Cypriot female with a history of CAD and diabetes mellitus who presented to the ED on account of few hours history of midsternal chest pain. She described it as aching in nature, rated 7 out of 10 , constant in duration and radiates into the left arm. No known aggravating or relieving factors. She has associated shortness of breath, diaphoresis, palpitation, headaches, nausea without vomiting and dizziness. She denies fever , chills, leg swelling, cough, syncope or loss of consciousness. Patient has a recent stress test done which was reported as negative. She was further evaluated by ethics manager and had cardiac cath showing normal coronaries. She was then discharged home in stable condition. Discharge diagnosis and management: /Atypical chest pain, likely muskuloskeletal -Patient's ethics manager consulted, had normal cardiac cath /Insulin-dependent diabetes mellitus type 2 with hyperglycemia -Patient managed with both basal and prandial insulin regimen /History of lupus -No acute exacerbation /History of bipolar and schizoaffective disorder -cont home medications and f/u outpt psych /Prophylaxis Given DVT prophylaxis with SCD and GI prophylaxis with famotidine Disposition: DC-01 TO HOME OR SELFCARE Time spent for discharge: 34 minutes Core Measure Documentation - Palliative Care Palliative Care/ Comfort Measures: Not Applicable - Core Measures Any of the following diagnoses?: none Exam - Constitutional Vitals: Temp Pulse Resp BP Pulse Ox 98.3 F 66 18 139/93 99 08/08/17 04:27 08/08/17 04:27 08/08/17 04:27 08/08/17 04:27 08/08/17 04:27 General appearance: Present: no acute distress, well-nourished - EENT Eyes: Present: PERRL ENT: hearing intact, clear oral mucosa - Neck Neck: Present: supple, normal ROM - Respiratory Respiratory effort: normal Respiratory: bilateral: CTA - Cardiovascular Heart Sounds: Present: S1 & S2. Absent: rub, click - Extremities Extremities: pulses symmetrical, No edema Peripheral Pulses: within normal limits - Abdominal General gastrointestinal: Present: soft, non-tender, non-distended, normal bowel sounds - Integumentary Integumentary: Present: clear, warm, dry - Musculoskeletal Musculoskeletal: gait normal, strength equal bilaterally - Psychiatric Psychiatric: appropriate mood/affect, intact judgment & insight - Neurologic Neurologic: CNII-XII intact, moves all extremities Plan Activity: advance as tolerated Weight Bearing Status: Weight Bear as Tolerated Diet: low fat, low salt, diabetic Follow up with: PRIMARY CARE, [Primary Care Provider] - 3-5 Days Forms: AMA Form
[2017-08-08 12:59] VITALS: BP 113/77
--- NOTE | 2017-08-08 14:31 | Cardiac Catherization Report ---
The patient is a 37-year-old female with a history of myocardial infarction and coronary intervention 2 months ago at an outside hospital, presents with atypical chest pain, has equivocal stress test on last admission in June and presently presents with atypical chest pain, but considering her previous coronary disease with persistent chest pain. It was felt that the patient needs diagnostic cardiac catheterization. She was given option of medical therapy versus diagnostic catheterization. The patient is willing to proceed with cardiac catheterization. The patient is aware of the procedure, potential complications and alternatives of therapy available. The patient was brought to the catheterization laboratory in a fasting condition. The right wrist area and forearm thoroughly cleansed with Betadine solution. Sterile drapes were applied. Local anesthesia was achieved using 2% Xylocaine. Right radial artery puncture was made using 21-gauge arterial puncture needle. Subsequently, 5-Libyan sheath was introduced. The patient received 3000 units of intravenous heparin and 5 mg of intra-arterial verapamil. Subsequently, using multipurpose catheter, left angiogram was performed using hand injection and right coronary angiograms were obtained using multipurpose catheter. A 5-Libyan TIG catheter was used to obtain the angiograms of her left coronary artery in multiple views. At the end of the procedure, catheter and sheath were removed and radial band was applied. The patient tolerated the procedure well. The patient was evaluated for moderate sedation prior to the procedure and she was found to be appropriate for moderate sedation and was given IV fentanyl and Versed starting at 9:30 and monitored electrocardiographically with pulse oximetry continuously and sedation ended at 9:47 a.m. The patient at the end of the procedure is oriented x 3 with no focal deficits and stable hemodynamically. Following findings were noted: 1. Right ventriculogram done in VAZQUEZ projection shows normal sized left ventricle with normal contractility. End-diastolic and systolic volumes are normal. Mitral regurgitation could not be evaluated. 2. Right coronary artery dominant vessel arises normally from right coronary cusp, it is widely patent stent in the mid part and rest of the RCA and its branch are angiographically smooth and normal. 3. Left coronary artery arises normally from left coronary cusp. Left main is long, smooth and normal. LAD curves around the apex. LAD and its branches, circumflex artery and its branch are angiographically smooth and normal. FINAL IMPRESSION: 1. Normal sized left ventricle with normal contractility. 2. Widely patent stent in the mid RCA. 3. Otherwise, rest of the coronaries is angiographically smooth and normal. 4. The patient tolerated the procedure well. No untoward complications are noted. The patient will be continued on risk factor modifications, will be continued on aspirin and Plavix in addition to statin. At this time, etiology of her chest pain is not clear. JOB# [id number] PEGGY/RUBENS
[2017-08-08] MEDS: HABITROL TD SCH (16:29)
[2017-08-08] MEDS: COLACE PO SCH (16:29)
== END 2017-08-08 15:50 | disposition home or self-care (01) | DRG 287 ==
LOC: ED 21:52 → 4A 08-07 00:10
PROVIDERS: ADMIT Internal Medicine; ATTEND Internal Medicine
PROC: 4A023N7 Measurement of Cardiac Sampling and Pressure, Left Heart, Percutaneous Approach (ICD-10-PCS; principal; 2017-08-08)
PROC: B2111ZZ Fluoroscopy of Multiple Coronary Arteries using Low Osmolar Contrast (ICD-10-PCS; 2017-08-08)
PROC: B2161ZZ Fluoroscopy of Right and Left Heart using Low Osmolar Contrast (ICD-10-PCS; 2017-08-08)
DX: R07.89 Other chest pain (principal); M32.9 Systemic lupus erythematosus, unspecified; F12.90 Cannabis use, unspecified, uncomplicated; E11.65 Type 2 diabetes mellitus with hyperglycemia; I25.10 Atherosclerotic heart disease of native coronary artery without angina pectoris; F25.0 Schizoaffective disorder, bipolar type; Z88.1 Allergy status to other antibiotic agents; Z91.012 Allergy to eggs; Z79.4 Long term (current) use of insulin; Z79.899 Other long term (current) drug therapy; Z95.5 Presence of coronary angioplasty implant and graft; Z91.14 Patient's other noncompliance with medication regimen; Z71.51 Drug abuse counseling and surveillance of drug abuser
CPT/HCPCS: 36415; 71045; 80048; 82550; 82553; 82962; 84484; 85025; 85610; 85730; 93005; 93010; 93458; A9270-GY; C1887; C1894; J1644; J1815; J2250; J2270; J2405; J3010; J7030; J7040; Q9967

== ENCOUNTER 2017-08-17 17:07 | Emergency (ER) | payer MEDICARE ==
[2017-08-17] MEDS ORDERED: NACL 0.9% 1000 ML 1,000 ML IV ONE ×2 (21:29→22:55)
[2017-08-17] MEDS ORDERED: ATIVAN IV ONE (22:57)
[2017-08-17] MEDS ORDERED: SUBLIMAZE IV ONE (22:57)
[2017-08-17] MEDS ORDERED: ZOFRAN ODT PO ONE (23:42)
[2017-08-17] MEDS ORDERED: MORPHINE IM ONE (23:42)
[2017-08-17 23:43] VITALS: BP 129/72
[2017-08-17] MEDS ORDERED: KEFLEX PO ONE (23:44)
--- NOTE | 2017-08-17 23:51 | Emergency Department Report ---
HPI - General Chief Complaint: Pain General Time Seen by Provider: 08/17/17 21:31 - HPI HPI: The patient is a 37-year-old female well-known to myself in this emergency department, who presents for evaluation of recurrence of long-standing left lower leg pain. The patient reports constant left medial thigh pain for the past 2 days ago throbbing in quality, exacerbated with movement, and associated with a small area of redness. The patient submits that she believes she has an infection of the leg again. The patient denies trauma to the leg, fever, chills , night sweats, open wound, paresthesias, or motor deficits in the legs. 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 for abscess - Social History Smoking Status: Current Every Day Smoker Substance Use Type: Marijuana - Medications Home Medications: Home Medications Medication Instructions Recorded Confirmed Last Taken Type Pregabalin [Lyrica] 300 mg PO BID 09/22/16 07/10/17 Unknown History Trazodone HCl 150 mg PO QHS 09/22/16 07/10/17 Unknown History Ziprasidone HCl [Geodon] 80 mg PO BID 09/22/16 07/10/17 07/09/17 History Insulin Glargine [Lantus VIAL] 25 unit SUB-Q QHS 30 Days units 09/24/16 Unknown Rx Nicotine [Habitrol] 21 mg TD QDAY #30 patch 09/24/16 07/10/17 Unknown Rx Insulin Regular, Human [HumuLIN R] 100 unit SQ AC #1 units 04/02/17 07/10/1710/19 Rx Aspirin [Aspirin BABY CHEW TAB] 81 mg PO QDAY #30 tab.chew 06/12/17 06/15/17 Unknown Rx AtorvaSTATin [Lipitor] 40 mg PO QHS #30 tablet 06/12/17 06/15/17 Unknown Rx Clopidogrel [Plavix] 75 mg PO QDAY #30 tablet 06/12/17 06/15/17 Unknown Rx Pantoprazole [Protonix TAB] 40 mg PO QDAY #30 tablet 06/12/17 07/10/17 07/09/17 Rx Zolpidem [Ambien] 10 mg PO QHS 06/15/17 07/10/17 07/09/17 History DULoxetine [Cymbalta] 90 mg PO DAILY capsule 06/16/17 Unknown Rx Cephalexin [Keflex] 500 mg PO Q6HR #28 capsule 07/13/17 Unknown Rx Sulfamethoxazole/Trimethoprim 1 each PO BID #14 tablet 07/13/17 Unknown Rx [Bactrim DS TAB] Oxycodone HCl/Acetaminophen 1 each PO Q6HR PRN #15 tablet 07/14/17 Unknown Rx [Percocet 10/325 mg] Cephalexin [Keflex] 500 mg PO Q6HR #20 capsule 08/17/17 Unknown Rx Cyclobenzaprine HCl [Flexeril 5 MG 5 mg PO Q8HR PRN #10 tab 08/17/17 Unknown Rx TAB] ED Review of Systems ROS: Stated complaint: C/O LUPUS CRISIS/HS FLARE Other details as noted in HPI Constitutional: denies: fever ENT: denies: throat or neck pain Respiratory: denies: cough, shortness of breath Cardiovascular: denies: chest pain Endocrine: denies unexplained weight loss or gain Gastrointestinal: denies: abdominal pain, nausea Genitourinary: denies: dysuria Musculoskeletal: reports leg pain denies: leg swelling Skin: denies: rash Neurological: denies: headache Hematological/Lymphatic: denies: easy bleeding or easy bruising Psych: denies sadness or hopelessness Physical Exam - Physical Exam Vital Signs: Vital Signs 08/17/17 08/17/17 17:56 23:42 Temperature 97.7 F 98 F Pulse Rate 112 H 76 Respiratory 18 16 Rate Blood Pressure 138/69 Blood Pressure 129/72 [Left] O2 Sat by Pulse 100 99 Oximetry Physical Exam: General: well-nourished, well-developed, no acute distress Head: Normocephalic, atraumatic Eyes: normal sclera ENT: Mucous membranes are pale and dry Neck: No neck stiffness, no cervical adenopathy Respiratory: Breath sounds equal bilaterally, no wheezing, rales, or rhonchi Cardio: S1 and S2 present, no murmurs, rubs, gallops, capillary refill is delayed Abdomen: Normoactive bowel sounds, soft abdomen, no rigidity, no guarding or rebound tenderness Chest WALL/Back: No tenderness to palpation of the chest wall, no CVA tenderness with percussion Musc: Small 2-3 cm area of mild erythema present to the left posterior medial thigh, no fluctuance, crepitus, or appreciable pocket of drainable fluid Skin: No rash Neuro: no facial drooping, normal speech Psych: Normal affect ED Course Vital Signs 08/17/17 08/17/17 17:56 23:42 Temperature 97.7 F 98 F Pulse Rate 112 H 76 Respiratory 18 16 Rate Blood Pressure 138/69 Blood Pressure 129/72 [Left] O2 Sat by Pulse 100 99 Oximetry ED Medical Decision Making - Medical Decision Making The patient was seen and examined by myself. The patient is placed on a billet assembler and continuous pulse ox. On initial evaluation, the patient was found to be in no distress. Evaluation orders were placed. The patient is given pain medicine antibiotic for treatment of her cellulitis. Exam findings are negative for abscess. As the patient's found him on initial exam to have completely normal vital signs including normal heart rate, and only complaining of left extremity pain, labs are not indicated at this time. Critical care attestation.: If time is entered above; I have spent that time in minutes in the direct care of this critically ill patient, excluding procedure time. ED Disposition Clinical Impression: Cellulitis of groin, left Disposition: -01 TO HOME OR SELFCARE Is pt being admited?: No Does the pt Need Aspirin: No Condition: Stable Instructions: Cellulitis (ED), Musculoskeletal Pain (ED) Prescriptions: Cephalexin [Keflex] 500 mg PO Q6HR #20 capsule Cyclobenzaprine HCl [Flexeril 5 MG TAB] 5 mg PO Q8HR PRN #10 tab PRN Reason: Pain Referrals: PRIMARY CARE, [Primary Care Provider] - 3-5 Days Time of Disposition: 23:45
== END 2017-08-18 00:28 | disposition home or self-care (01) ==
LOC: ED 17:07
DX: L03.314 Cellulitis of groin (principal); I10 Essential (primary) hypertension; I25.2 Old myocardial infarction; E11.9 Type 2 diabetes mellitus without complications; F31.9 Bipolar disorder, unspecified; F17.200 Nicotine dependence, unspecified, uncomplicated; F12.10 Cannabis abuse, uncomplicated; Z79.4 Long term (current) use of insulin; Z88.6 Allergy status to analgesic agent; Z88.1 Allergy status to other antibiotic agents; Z91.012 Allergy to eggs
CPT/HCPCS: 96360; 96372; 99283; J2270; Q0162

== ENCOUNTER 2017-08-31 15:11 | Emergency (ER) | payer MEDICARE ==
[2017-08-31] MEDS ORDERED: TORADOL IM ONE (20:24)
--- NOTE | 2017-08-31 20:28 | Emergency Department Report ---
ED General Adult HPI - General Chief complaint: Pain General Stated complaint: JOINT PAINS Source: patient Mode of arrival: Ambulatory Limitations: No Limitations - History of Present Illness Initial comments: 37-year-old -[place] Citizen female comes in complaining of rotation joint pain ". Patient reports that she has a history of lupus and feels that is flaring up within the last 2 days. Patient reports that she's taken her Max on her Percocet. Patient was recently seen here on 08/17/2017. She reports she is followed by [facility]. She has no fever. -: days(s) (2) Severity scale (0 -10): 4 Quality: aching Consistency: intermittent Improves with: medication Worsens with: none Associated Symptoms: denies other symptoms - Related Data Home Medications Medication Instructions Recorded Confirmed Last Taken Pregabalin [Lyrica] 300 mg PO BID 09/22/16 07/10/17 Unknown Trazodone HCl 150 mg PO QHS 09/22/16 07/10/17 Unknown Ziprasidone HCl [Geodon] 80 mg PO BID 09/22/16 07/10/17 07/09/17 Zolpidem [Ambien] 10 mg PO QHS 06/15/17 07/10/17 07/09/17 Previous Rx's Medication Instructions Recorded Last Taken Type Insulin Glargine [Lantus VIAL] 25 unit SUB-Q QHS 30 Days units 09/24/16 Unknown Rx Nicotine [Habitrol] 21 mg TD QDAY #30 patch 09/24/16 Unknown Rx Insulin Regular, Human [HumuLIN R] 100 unit SQ AC #1 units 04/02/17 07/09/17 Rx Aspirin [Aspirin BABY CHEW TAB] 81 mg PO QDAY #30 tab.chew 06/12/17 Unknown Rx AtorvaSTATin [Lipitor] 40 mg PO QHS #30 tablet 06/12/17 Unknown Rx Clopidogrel [Plavix] 75 mg PO QDAY #30 tablet 06/12/17 Unknown Rx Pantoprazole [Protonix TAB] 40 mg PO QDAY #30 tablet 06/12/17 07/09/17 Rx DULoxetine [Cymbalta] 90 mg PO DAILY capsule 06/16/17 Unknown Rx Cephalexin [Keflex] 500 mg PO Q6HR #28 capsule 07/13/17 Unknown Rx Sulfamethoxazole/Trimethoprim 1 each PO BID #14 tablet 07/13/17 Unknown Rx [Bactrim DS TAB] Oxycodone HCl/Acetaminophen 1 each PO Q6HR PRN #15 tablet 07/14/17 Unknown Rx [Percocet 10/325 mg] Cephalexin [Keflex] 500 mg PO Q6HR #20 capsule 08/17/17 Unknown Rx Cyclobenzaprine HCl [Flexeril 5 MG 5 mg PO Q8HR PRN #10 tab 08/17/17 Unknown Rx TAB] Ibuprofen [Motrin 800 MG tab] 800 mg PO Q8HR PRN #30 tablet 08/31/17 Unknown Rx Allergies Allergy/AdvReac Type Severity Reaction Status Date / Time egg Allergy Hives Verified 08/17/17 17:56 tramadol HCl [From Ultram] Allergy Hives Verified 08/17/17 17:56 vancomycin Allergy Hives Verified 08/17/17 17:56 ED Review of Systems ROS: Stated complaint: JOINT PAINS Other details as noted in HPI Comment: All other systems reviewed and negative Constitutional: no symptoms reported. 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 for abscess - Social History Smoking Status: Current Every Day Smoker Substance Use Type: None - Medications Home Medications: Home Medications Medication Instructions Recorded Confirmed Last Taken Type Pregabalin [Lyrica] 300 mg PO BID 09/22/16 07/10/17 Unknown History Trazodone HCl 150 mg PO QHS 09/22/16 07/10/17 Unknown History Ziprasidone HCl [Geodon] 80 mg PO BID 09/22/16 07/10/17 07/09/17 History Insulin Glargine [Lantus VIAL] 25 unit SUB-Q QHS 30 Days units 09/24/16 Unknown Rx Nicotine [Habitrol] 21 mg TD QDAY #30 patch 09/24/16 07/10/17 Unknown Rx Insulin Regular, Human [HumuLIN R] 100 unit SQ AC #1 units 04/02/17 07/10/1710/19 Rx Aspirin [Aspirin BABY CHEW TAB] 81 mg PO QDAY #30 tab.chew 06/12/17 06/15/17 Unknown Rx AtorvaSTATin [Lipitor] 40 mg PO QHS #30 tablet 06/12/17 06/15/17 Unknown Rx Clopidogrel [Plavix] 75 mg PO QDAY #30 tablet 06/12/17 06/15/17 Unknown Rx Pantoprazole [Protonix TAB] 40 mg PO QDAY #30 tablet 06/12/17 07/10/17 07/09/17 Rx Zolpidem [Ambien] 10 mg PO QHS 06/15/17 07/10/17 07/09/17 History DULoxetine [Cymbalta] 90 mg PO DAILY capsule 06/16/17 Unknown Rx Cephalexin [Keflex] 500 mg PO Q6HR #28 capsule 07/13/17 Unknown Rx Sulfamethoxazole/Trimethoprim 1 each PO BID #14 tablet 07/13/17 Unknown Rx [Bactrim DS TAB] Oxycodone HCl/Acetaminophen 1 each PO Q6HR PRN #15 tablet 07/14/17 Unknown Rx [Percocet 10/325 mg] Cephalexin [Keflex] 500 mg PO Q6HR #20 capsule 08/17/17 Unknown Rx Cyclobenzaprine HCl [Flexeril 5 MG 5 mg PO Q8HR PRN #10 tab 08/17/17 Unknown Rx TAB] Ibuprofen [Motrin 800 MG tab] 800 mg PO Q8HR PRN #30 tablet 08/31/17 Unknown Rx ED Physical Exam - General Limitations: No Limitations General appearance: alert, in no apparent distress, other (patient smells positive for weed when asked she states" you know the answer") - Head Head exam: Present: atraumatic, normocephalic - Eye Eye exam: Present: nystagmus (pinpoint pupils), other - ENT ENT exam: Present: mucous membranes moist - Neck Neck exam: Present: full ROM - Respiratory Respiratory exam: Present: normal lung sounds bilaterally. Absent: respiratory distress - Cardiovascular Cardiovascular Exam: Present: regular rate, normal rhythm. Absent: systolic murmur, diastolic murmur, rubs, gallop - GI/Abdominal GI/Abdominal exam: Present: soft, normal bowel sounds - Extremities Exam Extremities exam: Present: normal inspection - Back Exam Back exam: Present: normal inspection - Neurological Exam Neurological exam: Present: alert, altered, oriented X3, normal gait - Psychiatric Psychiatric exam: Present: normal affect, normal mood. Absent: suicidal ideation - Skin Skin exam: Present: warm, dry, intact, normal color. Absent: rash ED Course Vital Signs 08/31/17 15:25 Temperature 98 F Pulse Rate 88 Respiratory 18 Rate Blood Pressure 138/93 O2 Sat by Pulse 98 Oximetry ED Medical Decision Making - Medical Decision Making Patient has been evaluated by this provider fast track. Discussed the patient I give her Toradol injection and she needs to follow up with her lupus provider at [facility]. Critical care attestation.: If time is entered above; I have spent that time in minutes in the direct care of this critically ill patient, excluding procedure time. ED Disposition Clinical Impression: Joint pain Qualifiers: Joint pain location: unspecified Qualified Code(s): M25.50 - Pain in unspecified joint Disposition: DC-01 TO HOME OR SELFCARE Is pt being admited?: No Does the pt Need Aspirin: No Condition: Stable Instructions: Arthralgia (ED) Additional Instructions: Please take ibuprofen as prescribed. Please follow-up with [facility] for management of your pain from lupus. Prescriptions: Ibuprofen [Motrin 800 MG tab] 800 mg PO Q8HR PRN #30 tablet PRN Reason: Pain Referrals: PRIMARY CARE, [Primary Care Provider] - 3-5 Days [facility] [[facility] Group] - 3-5 Days
[2017-08-31 20:58] VITALS: BP 113/74
== END 2017-08-31 20:55 | disposition home or self-care (01) ==
LOC: ED 15:11
DX: M25.50 Pain in unspecified joint (principal); I10 Essential (primary) hypertension; E11.9 Type 2 diabetes mellitus without complications; F17.200 Nicotine dependence, unspecified, uncomplicated; Z79.4 Long term (current) use of insulin; I25.2 Old myocardial infarction; Z88.6 Allergy status to analgesic agent; Z88.1 Allergy status to other antibiotic agents; Z91.012 Allergy to eggs; Z79.82 Long term (current) use of aspirin
CPT/HCPCS: 96372; 99283; J1885

== ENCOUNTER 2017-09-05 19:39 | Emergency (ER) | payer MEDICARE ==
[2017-09-05 20:14] VITALS: BP 115/78
[2017-09-05 22:01] LABS: Bilirubin,Urine NEG (Negative); Blood,Urine LG (Negative); Color,Urine Yellow (Yellow); Mucus,Urine FEW /HPF; Protein,Urine <15 mg/dL mg/dL (Negative); Urobilinogen,Urine < 2.0 mg/dL (<2.0)
[2017-09-05 23:25] LABS: Hematocrit 34.4 % (30.3-42.9); Mean Corpuscular HGB Conc 32 % (30-34); Mean Corpuscular Volume 74 fl (79-97); Platelet Count 301 K/mm3 (140-440); Red Blood Count 4.66 M/mm3 (3.65-5.03); Red Cell Distribution Width 16.7 % (13.2-15.2)
[2017-09-05 23:28] LABS: Mean Corpuscular Hemoglobin 24 pg (28-32)
[2017-09-06 00:46] LABS: BUN/Creatinine Ratio 10; Blood Urea Nitrogen 7 mg/dL (7-17); Hemolysis Index 12
== END 2017-09-05 22:19 | disposition left against medical advice (07) ==
LOC: ED 19:39
DX: I10 Essential (primary) hypertension (principal); Z53.21 Procedure and treatment not carried out due to patient leaving prior to being seen by health care provider
CPT/HCPCS: 36415; 80048; 81001; 82805; 82962; 85027

== ENCOUNTER 2017-10-07 21:48 | Emergency (ER) | payer MEDICARE ==
[2017-10-07 22:38] VITALS: BP 133/85
[2017-10-07 22:53] LABS: Bilirubin,Urine NEG (Negative); Blood,Urine NEG (Negative); Color,Urine Straw (Yellow); Mucus,Urine FEW /HPF; Protein,Urine <15 mg/dL mg/dL (Negative); Urobilinogen,Urine < 2.0 mg/dL (<2.0)
[2017-10-07 23:03] LABS: HCG Qualitative,Urine Negative (Negative)
[2017-10-07 23:31] LABS: Basophils % (Auto) 0.2 % (0.0-1.8); Eosinophils # (Auto) 0.2 K/mm3 (0.0-0.4); Eosinophils % (Auto) 1.5 % (0.0-4.3); Hemoglobin 9.9 gm/dl (10.1-14.3); Lymphocytes # (Auto) 2.8 K/mm3 (1.2-5.4); Lymphocytes % (Auto) 28.5 % (13.4-35.0); Mean Corpuscular HGB Conc 32 % (30-34); Mean Corpuscular Volume 71 fl (79-97); Monocytes # (Auto) 0.4 K/mm3 (0.0-0.8); Monocytes % (Auto) 4.5 % (0.0-7.3); Platelet Count 323 K/mm3 (140-440); Red Blood Count 4.33 M/mm3 (3.65-5.03); Red Cell Distribution Width 16.8 % (13.2-15.2)
[2017-10-07 23:36] LABS: Mean Corpuscular Hemoglobin 23 pg (28-32)
== END 2017-10-07 22:32 | disposition left against medical advice (07) ==
LOC: ED 21:48
DX: R11.2 Nausea with vomiting, unspecified (principal); R06.00 Dyspnea, unspecified; Z53.21 Procedure and treatment not carried out due to patient leaving prior to being seen by health care provider
CPT/HCPCS: 36415; 81001; 81025; 82962; 85025

== ENCOUNTER 2017-10-08 11:28 | Emergency (ER) | payer MEDICARE ==
[2017-10-08] MEDS ORDERED: NACL 0.9% 1000 ML 1,000 ML IV ONE (12:05)
[2017-10-08] MEDS ORDERED: ZOFRAN IV ONE (12:06)
[2017-10-08] MEDS ORDERED: TORADOL IV ONE (12:06)
--- NOTE | 2017-10-08 12:09 | Emergency Department Report ---
ED General Adult HPI - General Chief complaint: Weakness Stated complaint: GENERAL WEAKNESS Time Seen by Provider: 10/08/17 11:58 Source: patient, EMS Mode of arrival: Ambulatory Limitations: No Limitations - History of Present Illness Initial comments: Patient is 37 years old female with history of diabetes and chronic suppurative hidradenitis. Patient is following up with infectious disease in [place]. She presented today complaining of generalized weakness, nausea and vomiting. Patient stated that her blood sugars being high. She denied any chest pain, abdominal pain or fever. - Related Data Home Medications Medication Instructions Recorded Confirmed Last Taken Detemir (Nf) [Levemir (Nf)] 40 units SUB-Q HS 10/08/17 10/08/17 10/07/17 Insulin Regular, Human [HumuLIN R] 15 unit SQ AC 10/08/17 10/08/17 10/08/17 Lisinopril 20 mg PO DAILY 10/08/17 10/08/17 10/08/17 Plaquenil 1 tab PO DAILY 10/08/17 10/08/17 10/08/17 predniSONE [Deltasone] 20 mg PO QDAY 10/08/17 10/08/17 10/08/17 Previous Rx's Medication Instructions Recorded Last Taken Type Aspirin [Aspirin BABY CHEW TAB] 81 mg PO QDAY #30 tab.chew 06/12/17 10/08/17 Rx AtorvaSTATin [Lipitor] 40 mg PO QHS #30 tablet 06/12/17 10/08/17 Rx Clopidogrel [Plavix] 75 mg PO QDAY #30 tablet 06/12/17 10/08/17 Rx Oxycodone HCl/Acetaminophen 1 each PO Q6HR PRN #15 tablet 07/14/17 10/07/17 Rx [Percocet 10/325 mg] Allergies Allergy/AdvReac Type Severity Reaction Status Date / Time egg Allergy Hives Verified 10/07/17 22:30 tramadol HCl [From Ultram] Allergy Hives Verified 10/07/17 22:30 vancomycin Allergy Hives Verified 10/07/17 22:30 ED Review of Systems ROS: Stated complaint: GENERAL WEAKNESS Other details as noted in HPI Comment: All other systems reviewed and negative Constitutional: denies: chills, fever Cardiovascular: denies: chest pain, palpitations Gastrointestinal: nausea, vomiting. 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 for abscess - Social History Smoking Status: Current Every Day Smoker Substance Use Type: Alcohol, Prescribed, Other - Medications Home Medications: Home Medications Medication Instructions Recorded Confirmed Last Taken Type Aspirin [Aspirin BABY CHEW TAB] 81 mg PO QDAY #30 tab.chew 06/12/17 10/08/1710/19 Rx AtorvaSTATin [Lipitor] 40 mg PO QHS #30 tablet 06/12/17 10/08/17 10/08/17 Rx Clopidogrel [Plavix] 75 mg PO QDAY #30 tablet 06/12/17 10/08/17 10/08/17 Rx Oxycodone HCl/Acetaminophen 1 each PO Q6HR PRN #15 tablet 07/14/17 10/08/1709/19 Rx [Percocet 10/325 mg] Detemir (Nf) [Levemir (Nf)] 40 units SUB-Q HS 10/08/17 10/08/17 10/07/17 History Insulin Regular, Human [HumuLIN R] 15 unit SQ AC 10/08/17 10/08/17 10/08/17 History Lisinopril 20 mg PO DAILY 10/08/17 10/08/17 10/08/17 History Plaquenil 1 tab PO DAILY 10/08/17 10/08/17 10/08/17 History predniSONE [Deltasone] 20 mg PO QDAY 10/08/17 10/08/17 10/08/17 History ED Physical Exam - General Limitations: No Limitations General appearance: alert, in no apparent distress - Head Head exam: Present: atraumatic, normocephalic, normal inspection - Eye Eye exam: Present: normal appearance - ENT ENT exam: Present: normal exam, normal orophraynx, mucous membranes moist - Neck Neck exam: Present: normal inspection, full ROM. Absent: tenderness, meningismus, lymphadenopathy, thyromegaly - Respiratory Respiratory exam: Present: normal lung sounds bilaterally - Cardiovascular Cardiovascular Exam: Present: regular rate, normal rhythm, normal heart sounds - GI/Abdominal GI/Abdominal exam: Present: soft, normal bowel sounds. Absent: distended, tenderness, guarding, rebound, rigid, organomegaly, mass, bruit, pulsatile mass , hernia - Extremities Exam Extremities exam: Present: normal inspection, full ROM, normal capillary refill - Back Exam Back exam: Present: normal inspection, full ROM. Absent: tenderness, CVA tenderness (R), CVA tenderness (L), muscle spasm, paraspinal tenderness, vertebral tenderness, rash noted - Neurological Exam Neurological exam: Present: alert, oriented X3, CN II-XII intact, normal gait - Skin Skin exam: Present: warm, intact, normal color ED Course Vital Signs 10/08/17 10/08/17 10/08/17 11:34 11:43 11:45 Temperature 98 F Pulse Rate 75 62 Respiratory 16 18 Rate Blood Pressure 112/67 121/71 O2 Sat by Pulse 99 100 100 Oximetry 10/08/17 10/08/17 10/08/17 12:01 12:15 12:33 Temperature Pulse Rate 71 73 62 Respiratory 12 13 14 Rate Blood Pressure 109/43 109/43 127/68 O2 Sat by Pulse 100 100 Oximetry 10/08/17 10/08/17 10/08/17 12:45 12:50 12:51 Temperature Pulse Rate 61 68 Respiratory 13 18 Rate Blood Pressure 101/76 O2 Sat by Pulse Oximetry 10/08/17 10/08/17 10/08/17 13:01 13:15 13:20 Temperature Pulse Rate 63 50 L Respiratory 20 19 20 Rate Blood Pressure 140/60 109/43 O2 Sat by Pulse Oximetry 07/10/1910/08/17 10/08/17 13:31 13:45 14:01 Temperature Pulse Rate 55 L 52 L 62 Respiratory 18 12 11 L Rate Blood Pressure 125/80 125/80 152/67 O2 Sat by Pulse 97 90 Oximetry 10/08/17 10/08/17 10/08/17 14:15 14:31 14:32 Temperature Pulse Rate 60 77 Respiratory 14 22 18 Rate Blood Pressure 141/78 125/80 O2 Sat by Pulse 95 99 Oximetry 10/08/17 10/08/17 14:45 14:46 Temperature Pulse Rate 67 Respiratory 11 L 18 Rate Blood Pressure 138/67 O2 Sat by Pulse 100 Oximetry ED Medical Decision Making - Lab Data Result diagrams: 10/08/17 12:29 10/08/17 12:29 - Medical Decision Making I want to talk to the patient about discharge and patient stated that she is being having issue with her depression and she is thinking about killing herself minimally by overdosing. Patient stated that she had history of suicidal attempt before with drug overdose. Patient also stated that she been hearing voices. Patient is August 11 and moved to the psychiatric area of the ER. Critical care attestation.: If time is entered above; I have spent that time in minutes in the direct care of this critically ill patient, excluding procedure time. ED Disposition Clinical Impression: Hyperglycemia, Suicidal ideation, Auditory hallucinations Disposition: DC/TX-65 PSY HOSP/PSY UNIT Is pt being admited?: No Condition: Stable Referrals: PRIMARY CARE, [Primary Care Provider] - 3-5 Days
[2017-10-08 12:41] LABS: Basophils % (Auto) 0.6 % (0.0-1.8); Eosinophils # (Auto) 0.1 K/mm3 (0.0-0.4); Eosinophils % (Auto) 1.4 % (0.0-4.3); Hematocrit 31.2 % (30.3-42.9); Hemoglobin 9.8 gm/dl (10.1-14.3); Lymphocytes % (Auto) 23.8 % (13.4-35.0); Mean Corpuscular HGB Conc 32 % (30-34); Mean Corpuscular Volume 72 fl (79-97); Monocytes # (Auto) 0.4 K/mm3 (0.0-0.8); Monocytes % (Auto) 5.2 % (0.0-7.3); Platelet Count 319 K/mm3 (140-440); Red Blood Count 4.33 M/mm3 (3.65-5.03); Red Cell Distribution Width 16.7 % (13.2-15.2)
[2017-10-08 12:43] LABS: Mean Corpuscular Hemoglobin 23 pg (28-32)
[2017-10-08 13:23] LABS: Bilirubin,Urine NEG (Negative); Blood,Urine NEG (Negative); Color,Urine Straw (Yellow); Protein,Urine <15 mg/dL mg/dL (Negative); Urobilinogen,Urine < 2.0 mg/dL (<2.0); WBC,Urine < 1.0 /HPF (0.0-6.0)
[2017-10-08 13:24] LABS: BUN/Creatinine Ratio 4; Blood Urea Nitrogen 3 mg/dL (7-17); Calcium 8.6 mg/dL (8.4-10.2); Hemolysis Index 22
[2017-10-08 13:27] LABS: HCG Qualitative,Urine Negative (Negative)
[2017-10-08] MEDS ORDERED: HumuLIN R IV ONE ×3 (13:32→13:45)
[2017-10-08] MEDS ORDERED: SUBLIMAZE ONE (14:39)
[2017-10-08] MEDS ORDERED: SUBLIMAZE IV ONE (15:00)
[2017-10-08 16:02] VITALS: BP 138/72
[2017-10-08 17:40] LABS: Bilirubin,Urine NEG (Negative); Blood,Urine NEG (Negative); Color,Urine Yellow (Yellow); Mucus,Urine FEW /HPF; Protein,Urine <15 mg/dL mg/dL (Negative); RBC,Urine < 1.0 /HPF (0.0-6.0); Urobilinogen,Urine < 2.0 mg/dL (<2.0); WBC,Urine < 1.0 /HPF (0.0-6.0)
[2017-10-08 17:46] LABS: HCG Qualitative,Urine Negative (Negative)
== END 2017-10-09 00:49 ==
LOC: ED 11:28
DX: E11.65 Type 2 diabetes mellitus with hyperglycemia (principal); F31.9 Bipolar disorder, unspecified; R45.851 Suicidal ideations; R44.0 Auditory hallucinations; I10 Essential (primary) hypertension; I25.2 Old myocardial infarction; L73.2 Hidradenitis suppurativa; F17.200 Nicotine dependence, unspecified, uncomplicated; Z79.4 Long term (current) use of insulin; Z91.012 Allergy to eggs; Z88.6 Allergy status to analgesic agent; Z88.1 Allergy status to other antibiotic agents
CPT/HCPCS: 36415; 80048; 81001; 81025; 82962; 85025; 96361; 96374; 96375; 99285; J1885; J2405; J3010; J7030; J1815

== ENCOUNTER 2017-10-13 23:05 | Emergency (ER) | payer MEDICARE ==
[2017-10-14 00:30] LABS: Basophils % (Auto) 0.2 % (0.0-1.8); Eosinophils % (Auto) 0.1 % (0.0-4.3); Hematocrit 33.9 % (30.3-42.9); Hemoglobin 10.5 gm/dl (10.1-14.3); Lymphocytes # (Auto) 3.9 K/mm3 (1.2-5.4); Lymphocytes % (Auto) 23.8 % (13.4-35.0); Mean Corpuscular HGB Conc 31 % (30-34); Mean Corpuscular Volume 71 fl (79-97); Monocytes # (Auto) 0.8 K/mm3 (0.0-0.8); Monocytes % (Auto) 5.2 % (0.0-7.3); Platelet Count 416 K/mm3 (140-440); Red Blood Count 4.75 M/mm3 (3.65-5.03); Red Cell Distribution Width 16.9 % (13.2-15.2)
[2017-10-14 00:32] LABS: BUN/Creatinine Ratio 17; Blood Urea Nitrogen 12 mg/dL (7-17); Calcium 9.4 mg/dL (8.4-10.2); Hemolysis Index 0
[2017-10-14 00:37] LABS: Mean Corpuscular Hemoglobin 22 pg (28-32)
[2017-10-14] MEDS: NACL 0.9% 1000 ML 2,000 ML IV ONE (01:07)
[2017-10-14] MEDS: HumuLIN R SUB-Q ONE (01:22)
[2017-10-14] MEDS: PERCOCET 5/325 PO ONE (01:23)
--- NOTE | 2017-10-14 02:33 | Emergency Department Report ---
ED General Adult HPI - General Chief complaint: Hyperglycemia Stated complaint: HIGH BLOOD SUGAR Time Seen by Provider: 10/14/17 00:55 Source: patient Mode of arrival: Ambulatory Limitations: No Limitations - History of Present Illness Initial comments: For the past 4 hours, patient has been feeling dizzy and faint. This happened after she was eating. The patient checked her glucose and was high in the 500s. The patient gave herself insulin and came to the ER for evaluation. The patient just finished a course of steroids for her lupus. The last dose was today. She says that her sugars are normally in the 100 to 200s. She normally feels like this when her sugars are high. Severity scale (0 -10): 9 - Related Data Home Medications Medication Instructions Recorded Confirmed Last Taken Detemir (Nf) [Levemir (Nf)] 40 units SUB-Q HS 10/08/17 10/08/17 10/07/17 Insulin Regular, Human [HumuLIN R] 15 unit SQ AC 10/08/17 10/08/17 10/08/17 Lisinopril 20 mg PO DAILY 10/08/17 10/08/17 10/08/17 Plaquenil 1 tab PO DAILY 10/08/17 10/08/17 10/08/17 predniSONE [Deltasone] 20 mg PO QDAY 10/08/17 10/08/17 10/08/17 Previous Rx's Medication Instructions Recorded Last Taken Type Aspirin [Aspirin BABY CHEW TAB] 81 mg PO QDAY #30 tab.chew 06/12/17 10/08/17 Rx AtorvaSTATin [Lipitor] 40 mg PO QHS #30 tablet 06/12/17 10/08/17 Rx Clopidogrel [Plavix] 75 mg PO QDAY #30 tablet 06/12/17 10/08/17 Rx Oxycodone HCl/Acetaminophen 1 each PO Q6HR PRN #15 tablet 07/14/17 10/07/17 Rx [Percocet 10/325 mg] Allergies Allergy/AdvReac Type Severity Reaction Status Date / Time egg Allergy Hives Verified 10/13/17 23:32 tramadol HCl [From Ultram] Allergy Hives Verified 10/13/17 23:32 vancomycin Allergy Hives Verified 10/13/17 23:32 ED Review of Systems ROS: Stated complaint: HIGH BLOOD SUGAR Other details as noted in HPI Comment: All other systems reviewed and negative Neurological: weakness, other (dizziness) ED Past Medical Hx - Past Medical History Hx Hypertension: Yes Hx CVA: No Hx Heart Attack/AMI: Yes (05/22, cardiac stent x1) Hx Congestive Heart Failure: No Hx Diabetes: Yes Hx Deep Vein Thrombosis: No Hx Pulmonary Embolism: No Hx GERD: No Hx Liver Disease: No Hx Renal Disease: No Hx Sickle Cell Disease: No Hx Arthritis: No Hx Headaches / Migraines: No Hx Seizures: No Hx Kidney Stones: No 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 for abscess - Social History Smoking Status: Current Every Day Smoker Substance Use Type: Marijuana - Medications Home Medications: Home Medications Medication Instructions Recorded Confirmed Last Taken Type Aspirin [Aspirin BABY CHEW TAB] 81 mg PO QDAY #30 tab.chew 06/12/17 10/08/1710/19 Rx AtorvaSTATin [Lipitor] 40 mg PO QHS #30 tablet 06/12/17 10/08/17 10/08/17 Rx Clopidogrel [Plavix] 75 mg PO QDAY #30 tablet 06/12/17 10/08/17 10/08/17 Rx Oxycodone HCl/Acetaminophen 1 each PO Q6HR PRN #15 tablet 07/14/17 10/08/1709/19 Rx [Percocet 10/325 mg] Detemir (Nf) [Levemir (Nf)] 40 units SUB-Q HS 10/08/17 10/08/17 10/07/17 History Insulin Regular, Human [HumuLIN R] 15 unit SQ AC 10/08/17 10/08/17 10/08/17 History Lisinopril 20 mg PO DAILY 10/08/17 10/08/17 10/08/17 History Plaquenil 1 tab PO DAILY 10/08/17 10/08/17 10/08/17 History predniSONE [Deltasone] 20 mg PO QDAY 0710/08/17 10/08/17 History ED Physical Exam - General Limitations: No Limitations General appearance: alert, in no apparent distress - Head Head exam: Present: atraumatic, normocephalic - Eye Eye exam: Present: normal appearance - ENT ENT exam: Present: mucous membranes dry - Neck Neck exam: Present: normal inspection - Respiratory Respiratory exam: Present: normal lung sounds bilaterally. Absent: respiratory distress - Cardiovascular Cardiovascular Exam: Present: regular rate, normal rhythm. Absent: systolic murmur, diastolic murmur, rubs, gallop - GI/Abdominal GI/Abdominal exam: Present: soft, normal bowel sounds. Absent: tenderness - Extremities Exam Extremities exam: Present: normal inspection - Back Exam Back exam: Present: normal inspection - Neurological Exam Neurological exam: Present: alert, oriented X3 - Psychiatric Psychiatric exam: Present: normal affect, normal mood - Skin Skin exam: Present: warm, dry, intact, normal color. Absent: rash ED Course Vital Signs 10/13/17 10/14/17 23:32 02:03 Temperature 97.8 F Pulse Rate 104 H Respiratory 18 14 Rate Blood Pressure 119/79 O2 Sat by Pulse 95 98 Oximetry ED Medical Decision Making - Lab Data Result diagrams: 10/14/17 00:03 10/14/17 00:03 - EKG Data -: EKG Interpreted by Me EKG shows normal: sinus rhythm, axis, intervals, ST-T waves Rate: normal - EKG Data Interpretation: nonspecific ST-T wave cristobal - Medical Decision Making 37-year-old female with past medical history of ACS, DM, lupus on plaque until such prednisone presents to the ER with 4 hours of dizziness/weakness. Vital signs significant for tachycardia with a heart rate of 105. Patient appears to be clinically dry on exam. She was given 2 L of IV fluids for this. Glucose is elevated at approximately 400. Patient is given 5 units of subcutaneous insulin. Lab work is significant for leukocytosis of 16. Patient did just finished steroids today. When I initially walked in the room, patient was lying in bed, comfortably, playing on her phone. Low suspicion for emergent pathology. On reevaluation, agents glucose has improved and she feels symptomatically better. Patient is cleared for discharge. - Differential Diagnosis hyperglycemia, sepsis, electrolyte abnormalities, dehydration, acs Critical care attestation.: If time is entered above; I have spent that time in minutes in the direct care of this critically ill patient, excluding procedure time. ED Disposition Clinical Impression: Hyperglycemia Disposition: DC-01 TO HOME OR SELFCARE Is pt being admited?: No Does the pt Need Aspirin: No Condition: Stable Instructions: Diabetic Hyperglycemia (ED) Additional Instructions: Please work on increasing your water intake. Follow-up with your family doctor in 3-5 days for reevaluation. Referrals: RAMÓN WILSON MD [Primary Care Provider] - 3-5 Days
[2017-10-14 03:59] VITALS: BP 126/64
== END 2017-10-14 04:28 | disposition home or self-care (01) ==
LOC: ED 23:05
DX: E11.65 Type 2 diabetes mellitus with hyperglycemia (principal); I10 Essential (primary) hypertension; I25.2 Old myocardial infarction; F17.200 Nicotine dependence, unspecified, uncomplicated; F12.10 Cannabis abuse, uncomplicated
CPT/HCPCS: 36415; 80048; 82805; 82962; 85025; 93005; 93010; 96360; 96372; 99284; J7030; J1815

== ENCOUNTER 2017-10-15 02:52 | Emergency (ER) | payer MEDICARE | END 2017-10-15 02:53 | disposition left against medical advice (07) | LOC: ED 02:52 | DX: L02.91 Cutaneous abscess, unspecified (principal); Z88.1 Allergy status to other antibiotic agents; Z91.018 Allergy to other foods; Z53.21 Procedure and treatment not carried out due to patient leaving prior to being seen by health care provider ==

== ENCOUNTER 2017-10-16 07:03 | Emergency (ER) | payer MEDICARE ==
[2017-10-16 08:19] LABS: Hematocrit 34.1 % (30.3-42.9); Hemoglobin 10.8 gm/dl (10.1-14.3); Mean Corpuscular HGB Conc 32 % (30-34); Mean Corpuscular Volume 72 fl (79-97); Platelet Count 365 K/mm3 (140-440); Red Blood Count 4.75 M/mm3 (3.65-5.03); Red Cell Distribution Width 17.4 % (13.2-15.2)
[2017-10-16 08:27] LABS: Mean Corpuscular Hemoglobin 23 pg (28-32)
[2017-10-16 08:30] LABS: BUN/Creatinine Ratio 10; Blood Urea Nitrogen 6 mg/dL (7-17); Calcium 9.4 mg/dL (8.4-10.2); Hemolysis Index 8
[2017-10-16] MEDS ORDERED: HumuLIN R SUB-Q ONE (08:40)
[2017-10-16] MEDS ORDERED: NACL 0.9% 1000 ML 1,000 ML IV ONE (08:41)
[2017-10-16] MEDS ORDERED: CLEOCIN 600 MG/50 mL 600 MG/50 ML BAG IV ONE (08:42)
--- NOTE | 2017-10-16 08:52 | Emergency Department Report ---
Abscess Boil HPI - HPI Chief Complaint: Skin/Abscess/Foreign Body Stated Complaint: FEVER,RECTAL ABSCESS Time Seen by Provider: 10/16/17 08:30 Duration: 4 Days Location: Perianal Severity: Mild History: Yes Pain, No Fever, No Purulent Drainage, No Numbness, No Foreign Body , No Previous History, No Insect Bite HPI: This is a 37-year-old female nontoxic, well nourished in appearance, no acute signs of distress presents to the ED with c/o of acute or chronic intermittent and abscess formation in the perianal area. They state that she has history of hidradenitits and develops this. Patient denies any pus or drainage. Patient denies any nausea, vomiting, chest pain, shortness of breathe , fever, chills, headache, stiff neck. Patient stated allergies to tramadol and vancomycin. PMH includes diabetes, OR, bipolar, lupus. Patient stated that she missed her dose of insulin regular 15 units subcutaneous this morning. Home Medications: Home Medications Medication Instructions Recorded Confirmed Last Taken Lisinopril 20 mg PO DAILY 10/08/17 10/08/17 10/08/17 Plaquenil 1 tab PO DAILY 10/08/17 10/08/17 10/08/17 predniSONE [Deltasone] 20 mg PO QDAY 10/08/17 10/08/17 10/08/17 Previous Rx's Medication Instructions Recorded Last Taken Type Aspirin [Aspirin BABY CHEW TAB] 81 mg PO QDAY #30 tab.chew 06/12/17 10/08/17 Rx AtorvaSTATin [Lipitor] 40 mg PO QHS #30 tablet 06/12/17 10/08/17 Rx Clopidogrel [Plavix] 75 mg PO QDAY #30 tablet 06/12/17 10/08/17 Rx Oxycodone HCl/Acetaminophen 1 each PO Q6HR PRN #15 tablet 07/14/17 10/07/17 Rx [Percocet 10/325 mg] Detemir (Nf) [Levemir (Nf)] 40 units SUB-Q HS #600 units 10/14/17 Unknown Rx Insulin Regular, Human [HumuLIN R] 15 unit SQ AC #600 units 10/14/17 Unknown Rx Clindamycin [Clindamycin CAP] 300 mg PO Q6H #28 capsule 10/16/17 Unknown Rx Ibuprofen [Motrin] 600 mg PO Q8H PRN #30 tablet 10/16/17 Unknown Rx Allergies/Adverse Reactions: Allergies Allergy/AdvReac Type Severity Reaction Status Date / Time egg Allergy Hives Verified 10/13/17 23:32 tramadol HCl [From Ultram] Allergy Hives Verified 10/13/17 23:32 vancomycin Allergy Hives Verified 10/13/17 23:32 ED Review of Systems ROS: Stated complaint: FEVER,RECTAL ABSCESS Other details as noted in HPI Constitutional: denies: chills, fever Eyes: denies: eye pain, eye discharge, vision change ENT: denies: ear pain, throat pain Respiratory: denies: cough, shortness of breath, wheezing Cardiovascular: denies: chest pain, palpitations Endocrine: no symptoms reported Gastrointestinal: denies: abdominal pain, nausea, diarrhea Genitourinary: denies: urgency, dysuria, discharge Musculoskeletal: denies: back pain, joint swelling, arthralgia Skin: denies: rash, lesions Neurological: denies: headache, weakness, paresthesias Psychiatric: denies: anxiety, depression Hematological/Lymphatic: denies: easy bleeding, easy bruising ED Past Medical Hx - Past Medical History Hx Hypertension: Yes Hx CVA: No Hx Heart Attack/AMI: Yes (05/22, cardiac stent x1) Hx Congestive Heart Failure: No Hx Diabetes: Yes Hx Deep Vein Thrombosis: No Hx Pulmonary Embolism: No Hx GERD: No Hx Liver Disease: No Hx Renal Disease: No Hx Sickle Cell Disease: No Hx Arthritis: No Hx Headaches / Migraines: No Hx Seizures: No Hx Kidney Stones: No 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 for abscess - Social History Smoking Status: Current Every Day Smoker - Medications Home Medications: Home Medications Medication Instructions Recorded Confirmed Last Taken Type Aspirin [Aspirin BABY CHEW TAB] 81 mg PO QDAY #30 tab.chew 06/12/17 10/08/1710/19 Rx AtorvaSTATin [Lipitor] 40 mg PO QHS #30 tablet 06/12/17 10/08/17 10/08/17 Rx Clopidogrel [Plavix] 75 mg PO QDAY #30 tablet 06/12/17 10/08/17 10/08/17 Rx Oxycodone HCl/Acetaminophen 1 each PO Q6HR PRN #15 tablet 07/14/17 10/08/1709/19 Rx [Percocet 10/325 mg] Lisinopril 20 mg PO DAILY 10/08/17 10/08/17 10/08/17 History Plaquenil 1 tab PO DAILY 10/08/17 10/08/17 10/08/17 History predniSONE [Deltasone] 20 mg PO QDAY 10/08/17 10/08/17 10/08/17 History Detemir (Nf) [Levemir (Nf)] 40 units SUB-Q HS #600 units 10/14/17 Unknown Rx Insulin Regular, Human [HumuLIN R] 15 unit SQ AC #600 units 10/14/17 Unknown Rx Clindamycin [Clindamycin CAP] 300 mg PO Q6H #28 capsule 10/16/17 Unknown Rx Ibuprofen [Motrin] 600 mg PO Q8H PRN #30 tablet 10/16/17 Unknown Rx ED Abscess Boil Physical Exam - Exam General: Vital signs noted. No distress. Alert and acting appropriately. Front/Back of Body, Lg (Color): 1 - pain here Exam: Yes Normal Neurologic Exam, Yes Normal Circulation, No Tenderness, No Fluctuance, No Surrounding Cellulites/Erythema, No Lymphangitis, No Crepitation , No Heart Murmur ED Course Vital Signs 10/16/17 07:35 Temperature 97.7 F Pulse Rate 105 H Respiratory 18 Rate Blood Pressure 139/103 O2 Sat by Pulse 100 Oximetry - Reevaluation(s) Reevaluation #1: 10/16/17 08:52 Patient is speaking in full sentences with no signs of distress noted. - Consultations Consultation #1: 10/16/17 11:12 Patient has been consulted with Roger Richmond about patient history, physical exam, and labs/CT abdomen and examined and screened patient and agrees to ED plan of care and discharge plan of care. Critical care attestation.: If time is entered above; I have spent that time in minutes in the direct care of this critically ill patient, excluding procedure time. ED Medical Decision Making - Lab Data Result diagrams: 10/16/17 07:48 10/16/17 07:48 - Medical Decision Making This is a 37-year-old female that presents with multiple scar tissues. Patient is stable and was examined by me. CT obtained and dictated by the radiologist with no significant abscess formation. Patient is discharged with Clinda and Toradol in the ED. Patient was discussed with Dr. Klein and stated to discharge with antibiotics. Patient also receievd a dose of her insulin in the ED and blood sugar decreased to 209. Patient was instructed to refer to Follow- up with a primary care doctor in 3-5 days or if symptoms worsen and continue return to emergency room as soon as possible. At time of discharge, the patient does not seem toxic or ill in appearance. No acute signs of distress noted. Patient agrees to discharge treatment plan of care. No further questions noted by the patient. ED Disposition Clinical Impression: Hyperglycemia, Scar tissue Disposition: DC-01 TO HOME OR SELFCARE Is pt being admited?: No Does the pt Need Aspirin: No Condition: Stable Instructions: Abscess (ED) Additional Instructions: Follow-up with a primary care doctor in 3-5 days or if symptoms worsen and continue return to emergency room as soon as possible. Return to emergency room if swelling increases or worsening of symptoms as this may be an abscess formation that needs to be lanced. Prescriptions: Clindamycin [Clindamycin CAP] 300 mg PO Q6H #28 capsule Ibuprofen [Motrin] 600 mg PO Q8H PRN #30 tablet PRN Reason: Pain Referrals: PRIMARY CARE, [Primary Care Provider] - 3-5 Days JOHANNY LEE MD [Staff Physician] - 3-5 Days [facility] [Outside] - 3-5 Days [facility] [Outside] - 3-5 Days Forms: Work/School Release Form(ED)
[2017-10-16] MEDS: TORADOL IV ONE ×2 (09:07→10:23)
--- NOTE | 2017-10-16 11:06 | Cat Scan Report ---
FINAL REPORT EXAM: CT PELVIS W CON HISTORY: rectal pain r/o abscess TECHNIQUE: CT of the pelvis with IV contrast. Coronal and sagittal reconstructed imaging provided. PRIORS: CT abdomen pelvis July 10, 2017. FINDINGS: Partially imaged large and small bowel loops are grossly unremarkable. Cyka-ia-utmzkvog stool. No obstructive pattern. No wall thickening or inflammatory changes. Moderate stool in the rectum. Images of the bladder are unremarkable. Limited images of the uterus are unremarkable. Oval low-attenuation lesion in the left neck is a measures 2.0 cm and may represent a left ovary with ovarian cyst. No pelvic mass or adenopathy. No pelvic abscess or hematoma. Inguinal regions are unremarkable. Series 2:85-89 demonstrates soft tissue prominence in the posterior perineum anal region. Soft tissue prominence in the midline posterior soft tissues may represent inflammation with scarring or possible fistula. Soft tissue prominence covers an area of 8.7 x 5.5 mm. Subtle decreased attenuation more posteriorly measuring 2.2 x 7.6 mm may represent a small phlegmon or developing abscess. No distinct rim enhancement noted. There is some stranding which extends superiorly toward the coccyx but appears to be primarily within the subcutaneous fat. No involvement of the musculature is clearly evident. The underlying bone appears grossly unremarkable. More inferiorly on series 2:17 there is soft tissue prominence extending from the right perianal region down to the posterior medial thigh covering an area measuring 3.7 x 6.0 cm. No distinct low-attenuation fluid collection with rim enhancement identified. IMPRESSION: Soft tissue prominence around the posterior perineal region with stranding extending posteriorly into the subcutaneous soft tissues and skin of the buttocks and into the posterior medial right upper thigh. These may represent areas of inflammation and or scarring. Please correlate for fistula. Small low-attenuation area in the posterior midline stranding without rim enhancement may represent a small phlegmon or developing abscess. No distinct rim enhancing abscess is evident. October 16, 2017 at 0758 PDT: I discussed the findings over phone with LOUISA Mariscal.
[2017-10-16] MEDS ORDERED: TYLENOL PO ONE (12:48)
[2017-10-16 13:56] VITALS: BP 132/96
== END 2017-10-16 13:55 | disposition home or self-care (01) ==
LOC: ED 07:03
DX: L90.5 Scar conditions and fibrosis of skin (principal); E11.65 Type 2 diabetes mellitus with hyperglycemia; I10 Essential (primary) hypertension; I25.2 Old myocardial infarction; F17.200 Nicotine dependence, unspecified, uncomplicated; Z79.82 Long term (current) use of aspirin; Z79.4 Long term (current) use of insulin; Z95.1 Presence of aortocoronary bypass graft; Z88.6 Allergy status to analgesic agent; Z88.1 Allergy status to other antibiotic agents; Z91.012 Allergy to eggs
CPT/HCPCS: 36415; 72193; 80048; 82962; 85027; 96365; 96372; 96375; 99284; J1885; J7030; Q9967; J1815

== ENCOUNTER 2017-10-22 23:05 | Emergency (ER) | payer MEDICARE ==
[2017-10-22 23:11] VITALS: BP 147/97
[2017-10-23 00:48] LABS: Basophils % (Auto) 0.2 % (0.0-1.8); Eosinophils # (Auto) 0.1 K/mm3 (0.0-0.4); Eosinophils % (Auto) 0.7 % (0.0-4.3); Hematocrit 35.2 % (30.3-42.9); Hemoglobin 11.8 gm/dl (10.1-14.3); Lymphocytes # (Auto) 3.9 K/mm3 (1.2-5.4); Lymphocytes % (Auto) 34.2 % (13.4-35.0); Mean Corpuscular HGB Conc 34 % (30-34); Mean Corpuscular Volume 71 fl (79-97); Monocytes # (Auto) 0.6 K/mm3 (0.0-0.8); Monocytes % (Auto) 5.5 % (0.0-7.3); Platelet Count 359 K/mm3 (140-440); Red Blood Count 4.97 M/mm3 (3.65-5.03); Red Cell Distribution Width 17.5 % (13.2-15.2)
[2017-10-23 00:51] LABS: Mean Corpuscular Hemoglobin 24 pg (28-32)
[2017-10-23 00:58] LABS: Alanine Aminotransferase 15 units/L (7-56); Albumin 4.5 g/dL (3.9-5); BUN/Creatinine Ratio 13; Blood Urea Nitrogen 9 mg/dL (7-17); Calcium 9.7 mg/dL (8.4-10.2); Hemolysis Index 1
== END 2017-10-23 06:45 | disposition left against medical advice (07) ==
LOC: ED 23:05
DX: R51 Headache (principal); R42 Dizziness and giddiness; Z53.21 Procedure and treatment not carried out due to patient leaving prior to being seen by health care provider
CPT/HCPCS: 36415; 80053; 85025; 93005; 93010

== ENCOUNTER 2017-10-28 21:06 | Emergency (ER) | payer MEDICARE ==
[2017-10-28 21:33] VITALS: BP 137/88
== END 2017-10-29 00:38 | disposition left against medical advice (07) ==
LOC: ED 21:06
DX: K61.1 Rectal abscess (principal); F31.9 Bipolar disorder, unspecified; F20.9 Schizophrenia, unspecified; F17.200 Nicotine dependence, unspecified, uncomplicated; Z91.012 Allergy to eggs; Z88.1 Allergy status to other antibiotic agents; Z53.21 Procedure and treatment not carried out due to patient leaving prior to being seen by health care provider

== ENCOUNTER 2017-10-31 15:35 | Emergency (ER) | payer MEDICARE ==
[2017-10-31 17:25] LABS: BUN/Creatinine Ratio 10; Blood Urea Nitrogen 8 mg/dL (7-17); Calcium 9.2 mg/dL (8.4-10.2); Hemolysis Index 0
[2017-10-31 17:52] LABS: Hematocrit 34.4 % (30.3-42.9); Mean Corpuscular HGB Conc 32 % (30-34); Mean Corpuscular Volume 72 fl (79-97); Platelet Count 287 K/mm3 (140-440); Red Blood Count 4.79 M/mm3 (3.65-5.03); Red Cell Distribution Width 18.6 % (13.2-15.2)
[2017-10-31 17:56] LABS: Mean Corpuscular Hemoglobin 23 pg (28-32)
[2017-10-31] MEDS ORDERED: NACL 0.9% 1000 ML 1,000 ML IV ONE (22:29)
[2017-10-31] MEDS ORDERED: NORCO 5/325 PO ONE (22:31)
--- NOTE | 2017-10-31 22:36 | Emergency Department Report ---
HPI - General Chief Complaint: Skin/Abscess/Foreign Body Time Seen by Provider: 10/31/17 22:24 - HPI HPI: Room 3 The patient is a 37-year-old female presenting with a chief complaint of buttocks pain. The patient states she has a history of a buttocks abscess was initially scheduled for surgery by a plastic surgeon Dr. Jaffe 10/25/2017. The patient states when the date arrived her blood sugar was found to be elevated so the surgery had to be rescheduled. The patient states yesterday she noticed a yellowish-green drainage from the abscess. Patient states she had a "fever" between 99-100F. Patient states she has not yet contacted her plastic surgeon Dr. Jaffe about the changes. 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 for abscess - Family History Family history: no significant - Social History Smoking Status: Current Every Day Smoker (1 pack per day) Substance Use Type: Marijuana - Medications Home Medications: Home Medications Medication Instructions Recorded Confirmed Last Taken Type Aspirin [Aspirin BABY CHEW TAB] 81 mg PO QDAY #30 tab.chew 06/12/17 10/08/1710/19 Rx AtorvaSTATin [Lipitor] 40 mg PO QHS #30 tablet 06/12/17 10/08/17 10/08/17 Rx Clopidogrel [Plavix] 75 mg PO QDAY #30 tablet 06/12/17 10/08/17 10/08/17 Rx Oxycodone HCl/Acetaminophen 1 each PO Q6HR PRN #15 tablet 07/14/17 10/08/1709/19 Rx [Percocet 10/325 mg] Lisinopril 20 mg PO DAILY 10/08/17 10/08/17 10/08/17 History Plaquenil 1 tab PO DAILY 10/08/17 10/08/17 10/08/17 History predniSONE [Deltasone] 20 mg PO QDAY 10/08/17 10/08/17 10/08/17 History Detemir (Nf) [Levemir (Nf)] 40 units SUB-Q HS #600 units 10/14/17 Unknown Rx Insulin Regular, Human [HumuLIN R] 15 unit SQ AC #600 units 10/14/17 Unknown Rx Clindamycin [Clindamycin CAP] 300 mg PO Q6H #28 capsule 10/16/17 Unknown Rx Ibuprofen [Motrin] 600 mg PO Q8H PRN #30 tablet 10/16/17 Unknown Rx HYDROcodone/APAP 5-325 [[place] 1 - 2 each PO Q6HR PRN #10 tablet 10/31/17 Unknown Rx 5/325] Sulfamethoxazole/Trimethoprim 1 each PO BID #14 tablet 10/31/17 Unknown Rx [Bactrim DS TAB] ED Review of Systems ROS: Stated complaint: RECTAL ABCESS Other details as noted in HPI Constitutional: fever Eyes: denies: eye pain ENT: denies: throat pain Respiratory: no symptoms reported Cardiovascular: denies: chest pain Endocrine: no symptoms reported Gastrointestinal: denies: abdominal pain Genitourinary: denies: dysuria Musculoskeletal: denies: back pain Skin: lesions Neurological: denies: headache Physical Exam - Physical Exam Vital Signs: Vital Signs 10/31/17 16:01 Temperature 97.8 F Pulse Rate 111 H Respiratory 18 Rate Blood Pressure 145/91 O2 Sat by Pulse 100 Oximetry Physical Exam: GENERAL: The patient is well-developed well-nourished female lying on stretcher not appearing to be in acute distress. [] HEENT: Normocephalic. Atraumatic. Extraocular motions are intact. Patient has moist mucous membranes. NECK: Supple. Trachea midline CHEST/LUNGS: Clear to auscultation. There is no respiratory distress noted. HEART/CARDIOVASCULAR: Regular. There is no tachycardia. There is no gallop rub or murmur. ABDOMEN: Abdomen is soft, nontender. Patient has normal bowel sounds. There is no abdominal distention. SKIN: There is a region by the gluteal cleft that shows dried discharge on the skin. No active discharge appreciated. No overlying erythema/cellulitis. No fluctuance. There is no edema. There is no diaphoresis. NEURO: The patient is awake, alert, and oriented. The patient is cooperative. The patient has normal speech MUSCULOSKELETAL: There is no evidence of acute injury. ED Course Vital Signs 10/31/17 16:01 Temperature 97.8 F Pulse Rate 111 H Respiratory 18 Rate Blood Pressure 145/91 O2 Sat by Pulse 100 Oximetry - Consultations Consultation #1: 10/31/17 23:[address] Jaffe. Agrees with plan ED Medical Decision Making - Lab Data Result diagrams: 10/31/17 16:10 10/31/17 16:10 Critical care attestation.: If time is entered above; I have spent that time in minutes in the direct care of this critically ill patient, excluding procedure time. ED Disposition Clinical Impression: Hidradenitis, Hyperglycemia Disposition: - TO HOME OR SELFCARE Is pt being admited?: No Does the pt Need Aspirin: No Condition: Stable Additional Instructions: Return to the emergency department immediately should you develop worsening symptoms, fever, inability to tolerate food or liquid or any other concerns. Prescriptions: HYDROcodone/APAP 5-325 [[place] 5/325] 1 - 2 each PO Q6HR PRN #10 tablet PRN Reason: Pain Sulfamethoxazole/Trimethoprim [Bactrim DS TAB] 1 each PO BID #14 tablet Referrals: RAMÓN WILSON MD [Primary Care Provider] - 3-5 Days WORK,DESTINEY Smith JR, MD [Staff Physician] - 2-3 Days Time of Disposition: 00:34
[2017-11-01] MEDS ORDERED: ZOFRAN IV ONE (00:56)
[2017-11-01] MEDS ORDERED: TORADOL IV ONE (00:56)
[2017-11-01] MEDS ORDERED: DIFLUCAN PO ONE (01:07)
[2017-11-01 02:49] VITALS: BP 112/77
== END 2017-11-01 02:45 | disposition home or self-care (01) ==
LOC: ED 15:35
DX: L73.2 Hidradenitis suppurativa (principal); E11.65 Type 2 diabetes mellitus with hyperglycemia; I11.0 Hypertensive heart disease with heart failure; I50.9 Heart failure, unspecified; F31.9 Bipolar disorder, unspecified; F25.9 Schizoaffective disorder, unspecified; F17.200 Nicotine dependence, unspecified, uncomplicated; F12.10 Cannabis abuse, uncomplicated
CPT/HCPCS: 36415; 80048; 82805; 82962; 85027; 96361; 96374; 96375; 99284; J1885; J2405; J7030

== ENCOUNTER 2017-11-12 06:44 | Emergency (ER) | payer MEDICARE ==
[2017-11-12 07:56] VITALS: BP 135/92
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
== END 2017-11-12 08:45 | disposition home or self-care (01) ==
LOC: ED 06:44
DX: R10.2 Pelvic and perineal pain (principal); I10 Essential (primary) hypertension; I25.2 Old myocardial infarction; E11.9 Type 2 diabetes mellitus without complications; F17.200 Nicotine dependence, unspecified, uncomplicated; F12.10 Cannabis abuse, uncomplicated; Z95.1 Presence of aortocoronary bypass graft; Z79.82 Long term (current) use of aspirin; Z79.4 Long term (current) use of insulin; Z88.6 Allergy status to analgesic agent; Z88.1 Allergy status to other antibiotic agents; Z91.012 Allergy to eggs
CPT/HCPCS: 99282

== ENCOUNTER 2017-11-16 19:36 | Emergency (ER) | payer MEDICARE ==
[2017-11-16 21:17] LABS: Basophils # (Auto) 0.1 K/mm3 (0.0-0.1); Basophils % (Auto) 0.8 % (0.0-1.8); Eosinophils # (Auto) 0.1 K/mm3 (0.0-0.4); Eosinophils % (Auto) 0.8 % (0.0-4.3); Hematocrit 33.3 % (30.3-42.9); Hemoglobin 10.5 gm/dl (10.1-14.3); Lymphocytes # (Auto) 3.2 K/mm3 (1.2-5.4); Lymphocytes % (Auto) 28.5 % (13.4-35.0); Mean Corpuscular HGB Conc 32 % (30-34); Mean Corpuscular Hemoglobin 22 pg (28-32); Mean Corpuscular Volume 71 fl (79-97); Monocytes # (Auto) 0.5 K/mm3 (0.0-0.8); Monocytes % (Auto) 4.5 % (0.0-7.3); Platelet Count 262 K/mm3 (140-440); Red Blood Count 4.71 M/mm3 (3.65-5.03)
[2017-11-16 21:28] LABS: BUN/Creatinine Ratio 9; Blood Urea Nitrogen 7 mg/dL (7-17); Hemolysis Index 11
[2017-11-17] MEDS ORDERED: NORCO 5/325 PO ONE ×2 (00:49→03:19)
[2017-11-17 01:01] VITALS: BP 123/85
--- NOTE | 2017-11-17 01:34 | Cat Scan Report ---
FINAL REPORT EXAM: CT PELVIS WO CON HISTORY: h/o hidradenitis with known rectal-cutaneous fistu COMPARISON: CT of the pelvis from October 2017. TECHNIQUE: Contiguous axial images were obtained. Additional sagittal and coronal reformatted images were obtained. FINDINGS: Focal soft tissue thickening along the medial margin of the right gluteal cheek. Soft tissue inflammation extends anteriorly to the posterior margin of the anal canal. No definable fistula track on this noncontrast study. No rim enhancing fluid collection to suggest drainable abscess. Soft tissue thickening along the medial margin right gluteal cheek is grossly stable from prior study. Small phlegmon in this region not excluded. Some soft tissue swelling may relate to chronic scarring. Area of soft tissue thickening measures 4.7 x 1.1 centimeters in axial dimension and in craniocaudal dimension measures 2.2 centimeters. No free fluid or lymphadenopathy in the pelvic cavity. Urinary bladder, uterus, ovaries are grossly unremarkable. There are few pelvic phleboliths. No free fluid or lymphadenopathy in the pelvic cavity. Pelvic bowel loops normal in caliber. The appendix is normal in caliber. Mild sclerosis along the SI joints which may relate to sequelae of prior sacroiliitis. IMPRESSION: Persistent soft tissue thickening along the right gluteal cheek extending towards the posterior and right margin of the anal canal. This is stable appearance compared to prior study. This could reflect a phlegmon or early organizing abscess. No drainable abscess evident by noncontrast CT at this time. No significant change from prior study. Fistula not excluded on this exam.
--- NOTE | 2017-11-17 02:22 | Emergency Department Report ---
ED General Adult HPI - General Chief complaint: Hyperglycemia Stated complaint: LUPUS/HYPERGLYCEMIA Time Seen by Provider: 11/17/17 00:48 Source: patient, EMS Mode of arrival: Ambulatory Limitations: No Limitations - History of Present Illness Initial comments: Pt had surgery on her hidradenitis 3 days ago in her sacrum area. Ever since has had pain and foul smelling drainage. 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 Currently is on clinda. Pt has follow up with her surgeon in 2 days. afebrile. nauseous, but no vomiting. Also, pt is on 20 mg BID prednisone and her sugars have been in the 300-500s. She has 1 more week of prednisone. Severity scale (0 -10): 8 - Related Data Home Medications Medication Instructions Recorded Confirmed Last Taken Lisinopril 20 mg PO DAILY 10/08/17 10/08/17 10/08/17 Plaquenil 1 tab PO DAILY 10/08/17 10/08/17 10/08/17 predniSONE [Deltasone] 20 mg PO QDAY 10/08/17 10/08/17 10/08/17 Previous Rx's Medication Instructions Recorded Last Taken Type Aspirin [Aspirin BABY CHEW TAB] 81 mg PO QDAY #30 tab.chew 06/12/17 10/08/17 Rx AtorvaSTATin [Lipitor] 40 mg PO QHS #30 tablet 06/12/17 10/08/17 Rx Clopidogrel [Plavix] 75 mg PO QDAY #30 tablet 06/12/17 10/08/17 Rx Oxycodone HCl/Acetaminophen 1 each PO Q6HR PRN #15 tablet 07/14/17 10/07/17 Rx [Percocet 10/325 mg] Detemir (Nf) [Levemir (Nf)] 40 units SUB-Q HS #600 units 10/14/17 Unknown Rx Insulin Regular, Human [HumuLIN R] 15 unit SQ AC #600 units 10/14/17 Unknown Rx Clindamycin [Clindamycin CAP] 300 mg PO Q6H #28 capsule 10/16/17 Unknown Rx Ibuprofen [Motrin] 600 mg PO Q8H PRN #30 tablet 10/16/17 Unknown Rx Sulfamethoxazole/Trimethoprim 1 each PO BID #14 tablet 10/31/17 Unknown Rx [Bactrim DS TAB] Ibuprofen [Motrin 600 MG tab] 600 mg PO Q8H PRN #12 tablet 11/12/17 Unknown Rx HYDROcodone/APAP 5-325 [[place] 1 - 2 each PO Q6HR PRN #7 tablet 11/17/17 Unknown Rx 5-325 mg TAB] Allergies Allergy/AdvReac Type Severity Reaction Status Date / Time egg Allergy Hives Verified 11/12/17 07:52 tramadol HCl [From Ultram] Allergy Hives Verified 11/12/17 07:52 vancomycin Allergy Hives Verified 11/12/17 07:52 ED Review of Systems ROS: Stated complaint: LUPUS/HYPERGLYCEMIA Other details as noted in HPI ED Past Medical Hx - Past Medical History Previous Medical History?: Yes Hx Hypertension: Yes Hx CVA: No Hx Heart Attack/AMI: Yes (05/22, cardiac stent x1) Hx Congestive Heart Failure: No Hx Diabetes: Yes Hx Deep Vein Thrombosis: No Hx Pulmonary Embolism: No Hx GERD: No Hx Liver Disease: No Hx Renal Disease: No Hx Sickle Cell Disease: No Hx Arthritis: No Hx Headaches / Migraines: No Hx Seizures: No Hx Kidney Stones: No 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 for abscess - Social History Smoking Status: Current Every Day Smoker Substance Use Type: Marijuana - Medications Home Medications: Home Medications Medication Instructions Recorded Confirmed Last Taken Type Aspirin [Aspirin BABY CHEW TAB] 81 mg PO QDAY #30 tab.chew 06/12/17 10/08/1710/19 Rx AtorvaSTATin [Lipitor] 40 mg PO QHS #30 tablet 06/12/17 10/08/17 10/08/17 Rx Clopidogrel [Plavix] 75 mg PO QDAY #30 tablet 06/12/17 10/08/17 10/08/17 Rx Oxycodone HCl/Acetaminophen 1 each PO Q6HR PRN #15 tablet 07/14/17 10/08/1709/19 Rx [Percocet 10/325 mg] Lisinopril 20 mg PO DAILY 10/08/17 10/08/17 10/08/17 History Plaquenil 1 tab PO DAILY 10/08/17 10/08/17 10/08/17 History predniSONE [Deltasone] 20 mg PO QDAY 10/08/17 10/08/17 10/08/17 History Detemir (Nf) [Levemir (Nf)] 40 units SUB-Q HS #600 units 10/14/17 Unknown Rx Insulin Regular, Human [HumuLIN R] 15 unit SQ AC #600 units 10/14/17 Unknown Rx Clindamycin [Clindamycin CAP] 300 mg PO Q6H #28 capsule 10/16/17 Unknown Rx Ibuprofen [Motrin] 600 mg PO Q8H PRN #30 tablet 10/16/17 Unknown Rx Sulfamethoxazole/Trimethoprim 1 each PO BID #14 tablet 10/31/17 Unknown Rx [Bactrim DS TAB] Ibuprofen [Motrin 600 MG tab] 600 mg PO Q8H PRN #12 tablet 11/12/17 Unknown Rx HYDROcodone/APAP 5-325 [[place] 1 - 2 each PO Q6HR PRN #7 tablet 11/17/17 Unknown Rx 5-325 mg TAB] ED Physical Exam - General Limitations: No Limitations ED Course Vital Signs 11/16/17 11/17/17 11/17/17 20:34 00:40 02:27 Temperature 98.9 F 98.7 F Pulse Rate 91 H 76 Respiratory 20 18 20 Rate Blood Pressure 120/78 Blood Pressure 123/85 [Left] O2 Sat by Pulse 99 100 98 Oximetry ED Medical Decision Making - Lab Data Result diagrams: 11/16/17 20:54 11/16/17 20:54 - Medical Decision Making 37 yo female with pmhx hidradenitis, SLE that p/w rectal pain and hyperglycemia. Vital signs are stable. Patient is well-appearing. Mild sacral tenderness appreciated. Small half centimeter hole seen at the top of the gluteal cleft. No drainage appreciated. CT scan shows no acute changes from her scan at the end of October. Lab work is unremarkable. Patient states that she has been taking her clindamycin 300 mg twice a day. I told her that this is ineffective course of taking medicine. I have urged her to start taking it at least 3 times a day. Patient's glucose today is 260. I have changed her insulin regimen for the time being that she is on her prednisone. Hopefully, this will better control her sugars over the next week. If the patient has any difficulty, I told her that she can come back to the ER for reevaluation. Patient is cleared for discharge. - Differential Diagnosis cellulitis, rectal abscess, sepsis, dehydration, constipation, fourniere's Critical care attestation.: If time is entered above; I have spent that time in minutes in the direct care of this critically ill patient, excluding procedure time. ED Disposition Clinical Impression: Rectal pain, Hyperglycemia due to type 2 diabetes mellitus Disposition: TO HOME OR SELFCARE Is pt being admited?: No Does the pt Need Aspirin: No Condition: Stable Instructions: Diabetes Mellitus Type 2 in Adults (ED) Additional Instructions: Please start taking your clindamycin 3 times a day instead of just twice a day. Increase your levemir to 53U daily. If your sugars aren't controlled aftter 2 days, increase it to 55U daily. If that doesn't control your sugars in 2 days, increase your humalin- R to 20U with each meal. Follow up with your surgeon in 2 -3 days for re-check of your wound. Prescriptions: HYDROcodone/APAP 5-325 [[place] 5-325 mg TAB] 1 - 2 each PO Q6HR PRN #7 tablet PRN Reason: Pain Referrals: RAMÓN WILSON MD [Primary Care Provider] - 3-5 Days
[2017-11-17] MEDS ORDERED: CLEOCIN PO ONE (02:55)
== END 2017-11-17 04:03 | disposition home or self-care (01) ==
LOC: ED 19:36
DX: E11.65 Type 2 diabetes mellitus with hyperglycemia (principal); R10.2 Pelvic and perineal pain; I10 Essential (primary) hypertension; I25.2 Old myocardial infarction; Z91.012 Allergy to eggs; Z88.1 Allergy status to other antibiotic agents; Z88.6 Allergy status to analgesic agent
CPT/HCPCS: 36415; 72192; 80048; 82805; 82962; 85025

== ENCOUNTER 2017-12-02 19:25 | Emergency (ER) | payer MEDICARE ==
[2017-12-02] MEDS ORDERED: NACL 0.9% 1000 ML 1,000 ML IV ONE ×3 (19:45→23:13)
[2017-12-02] MEDS ORDERED: BABY ASPIRIN PO ONE (19:45)
--- NOTE | 2017-12-02 19:45 | Emergency Department Report ---
ED Chest Pain HPI - General Chief Complaint: Chest Pain Stated Complaint: HIGH BLOOD GLUCOSE Time Seen by Provider: 12/02/17 19:43 Source: patient, EMS Mode of arrival: Ambulatory Limitations: No Limitations - History of Present Illness Initial Comments: The gentleman presented to the ED with complaint of shortness of breath and chest pain. She denies any abdominal pain, nausea, vomiting and diarrhea. MD Complaint: chest pain -: Sudden Onset: during rest Pain Location: substernal Pain Radiation: none Severity: moderate Severity scale (0 -10): 5 Quality: aching, dull Consistency: constant Improves With: nothing Worsens With: nothing re: denies: nausea, vomting, diaphoresis Other Symptoms: denies: cough, fever Treatments Prior to Arrival: none Aspirin use within the Past 7 Days: (0) No - Related Data On Oral Contraceptives: No Home Medications Medication Instructions Recorded Confirmed Last Taken Lisinopril 20 mg PO DAILY 10/08/17 11/26/17 11/20/17 10:00 OXcarbazepine [Trileptal] 150 mg PO QHS 11/26/17 11/26/17 Unknown Zolpidem [Ambien] 10 mg PO QHS 11/26/17 11/26/17 Unknown Detemir (Nf) [Levemir (Nf)] 60 units SUB-Q HS 11/27/17 11/26/17 Unknown Previous Rx's Medication Instructions Recorded Last Taken Type Aspirin [Aspirin BABY CHEW TAB] 81 mg PO QDAY #30 tab.chew 06/12/17 11/20/17 10: 00 Rx AtorvaSTATin [Lipitor] 40 mg PO QHS #30 tablet 06/12/17 11/19/17 22:00 Rx Clopidogrel [Plavix] 75 mg PO QDAY #30 tablet 06/12/17 11/20/17 10:00 Rx Insulin Regular, Human [HumuLIN R] 15 unit SQ AC #600 units 10/14/17 11/20/17 18 :00 Rx levoFLOXacin [Levaquin TAB] 750 mg PO DAILY #3 tablet 11/23/17 Unknown Rx HYDROcodone/APAP 7.5-325 [[place] 1 each PO Q8HR PRN #18 tablet 11/28/17 Unknown Rx 7.5/325] Hydroxychloroquine [Plaquenil] 200 mg PO QDAY tablet 11/28/17 Unknown Rx Lispro Insulin [Humalog] 0 unit SUB-Q ACHS units 11/28/17 Unknown Rx Nicotine [Habitrol] 21 mg TD QDAY patch 11/28/17 Unknown Rx OXcarbazepine [Trileptal] 150 mg PO QHS tablet 11/28/17 Unknown Rx Ranolazine ER [Ranexa ER] 500 mg PO BID tablet 11/28/17 Unknown Rx Temazepam [Restoril] 15 mg PO QHS PRN #30 capsule 11/28/17 Unknown Rx predniSONE [Deltasone] 20 mg PO BID tablet 11/28/17 Unknown Rx Allergies Allergy/AdvReac Type Severity Reaction Status Date / Time egg Allergy Hives Verified 11/12/17 07:52 tramadol HCl [From Ultram] Allergy Hives Verified 11/12/17 07:52 vancomycin Allergy Hives Verified 11/12/17 07:52 Heart Score - HEART Score History: Slightly suspicious EKG: Non-specific Age: < 45 Risk factors: 1-2 risk factors Troponin: < normal limit HEART Score: 2 - Critical Actions Critical Actions: 0-3 pts:0.9-1.7%risk of adverse cardiac event.Candidate for discharge ED Review of Systems ROS: Stated complaint: HIGH BLOOD GLUCOSE Other details as noted in HPI Comment: All other systems reviewed and negative Constitutional: denies: chills, fever Eyes: denies: eye pain ENT: denies: ear pain Respiratory: shortness of breath, SOB with exertion. denies: cough Cardiovascular: chest pain, palpitations, dyspnea on exertion Endocrine: increased thirst Gastrointestinal: denies: abdominal pain, nausea, vomiting, diarrhea Genitourinary: denies: urgency, dysuria Musculoskeletal: denies: back pain, joint swelling Skin: denies: rash, lesions, change in color Neurological: denies: headache, weakness, numbness Psychiatric: denies: anxiety, depression Hematological/Lymphatic: denies: easy bleeding, easy bruising ED Past Medical Hx - Past Medical History Hx Hypertension: Yes Hx CVA: No Hx Heart Attack/AMI: Yes (05/22, cardiac stent x1) Hx Congestive Heart Failure: No Hx Diabetes: Yes Hx Deep Vein Thrombosis: No Hx Pulmonary Embolism: No Hx GERD: No Hx Liver Disease: No Hx Renal Disease: No Hx Sickle Cell Disease: No Hx Arthritis: No Hx Headaches / Migraines: No Hx Seizures: No Hx Kidney Stones: No Hx 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 for abscess - Social History Smoking Status: Current Every Day Smoker - Medications Home Medications: Home Medications Medication Instructions Recorded Confirmed Last Taken Type Aspirin [Aspirin BABY CHEW TAB] 81 mg PO QDAY #30 tab.chew 06/12/17 11/26/17 10:00 Rx AtorvaSTATin [Lipitor] 40 mg PO QHS #30 tablet 06/12/17 11/26/17 11/19/17 22:00 Rx Clopidogrel [Plavix] 75 mg PO QDAY #30 tablet 06/12/17 11/26/17 11/20/17 10:00 Rx Lisinopril 20 mg PO DAILY 10/08/17 11/26/17 11/20/17 10:00 History Insulin Regular, Human [HumuLIN R] 15 unit SQ AC #600 units 10/14/17 11/26/17 18:00 Rx levoFLOXacin [Levaquin TAB] 750 mg PO DAILY #3 tablet 11/23/17 11/26/17 Unknown Rx OXcarbazepine [Trileptal] 150 mg PO QHS 11/26/17 11/26/17 Unknown History Zolpidem [Ambien] 10 mg PO QHS 11/26/17 11/26/17 Unknown History Detemir (Nf) [Levemir (Nf)] 60 units SUB-Q HS 11/27/17 11/26/17 Unknown History HYDROcodone/APAP 7.5-325 [[place] 1 each PO Q8HR PRN #18 tablet 11/28/17 Unknown Rx 7.5/325] Hydroxychloroquine [Plaquenil] 200 mg PO QDAY tablet 11/28/17 Unknown Rx Lispro Insulin [Humalog] 0 unit SUB-Q ACHS units 11/28/17 Unknown Rx Nicotine [Habitrol] 21 mg TD QDAY patch 11/28/17 Unknown Rx OXcarbazepine [Trileptal] 150 mg PO QHS tablet 11/28/17 Unknown Rx Ranolazine ER [Ranexa ER] 500 mg PO BID tablet 11/28/17 Unknown Rx Temazepam [Restoril] 15 mg PO QHS PRN #30 capsule 11/28/17 Unknown Rx predniSONE [Deltasone] 20 mg PO BID tablet 11/28/17 Unknown Rx ED Physical Exam - General Limitations: No Limitations General appearance: alert, in no apparent distress - Head Head exam: Present: atraumatic, normocephalic, normal inspection - Eye Eye exam: Present: normal appearance, PERRL, EOMI Pupils: Present: normal accommodation - ENT ENT exam: Present: normal exam, normal orophraynx, mucous membranes moist - Neck Neck exam: Present: normal inspection, full ROM. Absent: tenderness - Respiratory Respiratory exam: Present: normal lung sounds bilaterally. Absent: respiratory distress, wheezes, rales, rhonchi, stridor - Cardiovascular Cardiovascular Exam: Present: regular rate, normal rhythm, normal heart sounds - GI/Abdominal GI/Abdominal exam: Present: soft, normal bowel sounds. Absent: distended, tenderness, guarding, rebound, rigid - Extremities Exam Extremities exam: Present: normal inspection, full ROM, normal capillary refill - Back Exam Back exam: Present: normal inspection, full ROM. Absent: tenderness, CVA tenderness (R), CVA tenderness (L) - Neurological Exam Neurological exam: Present: alert, oriented X3, CN II-XII intact - Psychiatric Psychiatric exam: Present: normal affect, normal mood - Skin Skin exam: Present: warm, dry, intact, normal color. Absent: rash ED Course Vital Signs 12/02/17 12/02/17 12/02/17 19:41 19:43 19:45 Temperature 97.9 F Pulse Rate 111 H 110 H 108 H Respiratory 14 17 18 Rate Blood Pressure 115/73 100/76 Blood Pressure [Right] O2 Sat by Pulse 99 97 98 Oximetry 12/02/17 12/02/17 12/02/17 20:00 20:16 20:30 Temperature Pulse Rate 111 H 111 H 102 H Respiratory 25 H 19 20 Rate Blood Pressure 100/76 116/91 116/91 Blood Pressure [Right] O2 Sat by Pulse 97 98 Oximetry 12/02/17 12/03/17 21:04 06:16 Temperature 98.5 F Pulse Rate 101 H 98 H Respiratory 25 H 18 Rate Blood Pressure 116/91 Blood Pressure 147/88 [Right] O2 Sat by Pulse 100 99 Oximetry - Reevaluation(s) Reevaluation #1: 12/03/17 02:46 Patient care was transitioned to Dr Coreas at shift change pending repeat BMP and disposition. ROMULO score - Romulo Score Age > 65: (0) No Aspirin use within the Past 7 Days: (0) No 3 or more CAD Risk Factors: (0) No 2 or more Angina events in past 24 hrs: (0) No Known CAD with more than 50% Stenosis: (0) No Elevated Cardiac Markers: (0) No ST Deviation Greater than 0.5mm: (0) No ROMULO Score: 0 ED Medical Decision Making - Lab Data Result diagrams: 12/02/17 Unknown 12/03/17 02:20 - EKG Data -: EKG Interpreted by Hi EKG shows normal: sinus rhythm Rate: tachycardia (101) - EKG Data When compared to previous EKG there are: previous EKG unavailable Interpretation: nonspecific ST-T wave cristobal, other (No STEMI) - Radiology Data Radiology results: report reviewed, image reviewed - Medical Decision Making Uncontrolled Diabetes. Chest Pain. Shortness of Breath. Critical care attestation.: If time is entered above; I have spent that time in minutes in the direct care of this critically ill patient, excluding procedure time. ED Disposition Clinical Impression: Marijuana abuse, Atypical chest pain Uncontrolled diabetes mellitus Qualifiers: Diabetes mellitus type: type 2 Glycemic state: with hyperglycemia Qualified Code(s): E11.65 - Type 2 diabetes mellitus with hyperglycemia Disposition: DC-01 TO HOME OR SELFCARE Is pt being admited?: No Does the pt Need Aspirin: No Condition: Stable Instructions: Chest Pain (ED), Diabetes Mellitus Type 2 in Adults (ED) Additional Instructions: Taking your diabetes medications. Try and stay away from foods that are high in sugar, carbohydrates and starches. Keep a blood sugar log. Follow up with a primary care physician. I have given you a referral for a local fulling machine operator , Dr. Suzao. Return to the emergency Department with any worsening of your symptoms or any acute distress. Referrals: JOSE SUAZO MD [Staff Physician] - 3-5 Days PRIMARY CARE, [Referring] - 3-5 Days
[2017-12-02 20:33] LABS: Basophils % (Auto) 0.7 % (0.0-1.8); Eosinophils % (Auto) 0.2 % (0.0-4.3); Hematocrit 33.3 % (30.3-42.9); Hemoglobin 10.6 gm/dl (10.1-14.3); Lymphocytes # (Auto) 2.1 K/mm3 (1.2-5.4); Lymphocytes % (Auto) 28.8 % (13.4-35.0); Mean Corpuscular HGB Conc 32 % (30-34); Mean Corpuscular Volume 72 fl (79-97); Monocytes # (Auto) 0.3 K/mm3 (0.0-0.8); Monocytes % (Auto) 3.9 % (0.0-7.3); Red Blood Count 4.61 M/mm3 (3.65-5.03); Red Cell Distribution Width 18.7 % (13.2-15.2)
[2017-12-02 20:41] LABS: Mean Corpuscular Hemoglobin 23 pg (28-32)
[2017-12-02] MEDS ORDERED: HumuLIN R IV ONE (21:32)
[2017-12-02 21:40] LABS: INR TNR (0.87-1.13); Partial Thromboplastin Time TNR Sec. (24.2-36.6)
[2017-12-02] MEDS ORDERED: MORPHINE IV ONE (21:43)
[2017-12-02 21:49] LABS: INR 0.99 (0.87-1.13); Partial Thromboplastin Time 24.8 Sec. (24.2-36.6)
[2017-12-02 21:56] LABS: Bilirubin,Urine NEG (Negative); Blood,Urine NEG (Negative); Color,Urine Straw (Yellow); Mucus,Urine FEW /HPF; Protein,Urine <15 mg/dL mg/dL (Negative); Urobilinogen,Urine < 2.0 mg/dL (<2.0); WBC,Urine < 1.0 /HPF (0.0-6.0)
[2017-12-02 21:57] LABS: Lipase 22 units/L (13-60)
[2017-12-02 22:01] LABS: Platelet Count 22 K/mm3 (140-440)
[2017-12-02 22:41] LABS: Amphetamine Screen,Urine PRESUMPTIVE NEGATIVE; Benzodiazepines Screen,Urine PRESUMPTIVE NEGATIVE; Cocaine Screen,Urine PRESUMPTIVE NEGATIVE; Methadone Screen,Urine PRESUMPTIVE NEGATIVE; Opiate Screen,Urine PRESUMPTIVE NEGATIVE
[2017-12-02 22:50] LABS: Alanine Aminotransferase 11 units/L (7-56); Albumin 3.5 g/dL (3.9-5); BUN/Creatinine Ratio 10; Blood Urea Nitrogen 8 mg/dL (7-17); Calcium 8.7 mg/dL (8.4-10.2); Hemolysis Index 27
[2017-12-02 22:57] LABS: Cannabinoid Screen,Urine PRESUMPTIVE POSITIVE
--- NOTE | 2017-12-02 23:13 | XRay Report ---
FINAL REPORT PROCEDURE: XR CHEST 1V AP TECHNIQUE: Chest radiograph anteroposterior view. CPT 92747 HISTORY: Chest Pain COMPARISON: 11/26/2017 FINDINGS: Heart: Normal. Mediastinum/Vessels: Normal. Lungs/Pleural space: Normal. Bony thorax: No acute osseous abnormality. Life support devices: None. IMPRESSION: No acute cardiopulmonary abnormality.
--- NOTE | 2017-12-03 01:35 | Cat Scan Report ---
FINAL REPORT EXAM: CT ANGIO CHEST HISTORY: chest pain and shortness of breath TECHNIQUE: A CT angiogram was performed following the intravenous injection of iodinated contrast. MIP sagittal coronal reconstructions were reviewed. Comparison is made to the study of 06/13/2017. FINDINGS: There is no evidence of pulmonary embolus, aortic dissection or vascular congestion. The thoracic aorta is normal in caliber. The heart size is normal. Pericardial fluid is not seen. There is no evidence of adenopathy. The lungs reveal diffuse subpleural blebs bilaterally. The previous noted nodule right upper lobe is not seen on the study. Pleural fluid is not seen. At the thoracic inlet the thyroid gland appears normal. In the upper abdomen the adrenal glands appear normal. The skeletal structures do not show any acute changes. IMPRESSION: No evidence of pulmonary embolus, aortic dissection, or vascular congestion. A few small parenchymal blebs in both lungs. No acute process in the chest.
[2017-12-03 02:48] LABS: BUN/Creatinine Ratio 10; Blood Urea Nitrogen 6 mg/dL (7-17); Calcium 8.8 mg/dL (8.4-10.2); Hemolysis Index 125
[2017-12-03 06:18] VITALS: BP 147/88
== END 2017-12-03 04:20 | disposition home or self-care (01) ==
LOC: ED 19:25
DX: E11.65 Type 2 diabetes mellitus with hyperglycemia (principal); R07.89 Other chest pain; F12.10 Cannabis abuse, uncomplicated; I10 Essential (primary) hypertension; I21.9 Acute myocardial infarction, unspecified; F17.200 Nicotine dependence, unspecified, uncomplicated; Z79.4 Long term (current) use of insulin; Z91.012 Allergy to eggs; Z88.1 Allergy status to other antibiotic agents; Z88.5 Allergy status to narcotic agent
CPT/HCPCS: 36415; 71045; 71275; 80048; 80053; 80307; 81001; 82550; 82962; 83690; 83880; 84484; 84703; 85025; 85379; 85610; 85730; 93005; 93010; 96361; 96374; 96375; 99285; J2270; J7030; Q9967; J1815

== ENCOUNTER 2017-12-07 11:53 | Emergency (ER) | payer MEDICARE ==
[2017-12-07 12:06] VITALS: BP 125/75
[2017-12-07 12:41] LABS: Bacteria,Urine 1+ /HPF (Negative); Bilirubin,Urine NEG (Negative); Blood,Urine NEG (Negative); Color,Urine Yellow (Yellow); Protein,Urine <15 mg/dL mg/dL (Negative); Urobilinogen,Urine < 2.0 mg/dL (<2.0); WBC,Urine < 1.0 /HPF (0.0-6.0)
[2017-12-07 13:10] LABS: HCG Qualitative,Urine Negative (Negative)
== END 2017-12-07 17:53 | disposition left against medical advice (07) ==
LOC: ED 11:53
DX: R10.30 Lower abdominal pain, unspecified (principal); R11.2 Nausea with vomiting, unspecified; Z53.21 Procedure and treatment not carried out due to patient leaving prior to being seen by health care provider
CPT/HCPCS: 81001; 81025

== ENCOUNTER 2018-04-19 13:23 | Emergency (ER) | payer MEDICARE ==
[2018-04-19] MEDS ORDERED: PERCOCET 5/325 PO PRN (13:50)
[2018-04-19] MEDS ORDERED: NACL 0.9% 1000 ML 1,000 ML IV ONE (13:50)
[2018-04-19] MEDS ORDERED: HumuLIN R IV ONE (13:51)
--- NOTE | 2018-04-19 13:52 | Emergency Department Report ---
ED General Adult HPI - General Chief complaint: Hyperglycemia Stated complaint: HYPERGLYCEMIA/FEVER/PAIN Time Seen by Provider: 04/19/18 13:41 Source: patient Mode of arrival: Ambulatory Limitations: No Limitations - History of Present Illness Initial comments: Is a 38-year-old -[place] female that comes to the emergency room today with numerous complaints she said that she has a draining abscess on her backside. She states she has a history of hydradenitis and sees a doctor for these. She is not to take any additional antibiotics. She also complains that her blood sugars been high despite taking her insulin. She has no fever. She also states that she is having pain from her lupus. She states that she is taking her home medications. Patient states that she has follow-up appointments with her specialist that because it's the beginning of the year she is having to wait for those referrals to come through. -: Gradual Improves with: medication (NORCO) Associated Symptoms: malaise Treatments Prior to Arrival: NSAID - Related Data Home Medications Medication Instructions Recorded Confirmed Last Taken RX: Lisinopril 20 mg PO DAILY 10/08/17 11/26/17 11/20/17 10:00 Zolpidem [Ambien] 10 mg PO QHS 11/26/17 11/26/17 Unknown RX: Detemir (Nf) [Levemir (Nf)] 60 units SUB-Q HS 11/27/17 11/26/17 Unknown Previous Rx's Medication Instructions Recorded Last Taken Type RX: Aspirin [Aspirin BABY CHEW TAB] 81 mg PO QDAY #30 tab.chew 06/12/17 11/20/17 10:00 Rx RX: Clopidogrel [Plavix] 75 mg PO QDAY #30 tablet 06/12/17 11/20/17 10:00 Rx RX: Insulin Regular, Human 15 unit SQ AC #600 units 10/14/17 11/20/17 18:00 Rx [HumuLIN R] RX: Hydroxychloroquine [Plaquenil] 200 mg PO QDAY tablet 11/28/17 Unknown Rx RX: Lispro Insulin [Humalog] 0 unit SUB-Q ACHS units 11/28/17 Unknown Rx RX: predniSONE [Deltasone] 20 mg PO BID tablet 11/28/17 Unknown Rx Allergies Allergy/AdvReac Type Severity Reaction Status Date / Time egg Allergy Hives Verified 12/07/17 12:03 tramadol HCl [From Ultram] Allergy Hives Verified 12/07/17 12:03 vancomycin Allergy Hives Verified 12/07/17 12:03 ED Review of Systems ROS: Stated complaint: HYPERGLYCEMIA/FEVER/PAIN Other details as noted in HPI Comment: All other systems reviewed and negative Constitutional: denies: chills, fever Eyes: denies: eye pain ENT: denies: ear pain Respiratory: denies: cough Cardiovascular: denies: chest pain Endocrine: denies: excessive sweating Gastrointestinal: denies: abdominal pain, nausea, vomiting Genitourinary: denies: urgency, dysuria Musculoskeletal: arthralgia Skin: as per HPI, lesions. denies: rash Neurological: weakness. denies: headache Psychiatric: denies: anxiety, depression Hematological/Lymphatic: denies: easy bleeding ED Past Medical Hx - Past Medical History Hx Hypertension: Yes Hx CVA: No Hx Heart Attack/AMI: Yes (05/22, cardiac stent x1) Hx Congestive Heart Failure: No Hx Diabetes: Yes Hx Deep Vein Thrombosis: No Hx Pulmonary Embolism: No Hx GERD: No Hx Liver Disease: No Hx Renal Disease: No Hx Sickle Cell Disease: No Hx Arthritis: No Hx Headaches / Migraines: No Hx Seizures: No Hx Kidney Stones: No Hx 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 for abscess - Family History Family history: no significant - Social History Smoking Status: Current Every Day Smoker Substance Use Type: None - Medications Home Medications: Home Medications Medication Instructions Recorded Confirmed Last Taken Type RX: Aspirin [Aspirin BABY CHEW TAB] 81 mg PO QDAY #30 tab.chew 06/12/17 11/26/17 11/20/17 10:00 Rx RX: Clopidogrel [Plavix] 75 mg PO QDAY #30 tablet 06/12/17 11/26/17 11/20/17 10:00 Rx RX: Lisinopril 20 mg PO DAILY 10/08/17 11/26/1718 10:00 History RX: Insulin Regular, Human 15 unit SQ AC #600 units 10/14/17 11/26/17 11/20/17 18:00 Rx [HumuLIN R] Zolpidem [Ambien] 10 mg PO QHS 11/26/17 11/26/17 Unknown History RX: Detemir (Nf) [Levemir (Nf)] 60 units SUB-Q HS 11/27/17 11/26/17 Unknown History RX: Hydroxychloroquine [Plaquenil] 200 mg PO QDAY tablet 11/28/17 Unknown Rx RX: Lispro Insulin [Humalog] 0 unit SUB-Q ACHS units 11/28/17 Unknown Rx RX: predniSONE [Deltasone] 20 mg PO BID tablet 11/28/17 Unknown Rx ED Physical Exam - General Limitations: No Limitations General appearance: alert - Head Head exam: Present: atraumatic - Eye Eye exam: Present: normal appearance, PERRL - ENT ENT exam: Present: normal exam - Neck Neck exam: Present: normal inspection - Respiratory Respiratory exam: Present: normal lung sounds bilaterally - Cardiovascular Cardiovascular Exam: Present: regular rate - GI/Abdominal GI/Abdominal exam: Present: soft, normal bowel sounds - Rectal Rectal exam: Present: deferred - Extremities Exam Extremities exam: Present: normal inspection - Back Exam Back exam: Present: normal inspection, full ROM - Neurological Exam Neurological exam: Present: alert, oriented X3 - Psychiatric Psychiatric exam: Present: normal affect, normal mood - Skin Skin exam: Present: warm, dry, other (DRAINING ABSCESS ON BUTTOCK- HAS SEEN DERM- CHRONIC ISSUE. PT IS NOT TO TAKE ANTIBIOTICS PER DERM. NO FEVER. NON TOXIC. WBC NORMAL) ED Course Vital Signs 04/19/18 04/19/18 04/19/18 13:34 14:08 15:54 Temperature 98.2 F 98.7 F Pulse Rate 102 H 81 Respiratory 20 17 18 Rate Blood Pressure 135/69 148/83 [Left] O2 Sat by Pulse 100 100 Oximetry - Reevaluation(s) Reevaluation #1: 04/19/18 14:43 ADDITIONAL HOME MEDS CYMBALTA ALIA COOK SHE SEES AN MD FOR HER HIDRADENITIS - HE HAS TOLD HER NO ADDITIONAL ANTIBIOTICS NO FEVER WBC NORMAL ED Medical Decision Making - Lab Data Result diagrams: 04/19/18 14:02 04/19/18 14:02 - Medical Decision Making NUMEROUS COMPLAINTS SHE HAS COME HERE BECAUSE NEW YEAR AND SHE CAN'T GET IN WITH SPECIALIST 1. DRAINING ABSCESS. NO FEVER. NO SYSTEMIC INFECTION. HAS SEEN DERM. THEY TOLD HER NO ANTIBIOTICS. 2. CHRONIC PAIN- LUPUS- ON MEDS 3. HYPERGYCEMIA- REPORTS TAKING MEDS. NO DKA. LABS NOTED BG CHECKED AND DECREASING DISCUSSED MED COMPLIANCE AND WOUND CARE WITH PT. VSS ON DC AMBULATORY TAKING PO Labs 04/19/18 04/19/18 04/19/18 13:31 14:02 14:02 WBC 10.1 RBC 4.92 Hgb 11.2 Hct 34.8 MCV 71 L MCH 23 L MCHC 32 RDW 19.0 H Plt Count 269 Lymph % (Auto) 25.6 [place] % (Auto) 4.4 Eos % (Auto) 0.4 Baso % (Auto) 0.7 Lymph # 2.6 [place] # 0.5 Eos # 0.0 Baso # 0.1 Seg Neutrophils % 68.9 Seg Neutrophils # 7.0 VBG pH Sodium 137 Potassium 4.0 Chloride 101.2 Carbon Dioxide 22 Anion Gap 18 BUN 8 Creatinine 0.7 Estimated GFR > 60 BUN/Creatinine Ratio 11 Glucose 353 H POC Glucose 329 H Ketones Quantitative Negative Calcium 8.8 Total Bilirubin 0.20 AST 12 ALT 12 Alkaline Phosphatase 91 Total Protein 6.9 Albumin 3.7 L Albumin/Globulin Ratio 1.2 Urine Color Urine Turbidity Urine pH Ur Specific [place] Urine Protein Urine Glucose (UA) Urine Ketones Urine Blood Urine Nitrite Urine Bilirubin Urine Urobilinogen Ur Leukocyte Esterase Urine WBC (Auto) Urine RBC (Auto) U Epithel Cells (Auto) Urine Mucus Urine HCG, Qual 04/19/18 04/19/18 14:02 Unknown WBC RBC Hgb Hct MCV MCH MCHC RDW Plt Count Lymph % (Auto) [place] % (Auto) Eos % (Auto) Baso % (Auto) Lymph # [place] # Eos # Baso # Seg Neutrophils % Seg Neutrophils # VBG pH 7.371 Sodium Potassium Chloride Carbon Dioxide Anion Gap BUN Creatinine Estimated GFR BUN/Creatinine Ratio Glucose POC Glucose Ketones Quantitative Calcium Total Bilirubin AST ALT Alkaline Phosphatase Total Protein Albumin Albumin/Globulin Ratio Urine Color Yellow Urine Turbidity Clear Urine pH 6.0 Ur Specific [place] 1.020 Urine Protein <15 mg/dl Urine Glucose (UA) >=500 Urine Ketones Neg Urine Blood Neg Urine Nitrite Neg Urine Bilirubin Neg Urine Urobilinogen 2.0 Ur Leukocyte Esterase Neg Urine WBC (Auto) 1.0 Urine RBC (Auto) 1.0 U Epithel Cells (Auto) 1.0 Urine Mucus Few Urine HCG, Qual Negative - Differential Diagnosis RO SYSTEMIC INFECTION Critical care attestation.: If time is entered above; I have spent that time in minutes in the direct care of this critically ill patient, excluding procedure time. ED Disposition Clinical Impression: Lupus (systemic lupus erythematosus), IDDM (insulin dependent diabetes mellitus), Hyperglycemia, Chronic pain Disposition: TO HOME OR SELFCARE Is pt being admited?: No Does the pt Need Aspirin: No Condition: Stable Additional Instructions: CONTINUE HOME MEDS SOAK IN BATH TUB WITH ESPOM SALTS 3 TIMES PER DAY FOR 20 MINUTES EACH TIME TO HELP HEAL AREA FOLLOW UP YOU HAD PLANNED DIABETIC DIET INSULIN PER ROUTINE TO KEEP BLOOD SUGAR CONTROLLED HYDRATE WELL WITH WATER MOTRIN OR TYLENOL FOR PAIN OR FEVER CONTINUE NORCO AND PREDNISONE FOLLOW UP WITH PCP YULI TO GET YOUR MANY HEALTH CARE NEEDS ADDRESSED ACTIVITY TOLERATED Referrals: PRIMARY MD FRANCO [Primary Care Provider] - 3-5 Days SOLOMON BARRAZA MD [Staff Physician] - 3-5 Days Time of Disposition: 14:45
[2018-04-19 14:08] LABS: Bilirubin,Urine NEG (Negative); Blood,Urine NEG (Negative); Color,Urine Yellow (Yellow); Mucus,Urine FEW /HPF; Protein,Urine <15 mg/dL mg/dL (Negative)
[2018-04-19 14:10] LABS: HCG Qualitative,Urine Negative (Negative)
[2018-04-19] MEDS ORDERED: ZOFRAN IV ONE (14:13)
[2018-04-19] MEDS ORDERED: ZOFRAN ONE (14:14)
[2018-04-19 14:28] LABS: Basophils # (Auto) 0.1 K/mm3 (0.0-0.1); Basophils % (Auto) 0.7 % (0.0-1.8); Eosinophils % (Auto) 0.4 % (0.0-4.3); Hematocrit 34.8 % (30.3-42.9); Hemoglobin 11.2 gm/dl (10.1-14.3); Lymphocytes # (Auto) 2.6 K/mm3 (1.2-5.4); Lymphocytes % (Auto) 25.6 % (13.4-35.0); Mean Corpuscular HGB Conc 32 % (30-34); Mean Corpuscular Volume 71 fl (79-97); Monocytes # (Auto) 0.5 K/mm3 (0.0-0.8); Monocytes % (Auto) 4.4 % (0.0-7.3); Platelet Count 269 K/mm3 (140-440); Red Blood Count 4.92 M/mm3 (3.65-5.03)
[2018-04-19 14:43] LABS: Alanine Aminotransferase 12 units/L (7-56); Albumin 3.7 g/dL (3.9-5); BUN/Creatinine Ratio 11; Blood Urea Nitrogen 8 mg/dL (7-17); Calcium 8.8 mg/dL (8.4-10.2); Hemolysis Index 15
[2018-04-19 15:56] VITALS: BP 148/83
== END 2018-04-19 15:56 | disposition home or self-care (01) ==
LOC: ED 13:23
DX: E11.65 Type 2 diabetes mellitus with hyperglycemia (principal); M32.9 Systemic lupus erythematosus, unspecified; G89.29 Other chronic pain; E11.9 Type 2 diabetes mellitus without complications; I25.2 Old myocardial infarction; F31.9 Bipolar disorder, unspecified; F17.200 Nicotine dependence, unspecified, uncomplicated; Z95.818 Presence of other cardiac implants and grafts; Z79.4 Long term (current) use of insulin; Z91.012 Allergy to eggs; Z88.6 Allergy status to analgesic agent; Z88.1 Allergy status to other antibiotic agents
CPT/HCPCS: 36415; 80053; 81001; 81025; 82010; 82805; 82962; 85025; 96361; 96374; 96375; 99284; J2405; J7030; J1815

== ENCOUNTER 2018-07-09 00:34 | Emergency (ER) | payer MEDICARE ==
[2018-07-09 00:49] VITALS: BP 122/93
[2018-07-09 01:35] LABS: HCG Qualitative,Urine Negative (Negative)
== END 2018-07-09 10:55 | disposition left against medical advice (07) ==
LOC: ED 00:34
DX: K62.89 Other specified diseases of anus and rectum (principal); Z53.21 Procedure and treatment not carried out due to patient leaving prior to being seen by health care provider
CPT/HCPCS: 81025; 82962

== ENCOUNTER 2018-07-11 15:45 | Emergency (ER) | payer MEDICARE ==
[2018-07-11 16:02] VITALS: BP 140/86
--- NOTE | 2018-07-11 16:04 | Emergency Department Report ---
Chief Complaint: Abdominal Pain Stated Complaint: ABD PAIN Time Seen by Provider: 07/11/18 16:02 - HPI History of Present Illness: This is a 38 y.o. female that presents with abdominal pain for 12 hours. Patient reports pain is in RUQ. cc: N/V/D - Exam Vital Signs: Vital Signs 07/11/18 16:01 Temperature 97.9 F Pulse Rate 100 H Respiratory 20 Rate Blood Pressure 140/86 O2 Sat by Pulse 99 Oximetry MSE screening note: Focused history and physical exam performed. Due to findings the following was ordered: Labs ACC for further evaluation. ED Disposition for MSE Condition: Stable Instructions: Abdominal Pain (ED)
[2018-07-11 17:02] LABS: Basophils # (Auto) 0.1 K/mm3 (0.0-0.1); Basophils % (Auto) 0.8 % (0.0-1.8); Eosinophils # (Auto) 0.1 K/mm3 (0.0-0.4); Eosinophils % (Auto) 0.5 % (0.0-4.3); Hemoglobin 11.9 gm/dl (10.1-14.3); Lymphocytes # (Auto) 1.8 K/mm3 (1.2-5.4); Lymphocytes % (Auto) 17.4 % (13.4-35.0); Mean Corpuscular HGB Conc 33 % (30-34); Mean Corpuscular Volume 74 fl (79-97); Monocytes # (Auto) 0.4 K/mm3 (0.0-0.8); Platelet Count 266 K/mm3 (140-440); Red Cell Distribution Width 18.3 % (13.2-15.2)
[2018-07-11 17:22] LABS: Alanine Aminotransferase 13 units/L (7-56); Albumin 4.3 g/dL (3.9-5); BUN/Creatinine Ratio 14; Blood Urea Nitrogen 10 mg/dL (7-17); Calcium 9.6 mg/dL (8.4-10.2); Hemolysis Index 3
[2018-07-11 18:37] LABS: Bilirubin,Urine NEG (Negative); Blood,Urine LG (Negative); Color,Urine Straw (Yellow); Protein,Urine <15 mg/dL mg/dL (Negative); Urobilinogen,Urine < 2.0 mg/dL (<2.0); WBC,Urine < 1.0 /HPF (0.0-6.0)
[2018-07-11] MEDS: NACL 0.9% 1000 ML 1,000 ML IV ONE ×2 (19:00→19:31)
[2018-07-11] MEDS ORDERED: TORADOL IV ONE (19:45)
[2018-07-11] MEDS ORDERED: ZOFRAN IV ONE (19:45)
--- NOTE | 2018-07-11 19:55 | Emergency Department Report ---
ED General Adult HPI - General Chief complaint: Abdominal Pain Stated complaint: ABD PAIN Time Seen by Provider: 07/11/18 16:02 Source: patient Mode of arrival: Ambulatory Limitations: No Limitations - History of Present Illness Initial comments: Pt is a 38 yo female who presents to the ED with c/o N/V/D that began yesterday. She has associated RUQ pain. The patient is able to keep down fluids. She denies any fever or urinary sx. The patient states she was previously told she had "gallbladder sludge" and was referred to a general surgeon but never followed up. The patient denies any CP or SOB. She states she has a hx of DM and takes humulin 30 units at night and 15 units with each meal. She states she has not taken her insulin since yesterday and has not checked her blood glucose either. The patient also has a hx of lupus and [place] last year where she had cardiac stent placed. Severity scale (0 -10): 9 - Related Data Home Medications Medication Instructions Recorded Confirmed Last Taken Lisinopril 20 mg PO DAILY 10/08/17 11/26/17 11/20/17 10:00 Zolpidem [Ambien] 10 mg PO QHS 11/26/17 11/26/17 Unknown Detemir (Nf) [Levemir (Nf)] 60 units SUB-Q HS 11/27/17 11/26/17 Unknown Previous Rx's Medication Instructions Recorded Last Taken Type Aspirin [Aspirin BABY CHEW TAB] 81 mg PO QDAY #30 tab.chew 06/12/17 11/20/17 10:00 Rx Clopidogrel [Plavix] 75 mg PO QDAY #30 tablet 06/12/17 11/20/17 10:00 Rx Insulin Regular, Human [HumuLIN R] 15 unit SQ AC #600 units 10/14/17 11/20/17 18:00 Rx Hydroxychloroquine [Plaquenil] 200 mg PO QDAY tablet 11/28/17 Unknown Rx Lispro Insulin [Humalog] 0 unit SUB-Q ACHS units 11/28/17 Unknown Rx predniSONE [Deltasone] 20 mg PO BID tablet 11/28/17 Unknown Rx Allergies Allergy/AdvReac Type Severity Reaction Status Date / Time egg Allergy Hives Verified 12/07/17 12:03 tramadol HCl [From Ultram] Allergy Hives Verified 12/07/17 12:03 vancomycin Allergy Hives Verified 12/07/17 12:03 ED Review of Systems ROS: Stated complaint: ABD PAIN Other details as noted in HPI Comment: All other systems reviewed and negative ED Past Medical Hx - Past Medical History Previous Medical History?: Yes Hx Hypertension: Yes Hx CVA: No Hx Heart Attack/AMI: Yes (05/22, cardiac stent x1) Hx Congestive Heart Failure: No Hx Diabetes: Yes Hx Deep Vein Thrombosis: No Hx Pulmonary Embolism: No Hx GERD: No Hx Liver Disease: No Hx Renal Disease: No Hx Sickle Cell Disease: No Hx Arthritis: No Hx Headaches / Migraines: No Hx Seizures: No Hx Kidney Stones: No 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 for abscess - Social History Smoking Status: Current Every Day Smoker Substance Use Type: Marijuana - Medications Home Medications: Home Medications Medication Instructions Recorded Confirmed Last Taken Type Aspirin [Aspirin BABY CHEW TAB] 81 mg PO QDAY #30 tab.chew 06/12/17 11/26/17 11/20/17 10:00 Rx Clopidogrel [Plavix] 75 mg PO QDAY #30 tablet 06/12/17 11/26/17 11/20/17 10:00 Rx Lisinopril 20 mg PO DAILY 10/08/17 11/26/17 11/20/17 10:00 History Insulin Regular, Human [HumuLIN R] 15 unit SQ AC #600 units 10/14/17 11/26/17 11/20/17 18:00 Rx Zolpidem [Ambien] 10 mg PO QHS 11/26/17 11/26/17 Unknown History Detemir (Nf) [Levemir (Nf)] 60 units SUB-Q HS 11/27/17 11/26/17 Unknown History Hydroxychloroquine [Plaquenil] 200 mg PO QDAY tablet 11/28/17 Unknown Rx Lispro Insulin [Humalog] 0 unit SUB-Q ACHS units 11/28/17 Unknown Rx predniSONE [Deltasone] 20 mg PO BID tablet 11/28/17 Unknown Rx ED Physical Exam - General Limitations: No Limitations General appearance: alert, in no apparent distress - Head Head exam: Present: atraumatic, normocephalic - Eye Eye exam: Present: normal appearance - ENT ENT exam: Present: mucous membranes moist - Respiratory Respiratory exam: Present: normal lung sounds bilaterally. Absent: respiratory distress, wheezes, rales, rhonchi, stridor, chest wall tenderness, accessory muscle use, decreased breath sounds, prolonged expiratory - Cardiovascular Cardiovascular Exam: Present: regular rate, normal rhythm, normal heart sounds. Absent: systolic murmur, diastolic murmur, rubs, gallop - GI/Abdominal GI/Abdominal exam: Present: soft, tenderness (mild RUQ ttp), guarding (vol untary), normal bowel sounds. Absent: distended, rebound, rigid - Neurological Exam Neurological exam: Present: alert, oriented X3 - Psychiatric Psychiatric exam: Present: normal affect, normal mood - Skin Skin exam: Present: warm, dry, intact ED Course Vital Signs 07/11/18 16:01 Temperature 97.9 F Pulse Rate 100 H Respiratory 20 Rate Blood Pressure 140/86 O2 Sat by Pulse 99 Oximetry - Reevaluation(s) Reevaluation #1: 07/11/18 8:00 PM pt refused IV, refused IV fluids, and EKG ED Medical Decision Making - Lab Data Result diagrams: 07/11/18 16:44 07/11/18 16:44 Lab Results 07/11/18 07/11/18 07/11/18 Range/Units 16:44 16:44 16:44 WBC 10.6 (4.5-11.0) K/mm3 RBC 4.90 (3.65-5.03) M/mm3 Hgb 11.9 (10.1-14.3) gm/dl Hct 36.0 (30.3-42.9) % MCV 74 L (79-97) fl MCH 24 L (28-32) pg MCHC 33 (30-34) % RDW 18.3 H (13.2-15.2) % Plt Count 266 (140-440) K/mm3 Lymph % (Auto) 17.4 (13.4-35.0) % Saline % (Auto) 4.0 (0.0-7.3) % Eos % (Auto) 0.5 (0.0-4.3) % Baso % (Auto) 0.8 (0.0-1.8) % Lymph # 1.8 (1.2-5.4) K/mm3 Saline # 0.4 (0.0-0.8) K/mm3 Eos # 0.1 (0.0-0.4) K/mm3 Baso # 0.1 (0.0-0.1) K/mm3 Seg Neutrophils % 77.3 H (40.0-70.0) % Seg Neutrophils # 8.2 H (1.8-7.7) K/mm3 Sodium 136 L (137-145) mmol/L Potassium 4.7 (3.6-5.0) mmol/L Chloride 101.1 (98-107) mmol/L Carbon Dioxide 21 L (22-30) mmol/L Anion Gap 19 mmol/L BUN 10 (7-17) mg/dL Creatinine 0.7 (0.7-1.2) mg/dL Estimated GFR > 60 ml/min BUN/Creatinine Ratio 14 % Glucose 338 H (65-100) mg/dL Calcium 9.6 (8.4-10.2) mg/dL Total Bilirubin 0.40 (0.1-1.2) mg/dL AST 12 (5-40) units/L ALT 13 (7-56) units/L Alkaline Phosphatase 96 (35-129) units/L Total Protein 7.7 (6.3-8.2) g/dL Albumin 4.3 (3.9-5) g/dL Albumin/Globulin Ratio 1.3 % Lipase 40 (13-60) units/L HCG, Qual Negative (Negative) Urine Color (Yellow) Urine Turbidity (Clear) Urine pH (5.0-7.0) Ur Specific [place] (1.003-1.030) Urine Protein (Negative) mg/dL Urine Glucose (UA) (Negative) mg/dL Urine Ketones (Negative) mg/dL Urine Blood (Negative) Urine Nitrite (Negative) Urine Bilirubin (Negative) Urine Urobilinogen (<2.0) mg/dL Ur Leukocyte Esterase (Negative) Urine WBC (Auto) (0.0-6.0) /HPF Urine RBC (Auto) (0.0-6.0) /HPF U Epithel Cells (Auto) (0-13.0) /HPF 07/11/18 Range/Units 17:37 WBC (4.5-11.0) K/mm3 RBC (3.65-5.03) M/mm3 Hgb (10.1-14.3) gm/dl Hct (30.3-42.9) % MCV (79-97) fl MCH (28-32) pg MCHC (30-34) % RDW (13.2-15.2) % Plt Count (140-440) K/mm3 Lymph % (Auto) (13.4-35.0) % Saline % (Auto) (0.0-7.3) % Eos % (Auto) (0.0-4.3) % Baso % (Auto) (0.0-1.8) % Lymph # (1.2-5.4) K/mm3 Saline # (0.0-0.8) K/mm3 Eos # (0.0-0.4) K/mm3 Baso # (0.0-0.1) K/mm3 Seg Neutrophils % (40.0-70.0) % Seg Neutrophils # (1.8-7.7) K/mm3 Sodium (137-145) mmol/L Potassium (3.6-5.0) mmol/L Chloride (98-107) mmol/L Carbon Dioxide (22-30) mmol/L Anion Gap mmol/L BUN (7-17) mg/dL Creatinine (0.7-1.2) mg/dL Estimated GFR ml/min BUN/Creatinine Ratio % Glucose (65-100) mg/dL Calcium (8.4-10.2) mg/dL Total Bilirubin (0.1-1.2) mg/dL AST (5-40) units/L ALT (7-56) units/L Alkaline Phosphatase (35-129) units/L Total Protein (6.3-8.2) g/dL Albumin (3.9-5) g/dL Albumin/Globulin Ratio % Lipase (13-60) units/L HCG, Qual (Negative) Urine Color Straw (Yellow) Urine Turbidity Clear (Clear) Urine pH 6.0 (5.0-7.0) Ur Specific [place] 1.025 (1.003-1.030) Urine Protein <15 mg/dl (Negative) mg/dL Urine Glucose (UA) >=500 (Negative) mg/dL Urine Ketones Neg (Negative) mg/dL Urine Blood Lg (Negative) Urine Nitrite Neg (Negative) Urine Bilirubin Neg (Negative) Urine Urobilinogen < 2.0 (<2.0) mg/dL Ur Leukocyte Esterase Neg (Negative) Urine WBC (Auto) < 1.0 (0.0-6.0) /HPF Urine RBC (Auto) 9.0 (0.0-6.0) /HPF U Epithel Cells (Auto) < 1.0 (0-13.0) /HPF Vital Signs 07/11/18 16:01 Temperature 97.9 F Pulse Rate 100 H Respiratory 20 Rate Blood Pressure 140/86 O2 Sat by Pulse 99 Oximetry - Radiology Data Radiology results: report reviewed cc: LOUISA GARNETT PROCEDURE: US ABDOMEN LIMITED HISTORY: RUQ pain FINDINGS: Real-time ultrasound of the right upper quadrant was performed and demonstrates no evidence of gallstones or cholecystitis. The common duct measures 0.36 cm which is within normal limits. Abdominal aorta measures 2.4 cm which is normal. The right kidney measures 10.2 x 5.4 x 5.7 cm. There is no evidence of hydronephrosis. IMPRESSION: No evidence of gallstones or cholecystitis This document is electronically signed by Low Regalado MD., July 11 2018 08:51:41 PM ET - Medical Decision Making Pt is a 38 yo female who presents to the ED with c/o N/V/D that began yesterday. She has associated RUQ pain. The patient is able to keep down fluids. She denies any fever or urinary sx. The patient states she was previously told she had "gallbladder sludge" and was referred to a general surgeon but never followed up. The patient denies any CP or SOB. She states she has a hx of DM and takes humulin 30 units at night and 15 units with each meal. She states she has not taken her insulin since yesterday and has not checked her blood glucose either. The patient also has a hx of lupus and [place] last year where she had cardiac stent placed. Pt refused IV, IV fluids, and EKG. on examination pt has mild RUQ pain, otherwise normal. US abd with no acute process, gallbladder is normal. Labs WNL except glucose is 358. UA shows no evidence of ketones. Ordered a point of care glucose and was informed that patient eloped from the emergency department after receiving zofran and toradol and prior to results of all diagnostic tests. Critical care attestation.: If time is entered above; I have spent that time in minutes in the direct care of this critically ill patient, excluding procedure time. ED Disposition Clinical Impression: Nausea vomiting and diarrhea, IDDM (insulin dependent diabetes mellitus), Hyperglycemia Abdominal pain Qualifiers: Abdominal location: right upper quadrant Qualified Code(s): R10.11 - Right upper quadrant pain Disposition: Z-07 ELOPED Is pt being admited?: No Does the pt Need Aspirin: No Condition: Stable Instructions: Abdominal Pain (ED), Diabetes Mellitus Type 2 in Adults (ED), Acute Nausea and Vomiting (ED) Referrals: RAMÓN WILSON [Other] - 2-3 Days Time of Disposition: 22:01 Print Language: OCCITAN
--- NOTE | 2018-07-11 20:53 | Ultrasound Report ---
PROCEDURE: US ABDOMEN LIMITED HISTORY: RUQ pain FINDINGS: Real-time ultrasound of the right upper quadrant was performed and demonstrates no evidence of gallstones or cholecystitis. The common duct measures 0.36 cm which is within normal limits. Abdominal aorta measures 2.4 cm which is normal. The right kidney measures 10.2 x 5.4 x 5.7 cm. There is no evidence of hydronephrosis. IMPRESSION: No evidence of gallstones or cholecystitis This document is electronically signed by Low Regalado MD., July 11 2018 08:51:41 PM ET
== END 2018-07-12 04:45 | disposition left against medical advice (07) ==
LOC: ED 15:45
DX: R11.2 Nausea with vomiting, unspecified (principal); R19.7 Diarrhea, unspecified; R10.11 Right upper quadrant pain; E11.65 Type 2 diabetes mellitus with hyperglycemia; F17.200 Nicotine dependence, unspecified, uncomplicated; F12.10 Cannabis abuse, uncomplicated
CPT/HCPCS: 36415; 76705; 80053; 81001; 83690; 84703; 85025; 96374; 96375; 99284; J1885; J2405

== ENCOUNTER 2018-07-30 09:42 | Emergency (ER) | payer MEDICARE ==
--- NOTE | 2018-07-30 12:18 | Emergency Department Report ---
ED Upper Extremity Inj HPI - General Chief Complaint: Extremity Problem,Nontraumatic Stated Complaint: L ARM AC PAIN/SWELLING AFTER IV THERAPY Time Seen by Provider: 07/30/18 11:24 Source: patient Mode of arrival: Ambulatory Limitations: No Limitations - History of Present Illness Initial Comments: This is a 38-year-old female nontoxic, well nourished in appearance, no acute signs of distress presents to the ED with c/o of left arm redness with swelling to upper arm. Patient stated that she had an IV infusion of Humira and antibiotics and stated that IV has been infiltrated and then swelling and redness has occurred. Patient denies any fever, chills, nausea, vomiting, chest pain, shortness of breath, headache or stiff neck. Patient denies decreased range of motion. Denies any numbness or tingling. Denies any trauma. MD Complaint: Injury to:: left, arm -: days(s) (1) Other Extremity Injury: Arm: Left Other Injuries: none Severity scale (0 -10): 3 Improves With: immobilization Worsens With: movement of extremity Associated Symptoms: denies other symptoms. denies: weakness, numbness, neck pain, suspects foreign body, nausea/vomiting, heard/felt popping sensat - Related Data Home Medications Medication Instructions Recorded Confirmed Last Taken Lisinopril 20 mg PO DAILY 10/08/17 11/26/17 11/20/17 10:00 Zolpidem [Ambien] 10 mg PO QHS 11/26/17 11/26/17 Unknown Detemir (Nf) [Levemir (Nf)] 60 units SUB-Q HS 11/27/17 11/26/17 Unknown Previous Rx's Medication Instructions Recorded Last Taken Type Aspirin [Aspirin BABY CHEW TAB] 81 mg PO QDAY #30 tab.chew 06/12/17 11/20/17 10:00 Rx Clopidogrel [Plavix] 75 mg PO QDAY #30 tablet 06/12/17 11/20/17 10:00 Rx Insulin Regular, Human [HumuLIN R] 15 unit SQ AC #600 units 10/14/17 11/20/17 18:00 Rx Hydroxychloroquine [Plaquenil] 200 mg PO QDAY tablet 11/28/17 Unknown Rx Lispro Insulin [Humalog] 0 unit SUB-Q ACHS units 11/28/17 Unknown Rx predniSONE [Deltasone] 20 mg PO BID tablet 11/28/17 Unknown Rx Acetaminophen/Codeine [Tylenol 1 tab PO Q6H PRN #12 tab 07/30/18 Unknown Rx /Codeine # 3 tab] Allergies Allergy/AdvReac Type Severity Reaction Status Date / Time egg Allergy Hives Verified 12/07/17 12:03 tramadol HCl [From Ultram] Allergy Hives Verified 12/07/17 12:03 vancomycin Allergy Hives Verified 12/07/17 12:03 ED Review of Systems ROS: Stated complaint: L ARM AC PAIN/SWELLING AFTER IV THERAPY Other details as noted in HPI Constitutional: denies: chills, fever Eyes: denies: eye pain, eye discharge, vision change ENT: denies: ear pain, throat pain Respiratory: denies: cough, shortness of breath, wheezing Cardiovascular: denies: chest pain, palpitations Endocrine: no symptoms reported Gastrointestinal: denies: abdominal pain, nausea, diarrhea Genitourinary: denies: urgency, dysuria, discharge Musculoskeletal: denies: back pain, joint swelling, arthralgia Skin: denies: rash, lesions Neurological: denies: headache, weakness, paresthesias Psychiatric: denies: anxiety, depression Hematological/Lymphatic: denies: easy bleeding, easy bruising ED Past Medical Hx - Past Medical History Previous Medical History?: Yes Hx Hypertension: Yes Hx CVA: No Hx Heart Attack/AMI: Yes (05/22, cardiac stent x1) Hx Congestive Heart Failure: No Hx Diabetes: Yes Hx Deep Vein Thrombosis: No Hx Pulmonary Embolism: No Hx GERD: No Hx Liver Disease: No Hx Renal Disease: No Hx Sickle Cell Disease: No Hx Arthritis: No Hx Headaches / Migraines: No Hx Seizures: No Hx Kidney Stones: No 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 for abscess - Social History Smoking Status: Current Every Day Smoker Substance Use Type: Marijuana - Medications Home Medications: Home Medications Medication Instructions Recorded Confirmed Last Taken Type Aspirin [Aspirin BABY CHEW TAB] 81 mg PO QDAY #30 tab.chew 06/12/17 11/26/17 11/20/17 10:00 Rx Clopidogrel [Plavix] 75 mg PO QDAY #30 tablet 06/12/17 11/26/17 11/20/17 10:00 Rx Lisinopril 20 mg PO DAILY 10/08/17 11/26/17 11/20/17 10:00 History Insulin Regular, Human [HumuLIN R] 15 unit SQ AC #600 units 10/14/17 11/26/17 11/20/17 18:00 Rx Zolpidem [Ambien] 10 mg PO QHS 11/26/17 11/26/17 Unknown History Detemir (Nf) [Levemir (Nf)] 60 units SUB-Q HS 11/27/17 11/26/17 Unknown History Hydroxychloroquine [Plaquenil] 200 mg PO QDAY tablet 11/28/17 Unknown Rx Lispro Insulin [Humalog] 0 unit SUB-Q ACHS units 11/28/17 Unknown Rx predniSONE [Deltasone] 20 mg PO BID tablet 11/28/17 Unknown Rx Acetaminophen/Codeine [Tylenol 1 tab PO Q6H PRN #12 tab 07/30/18 Unknown Rx /Codeine # 3 tab] ED Physical Exam - General Limitations: No Limitations General appearance: alert, in no apparent distress - Head Head exam: Present: atraumatic, normocephalic - Neck Neck exam: Present: normal inspection, full ROM - Extremities Exam Extremities exam: Present: normal inspection, full ROM, tenderness, normal capillary refill. Absent: joint swelling - Expanded Upper Extremity Exam Left General: Present: normal inspection Shoulder Exam: Present: normal inspection, full ROM. Absent: tenderness, swelling Upper Arm exam: Present: normal inspection, full ROM. Absent: tenderness, swelling Elbow exam: Present: normal inspection, full ROM. Absent: tenderness, swelling Forearm Wrist exam: Present: normal inspection, full ROM, tenderness, swelling, erythema. Absent: abrasion, laceration, ecchymosis, deformity, crepidus, dislocation, tenderness over anatomical snuff box, pain with axial thumb loading Hand Wrist exam: Present: normal inspection, full ROM. Absent: tenderness, swelling Vascular: Present: vascular compromise, normal capillary refill - Back Exam Back exam: Present: normal inspection, full ROM - Neurological Exam Neurological exam: Present: alert, oriented X3 - Psychiatric Psychiatric exam: Present: normal affect, normal mood - Skin Skin exam: Present: warm, dry, intact, normal color. Absent: rash ED Course Vital Signs 07/30/18 07/30/18 09:48 13:39 Temperature 98.1 F Pulse Rate 102 H Respiratory 20 18 Rate Blood Pressure 127/85 O2 Sat by Pulse 99 Oximetry - Reevaluation(s) Reevaluation #1: 07/30/18 12:30 Patient is speaking in full sentences with no signs of distress noted. - Consultations Consultation #1: 07/30/18 12:30 Patient has been consulted with Dr. Walker about patient history, physical exam, and patient and agrees to ED plan of care. ED Medical Decision Making - Lab Data Result diagrams: 07/30/18 12:20 07/30/18 12:20 - Medical Decision Making This is a 38-year-old female that presents with left arm IV infiltrated. Patient is stable and was examined by me. I did discuss patient with Dr. Walker which she agrees to be the products care. Labs obtained. There is no signs of DVT. CT with contrast obtained and dictated by the radiologist with impression of small amount of subcutaneous straining, however no focal fluid col lection is seen. Patient is notified of the CT results with no questions noted by the patient. Patient was instructed to apply warm compresses. Patient was referred to Follow-up with a primary care doctor in 3-5 days or if symptoms worsen and continue return to emergency room as soon as possible. At time of discharge, the patient does not seem toxic or ill in appearance. No acute signs of distress noted. Patient agrees to discharge treatment plan of care. No further questions noted by the patient. - Differential Diagnosis DVT, IV infiltration, skin necrosis Critical care attestation.: If time is entered above; I have spent that time in minutes in the direct care of this critically ill patient, excluding procedure time. ED Disposition Clinical Impression: IV infiltration Qualifiers: Encounter type: initial encounter Qualified Code(s): T80.1XXA - Vascular complications following infusion, transfusion and therapeutic injection, initial encounter Disposition: DC-01 TO HOME OR SELFCARE Is pt being admited?: No Does the pt Need Aspirin: No Condition: Stable Additional Instructions: Follow-up with a primary care doctor in 3-5 days or if symptoms worsen and continue return to emergency room as soon as possible. Apply warm compresses to the area as instructed emergency room. Do not operate any machinery while taking Tylenol with codeine as this may cause drowsiness. Prescriptions: Acetaminophen/Codeine [Tylenol /Codeine # 3 tab] 1 tab PO Q6H PRN #12 tab PRN Reason: Pain , Severe (7-10) [facility]-5 Days PRIMARY CAREMD [Referring] - 3-5 Days JOHANNY LEE MD [Staff Physician] - 3-5 Days [facility] [Outside] - 3-5 Days [facility] [Outside] - 3-5 Days Forms: Work/School Release Form(ED)
[2018-07-30] MEDS ORDERED: DILAUDID IV ONE (12:57)
[2018-07-30 13:03] LABS: Eosinophils % (Auto) 0.5 % (0.0-4.3); Monocytes % (Auto) 5.1 % (0.0-7.3)
[2018-07-30 13:58] LABS: Basophils % (Auto) 0.7 % (0.0-1.8); Hematocrit 33.6 % (30.3-42.9); Hemoglobin 11.1 gm/dl (10.1-14.3); Lymphocytes # (Auto) 2.9 K/mm3 (1.2-5.4); Lymphocytes % (Auto) 24.8 % (13.4-35.0); Mean Corpuscular HGB Conc 33 % (30-34); Mean Corpuscular Volume 73 fl (79-97); Monocytes # (Auto) 0.6 K/mm3 (0.0-0.8); Platelet Count 195 K/mm3 (140-440); Red Blood Count 4.58 M/mm3 (3.65-5.03); Red Cell Distribution Width 17.9 % (13.2-15.2)
[2018-07-30 13:59] LABS: Basophils # (Auto) 0.1 K/mm3 (0.0-0.1); Eosinophils # (Auto) 0.1 K/mm3 (0.0-0.4)
[2018-07-30 14:39] LABS: BUN/Creatinine Ratio 8; Blood Urea Nitrogen 5 mg/dL (7-17); Calcium 9.1 mg/dL (8.4-10.2); Hemolysis Index 28
[2018-07-30] MEDS ORDERED: NACL 0.9% 1000 ML 1,000 ML IV ONE (14:45)
--- NOTE | 2018-07-30 16:42 | Cat Scan Report ---
PROCEDURE: CT UPPER EXTREM LT W CON TECHNIQUE: Computerized axial tomography of the LEFT upper extremity was performed after the IV inj ection of iodinated nonionic contrast. CT DOSE LENGTH PRODUCT: 1266.6 mGycm HISTORY: left arm redness with swelling COMPARISONS: None . FINDINGS: There is a small amount of subcutaneous air present. There is mild stranding in the anterior subcutan eous tissues. No soft tissue fluid collection is seen. No osseous abnormality is identified. IMPRESSION: There is a small amount of subcutaneous stranding. However no focal fluid collection is seen This document is electronically signed by Marcela Hong MD., July 30 2018 04:39:50 PM ET
[2018-07-30 17:13] VITALS: BP 112/78
== END 2018-07-30 17:43 | disposition home or self-care (01) ==
LOC: ED 09:42
DX: T80.1XXA Vascular complications following infusion, transfusion and therapeutic injection, initial encounter (principal); I10 Essential (primary) hypertension; E11.9 Type 2 diabetes mellitus without complications; M32.9 Systemic lupus erythematosus, unspecified; F17.200 Nicotine dependence, unspecified, uncomplicated; F12.10 Cannabis abuse, uncomplicated; Z95.1 Presence of aortocoronary bypass graft; Z79.82 Long term (current) use of aspirin; Z79.4 Long term (current) use of insulin; Z88.1 Allergy status to other antibiotic agents; Z88.5 Allergy status to narcotic agent; Z91.012 Allergy to eggs
CPT/HCPCS: 36415; 73201; 80048; 85025; 96374; 99283; J1170; J7030; Q9967

== ENCOUNTER 2018-08-21 18:05 | Emergency (ER) | payer MEDICARE | END 2018-08-21 19:05 | disposition left against medical advice (07) | LOC: ED 18:05 | DX: N94.89 Other specified conditions associated with female genital organs and menstrual cycle (principal); R11.10 Vomiting, unspecified; Z53.21 Procedure and treatment not carried out due to patient leaving prior to being seen by health care provider ==

== ENCOUNTER 2018-08-25 17:36 | Emergency (ER) | payer MEDICARE ==
--- NOTE | 2018-08-25 17:59 | Emergency Department Report ---
Blank Doc - Documentation Documentation: pt presents for dizziness states she checked her blood glucose at home and states it just read "high" pt states she takes levemir and novalog for her DM, states she took them today PMHx Lupus, hiradenitis, OK, anemia +smoker non drinker +marijuana denies any other drug use
[2018-08-25 20:41] LABS: Basophils % (Auto) 0.5 % (0.0-1.8); Eosinophils # (Auto) 0.1 K/mm3 (0.0-0.4); Eosinophils % (Auto) 1.2 % (0.0-4.3); Hematocrit 30.7 % (30.3-42.9); Hemoglobin 9.8 gm/dl (10.1-14.3); Lymphocytes # (Auto) 2.5 K/mm3 (1.2-5.4); Lymphocytes % (Auto) 34.9 % (13.4-35.0); Mean Corpuscular HGB Conc 32 % (30-34); Mean Corpuscular Volume 74 fl (79-97); Monocytes # (Auto) 0.4 K/mm3 (0.0-0.8); Monocytes % (Auto) 6.1 % (0.0-7.3); Platelet Count 359 K/mm3 (140-440); Red Blood Count 4.18 M/mm3 (3.65-5.03); Red Cell Distribution Width 17.2 % (13.2-15.2)
[2018-08-25 20:53] LABS: BUN/Creatinine Ratio 9; Blood Urea Nitrogen 7 mg/dL (7-17); Calcium 8.6 mg/dL (8.4-10.2); Hemolysis Index 0
[2018-08-25] MEDS ORDERED: NACL 0.9% 1000 ML 1,000 ML IV ONE ×2 (22:17→22:18)
[2018-08-25] MEDS ORDERED: ZOFRAN IV ONE (22:17)
[2018-08-25] MEDS ORDERED: DECADRON IV ONE (22:18)
[2018-08-25] MEDS ORDERED: MORPHINE IV ONE (22:18)
[2018-08-25] MEDS ORDERED: HumuLIN R IV ONE (22:18)
[2018-08-25] MEDS ORDERED: PEPCID IV ONE (22:18)
[2018-08-26] MEDS ORDERED: VALIUM PO ONE (00:01)
[2018-08-26 00:19] LABS: Bilirubin,Urine NEG (Negative); Blood,Urine NEG (Negative); Color,Urine Straw (Yellow); Protein,Urine <15 mg/dL mg/dL (Negative); Urobilinogen,Urine < 2.0 mg/dL (<2.0); WBC,Urine < 1.0 /HPF (0.0-6.0)
[2018-08-26 00:33] LABS: HCG Qualitative,Urine Negative (Negative)
[2018-08-26] MEDS ORDERED: MORPHINE IV ONE (00:46)
--- NOTE | 2018-08-26 01:15 | Emergency Department Report ---
ED General Adult HPI - General Chief complaint: Hyperglycemia Stated complaint: /LUPUS FLARE Time Seen by Provider: 08/25/18 17:56 Source: patient Mode of arrival: Ambulatory Limitations: No Limitations - History of Present Illness Initial comments: Patient is a 38-year-old female with past history of insulin- dependent diabetes hypertension bipolar disorder and lupus who is complaining of generalized body aches for the last 2-3 days. Patient also been noncompliant with her insulin and has noted elevated blood sugar levels at home. Patient denies any nausea vomiting fevers chills cough cold and congestion at this time. Patient also denies any dysuria vaginal discharge or abdominal pain. Patient is having some pain in her joints specifically her knees lower back and arms. She states this is consistent with her lupus when she is having a flareup. Patient is on chronic prednisone therapy at home. Patient denies any joint sw elling or redness. Severity scale (0 -10): 8 - Related Data Home Medications Medication Instructions Recorded Confirmed Last Taken Lisinopril 20 mg PO DAILY 10/08/17 11/26/17 11/20/17 10:00 Zolpidem [Ambien] 10 mg PO QHS 11/26/17 11/26/17 Unknown Detemir (Nf) [Levemir (Nf)] 60 units SUB-Q HS 11/27/17 11/26/17 Unknown Previous Rx's Medication Instructions Recorded Last Taken Type Aspirin [Aspirin BABY CHEW TAB] 81 mg PO QDAY #30 tab.chew 06/12/17 11/20/17 10:00 Rx Clopidogrel [Plavix] 75 mg PO QDAY #30 tablet 06/12/17 11/20/17 10:00 Rx Insulin Regular, Human [HumuLIN R] 15 unit SQ AC #600 units 10/14/17 11/20/17 18:00 Rx Hydroxychloroquine [Plaquenil] 200 mg PO QDAY tablet 11/28/17 Unknown Rx Lispro Insulin [HumaLOG] 0 unit SUB-Q ACHS units 11/28/17 Unknown Rx predniSONE [Deltasone] 20 mg PO BID tablet 11/28/17 Unknown Rx Acetaminophen/Codeine [Tylenol 1 tab PO Q6H PRN #12 tab 07/30/18 Unknown Rx /Codeine # 3 tab] HYDROcodone/APAP 5-325 [Cascade 1 each PO Q6HR PRN #10 tablet 08/26/18 Unknown Rx 5/325] Ibuprofen [Motrin 600 MG tab] 600 mg PO Q8H PRN #20 tablet 08/26/18 Unknown Rx Allergies Allergy/AdvReac Type Severity Reaction Status Date / Time egg Allergy Hives Verified 08/25/18 17:38 tramadol HCl [From Ultram] Allergy Hives Verified 08/25/18 17:38 vancomycin Allergy Hives Verified 08/25/18 17:38 ED Review of Systems ROS: Stated complaint: /LUPUS FLARE Other details as noted in HPI Comment: All other systems reviewed and negative ED Past Medical Hx - Past Medical History Hx Hypertension: Yes Hx CVA: No Hx Heart Attack/AMI: Yes (05/22, cardiac stent x1) Hx Congestive Heart Failure: No Hx Diabetes: Yes Hx Deep Vein Thrombosis: No Hx Pulmonary Embolism: No Hx GERD: No Hx Liver Disease: No Hx Renal Disease: No Hx Sickle Cell Disease: No Hx Arthritis: No Hx Headaches / Migraines: No Hx Seizures: No Hx Kidney Stones: No Hx 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 for abscess - Social History Smoking Status: Current Every Day Smoker Substance Use Type: Marijuana - Medications Home Medications: Home Medications Medication Instructions Recorded Confirmed Last Taken Type Aspirin [Aspirin BABY CHEW TAB] 81 mg PO QDAY #30 tab.chew 06/12/17 11/26/17 11/20/17 10:00 Rx Clopidogrel [Plavix] 75 mg PO QDAY #30 tablet 06/12/17 11/26/17 11/20/17 10:00 Rx Lisinopril 20 mg PO DAILY 10/08/17 11/26/17 11/20/17 10:00 History Insulin Regular, Human [HumuLIN R] 15 unit SQ AC #600 units 10/14/17 11/26/17 11/20/17 18:00 Rx Zolpidem [Ambien] 10 mg PO QHS 11/26/17 11/26/17 Unknown History Detemir (Nf) [Levemir (Nf)] 60 units SUB-Q HS 11/27/17 11/26/17 Unknown History Hydroxychloroquine [Plaquenil] 200 mg PO QDAY tablet 11/28/17 Unknown Rx Lispro Insulin [HumaLOG] 0 unit SUB-Q ACHS units 11/28/17 Unknown Rx predniSONE [Deltasone] 20 mg PO BID tablet 11/28/17 Unknown Rx Acetaminophen/Codeine [Tylenol 1 tab PO Q6H PRN #12 tab 07/30/18 Unknown Rx /Codeine # 3 tab] HYDROcodone/APAP 5-325 [Cascade 1 each PO Q6HR PRN #10 tablet 08/26/18 Unknown Rx 5/325] Ibuprofen [Motrin 600 MG tab] 600 mg PO Q8H PRN #20 tablet 08/26/18 Unknown Rx ED Physical Exam - General Limitations: No Limitations General appearance: alert, in no apparent distress - Head Head exam: Present: atraumatic, normocephalic - Eye Eye exam: Present: normal appearance - ENT ENT exam: Present: mucous membranes moist - Neck Neck exam: Present: normal inspection - Respiratory Respiratory exam: Present: normal lung sounds bilaterally. Absent: respiratory distress, wheezes, rales, rhonchi - Cardiovascular Cardiovascular Exam: Present: regular rate, normal rhythm. Absent: systolic murmur, diastolic murmur, rubs, gallop - GI/Abdominal GI/Abdominal exam: Present: soft, normal bowel sounds. Absent: distended, tenderness, guarding, rebound - Extremities Exam Extremities exam: Present: normal inspection - Back Exam Back exam: Present: normal inspection - Neurological Exam Neurological exam: Present: alert, oriented X3 - Psychiatric Psychiatric exam: Present: normal affect, normal mood - Skin Skin exam: Present: warm, dry, intact, normal color. Absent: rash ED Course Vital Signs 08/25/18 17:56 Temperature 98 F Pulse Rate 101 H Respiratory 16 Rate Blood Pressure 134/75 [Left] O2 Sat by Pulse 99 Oximetry ED Medical Decision Making - Lab Data Result diagrams: 08/25/18 20:24 08/25/18 20:24 Lab Results 08/25/18 08/25/18 08/25/18 Range/Units 17:49 20:24 20:24 WBC 7.3 (4.5-11.0) K/mm3 RBC 4.18 (3.65-5.03) M/mm3 Hgb 9.8 L (10.1-14.3) gm/dl Hct 30.7 (30.3-42.9) % MCV 74 L (79-97) fl MCH 23 L (28-32) pg MCHC 32 (30-34) % RDW 17.2 H (13.2-15.2) % Plt Count 359 (140-440) K/mm3 Lymph % (Auto) 34.9 (13.4-35.0) % [place] % (Auto) 6.1 (0.0-7.3) % Eos % (Auto) 1.2 (0.0-4.3) % Baso % (Auto) 0.5 (0.0-1.8) % Lymph # 2.5 (1.2-5.4) K/mm3 [place] # 0.4 (0.0-0.8) K/mm3 Eos # 0.1 (0.0-0.4) K/mm3 Baso # 0.0 (0.0-0.1) K/mm3 Seg Neutrophils % 57.3 (40.0-70.0) % Seg Neutrophils # 4.2 (1.8-7.7) K/mm3 Sodium 134 L (137-145) mmol/L Potassium 4.0 (3.6-5.0) mmol/L Chloride 99.1 (98-107) mmol/L Carbon Dioxide 21 L (22-30) mmol/L Anion Gap 18 mmol/L BUN 7 (7-17) mg/dL Creatinine 0.8 (0.7-1.2) mg/dL Estimated GFR > 60 ml/min BUN/Creatinine Ratio 9 % Glucose 517 H* (65-100) mg/dL POC Glucose 370 H (70-105) Calcium 8.6 (8.4-10.2) mg/dL Urine Color (Yellow) Urine Turbidity (Clear) Urine pH (5.0-7.0) Ur Specific [place] (1.003-1.030) Urine Protein (Negative) mg/dL Urine Glucose (UA) (Negative) mg/dL Urine Ketones (Negative) mg/dL Urine Blood (Negative) Urine Nitrite (Negative) Urine Bilirubin (Negative) Urine Urobilinogen (<2.0) mg/dL Ur Leukocyte Esterase (Negative) Urine WBC (Auto) (0.0-6.0) /HPF Urine RBC (Auto) (0.0-6.0) /HPF U Epithel Cells (Auto) (0-13.0) /HPF Urine HCG, Qual (Negative) 08/25/18 08/26/18 Range/Units 23:06 00:03 WBC (4.5-11.0) K/mm3 RBC (3.65-5.03) M/mm3 Hgb (10.1-14.3) gm/dl Hct (30.3-42.9) % MCV (79-97) fl MCH (28-32) pg MCHC (30-34) % RDW (13.2-15.2) % Plt Count (140-440) K/mm3 Lymph % (Auto) (13.4-35.0) % [place] % (Auto) (0.0-7.3) % Eos % (Auto) (0.0-4.3) % Baso % (Auto) (0.0-1.8) % Lymph # (1.2-5.4) K/mm3 [place] # (0.0-0.8) K/mm3 Eos # (0.0-0.4) K/mm3 Baso # (0.0-0.1) K/mm3 Seg Neutrophils % (40.0-70.0) % Seg Neutrophils # (1.8-7.7) K/mm3 Sodium (137-145) mmol/L Potassium (3.6-5.0) mmol/L Chloride (98-107) mmol/L Carbon Dioxide (22-30) mmol/L Anion Gap mmol/L BUN (7-17) mg/dL Creatinine (0.7-1.2) mg/dL Estimated GFR ml/min BUN/Creatinine Ratio % Glucose (65-100) mg/dL POC Glucose 291 H (70-105) Calcium (8.4-10.2) mg/dL Urine Color Straw (Yellow) Urine Turbidity Clear (Clear) Urine pH 7.0 (5.0-7.0) Ur Specific [place] 1.012 (1.003-1.030) Urine Protein <15 mg/dl (Negative) mg/dL Urine Glucose (UA) >=500 (Negative) mg/dL Urine Ketones Neg (Negative) mg/dL Urine Blood Neg (Negative) Urine Nitrite Neg (Negative) Urine Bilirubin Neg (Negative) Urine Urobilinogen < 2.0 (<2.0) mg/dL Ur Leukocyte Esterase Neg (Negative) Urine WBC (Auto) < 1.0 (0.0-6.0) /HPF Urine RBC (Auto) 1.0 (0.0-6.0) /HPF U Epithel Cells (Auto) 3.0 (0-13.0) /HPF Urine HCG, Qual Negative (Negative) - Medical Decision Making Patient's showed elevated blood glucose however she did not appear to be in DKA at this time. Patient no ketones in her urine and her serum bicarbonate was not supporting a DKA diagnosis. The patient was hydrated with 2 L of normal saline her blood glucose did decrease significantly. Patient's pain was treated patient will be discharged home in stable condition. Critical care attestation.: If time is entered above; I have spent that time in minutes in the direct care of this critically ill patient, excluding procedure time. ED Disposition Clinical Impression: Hyperglycemia, Dehydration Arthralgia Qualifiers: Joint pain location: unspecified Qualified Code(s): M25.50 - Pain in un specified joint Disposition: DC-01 TO HOME OR SELFCARE Is pt being admited?: No Does the pt Need Aspirin: No Condition: Stable Referrals: GUILLERMO ANTHONY MD [Primary Care Provider] - 3-5 Days Time of Disposition: 01:15
[2018-08-26] MEDS ORDERED: VALIUM ONE (02:06)
[2018-08-26 02:15] VITALS: BP 132/69
== END 2018-08-26 02:21 | disposition home or self-care (01) ==
LOC: ED 17:36
DX: E11.65 Type 2 diabetes mellitus with hyperglycemia (principal); E86.0 Dehydration; M25.50 Pain in unspecified joint; I10 Essential (primary) hypertension; F31.9 Bipolar disorder, unspecified; F20.89 Other schizophrenia; F25.9 Schizoaffective disorder, unspecified; Z95.5 Presence of coronary angioplasty implant and graft; F17.200 Nicotine dependence, unspecified, uncomplicated; F12.10 Cannabis abuse, uncomplicated; Z79.899 Other long term (current) drug therapy; Z88.6 Allergy status to analgesic agent; Z88.1 Allergy status to other antibiotic agents; Z91.012 Allergy to eggs
CPT/HCPCS: 36415; 80048; 82962; 85025; 96361; 96374; 96375; 96376; 99284; J1100; J2270; J2405; J7030; 81001; 81025

== ENCOUNTER 2018-08-27 00:13 | Emergency (ER) | payer MEDICARE ==
[2018-08-27 01:25] VITALS: BP 149/100
== END 2018-08-27 03:36 | disposition left against medical advice (07) ==
LOC: ED 00:13
DX: N93.9 Abnormal uterine and vaginal bleeding, unspecified (principal); Z53.21 Procedure and treatment not carried out due to patient leaving prior to being seen by health care provider

== ENCOUNTER 2018-08-27 09:13 | Emergency (ER) | payer MEDICARE ==
--- NOTE | 2018-08-27 11:53 | Emergency Department Report ---
ED Female HPI - General Chief complaint: Urogenital-Female Stated complaint: OVARIAN CYST PAIN/VAGINAL SPOTTING/VOMITTING Time Seen by Provider: 08/27/18 10:59 Source: patient Mode of arrival: Ambulatory Limitations: No Limitations - History of Present Illness Initial comments: 38-year-old female with a history of ovarian cyst procedure complaining of right-sided pelvic pain with dysuria She denies vaginal bleeding, fever, nausea MD Complaint: pelvic pain Location: RLQ Worsens with: none - Related Data Home Medications Medication Instructions Recorded Confirmed Last Taken Lisinopril 20 mg PO DAILY 10/08/17 11/26/17 11/20/17 10:00 Zolpidem [Ambien] 10 mg PO QHS 11/26/17 11/26/17 Unknown Detemir (Nf) [Levemir (Nf)] 60 units SUB-Q HS 11/27/17 11/26/17 Unknown Previous Rx's Medication Instructions Recorded Last Taken Type Aspirin [Aspirin BABY CHEW TAB] 81 mg PO QDAY #30 tab.chew 06/12/17 11/20/17 10:00 Rx Clopidogrel [Plavix] 75 mg PO QDAY #30 tablet 06/12/17 11/20/17 10:00 Rx Insulin Regular, Human [HumuLIN R] 15 unit SQ AC #600 units 10/14/17 11/20/17 18:00 Rx Hydroxychloroquine [Plaquenil] 200 mg PO QDAY tablet 11/28/17 Unknown Rx Lispro Insulin [HumaLOG] 0 unit SUB-Q ACHS units 11/28/17 Unknown Rx predniSONE [Deltasone] 20 mg PO BID tablet 11/28/17 Unknown Rx Acetaminophen/Codeine [Tylenol 1 tab PO Q6H PRN #12 tab 07/30/18 Unknown Rx /Codeine # 3 tab] HYDROcodone/APAP 5-325 [[place] 1 each PO Q6HR PRN #10 tablet 08/26/18 Unknown Rx 5/325] Ibuprofen [Motrin 600 MG tab] 600 mg PO Q8H PRN #20 tablet 08/26/18 Unknown Rx Ibuprofen [Motrin 800 MG tab] 800 mg PO TID #30 tablet 08/27/18 Unknown Rx Nitrofurantoin [place]/M-Cryst 100 mg PO Q12HR #14 capsule 08/27/18 Unknown Rx [Macrobid CAP] Dicyclomine [Bentyl] 10 mg PO BID #20 capsule 09/01/18 Unknown Rx Ondansetron [Zofran ODT TAB] 8 mg PO Q12HR #20 tab.rapdis 09/01/18 Unknown Rx Sulfamethoxazole/Trimethoprim 1 each PO BID 7 Days #14 tablet 09/08/18 Unknown Rx [Bactrim DS TAB] Allergies Allergy/AdvReac Type Severity Reaction Status Date / Time egg Allergy Hives Verified 08/31/18 17:56 tramadol HCl [From Ultram] Allergy Hives Verified 08/31/18 17:56 vancomycin Allergy Hives Verified 08/31/18 17:56 ED Review of Systems ROS: Stated complaint: OVARIAN CYST PAIN/VAGINAL SPOTTING/VOMITTING Other details as noted in HPI Constitutional: denies: chills, fever Eyes: denies: eye pain, eye discharge, vision change ENT: denies: ear pain, throat pain Respiratory: denies: cough, shortness of breath, wheezing Cardiovascular: denies: chest pain, palpitations Endocrine: no symptoms reported Gastrointestinal: denies: abdominal pain, nausea, diarrhea Genitourinary: denies: urgency, dysuria, discharge Musculoskeletal: denies: back pain, joint swelling, arthralgia Skin: denies: rash, lesions Neurological: denies: headache, weakness, paresthesias Psychiatric: denies: anxiety, depression Hematological/Lymphatic: denies: easy bleeding, easy bruising ED Past Medical Hx - Past Medical History Previous Medical History?: Yes Hx Hypertension: Yes Hx CVA: No Hx Heart Attack/AMI: Yes (05/22, cardiac stent x1) Hx Congestive Heart Failure: No Hx Diabetes: Yes Hx Deep Vein Thrombosis: No Hx Pulmonary Embolism: No Hx GERD: No Hx Liver Disease: No Hx Renal Disease: No Hx Sickle Cell Disease: No Hx Arthritis: No Hx Headaches / Migraines: No Hx Seizures: No Hx Kidney Stones: No Hx 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 for abscess - Social History Smoking Status: Current Every Day Smoker Substance Use Type: Marijuana - Medications Home Medications: Home Medications Medication Instructions Recorded Confirmed Last Taken Type Aspirin [Aspirin BABY CHEW TAB] 81 mg PO QDAY #30 tab.chew 06/12/17 11/26/17 11/20/17 10:00 Rx Clopidogrel [Plavix] 75 mg PO QDAY #30 tablet 06/12/17 11/26/17 11/20/17 10:00 Rx Lisinopril 20 mg PO DAILY 10/08/17 11/26/17 11/20/17 10:00 History Insulin Regular, Human [HumuLIN R] 15 unit SQ AC #600 units 10/14/17 11/26/17 11/20/17 18:00 Rx Zolpidem [Ambien] 10 mg PO QHS 11/26/17 11/26/17 Unknown History Detemir (Nf) [Levemir (Nf)] 60 units SUB-Q HS 11/27/17 11/26/17 Unknown History Hydroxychloroquine [Plaquenil] 200 mg PO QDAY tablet 11/28/17 Unknown Rx Lispro Insulin [HumaLOG] 0 unit SUB-Q ACHS units 11/28/17 Unknown Rx predniSONE [Deltasone] 20 mg PO BID tablet 11/28/17 Unknown Rx Acetaminophen/Codeine [Tylenol 1 tab PO Q6H PRN #12 tab 07/30/18 Unknown Rx /Codeine # 3 tab] HYDROcodone/APAP 5-325 [[place] 1 each PO Q6HR PRN #10 tablet 08/26/18 Unknown Rx 5/325] Ibuprofen [Motrin 600 MG tab] 600 mg PO Q8H PRN #20 tablet 08/26/18 Unknown Rx Ibuprofen [Motrin 800 MG tab] 800 mg PO TID #30 tablet 08/27/18 Unknown Rx Nitrofurantoin [place]/M-Cryst 100 mg PO Q12HR #14 capsule 08/27/18 Unknown Rx [Macrobid CAP] Dicyclomine [Bentyl] 10 mg PO BID #20 capsule 09/01/18 Unknown Rx Ondansetron [Zofran ODT TAB] 8 mg PO Q12HR #20 tab.rapdis 09/01/18 Unknown Rx Sulfamethoxazole/Trimethoprim 1 each PO BID 7 Days #14 tablet 09/08/18 Unknown Rx [Bactrim DS TAB] ED Physical Exam - General Limitations: No Limitations General appearance: alert, in no apparent distress - Head Head exam: Present: atraumatic, normocephalic - Eye Eye exam: Present: normal appearance - ENT ENT exam: Present: mucous membranes moist - Neck Neck exam: Present: normal inspection - Respiratory Respiratory exam: Present: normal lung sounds bilaterally. Absent: respiratory distress - Cardiovascular Cardiovascular Exam: Present: regular rate, normal rhythm. Absent: systolic murmur, diastolic murmur, rubs, gallop - GI/Abdominal GI/Abdominal exam: Present: soft, normal bowel sounds. Absent: distended, tenderness - Extremities Exam Extremities exam: Present: normal inspection - Back Exam Back exam: Present: normal inspection - Neurological Exam Neurological exam: Present: alert, oriented X3 - Psychiatric Psychiatric exam: Present: normal affect, normal mood - Skin Skin exam: Present: warm, dry, intact, normal color. 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 ED Disposition Clinical Impression: UTI (urinary tract infection) Disposition: DC-01 TO HOME OR SELFCARE Is pt being admited?: No Does the pt Need Aspirin: No Condition: Stable Instructions: Ovarian Cyst (ED), Urinary Tract Infection in Women (ED), Dysuria (ED) Additional Instructions: Make sure to follow up with the primary care physician as discussed. Take all your medications as you've been prescribed. If you have any worsening symptoms or develop new symptoms please return to ED immediately. Prescriptions: Nitrofurantoin [place]/M-Cryst [Macrobid CAP] 100 mg PO Q12HR #14 capsule Ibuprofen [Motrin 800 MG tab] 800 mg PO TID #30 tablet Referrals: RAMÓN WILSON MD [Primary Care Provider] - 3-5 Days [facility] [Outside] - 3-5 Days [facility] [Outside] - 3-5 Days Forms: Work/School Release Form(ED) Time of Disposition: 13:44
[2018-08-27] MEDS ORDERED: IBUPROFEN PO ONE (12:05)
[2018-08-27 12:14] LABS: Bacteria,Urine 1+ /HPF (Negative); Bilirubin,Urine NEG (Negative); Blood,Urine NEG (Negative); Color,Urine Yellow (Yellow); HCG Qualitative,Urine Negative (Negative); Mucus,Urine 1+ /HPF; Protein,Urine <15 mg/dL mg/dL (Negative)
[2018-08-27] MEDS ORDERED: ROCEPHIN IM ONE (13:12)
[2018-08-27] MEDS ORDERED: XYLOCAINE 1% MPF 5 mL INFILTRATI ONE (13:12)
[2018-08-27 14:28] VITALS: BP 152/71
== END 2018-08-27 14:26 | disposition home or self-care (01) ==
LOC: ED 09:13
DX: N39.0 Urinary tract infection, site not specified (principal); I10 Essential (primary) hypertension; I25.2 Old myocardial infarction; E11.9 Type 2 diabetes mellitus without complications; F17.200 Nicotine dependence, unspecified, uncomplicated; F12.90 Cannabis use, unspecified, uncomplicated; Z95.1 Presence of aortocoronary bypass graft; Z79.82 Long term (current) use of aspirin; Z79.4 Long term (current) use of insulin; Z88.6 Allergy status to analgesic agent; Z88.1 Allergy status to other antibiotic agents; Z91.012 Allergy to eggs
CPT/HCPCS: 81001; 81025; 96372; 99283; J0696

== ENCOUNTER 2018-08-31 17:55 | Emergency (ER) | payer MEDICARE ==
[2018-08-31 18:17] VITALS: BP 139/79
[2018-08-31 18:41] LABS: Basophils # (Auto) 0.1 K/mm3 (0.0-0.1); Basophils % (Auto) 1.5 % (0.0-1.8); Eosinophils # (Auto) 0.1 K/mm3 (0.0-0.4); Hematocrit 29.5 % (30.3-42.9); Hemoglobin 9.5 gm/dl (10.1-14.3); Lymphocytes # (Auto) 1.4 K/mm3 (1.2-5.4); Lymphocytes % (Auto) 17.7 % (13.4-35.0); Mean Corpuscular HGB Conc 32 % (30-34); Mean Corpuscular Volume 73 fl (79-97); Monocytes # (Auto) 0.4 K/mm3 (0.0-0.8); Monocytes % (Auto) 4.5 % (0.0-7.3); Platelet Count 263 K/mm3 (140-440); Red Blood Count 4.05 M/mm3 (3.65-5.03); Red Cell Distribution Width 16.9 % (13.2-15.2)
[2018-08-31 18:59] LABS: Alanine Aminotransferase 13 units/L (7-56); Albumin 3.4 g/dL (3.9-5); BUN/Creatinine Ratio 11; Blood Urea Nitrogen 9 mg/dL (7-17); Calcium 8.4 mg/dL (8.4-10.2); Hemolysis Index 3
== END 2018-08-31 18:15 | disposition left against medical advice (07) ==
LOC: ED 17:55
DX: N93.9 Abnormal uterine and vaginal bleeding, unspecified (principal); Z53.21 Procedure and treatment not carried out due to patient leaving prior to being seen by health care provider
CPT/HCPCS: 36415; 80053; 84703; 85025

== ENCOUNTER 2018-08-31 19:07 | Emergency (ER) | payer MEDICARE ==
--- NOTE | 2018-08-31 20:36 | Emergency Department Report ---
Blank Doc - Documentation Documentation: This is a 38-year-old female that presents with pelvic pain and n/v and vaginal bleeding. This initial assessment/diagnostic orders/clinical plan/treatment(s) is/are subject to change based on patient's health status, clinical progression and re- assessment by fellow clinical providers in the ED. Further treatment and workup at subsequent clinical providers discretion. Patient/guardians urged not to elope from the ED as their condition may be serious if not clinically assessed and managed. Initial orders include: 1- Patient sent to [facility] for further evaluation and treatment 2- labs has been done earlier today but patient LWT 3- UA
[2018-08-31 22:34] LABS: Bacteria,Urine 1+ /HPF (Negative); Bilirubin,Urine NEG (Negative); Blood,Urine NEG (Negative); Color,Urine Yellow (Yellow); Mucus,Urine FEW /HPF; Protein,Urine <15 mg/dL mg/dL (Negative); WBC,Urine < 1.0 /HPF (0.0-6.0)
[2018-08-31] MEDS ORDERED: BENTYL PO ONE (23:21)
[2018-08-31] MEDS ORDERED: ZOFRAN ODT PO ONE (23:22)
--- NOTE | 2018-09-01 00:19 | Emergency Department Report ---
<KEYSHAWN THOMAS - Last Filed: 09/01/18 03:19> ED Abdominal Pain HPI - General Chief Complaint: Abdominal Pain Stated Complaint: LOWER ABD PAIN VOMITTING VAGINAL BLEEDING Time Seen by Provider: 08/31/18 20:36 Source: patient Mode of arrival: Ambulatory Limitations: No Limitations - History of Present Illness Initial Comments: This is a 38-year-old female with a history of diabetes, lupus and chronic pain who presents complaining of lower pelvic pain that is not getting better since her last visit here. Patient states that she has been in appointment with her hired worker Dr. Martinez other injury. Patient states that abdominal pain is localized to her lower pelvic region and is not radiating anywhere else. She denies vaginal bleeding, dysuria, fever, chills, diarrhea symptoms. MD Complaint: abdominal pain - Related Data Home Medications Medication Instructions Recorded Confirmed Last Taken Lisinopril 20 mg PO DAILY 10/08/17 11/26/17 11/20/17 10:00 Zolpidem [Ambien] 10 mg PO QHS 11/26/17 11/26/17 Unknown Detemir (Nf) [Levemir (Nf)] 60 units SUB-Q HS 11/27/17 11/26/17 Unknown Previous Rx's Medication Instructions Recorded Last Taken Type Aspirin [Aspirin BABY CHEW TAB] 81 mg PO QDAY #30 tab.chew 06/12/17 11/20/17 10:00 Rx Clopidogrel [Plavix] 75 mg PO QDAY #30 tablet 06/12/17 11/20/17 10:00 Rx Insulin Regular, Human [HumuLIN R] 15 unit SQ AC #600 units 10/14/17 11/20/17 18:00 Rx Hydroxychloroquine [Plaquenil] 200 mg PO QDAY tablet 11/28/17 Unknown Rx Lispro Insulin [HumaLOG] 0 unit SUB-Q ACHS units 11/28/17 Unknown Rx predniSONE [Deltasone] 20 mg PO BID tablet 11/28/17 Unknown Rx Acetaminophen/Codeine [Tylenol 1 tab PO Q6H PRN #12 tab 07/30/18 Unknown Rx /Codeine # 3 tab] HYDROcodone/APAP 5-325 [[place] 1 each PO Q6HR PRN #10 tablet 08/26/18 Unknown Rx 5/325] Ibuprofen [Motrin 600 MG tab] 600 mg PO Q8H PRN #20 tablet 08/26/18 Unknown Rx Ibuprofen [Motrin 800 MG tab] 800 mg PO TID #30 tablet 08/27/18 Unknown Rx Nitrofurantoin [place]/M-Cryst 100 mg PO Q12HR #14 capsule 08/27/18 Unknown Rx [Macrobid CAP] Dicyclomine [Bentyl] 10 mg PO BID #20 capsule 09/01/18 Unknown Rx Ondansetron [Zofran ODT TAB] 8 mg PO Q12HR #20 tab.rapdis 09/01/18 Unknown Rx Allergies Allergy/AdvReac Type Severity Reaction Status Date / Time egg Allergy Hives Verified 08/31/18 17:56 tramadol HCl [From Ultram] Allergy Hives Verified 08/31/18 17:56 vancomycin Allergy Hives Verified 08/31/18 17:56 ED Review of Systems Comment: All other systems reviewed and negative ED Past Medical Hx - Past Medical History Hx Hypertension: Yes Hx CVA: No Hx Heart Attack/AMI: Yes (05/22, cardiac stent x1) Hx Congestive Heart Failure: No Hx Diabetes: Yes Hx Deep Vein Thrombosis: No Hx Pulmonary Embolism: No Hx GERD: No Hx Liver Disease: No Hx Renal Disease: No Hx Sickle Cell Disease: No Hx Arthritis: No Hx Headaches / Migraines: No Hx Seizures: No Hx Kidney Stones: No Hx 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 for abscess - Social History Smoking Status: Current Every Day Smoker Substance Use Type: Marijuana - Medications Home Medications: Home Medications Medication Instructions Recorded Confirmed Last Taken Type Aspirin [Aspirin BABY CHEW TAB] 81 mg PO QDAY #30 tab.chew 06/12/17 11/26/17 11/20/17 10:00 Rx Clopidogrel [Plavix] 75 mg PO QDAY #30 tablet 06/12/17 11/26/17 11/20/17 10:00 Rx Lisinopril 20 mg PO DAILY 10/08/17 11/26/17 11/20/17 10:00 History Insulin Regular, Human [HumuLIN R] 15 unit SQ AC #600 units 10/14/17 11/26/17 11/20/17 18:00 Rx Zolpidem [Ambien] 10 mg PO QHS 11/26/17 11/26/17 Unknown History Detemir (Nf) [Levemir (Nf)] 60 units SUB-Q HS 11/27/17 11/26/17 Unknown History Hydroxychloroquine [Plaquenil] 200 mg PO QDAY tablet 11/28/17 Unknown Rx Lispro Insulin [HumaLOG] 0 unit SUB-Q ACHS units 11/28/17 Unknown Rx predniSONE [Deltasone] 20 mg PO BID tablet 11/28/17 Unknown Rx Acetaminophen/Codeine [Tylenol 1 tab PO Q6H PRN #12 tab 07/30/18 Unknown Rx /Codeine # 3 tab] HYDROcodone/APAP 5-325 [[place] 1 each PO Q6HR PRN #10 tablet 08/26/18 Unknown Rx 5/325] Ibuprofen [Motrin 600 MG tab] 600 mg PO Q8H PRN #20 tablet 08/26/18 Unknown Rx Ibuprofen [Motrin 800 MG tab] 800 mg PO TID #30 tablet 08/27/18 Unknown Rx Nitrofurantoin [place]/M-Cryst 100 mg PO Q12HR #14 capsule 08/27/18 Unknown Rx [Macrobid CAP] Dicyclomine [Bentyl] 10 mg PO BID #20 capsule 09/01/18 Unknown Rx Ondansetron [Zofran ODT TAB] 8 mg PO Q12HR #20 tab.rapdis 09/01/18 Unknown Rx ED Physical Exam - General Limitations: No Limitations General appearance: alert, in no apparent distress - Head Head exam: Present: atraumatic, normocephalic - Eye Eye exam: Present: normal appearance - ENT ENT exam: Present: mucous membranes moist - Neck Neck exam: Present: normal inspection - Respiratory Respiratory exam: Present: normal lung sounds bilaterally. Absent: respiratory distress - Cardiovascular Cardiovascular Exam: Present: regular rate, normal rhythm. Absent: systolic murmur, diastolic murmur, rubs, gallop - GI/Abdominal GI/Abdominal exam: Present: soft, normal bowel sounds - Extremities Exam Extremities exam: Present: normal inspection - Back Exam Back exam: Present: normal inspection - Neurological Exam Neurological exam: Present: alert, oriented X3 - Psychiatric Psychiatric exam: Present: normal affect, normal mood - Skin Skin exam: Present: warm, dry, intact, normal color. Absent: rash ED Medical Decision Making - Medical Decision Making This is a 38-year-old female with history of chronic pelvic pain. Patient has a follow-up appointment with the hired worker in 4 days. Discussed the patient and lab results are within normal limits mildly elevated glucose for patient has not taken her nighttime medication. Patient received penicillin and Zofran ED. She reports feeling better after administration. Vital signs are normal she is in no acute distress Discussed with the patient that appointment. Patient is speaking in clear sentences, she denies CT scan of her abdomen stating she feels much better ED Disposition Clinical Impression: Chronic pelvic pain in female Disposition: - TO HOME OR SELFCARE Is pt being admited?: No Does the pt Need Aspirin: No Condition: Stable Instructions: Chronic Pelvic Pain in Women (ED), Abdominal Pain (ED) Additional Instructions: Make sure to follow up with the primary care physician as discussed. Take all your medications as you've been prescribed. If you have any worsening symptoms or develop new symptoms please return to ED immediately. Prescriptions: Dicyclomine [Bentyl] 10 mg PO BID #20 capsule Ondansetron [Zofran ODT TAB] 8 mg PO Q12HR #20 tab.rapdis Referrals: GUILLERMO ANTHONY MD [Primary Care Provider] - 3-5 Days TRAVIS LEUNG MD [Referring] - 3-5 Days Forms: Work/School Release Form(ED) Time of Disposition: 00:20 <IMELDA CAIN - Last Filed: 09/01/18 05:10> ED Review of Systems ROS: Stated complaint: LOWER ABD PAIN VOMITTING VAGINAL BLEEDING Other details as noted in HPI ED Course Vital Signs 08/31/18 20:19 Temperature 98.4 F Pulse Rate 87 Respiratory 18 Rate Blood Pressure 123/84 O2 Sat by Pulse 100 Oximetry ED Medical Decision Making - Medical Decision Making pt had a neg upt 08/25 and 08/26 Critical care attestation.: If time is entered above; I have spent that time in minutes in the direct care of this critically ill patient, excluding procedure time. ED Disposition Is pt being admited?: No
[2018-09-01 07:57] VITALS: BP 116/74
== END 2018-09-01 00:30 | disposition home or self-care (01) ==
LOC: ED 19:07
DX: G89.29 Other chronic pain (principal); R10.2 Pelvic and perineal pain; I10 Essential (primary) hypertension; I25.2 Old myocardial infarction; E11.9 Type 2 diabetes mellitus without complications; F17.200 Nicotine dependence, unspecified, uncomplicated; F12.90 Cannabis use, unspecified, uncomplicated; Z95.1 Presence of aortocoronary bypass graft; Z88.8 Allergy status to other drugs, medicaments and biological substances; Z88.1 Allergy status to other antibiotic agents; Z91.012 Allergy to eggs; Z79.82 Long term (current) use of aspirin; Z79.4 Long term (current) use of insulin; Z79.899 Other long term (current) drug therapy
CPT/HCPCS: 81001; 99283; Q0162

== ENCOUNTER 2018-09-08 10:35 | Emergency (ER) | payer MEDICARE ==
[2018-09-08 10:46] VITALS: BP 127/80
--- NOTE | 2018-09-08 13:17 | Emergency Department Report ---
- General Chief complaint: Skin/Abscess/Foreign Body Stated complaint: HS FLARE UP/LUPUS FLARE UP Time Seen by Provider: 09/08/18 13:07 Source: patient Mode of arrival: Ambulatory Limitations: No Limitations - History of Present Illness Initial comments: 38-year-old -Italian female with a past medical history of hypertension and lupus hidradenitis bipolar personality disorder and schizophrenia affective disorder comes in stating that she has a skin boil on her rectal A joint pain secondary to lupus flareup. Patient stated this started yesterday. Patient does have a primary care provider Dr. Ramón Curry he reports her next appointment is not until next month. Patient reports that she is currently taken Plaquenil and prednisone for her lupus. SHe reports she's been going on warm compresses and Epsom salt soaks as well as ibuprofen and Tylenol. MD complaint: abscess/boil Onset/Timin -: days(s) Tetanus Up to Date: yes Improves with: none Worsens with: none Context: none Associated symptoms: denies other symptoms - Related Data Home Medications Medication Instructions Recorded Confirmed Last Taken Lisinopril 20 mg PO DAILY 10/08/17 11/26/17 11/20/17 10:00 Zolpidem [Ambien] 10 mg PO QHS 11/26/17 11/26/17 Unknown Detemir (Nf) [Levemir (Nf)] 60 units SUB-Q HS 11/27/17 11/26/17 Unknown Previous Rx's Medication Instructions Recorded Last Taken Type Aspirin [Aspirin BABY CHEW TAB] 81 mg PO QDAY #30 tab.chew 06/12/17 11/20/17 10:00 Rx Clopidogrel [Plavix] 75 mg PO QDAY #30 tablet 06/12/17 11/20/17 10:00 Rx Insulin Regular, Human [HumuLIN R] 15 unit SQ AC #600 units 10/14/17 11/20/17 18:00 Rx Hydroxychloroquine [Plaquenil] 200 mg PO QDAY tablet 11/28/17 Unknown Rx Lispro Insulin [HumaLOG] 0 unit SUB-Q ACHS units 11/28/17 Unknown Rx predniSONE [Deltasone] 20 mg PO BID tablet 11/28/17 Unknown Rx Acetaminophen/Codeine [Tylenol 1 tab PO Q6H PRN #12 tab 07/30/18 Unknown Rx /Codeine # 3 tab] HYDROcodone/APAP 5-325 [[place] 1 each PO Q6HR PRN #10 tablet 08/26/18 Unknown Rx 5/325] Ibuprofen [Motrin 600 MG tab] 600 mg PO Q8H PRN #20 tablet 08/26/18 Unknown Rx Ibuprofen [Motrin 800 MG tab] 800 mg PO TID #30 tablet 08/27/18 Unknown Rx Nitrofurantoin [place]/M-Cryst 100 mg PO Q12HR #14 capsule 08/27/18 Unknown Rx [Macrobid CAP] Dicyclomine [Bentyl] 10 mg PO BID #20 capsule 09/01/18 Unknown Rx Ondansetron [Zofran ODT TAB] 8 mg PO Q12HR #20 tab.rapdis 09/01/18 Unknown Rx Sulfamethoxazole/Trimethoprim 1 each PO BID 7 Days #14 tablet 09/08/18 Unknown Rx [Bactrim DS TAB] Allergies Allergy/AdvReac Type Severity Reaction Status Date / Time egg Allergy Hives Verified 08/31/18 17:56 tramadol HCl [From Ultram] Allergy Hives Verified 08/31/18 17:56 vancomycin Allergy Hives Verified 08/31/18 17:56 Abscess Boil HPI - HPI Chief Complaint: Skin/Abscess/Foreign Body Stated Complaint: HS FLARE UP/LUPUS FLARE UP Time Seen by Provider: 09/08/18 13:07 Home Medications: Home Medications Medication Instructions Recorded Confirmed Last Taken Lisinopril 20 mg PO DAILY 10/08/17 11/26/17 11/20/17 10:00 Zolpidem [Ambien] 10 mg PO QHS 11/26/17 11/26/17 Unknown Detemir (Nf) [Levemir (Nf)] 60 units SUB-Q HS 11/27/17 11/26/17 Unknown Previous Rx's Medication Instructions Recorded Last Taken Type Aspirin [Aspirin BABY CHEW TAB] 81 mg PO QDAY #30 tab.chew 06/12/17 11/20/17 10:00 Rx Clopidogrel [Plavix] 75 mg PO QDAY #30 tablet 06/12/17 11/20/17 10:00 Rx Insulin Regular, Human [HumuLIN R] 15 unit SQ AC #600 units 10/14/17 11/20/17 18:00 Rx Hydroxychloroquine [Plaquenil] 200 mg PO QDAY tablet 11/28/17 Unknown Rx Lispro Insulin [HumaLOG] 0 unit SUB-Q ACHS units 11/28/17 Unknown Rx predniSONE [Deltasone] 20 mg PO BID tablet 11/28/17 Unknown Rx Acetaminophen/Codeine [Tylenol 1 tab PO Q6H PRN #12 tab 07/30/18 Unknown Rx /Codeine # 3 tab] HYDROcodone/APAP 5-325 [[place] 1 each PO Q6HR PRN #10 tablet 08/26/18 Unknown Rx 5/325] Ibuprofen [Motrin 600 MG tab] 600 mg PO Q8H PRN #20 tablet 08/26/18 Unknown Rx Ibuprofen [Motrin 800 MG tab] 800 mg PO TID #30 tablet 08/27/18 Unknown Rx Nitrofurantoin [place]/M-Cryst 100 mg PO Q12HR #14 capsule 08/27/18 Unknown Rx [Macrobid CAP] Dicyclomine [Bentyl] 10 mg PO BID #20 capsule 09/01/18 Unknown Rx Ondansetron [Zofran ODT TAB] 8 mg PO Q12HR #20 tab.rapdis 09/01/18 Unknown Rx Sulfamethoxazole/Trimethoprim 1 each PO BID 7 Days #14 tablet 09/08/18 Unknown Rx [Bactrim DS TAB] Allergies/Adverse Reactions: Allergies Allergy/AdvReac Type Severity Reaction Status Date / Time egg Allergy Hives Verified 08/31/18 17:56 tramadol HCl [From Ultram] Allergy Hives Verified 08/31/18 17:56 vancomycin Allergy Hives Verified 08/31/18 17:56 ED Review of Systems ROS: Stated complaint: HS FLARE UP/LUPUS FLARE UP Other details as noted in HPI Comment: All other systems reviewed and negative ED Past Medical Hx - Past Medical History Previous Medical History?: Yes Hx Hypertension: Yes Hx CVA: No Hx Heart Attack/AMI: Yes (05/22, cardiac stent x1) Hx Congestive Heart Failure: No Hx Diabetes: Yes Hx Deep Vein Thrombosis: No Hx Pulmonary Embolism: No Hx GERD: No Hx Liver Disease: No Hx Renal Disease: No Hx Sickle Cell Disease: No Hx Arthritis: No Hx Headaches / Migraines: No Hx Seizures: No Hx Kidney Stones: No 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 for abscess - Social History Smoking Status: Never Smoker Substance Use Type: None - Medications Home Medications: Home Medications Medication Instructions Recorded Confirmed Last Taken Type Aspirin [Aspirin BABY CHEW TAB] 81 mg PO QDAY #30 tab.chew 06/12/17 11/26/17 11/20/17 10:00 Rx Clopidogrel [Plavix] 75 mg PO QDAY #30 tablet 06/12/17 11/26/17 11/20/17 10:00 Rx Lisinopril 20 mg PO DAILY 10/08/17 11/26/17 11/20/17 10:00 History Insulin Regular, Human [HumuLIN R] 15 unit SQ AC #600 units 10/14/17 11/26/17 11/20/17 18:00 Rx Zolpidem [Ambien] 10 mg PO QHS 11/26/17 11/26/17 Unknown History Detemir (Nf) [Levemir (Nf)] 60 units SUB-Q HS 11/27/17 11/26/17 Unknown History Hydroxychloroquine [Plaquenil] 200 mg PO QDAY tablet 11/28/17 Unknown Rx Lispro Insulin [HumaLOG] 0 unit SUB-Q ACHS units 11/28/17 Unknown Rx predniSONE [Deltasone] 20 mg PO BID tablet 11/28/17 Unknown Rx Acetaminophen/Codeine [Tylenol 1 tab PO Q6H PRN #12 tab 07/30/18 Unknown Rx /Codeine # 3 tab] HYDROcodone/APAP 5-325 [[place] 1 each PO Q6HR PRN #10 tablet 08/26/18 Unknown Rx 5/325] Ibuprofen [Motrin 600 MG tab] 600 mg PO Q8H PRN #20 tablet 08/26/18 Unknown Rx Ibuprofen [Motrin 800 MG tab] 800 mg PO TID #30 tablet 08/27/18 Unknown Rx Nitrofurantoin [place]/M-Cryst 100 mg PO Q12HR #14 capsule 08/27/18 Unknown Rx [Macrobid CAP] Dicyclomine [Bentyl] 10 mg PO BID #20 capsule 09/01/18 Unknown Rx Ondansetron [Zofran ODT TAB] 8 mg PO Q12HR #20 tab.rapdis 09/01/18 Unknown Rx Sulfamethoxazole/Trimethoprim 1 each PO BID 7 Days #14 tablet 09/08/18 Unknown Rx [Bactrim DS TAB] ED Physical Exam - General Limitations: No Limitations General appearance: alert, in no apparent distress, other (nontoxic in appearance) - Head Head exam: Present: atraumatic, normocephalic - Eye Eye exam: Present: normal appearance - Neck Neck exam: Present: normal inspection, full ROM - Rectal Rectal exam: Present: tenderness - Extremities Exam Extremities exam: Present: full ROM - Back Exam Back exam: Present: normal inspection, full ROM - Neurological Exam Neurological exam: Present: alert, oriented X3 - Psychiatric Psychiatric exam: Present: normal affect, normal mood - Skin Skin exam: Present: warm, dry, intact, normal color, other (multiple scarred skin on perineum secondary to hydradenitis and multiple surgeries well-healed). Absent: rash ED Course Vital Signs 09/08/18 10:40 Temperature 97.9 F Pulse Rate 93 H Respiratory 16 Rate Blood Pressure 127/80 O2 Sat by Pulse 100 Oximetry ED Medical Decision Making - Medical Decision Making 38-year-old -Italian female is well-known here [facility] comes in for reports of lupus flareup in the presence of a skin boil to her rectum. Patient will be placed on Bactrim and to continue with her chronic pain medications with Plaquenil prednisone for lupus she can take ibuprofen or Tylenol for pain. Review of [place] [employer] controlled substance database shows a patient's had 7 different prescribers with 7 different pharmacies in the last 3 months. Review of chart shows the patient had 2 prescriptions in 2 days on 08/2618 and 08/29/18. Patient will be referred to pain management. Critical care attestation.: If time is entered above; I have spent that time in minutes in the direct care of this critically ill patient, excluding procedure time. ED Disposition Clinical Impression: Boil of buttock Chronic pain Qualifiers: Chronic pain type: chronic pain syndrome Qualified Code(s): G89.4 - Chronic pain syndrome Lupus (systemic lupus erythematosus) Qualifiers: Systemic lupus erythematosus type: other Disposition: DC-01 TO HOME OR SELFCARE Is pt being admited?: No Does the pt Need Aspirin: No Condition: Stable Instructions: Furunculosis and Carbunculosis (ED) Additional Instructions: Completes her antibiotics as prescribed. Tylenol and/or ibuprofen for pain management. Follow up with her primary care provider or pain management provider. Prescriptions: Sulfamethoxazole/Trimethoprim [Bactrim DS TAB] 1 each PO BID 7 Days #14 tablet Referrals: RAMÓN WILSON MD [Primary Care Provider] - 3-5 Days
== END 2018-09-08 13:30 | disposition home or self-care (01) ==
LOC: ED 10:35
DX: L02.32 Furuncle of buttock (principal); G89.4 Chronic pain syndrome; M32.9 Systemic lupus erythematosus, unspecified; I10 Essential (primary) hypertension; I25.2 Old myocardial infarction; E11.9 Type 2 diabetes mellitus without complications
CPT/HCPCS: 99282

== ENCOUNTER 2018-09-10 14:04 | Emergency (ER) | payer MEDICARE ==
[2018-09-10 14:18] VITALS: BP 142/98
--- NOTE | 2018-09-10 14:20 | Emergency Department Report ---
Blank Doc - Documentation Documentation: This is a 38-year-old female that presents with dysuria and vaginal discharge. Stated has some pelvic discomfort. This initial assessment/diagnostic orders/clinical plan/treatment(s) is/are subject to change based on patient's health status, clinical progression and re-assessment by fellow clinical providers in the ED. Further treatment and workup at subsequent clinical providers discretion. Patient/guardians urged not to elope from the ED as their condition may be serious if not clinically assessed and managed. Initial orders include: 1- Patient sent to [facility] for further evaluation and treatment 2- UA 3- pelvic wet prep and GC
[2018-09-10 14:33] LABS: Bilirubin,Urine NEG (Negative); Blood,Urine NEG (Negative); Color,Urine Straw (Yellow); Mucus,Urine FEW /HPF; Protein,Urine <15 mg/dL mg/dL (Negative); Urobilinogen,Urine < 2.0 mg/dL (<2.0)
[2018-09-10 14:36] LABS: HCG Qualitative,Urine Negative (Negative)
--- NOTE | 2018-09-10 16:14 | Emergency Department Report ---
ED Female HPI - General Chief complaint: Urogenital-Female Stated complaint: BURNING/VAGINAL DISCHARGE Time Seen by Provider: 09/10/18 14:13 Source: patient Mode of arrival: Ambulatory Limitations: No Limitations - History of Present Illness Initial comments: This is a 38-year-old -Portuguese female who presents to emergency room with vaginal discharge and dysuria since this morning. Past medical history of diabetes, [place] with one stent placed, hypertension, bipolar, lupus, and hydradenitis. Patient's states her menstrual cycle ended 3 days ago and she applied a Betadine douche. States she had sexual intercourse with one male partner and was concerned of possible STD. MD Complaint: vaginal discharge, possible STD -: This morning Severity: mild Severity scale (0 -10): 5 Quality: burning Consistency: intermittent Improves with: none Worsens with: none Are you Now?: No Last Menstrual Period: 09/02/18 EDC: 06/09/19 Associated Symptoms: vaginal discharge, dysuria. denies: vaginal bleeding, abdominal pain, nausea/vomiting, fever/chills, headaches, loss of appetite, hematuria, rash, seizure, shortness of breath, syncope, weakness - Related Data Sexually active: Yes Home Medications Medication Instructions Recorded Confirmed Last Taken Lisinopril 20 mg PO DAILY 10/08/17 11/26/17 11/20/17 10:00 Zolpidem [Ambien] 10 mg PO QHS 11/26/17 11/26/17 Unknown Detemir (Nf) [Levemir (Nf)] 60 units SUB-Q HS 11/27/17 11/26/17 Unknown Previous Rx's Medication Instructions Recorded Last Taken Type Aspirin [Aspirin BABY CHEW TAB] 81 mg PO QDAY #30 tab.chew 06/12/17 11/20/17 10:00 Rx Clopidogrel [Plavix] 75 mg PO QDAY #30 tablet 06/12/17 11/20/17 10:00 Rx Insulin Regular, Human [HumuLIN R] 15 unit SQ AC #600 units 10/14/17 11/20/17 18 :00 Rx Hydroxychloroquine [Plaquenil] 200 mg PO QDAY tablet 11/28/17 Unknown Rx Lispro Insulin [HumaLOG] 0 unit SUB-Q ACHS units 11/28/17 Unknown Rx predniSONE [Deltasone] 20 mg PO BID tablet 11/28/17 Unknown Rx Acetaminophen/Codeine [Tylenol 1 tab PO Q6H PRN #12 tab 07/30/18 Unknown Rx /Codeine # 3 tab] HYDROcodone/APAP 5-325 [[place] 1 each PO Q6HR PRN #10 tablet 08/26/18 Unknown Rx 5/325] Ibuprofen [Motrin 600 MG tab] 600 mg PO Q8H PRN #20 tablet 08/26/18 Unknown Rx Ibuprofen [Motrin 800 MG tab] 800 mg PO TID #30 tablet 08/27/18 Unknown Rx Nitrofurantoin [place]/M-Cryst 100 mg PO Q12HR #14 capsule 08/27/18 Unknown Rx [Macrobid CAP] Dicyclomine [Bentyl] 10 mg PO BID #20 capsule 09/01/18 Unknown Rx Ondansetron [Zofran ODT TAB] 8 mg PO Q12HR #20 tab.rapdis 09/01/18 Unknown Rx Sulfamethoxazole/Trimethoprim 1 each PO BID 7 Days #14 tablet 09/08/18 Unknown Rx [Bactrim DS TAB] Allergies Allergy/AdvReac Type Severity Reaction Status Date / Time egg Allergy Hives Verified 09/10/18 14:18 tramadol HCl [From Ultram] Allergy Hives Verified 09/10/18 14:18 vancomycin Allergy Hives Verified 09/10/18 14:18 ED Review of Systems ROS: Stated complaint: BURNING/VAGINAL DISCHARGE Other details as noted in HPI Constitutional: denies: chills, fever Respiratory: denies: cough, shortness of breath, wheezing Cardiovascular: denies: chest pain, palpitations Gastrointestinal: denies: abdominal pain, nausea, diarrhea Genitourinary: dysuria, discharge. denies: urgency Musculoskeletal: denies: back pain, joint swelling, arthralgia Skin: denies: rash, lesions Neurological: denies: headache, weakness, paresthesias Psychiatric: denies: anxiety, depression ED Past Medical Hx - Past Medical History Previous Medical History?: Yes Hx Hypertension: Yes Hx CVA: No Hx Heart Attack/AMI: Yes (05/22, cardiac stent x1) Hx Congestive Heart Failure: No Hx Diabetes: Yes Hx Deep Vein Thrombosis: No Hx Pulmonary Embolism: No Hx GERD: No Hx Liver Disease: No Hx Renal Disease: No Hx Sickle Cell Disease: No Hx Arthritis: No Hx Headaches / Migraines: No Hx Seizures: No Hx Kidney Stones: No 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 for abscess - Social History Smoking Status: Current Every Day Smoker - Medications Home Medications: Home Medications Medication Instructions Recorded Confirmed Last Taken Type Aspirin [Aspirin BABY CHEW TAB] 81 mg PO QDAY #30 tab.chew 06/12/17 11/26/17 11/20/17 10:00 Rx Clopidogrel [Plavix] 75 mg PO QDAY #30 tablet 06/12/17 11/26/17 11/20/17 10:00 Rx Lisinopril 20 mg PO DAILY 10/08/17 11/26/17 11/20/17 10:00 History Insulin Regular, Human [HumuLIN R] 15 unit SQ AC #600 units 10/14/17 11/26/17 11/20/17 18:00 Rx Zolpidem [Ambien] 10 mg PO QHS 11/26/17 11/26/17 Unknown History Detemir (Nf) [Levemir (Nf)] 60 units SUB-Q HS 11/27/17 11/26/17 Unknown History Hydroxychloroquine [Plaquenil] 200 mg PO QDAY tablet 11/28/17 Unknown Rx Lispro Insulin [HumaLOG] 0 unit SUB-Q ACHS units 11/28/17 Unknown Rx predniSONE [Deltasone] 20 mg PO BID tablet 11/28/17 Unknown Rx Acetaminophen/Codeine [Tylenol 1 tab PO Q6H PRN #12 tab 07/30/18 Unknown Rx /Codeine # 3 tab] HYDROcodone/APAP 5-325 [[place] 1 each PO Q6HR PRN #10 tablet 08/26/18 Unknown Rx 5/325] Ibuprofen [Motrin 600 MG tab] 600 mg PO Q8H PRN #20 tablet 08/26/18 Unknown Rx Ibuprofen [Motrin 800 MG tab] 800 mg PO TID #30 tablet 08/27/18 Unknown Rx Nitrofurantoin [place]/M-Cryst 100 mg PO Q12HR #14 capsule 08/27/18 Unknown Rx [Macrobid CAP] Dicyclomine [Bentyl] 10 mg PO BID #20 capsule 09/01/18 Unknown Rx Ondansetron [Zofran ODT TAB] 8 mg PO Q12HR #20 tab.rapdis 09/01/18 Unknown Rx Sulfamethoxazole/Trimethoprim 1 each PO BID 7 Days #14 tablet 09/08/18 Unknown Rx [Bactrim DS TAB] ED Physical Exam - General Limitations: No Limitations General appearance: alert, in no apparent distress, obese (morbidly) - Respiratory Respiratory exam: Present: normal lung sounds bilaterally. Absent: respiratory distress - Cardiovascular Cardiovascular Exam: Present: regular rate, normal rhythm. Absent: systolic murmur, diastolic murmur, rubs, gallop - GI/Abdominal GI/Abdominal exam: Present: soft, normal bowel sounds, other (obese abdomen). Absent: distended, tenderness, guarding, rebound, rigid - External exam: Present: normal external exam Speculum exam: Present: vaginal discharge (malodorous yellowish-raza discharge). Absent: cervical discharge, vaginal bleeding, foreign body, tissue, laceration Bi-manual exam: Present: normal bi-manual exam - Back Exam Back exam: Absent: CVA tenderness (R), CVA tenderness (L) - Neurological Exam Neurological exam: Present: alert, oriented X3 - Psychiatric Psychiatric exam: Present: normal affect, normal mood - Skin Skin exam: Present: warm, dry, intact, normal color. Absent: rash ED Course Vital Signs 09/10/18 14:16 Temperature 97.6 F Pulse Rate 83 Respiratory 16 Rate Blood Pressure 142/98 [Right] O2 Sat by Pulse 100 Oximetry ED Medical Decision Making - Lab Data Lab Results 09/10/18 Range/Units 14:07 Urine Color Straw (Yellow) Urine Turbidity Clear (Clear) Urine pH 6.0 (5.0-7.0) Ur Specific [place] 1.032 H (1.003-1.030) Urine Protein <15 mg/dl (Negative) mg/dL Urine Glucose (UA) >=500 (Negative) mg/dL Urine Ketones Neg (Negative) mg/dL Urine Blood Neg (Negative) Urine Nitrite Neg (Negative) Urine Bilirubin Neg (Negative) Urine Urobilinogen < 2.0 (<2.0) mg/dL Ur Leukocyte Esterase Neg (Negative) Urine WBC (Auto) 1.0 (0.0-6.0) /HPF Urine RBC (Auto) 2.0 (0.0-6.0) /HPF U Epithel Cells (Auto) 1.0 (0-13.0) /HPF Urine Mucus Few /HPF Urine HCG, Qual Negative (Negative) - Medical Decision Making Patient was examined by me. Vitals are stable and in no acute distress. Wet prep, gonorrhea and chlamydia obtained via pelvic exam. Normal urianalysis and urine hCG. Wet prep positive for polymorphonuclear chells, negative for clue cells, yeast, and trichomonas. Empirically treated with Rocephin 250 mg IM and azithromycin 1 g by mouth. Instructed to follow up in 3-5 days for pending gonorrhea and chlamydia results. Patient discharged home in stable condition. Discussed prevention options. F/U with PCP or Health Department. Critical care attestation.: If time is entered above; I have spent that time in minutes in the direct care of this critically ill patient, excluding procedure time. ED Disposition Clinical Impression: Vaginal discharge, Exposure to STD Disposition: DC-01 TO HOME OR SELFCARE Is pt being admited?: No Does the pt Need Aspirin: No Condition: Stable Instructions: Sexually Transmitted Diseases (ED), Safe Sex (ED) Additional Instructions: Avoid drinking alcohol while taking antibiotics and for 24 hours after completion. Continue safe sexual intercourse. Follow up with Primary Care Provider or health department. Referrals: GUILLERMO ANTHONY MD [Primary Care Provider] - 3-5 Days [facility] [place][Note 3] [Outside] - 3-5 Days [facility] [Outside] - 3-5 Days Time of Disposition: 16:57
[2018-09-10] MEDS ORDERED: XYLOCAINE 1% MPF 5 mL INFILTRATI ONE (17:00)
[2018-09-10] MEDS ORDERED: ROCEPHIN IM ONE (17:00)
[2018-09-10] MEDS ORDERED: ZITHROMAX PO ONE (17:00)
== END 2018-09-10 17:43 | disposition home or self-care (01) ==
LOC: ED 14:04
DX: N89.8 Other specified noninflammatory disorders of vagina (principal); R30.0 Dysuria; I10 Essential (primary) hypertension; I25.2 Old myocardial infarction; E11.9 Type 2 diabetes mellitus without complications; F17.200 Nicotine dependence, unspecified, uncomplicated; Z79.82 Long term (current) use of aspirin; Z79.4 Long term (current) use of insulin; Z79.899 Other long term (current) drug therapy; Z88.6 Allergy status to analgesic agent; Z88.1 Allergy status to other antibiotic agents; Z91.012 Allergy to eggs
CPT/HCPCS: 81001; 81025; 87210; 87591; 96372; 99283; J0696

== ENCOUNTER 2018-09-11 13:57 | Emergency (ER) | payer MEDICARE ==
--- NOTE | 2018-09-11 16:00 | Emergency Department Report ---
Blank Doc - Documentation Documentation: This is a 38-year-old female that presents with generalized rash with itching. Stated she believes its from bactrim. Denies any SOB or facial swelling. No angioedema noted. Uvula midline. This initial assessment/diagnostic orders/clinical plan/treatment(s) is/are subject to change based on patient's health status, clinical progression and re- assessment by fellow clinical providers in the ED. Further treatment and workup at subsequent clinical providers discretion. Patient/guardians urged not to elope from the ED as their condition may be serious if not clinically assessed and managed. Initial orders include: 1- Patient sent to [facility] for further evaluation and treatment
[2018-09-11 16:02] VITALS: BP 131/88
== END 2018-09-11 17:52 | disposition left against medical advice (07) ==
LOC: ED 13:57
DX: R21 Rash and other nonspecific skin eruption (principal); Z53.21 Procedure and treatment not carried out due to patient leaving prior to being seen by health care provider

== ENCOUNTER 2018-09-14 03:35 | Emergency (ER) | payer MEDICARE ==
[2018-09-14 04:51] LABS: Basophils # (Auto) 0.1 K/mm3 (0.0-0.1); Basophils % (Auto) 0.9 % (0.0-1.8); Eosinophils # (Auto) 0.1 K/mm3 (0.0-0.4); Eosinophils % (Auto) 1.1 % (0.0-4.3); Hematocrit 33.7 % (30.3-42.9); Hemoglobin 10.7 gm/dl (10.1-14.3); Lymphocytes # (Auto) 3.1 K/mm3 (1.2-5.4); Lymphocytes % (Auto) 33.4 % (13.4-35.0); Mean Corpuscular HGB Conc 32 % (30-34); Mean Corpuscular Volume 70 fl (79-97); Monocytes # (Auto) 0.5 K/mm3 (0.0-0.8); Monocytes % (Auto) 5.2 % (0.0-7.3); Platelet Count 397 K/mm3 (140-440); Red Blood Count 4.81 M/mm3 (3.65-5.03); Red Cell Distribution Width 16.3 % (13.2-15.2)
[2018-09-14 05:24] LABS: Alanine Aminotransferase 12 units/L (7-56); Albumin 3.7 g/dL (3.9-5); BUN/Creatinine Ratio 16; Blood Urea Nitrogen 11 mg/dL (7-17); Calcium 9.1 mg/dL (8.4-10.2); Hemolysis Index 17
[2018-09-14 05:36] LABS: Bilirubin,Urine NEG (Negative); Blood,Urine LG (Negative); Color,Urine Yellow (Yellow); Mucus,Urine FEW /HPF; Protein,Urine <15 mg/dL mg/dL (Negative); Urobilinogen,Urine < 2.0 mg/dL (<2.0)
[2018-09-14] MEDS ORDERED: NACL 0.9% 1000 ML 1,000 ML IV ONE (08:00)
[2018-09-14] MEDS ORDERED: TORADOL IV ONE (08:00)
--- NOTE | 2018-09-14 08:02 | Emergency Department Report ---
ED Abdominal Pain HPI - General Chief Complaint: Back Pain/Injury Stated Complaint: POSS KIDNEY STONE Source: patient Mode of arrival: Ambulatory Limitations: No Limitations - History of Present Illness Initial Comments: This a 38 year-old female who presents to the emergency room with low back pain radiating to right flank for 4 hours. Patient states she has been having intermittent symptoms for the past 3-4 days. She was seen by her primary care doctor and will start yesterday and told it may possibly be a kidney stone. She was not short to increase fluid intake and take ibuprofen for pain. Patient reports nausea and vomiting along with right flank pain, dysuria, and urinary frequency. She denies diarrhea, vaginal discharge, vaginal bleeding, chest pain, or lightheadedness. MD Complaint: abdominal pain Onset/Timin -: hour(s) Location: RLQ Radiation: R flank Migration to: no migration Severity: moderate Severity scale (0 -10): 8 Quality: stabbing Consistency: constant Improves With: nothing Worsens With: nothing Associated Symptoms: nausea, vomiting, dysuria. denies: diarrhea, fever, chills, constipation, hematemesis, hematochezia, melena, hematuria, anorexia, syncope Treatments Prior to Arrival: NSAIDs - Related Data LMP Date: 08/26/18 Home Medications Medication Instructions Recorded Confirmed Last Taken Lisinopril 20 mg PO DAILY 10/08/17 11/26/17 11/20/17 10:00 Zolpidem [Ambien] 10 mg PO QHS 11/26/17 11/26/17 Unknown Detemir (Nf) [Levemir (Nf)] 60 units SUB-Q HS 11/27/17 11/26/17 Unknown Previous Rx's Medication Instructions Recorded Last Taken Type Aspirin [Aspirin BABY CHEW TAB] 81 mg PO QDAY #30 tab.chew 06/12/17 11/20/17 10:00 Rx Clopidogrel [Plavix] 75 mg PO QDAY #30 tablet 06/12/17 11/20/17 10:00 Rx Insulin Regular, Human [HumuLIN R] 15 unit SQ AC #600 units 10/14/17 11/20/17 18:00 Rx Hydroxychloroquine [Plaquenil] 200 mg PO QDAY tablet 11/28/17 Unknown Rx Lispro Insulin [HumaLOG] 0 unit SUB-Q ACHS units 11/28/17 Unknown Rx predniSONE [Deltasone] 20 mg PO BID tablet 11/28/17 Unknown Rx Acetaminophen/Codeine [Tylenol 1 tab PO Q6H PRN #12 tab 07/30/18 Unknown Rx /Codeine # 3 tab] HYDROcodone/APAP 5-325 [[place] 1 each PO Q6HR PRN #10 tablet 08/26/18 Unknown Rx 5/325] Ibuprofen [Motrin 600 MG tab] 600 mg PO Q8H PRN #20 tablet 08/26/18 Unknown Rx Ibuprofen [Motrin 800 MG tab] 800 mg PO TID #30 tablet 08/27/18 Unknown Rx Nitrofurantoin [place]/M-Cryst 100 mg PO Q12HR #14 capsule 08/27/18 Unknown Rx [Macrobid CAP] Dicyclomine [Bentyl] 10 mg PO BID #20 capsule 09/01/18 Unknown Rx Ondansetron [Zofran ODT TAB] 8 mg PO Q12HR #20 tab.rapdis 09/01/18 Unknown Rx Sulfamethoxazole/Trimethoprim 1 each PO BID 7 Days #14 tablet 09/08/18 Unknown Rx [Bactrim DS TAB] Ondansetron [Zofran Odt] 4 mg PO Q8HR PRN #15 tab.rapdis 09/14/18 Unknown Rx Allergies Allergy/AdvReac Type Severity Reaction Status Date / Time egg Allergy Hives Verified 09/10/18 14:18 tramadol HCl [From Ultram] Allergy Hives Verified 09/10/18 14:18 vancomycin Allergy Hives Verified 09/10/18 14:18 ED Review of Systems ROS: Stated complaint: POSS KIDNEY STONE Other details as noted in HPI Constitutional: denies: chills, fever Respiratory: denies: cough, shortness of breath, wheezing Cardiovascular: denies: chest pain, palpitations Gastrointestinal: abdominal pain, nausea, vomiting. denies: diarrhea Musculoskeletal: back pain (right flank). denies: joint swelling, arthralgia Skin: denies: rash, lesions Neurological: denies: headache, weakness, paresthesias Psychiatric: denies: anxiety, depression ED Past Medical Hx - Past Medical History Previous Medical History?: Yes Hx Hypertension: Yes Hx CVA: No Hx Heart Attack/AMI: Yes (05/22, cardiac stent x1) Hx Congestive Heart Failure: No Hx Diabetes: Yes Hx Deep Vein Thrombosis: No Hx Pulmonary Embolism: No Hx GERD: No Hx Liver Disease: No Hx Renal Disease: No Hx Sickle Cell Disease: No Hx Arthritis: No Hx Headaches / Migraines: No Hx Seizures: No Hx Kidney Stones: No 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 for abscess - Social History Smoking Status: Current Every Day Smoker Substance Use Type: Marijuana - Medications Home Medications: Home Medications Medication Instructions Recorded Confirmed Last Taken Type Aspirin [Aspirin BABY CHEW TAB] 81 mg PO QDAY #30 tab.chew 06/12/17 11/26/17 11/20/17 10:00 Rx Clopidogrel [Plavix] 75 mg PO QDAY #30 tablet 06/12/17 11/26/17 11/20/17 10:00 Rx Lisinopril 20 mg PO DAILY 10/08/17 11/26/17 11/20/17 10:00 History Insulin Regular, Human [HumuLIN R] 15 unit SQ AC #600 units 10/14/17 11/26/17 11/20/17 18:00 Rx Zolpidem [Ambien] 10 mg PO QHS 11/26/17 11/26/17 Unknown History Detemir (Nf) [Levemir (Nf)] 60 units SUB-Q HS 11/27/17 11/26/17 Unknown History Hydroxychloroquine [Plaquenil] 200 mg PO QDAY tablet 11/28/17 Unknown Rx Lispro Insulin [HumaLOG] 0 unit SUB-Q ACHS units 11/28/17 Unknown Rx predniSONE [Deltasone] 20 mg PO BID tablet 11/28/17 Unknown Rx Acetaminophen/Codeine [Tylenol 1 tab PO Q6H PRN #12 tab 07/30/18 Unknown Rx /Codeine # 3 tab] HYDROcodone/APAP 5-325 [[place] 1 each PO Q6HR PRN #10 tablet 08/26/18 Unknown Rx 5/325] Ibuprofen [Motrin 600 MG tab] 600 mg PO Q8H PRN #20 tablet 08/26/18 Unknown Rx Ibuprofen [Motrin 800 MG tab] 800 mg PO TID #30 tablet 08/27/18 Unknown Rx Nitrofurantoin [place]/M-Cryst 100 mg PO Q12HR #14 capsule 08/27/18 Unknown Rx [Macrobid CAP] Dicyclomine [Bentyl] 10 mg PO BID #20 capsule 09/01/18 Unknown Rx Ondansetron [Zofran ODT TAB] 8 mg PO Q12HR #20 tab.rapdis 09/01/18 Unknown Rx Sulfamethoxazole/Trimethoprim 1 each PO BID 7 Days #14 tablet 09/08/18 Unknown Rx [Bactrim DS TAB] Ondansetron [Zofran Odt] 4 mg PO Q8HR PRN #15 tab.rapdis 09/14/18 Unknown Rx ED Physical Exam - General Limitations: No Limitations General appearance: alert, in no apparent distress, obese - Respiratory Respiratory exam: Present: normal lung sounds bilaterally. Absent: respiratory distress - Cardiovascular Cardiovascular Exam: Present: regular rate, normal rhythm. Absent: systolic murmur, diastolic murmur, rubs, gallop - GI/Abdominal GI/Abdominal exam: Present: soft, tenderness (right lower quadrant), normal bowel sounds. Absent: distended, guarding, rebound, rigid, mass, bruit, pulsatile mass - Back Exam Back exam: Present: CVA tenderness (R). Absent: CVA tenderness (L), rash noted - Neurological Exam Neurological exam: Present: alert, oriented X3, normal gait - Psychiatric Psychiatric exam: Present: normal affect, normal mood - Skin Skin exam: Present: warm, dry, intact, normal color. Absent: rash ED Course Vital Signs 09/14/18 09/14/18 03:49 12:00 Temperature 98.4 F 98.2 F Pulse Rate 95 H 69 Respiratory 20 18 Rate Blood Pressure 151/72 159/87 [Right] O2 Sat by Pulse 100 99 Oximetry ED Medical Decision Making - Lab Data Result diagrams: 09/14/18 04:27 09/14/18 04:27 Lab Results 09/14/18 09/14/18 09/14/18 Range/Units 04:00 04:27 04:27 WBC 9.3 (4.5-11.0) K/mm3 RBC 4.81 (3.65-5.03) M/mm3 Hgb 10.7 (10.1-14.3) gm/dl Hct 33.7 (30.3-42.9) % MCV 70 L (79-97) fl MCH 22 L (28-32) pg MCHC 32 (30-34) % RDW 16.3 H (13.2-15.2) % Plt Count 397 (140-440) K/mm3 Lymph % (Auto) 33.4 (13.4-35.0) % [place] % (Auto) 5.2 (0.0-7.3) % Eos % (Auto) 1.1 (0.0-4.3) % Baso % (Auto) 0.9 (0.0-1.8) % Lymph # 3.1 (1.2-5.4) K/mm3 [place] # 0.5 (0.0-0.8) K/mm3 Eos # 0.1 (0.0-0.4) K/mm3 Baso # 0.1 (0.0-0.1) K/mm3 Seg Neutrophils % 59.4 (40.0-70.0) % Seg Neutrophils # 5.5 (1.8-7.7) K/mm3 Sodium 134 L (137-145) mmol/L Potassium 4.2 (3.6-5.0) mmol/L Chloride 98.5 (98-107) mmol/L Carbon Dioxide 21 L (22-30) mmol/L Anion Gap 19 mmol/L BUN 11 (7-17) mg/dL Creatinine 0.7 (0.7-1.2) mg/dL Estimated GFR > 60 ml/min BUN/Creatinine Ratio 16 % Glucose 337 H (65-100) mg/dL POC Glucose (70-105) Calcium 9.1 (8.4-10.2) mg/dL Total Bilirubin 0.20 (0.1-1.2) mg/dL AST 15 (5-40) units/L ALT 12 (7-56) units/L Alkaline Phosphatase 102 (35-129) units/L Total Protein 7.2 (6.3-8.2) g/dL Albumin 3.7 L (3.9-5) g/dL Albumin/Globulin Ratio 1.1 % HCG, Qual (Negative) Urine Color Yellow (Yellow) Urine Turbidity Clear (Clear) Urine pH 6.0 (5.0-7.0) Ur Specific [place] 1.008 (1.003-1.030) Urine Protein <15 mg/dl (Negative) mg/dL Urine Glucose (UA) Neg (Negative) mg/dL Urine Ketones Neg (Negative) mg/dL Urine Blood Lg (Negative) Urine Nitrite Neg (Negative) Urine Bilirubin Neg (Negative) Urine Urobilinogen < 2.0 (<2.0) mg/dL Ur Leukocyte Esterase Neg (Negative) Urine WBC (Auto) 1.0 (0.0-6.0) /HPF Urine RBC (Auto) 38.0 (0.0-6.0) /HPF U Epithel Cells (Auto) 3.0 (0-13.0) /HPF Urine Mucus Few /HPF 09/14/18 09/14/18 Range/Units 04:27 10:42 WBC (4.5-11.0) K/mm3 RBC (3.65-5.03) M/mm3 Hgb (10.1-14.3) gm/dl Hct (30.3-42.9) % MCV (79-97) fl MCH (28-32) pg MCHC (30-34) % RDW (13.2-15.2) % Plt Count (140-440) K/mm3 Lymph % (Auto) (13.4-35.0) % [place] % (Auto) (0.0-7.3) % Eos % (Auto) (0.0-4.3) % Baso % (Auto) (0.0-1.8) % Lymph # (1.2-5.4) K/mm3 [place] # (0.0-0.8) K/mm3 Eos # (0.0-0.4) K/mm3 Baso # (0.0-0.1) K/mm3 Seg Neutrophils % (40.0-70.0) % Seg Neutrophils # (1.8-7.7) K/mm3 Sodium (137-145) mmol/L Potassium (3.6-5.0) mmol/L Chloride (98-107) mmol/L Carbon Dioxide (22-30) mmol/L Anion Gap mmol/L BUN (7-17) mg/dL Creatinine (0.7-1.2) mg/dL Estimated GFR ml/min BUN/Creatinine Ratio % Glucose (65-100) mg/dL POC Glucose 299 H (70-105) Calcium (8.4-10.2) mg/dL Total Bilirubin (0.1-1.2) mg/dL AST (5-40) units/L ALT (7-56) units/L Alkaline Phosphatase (35-129) units/L Total Protein (6.3-8.2) g/dL Albumin (3.9-5) g/dL Albumin/Globulin Ratio % HCG, Qual Negative (Negative) Urine Color (Yellow) Urine Turbidity (Clear) Urine pH (5.0-7.0) Ur Specific [place] (1.003-1.030) Urine Protein (Negative) mg/dL Urine Glucose (UA) (Negative) mg/dL Urine Ketones (Negative) mg/dL Urine Blood (Negative) Urine Nitrite (Negative) Urine Bilirubin (Negative) Urine Urobilinogen (<2.0) mg/dL Ur Leukocyte Esterase (Negative) Urine WBC (Auto) (0.0-6.0) /HPF Urine RBC (Auto) (0.0-6.0) /HPF U Epithel Cells (Auto) (0-13.0) /HPF Urine Mucus /HPF - Radiology Data Radiology results: report reviewed CT ABDOMEN PELVIS WITHOUT CONTRAST: HISTORY: Right flank pain. COMPARISON: 12/08/17. TECHNIQUE: Helical CT in 1.25mm intervals without IV contrast. Sagittal and coronal reconstructions. FINDINGS: Lung bases: Normal. Liver: Normal. Biliary system: Normal. Pancreas: Normal. Spleen: Normal. Kidneys/ureters/bladder: The kidneys are normal size, contour and position. There are a few scattered bilateral punctate renal calyceal stones in both kidneys. No ureteral stones or hydronephrosis is identified. The bladder is unremarkable. These findings have not significantly changed since 12/08/17. Adrenal glands: Normal. Aorta: Normal. Intestines: Normal. Appendix: Normal. Pelvic viscera: 2.7 x 2.0 cm right ovarian cyst is suspected. The uterus and left adnexa are unremarkable. Ascites: None. Adenopathy: None. Musculoskeletal: Normal. IMPRESSION: Punctate bilateral renal calyceal stones. No ureteral stones or hydronephrosis. 2.7 x 2.0 cm right ovarian cyst. - Medical Decision Making Patient was examined by me. Vitals are normal and patient is in no acute distress. Obtained labs and CT of abdomen and pelvis without contrast. Glucose elevated. Patient given regular insulin [address] of abdomen and pelvis dictated by radiologist's report revealed by myself with findings of punctate bilateral renal calyceal stones. No ureteral stones or hydronephrosis. 2.7 x 2.0 cm right ovarian cyst. Glucose trended down. Patient instructed to continue taking current medication prescribed PCP. A referral given to urology. Start Zofran for nausea and vomiting. Patient instructed continue taking her current pain medication prescribed by PCP on yesterday. Patient discharged home in stable condition. Follow up with PCP in the next 2-3 days if symptoms are worsening. Critical care attestation.: If time is entered above; I have spent that time in minutes in the direct care of this critically ill patient, excluding procedure time. 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 Change diet to low-protein and a low-sodium diet to prevent reoccurrence. Strain urine to observe for passing stones. Continue taking current medication and follow up with your primary care doctor. Follow-up with primary care doctor in 2-3 days. Follow-up with urology in 1-2 weeks for management of kidney stones. Prescriptions: Ondansetron [Zofran Odt] 4 mg PO Q8HR PRN #15 tab.rapdis PRN Reason: nausea and vomiting Referrals: RAMÓN WILSON MD [Primary Care Provider] - 3-5 Days JEAN DOLAN MD [Staff Physician] - 3-5 Days Forms: Work/School Release Form(ED) Time of Disposition: 11:51
[2018-09-14] MEDS ORDERED: NORCO 5/325 PO ONE (08:24)
[2018-09-14] MEDS ORDERED: ZOFRAN ODT PO ONE (08:24)
--- NOTE | 2018-09-14 09:40 | Cat Scan Report ---
CT ABDOMEN PELVIS WITHOUT CONTRAST: HISTORY: Right flank pain. COMPARISON: 12/08/17. TECHNIQUE: Helical CT in 1.25mm intervals without IV contrast. Sagittal and coronal reconstructions. FINDINGS: Lung bases: Normal. Liver: Normal. Biliary system: Normal. Pancreas: Normal. Spleen: Normal. Kidneys/ureters/bladder: The kidneys are normal size, contour and position. There are a few scattered bilateral punctate renal calyceal stones in both kidneys. No ureteral stones or hydronephrosis is identified. The bladder is unremarkable. These findings have not significantly changed since 12/08/17. Adrenal glands: Normal. Aorta: Normal. Intestines: Normal. Appendix: Normal. Pelvic viscera: 2.7 x 2.0 cm right ovarian cyst is suspected. The uterus and left adnexa are unremarkable. Ascites: None. Adenopathy: None. Musculoskeletal: Normal. IMPRESSION: Punctate bilateral renal calyceal stones. No ureteral stones or hydronephrosis. 2.7 x 2.0 cm right ovarian cyst.
[2018-09-14] MEDS ORDERED: HumuLIN R SUB-Q ONE ×2 (09:56→10:45)
[2018-09-14] MEDS ORDERED: TORADOL IM ONE (10:20)
[2018-09-14 12:13] VITALS: BP 159/87
== END 2018-09-14 12:03 | disposition home or self-care (01) ==
LOC: ED 03:35
DX: E11.65 Type 2 diabetes mellitus with hyperglycemia (principal); N23 Unspecified renal colic; R10.9 Unspecified abdominal pain; R11.2 Nausea with vomiting, unspecified; I10 Essential (primary) hypertension; I25.2 Old myocardial infarction; F17.200 Nicotine dependence, unspecified, uncomplicated; F12.10 Cannabis abuse, uncomplicated
CPT/HCPCS: 36415; 74176; 80053; 81001; 82962; 84703; 85025; 96372; 99284; J1885; J7030; J1815; Q0162

== ENCOUNTER 2018-09-20 04:44 | Emergency (ER) | payer MEDICARE ==
[2018-09-20 05:42] LABS: Bilirubin,Urine NEG (Negative); Blood,Urine NEG (Negative); Color,Urine Yellow (Yellow); Protein,Urine <15 mg/dL mg/dL (Negative); Urobilinogen,Urine < 2.0 mg/dL (<2.0)
[2018-09-20 05:45] LABS: HCG Qualitative,Urine Negative (Negative)
--- NOTE | 2018-09-20 07:56 | Emergency Department Report ---
ED Dysuria HPI - HPI Chief Complaint: Urogenital-Female Stated Complaint: VAGINAL ITCHING AND BURING Time Seen by Provider: 09/20/18 07:14 Severity: Mild Other History: Miss Osvaldo Riley is a 38-year-old female that comes to the ER from [place] with vaginal discharge. Patient has been seen 5 times prior this month for similar complaints worked up for STDs and they were negative. She had a wet prep that was negative. Patient is diabetic. On admission her blood sugar was 135. She states that her blood sugars usually controlled. Patient states she is not worried about STD she's only had sex with her . Patient states that she has had UTIs before and this is what this feels like however she has been treated with Bactrim for this earlier this month. 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 iron deficient anemia - Surgical History Past Surgical History?: Yes Hx Coronary Stent: Yes Hx Open Heart Surgery: No Hx Pacemaker: No Hx Internal Defibrillator: No Hx Cholecystectomy: No Hx Appendectomy: No Hx Breast Surgery: Yes (breast reduction 05/2004) Additional Surgical History: Breast reduction bilateral,excisional surg. for abscess - Social History Smoking Status: Never Smoker Substance Use Type: Marijuana - Medications Home Medications: Home Medications Medication Instructions Recorded Confirmed Last Taken Type Aspirin [Aspirin BABY CHEW TAB] 81 mg PO QDAY #30 tab.chew 06/12/17 11/26/17 11/20/17 10:00 Rx Clopidogrel [Plavix] 75 mg PO QDAY #30 tablet 06/12/17 11/26/17 11/20/17 10:00 Rx Lisinopril 20 mg PO DAILY 10/08/17 11/26/17 11/20/17 10:00 History Insulin Regular, Human [HumuLIN R] 15 unit SQ AC #600 units 10/14/17 11/26/17 11/20/17 18:00 Rx Zolpidem [Ambien] 10 mg PO QHS 11/26/17 11/26/17 Unknown History Detemir (Nf) [Levemir (Nf)] 60 units SUB-Q HS 11/27/17 11/26/17 Unknown History Hydroxychloroquine [Plaquenil] 200 mg PO QDAY tablet 11/28/17 Unknown Rx Lispro Insulin [HumaLOG] 0 unit SUB-Q ACHS units 11/28/17 Unknown Rx Dicyclomine [Bentyl] 10 mg PO BID #20 capsule 09/01/18 Unknown Rx Fluconazole [Diflucan TAB] 150 mg PO ONCE #2 tablet 09/20/18 Unknown Rx metroNIDAZOLE [Flagyl] 500 mg PO Q12HR #20 tab 09/20/18 Unknown Rx Dysuria Exam - Exam General: Vital signs noted. No distress. Alert and acting appropriately. Exam: Yes Moist Mucous Membranes, No CVA Tenderness, No Abdominal Tenderness, No Rigidity or Guarding Labs: Lab Results 09/20/18 09/20/18 Range/Units 05:00 05:25 POC Glucose 135 H (70-105) Urine Color Yellow (Yellow) Urine Turbidity Clear (Clear) Urine pH 5.0 (5.0-7.0) Ur Specific [place] 1.013 (1.003-1.030) Urine Protein <15 mg/dl (Negative) mg/dL Urine Glucose (UA) Neg (Negative) mg/dL Urine Ketones Neg (Negative) mg/dL Urine Blood Neg (Negative) Urine Nitrite Neg (Negative) Urine Bilirubin Neg (Negative) Urine Urobilinogen < 2.0 (<2.0) mg/dL Ur Leukocyte Esterase Neg (Negative) Urine WBC (Auto) 1.0 (0.0-6.0) /HPF Urine RBC (Auto) 4.0 (0.0-6.0) /HPF U Epithel Cells (Auto) 2.0 (0-13.0) /HPF Urine HCG, Qual Negative (Negative) ED Course Vital Signs 09/20/18 04:47 Temperature 98.0 F Pulse Rate 81 Respiratory 18 Rate Blood Pressure 121/86 O2 Sat by Pulse 96 Oximetry ED Medical Decision Making - Medical Decision Making Lab Results 09/20/18 09/20/18 Range/Units 05:00 05:25 POC Glucose 135 H (70-105) Urine Color Yellow (Yellow) Urine Turbidity Clear (Clear) Urine pH 5.0 (5.0-7.0) Ur Specific [place] 1.013 (1.003-1.030) Urine Protein <15 mg/dl (Negative) mg/dL Urine Glucose (UA) Neg (Negative) mg/dL Urine Ketones Neg (Negative) mg/dL Urine Blood Neg (Negative) Urine Nitrite Neg (Negative) Urine Bilirubin Neg (Negative) Urine Urobilinogen < 2.0 (<2.0) mg/dL Ur Leukocyte Esterase Neg (Negative) Urine WBC (Auto) 1.0 (0.0-6.0) /HPF Urine RBC (Auto) 4.0 (0.0-6.0) /HPF U Epithel Cells (Auto) 2.0 (0-13.0) /HPF Urine HCG, Qual Negative (Negative) Vital Signs 09/20/18 04:47 Temperature 98.0 F Pulse Rate 81 Respiratory 18 Rate Blood Pressure 121/86 O2 Sat by Pulse 96 Oximetry Patient was given a Diflucan of [place] but had no improvement. Patient was recently treated with Bactrim and is still continued to have symptoms. Refer to EMR from the previous workups done here in the emergency room. I have discussed with patient the role her diabetes and the result of stress w ith play and some of her symptoms. She states that she is compliant with her diabetic meds and that she is getting them of [facility]. 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 VSS no fever. ambulatory. taking po. no abd pain. no cva tenderness. non toxic with stable VS. Critical care attestation.: If time is entered above; I have spent that time in minutes in the direct care of this critically ill patient, excluding procedure time. ED Disposition Clinical Impression: Psychiatric disorder, Diabetes mellitus, Vaginitis Disposition: - TO HOME OR SELFCARE Is pt being admited?: No Does the pt Need Aspirin: No Condition: Stable Instructions: Vaginitis (ED), Diabetes Mellitus Type 2 in Adults (ED) Additional Instructions: HYDRATE WELL WITH WATER SAFE SEX MEDS ORDERED DIABETIC DIET MAINTAIN BLOOD SUGARS [facility] SHOULD HAVE MEDICAL DOCTOR EVALUATE YOUR DM FOR ITS PLAYING A ROLE IN YOUR SYMPTOMS. TAKE DAILY MEDS PER ROUTINE THIS MONTH: STD PANEL NORMAL WET PREP NORMAL TREATED TWICE FOR UTI--- TODAY URINE IS NEG FOR UTI PREG NEG SERUM LABS ALL NORMAL Referrals: ELIAZAR VALDEZ MD [Staff Physician] - 3-5 Days Time of Disposition: 07:57
[2018-09-20 09:38] VITALS: BP 132/82
== END 2018-09-20 09:15 | disposition home or self-care (01) ==
LOC: ED 04:44
DX: N76.0 Acute vaginitis (principal); E11.9 Type 2 diabetes mellitus without complications; I10 Essential (primary) hypertension; I25.2 Old myocardial infarction; F31.9 Bipolar disorder, unspecified; F25.9 Schizoaffective disorder, unspecified; F12.10 Cannabis abuse, uncomplicated; Z86.2 Personal history of diseases of the blood and blood-forming organs and certain disorders involving the immune mechanism; Z95.5 Presence of coronary angioplasty implant and graft; Z79.899 Other long term (current) drug therapy; Z88.6 Allergy status to analgesic agent; Z91.012 Allergy to eggs; Z88.1 Allergy status to other antibiotic agents
CPT/HCPCS: 81001; 81025; 82962; 99283

== ENCOUNTER 2018-11-06 19:43 | Emergency (ER) | payer MEDICARE ==
[2018-11-06 20:26] VITALS: BP 122/74
--- NOTE | 2018-11-06 20:29 | Event Note ---
ED Screening Note Date of service: 11/06/18 Time: 20:18 ED Screening Note: 38 y/o female comes in for toothache. Patient reports that she had oral surgery 2 weeks ago and has been place on abx before surgery and is currently on abx and pain medication. Patient reports that she does not want to be followed up with her oral surgeon but she has maxed her dental benefits. She has been on Clinda, amox and is currently on Amox. This initial assessment/diagnostic orders/clinical plan/treatment(s) is/are subject to change based on patients health status, clinical progression and re- assessment by fellow clinical providers in the ED. Further treatment and workup at subsequent clinical providers discretion. Patient/guardian urged not to elope from the ED as their condition may be serious if not clinically assessed and managed. Initial orders include:
[2018-11-06] MEDS ORDERED: NORCO 5/325 PO ONE (22:05)
--- NOTE | 2018-11-06 22:14 | Emergency Department Report ---
HPI - General Chief Complaint: Dental/Oral Time Seen by Provider: 11/06/18 20:17 - HPI HPI: Room 29 The patient is a 38-year-old female presenting with a chief complaint of tooth extraction pain. The patient states she had a dental extraction of teeth #17 and 18 approximately 2 weeks ago. The patient states she continued to have persistent pain despite ibuprofen, lidocaine and meloxicam. The patient states she followed up with her dentist approximately one week ago was switched from penicillin to amoxicillin however her pain persists. The patient states 2 days ago she noted a discharge of blood and pus coming from the extraction site. Patient states her MAXIMUM TEMPERATURE was 99F. Patient gets her pain score of 9/10. 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 iron deficient anemia - Surgical History Past Surgical History?: Yes Hx Coronary Stent: Yes Hx Breast Surgery: Yes (breast reduction 05/2004) Additional Surgical History: Breast reduction bilateral,excisional surg. for abscess - Family History Family history: no significant - Social History Smoking Status: Current Every Day Smoker (1 pack per day) Substance Use Type: Marijuana - Medications Home Medications: Home Medications Medication Instructions Recorded Confirmed Last Taken Type Aspirin [Aspirin BABY CHEW TAB] 81 mg PO QDAY #30 tab.chew 06/12/17 11/26/17 11/20/17 10:00 Rx Clopidogrel [Plavix] 75 mg PO QDAY #30 tablet 06/12/17 11/26/17 11/20/17 10:00 Rx Lisinopril 20 mg PO DAILY 10/08/17 11/26/17 11/20/17 10:00 History Insulin Regular, Human [HumuLIN R] 15 unit SQ AC #600 units 10/14/17 11/26/17 11/20/17 18:00 Rx Zolpidem [Ambien] 10 mg PO QHS 11/26/17 11/26/17 Unknown History Detemir (Nf) [Levemir (Nf)] 60 units SUB-Q HS 11/27/17 11/26/17 Unknown History Hydroxychloroquine [Plaquenil] 200 mg PO QDAY tablet 11/28/17 Unknown Rx Lispro Insulin [HumaLOG] 0 unit SUB-Q ACHS units 11/28/17 Unknown Rx Dicyclomine [Bentyl] 10 mg PO BID #20 capsule 09/01/18 Unknown Rx Fluconazole [Diflucan TAB] 150 mg PO ONCE #2 tablet 09/20/18 Unknown Rx metroNIDAZOLE [Flagyl] 500 mg PO Q12HR #20 tab 09/20/18 Unknown Rx Clindamycin [Clindamycin CAP] 300 mg PO Q6H #21 capsule 11/06/18 Unknown Rx HYDROcodone/APAP 5-325 [[place] 1 - 2 each PO Q6HR PRN #14 tablet 11/06/18 Unknown Rx 5/325] Ibuprofen [Motrin 800 MG tab] 800 mg PO Q8HR PRN #20 tablet 11/06/18 Unknown Rx ED Review of Systems ROS: Stated complaint: TOOTHACHE Other details as noted in HPI Constitutional: denies: fever Eyes: denies: eye pain ENT: dental pain Respiratory: no symptoms reported Cardiovascular: denies: chest pain Endocrine: no symptoms reported Genitourinary: denies: dysuria Neurological: denies: headache Physical Exam - Physical Exam Vital Signs: Vital Signs 11/06/18 20:16 Temperature 97.9 F Pulse Rate 85 Respiratory 16 Rate Blood Pressure 122/74 O2 Sat by Pulse 100 Oximetry Physical Exam: GENERAL: The patient is well-developed well-nourished female sitting in chair n ot appearing to be in acute distress. [] HEENT: Normocephalic. Atraumatic. Extraocular motions are intact. Evidence of dental extraction location of tooth #17 and 18. No active discharge visualize d. No gingival erythema or edema appreciated NECK: Supple. Trachea midline CHEST/LUNGS: There is no respiratory distress noted. SKIN: There is no diaphoresis. NEURO: The patient is awake, alert, and oriented. The patient is cooperative. The patient has normal speech and gait. MUSCULOSKELETAL: There is no evidence of acute injury. ED Course Vital Signs 11/06/18 20:16 Temperature 97.9 F Pulse Rate 85 Respiratory 16 Rate Blood Pressure 122/74 O2 Sat by Pulse 100 Oximetry - Reevaluation(s) Reevaluation #1: 11/06/18 22:20 Accu-Chek 90 ED Medical Decision Making - Differential Diagnosis dry socket, tooth extraction pain Critical care attestation.: If time is entered above; I have spent that time in minutes in the direct care of this critically ill patient, excluding procedure time. ED Disposition Clinical Impression: Pain of tooth socket Disposition: TO HOME OR SELFCARE Is pt being admited?: No Does the pt Need Aspirin: No Condition: Stable Instructions: Dry Socket (ED) Additional Instructions: Return to the emergency department immediately should you develop worsening symptoms, fever, inability to tolerate food or liquid or any other concerns. Prescriptions: Clindamycin [Clindamycin CAP] 300 mg PO Q6H #21 capsule Ibuprofen [Motrin 800 MG tab] 800 mg PO Q8HR PRN #20 tablet PRN Reason: Pain, Moderate (4-6) HYDROcodone/APAP 5-325 [[place] 5/325] 1 - 2 each PO Q6HR PRN #14 tablet PRN Reason: Pain Referrals: GUILLERMO ANTHONY MD [Primary Care Provider] - 3-5 Days [facility] [Outside] - 3-5 Days Forms: AMA Form Time of Disposition: 22:19
== END 2018-11-06 22:25 | disposition home or self-care (01) ==
LOC: ED 19:43
DX: K08.89 Other specified disorders of teeth and supporting structures (principal); R50.9 Fever, unspecified; I10 Essential (primary) hypertension; I25.2 Old myocardial infarction; E11.9 Type 2 diabetes mellitus without complications; F31.9 Bipolar disorder, unspecified; F17.210 Nicotine dependence, cigarettes, uncomplicated; F12.10 Cannabis abuse, uncomplicated; Z79.4 Long term (current) use of insulin; Z86.2 Personal history of diseases of the blood and blood-forming organs and certain disorders involving the immune mechanism; Z90.49 Acquired absence of other specified parts of digestive tract; Z79.899 Other long term (current) drug therapy; Z88.1 Allergy status to other antibiotic agents; Z88.6 Allergy status to analgesic agent; Z91.012 Allergy to eggs
CPT/HCPCS: 82962; 99283

== ENCOUNTER 2018-11-19 07:22 | Emergency (ER) | payer MEDICARE ==
[2018-11-19 07:39] VITALS: BP 168/90
--- NOTE | 2018-11-19 08:44 | Emergency Department Report ---
Chief Complaint: Dental/Oral Stated Complaint: TOOTHACHE Time Seen by Provider: 11/19/18 08:19 - HPI History of Present Illness: Mrs. Riley presents with dental pain after extractions of 2 teeth in the left molar region. She was treated by an oral surgeon in [place], [place]. She since been been referred to dental clinic at [place]. She has appointment within the next week and a half. She's had persistent pain for the past month. She also felt swelling. No evidence of infection on my brief exam. I have referred her to outpatient clinic. Also encouraged ibuprofen [id number]. She states this medication does not work. She has multiple specialists and primary care physician. I have recommended that she contact her primary care physician for optimal pain management. Medical screening exam was performed. Presently no acute emergent condition exists which requires further evaluation or treatment. - Exam Vital Signs: Vital Signs 11/19/18 07:38 Temperature 98.5 F Pulse Rate 98 H Respiratory 17 Rate Blood Pressure 168/90 O2 Sat by Pulse 100 Oximetry MSE screening note: Focused history and physical exam performed. Due to findings the following was ordered: ED Disposition for MSE Clinical Impression: Pain of tooth socket Disposition: Z-07 MED SCREENING EXAM-LEFT Is pt being admited?: No Does the pt Need Aspirin: No Condition: Stable
== END 2018-11-19 09:02 | disposition left against medical advice (07) ==
LOC: ED 07:22
DX: K08.89 Other specified disorders of teeth and supporting structures (principal); Z91.012 Allergy to eggs; Z88.1 Allergy status to other antibiotic agents; Z88.5 Allergy status to narcotic agent
CPT/HCPCS: 99282

== ENCOUNTER 2018-11-25 06:31 | Emergency (ER) | payer MEDICARE ==
[2018-11-25 07:01] VITALS: BP 149/86
[2018-11-25 07:31] LABS: Basophils % (Auto) 0.5 % (0.0-1.8); Eosinophils # (Auto) 0.1 K/mm3 (0.0-0.4); Eosinophils % (Auto) 1.7 % (0.0-4.3); Hematocrit 35.9 % (30.3-42.9); Hemoglobin 11.5 gm/dl (10.1-14.3); Lymphocytes # (Auto) 1.9 K/mm3 (1.2-5.4); Lymphocytes % (Auto) 24.3 % (13.4-35.0); Mean Corpuscular HGB Conc 32 % (30-34); Mean Corpuscular Volume 71 fl (79-97); Monocytes # (Auto) 0.5 K/mm3 (0.0-0.8); Monocytes % (Auto) 6.8 % (0.0-7.3); Platelet Count 228 K/mm3 (140-440); Red Blood Count 5.04 M/mm3 (3.65-5.03); Red Cell Distribution Width 19.5 % (13.2-15.2)
--- NOTE | 2018-11-25 07:48 | Emergency Department Report ---
<KEYSHAWN THOMAS - Last Filed: 11/25/18 18:19> ED Abdominal Pain HPI - General Chief Complaint: Abdominal Pain Stated Complaint: ABD PAIN/NAUSEA/DIARRHEA Time Seen by Provider: 11/25/18 07:22 Source: patient Mode of arrival: Ambulatory Limitations: No Limitations - History of Present Illness Initial Comments: This is a 38-year-old female who presents to the ED complaining epigastric upper abdominal pain. Several months now. Patient states she was just in to see a rehabilitation aide and currently bleeding on the results back from the rehabilitation aide. Patient states she is waiting to get an endoscopy done. Patient states gastrologist is out of [place]. Patient states abdominal pain is localized to her epigastric region. Patient states she's also been experiencing nausea vomiting and diarrhea for the past 2 weeks. Patient states that she's been on Bentyl and several other medications with no relief. Patient denies fever, MD Complaint: abdominal pain -: Gradual, month(s) Location: epigastric Radiation: none Migration to: no migration Severity scale (0 -10): 5 Consistency: intermittent Associated Symptoms: nausea, vomiting, diarrhea. denies: fever, constipation, dysuria - Related Data Home Medications Medication Instructions Recorded Confirmed Last Taken Lisinopril 20 mg PO DAILY 10/08/17 11/26/17 11/20/17 10:00 Zolpidem [Ambien] 10 mg PO QHS 11/26/17 11/26/17 Unknown Detemir (Nf) [Levemir (Nf)] 60 units SUB-Q HS 11/27/17 11/26/17 Unknown Previous Rx's Medication Instructions Recorded Last Taken Type Aspirin [Aspirin BABY CHEW TAB] 81 mg PO QDAY #30 tab.chew 06/12/17 11/20/17 10:00 Rx Clopidogrel [Plavix] 75 mg PO QDAY #30 tablet 06/12/17 11/20/17 10:00 Rx Insulin Regular, Human [HumuLIN R] 15 unit SQ AC #600 units 10/14/17 11/20/17 18:00 Rx Hydroxychloroquine [Plaquenil] 200 mg PO QDAY tablet 11/28/17 Unknown Rx Lispro Insulin [HumaLOG] 0 unit SUB-Q ACHS units 11/28/17 Unknown Rx Dicyclomine [Bentyl] 10 mg PO BID #20 capsule 09/01/18 Unknown Rx Fluconazole [Diflucan TAB] 150 mg PO ONCE #2 tablet 09/20/18 Unknown Rx metroNIDAZOLE [Flagyl] 500 mg PO Q12HR #20 tab 09/20/18 Unknown Rx Clindamycin [Clindamycin CAP] 300 mg PO Q6H #21 capsule 11/06/18 Unknown Rx HYDROcodone/APAP 5-325 [[place] 1 - 2 each PO Q6HR PRN #14 tablet 11/06/18 Unknown Rx 5/325] Ibuprofen [Motrin 800 MG tab] 800 mg PO Q8HR PRN #20 tablet 11/06/18 Unknown Rx Acetamin/Codeine 120-12Mg/5 ml 5 ml PO TID #50 ml 11/25/18 Unknown Rx [Tylenol/Codeine] Famotidine [Pepcid] 20 mg PO BID #20 tablet 11/25/18 Unknown Rx Allergies Allergy/AdvReac Type Severity Reaction Status Date / Time egg Allergy Hives Verified 09/10/18 14:18 tramadol HCl [From Ultram] Allergy Hives Verified 09/10/18 14:18 vancomycin Allergy Hives Verified 09/10/18 14:18 ED Review of Systems Comment: All other systems reviewed and negative ED Past Medical Hx - Past Medical History Previous Medical History?: Yes Hx Hypertension: Yes Hx CVA: No Hx Heart Attack/AMI: Yes (05/22, cardiac stent x1) Hx Congestive Heart Failure: No Hx Diabetes: Yes Hx Deep Vein Thrombosis: No Hx Pulmonary Embolism: No Hx GERD: No Hx Liver Disease: No Hx Renal Disease: No Hx Sickle Cell Disease: No Hx Arthritis: No Hx Headaches / Migraines: No Hx Seizures: No Hx Kidney Stones: No 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 iron deficient anemia - Surgical History Past Surgical History?: Yes Hx Coronary Stent: Yes Hx Open Heart Surgery: No Hx Pacemaker: No Hx Internal Defibrillator: No Hx Cholecystectomy: No Hx Appendectomy: No Hx Breast Surgery: Yes (breast reduction 05/2004) Additional Surgical History: Breast reduction bilateral,excisional surg. for abscess - Social History Smoking Status: Current Every Day Smoker Substance Use Type: None - Medications Home Medications: Home Medications Medication Instructions Recorded Confirmed Last Taken Type Aspirin [Aspirin BABY CHEW TAB] 81 mg PO QDAY #30 tab.chew 06/12/17 11/26/17 0 11/20/17 10:00 Rx Clopidogrel [Plavix] 75 mg PO QDAY #30 tablet 06/12/17 11/26/17 11/20/17 10:00 Rx Lisinopril 20 mg PO DAILY 10/08/17 11/26/17 11/20/17 10:00 History Insulin Regular, Human [HumuLIN R] 15 unit SQ AC #600 units 10/14/17 11/26/17 11/20/17 18:00 Rx Zolpidem [Ambien] 10 mg PO QHS 11/26/17 11/26/17 Unknown History Detemir (Nf) [Levemir (Nf)] 60 units SUB-Q HS 11/27/17 11/26/17 Unknown History Hydroxychloroquine [Plaquenil] 200 mg PO QDAY tablet 11/28/17 Unknown Rx Lispro Insulin [HumaLOG] 0 unit SUB-Q ACHS units 11/28/17 Unknown Rx Dicyclomine [Bentyl] 10 mg PO BID #20 capsule 09/01/18 Unknown Rx Fluconazole [Diflucan TAB] 150 mg PO ONCE #2 tablet 09/20/18 Unknown Rx metroNIDAZOLE [Flagyl] 500 mg PO Q12HR #20 tab 09/20/18 Unknown Rx Clindamycin [Clindamycin CAP] 300 mg PO Q6H #21 capsule 11/06/18 Unknown Rx HYDROcodone/APAP 5-325 [[place] 1 - 2 each PO Q6HR PRN #14 tablet 11/06/18 Unknown Rx 5/325] Ibuprofen [Motrin 800 MG tab] 800 mg PO Q8HR PRN #20 tablet 11/06/18 Unknown Rx Acetamin/Codeine 120-12Mg/5 ml 5 ml PO TID #50 ml 11/25/18 Unknown Rx [Tylenol/Codeine] Famotidine [Pepcid] 20 mg PO BID #20 tablet 11/25/18 Unknown Rx ED Physical Exam - General Limitations: No Limitations General appearance: alert, in no apparent distress - Head Head exam: Present: atraumatic, normocephalic - Eye Eye exam: Present: normal appearance - ENT ENT exam: Present: mucous membranes moist - Neck Neck exam: Present: normal inspection - Respiratory Respiratory exam: Present: normal lung sounds bilaterally. Absent: respiratory distress - Cardiovascular Cardiovascular Exam: Present: regular rate, normal rhythm. Absent: systolic murmur, diastolic murmur, rubs, gallop - GI/Abdominal GI/Abdominal exam: Present: soft, normal bowel sounds. Absent: distended, tende rness, guarding, mass - Extremities Exam Extremities exam: Present: normal inspection, full ROM - Back Exam Back exam: Present: normal inspection - Neurological Exam Neurological exam: Present: alert, oriented X3 - Psychiatric Psychiatric exam: Present: normal affect, normal mood - Skin Skin exam: Present: warm, dry, intact, normal color. Absent: rash ED Medical Decision Making - Lab Data Result diagrams: 11/25/18 07:10 11/25/18 07:10 - Medical Decision Making This 38-year-old female who presents with abdominal pain of unknown origin. Patient has been worked up by rehabilitation aide and just needs to follow-up. Labs are completed today in the ED, pain medication was given to the patient. Discussed the patient's follow-up with her rehabilitation aide and keep her appointment for the endoscopy. ED Disposition Disposition: DC-01 TO HOME OR SELFCARE Is pt being admited?: No Does the pt Need Aspirin: No Condition: Stable Instructions: Abdominal Pain (ED) Additional Instructions: Make sure to follow up with the primary care physician as discussed. Take all your medications as you've been prescribed. If you have any worsening symptoms or develop new symptoms please return to ED immediately. Prescriptions: Famotidine [Pepcid] 20 mg PO BID #20 tablet Acetamin/Codeine 120-12Mg/5 ml [Tylenol/Codeine] 5 ml PO TID #50 ml Referrals: BO LEVIN [Other] - 3-5 Days Forms: Accompanied Note, Work/School Release Form(ED) Time of Disposition: 09:06 <ALEX SILVA - Last Filed: 11/26/18 17:40> ED Review of Systems ROS: Stated complaint: ABD PAIN/NAUSEA/DIARRHEA Other details as noted in HPI ED Course Vital Signs 11/25/18 06:59 Temperature 98.5 F Pulse Rate 105 H Respiratory 16 Rate Blood Pressure 149/86 O2 Sat by Pulse 99 Oximetry ED Medical Decision Making - Lab Data Result diagrams: 11/25/18 07:10 11/25/18 07:10 Critical care attestation.: If time is entered above; I have spent that time in minutes in the direct care of this critically ill patient, excluding procedure time.
[2018-11-25 07:55] LABS: Alanine Aminotransferase 13 units/L (7-56); Albumin 3.9 g/dL (3.9-5); BUN/Creatinine Ratio 11; Blood Urea Nitrogen 8 mg/dL (7-17); Hemolysis Index 12
[2018-11-25] MEDS ORDERED: TYLENOL/CODEINE ONE (07:59)
[2018-11-25] MEDS ORDERED: TYLENOL/CODEINE PO ONE (08:00)
[2018-11-25 08:27] LABS: Bilirubin,Urine NEG (Negative); Blood,Urine NEG (Negative); Color,Urine Straw (Yellow); Mucus,Urine FEW /HPF; Protein,Urine <15 mg/dL mg/dL (Negative); Urobilinogen,Urine < 2.0 mg/dL (<2.0); WBC,Urine < 1.0 /HPF (0.0-6.0)
== END 2018-11-25 10:21 | disposition home or self-care (01) ==
LOC: ED 06:31
DX: R10.13 Epigastric pain (principal); R11.2 Nausea with vomiting, unspecified; R19.7 Diarrhea, unspecified; I10 Essential (primary) hypertension; I25.2 Old myocardial infarction; E11.9 Type 2 diabetes mellitus without complications; F31.9 Bipolar disorder, unspecified; F20.9 Schizophrenia, unspecified; F17.200 Nicotine dependence, unspecified, uncomplicated; Z95.1 Presence of aortocoronary bypass graft; Z88.6 Allergy status to analgesic agent; Z88.1 Allergy status to other antibiotic agents; Z91.012 Allergy to eggs
CPT/HCPCS: 36415; 80053; 81001; 83690; 84703; 85025; 99283

== ENCOUNTER 2019-03-25 20:45 | Emergency (ER) | payer MEDICARE ==
[2019-03-25 20:55] VITALS: BP 148/89
[2019-03-25] MEDS ORDERED: diphenhydrAMINE 25 MG CAP PO ONE (23:38)
[2019-03-25] MEDS ORDERED: predniSONE 20 MG TAB PO ONE (23:38)
[2019-03-25] MEDS ORDERED: HYDROcodone/ACETAMINOPHEN 5-325 MG TAB PO ONE (23:38)
--- NOTE | 2019-03-26 01:03 | Emergency Department Report ---
ED General Adult HPI - General Chief complaint: Pain General Stated complaint: LUPUS PAIN/NAUSEA/FEVER Time Seen by Provider: 03/25/19 23:24 Source: patient Mode of arrival: Ambulatory Limitations: No Limitations - History of Present Illness Initial comments: Patient is a 39-year-old Afro-[place] female with a history of lupus, who presents for bilateral knee pain. Patient states this is usual lupus for. Treatment NSAIDs steroids when necessary hydrocodone. Patient does have PCP. There are no other symptoms no nausea vomiting no fever no chills. Onset/Timin -: days(s) Location: lower extremity (bilat knee ) Radiation: extremity Severity scale (0 -10): 9 Quality: aching Consistency: constant Improves with: none Worsens with: none Associated Symptoms: denies other symptoms Treatments Prior to Arrival: none - Related Data Home Medications Medication Instructions Recorded Confirmed Last Taken lisinopriL [Lisinopril] 20 mg PO DAILY 10/08/17 11/26/17 11/20/17 10:00 Zolpidem [Ambien] 10 mg PO QHS 11/26/17 11/26/17 Unknown Detemir (Nf) [Levemir (Nf)] 60 units SUB-Q HS 11/27/17 11/26/17 Unknown Previous Rx's Medication Instructions Recorded Last Taken Type Aspirin [Aspirin BABY CHEW TAB] 81 mg PO QDAY #30 tab.chew 06/12/17 11/20/17 10:00 Rx Clopidogrel [Plavix] 75 mg PO QDAY #30 tablet 06/12/17 11/20/17 10:00 Rx Insulin Regular, Human [HumuLIN R] 15 unit SQ AC #600 units 10/14/17 11/20/17 18:00 Rx Hydroxychloroquine [Plaquenil] 200 mg PO QDAY tablet 11/28/17 Unknown Rx Lispro Insulin [HumaLOG] 0 unit SUB-Q ACHS units 11/28/17 Unknown Rx Dicyclomine [Bentyl] 10 mg PO BID #20 capsule 09/01/18 Unknown Rx Fluconazole [Diflucan TAB] 150 mg PO ONCE #2 tablet 09/20/18 Unknown Rx metroNIDAZOLE [Flagyl] 500 mg PO Q12HR #20 tab 09/20/18 Unknown Rx Clindamycin [Clindamycin CAP] 300 mg PO Q6H #21 capsule 11/06/18 Unknown Rx HYDROcodone/APAP 5-325 [[place] 1 - 2 each PO Q6HR PRN #14 tablet 11/06/18 Unknown Rx 5/325] Ibuprofen [Motrin 800 MG tab] 800 mg PO Q8HR PRN #20 tablet 11/06/18 Unknown Rx Acetamin/Codeine 120-12Mg/5 ml 5 ml PO TID #50 ml 11/25/18 Unknown Rx [Tylenol/Codeine] Famotidine [Pepcid] 20 mg PO BID #20 tablet 11/25/18 Unknown Rx Acetaminophen [Acetaminophen TAB] 1,000 mg PO Q6HR PRN #60 tablet 03/26/19 Unknown Rx Ibuprofen [Motrin 800 MG tab] 800 mg PO Q8HR PRN #30 tablet 03/26/19 Unknown Rx predniSONE [Deltasone] 40 mg PO QDAY 5 Days #10 tab 03/26/19 Unknown Rx Allergies Allergy/AdvReac Type Severity Reaction Status Date / Time egg Allergy Hives Verified 09/10/18 14:18 tramadol HCl [From Ultram] Allergy Hives Verified 09/10/18 14:18 vancomycin Allergy Hives Verified 09/10/18 14:18 ED Review of Systems ROS: Stated complaint: LUPUS PAIN/NAUSEA/FEVER Other details as noted in HPI Constitutional: denies: chills, fever Eyes: denies: eye pain, eye discharge, vision change ENT: denies: ear pain, throat pain Respiratory: denies: cough, shortness of breath, wheezing Cardiovascular: denies: chest pain, palpitations Endocrine: no symptoms reported Gastrointestinal: denies: abdominal pain, nausea, diarrhea Genitourinary: denies: urgency, dysuria, discharge Musculoskeletal: joint swelling (bilat knee ), arthralgia. 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 iron deficient anemia - Surgical History Hx Coronary Stent: Yes Hx Open Heart Surgery: No Hx Pacemaker: No Hx Internal Defibrillator: No Hx Cholecystectomy: No Hx Appendectomy: No Hx Breast Surgery: Yes (breast reduction 05/2004) Additional Surgical History: Breast reduction bilateral,excisional surg. for abscess - Social History Smoking Status: Never Smoker Substance Use Type: None - Medications Home Medications: Home Medications Medication Instructions Recorded Confirmed Last Taken Type Aspirin [Aspirin BABY CHEW TAB] 81 mg PO QDAY #30 tab.chew 06/12/17 11/26/17 11/20/17 10:00 Rx Clopidogrel [Plavix] 75 mg PO QDAY #30 tablet 06/12/17 11/26/17 11/20/17 10:00 R x lisinopriL [Lisinopril] 20 mg PO DAILY 10/08/17 11/26/17 11/20/17 10:00 History Insulin Regular, Human [HumuLIN R] 15 unit SQ AC #600 units 10/14/17 11/26/17 11/20/17 18:00 Rx Zolpidem [Ambien] 10 mg PO QHS 11/26/17 11/26/17 Unknown History Detemir (Nf) [Levemir (Nf)] 60 units SUB-Q HS 11/27/17 11/26/17 Unknown History Hydroxychloroquine [Plaquenil] 200 mg PO QDAY tablet 11/28/17 Unknown Rx Lispro Insulin [HumaLOG] 0 unit SUB-Q ACHS units 11/28/17 Unknown Rx Dicyclomine [Bentyl] 10 mg PO BID #20 capsule 09/01/18 Unknown Rx Fluconazole [Diflucan TAB] 150 mg PO ONCE #2 tablet 09/20/18 Unknown Rx metroNIDAZOLE [Flagyl] 500 mg PO Q12HR #20 tab 09/20/18 Unknown Rx Clindamycin [Clindamycin CAP] 300 mg PO Q6H #21 capsule 11/06/18 Unknown Rx HYDROcodone/APAP 5-325 [[place] 1 - 2 each PO Q6HR PRN #14 tablet 11/06/18 Unknown Rx 5/325] Ibuprofen [Motrin 800 MG tab] 800 mg PO Q8HR PRN #20 tablet 11/06/18 Unknown Rx Acetamin/Codeine 120-12Mg/5 ml 5 ml PO TID #50 ml 11/25/18 Unknown Rx [Tylenol/Codeine] Famotidine [Pepcid] 20 mg PO BID #20 tablet 11/25/18 Unknown Rx Acetaminophen [Acetaminophen TAB] 1,000 mg PO Q6HR PRN #60 tablet 03/26/19 U nknown Rx Ibuprofen [Motrin 800 MG tab] 800 mg PO Q8HR PRN #30 tablet 03/26/19 Unknown Rx predniSONE [Deltasone] 40 mg PO QDAY 5 Days #10 tab 03/26/19 Unknown Rx ED Physical Exam - General Limitations: No Limitations (all) General appearance: alert, in no apparent distress - Head Head exam: Present: atraumatic, normocephalic - Eye Eye exam: Present: normal appearance, PERRL, EOMI Pupils: Present: normal accommodation - ENT ENT exam: Present: mucous membranes moist - Neck Neck exam: Present: normal inspection, full ROM - Respiratory Respiratory exam: Present: normal lung sounds bilaterally, chest wall tenderness. Absent: respiratory distress, wheezes, stridor - Cardiovascular Cardiovascular Exam: Present: regular rate, normal rhythm, normal heart sounds. Absent: systolic murmur, diastolic murmur, rubs, gallop - GI/Abdominal GI/Abdominal exam: Present: soft, normal bowel sounds. Absent: distended, tenderness, bruit, hernia - Rectal Rectal exam: Present: deferred - Extremities Exam Extremities exam: Present: normal inspection, full ROM, normal capillary refill. Absent: tenderness, pedal edema - Back Exam Back exam: Present: normal inspection, full ROM, muscle spasm. Absent: tenderness, CVA tenderness (R), CVA tenderness (L), paraspinal tenderness, vertebral tenderness, rash noted - Neurological Exam Neurological exam: Present: alert, oriented X3, CN II-XII intact, normal gait, reflexes normal. Absent: motor sensory deficit - Psychiatric Psychiatric exam: Present: normal affect, normal mood - Skin Skin exam: Present: warm, dry, intact, normal color. Absent: rash ED Course Vital Signs 12/22/19 12/22/19 20:49 21:13 Temperature 98.4 F 98.4 F Pulse Rate 69 74 Respiratory 18 18 Rate Blood Pressure 148/89 148/89 O2 Sat by Pulse 100 100 Oximetry ED Medical Decision Making - Medical Decision Making Symptoms are improved, plan DC'd home with prednisone, ibuprofen, Tylenol 3 when necessary breakthrough plain, following rheumatology in 2-3 days. Patient verbalized agreement and understanding of discharge plan patient is DC'd home stable condition at this time Critical care attestation.: If time is entered above; I have spent that time in minutes in the direct care of this critically ill patient, excluding procedure time. ED Disposition Clinical Impression: Arthralgia Qualifiers: Joint pain location: knee Laterality: bilateral Qualified Code(s): M25.561 - Pain in right knee; M25.562 - Pain in left knee Disposition: DC-01 TO HOME OR SELFCARE Is pt being admited?: No Does the pt Need Aspirin: No Condition: Stable Instructions: Knee Pain (ED), Arthralgia (ED) Prescriptions: Acetaminophen [Acetaminophen TAB] 1,000 mg PO Q6HR PRN #60 tablet PRN Reason: Pain , Severe (7-10) predniSONE [Deltasone] 40 mg PO QDAY 5 Days #10 tab Ibuprofen [Motrin 800 MG tab] 800 mg PO Q8HR PRN #30 tablet PRN Reason: pain Referrals: ALMA AMARO MD [Staff Physician] - 3-5 Days Forms: Work/School Release Form(ED) Time of Disposition: 01:12
== END 2019-03-26 01:34 | disposition home or self-care (01) ==
LOC: ED 20:45
DX: M25.562 Pain in left knee (principal); M25.561 Pain in right knee; I10 Essential (primary) hypertension; E11.9 Type 2 diabetes mellitus without complications; F31.9 Bipolar disorder, unspecified; Z98.890 Other specified postprocedural states; Z79.1 Long term (current) use of non-steroidal anti-inflammatories (NSAID); Z79.899 Other long term (current) drug therapy; Z91.012 Allergy to eggs; Z88.8 Allergy status to other drugs, medicaments and biological substances
CPT/HCPCS: 99282; J7512

== ENCOUNTER 2019-03-26 15:43 | Emergency (ER) | payer MEDICARE ==
--- NOTE | 2019-03-26 19:33 | Event Note ---
ED Screening Note Date of service: 03/26/19 Time: 19:31 ED Screening Note: Pt complains of lupus flare with joint pain, perianal and groin abscesses x 4 days states fever of 100seen here yesterday for the same This initial assessment/diagnostic orders/clinical plan/treatment(s) is/are subject to change based on patients health status, clinical progression and re- assessment by fellow clinical providers in the ED. Further treatment and workup at subsequent clinical providers discretion. Patient/guardian urged not to elope from the ED as their condition may be serious if not clinically assessed and managed. Initial orders include: labs
[2019-03-26 20:49] LABS: BUN/Creatinine Ratio 16; Blood Urea Nitrogen 11 mg/dL (7-17); Calcium 9.4 mg/dL (8.4-10.2); Hemolysis Index 60
[2019-03-26 20:55] LABS: Hematocrit 36.5 % (30.3-42.9); Hemoglobin 11.6 gm/dl (10.1-14.3); Mean Corpuscular HGB Conc 32 % (30-34); Mean Corpuscular Volume 76 fl (79-97); Red Blood Count 4.82 M/mm3 (3.65-5.03); Red Cell Distribution Width 17.8 % (13.2-15.2)
[2019-03-26 20:56] LABS: Platelet Count 267 K/mm3 (140-440)
[2019-03-26 21:27] LABS: Basophils % (Manual) 0 % (0.0-1.8); Eosinophils % (Manual) 0 % (0.0-4.3); Total Cells Counted 100
[2019-03-26 21:29] LABS: Anisocytosis 1+; Large Platelets Few; Platelet Estimate Consistent w Auto
[2019-03-27] MEDS ORDERED: SODIUM CHLORIDE 0.9% 1000 ML 1,000 ML IV ONE ×2 (06:37→09:04)
--- NOTE | 2019-03-27 08:56 | Emergency Department Report ---
ED General Adult HPI - General Chief complaint: Urogenital-Female Stated complaint: LUPUS FALRE UP Time Seen by Provider: 03/26/19 19:30 Source: patient Mode of arrival: Ambulatory Limitations: No Limitations - History of Present Illness Initial comments: This is a 39 year old female with fairly extensive medical history. She was seen by a mid-level provider yesterday. She was diagnosed with lupus flare. Patient states that she has been ill for the past 2 days. She believes she has had a "low-grade fever". 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 She has a history of MRSA infection last treated about 4 years ago. She has not been on antibiotics nor diagnosed with a recent serious bacterial illness. She is an insulin-dependent diabetic. She's had extensive perianal and sacral surgery for hidradenitis. She has had no recent surgical procedure. She does not complain of shortness of breath. She has had some nonproductive cough. She complains of diffuse joint aching. -: Gradual, days(s) Location: lower extremity Severity scale (0 -10): 3 Quality: aching Consistency: intermittent Improves with: none Worsens with: none Associated Symptoms: denies other symptoms (except as above. No documented fever or chills but feels like she had a low-grade fever.) - Related Data Home Medications Medication Instructions Recorded Confirmed Last Taken lisinopriL [Lisinopril] 20 mg PO DAILY 10/08/17 11/26/17 11/20/17 10:00 Zolpidem [Ambien] 10 mg PO QHS 11/26/17 11/26/17 Unknown Detemir (Nf) [Levemir (Nf)] 60 units SUB-Q HS 11/27/17 11/26/17 Unknown Previous Rx's Medication Instructions Recorded Last Taken Type Aspirin [Aspirin BABY CHEW TAB] 81 mg PO QDAY #30 tab.chew 06/12/17 11/20/17 10:00 Rx Clopidogrel [Plavix] 75 mg PO QDAY #30 tablet 06/12/17 11/20/17 10:00 Rx Insulin Regular, Human [HumuLIN R] 15 unit SQ AC #600 units 10/14/17 11/20/17 18:00 Rx Hydroxychloroquine [Plaquenil] 200 mg PO QDAY tablet 08/27/18 Unknown Rx Lispro Insulin [HumaLOG] 0 unit SUB-Q ACHS units 11/28/17 Unknown Rx Dicyclomine [Bentyl] 10 mg PO BID #20 capsule 09/01/18 Unknown Rx Fluconazole [Diflucan TAB] 150 mg PO ONCE #2 tablet 09/20/18 Unknown Rx metroNIDAZOLE [Flagyl] 500 mg PO Q12HR #20 tab 09/20/18 Unknown Rx Clindamycin [Clindamycin CAP] 300 mg PO Q6H #21 capsule 11/06/18 Unknown Rx HYDROcodone/APAP 5-325 [[place] 1 - 2 each PO Q6HR PRN #14 tablet 11/06/18 Unknown Rx 5/325] Ibuprofen [Motrin 800 MG tab] 800 mg PO Q8HR PRN #20 tablet 11/06/18 Unknown Rx Acetamin/Codeine 120-12Mg/5 ml 5 ml PO TID #50 ml 11/25/18 Unknown Rx [Tylenol/Codeine] Famotidine [Pepcid] 20 mg PO BID #20 tablet 11/25/18 Unknown Rx Acetaminophen [Acetaminophen TAB] 1,000 mg PO Q6HR PRN #60 tablet 03/26/19 Unknown Rx Ibuprofen [Motrin 800 MG tab] 800 mg PO Q8HR PRN #30 tablet 03/26/19 Unknown Rx predniSONE [Deltasone] 40 mg PO QDAY 5 Days #10 tab 03/26/19 Unknown Rx HYDROcodone/APAP 5-325 [[place] 1 each PO Q6HR PRN #7 tablet 03/27/19 Unknown Rx 5/325] Allergies Allergy/AdvReac Type Severity Reaction Status Date / Time egg Allergy Hives Verified 09/10/18 14:18 tramadol HCl [From Ultram] Allergy Hives Verified 09/10/18 14:18 vancomycin Allergy Hives Verified 09/10/18 14:18 ED Review of Systems ROS: Stated complaint: LUPUS FALRE UP Other details as noted in HPI Constitutional: denies: chills, fever Eyes: denies: eye pain, eye discharge, vision change ENT: denies: ear pain, throat pain Respiratory: cough. denies: shortness of breath, wheezing Cardiovascular: denies: chest pain, palpitations Endocrine: no symptoms reported Gastrointestinal: other ("drainage from the fistula".). denies: abdominal pain, nausea, diarrhea Genitourinary: denies: urgency, dysuria, discharge Musculoskeletal: as per HPI, arthralgia. denies: back pain, joint swelling Skin: denies: rash, lesions Neurological: denies: headache, weakness, paresthesias Psychiatric: denies: anxiety, depression Hematological/Lymphatic: denies: easy bleeding, easy bruising ED Past Medical Hx - Past Medical History Hx Hypertension: Yes Hx CVA: No Hx Heart Attack/AMI: Yes (05/22, cardiac stent x1) Hx Congestive Heart Failure: No Hx Diabetes: Yes (type 2) Hx Deep Vein Thrombosis: No Hx Pulmonary Embolism: No Hx GERD: No Hx Liver Disease: No Hx Renal Disease: No Hx Sickle Cell Disease: No Hx Arthritis: No Hx Headaches / Migraines: No Hx Seizures: No Hx Kidney Stones: No 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 iron deficient anemia - Surgical History Past Surgical History?: Yes Hx Coronary Stent: Yes Hx Open Heart Surgery: No Hx Pacemaker: No Hx Internal Defibrillator: No Hx Cholecystectomy: No Hx Appendectomy: No Hx Breast Surgery: Yes (breast reduction 05/2004) Additional Surgical History: Breast reduction bilateral,excisional surg. for abscess - Social History Smoking Status: Never Smoker Substance Use Type: Marijuana - Medications Home Medications: Home Medications Medication Instructions Recorded Confirmed Last Taken Type Aspirin [Aspirin BABY CHEW TAB] 81 mg PO QDAY #30 tab.chew 06/12/17 11/26/17 11/20/17 10:00 Rx Clopidogrel [Plavix] 75 mg PO QDAY #30 tablet 06/12/17 11/26/17 11/20/17 10:00 Rx lisinopriL [Lisinopril] 20 mg PO DAILY 10/08/17 11/26/17 11/20/17 10:00 History Insulin Regular, Human [HumuLIN R] 15 unit SQ AC #600 units 10/14/17 11/26/17 11/20/17 18:00 Rx Zolpidem [Ambien] 10 mg PO QHS 11/26/17 11/26/17 Unknown History Detemir (Nf) [Levemir (Nf)] 60 units SUB-Q HS 11/27/17 11/26/17 Unknown History Hydroxychloroquine [Plaquenil] 200 mg PO QDAY tablet 11/28/17 Unknown Rx Lispro Insulin [HumaLOG] 0 unit SUB-Q ACHS units 11/28/17 Unknown Rx Dicyclomine [Bentyl] 10 mg PO BID #20 capsule 09/01/18 Unknown Rx Fluconazole [Diflucan TAB] 150 mg PO ONCE #2 tablet 09/20/18 Unknown Rx metroNIDAZOLE [Flagyl] 500 mg PO Q12HR #20 tab 09/20/18 Unknown Rx Clindamycin [Clindamycin CAP] 300 mg PO Q6H #21 capsule 11/06/18 Unknown Rx HYDROcodone/APAP 5-325 [[place] 1 - 2 each PO Q6HR PRN #14 tablet 11/06/18 Unknown Rx 5/325] Ibuprofen [Motrin 800 MG tab] 800 mg PO Q8HR PRN #20 tablet 11/06/18 Unknown Rx Acetamin/Codeine 120-12Mg/5 ml 5 ml PO TID #50 ml 11/25/18 Unknown Rx [Tylenol/Codeine] Famotidine [Pepcid] 20 mg PO BID #20 tablet 11/25/18 Unknown Rx Acetaminophen [Acetaminophen TAB] 1,000 mg PO Q6HR PRN #60 tablet 03/26/19 Unknown Rx Ibuprofen [Motrin 800 MG tab] 800 mg PO Q8HR PRN #30 tablet 03/26/19 Unknown Rx predniSONE [Deltasone] 40 mg PO QDAY 5 Days #10 tab 03/26/19 Unknown Rx HYDROcodone/APAP 5-325 [[place] 1 each PO Q6HR PRN #7 tablet 03/27/19 Unknown Rx 5/325] ED Physical Exam - General Limitations: No Limitations General appearance: alert, in no apparent distress - Head Head exam: Present: atraumatic, normocephalic - Eye Eye exam: Present: normal appearance, PERRL, EOMI. Absent: scleral icterus - ENT ENT exam: Present: mucous membranes moist - Neck Neck exam: Present: normal inspection - Respiratory Respiratory exam: Present: normal lung sounds bilaterally. Absent: respiratory distress - Cardiovascular Cardiovascular Exam: Present: regular rate, normal rhythm. Absent: systolic murmur, diastolic murmur, rubs, gallop - GI/Abdominal GI/Abdominal exam: Present: soft, normal bowel sounds. Absent: distended, tenderness, guarding, rebound, rigid - Rectal Rectal exam: Present: other (no signs of perianal or perirectal abscess. No obvious signs of infection.). Absent: mass, tenderness - Extremities Exam Extremities exam: Present: normal inspection - Back Exam Back exam: Present: other (extensive postoperative site sacrum. Fistula noted in the pilonidal area. I do not see any drainage.) - Neurological Exam Neurological exam: Present: alert, oriented X3, CN II-XII intact. Absent: motor sensory deficit - Psychiatric Psychiatric exam: Present: normal affect, normal mood - Skin Skin exam: Present: warm, dry, intact, normal color. Absent: rash ED Course Vital Signs 03/26/19 03/27/19 03/27/19 19:31 04:50 09:39 Temperature 99.4 F 98.6 F Pulse Rate 83 62 61 Respiratory 20 16 18 Rate Blood Pressure 113/87 Blood Pressure 141/78 161/83 [Left] O2 Sat by Pulse 100 100 99 Oximetry 03/27/19 12:00 Temperature Pulse Rate 71 Respiratory 17 Rate Blood Pressure Blood Pressure 134/83 [Left] O2 Sat by Pulse 96 Oximetry - Reevaluation(s) Reevaluation #1: Patient's labs were repeated. Her anion gap is normal and her CO2 has improved. She is now asymptomatic. She's had no signs of SIRS. Maybe she is having a lupus flare. She was very placed on prednisone. She is appropriate for outpatient management. 03/27/19 13:59 ED Medical Decision Making - Lab Data Result diagrams: 03/26/19 20:00 03/27/19 12:19 Laboratory Results - last 24 hr 03/26/19 03/26/19 03/26/19 20:00 20:00 20:00 WBC 16.1 H RBC 4.82 Hgb 11.6 Hct 36.5 MCV 76 L MCH 24 L MCHC 32 RDW 17.8 H Plt Count 267 Lymph # Effervescent Salts Compounder Add Manual Diff Complete Total Counted 100 Seg Neuts % (Manual) 64.0 Band Neutrophils % 0 Lymphocytes % (Manual) 32.0 Reactive Lymphs % (Man) 0 Monocytes % (Manual) 4.0 Eosinophils % (Manual) 0 Basophils % (Manual) 0 Metamyelocytes % 0 Myelocytes % 0 Promyelocytes % 0 Blast Cells % 0 Nucleated RBC % Not Reportable Seg Neutrophils # Man 10.3 H Band Neutrophils # 0.0 Lymphocytes # (Manual) 5.2 Abs React Lymphs (Man) 0.0 Monocytes # (Manual) 0.6 Eosinophils # (Manual) 0.0 Basophils # (Manual) 0.0 Metamyelocytes # 0.0 Myelocytes # 0.0 Promyelocytes # 0.0 Blast Cells # 0.0 WBC Morphology Not Reportable Hypersegmented Neuts Not Reportable Hyposegmented Neuts Not Reportable Hypogranular Neuts Not Reportable Smudge Cells Not Reportable Toxic Granulation Not Reportable Toxic Vacuolation Not Reportable Dohle Bodies Not Reportable Pelger-Huet Anomaly Not Reportable Hugo Rods Not Reportable Platelet Estimate Consistent w auto Clumped Platelets Not Reportable Plt Clumps, EDTA Not Reportable Large Platelets Few Giant Platelets Not Reportable Platelet Satelliting Not Reportable Plt Morphology Comment Not Reportable RBC Morphology Not Reportable Dimorphic RBCs Not Reportable Polychromasia Not Reportable Hypochromasia Not Reportable Poikilocytosis Not Reportable Anisocytosis 1+ Microcytosis Not Reportable Macrocytosis Not Reportable Spherocytes Not Reportable Pappenheimer Bodies Not Reportable Sickle Cells Not Reportable Target Cells Not Reportable Tear Drop Cells Not Reportable Ovalocytes Not Reportable Helmet Cells Not Reportable Cook-Bettendorf Bodies Not Reportable [place] Rings Not Reportable Belcher Cells Not Reportable Bite Cells Not Reportable Crenated Cell Not Reportable Elliptocytes Not Reportable Acanthocytes (Spur) Not Reportable Rouleaux Not Reportable Hemoglobin C Crystals Not Reportable Schistocytes Not Reportable Malaria parasites Not Reportable Jean Bodies Not Reportable Hem Pathologist Commnt No Sodium 140 Potassium 4.6 Chloride 105.2 Carbon Dioxide 14 L Anion Gap 25 BUN 11 Creatinine 0.7 Estimated GFR > 60 BUN/Creatinine Ratio 16 Glucose 247 H Calcium 9.4 HCG, Qual Negative Laboratory Results - last 24 hr 03/26/19 03/26/19 03/26/19 20:00 20:00 20:00 WBC 16.1 H RBC 4.82 Hgb 11.6 Hct 36.5 MCV 76 L MCH 24 L MCHC 32 RDW 17.8 H Plt Count 267 Lymph # Effervescent Salts Compounder Add Manual Diff Complete Total Counted 100 Seg Neuts % (Manual) 64.0 Band Neutrophils % 0 Lymphocytes % (Manual) 32.0 Reactive Lymphs % (Man) 0 Monocytes % (Manual) 4.0 Eosinophils % (Manual) 0 Basophils % (Manual) 0 Metamyelocytes % 0 Myelocytes % 0 Promyelocytes % 0 Blast Cells % 0 Nucleated RBC % Not Reportable Seg Neutrophils # Man 10.3 H Band Neutrophils # 0.0 Lymphocytes # (Manual) 5.2 Abs React Lymphs (Man) 0.0 Monocytes # (Manual) 0.6 Eosinophils # (Manual) 0.0 Basophils # (Manual) 0.0 Metamyelocytes # 0.0 Myelocytes # 0.0 Promyelocytes # 0.0 Blast Cells # 0.0 WBC Morphology Not Reportable Hypersegmented Neuts Not Reportable Hyposegmented Neuts Not Reportable Hypogranular Neuts Not Reportable Smudge Cells Not Reportable Toxic Granulation Not Reportable Toxic Vacuolation Not Reportable Dohle Bodies Not Reportable Pelger-Huet Anomaly Not Reportable Hugo Rods Not Reportable Platelet Estimate Consistent w auto Clumped Platelets Not Reportable Plt Clumps, EDTA Not Reportable Large Platelets Few Giant Platelets Not Reportable Platelet Satelliting Not Reportable Plt Morphology Comment Not Reportable RBC Morphology Not Reportable Dimorphic RBCs Not Reportable Polychromasia Not Reportable Hypochromasia Not Reportable Poikilocytosis Not Reportable Anisocytosis 1+ Microcytosis Not Reportable Macrocytosis Not Reportable Spherocytes Not Reportable Pappenheimer Bodies Not Reportable Sickle Cells Not Reportable Target Cells Not Reportable Tear Drop Cells Not Reportable Ovalocytes Not Reportable Helmet Cells Not Reportable Cook-Bettendorf Bodies Not Reportable [place] Rings Not Reportable Belcher Cells Not Reportable Bite Cells Not Reportable Crenated Cell Not Reportable Elliptocytes Not Reportable Acanthocytes (Spur) Not Reportable Rouleaux Not Reportable Hemoglobin C Crystals Not Reportable Schistocytes Not Reportable Malaria parasites Not Reportable Jean Bodies Not Reportable Hem Pathologist Commnt No APTT VBG pH Sodium 140 Potassium 4.6 Chloride 105.2 Carbon Dioxide 14 L Anion Gap 25 BUN 11 Creatinine 0.7 Estimated GFR > 60 BUN/Creatinine Ratio 16 Glucose 247 H Ketones Quantitative Lactic Acid Calcium 9.4 Total Bilirubin Direct Bilirubin Indirect Bilirubin AST ALT Alkaline Phosphatase Total Creatine Kinase CK-MB (CK-2) CK-MB (CK-2) Rel Index Troponin T Total Protein Albumin Albumin/Globulin Ratio HCG, Qual Negative 03/27/19 03/27/19 03/27/19 09:18 09:18 09:18 WBC RBC Hgb Hct MCV MCH MCHC RDW Plt Count Lymph # Add Manual Diff Total Counted Seg Neuts % (Manual) Band Neutrophils % Lymphocytes % (Manual) Reactive Lymphs % (Man) Monocytes % (Manual) Eosinophils % (Manual) Basophils % (Manual) Metamyelocytes % Myelocytes % Promyelocytes % Blast Cells % Nucleated RBC % Seg Neutrophils # Man Band Neutrophils # Lymphocytes # (Manual) Abs React Lymphs (Man) Monocytes # (Manual) Eosinophils # (Manual) Basophils # (Manual) Metamyelocytes # Myelocytes # Promyelocytes # Blast Cells # WBC Morphology Hypersegmented Neuts Hyposegmented Neuts Hypogranular Neuts Smudge Cells Toxic Granulation Toxic Vacuolation Dohle Bodies Pelger-Huet Anomaly Hugo Rods Platelet Estimate Clumped Platelets Plt Clumps, EDTA Large Platelets Giant Platelets Platelet Satelliting Plt Morphology Comment RBC Morphology Dimorphic RBCs Polychromasia Hypochromasia Poikilocytosis Anisocytosis Microcytosis Macrocytosis Spherocytes Pappenheimer Bodies Sickle Cells Target Cells Tear Drop Cells Ovalocytes Helmet Cells Cook-Bettendorf Bodies [place] Rings Chely Cells Bite Cells Crenated Cell Elliptocytes Acanthocytes (Spur) Rouleaux Hemoglobin C Crystals Schistocytes Malaria parasites Jean Bodies Hem Pathologist Commnt APTT 26.7 VBG pH Sodium Potassium Chloride Carbon Dioxide Anion Gap BUN Creatinine Estimated GFR BUN/Creatinine Ratio Glucose Ketones Quantitative Negative Lactic Acid 1.10 Calcium Total Bilirubin 0.20 Direct Bilirubin < 0.2 Indirect Bilirubin 0.0 AST 14 ALT 12 Alkaline Phosphatase 72 Total Creatine Kinase 68 CK-MB (CK-2) 1.1 CK-MB (CK-2) Rel Index 1.6 Troponin T < 0.010 Total Protein 6.6 Albumin 3.4 L Albumin/Globulin Ratio 1.1 HCG, Qual 03/27/19 09:18 WBC RBC Hgb Hct MCV MCH MCHC RDW Plt Count Lymph # Add Manual Diff Total Counted Seg Neuts % (Manual) Band Neutrophils % Lymphocytes % (Manual) Reactive Lymphs % (Man) Monocytes % (Manual) Eosinophils % (Manual) Basophils % (Manual) Metamyelocytes % Myelocytes % Promyelocytes % Blast Cells % Nucleated RBC % Seg Neutrophils # Man Band Neutrophils # Lymphocytes # (Manual) Abs React Lymphs (Man) Monocytes # (Manual) Eosinophils # (Manual) Basophils # (Manual) Metamyelocytes # Myelocytes # Promyelocytes # Blast Cells # WBC Morphology Hypersegmented Neuts Hyposegmented Neuts Hypogranular Neuts Smudge Cells Toxic Granulation Toxic Vacuolation Dohle Bodies Pelger-Huet Anomaly Hugo Rods Platelet Estimate Clumped Platelets Plt Clumps, EDTA Large Platelets Giant Platelets Platelet Satelliting Plt Morphology Comment RBC Morphology Dimorphic RBCs Polychromasia Hypochromasia Poikilocytosis Anisocytosis Microcytosis Macrocytosis Spherocytes Pappenheimer Bodies Sickle Cells Target Cells Tear Drop Cells Ovalocytes Helmet Cells Cook-Bettendorf Bodies [place] Rings Belcher Cells Bite Cells Crenated Cell Elliptocytes Acanthocytes (Spur) Rouleaux Hemoglobin C Crystals Schistocytes Malaria parasites Jean Bodies Hem Pathologist Commnt APTT VBG pH 7.350 Sodium Potassium Chloride Carbon Dioxide Anion Gap BUN Creatinine Estimated GFR BUN/Creatinine Ratio Glucose Ketones Quantitative Lactic Acid Calcium Total Bilirubin Direct Bilirubin Indirect Bilirubin AST ALT Alkaline Phosphatase Total Creatine Kinase CK-MB (CK-2) CK-MB (CK-2) Rel Index Troponin T Total Protein Albumin Albumin/Globulin Ratio HCG, Qual Laboratory Results - last 24 hr 03/26/19 03/26/19 03/26/19 20:00 20:00 20:00 WBC 16.1 H RBC 4.82 Hgb 11.6 Hct 36.5 MCV 76 L MCH 24 L MCHC 32 RDW 17.8 H Plt Count 267 Lymph # Effervescent Salts Compounder Add Manual Diff Complete Total Counted 100 Seg Neuts % (Manual) 64.0 Band Neutrophils % 0 Lymphocytes % (Manual) 32.0 Reactive Lymphs % (Man) 0 Monocytes % (Manual) 4.0 Eosinophils % (Manual) 0 Basophils % (Manual) 0 Metamyelocytes % 0 Myelocytes % 0 Promyelocytes % 0 Blast Cells % 0 Nucleated RBC % Not Reportable Seg Neutrophils # Man 10.3 H Band Neutrophils # 0.0 Lymphocytes # (Manual) 5.2 Abs React Lymphs (Man) 0.0 Monocytes # (Manual) 0.6 Eosinophils # (Manual) 0.0 Basophils # (Manual) 0.0 Metamyelocytes # 0.0 Myelocytes # 0.0 Promyelocytes # 0.0 Blast Cells # 0.0 WBC Morphology Not Reportable Hypersegmented Neuts Not Reportable Hyposegmented Neuts Not Reportable Hypogranular Neuts Not Reportable Smudge Cells Not Reportable Toxic Granulation Not Reportable Toxic Vacuolation Not Reportable Dohle Bodies Not Reportable Pelger-Huet Anomaly Not Reportable [place] Rods Not Reportable Platelet Estimate Consistent w auto Clumped Platelets Not Reportable Plt Clumps, EDTA Not Reportable Large Platelets Few Giant Platelets Not Reportable Platelet Satelliting Not Reportable Plt Morphology Comment Not Reportable RBC Morphology Not Reportable Dimorphic RBCs Not Reportable Polychromasia Not Reportable Hypochromasia Not Reportable Poikilocytosis Not Reportable Anisocytosis 1+ Microcytosis Not Reportable Macrocytosis Not Reportable Spherocytes Not Reportable Pappenheimer Bodies Not Reportable Sickle Cells Not Reportable Target Cells Not Reportable Tear Drop Cells Not Reportable Ovalocytes Not Reportable Helmet Cells Not Reportable Cook-Bettendorf Bodies Not Reportable [place] Rings Not Reportable Belcher Cells Not Reportable Bite Cells Not Reportable Crenated Cell Not Reportable Elliptocytes Not Reportable Acanthocytes (Spur) Not Reportable Rouleaux Not Reportable Hemoglobin C Crystals Not Reportable Schistocytes Not Reportable Malaria parasites Not Reportable Jean Bodies Not Reportable Hem Pathologist Commnt No APTT VBG pH Sodium 140 Potassium 4.6 Chloride 105.2 Carbon Dioxide 14 L Anion Gap 25 BUN 11 Creatinine 0.7 Estimated GFR > 60 BUN/Creatinine Ratio 16 Glucose 247 H Ketones Quantitative Lactic Acid Calcium 9.4 Total Bilirubin Direct Bilirubin Indirect Bilirubin AST ALT Alkaline Phosphatase Total Creatine Kinase CK-MB (CK-2) CK-MB (CK-2) Rel Index Troponin T Total Protein Albumin Albumin/Globulin Ratio HCG, Qual Negative 03/27/19 03/27/19 03/27/19 09:18 09:18 09:18 WBC RBC Hgb Hct MCV MCH MCHC RDW Plt Count Lymph # Add Manual Diff Total Counted Seg Neuts % (Manual) Band Neutrophils % Lymphocytes % (Manual) Reactive Lymphs % (Man) Monocytes % (Manual) Eosinophils % (Manual) Basophils % (Manual) Metamyelocytes % Myelocytes % Promyelocytes % Blast Cells % Nucleated RBC % Seg Neutrophils # Man Band Neutrophils # Lymphocytes # (Manual) Abs React Lymphs (Man) Monocytes # (Manual) Eosinophils # (Manual) Basophils # (Manual) Metamyelocytes # Myelocytes # Promyelocytes # Blast Cells # WBC Morphology Hypersegmented Neuts Hyposegmented Neuts Hypogranular Neuts Smudge Cells Toxic Granulation Toxic Vacuolation Dohle Bodies Pelger-Huet Anomaly Hugo Rods Platelet Estimate Clumped Platelets Plt Clumps, EDTA Large Platelets Giant Platelets Platelet Satelliting Plt Morphology Comment RBC Morphology Dimorphic RBCs Polychromasia Hypochromasia Poikilocytosis Anisocytosis Microcytosis Macrocytosis Spherocytes Pappenheimer Bodies Sickle Cells Target Cells Tear Drop Cells Ovalocytes Helmet Cells Cook-Bettendorf Bodies [place] Rings Belcher Cells Bite Cells Crenated Cell Elliptocytes Acanthocytes (Spur) Rouleaux Hemoglobin C Crystals Schistocytes Malaria parasites Jean Bodies Hem Pathologist Commnt APTT 26.7 VBG pH Sodium Potassium Chloride Carbon Dioxide Anion Gap BUN Creatinine Estimated GFR BUN/Creatinine Ratio Glucose Ketones Quantitative Negative Lactic Acid 1.10 Calcium Total Bilirubin 0.20 Direct Bilirubin < 0.2 Indirect Bilirubin 0.0 AST 14 ALT 12 Alkaline Phosphatase 72 Total Creatine Kinase 68 CK-MB (CK-2) 1.1 CK-MB (CK-2) Rel Index 1.6 Troponin T < 0.010 Total Protein 6.6 Albumin 3.4 L Albumin/Globulin Ratio 1.1 HCG, Qual 03/27/19 09:18 WBC RBC Hgb Hct MCV MCH MCHC RDW Plt Count Lymph # Add Manual Diff Total Counted Seg Neuts % (Manual) Band Neutrophils % Lymphocytes % (Manual) Reactive Lymphs % (Man) Monocytes % (Manual) Eosinophils % (Manual) Basophils % (Manual) Metamyelocytes % Myelocytes % Promyelocytes % Blast Cells % Nucleated RBC % Seg Neutrophils # Man Band Neutrophils # Lymphocytes # (Manual) Abs React Lymphs (Man) Monocytes # (Manual) Eosinophils # (Manual) Basophils # (Manual) Metamyelocytes # Myelocytes # Promyelocytes # Blast Cells # WBC Morphology Hypersegmented Neuts Hyposegmented Neuts Hypogranular Neuts Smudge Cells Toxic Granulation Toxic Vacuolation Dohle Bodies Pelger-Huet Anomaly Hugo Rods Platelet Estimate Clumped Platelets Plt Clumps, EDTA Large Platelets Giant Platelets Platelet Satelliting Plt Morphology Comment RBC Morphology Dimorphic RBCs Polychromasia Hypochromasia Poikilocytosis Anisocytosis Microcytosis Macrocytosis Spherocytes Pappenheimer Bodies Sickle Cells Target Cells Tear Drop Cells Ovalocytes Helmet Cells Cook-Bettendorf Bodies [place] Rings Belcher Cells Bite Cells Crenated Cell Elliptocytes Acanthocytes (Spur) Rouleaux Hemoglobin C Crystals Schistocytes Malaria parasites Jean Bodies Hem Pathologist Commnt APTT VBG pH 7.350 Sodium Potassium Chloride Carbon Dioxide Anion Gap BUN Creatinine Estimated GFR BUN/Creatinine Ratio Glucose Ketones Quantitative Lactic Acid Calcium Total Bilirubin Direct Bilirubin Indirect Bilirubin AST ALT Alkaline Phosphatase Total Creatine Kinase CK-MB (CK-2) CK-MB (CK-2) Rel Index Troponin T Total Protein Albumin Albumin/Globulin Ratio HCG, Qual Laboratory Results - last 24 hr 03/26/19 03/26/19 03/26/19 20:00 20:00 20:00 WBC 16.1 H RBC 4.82 Hgb 11.6 Hct 36.5 MCV 76 L MCH 24 L MCHC 32 RDW 17.8 H Plt Count 267 Lymph # Effervescent Salts Compounder Add Manual Diff Complete Total Counted 100 Seg Neuts % (Manual) 64.0 Band Neutrophils % 0 Lymphocytes % (Manual) 32.0 Reactive Lymphs % (Man) 0 Monocytes % (Manual) 4.0 Eosinophils % (Manual) 0 Basophils % (Manual) 0 Metamyelocytes % 0 Myelocytes % 0 Promyelocytes % 0 Blast Cells % 0 Nucleated RBC % Not Reportable Seg Neutrophils # Man 10.3 H Band Neutrophils # 0.0 Lymphocytes # (Manual) 5.2 Abs React Lymphs (Man) 0.0 Monocytes # (Manual) 0.6 Eosinophils # (Manual) 0.0 Basophils # (Manual) 0.0 Metamyelocytes # 0.0 Myelocytes # 0.0 Promyelocytes # 0.0 Blast Cells # 0.0 WBC Morphology Not Reportable Hypersegmented Neuts Not Reportable Hyposegmented Neuts Not Reportable Hypogranular Neuts Not Reportable Smudge Cells Not Reportable Toxic Granulation Not Reportable Toxic Vacuolation Not Reportable Dohle Bodies Not Reportable Pelger-Huet Anomaly Not Reportable Hugo Rods Not Reportable Platelet Estimate Consistent w auto Clumped Platelets Not Reportable Plt Clumps, EDTA Not Reportable Large Platelets Few Giant Platelets Not Reportable Platelet Satelliting Not Reportable Plt Morphology Comment Not Reportable RBC Morphology Not Reportable Dimorphic RBCs Not Reportable Polychromasia Not Reportable Hypochromasia Not Reportable Poikilocytosis Not Reportable Anisocytosis 1+ Microcytosis Not Reportable Macrocytosis Not Reportable Spherocytes Not Reportable Pappenheimer Bodies Not Reportable Sickle Cells Not Reportable Target Cells Not Reportable Tear Drop Cells Not Reportable Ovalocytes Not Reportable Helmet Cells Not Reportable Cook-Bettendorf Bodies Not Reportable [place] Rings Not Reportable Chely Cells Not Reportable Bite Cells Not Reportable Crenated Cell Not Reportable Elliptocytes Not Reportable Acanthocytes (Spur) Not Reportable Rouleaux Not Reportable Hemoglobin C Crystals Not Reportable Schistocytes Not Reportable Malaria parasites Not Reportable Jean Bodies Not Reportable Hem Pathologist Commnt No APTT VBG pH Sodium 140 Potassium 4.6 Chloride 105.2 Carbon Dioxide 14 L Anion Gap 25 BUN 11 Creatinine 0.7 Estimated GFR > 60 BUN/Creatinine Ratio 16 Glucose 247 H Ketones Quantitative Lactic Acid Calcium 9.4 Total Bilirubin Direct Bilirubin Indirect Bilirubin AST ALT Alkaline Phosphatase Total Creatine Kinase CK-MB (CK-2) CK-MB (CK-2) Rel Index Troponin T Total Protein Albumin Albumin/Globulin Ratio HCG, Qual Negative 03/27/19 03/27/19 03/27/19 09:18 09:18 09:18 WBC RBC Hgb Hct MCV MCH MCHC RDW Plt Count Lymph # Add Manual Diff Total Counted Seg Neuts % (Manual) Band Neutrophils % Lymphocytes % (Manual) Reactive Lymphs % (Man) Monocytes % (Manual) Eosinophils % (Manual) Basophils % (Manual) Metamyelocytes % Myelocytes % Promyelocytes % Blast Cells % Nucleated RBC % Seg Neutrophils # Man Band Neutrophils # Lymphocytes # (Manual) Abs React Lymphs (Man) Monocytes # (Manual) Eosinophils # (Manual) Basophils # (Manual) Metamyelocytes # Myelocytes # Promyelocytes # Blast Cells # WBC Morphology Hypersegmented Neuts Hyposegmented Neuts Hypogranular Neuts Smudge Cells Toxic Granulation Toxic Vacuolation Dohle Bodies Pelger-Huet Anomaly Hugo Rods Platelet Estimate Clumped Platelets Plt Clumps, EDTA Large Platelets Giant Platelets Platelet Satelliting Plt Morphology Comment RBC Morphology Dimorphic RBCs Polychromasia Hypochromasia Poikilocytosis Anisocytosis Microcytosis Macrocytosis Spherocytes Pappenheimer Bodies Sickle Cells Target Cells Tear Drop Cells Ovalocytes Helmet Cells Cook-Bettendorf Bodies [place] Rings Chely Cells Bite Cells Crenated Cell Elliptocytes Acanthocytes (Spur) Rouleaux Hemoglobin C Crystals Schistocytes Malaria parasites Jean Bodies Hem Pathologist Commnt APTT 26.7 VBG pH Sodium Potassium Chloride Carbon Dioxide Anion Gap BUN Creatinine Estimated GFR BUN/Creatinine Ratio Glucose Ketones Quantitative Negative Lactic Acid 1.10 Calcium Total Bilirubin 0.20 Direct Bilirubin < 0.2 Indirect Bilirubin 0.0 AST 14 ALT 12 Alkaline Phosphatase 72 Total Creatine Kinase 68 CK-MB (CK-2) 1.1 CK-MB (CK-2) Rel Index 1.6 Troponin T < 0.010 Total Protein 6.6 Albumin 3.4 L Albumin/Globulin Ratio 1.1 HCG, Qual 03/27/19 03/27/19 09:18 12:19 WBC RBC Hgb Hct MCV MCH MCHC RDW Plt Count Lymph # Add Manual Diff Total Counted Seg Neuts % (Manual) Band Neutrophils % Lymphocytes % (Manual) Reactive Lymphs % (Man) Monocytes % (Manual) Eosinophils % (Manual) Basophils % (Manual) Metamyelocytes % Myelocytes % Promyelocytes % Blast Cells % Nucleated RBC % Seg Neutrophils # Man Band Neutrophils # Lymphocytes # (Manual) Abs React Lymphs (Man) Monocytes # (Manual) Eosinophils # (Manual) Basophils # (Manual) Metamyelocytes # Myelocytes # Promyelocytes # Blast Cells # WBC Morphology Hypersegmented Neuts Hyposegmented Neuts Hypogranular Neuts Smudge Cells Toxic Granulation Toxic Vacuolation Dohle Bodies Pelger-Huet Anomaly Hugo Rods Platelet Estimate Clumped Platelets Plt Clumps, EDTA Large Platelets Giant Platelets Platelet Satelliting Plt Morphology Comment RBC Morphology Dimorphic RBCs Polychromasia Hypochromasia Poikilocytosis Anisocytosis Microcytosis Macrocytosis Spherocytes Pappenheimer Bodies Sickle Cells Target Cells Tear Drop Cells Ovalocytes Helmet Cells Cook-Bettendorf Bodies [place] Rings Chely Cells Bite Cells Crenated Cell Elliptocytes Acanthocytes (Spur) Rouleaux Hemoglobin C Crystals Schistocytes Malaria parasites Jean Bodies Hem Pathologist Commnt APTT VBG pH 7.350 Sodium 142 Potassium 3.6 D Chloride 107.8 H Carbon Dioxide 20 L Anion Gap 18 BUN 10 Creatinine 0.6 L Estimated GFR > 60 BUN/Creatinine Ratio 17 Glucose 108 H Ketones Quantitative Lactic Acid Calcium 8.4 Total Bilirubin Direct Bilirubin Indirect Bilirubin AST ALT Alkaline Phosphatase Total Creatine Kinase CK-MB (CK-2) CK-MB (CK-2) Rel Index Troponin T Total Protein Albumin Albumin/Globulin Ratio HCG, Qual Critical care attestation.: If time is entered above; I have spent that time in minutes in the direct care of this critically ill patient, excluding procedure time. ED Disposition Clinical Impression: Dehydration, Insulin dependent diabetes mellitus Lupus (systemic lupus erythematosus) Qualifiers: Systemic lupus erythematosus type: unspecified Systemic lupus erythematosus organ involvement: unspecified Qualified Code(s): M32.9 - Systemic lupus erythematosus, unspecified Disposition: TO HOME OR SELFCARE Is pt being admited?: No Does the pt Need Aspirin: No Condition: Undetermined Instructions: Diabetes Mellitus Type 2 in Adults (ED) Additional Instructions: Follow-up with her primary care provider. Following her sugar carefully. Increase fluids. Return to the emergency department fever, chills or any acute change or problem. Prescriptions: HYDROcodone/APAP 5-325 [[place] 5/325] 1 each PO Q6HR PRN #7 tablet PRN Reason: Pain Referrals: PRIMARY CARE, [Primary Care Provider] - 3-5 Days Time of Disposition: 14:01
[2019-03-27] MEDS ORDERED: ONDANSETRON 4 MG/2 ML INJ IV ONE (09:04)
[2019-03-27] MEDS ORDERED: MORPHINE 2 MG/1 ML INJ IV ONE ×2 (09:04→12:30)
[2019-03-27] MEDS ORDERED: CEFEPIME/NS 1 GM/100 ML 1 GM/100 ML BAG IV ONE (09:09)
[2019-03-27] MEDS ORDERED: CLINDAMYCIN 600 MG/50 mL 600 MG/50 ML BAG IV ONE (09:10)
[2019-03-27 09:55] LABS: Creatine Kinase MB 1.1 ng/mL (0.0-4.0)
[2019-03-27 09:57] LABS: Alanine Aminotransferase 12 units/L (7-56); Albumin 3.4 g/dL (3.9-5); Bilirubin,Direct < 0.2 mg/dL (0-0.2)
--- NOTE | 2019-03-27 10:22 | XRay Report ---
CHEST 1 VIEW INDICATION: cough. COMPARISON: 12/02/2017 FINDINGS: Support devices: None. Heart: Within normal limits. Lungs/Pleura: No acute air space or interstitial disease. Additional findings: None. IMPRESSION: No acute findings. Signer Name: Kong Kunz Jr, MD Signed: 03/27/2019 10:18 AM Workstation Name: [id number]
[2019-03-27 12:34] LABS: BUN/Creatinine Ratio 17; Blood Urea Nitrogen 10 mg/dL (7-17); Calcium 8.4 mg/dL (8.4-10.2); Hemolysis Index 1
[2019-03-27 13:04] LABS: Bilirubin,Urine NEG (Negative); Blood,Urine NEG (Negative); Color,Urine Yellow (Yellow); Mucus,Urine FEW /HPF; Protein,Urine <15 mg/dL mg/dL (Negative); Urobilinogen,Urine < 2.0 mg/dL (<2.0); WBC,Urine < 1.0 /HPF (0.0-6.0)
[2019-03-27 13:12] LABS: Amphetamine Screen,Urine PRESUMPTIVE NEGATIVE; Benzodiazepines Screen,Urine PRESUMPTIVE NEGATIVE; Cocaine Screen,Urine PRESUMPTIVE NEGATIVE; Methadone Screen,Urine PRESUMPTIVE NEGATIVE
[2019-03-27 14:01] LABS: Cannabinoid Screen,Urine PRESUMPTIVE POSITIVE; Opiate Screen,Urine PRESUMPTIVE POSITIVE
[2019-03-27 14:45] VITALS: BP 131/67
== END 2019-03-27 14:45 | disposition home or self-care (01) ==
LOC: ED 15:43
DX: E86.0 Dehydration (principal); M32.9 Systemic lupus erythematosus, unspecified; E11.9 Type 2 diabetes mellitus without complications; F31.9 Bipolar disorder, unspecified; F12.10 Cannabis abuse, uncomplicated; Z86.2 Personal history of diseases of the blood and blood-forming organs and certain disorders involving the immune mechanism; Z95.5 Presence of coronary angioplasty implant and graft; Z98.890 Other specified postprocedural states; Z79.899 Other long term (current) drug therapy; Z88.1 Allergy status to other antibiotic agents; Z88.6 Allergy status to analgesic agent; Z91.012 Allergy to eggs
CPT/HCPCS: 36415; 71045; 80048; 80076; 80307; 81001; 82010; 82140; 82550; 82553; 82805; 84484; 84703; 85007; 85025; 85730; 87040; 96361; 96365; 96367; 96375; 96376; 99284; J0692; J2270; J2405; J7030

== ENCOUNTER 2019-04-14 18:36 | Emergency (ER) | payer MEDICARE ==
[2019-04-14 18:54] VITALS: BP 135/87
== END 2019-04-14 21:45 | disposition left against medical advice (07) ==
LOC: ED 18:36
DX: M79.605 Pain in left leg (principal); Z53.21 Procedure and treatment not carried out due to patient leaving prior to being seen by health care provider

== ENCOUNTER 2019-04-22 23:22 | Emergency (ER) | payer MEDICARE ==
[2019-04-22 23:37] VITALS: BP 143/81
[2019-04-23 00:19] LABS: Basophils # (Auto) 0.1 K/mm3 (0.0-0.1); Eosinophils # (Auto) 0.1 K/mm3 (0.0-0.4); Hematocrit 33.2 % (30.3-42.9); Lymphocytes % (Auto) 25.4 % (13.4-35.0); Mean Corpuscular HGB Conc 33 % (30-34); Mean Corpuscular Volume 75 fl (79-97); Monocytes # (Auto) 0.5 K/mm3 (0.0-0.8); Monocytes % (Auto) 4.5 % (0.0-7.3); Red Blood Count 4.43 M/mm3 (3.65-5.03); Red Cell Distribution Width 17.2 % (13.2-15.2)
[2019-04-23 00:20] LABS: Platelet Count 266 K/mm3 (140-440)
[2019-04-23 00:40] LABS: Alanine Aminotransferase 10 units/L (7-56); BUN/Creatinine Ratio 17; Blood Urea Nitrogen 12 mg/dL (7-17); Calcium 9.3 mg/dL (8.4-10.2); Hemolysis Index 6
[2019-04-23 00:54] LABS: Bacteria,Urine 1+ /HPF (Negative); Bilirubin,Urine NEG (Negative); Blood,Urine NEG (Negative); Color,Urine Yellow (Yellow); Mucus,Urine 1+ /HPF; Protein,Urine <15 mg/dL mg/dL (Negative); Urobilinogen,Urine < 2.0 mg/dL (<2.0)
--- NOTE | 2019-04-23 02:21 | Emergency Department Report ---
ED General Adult HPI - General Chief complaint: Abdominal Pain Stated complaint: LUPUS PAIN/HIGH BLOOD SUGAR Time Seen by Provider: 04/23/19 02:14 Source: patient Mode of arrival: Ambulatory Limitations: No Limitations - History of Present Illness Initial comments: Chief complaint: "Doc, I'm going through a flare up." HPI: Ms. Riley is a 39-year-old female with SLE, bipolar disorder, insulin- dependent diabetes, coronary artery disease, hypertension who presents with joint pain diffusely. She has had pain similar in the past which she has attributed to lupus flareups. She denies trauma. She denies swelling. She states that she's been under a lot of stress. She denies homicidal ideation. She has recently established care with a primary care physician. She has follow-up with his physician on Tuesday. She is hesitant to use steroid therapy due to uncontrolled diabetes She currently denies abdominal pain. -: Gradual, days(s) (several days) Location: left, right, upper extremity, lower extremity Severity scale (0 -10): 7 Quality: aching Consistency: constant Improves with: none Worsens with: none Associated Symptoms: denies other symptoms - Related Data Home Medications Medication Instructions Recorded Confirmed Last Taken lisinopriL [Lisinopril] 20 mg PO DAILY 10/08/17 11/26/17 11/20/17 10:00 Zolpidem [Ambien] 10 mg PO QHS 11/26/17 11/26/17 Unknown Detemir (Nf) [Levemir (Nf)] 60 units SUB-Q HS 11/27/17 11/26/17 Unknown Previous Rx's Medication Instructions Recorded Last Taken Type Aspirin [Aspirin BABY CHEW TAB] 81 mg PO QDAY #30 tab.chew 06/12/17 11/20/17 10:00 Rx Clopidogrel [Plavix] 75 mg PO QDAY #30 tablet 06/12/17 11/20/17 10:00 Rx Hydroxychloroquine [Plaquenil] 200 mg PO QDAY tablet 11/28/17 Unknown Rx Lispro Insulin [HumaLOG] 0 unit SUB-Q ACHS units 11/28/17 Unknown Rx Dicyclomine [Bentyl] 10 mg PO BID #20 capsule 09/01/18 Unknown Rx Fluconazole [Diflucan TAB] 150 mg PO ONCE #2 tablet 06/19/19 Unknown Rx metroNIDAZOLE [Flagyl] 500 mg PO Q12HR #20 tab 09/20/18 Unknown Rx Clindamycin [Clindamycin CAP] 300 mg PO Q6H #21 capsule 11/06/18 Unknown Rx Ibuprofen [Motrin 800 MG tab] 800 mg PO Q8HR PRN #20 tablet 11/06/18 Unknown Rx Acetamin/Codeine 120-12Mg/5 ml 5 ml PO TID #50 ml 11/25/18 Unknown Rx [Tylenol/Codeine] Famotidine [Pepcid] 20 mg PO BID #20 tablet 11/25/18 Unknown Rx Acetaminophen [Acetaminophen TAB] 1,000 mg PO Q6HR PRN #60 tablet 03/26/19 Unknown Rx Ibuprofen [Motrin 800 MG tab] 800 mg PO Q8HR PRN #30 tablet 03/26/19 Unknown Rx predniSONE [Deltasone] 40 mg PO QDAY 5 Days #10 tab 03/26/19 Unknown Rx Blood-Glucose Meter [Glucocard 1 each PRN #1 each 04/05/19 Unknown Rx Shine Connex Meter] Insulin Detemir [Levemir Flextouch] 40 unit SQ QHS #4 insuln.pen 04/05/19 Unknown Rx Insulin Regular, Human [HumuLIN R] 10 unit SQ AC #200 units 04/05/19 Unknown Rx Lancets [Glucocom Lancets] 1 each MC TID #1 pack 04/05/19 Unknown Rx oxyCODONE /ACETAMINOPHEN [Percocet 1 tab PO Q6HR PRN #10 tablet 04/23/19 Unknown Rx 5/325] Allergies Allergy/AdvReac Type Severity Reaction Status Date / Time egg Allergy Hives Verified 04/01/19 12:51 tramadol HCl [From Ultram] Allergy Hives Verified 04/01/19 12:51 vancomycin Allergy Hives Verified 04/01/19 12:51 ED Review of Systems ROS: Stated complaint: LUPUS PAIN/HIGH BLOOD SUGAR Other details as noted in HPI Comment: All other systems reviewed and negative Constitutional: denies: fever, malaise Gastrointestinal: abdominal pain, nausea, vomiting Musculoskeletal: arthralgia ED Past Medical Hx - Past Medical History Previous Medical History?: Yes Hx Hypertension: Yes Hx CVA: No Hx Heart Attack/AMI: Yes (05/22, cardiac stent x1) Hx Congestive Heart Failure: No Hx Diabetes: Yes (type 2) Hx Deep Vein Thrombosis: No Hx Pulmonary Embolism: No Hx GERD: No Hx Liver Disease: No Hx Renal Disease: No Hx Sickle Cell Disease: No Hx Arthritis: No Hx Headaches / Migraines: No Hx Seizures: No Hx Kidney Stones: No 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 iron deficient anemia - Surgical History Hx Coronary Stent: Yes (x1) Hx Open Heart Surgery: No Hx Pacemaker: No Hx Internal Defibrillator: No Hx Cholecystectomy: No Hx Appendectomy: No Hx Breast Surgery: Yes (breast reduction 05/2004) Additional Surgical History: Breast reduction bilateral,excisional surg. for abscess - Social History Smoking Status: Current Every Day Smoker Substance Use Type: Marijuana - Medications Home Medications: Home Medications Medication Instructions Recorded Confirmed Last Taken Type Aspirin [Aspirin BABY CHEW TAB] 81 mg PO QDAY #30 tab.chew 06/12/17 11/26/17 11/20/17 10:00 Rx Clopidogrel [Plavix] 75 mg PO QDAY #30 tablet 06/12/17 11/26/17 11/20/17 10:00 Rx lisinopriL [Lisinopril] 20 mg PO DAILY 10/08/17 11/26/17 11/20/17 10:00 History Zolpidem [Ambien] 10 mg PO QHS 11/26/17 11/26/17 Unknown History Detemir (Nf) [Levemir (Nf)] 60 units SUB-Q HS 11/27/17 11/26/17 Unknown History Hydroxychloroquine [Plaquenil] 200 mg PO QDAY tablet 11/28/17 Unknown Rx Lispro Insulin [HumaLOG] 0 unit SUB-Q ACHS units 11/28/17 Unknown Rx Dicyclomine [Bentyl] 10 mg PO BID #20 capsule 09/01/18 Unknown Rx Fluconazole [Diflucan TAB] 150 mg PO ONCE #2 tablet 09/20/18 Unknown Rx metroNIDAZOLE [Flagyl] 500 mg PO Q12HR #20 tab 09/20/18 Unknown Rx Clindamycin [Clindamycin CAP] 300 mg PO Q6H #21 capsule 11/06/18 Unknown Rx Ibuprofen [Motrin 800 MG tab] 800 mg PO Q8HR PRN #20 tablet 11/06/18 Unknown Rx Acetamin/Codeine 120-12Mg/5 ml 5 ml PO TID #50 ml 11/25/18 Unknown Rx [Tylenol/Codeine] Famotidine [Pepcid] 20 mg PO BID #20 tablet 11/25/18 Unknown Rx Acetaminophen [Acetaminophen TAB] 1,000 mg PO Q6HR PRN #60 tablet 03/26/19 Unknown Rx Ibuprofen [Motrin 800 MG tab] 800 mg PO Q8HR PRN #30 tablet 03/26/19 Unknown Rx predniSONE [Deltasone] 40 mg PO QDAY 5 Days #10 tab 03/26/19 Unknown Rx Blood-Glucose Meter [Glucocard 1 each MC PRN #1 each 04/05/19 Unknown Rx Shine Connex Meter] Insulin Detemir [Levemir Flextouch] 40 unit SQ QHS #4 insuln.pen 04/05/19 Unknown Rx Insulin Regular, Human [HumuLIN R] 10 unit SQ AC #200 units 04/05/19 Unknown Rx Lancets [Glucocom Lancets] 1 each MC TID #1 pack 04/05/19 Unknown Rx oxyCODONE /ACETAMINOPHEN [Percocet 1 tab PO Q6HR PRN #10 tablet 04/23/19 Unknown Rx 5/325] ED Physical Exam - General Limitations: No Limitations General appearance: alert, in no apparent distress, other (well-appearing no acute distress) - Head Head exam: Present: atraumatic, normocephalic - Eye Eye exam: Present: normal appearance - ENT ENT exam: Present: mucous membranes moist - Neck Neck exam: Present: normal inspection - Respiratory Respiratory exam: Present: normal lung sounds bilaterally. Absent: respiratory distress, wheezes, rhonchi - Cardiovascular Cardiovascular Exam: Present: regular rate, normal rhythm, normal heart sounds. Absent: systolic murmur, diastolic murmur, rubs, gallop - GI/Abdominal GI/Abdominal exam: Present: soft, normal bowel sounds. Absent: distended, tenderness, guarding, rebound - Extremities Exam Extremities exam: Present: normal inspection - Neurological Exam Neurological exam: Present: alert, oriented X3 - Psychiatric Psychiatric exam: Present: normal affect, normal mood - Skin Skin exam: Present: warm, dry, intact, normal color. Absent: rash ED Course Vital Signs 04/22/19 23:26 Temperature 98.3 F Pulse Rate 78 Respiratory 18 Rate Blood Pressure 143/81 O2 Sat by Pulse 100 Oximetry ED Medical Decision Making - Lab Data Result diagrams: 04/22/19 23:56 04/22/19 23:56 Laboratory Results - last 24 hr 04/22/19 04/22/19 04/22/19 23:56 23:56 23:56 WBC 12.0 H RBC 4.43 Hgb 11.0 Hct 33.2 MCV 75 L MCH 25 L MCHC 33 RDW 17.2 H Plt Count 266 Lymph % (Auto) 25.4 [place] % (Auto) 4.5 Eos % (Auto) 1.0 Baso % (Auto) 1.0 Lymph # 3.0 [place] # 0.5 Eos # 0.1 Baso # 0.1 Seg Neutrophils % 68.1 Seg Neutrophils # 8.2 H Sodium 137 Potassium 4.4 Chloride 102.1 Carbon Dioxide 20 L Anion Gap 19 BUN 12 Creatinine 0.7 Estimated GFR > 60 BUN/Creatinine Ratio 17 Glucose 292 H Calcium 9.3 Total Bilirubin < 0.20 AST 10 ALT 10 Alkaline Phosphatase 100 Total Protein 6.7 Albumin 4.0 Albumin/Globulin Ratio 1.5 HCG, Qual Negative Urine Color Urine Turbidity Urine pH Ur Specific [place] Urine Protein Urine Glucose (UA) Urine Ketones Urine Blood Urine Nitrite Urine Bilirubin Urine Urobilinogen Ur Leukocyte Esterase Urine WBC (Auto) Urine RBC (Auto) U Epithel Cells (Auto) Urine Bacteria (Auto) Urine Mucus 04/22/19 Unknown WBC RBC Hgb Hct MCV MCH MCHC RDW Plt Count Lymph % (Auto) [place] % (Auto) Eos % (Auto) Baso % (Auto) Lymph # [place] # Eos # Baso # Seg Neutrophils % Seg Neutrophils # Sodium Potassium Chloride Carbon Dioxide Anion Gap BUN Creatinine Estimated GFR BUN/Creatinine Ratio Glucose Calcium Total Bilirubin AST ALT Alkaline Phosphatase Total Protein Albumin Albumin/Globulin Ratio HCG, Qual Urine Color Yellow Urine Turbidity Clear Urine pH 5.0 Ur Specific [place] 1.031 H Urine Protein <15 mg/dl Urine Glucose (UA) >=500 Urine Ketones Tr Urine Blood Neg Urine Nitrite Neg Urine Bilirubin Neg Urine Urobilinogen < 2.0 Ur Leukocyte Esterase Neg Urine WBC (Auto) 2.0 Urine RBC (Auto) 2.0 U Epithel Cells (Auto) 4.0 Urine Bacteria (Auto) 1+ Urine Mucus 1+ - Medical Decision Making Ms. White appears well nontoxic. She has trace ketones and urinalysis. Blood sugar less than 300 on chemistry. Mildly elevated white count nonspecific. I do not suspect sepsis. I do not suspect acute intra-abdominal inflammatory process. No evidence of DKA. I have prescribed 10 tablets of Percocet. She received IM morphine in the emergency department. Critical care attestation.: If time is entered above; I have spent that time in minutes in the direct care of this critically ill patient, excluding procedure time. ED Disposition Clinical Impression: Exacerbation of systemic lupus, Joint pain, IDDM (insulin dependent diabetes mellitus) Disposition: TO HOME OR SELFCARE Is pt being admited?: No Does the pt Need Aspirin: No Condition: Stable Prescriptions: oxyCODONE /ACETAMINOPHEN [Percocet 5/325] 1 tab PO Q6HR PRN #10 tablet PRN Reason: Pain Referrals: PRIMARY CARE, [Primary Care Provider] - 3-5 Days
[2019-04-23] MEDS ORDERED: ONDANSETRON 4 MG ODT TAB PO ONE (02:23)
[2019-04-23] MEDS ORDERED: MORPHINE 4 MG/1 ML INJ IM ONE (02:23)
== END 2019-04-23 03:00 | disposition home or self-care (01) ==
LOC: ED 23:22
DX: M32.8 Other forms of systemic lupus erythematosus (principal); E11.9 Type 2 diabetes mellitus without complications; I25.2 Old myocardial infarction; F31.9 Bipolar disorder, unspecified; Z95.5 Presence of coronary angioplasty implant and graft; F17.200 Nicotine dependence, unspecified, uncomplicated; F12.10 Cannabis abuse, uncomplicated; Z86.2 Personal history of diseases of the blood and blood-forming organs and certain disorders involving the immune mechanism; Z79.899 Other long term (current) drug therapy; Z88.1 Allergy status to other antibiotic agents; Z88.6 Allergy status to analgesic agent; Z91.012 Allergy to eggs
CPT/HCPCS: 36415; 80053; 81001; 84703; 85025; 96372; 99283; J2270; Q0162

== ENCOUNTER 2019-05-11 06:47 | Emergency (ER) | payer MEDICARE ==
[2019-05-11 08:12] LABS: Basophils # (Auto) 0.1 K/mm3 (0.0-0.1); Basophils % (Auto) 0.6 % (0.0-1.8); Eosinophils % (Auto) 0.4 % (0.0-4.3); Hematocrit 35.1 % (30.3-42.9); Hemoglobin 11.3 gm/dl (10.1-14.3); Lymphocytes # (Auto) 2.1 K/mm3 (1.2-5.4); Lymphocytes % (Auto) 24.4 % (13.4-35.0); Mean Corpuscular HGB Conc 32 % (30-34); Mean Corpuscular Volume 76 fl (79-97); Monocytes # (Auto) 0.4 K/mm3 (0.0-0.8); Platelet Count 283 K/mm3 (140-440); Red Blood Count 4.64 M/mm3 (3.65-5.03); Red Cell Distribution Width 16.9 % (13.2-15.2)
[2019-05-11 08:26] LABS: Alanine Aminotransferase 14 units/L (7-56); BUN/Creatinine Ratio 20; Blood Urea Nitrogen 12 mg/dL (7-17); Calcium 9.4 mg/dL (8.4-10.2); Hemolysis Index 6
[2019-05-11 09:45] LABS: Bilirubin,Urine NEG (Negative); Blood,Urine NEG (Negative); Color,Urine Straw (Yellow); Protein,Urine <15 mg/dL mg/dL (Negative); RBC,Urine < 1.0 /HPF (0.0-6.0); Urobilinogen,Urine < 2.0 mg/dL (<2.0)
[2019-05-11 09:47] LABS: WBC,Urine < 1.0 /HPF (0.0-6.0)
--- NOTE | 2019-05-11 11:04 | Emergency Department Report ---
ED General Adult HPI - General Chief complaint: Abdominal Pain Stated complaint: JOINT PAIN FEVER POSS ELEVATED BS Time Seen by Provider: 05/11/19 09:39 Source: patient Mode of arrival: Ambulatory Limitations: No Limitations - History of Present Illness Initial comments: 39-year-old obese -[place] female with a past medical history of type 2 diabetes, myocardial infarction with cardiac stent 2018, bipolar/schizoaffective disorder, lupus, deficiency anemia, hypertension return to the emergency department complaining of possible lupus flare or the last 4 days that she has been experiencing polyarthralgia does not responding to Tylenol 3. She reports also having a couple episodes of nausea and vomiting with some vague abdominal discomfort as well. Her primary care doctor is Dr. Schaffer and she is patient at [facility] with having some insurance issues with meantime states that her doctor has discontinued her steroids and increased black male. Still zepeda reduction was secondary to her diabetes history and some issues with control. States her primary concern and reason for coming to the emergency Department today's primarily to get analgesic control of the joint pain in her knees and elbows. She reports no trauma. Reports no chest pain, hemoptysis, hematemesis, hematochezia, blurred vision, dizziness, constipation, diarrhea, foreign travel, rashes. Radiation: non-radiation Quality: aching Consistency: constant Improves with: none Worsens with: none Treatments Prior to Arrival: none - Related Data Home Medications Medication Instructions Recorded Confirmed Last Taken lisinopriL [Lisinopril] 20 mg PO DAILY 10/08/17 11/26/17 11/20/17 10:00 Zolpidem [Ambien] 10 mg PO QHS 11/26/17 11/26/17 Unknown Detemir (Nf) [Levemir (Nf)] 60 units SUB-Q HS 11/27/17 11/26/17 Unknown Previous Rx's Medication Instructions Recorded Last Taken Type Aspirin [Aspirin BABY CHEW TAB] 81 mg PO QDAY #30 tab.chew 06/12/17 11/20/17 10:00 Rx Clopidogrel [Plavix] 75 mg PO QDAY #30 tablet 06/12/17 11/20/17 10:00 Rx Hydroxychloroquine [Plaquenil] 200 mg PO QDAY tablet 11/28/17 Unknown Rx Lispro Insulin [HumaLOG] 0 unit SUB-Q ACHS units 11/28/17 Unknown Rx Dicyclomine [Bentyl] 10 mg PO BID #20 capsule 09/01/18 Unknown Rx Fluconazole [Diflucan TAB] 150 mg PO ONCE #2 tablet 09/20/18 Unknown Rx metroNIDAZOLE [Flagyl] 500 mg PO Q12HR #20 tab 09/20/18 Unknown Rx Clindamycin [Clindamycin CAP] 300 mg PO Q6H #21 capsule 11/06/18 Unknown Rx Ibuprofen [Motrin 800 MG tab] 800 mg PO Q8HR PRN #20 tablet 11/06/18 Unknown Rx Acetamin/Codeine 120-12Mg/5 ml 5 ml PO TID #50 ml 11/25/18 Unknown Rx [Tylenol/Codeine] Famotidine [Pepcid] 20 mg PO BID #20 tablet 11/25/18 Unknown Rx Acetaminophen [Acetaminophen TAB] 1,000 mg PO Q6HR PRN #60 tablet 03/26/19 Unknown Rx Ibuprofen [Motrin 800 MG tab] 800 mg PO Q8HR PRN #30 tablet 03/26/19 Unknown Rx predniSONE [Deltasone] 40 mg PO QDAY 5 Days #10 tab 03/26/19 Unknown Rx Blood-Glucose Meter [Glucocard 1 each MC PRN #1 each 04/05/19 Unknown Rx Shine Connex Meter] Insulin Detemir [Levemir Flextouch] 40 unit SQ QHS #4 insuln.pen 04/05/19 Unknown Rx Insulin Regular, Human [HumuLIN R] 10 unit SQ AC #200 units 04/05/19 Unknown Rx Lancets [Glucocom Lancets] 1 each MC TID #1 pack 04/05/19 Unknown Rx oxyCODONE /ACETAMINOPHEN [Percocet 1 tab PO Q6HR PRN #10 tablet 04/23/19 Unknown Rx 5/325] Dicyclomine [Bentyl] 20 mg PO QID #10 tablet 04/29/19 Unknown Rx HYDROcodone/APAP 5-325 [[place] 1 each PO Q6HR PRN #10 tablet 04/29/19 Unknown Rx 5/325] Ondansetron [Zofran Odt] 4 mg PO Q8HR #10 tab.rapdis 04/29/19 Unknown Rx Allergies Allergy/AdvReac Type Severity Reaction Status Date / Time egg Allergy Hives Verified 04/01/19 12:51 tramadol HCl [From Ultram] Allergy Hives Verified 04/01/19 12:51 vancomycin Allergy Hives Verified 04/01/19 12:51 ED Review of Systems ROS: Stated complaint: JOINT PAIN FEVER POSS ELEVATED BS Other details as noted in HPI Comment: All other systems reviewed and negative ED Past Medical Hx - Past Medical History Previous Medical History?: Yes Hx Hypertension: Yes Hx CVA: No Hx Heart Attack/AMI: Yes (05/22, cardiac stent x1) Hx Congestive Heart Failure: No Hx Diabetes: Yes (type 2) Hx Deep Vein Thrombosis: No Hx Pulmonary Embolism: No Hx GERD: No Hx Liver Disease: No Hx Renal Disease: No Hx Sickle Cell Disease: No Hx Arthritis: No Hx Headaches / Migraines: No Hx Seizures: No Hx Kidney Stones: No 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 iron deficient anemia - Surgical History Past Surgical History?: Yes Hx Coronary Stent: Yes (x1) Hx Open Heart Surgery: No Hx Pacemaker: No Hx Internal Defibrillator: No Hx Cholecystectomy: No Hx Appendectomy: No Hx Breast Surgery: Yes (breast reduction 05/2004) Additional Surgical History: Breast reduction bilateral,excisional surg. for abscess - Social History Smoking Status: Current Every Day Smoker Substance Use Type: None - Medications Home Medications: Home Medications Medication Instructions Recorded Confirmed Last Taken Type Aspirin [Aspirin BABY CHEW TAB] 81 mg PO QDAY #30 tab.chew 06/12/17 11/26/17 11/20/17 10:00 Rx Clopidogrel [Plavix] 75 mg PO QDAY #30 tablet 06/12/17 11/26/17 11/20/17 10:00 Rx lisinopriL [Lisinopril] 20 mg PO DAILY 10/08/17 11/26/17 11/20/17 10:00 History Zolpidem [Ambien] 10 mg PO QHS 11/26/17 11/26/17 Unknown History Detemir (Nf) [Levemir (Nf)] 60 units SUB-Q HS 11/27/17 11/26/17 Unknown History Hydroxychloroquine [Plaquenil] 200 mg PO QDAY tablet 11/28/17 Unknown Rx Lispro Insulin [HumaLOG] 0 unit SUB-Q ACHS units 11/28/17 Unknown Rx Dicyclomine [Bentyl] 10 mg PO BID #20 capsule 09/01/18 Unknown Rx Fluconazole [Diflucan TAB] 150 mg PO ONCE #2 tablet 09/20/18 Unknown Rx metroNIDAZOLE [Flagyl] 500 mg PO Q12HR #20 tab 09/20/18 Unknown Rx Clindamycin [Clindamycin CAP] 300 mg PO Q6H #21 capsule 11/06/18 Unknown Rx Ibuprofen [Motrin 800 MG tab] 800 mg PO Q8HR PRN #20 tablet 11/06/18 Unknown Rx Acetamin/Codeine 120-12Mg/5 ml 5 ml PO TID #50 ml 11/25/18 Unknown Rx [Tylenol/Codeine] Famotidine [Pepcid] 20 mg PO BID #20 tablet 11/25/18 Unknown Rx Acetaminophen [Acetaminophen TAB] 1,000 mg PO Q6HR PRN #60 tablet 03/26/19 Unknown Rx Ibuprofen [Motrin 800 MG tab] 800 mg PO Q8HR PRN #30 tablet 03/26/19 Unknown Rx predniSONE [Deltasone] 40 mg PO QDAY 5 Days #10 tab 03/26/19 Unknown Rx Blood-Glucose Meter [Glucocard 1 each MC PRN #1 each 04/05/19 Unknown Rx Shine Connex Meter] Insulin Detemir [Levemir Flextouch] 40 unit SQ QHS #4 insuln.pen 04/05/19 Unknown Rx Insulin Regular, Human [HumuLIN R] 10 unit SQ AC #200 units 04/05/19 Unknown Rx Lancets [Glucocom Lancets] 1 each MC TID #1 pack 04/05/19 Unknown Rx oxyCODONE /ACETAMINOPHEN [Percocet 1 tab PO Q6HR PRN #10 tablet 04/23/19 Unknown Rx 5/325] Dicyclomine [Bentyl] 20 mg PO QID #10 tablet 04/29/19 Unknown Rx HYDROcodone/APAP 5-325 [[place] 1 each PO Q6HR PRN #10 tablet 04/29/19 Unknown Rx 5/325] Ondansetron [Zofran Odt] 4 mg PO Q8HR #10 tab.rapdis 04/29/19 Unknown Rx ED Physical Exam - General Limitations: No Limitations General appearance: alert, in no apparent distress - Head Head exam: Present: atraumatic, normocephalic - Eye Eye exam: Present: normal appearance, PERRL, EOMI - ENT ENT exam: Present: normal exam, mucous membranes moist - Neck Neck exam: Present: normal inspection, full ROM - Respiratory Respiratory exam: Present: normal lung sounds bilaterally. Absent: respiratory distress - Cardiovascular Cardiovascular Exam: Present: regular rate, normal rhythm. Absent: systolic murmur, diastolic murmur, rubs, gallop - GI/Abdominal GI/Abdominal exam: Present: soft, normal bowel sounds - Extremities Exam Extremities exam: Present: normal inspection - Back Exam Back exam: Present: normal inspection - Neurological Exam Neurological exam: Present: alert, oriented X3, CN II-XII intact - Psychiatric Psychiatric exam: Present: normal affect, normal mood - Skin Skin exam: Present: warm, dry, intact, normal color. Absent: rash ED Course Vital Signs 05/11/19 05/11/19 05/11/19 06:52 09:16 09:31 Temperature 97.9 F Pulse Rate 80 Respiratory 14 Rate Blood Pressure 152/96 O2 Sat by Pulse 100 100 100 Oximetry 05/11/19 09:33 Temperature Pulse Rate Respiratory 18 Rate Blood Pressure O2 Sat by Pulse 100 Oximetry ED Medical Decision Making - Lab Data Result diagrams: 05/11/19 07:12 05/11/19 07:12 - Medical Decision Making 39-year-old female with known history of lupus flareup since emergency department for another complaint of polyuria arthralgia and pulses possible this evolution. Currently not taking any steroids due to her uncontrolled diabetes ON Michaela L twice a day was was increased by her primary care due [facility] few week if she had to straighten out some insurance issues which she states are now completed. Examination of the findings today did [id number] any acute life-threatening processes. She appears to be having chronic pain flareup and not taken the necessary steps as laid out by her PCP we discussed the importance of compliance. Currently the vital signs are stable with no signs of any infectious processes since he denies any recent trauma. 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 ED Disposition Clinical Impression: Arthralgia, Abdominal pain, Lupus (systemic lupus erythematosus) Disposition: TO HOME OR SELFCARE Is pt being admited?: No Does the pt Need Aspirin: No Condition: Stable Instructions: Abdominal Pain (ED), Arthralgia (ED) Referrals: ALTAGRACIA WREN NP-C [Primary Care Provider] - 3-5 Days
[2019-05-11] MEDS ORDERED: oxyCODONE /ACETAMINOPHEN 5-325MG TAB PO ONE (11:16)
[2019-05-11 11:40] VITALS: BP 149/86
== END 2019-05-11 11:40 | disposition home or self-care (01) ==
LOC: ED 06:47
DX: L93.0 Discoid lupus erythematosus (principal); R10.9 Unspecified abdominal pain; M25.50 Pain in unspecified joint; I10 Essential (primary) hypertension; E11.9 Type 2 diabetes mellitus without complications; F17.200 Nicotine dependence, unspecified, uncomplicated; Z88.8 Allergy status to other drugs, medicaments and biological substances; Z91.012 Allergy to eggs; Z95.5 Presence of coronary angioplasty implant and graft; Z98.890 Other specified postprocedural states; Z79.899 Other long term (current) drug therapy
CPT/HCPCS: 36415; 80053; 81001; 84703; 85025

== ENCOUNTER 2019-05-14 17:29 | Emergency (ER) | payer MEDICARE ==
--- NOTE | 2019-05-14 20:32 | Emergency Department Report ---
Blank Doc - Documentation Documentation: 39-year-old female that presents with lupus flareup. This initial assessment/diagnostic orders/clinical plan/treatment(s) is/are subject to change based on patient's health status, clinical progression and re- assessment by fellow clinical providers in the ED. Further treatment and workup at subsequent clinical providers discretion. Patient/guardians urged not to elope from the ED as their condition may be serious if not clinically assessed and managed. Initial orders include: 1- Patient sent to [facility] for further evaluation and treatment 2- labs 3- UA
[2019-05-14 20:39] VITALS: BP 142/100
[2019-05-14 21:43] LABS: Bilirubin,Urine NEG (Negative); Blood,Urine NEG (Negative); Color,Urine Yellow (Yellow); Mucus,Urine FEW /HPF; Protein,Urine <15 mg/dL mg/dL (Negative); Urobilinogen,Urine < 2.0 mg/dL (<2.0); WBC,Urine < 1.0 /HPF (0.0-6.0)
[2019-05-14 21:51] LABS: Amphetamine Screen,Urine PRESUMPTIVE NEGATIVE; Benzodiazepines Screen,Urine PRESUMPTIVE NEGATIVE; Cocaine Screen,Urine PRESUMPTIVE NEGATIVE; Methadone Screen,Urine PRESUMPTIVE NEGATIVE
[2019-05-14 22:13] LABS: Cannabinoid Screen,Urine PRESUMPTIVE POSITIVE; Opiate Screen,Urine PRESUMPTIVE POSITIVE
[2019-05-14] MEDS ORDERED: ONDANSETRON 4 MG/2 ML INJ IV ONE (22:46)
[2019-05-14] MEDS ORDERED: SODIUM CHLORIDE 0.9% 1000 ML 1,000 ML IV ONE (22:46)
[2019-05-14 23:11] LABS: Hematocrit 34.7 % (30.3-42.9); Hemoglobin 11.5 gm/dl (10.1-14.3); Mean Corpuscular HGB Conc 33 % (30-34); Mean Corpuscular Volume 75 fl (79-97); Platelet Count 266 K/mm3 (140-440); Red Blood Count 4.64 M/mm3 (3.65-5.03); Red Cell Distribution Width 16.8 % (13.2-15.2)
[2019-05-14 23:42] LABS: Alanine Aminotransferase 14 units/L (7-56); Albumin 4.3 g/dL (3.9-5); BUN/Creatinine Ratio 12; Blood Urea Nitrogen 7 mg/dL (7-17); Calcium 9.4 mg/dL (8.4-10.2); Hemolysis Index 1
--- NOTE | 2019-05-14 23:53 | Emergency Department Report ---
ED General Adult HPI - General Chief complaint: Pain General Stated complaint: LUPUS Time Seen by Provider: 05/14/19 19:23 Source: patient Mode of arrival: Ambulatory Limitations: No Limitations - History of Present Illness Initial comments: 39-year-old obese -[place] female with a past medical history of type 2 diabetes, myocardial infarction with cardiac stent 2017, bipolar/schizoaffective disorder, lupus, deficiency anemia, hypertension return to the emergency department complaining of possible lupus flare. Seen by her primary care doctor for symptoms include bodyaches and n/v. Tx with decadron im, she states she left becuase her primary concern is n/v , and now pain. 4/10 bodyache , her uds POS for THC [place] [facility] no records found. pt states pain is 4/10 aching, There is no sob , no swelling, fever, no cp. symptoms are exacerbated by activity, symptoms are relieved by nothing tried eventhough prescribed oxycodone on 04/23/2019, and hydrocodone 04/29/2019. I have advised Ms. Riley that she must get all pain control medications from her pcp and or pain management doctor. She verbalizes understanding of same. Onset/Timin -: week(s) Location: upper extremity, lower extremity Radiation: extremity Severity scale (0 -10): 4 Quality: aching Consistency: constant Improves with: none Worsens with: none Associated Symptoms: malaise Treatments Prior to Arrival: none - Related Data Home Medications Medication Instructions Recorded Confirmed Last Taken lisinopriL [Lisinopril] 20 mg PO DAILY 10/08/17 11/26/17 11/20/17 10:00 Zolpidem [Ambien] 10 mg PO QHS 11/26/17 11/26/17 Unknown Detemir (Nf) [Levemir (Nf)] 60 units SUB-Q HS 11/27/17 11/26/17 Unknown Previous Rx's Medication Instructions Recorded Last Taken Type Aspirin [Aspirin BABY CHEW TAB] 81 mg PO QDAY #30 tab.chew 06/12/17 11/20/17 10:00 Rx Clopidogrel [Plavix] 75 mg PO QDAY #30 tablet 06/12/17 11/20/17 10:00 Rx Hydroxychloroquine [Plaquenil] 200 mg PO QDAY tablet 11/28/17 Unknown Rx Lispro Insulin [HumaLOG] 0 unit SUB-Q ACHS units 11/28/17 Unknown Rx Dicyclomine [Bentyl] 10 mg PO BID #20 capsule 09/01/18 Unknown Rx Fluconazole [Diflucan TAB] 150 mg PO ONCE #2 tablet 09/20/18 Unknown Rx metroNIDAZOLE [Flagyl] 500 mg PO Q12HR #20 tab 09/20/18 Unknown Rx Clindamycin [Clindamycin CAP] 300 mg PO Q6H #21 capsule 11/06/18 Unknown Rx Ibuprofen [Motrin 800 MG tab] 800 mg PO Q8HR PRN #20 tablet 11/06/18 Unknown Rx Acetamin/Codeine 120-12Mg/5 ml 5 ml PO TID #50 ml 11/25/18 Unknown Rx [Tylenol/Codeine] Famotidine [Pepcid] 20 mg PO BID #20 tablet 11/25/18 Unknown Rx Acetaminophen [Acetaminophen TAB] 1,000 mg PO Q6HR PRN #60 tablet 03/26/19 Unknown Rx Ibuprofen [Motrin 800 MG tab] 800 mg PO Q8HR PRN #30 tablet 03/26/19 Unknown Rx predniSONE [Deltasone] 40 mg PO QDAY 5 Days #10 tab 03/26/19 Unknown Rx Blood-Glucose Meter [Glucocard 1 each PRN #1 each 04/05/19 Unknown Rx Shine Connex Meter] Insulin Detemir [Levemir Flextouch] 40 unit SQ QHS #4 insuln.pen 04/05/19 Unknown Rx Insulin Regular, Human [HumuLIN R] 10 unit SQ AC #200 units 04/05/19 Unknown Rx Lancets [Glucocom Lancets] 1 each TID #1 pack 04/05/19 Unknown Rx oxyCODONE /ACETAMINOPHEN [Percocet 1 tab PO Q6HR PRN #10 tablet 04/23/19 Unknown Rx 5/325] Dicyclomine [Bentyl] 20 mg PO QID #10 tablet 04/29/19 Unknown Rx HYDROcodone/APAP 5-325 [[place] 1 each PO Q6HR PRN #10 tablet 04/29/19 Unknown Rx 5/325] Ondansetron [Zofran Odt] 4 mg PO Q8HR #10 tab.rapdis 04/29/19 Unknown Rx Acetaminophen/Codeine [Tylenol 1 tab PO Q6H PRN #12 tab 05/15/19 Unknown Rx /Codeine # 3 tab] Ondansetron [Zofran Odt] 4 mg PO Q8HR PRN #12 tab.rapdis 05/15/19 Unknown Rx Allergies Allergy/AdvReac Type Severity Reaction Status Date / Time egg Allergy Hives Verified 04/01/19 12:51 tramadol HCl [From Ultram] Allergy Hives Verified 04/01/19 12:51 vancomycin Allergy Hives Verified 04/01/19 12:51 ED Review of Systems ROS: Stated complaint: LUPUS Other details as noted in HPI Constitutional: malaise. denies: chills, fever Eyes: denies: eye pain, eye discharge, vision change ENT: denies: ear pain, throat pain Respiratory: denies: cough, shortness of breath, wheezing Cardiovascular: denies: chest pain, palpitations Endocrine: no symptoms reported Gastrointestinal: nausea, vomiting. denies: abdominal pain, diarrhea Genitourinary: denies: urgency, dysuria, discharge Musculoskeletal: back pain, myalgia Skin: denies: rash, lesions Neurological: denies: headache, weakness, paresthesias Psychiatric: denies: anxiety, depression Hematological/Lymphatic: denies: easy bleeding, easy bruising ED Past Medical Hx - Past Medical History Previous Medical History?: Yes Hx Hypertension: Yes Hx CVA: No Hx Heart Attack/AMI: Yes (05/22, cardiac stent x1) Hx Congestive Heart Failure: No Hx Diabetes: Yes (type 2) Hx Deep Vein Thrombosis: No Hx Pulmonary Embolism: No Hx GERD: No Hx Liver Disease: No Hx Renal Disease: No Hx Sickle Cell Disease: No Hx Arthritis: No Hx Headaches / Migraines: No Hx Seizures: No Hx Kidney Stones: No 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 iron deficient anemia - Surgical History Past Surgical History?: Yes Hx Coronary Stent: Yes (x1) Hx Open Heart Surgery: No Hx Pacemaker: No Hx Internal Defibrillator: No Hx Cholecystectomy: No Hx Appendectomy: No Hx Breast Surgery: Yes (breast reduction 05/2004) Additional Surgical History: Breast reduction bilateral,excisional surg. for abscess - Social History Smoking Status: Never Smoker Substance Use Type: None - Medications Home Medications: Home Medications Medication Instructions Recorded Confirmed Last Taken Type Aspirin [Aspirin BABY CHEW TAB] 81 mg PO QDAY #30 tab.chew 06/12/17 11/26/17 11/20/17 10:00 Rx Clopidogrel [Plavix] 75 mg PO QDAY #30 tablet 06/12/17 11/26/17 11/20/17 10:00 Rx lisinopriL [Lisinopril] 20 mg PO DAILY 10/08/17 11/26/17 11/20/17 10:00 History Zolpidem [Ambien] 10 mg PO QHS 11/26/17 11/26/17 Unknown History Detemir (Nf) [Levemir (Nf)] 60 units SUB-Q HS 11/27/17 11/26/17 Unknown History Hydroxychloroquine [Plaquenil] 200 mg PO QDAY tablet 11/28/17 Unknown Rx Lispro Insulin [HumaLOG] 0 unit SUB-Q ACHS units 11/28/17 Unknown Rx Dicyclomine [Bentyl] 10 mg PO BID #20 capsule 09/01/18 Unknown Rx Fluconazole [Diflucan TAB] 150 mg PO ONCE #2 tablet 09/20/18 Unknown Rx metroNIDAZOLE [Flagyl] 500 mg PO Q12HR #20 tab 09/20/18 Unknown Rx Clindamycin [Clindamycin CAP] 300 mg PO Q6H #21 capsule 11/06/18 Unknown Rx Ibuprofen [Motrin 800 MG tab] 800 mg PO Q8HR PRN #20 tablet 11/06/18 Unknown Rx Acetamin/Codeine 120-12Mg/5 ml 5 ml PO TID #50 ml 11/25/18 Unknown Rx [Tylenol/Codeine] Famotidine [Pepcid] 20 mg PO BID #20 tablet 11/25/18 Unknown Rx Acetaminophen [Acetaminophen TAB] 1,000 mg PO Q6HR PRN #60 tablet 03/26/19 Unknown Rx Ibuprofen [Motrin 800 MG tab] 800 mg PO Q8HR PRN #30 tablet 03/26/19 Unknown Rx predniSONE [Deltasone] 40 mg PO QDAY 5 Days #10 tab 03/26/19 Unknown Rx Blood-Glucose Meter [Glucocard 1 each MC PRN #1 each 04/05/19 Unknown Rx Shine Connex Meter] Insulin Detemir [Levemir Flextouch] 40 unit SQ QHS #4 insuln.pen 04/05/19 Unknown Rx Insulin Regular, Human [HumuLIN R] 10 unit SQ AC #200 units 04/05/19 Unknown Rx Lancets [Glucocom Lancets] 1 each MC TID #1 pack 04/05/19 Unknown Rx oxyCODONE /ACETAMINOPHEN [Percocet 1 tab PO Q6HR PRN #10 tablet 04/23/19 Unknown Rx 5/325] Dicyclomine [Bentyl] 20 mg PO QID #10 tablet 04/29/19 Unknown Rx HYDROcodone/APAP 5-325 [[place] 1 each PO Q6HR PRN #10 tablet 04/29/19 Unknown Rx 5/325] Ondansetron [Zofran Odt] 4 mg PO Q8HR #10 tab.rapdis 04/29/19 Unknown Rx Acetaminophen/Codeine [Tylenol 1 tab PO Q6H PRN #12 tab 05/15/19 Unknown Rx /Codeine # 3 tab] Ondansetron [Zofran Odt] 4 mg PO Q8HR PRN #12 tab.rapdis 05/15/19 Unknown Rx ED Physical Exam - General Limitations: No Limitations General appearance: alert, in no apparent distress - Head Head exam: Present: atraumatic, normocephalic - Eye Eye exam: Present: normal appearance, PERRL, EOMI Pupils: Present: normal accommodation - ENT ENT exam: Present: mucous membranes moist - Neck Neck exam: Present: normal inspection, full ROM. Absent: tenderness, lymphadenopathy - Respiratory Respiratory exam: Present: normal lung sounds bilaterally. Absent: respiratory distress, wheezes, stridor, chest wall tenderness - Cardiovascular Cardiovascular Exam: Present: regular rate, normal rhythm, normal heart sounds. Absent: systolic murmur, diastolic murmur, rubs, gallop - GI/Abdominal GI/Abdominal exam: Present: soft, normal bowel sounds. Absent: distended, tenderness, bruit, hernia - Rectal Rectal exam: Present: deferred - Extremities Exam Extremities exam: Present: normal inspection, full ROM, normal capillary refill. Absent: tenderness, pedal edema, joint swelling - Back Exam Back exam: Present: normal inspection, full ROM. Absent: tenderness, CVA tenderness (R), CVA tenderness (L) - Neurological Exam Neurological exam: Present: alert, oriented X3, CN II-XII intact, normal gait, reflexes normal - Psychiatric Psychiatric exam: Present: normal affect - Skin Skin exam: Present: warm, dry, intact, normal color. Absent: rash ED Course Vital Signs 05/14/19 17:33 Temperature 98.6 F Pulse Rate 82 Respiratory 18 Rate Blood Pressure 142/100 O2 Sat by Pulse 100 Oximetry ED Medical Decision Making - Lab Data Result diagrams: 05/14/19 22:39 05/14/19 22:39 Lab Results 05/14/19 05/14/19 05/14/19 Range/Units 21:27 21:27 22:39 WBC 11.4 H (4.5-11.0) K/mm3 RBC 4.64 (3.65-5.03) M/mm3 Hgb 11.5 (10.1-14.3) gm/dl Hct 34.7 (30.3-42.9) % MCV 75 L (79-97) fl MCH 25 L (28-32) pg MCHC 33 (30-34) % RDW 16.8 H (13.2-15.2) % Plt Count 266 (140-440) K/mm3 Seg Neutrophils % Deputy Clerk Of Court Sodium (137-145) mmol/L Potassium (3.6-5.0) mmol/L Chloride (98-107) mmol/L Carbon Dioxide (22-30) mmol/L Anion Gap mmol/L BUN (7-17) mg/dL Creatinine (0.7-1.2) mg/dL Estimated GFR ml/min BUN/Creatinine Ratio % Glucose (65-100) mg/dL Calcium (8.4-10.2) mg/dL Total Bilirubin (0.1-1.2) mg/dL AST (5-40) units/L ALT (7-56) units/L Alkaline Phosphatase (35-129) units/L Total Protein (6.3-8.2) g/dL Albumin (3.9-5) g/dL Albumin/Globulin Ratio % HCG, Qual (Negative) Urine Color Yellow (Yellow) Urine Turbidity Clear (Clear) Urine pH 7.0 (5.0-7.0) Ur Specific [place] 1.016 (1.003-1.030) Urine Protein <15 mg/dl (Negative) mg/dL Urine Glucose (UA) >=500 (Negative) mg/dL Urine Ketones Neg (Negative) mg/dL Urine Blood Neg (Negative) Urine Nitrite Neg (Negative) Urine Bilirubin Neg (Negative) Urine Urobilinogen < 2.0 (<2.0) mg/dL Ur Leukocyte Esterase Neg (Negative) Urine WBC (Auto) < 1.0 (0.0-6.0) /HPF Urine RBC (Auto) 3.0 (0.0-6.0) /HPF U Epithel Cells (Auto) 3.0 (0-13.0) /HPF Urine Mucus Few /HPF Urine Opiates Screen Presumptive positive Urine Methadone Screen Presumptive negative Ur Barbiturates Screen Presumptive negative Ur Phencyclidine Scrn Presumptive negative Ur Amphetamines Screen Presumptive negative U Benzodiazepines Scrn Presumptive negative Urine Cocaine Screen Presumptive negative U Marijuana (THC) Screen Presumptive positive Drugs of Abuse Note Disclamer 05/14/19 05/14/19 Range/Units 22:39 22:39 WBC (4.5-11.0) K/mm3 RBC (3.65-5.03) M/mm3 Hgb (10.1-14.3) gm/dl Hct (30.3-42.9) % MCV (79-97) fl MCH (28-32) pg MCHC (30-34) % RDW (13.2-15.2) % Plt Count (140-440) K/mm3 Seg Neutrophils % Sodium 139 (137-145) mmol/L Potassium 4.4 (3.6-5.0) mmol/L Chloride 104.8 (98-107) mmol/L Carbon Dioxide 18 L (22-30) mmol/L Anion Gap 21 mmol/L BUN 7 (7-17) mg/dL Creatinine 0.6 L (0.7-1.2) mg/dL Estimated GFR > 60 ml/min BUN/Creatinine Ratio 12 % Glucose 292 H (65-100) mg/dL Calcium 9.4 (8.4-10.2) mg/dL Total Bilirubin 0.30 (0.1-1.2) mg/dL AST 14 (5-40) units/L ALT 14 (7-56) units/L Alkaline Phosphatase 87 (35-129) units/L Total Protein 7.7 (6.3-8.2) g/dL Albumin 4.3 (3.9-5) g/dL Albumin/Globulin Ratio 1.3 % HCG, Qual Negative (Negative) Urine Color (Yellow) Urine Turbidity (Clear) Urine pH (5.0-7.0) Ur Specific [place] (1.003-1.030) Urine Protein (Negative) mg/dL Urine Glucose (UA) (Negative) mg/dL Urine Ketones (Negative) mg/dL Urine Blood (Negative) Urine Nitrite (Negative) Urine Bilirubin (Negative) Urine Urobilinogen (<2.0) mg/dL Ur Leukocyte Esterase (Negative) Urine WBC (Auto) (0.0-6.0) /HPF Urine RBC (Auto) (0.0-6.0) /HPF U Epithel Cells (Auto) (0-13.0) /HPF Urine Mucus /HPF Urine Opiates Screen Urine Methadone Screen Ur Barbiturates Screen Ur Phencyclidine Scrn Ur Amphetamines Screen U Benzodiazepines Scrn Urine Cocaine Screen U Marijuana (THC) Screen Drugs of Abuse Note - Medical Decision Making pt had negative ct abd pelvis, and us abd in apr 2019, pt is tolerating po intake, does not appear toxic, is in nad, vital signs stable, plan dc to home with rx for zofran prn, tylenol #3, follow up with primary care doctor, and rheumotologist in 2-3 days. pt verbalized agreement and understanding of same. Talke all medications as prescribed including placquanil Critical care attestation.: If time is entered above; I have spent that time in minutes in the direct care of this critically ill patient, excluding procedure time. ED Disposition Clinical Impression: Body aches Arthralgia Qualifiers: Joint pain location: unspecified Qualified Code(s): M25.50 - Pain in unspecified joint Disposition: DC-01 TO HOME OR SELFCARE Is pt being admited?: No Does the pt Need Aspirin: No Condition: Stable Instructions: Arthralgia (ED), Musculoskeletal Pain (ED) Prescriptions: Acetaminophen/Codeine [Tylenol /Codeine # 3 tab] 1 tab PO Q6H PRN #12 tab PRN Reason: Pain , Severe (7-10) Ondansetron [Zofran Odt] 4 mg PO Q8HR PRN #12 tab.rapdis PRN Reason: Nausea And Vomiting Referrals: PRIMARY CARE,MD [Primary Care Provider] - 3-5 Days Forms: Work/School Release Form(ED) Time of Disposition: 00:19
[2019-05-15] MEDS ORDERED: MORPHINE 4 MG/1 ML INJ IM ONE (00:02)
[2019-05-15] MEDS ORDERED: MORPHINE 4 MG/1 ML INJ ONE (00:04)
[2019-05-15 00:14] LABS: Basophils % (Manual) 0 % (0.0-1.8); Eosinophils % (Manual) 0 % (0.0-4.3); Monocytes % (Manual) 0 % (0.0-7.3); Total Cells Counted 100
[2019-05-15 00:15] LABS: Hypochromasia 1+; Platelet Estimate Consistent w Auto
== END 2019-05-15 00:30 | disposition home or self-care (01) ==
LOC: ED 17:29
DX: M25.50 Pain in unspecified joint (principal); I10 Essential (primary) hypertension; E11.9 Type 2 diabetes mellitus without complications; F25.0 Schizoaffective disorder, bipolar type; Z98.890 Other specified postprocedural states; Z79.1 Long term (current) use of non-steroidal anti-inflammatories (NSAID); Z79.899 Other long term (current) drug therapy; Z91.012 Allergy to eggs; Z88.8 Allergy status to other drugs, medicaments and biological substances
CPT/HCPCS: 36415; 80053; 80307; 81001; 84703; 85007; 85025; 96372; 96374; 99283; J2270; J2405; J7030

== ENCOUNTER 2019-05-19 09:38 | Emergency (ER) | payer MEDICARE ==
[2019-05-19 09:47] VITALS: BP 142/88
== END 2019-05-19 11:46 | disposition left against medical advice (07) ==
LOC: ED 09:38
DX: R10.30 Lower abdominal pain, unspecified (principal); Z53.21 Procedure and treatment not carried out due to patient leaving prior to being seen by health care provider

== ENCOUNTER 2019-05-20 19:24 | Emergency (ER) | payer MEDICARE ==
--- NOTE | 2019-05-20 21:35 | Emergency Department Report ---
Chief Complaint: Hyperglycemia Stated Complaint: HYPERGLYCEMIA - HPI History of Present Illness: 39 y.o. female with a history of lupus on steroids, and diabetes on insulin presents with elevated blood glucose. Patient complains of dizzy spells. Patient complains of aches in feet. Patient has had no fever. Patient has no chest pain or shortness of breath. Patient complains of polyuria and polydipsia. Patient states that she is compliant with her insulin therapy. Patient states that her blood glucose was 450 and she drank water prior to arrival. - Exam Vital Signs: Vital Signs 05/20/19 19:49 Temperature 98.2 F Pulse Rate 78 Respiratory 18 Rate Blood Pressure 147/93 O2 Sat by Pulse 99 Oximetry MSE screening note: Focused history and physical exam performed. Due to findings the following was ordered: patient to have cbc, cmp, and urinalysis performed. Current Accucheck is 258. ED Disposition for MSE Condition: Stable
--- NOTE | 2019-05-20 22:56 | Emergency Department Report ---
ED General Adult HPI - General Chief complaint: Hyperglycemia Stated complaint: HYPERGLYCEMIA Time Seen by Provider: 05/20/19 22:12 Source: patient Mode of arrival: Ambulatory Limitations: No Limitations - History of Present Illness Initial comments: 39 y.o. female with a history of lupus on steroids, and diabetes on insulin presents with elevated blood glucose. Patient complains of dizzy spells. Patient complains of aches in feet. Patient has had no fever. Patient has no chest pain or shortness of breath. Patient complains of polyuria and polydipsia. Patient states that she is compliant with her insulin therapy. Patient states that her blood glucose was 450 and she drank water prior to arrival. - Related Data Home Medications Medication Instructions Recorded Confirmed Last Taken lisinopriL [Lisinopril] 20 mg PO DAILY 10/08/17 11/26/17 11/20/17 10:00 Zolpidem [Ambien] 10 mg PO QHS 11/26/17 11/26/17 Unknown Detemir (Nf) [Levemir (Nf)] 60 units SUB-Q HS 11/27/17 11/26/17 Unknown Previous Rx's Medication Instructions Recorded Last Taken Type Aspirin [Aspirin BABY CHEW TAB] 81 mg PO QDAY #30 tab.chew 06/12/17 11/20/17 10:00 Rx Clopidogrel [Plavix] 75 mg PO QDAY #30 tablet 06/12/17 11/20/17 10:00 Rx Hydroxychloroquine [Plaquenil] 200 mg PO QDAY tablet 11/28/17 Unknown Rx Lispro Insulin [HumaLOG] 0 unit SUB-Q ACHS units 11/28/17 Unknown Rx Dicyclomine [Bentyl] 10 mg PO BID #20 capsule 09/01/18 Unknown Rx Fluconazole [Diflucan TAB] 150 mg PO ONCE #2 tablet 09/20/18 Unknown Rx metroNIDAZOLE [Flagyl] 500 mg PO Q12HR #20 tab 09/20/18 Unknown Rx Clindamycin [Clindamycin CAP] 300 mg PO Q6H #21 capsule 11/06/18 Unknown Rx Ibuprofen [Motrin 800 MG tab] 800 mg PO Q8HR PRN #20 tablet 11/06/18 Unknown Rx Acetamin/Codeine 120-12Mg/5 ml 5 ml PO TID #50 ml 11/25/18 Unknown Rx [Tylenol/Codeine] Famotidine [Pepcid] 20 mg PO BID #20 tablet 11/25/18 Unknown Rx Acetaminophen [Acetaminophen TAB] 1,000 mg PO Q6HR PRN #60 tablet 03/26/19 Un known Rx Ibuprofen [Motrin 800 MG tab] 800 mg PO Q8HR PRN #30 tablet 03/26/19 Unknown Rx predniSONE [Deltasone] 40 mg PO QDAY 5 Days #10 tab 03/26/19 Unknown Rx Blood-Glucose Meter [Glucocard 1 each MC PRN #1 each 04/05/19 Unknown Rx Shine Connex Meter] Insulin Detemir [Levemir Flextouch] 40 unit SQ QHS #4 insuln.pen 04/05/19 Unknown Rx Insulin Regular, Human [HumuLIN R] 10 unit SQ AC #200 units 04/05/19 Unknown Rx Lancets [Glucocom Lancets] 1 each MC TID #1 pack 04/05/19 Unknown Rx oxyCODONE /ACETAMINOPHEN [Percocet 1 tab PO Q6HR PRN #10 tablet 04/23/19 Unknown Rx 5/325] Dicyclomine [Bentyl] 20 mg PO QID #10 tablet 04/29/19 Unknown Rx HYDROcodone/APAP 5-325 [[place] 1 each PO Q6HR PRN #10 tablet 04/29/19 Unknown Rx 5/325] Ondansetron [Zofran Odt] 4 mg PO Q8HR #10 tab.rapdis 04/29/19 Unknown Rx Acetaminophen/Codeine [Tylenol 1 tab PO Q6H PRN #12 tab 05/15/19 Unknown Rx /Codeine # 3 tab] Ondansetron [Zofran Odt] 4 mg PO Q8HR PRN #12 tab.rapdis 05/15/19 Unknown Rx Allergies Allergy/AdvReac Type Severity Reaction Status Date / Time egg Allergy Hives Verified 04/01/19 12:51 tramadol HCl [From Ultram] Allergy Hives Verified 04/01/19 12:51 vancomycin Allergy Hives Verified 04/01/19 12:51 ED Review of Systems ROS: Stated complaint: HYPERGLYCEMIA Other details as noted in HPI Constitutional: denies: chills, fever Eyes: denies: eye pain, eye discharge, vision change ENT: denies: ear pain, throat pain Respiratory: denies: cough, shortness of breath, wheezing Cardiovascular: denies: chest pain, palpitations Endocrine: increased thirst, increased urine Gastrointestinal: denies: abdominal pain, nausea, diarrhea Genitourinary: denies: urgency, dysuria, discharge Musculoskeletal: denies: back pain, joint swelling, arthralgia Skin: denies: rash, lesions Neurological: denies: headache, weakness, paresthesias Psychiatric: denies: anxiety, depression Hematological/Lymphatic: denies: easy bleeding, easy bruising ED Past Medical Hx - Past Medical History Previous Medical History?: Yes Hx Hypertension: Yes Hx CVA: No Hx Heart Attack/AMI: (05/22, cardiac stent x1) Hx Congestive Heart Failure: No Hx Diabetes: Yes (type 2) Hx Deep Vein Thrombosis: No Hx Pulmonary Embolism: No Hx GERD: No Hx Liver Disease: No Hx Renal Disease: No Hx Sickle Cell Disease: No Hx Arthritis: No Hx Headaches / Migraines: No Hx Seizures: No Hx Kidney Stones: No 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 iron deficient anemia - Surgical History Past Surgical History?: Yes Hx Coronary Stent: Yes (x1) Hx Open Heart Surgery: No Hx Pacemaker: No Hx Internal Defibrillator: No Hx Cholecystectomy: No Hx Appendectomy: No Hx Breast Surgery: Yes (breast reduction 05/2004) Additional Surgical History: Breast reduction bilateral,excisional surg. for abscess - Social History Smoking Status: Current Every Day Smoker Substance Use Type: Marijuana - Medications Home Medications: Home Medications Medication Instructions Recorded Confirmed Last Taken Type Aspirin [Aspirin BABY CHEW TAB] 81 mg PO QDAY #30 tab.chew 06/12/17 11/26/17 10:00 Rx Clopidogrel [Plavix] 75 mg PO QDAY #30 tablet 06/12/17 11/26/17 11/20/17 10:00 Rx lisinopriL [Lisinopril] 20 mg PO DAILY 10/08/17 11/26/17 11/20/17 10:00 History Zolpidem [Ambien] 10 mg PO QHS 11/26/17 11/26/17 Unknown History Detemir (Nf) [Levemir (Nf)] 60 units SUB-Q HS 11/27/17 11/26/17 Unknown History Hydroxychloroquine [Plaquenil] 200 mg PO QDAY tablet 11/28/17 Unknown Rx Lispro Insulin [HumaLOG] 0 unit SUB-Q ACHS units 11/28/17 Unknown Rx Dicyclomine [Bentyl] 10 mg PO BID #20 capsule 09/01/18 Unknown Rx Fluconazole [Diflucan TAB] 150 mg PO ONCE #2 tablet 09/20/18 Unknown Rx metroNIDAZOLE [Flagyl] 500 mg PO Q12HR #20 tab 09/20/18 Unknown Rx Clindamycin [Clindamycin CAP] 300 mg PO Q6H #21 capsule 11/06/18 Unknown Rx Ibuprofen [Motrin 800 MG tab] 800 mg PO Q8HR PRN #20 tablet 11/06/18 Unknown Rx Acetamin/Codeine 120-12Mg/5 ml 5 ml PO TID #50 ml 11/25/18 Unknown Rx [Tylenol/Codeine] Famotidine [Pepcid] 20 mg PO BID #20 tablet 11/25/18 Unknown Rx Acetaminophen [Acetaminophen TAB] 1,000 mg PO Q6HR PRN #60 tablet 03/26/19 U nknown Rx Ibuprofen [Motrin 800 MG tab] 800 mg PO Q8HR PRN #30 tablet 03/26/19 Unknown Rx predniSONE [Deltasone] 40 mg PO QDAY 5 Days #10 tab 03/26/19 Unknown Rx Blood-Glucose Meter [Glucocard 1 each MC PRN #1 each 04/05/19 Unknown Rx Shine Connex Meter] Insulin Detemir [Levemir Flextouch] 40 unit SQ QHS #4 insuln.pen 04/05/19 Unknown Rx Insulin Regular, Human [HumuLIN R] 10 unit SQ AC #200 units 04/05/19 Unknown Rx Lancets [Glucocom Lancets] 1 each MC TID #1 pack 04/05/19 Unknown Rx oxyCODONE /ACETAMINOPHEN [Percocet 1 tab PO Q6HR PRN #10 tablet 04/23/19 Unknown Rx 5/325] Dicyclomine [Bentyl] 20 mg PO QID #10 tablet 04/29/19 Unknown Rx HYDROcodone/APAP 5-325 [[place] 1 each PO Q6HR PRN #10 tablet 04/29/19 Unknown Rx 5/325] Ondansetron [Zofran Odt] 4 mg PO Q8HR #10 tab.rapdis 04/29/19 Unknown Rx Acetaminophen/Codeine [Tylenol 1 tab PO Q6H PRN #12 tab 05/15/19 Unknown Rx /Codeine # 3 tab] Ondansetron [Zofran Odt] 4 mg PO Q8HR PRN #12 tab.rapdis 05/15/19 Unknown Rx ED Physical Exam - General Limitations: No Limitations General appearance: alert, in no apparent distress - Head Head exam: Present: atraumatic, normocephalic - Eye Eye exam: Present: normal appearance - ENT ENT exam: Present: mucous membranes moist - Neck Neck exam: Present: normal inspection - Respiratory Respiratory exam: Present: normal lung sounds bilaterally. Absent: respiratory distress - Cardiovascular Cardiovascular Exam: Present: regular rate, normal rhythm. Absent: systolic murmur, diastolic murmur, rubs, gallop - GI/Abdominal GI/Abdominal exam: Present: soft, normal bowel sounds - Extremities Exam Extremities exam: Present: normal inspection - Back Exam Back exam: Present: normal inspection - Neurological Exam Neurological exam: Present: alert, oriented X3 - Psychiatric Psychiatric exam: Present: normal affect, normal mood - Skin Skin exam: Present: warm, dry, intact, normal color. Absent: rash ED Course Vital Signs 05/20/19 05/20/19 05/20/19 19:49 22:12 23:27 Temperature 98.2 F 97.5 F L Pulse Rate 78 68 68 Respiratory 18 16 Rate Blood Pressure 147/93 Blood Pressure 133/83 [Left] O2 Sat by Pulse 99 98 Oximetry 05/20/19 05/20/19 23:30 23:46 Temperature Pulse Rate 67 64 Respiratory 14 Rate Blood Pressure 135/90 Blood Pressure [Left] O2 Sat by Pulse Oximetry ED Medical Decision Making - Lab Data Result diagrams: 05/20/19 23:47 05/20/19 23:47 - Medical Decision Making Patient ambulatory and in no acute distress. Patient shows no evidence of DKA. Patient states she is on Percocet therapy at home for pain relief. Patient given Tylenol therapy will be discharged. - Differential Diagnosis DKA; dehydration; anemia; electrolyte abnormality; Critical care attestation.: If time is entered above; I have spent that time in minutes in the direct care of this critically ill patient, excluding procedure time. ED Disposition Clinical Impression: Diabetes mellitus with hyperglycemia, Lupus (systemic lupus erythematosus) Disposition: DC-01 TO HOME OR SELFCARE Is pt being admited?: No Does the pt Need Aspirin: No Condition: Stable Instructions: Diabetes Mellitus Type 2 in Adults (ED) Referrals: ALTAGRACIA WREN NP-C [Primary Care Provider] - 3-5 Days Time of Disposition: 00:53 Print Language: FRISIAN
[2019-05-20 23:27] LABS: Bilirubin,Urine NEG (Negative); Blood,Urine MOD (Negative); Color,Urine Yellow (Yellow); HCG Qualitative,Urine Negative (Negative); Mucus,Urine FEW /HPF; Protein,Urine <15 mg/dL mg/dL (Negative); Urobilinogen,Urine < 2.0 mg/dL (<2.0); WBC,Urine < 1.0 /HPF (0.0-6.0)
[2019-05-20 23:57] VITALS: BP 135/90
[2019-05-21 00:02] LABS: Basophils % (Auto) 0.5 % (0.0-1.8); Eosinophils # (Auto) 0.1 K/mm3 (0.0-0.4); Hematocrit 34.1 % (30.3-42.9); Hemoglobin 10.9 gm/dl (10.1-14.3); Lymphocytes # (Auto) 2.9 K/mm3 (1.2-5.4); Lymphocytes % (Auto) 33.5 % (13.4-35.0); Mean Corpuscular HGB Conc 32 % (30-34); Mean Corpuscular Volume 76 fl (79-97); Monocytes # (Auto) 0.5 K/mm3 (0.0-0.8); Platelet Count 244 K/mm3 (140-440); Red Blood Count 4.51 M/mm3 (3.65-5.03); Red Cell Distribution Width 16.3 % (13.2-15.2)
[2019-05-21 00:26] LABS: Alanine Aminotransferase 10 units/L (7-56); Albumin 3.9 g/dL (3.9-5); BUN/Creatinine Ratio 11; Blood Urea Nitrogen 8 mg/dL (7-17); Calcium 9.1 mg/dL (8.4-10.2); Hemolysis Index 9
[2019-05-21] MEDS ORDERED: ACETAMINOPHEN 325 MG TAB PO ONE (00:51)
== END 2019-05-21 01:24 | disposition home or self-care (01) ==
LOC: ED 19:24
DX: E11.65 Type 2 diabetes mellitus with hyperglycemia (principal); M32.9 Systemic lupus erythematosus, unspecified; I10 Essential (primary) hypertension; E11.9 Type 2 diabetes mellitus without complications; Z95.5 Presence of coronary angioplasty implant and graft; Z88.8 Allergy status to other drugs, medicaments and biological substances; Z79.899 Other long term (current) drug therapy
CPT/HCPCS: 36415; 80053; 81001; 81025; 82962; 85025

== ENCOUNTER 2019-06-29 08:28 | Emergency (ER) | payer MEDICARE ==
[2019-06-29] MEDS ORDERED: ONDANSETRON 4 MG/2 ML INJ IV ONE (09:17)
[2019-06-29] MEDS ORDERED: MORPHINE 4 MG/1 ML INJ IV ONE (09:17)
[2019-06-29] MEDS ORDERED: SODIUM CHLORIDE 0.9% 1000 ML 1,000 ML IV ONE (09:17)
--- NOTE | 2019-06-29 10:01 | Emergency Department Report ---
ED General Adult HPI - General Chief complaint: Pain General Stated complaint: LUPUS FLARE UP/NAUSEA/WEAK Time Seen by Provider: 06/29/19 09:04 Source: patient Mode of arrival: Ambulatory Limitations: No Limitations - History of Present Illness Initial comments: Patient is a 39-year-old female who presents emergency room with complaints of a lupus flare for the last 4 days. She states that she has generalized fatigue, generalized joint pain, subjective fever, urinary frequency, intermittent nausea and vomiting. She states that she has had approximately 5 episodes of vomiting over the last 4 days. She is able to tolerate p.o. intake. She denies any diarrhea, dysuria, abdominal pain, chest pain, cough, shortness of breath. She has a past medical history of diabetes and lupus. She states that she is currently on prednisone 20 mg twice daily. She has not yet seen her certified nurses aide in a while. She denies any recent travel or sick contacts. - Related Data Home Medications Medication Instructions Recorded Confirmed Last Taken lisinopriL [Lisinopril] 20 mg PO DAILY 10/08/17 11/26/17 11/20/17 10:00 Zolpidem [Ambien] 10 mg PO QHS 11/26/17 11/26/17 Unknown Detemir (Nf) [Levemir (Nf)] 60 units SUB-Q HS 11/27/17 11/26/17 Unknown Previous Rx's Medication Instructions Recorded Last Taken Type Aspirin [Aspirin BABY CHEW TAB] 81 mg PO QDAY #30 tab.chew 06/12/17 11/20/17 10:00 Rx Clopidogrel [Plavix] 75 mg PO QDAY #30 tablet 06/12/17 11/20/17 10:00 Rx Hydroxychloroquine [Plaquenil] 200 mg PO QDAY tablet 11/28/17 Unknown Rx Lispro Insulin [HumaLOG] 0 unit SUB-Q ACHS units 11/28/17 Unknown Rx Dicyclomine [Bentyl] 10 mg PO BID #20 capsule 09/01/18 Unknown Rx Fluconazole [Diflucan TAB] 150 mg PO ONCE #2 tablet 09/20/18 Unknown Rx metroNIDAZOLE [Flagyl] 500 mg PO Q12HR #20 tab 09/20/18 Unknown Rx Clindamycin [Clindamycin CAP] 300 mg PO Q6H #21 capsule 11/06/18 Unknown Rx Ibuprofen [Motrin 800 MG tab] 800 mg PO Q8HR PRN #20 tablet 11/06/18 Unknown Rx Acetamin/Codeine 120-12Mg/5 ml 5 ml PO TID #50 ml 11/25/18 Unknown Rx [Tylenol/Codeine] Famotidine [Pepcid] 20 mg PO BID #20 tablet 11/25/18 Unknown Rx Acetaminophen [Acetaminophen TAB] 1,000 mg PO Q6HR PRN #60 tablet 03/26/19 Unknown Rx Ibuprofen [Motrin 800 MG tab] 800 mg PO Q8HR PRN #30 tablet 03/26/19 Unknown Rx predniSONE [Deltasone] 40 mg PO QDAY 5 Days #10 tab 03/26/19 Unknown Rx Blood-Glucose Meter [Glucocard 1 each MC PRN #1 each 04/05/19 Unknown Rx Shine Connex Meter] Insulin Detemir [Levemir Flextouch] 40 unit SQ QHS #4 insuln.pen 04/05/19 Unknow n Rx Insulin Regular, Human [HumuLIN R] 10 unit SQ AC #200 units 04/05/19 Unknown Rx Lancets [Glucocom Lancets] 1 each MC TID #1 pack 04/05/19 Unknown Rx oxyCODONE /ACETAMINOPHEN [Percocet 1 tab PO Q6HR PRN #10 tablet 04/23/19 Unknown Rx 5/325] Dicyclomine [Bentyl] 20 mg PO QID #10 tablet 04/29/19 Unknown Rx HYDROcodone/APAP 5-325 [[place] 1 each PO Q6HR PRN #10 tablet 04/29/19 Unknown Rx 5/325] Ondansetron [Zofran Odt] 4 mg PO Q8HR #10 tab.rapdis 04/29/19 Unknown Rx Acetaminophen/Codeine [Tylenol 1 tab PO Q6H PRN #12 tab 05/15/19 Unknown Rx /Codeine # 3 tab] Ondansetron [Zofran Odt] 4 mg PO Q8HR PRN #12 tab.rapdis 05/15/19 Unknown Rx Ondansetron [Zofran Odt] 4 mg PO Q8HR PRN #10 tab.rapdis 06/29/19 Unknown Rx Allergies Allergy/AdvReac Type Severity Reaction Status Date / Time egg Allergy Hives Verified 04/01/19 12:51 tramadol HCl [From Ultram] Allergy Hives Verified 04/01/19 12:51 vancomycin Allergy Hives Verified 04/01/19 12:51 ED Review of Systems ROS: Stated complaint: LUPUS FLARE UP/NAUSEA/WEAK Other details as noted in HPI Comment: All other systems reviewed and negative ED Past Medical Hx - Past Medical History Hx Hypertension: Yes Hx CVA: No Hx Heart Attack/AMI: (05/22, cardiac stent x1) Hx Congestive Heart Failure: No Hx Diabetes: Yes (type 2) Hx Deep Vein Thrombosis: No Hx Pulmonary Embolism: No Hx GERD: No Hx Liver Disease: No Hx Renal Disease: No Hx Sickle Cell Disease: No Hx Arthritis: No Hx Headaches / Migraines: No Hx Seizures: No Hx Kidney Stones: No 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 iron deficient anemia - Surgical History Hx Coronary Stent: Yes (x1) Hx Open Heart Surgery: No Hx Pacemaker: No Hx Internal Defibrillator: No Hx Cholecystectomy: No Hx Appendectomy: No Hx Breast Surgery: Yes (breast reduction 05/2004) Additional Surgical History: Breast reduction bilateral,excisional surg. for abscess - Social History Smoking Status: Current Every Day Smoker Substance Use Type: Alcohol - Medications Home Medications: Home Medications Medication Instructions Recorded Confirmed Last Taken Type Aspirin [Aspirin BABY CHEW TAB] 81 mg PO QDAY #30 tab.chew 06/12/17 11/26/17 11/20/17 10:00 Rx Clopidogrel [Plavix] 75 mg PO QDAY #30 tablet 06/12/17 11/26/17 11/20/17 10:00 Rx lisinopriL [Lisinopril] 20 mg PO DAILY 10/08/17 11/26/17 11/20/17 10:00 History Zolpidem [Ambien] 10 mg PO QHS 11/26/17 11/26/17 Unknown History Detemir (Nf) [Levemir (Nf)] 60 units SUB-Q HS 11/27/17 11/26/17 Unknown History Hydroxychloroquine [Plaquenil] 200 mg PO QDAY tablet 11/28/17 Unknown Rx Lispro Insulin [HumaLOG] 0 unit SUB-Q ACHS units 08/27/18 Unknown Rx Dicyclomine [Bentyl] 10 mg PO BID #20 capsule 09/01/18 Unknown Rx Fluconazole [Diflucan TAB] 150 mg PO ONCE #2 tablet 09/20/18 Unknown Rx metroNIDAZOLE [Flagyl] 500 mg PO Q12HR #20 tab 09/20/18 Unknown Rx Clindamycin [Clindamycin CAP] 300 mg PO Q6H #21 capsule 11/06/18 Unknown Rx Ibuprofen [Motrin 800 MG tab] 800 mg PO Q8HR PRN #20 tablet 11/06/18 Unknown Rx Acetamin/Codeine 120-12Mg/5 ml 5 ml PO TID #50 ml 11/25/18 Unknown Rx [Tylenol/Codeine] Famotidine [Pepcid] 20 mg PO BID #20 tablet 11/25/18 Unknown Rx Acetaminophen [Acetaminophen TAB] 1,000 mg PO Q6HR PRN #60 tablet 03/26/19 Unknown Rx Ibuprofen [Motrin 800 MG tab] 800 mg PO Q8HR PRN #30 tablet 03/26/19 Unknown Rx predniSONE [Deltasone] 40 mg PO QDAY 5 Days #10 tab 03/26/19 Unknown Rx Blood-Glucose Meter [Glucocard 1 each PRN #1 each 04/05/19 Unknown Rx Shine Connex Meter] Insulin Detemir [Levemir Flextouch] 40 unit SQ QHS #4 insuln.pen 04/05/19 Unknown Rx Insulin Regular, Human [HumuLIN R] 10 unit SQ AC #200 units 04/05/19 Unknown Rx Lancets [Glucocom Lancets] 1 each TID #1 pack 04/05/19 Unknown Rx oxyCODONE /ACETAMINOPHEN [Percocet 1 tab PO Q6HR PRN #10 tablet 04/23/19 Unknown Rx 5/325] Dicyclomine [Bentyl] 20 mg PO QID #10 tablet 04/29/19 Unknown Rx HYDROcodone/APAP 5-325 [[place] 1 each PO Q6HR PRN #10 tablet 04/29/19 Unknown Rx 5/325] Ondansetron [Zofran Odt] 4 mg PO Q8HR #10 tab.rapdis 04/29/19 Unknown Rx Acetaminophen/Codeine [Tylenol 1 tab PO Q6H PRN #12 tab 05/15/19 Unknown Rx /Codeine # 3 tab] Ondansetron [Zofran Odt] 4 mg PO Q8HR PRN #12 tab.rapdis 05/15/19 Unknown Rx Ondansetron [Zofran Odt] 4 mg PO Q8HR PRN #10 tab.rapdis 06/29/19 Unknown Rx ED Physical Exam - General Limitations: No Limitations General appearance: alert, in no apparent distress - Head Head exam: Present: atraumatic, normocephalic - Eye Eye exam: Present: normal appearance - ENT ENT exam: Present: mucous membranes moist - Respiratory Respiratory exam: Present: normal lung sounds bilaterally. Absent: respiratory distress, wheezes, rales, rhonchi, stridor, chest wall tenderness, accessory muscle use, decreased breath sounds, prolonged expiratory - Cardiovascular Cardiovascular Exam: Present: regular rate, normal rhythm, normal heart sounds. Absent: systolic murmur, diastolic murmur, rubs, gallop - GI/Abdominal GI/Abdominal exam: Present: soft, normal bowel sounds. Absent: distended, tenderness, guarding, rebound, rigid - Extremities Exam Extremities exam: Present: normal inspection, normal capillary refill. Absent: pedal edema, joint swelling - Neurological Exam Neurological exam: Present: alert, oriented X3 - Psychiatric Psychiatric exam: Present: normal affect, normal mood - Skin Skin exam: Present: warm, dry, intact ED Course Vital Signs 06/29/19 06/29/19 06/29/19 08:33 10:01 12:05 Temperature 98.5 F Pulse Rate 75 72 Respiratory 20 18 18 Rate Blood Pressure 136/104 Blood Pressure 129/96 [Left] O2 Sat by Pulse 100 99 Oximetry ED Medical Decision Making - Lab Data Result diagrams: 06/29/19 09:25 06/29/19 09:25 Lab Results 06/29/19 06/29/19 06/29/19 Range/Units 09:25 09:25 Unknown WBC 7.9 (4.5-11.0) K/mm3 RBC 4.96 (3.65-5.03) M/mm3 Hgb 12.0 (10.1-14.3) gm/dl Hct 37.7 (30.3-42.9) % MCV 76 L (79-97) fl MCH 24 L (28-32) pg MCHC 32 (30-34) % RDW 15.9 H (13.2-15.2) % Plt Count 287 (140-440) K/mm3 Lymph % (Auto) 30.6 (13.4-35.0) % Cherry % (Auto) 5.6 (0.0-7.3) % Eos % (Auto) 1.0 (0.0-4.3) % Baso % (Auto) 1.0 (0.0-1.8) % Lymph # 2.4 (1.2-5.4) K/mm3 Cherry # 0.4 (0.0-0.8) K/mm3 Eos # 0.1 (0.0-0.4) K/mm3 Baso # 0.1 (0.0-0.1) K/mm3 Seg Neutrophils % 61.8 (40.0-70.0) % Seg Neutrophils # 4.9 (1.8-7.7) K/mm3 Sodium 136 L (137-145) mmol/L Potassium 4.0 (3.6-5.0) mmol/L Chloride 98.2 (98-107) mmol/L Carbon Dioxide 20 L (22-30) mmol/L Anion Gap 22 mmol/L BUN 7 (7-17) mg/dL Creatinine 0.6 L (0.7-1.2) mg/dL Estimated GFR > 60 ml/min BUN/Creatinine Ratio 12 % Glucose 237 H (65-100) mg/dL Calcium 9.6 (8.4-10.2) mg/dL Total Bilirubin 0.30 (0.1-1.2) mg/dL AST 17 (5-40) units/L ALT 14 (7-56) units/L Alkaline Phosphatase 97 (35-129) units/L Total Protein 7.9 (6.3-8.2) g/dL Albumin 4.0 (3.9-5) g/dL Albumin/Globulin Ratio 1.0 % Lipase 21 (13-60) units/L Urine Color Yellow (Yellow) Urine Turbidity Clear (Clear) Urine pH 5.0 (5.0-7.0) Ur Specific [place] 1.016 (1.003-1.030) Urine Protein <15 mg/dl (Negative) mg/dL Urine Glucose (UA) >=500 (Negative) mg/dL Urine Ketones Neg (Negative) mg/dL Urine Blood Neg (Negative) Urine Nitrite Neg (Negative) Urine Bilirubin Neg (Negative) Urine Urobilinogen < 2.0 (<2.0) mg/dL Ur Leukocyte Esterase Neg (Negative) Urine WBC (Auto) 5.0 (0.0-6.0) /HPF Urine RBC (Auto) 33.0 (0.0-6.0) /HPF U Epithel Cells (Auto) < 1.0 (0-13.0) /HPF Urine Mucus Few /HPF - Medical Decision Making Patient is a 39-year-old female who presents emergency room with complaints of a lupus flare for the last 4 days. She states that she has generalized fatigue, generalized joint pain, subjective fever, urinary frequency, intermittent nausea and vomiting. She states that she has had approximately 5 episodes of vomiting over the last 4 days. She is able to tolerate p.o. intake. She denies any diarrhea, dysuria, abdominal pain, chest pain, cough, shortness of breath. She has a past medical history of diabetes and lupus. She states that she is currently on prednisone 20 mg twice daily. She has not yet seen her certified nurses aide in a while. She denies any recent travel or sick contacts. Initial vitals with elevated blood pressure which improved to normal upon repeat. Labs are stable. UA without evidence of UTI or dehydration. No ketones in the urine. Patient given 1 L IV fluids, Zofran, morphine and symptoms improved. pt is already on lupus medications, steroids, and pain medication at home. Patient is able to tolerate p.o. intake. Patient given prescription for Zofran. Advised patient Please take medication as prescribed. Increase your water intake. Eat a bland diet. Follow-up with your primary care doctor and certified nurses aide. Return to the emergency room for any new or worsening symptoms. 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 On 06/22/2019 she received hydromorphone 4 mg 20 tablets, on 06/21/2019 she received [place] 12 tablets, on 06/17/2019 she received 12 tablets of Percocet, on 06/15/2019 she received 12 tablets of [place], on 06/11/2027 she received 12 tablets of [place], on 06/07/2019 she received 12 tablets of [place]. she also received multiple prescriptions in May 2019. Will NOT be writing patient narcotics today due to concern for drug-seeking behavior Critical care attestation.: If time is entered above; I have spent that time in minutes in the direct care of this critically ill patient, excluding procedure time. ED Disposition Clinical Impression: Lupus Nausea & vomiting Qualifiers: Vomiting type: unspecified Vomiting Intractability: non-intractable Qualified Code(s): R11.2 - Nausea with vomiting, unspecified Disposition: - TO HOME OR SELFCARE Is pt being admited?: No Does the pt Need Aspirin: No Condition: Stable Instructions: Acute Nausea and Vomiting (ED) Additional Instructions: Please take medication as prescribed. Increase your water intake. Eat a bland diet. Follow-up with your primary care doctor and certified nurses aide. Return to the emergency room for any new or worsening symptoms. Prescriptions: Ondansetron [Zofran Odt] 4 mg PO Q8HR PRN #10 tab.rapdis PRN Reason: Nausea And Vomiting Referrals: ALTAGRACIA WREN NP-C [Primary Care Provider] - 2-3 Days RONNIE MENDOZA MD [Staff Physician] - 2-3 Days Time of Disposition: 11:35 Print Language: AFGHAN
[2019-06-29 10:06] LABS: Basophils # (Auto) 0.1 K/mm3 (0.0-0.1); Eosinophils # (Auto) 0.1 K/mm3 (0.0-0.4); Hematocrit 37.7 % (30.3-42.9); Lymphocytes # (Auto) 2.4 K/mm3 (1.2-5.4); Lymphocytes % (Auto) 30.6 % (13.4-35.0); Mean Corpuscular HGB Conc 32 % (30-34); Mean Corpuscular Volume 76 fl (79-97); Monocytes # (Auto) 0.4 K/mm3 (0.0-0.8); Monocytes % (Auto) 5.6 % (0.0-7.3); Platelet Count 287 K/mm3 (140-440); Red Blood Count 4.96 M/mm3 (3.65-5.03); Red Cell Distribution Width 15.9 % (13.2-15.2)
[2019-06-29 10:29] LABS: Alanine Aminotransferase 14 units/L (7-56); BUN/Creatinine Ratio 12; Blood Urea Nitrogen 7 mg/dL (7-17); Calcium 9.6 mg/dL (8.4-10.2); Hemolysis Index 18
[2019-06-29 11:24] LABS: Bilirubin,Urine NEG (Negative); Blood,Urine NEG (Negative); Color,Urine Yellow (Yellow); Mucus,Urine FEW /HPF; Protein,Urine <15 mg/dL mg/dL (Negative); Urobilinogen,Urine < 2.0 mg/dL (<2.0)
[2019-06-29 12:44] VITALS: BP 129/96
== END 2019-06-29 12:08 | disposition home or self-care (01) ==
LOC: ED 08:28
DX: M32.9 Systemic lupus erythematosus, unspecified (principal); R11.2 Nausea with vomiting, unspecified; I10 Essential (primary) hypertension; F31.9 Bipolar disorder, unspecified; F25.9 Schizoaffective disorder, unspecified; E11.9 Type 2 diabetes mellitus without complications; F17.200 Nicotine dependence, unspecified, uncomplicated; Z95.818 Presence of other cardiac implants and grafts; Z91.012 Allergy to eggs; Z88.6 Allergy status to analgesic agent; Z88.1 Allergy status to other antibiotic agents
CPT/HCPCS: 36415; 80053; 81001; 83690; 85025; 96361; 96374; 96375; 99283; J2270; J2405; J7030

== ENCOUNTER 2019-07-02 18:25 | Emergency (ER) | payer MEDICARE ==
[2019-07-02 21:14] VITALS: BP 106/72
== END 2019-07-02 18:40 | disposition left against medical advice (07) ==
LOC: ED 18:25
DX: R73.9 Hyperglycemia, unspecified (principal); Z53.21 Procedure and treatment not carried out due to patient leaving prior to being seen by health care provider

== ENCOUNTER 2019-07-03 22:06 | Emergency (ER) | payer MEDICARE ==
--- NOTE | 2019-07-03 22:12 | Event Note ---
ED Screening Note ED Screening Note: SEE EMR HERE 05/31- SEE LABS AND URINE HERE LAST NIGHT BUT LEFT TODAY WITH SAME SOB PRIOR NIGHTS. AFFECT INAPPROPRIATE - SHE IS LAUGHING. XRAY TO RO CONSOLIDATION AND RECHECK HER BLOOD SUGAR. SEE LABS FROM 05/31 This initial assessment/diagnostic orders/clinical plan/treatment(s) is/are subject to change based on patients health status, clinical progression and re- assessment by fellow clinical providers in the ED. Further treatment and workup at subsequent clinical providers discretion. Patient/guardian urged not to elope from the ED as their condition may be serious if not clinically assessed and managed. Initial orders include: BG XRAY ADDITIONAL LABS PER PROVIDER IF DEEMED NECESSARY
[2019-07-03 22:56] VITALS: BP 133/86
[2019-07-03] MEDS ORDERED: ACETAMINOPHEN W/CODEINE 300-30 MG TAB PO ONE (23:01)
--- NOTE | 2019-07-03 23:17 | XRay Report ---
CHEST 2 VIEWS INDICATION / CLINICAL INFORMATION: MAIN: SOB; CP "when I inhale and exhale"; onset 2d; denies fever. COMPARISON: 03/27/2019 FINDINGS: SUPPORT DEVICES: None. HEART / MEDIASTINUM: No significant abnormality. LUNGS / PLEURA: No significant pulmonary or pleural abnormality. No pneumothorax. ADDITIONAL FINDINGS: No significant additional findings. IMPRESSION: No significant abnormality or change from 03/27/2019 Signer Name: Oh Manzanares MD FACR Signed: 07/03/2019 11:13 PM Workstation Name: [id number]
--- NOTE | 2019-07-03 23:25 | Emergency Department Report ---
ED General Adult HPI - General Chief complaint: Upper Respiratory Infection Stated complaint: LUNG/CHEST PAIN/SOB Time Seen by Provider: 07/03/19 22:09 Source: patient Mode of arrival: Ambulatory Limitations: No Limitations - History of Present Illness Initial comments: Patient is a 39-year-old female presents emergency room complaints of shortness of breath that began 4 days ago. She has associated chest pressure. She states that she has pain with taking a deep breath in. She denies any fever, nausea, vomiting, diarrhea, leg swelling. She denies any recent surgery, travel, sick contacts. She is a smoker. She has a past medical history of lupus, DM, CAD. She has an allergy to tramadol and vancomycin. - Related Data Home Medications Medication Instructions Recorded Confirmed Last Taken lisinopriL [Lisinopril] 20 mg PO DAILY 10/08/17 11/26/17 11/20/17 10:00 Zolpidem [Ambien] 10 mg PO QHS 11/26/17 11/26/17 Unknown Detemir (Nf) [Levemir (Nf)] 60 units SUB-Q HS 11/27/17 11/26/17 Unknown Previous Rx's Medication Instructions Recorded Last Taken Type Aspirin [Aspirin BABY CHEW TAB] 81 mg PO QDAY #30 tab.chew 06/12/17 11/20/17 10:00 Rx Clopidogrel [Plavix] 75 mg PO QDAY #30 tablet 06/12/17 11/20/17 10:00 Rx Hydroxychloroquine [Plaquenil] 200 mg PO QDAY tablet 11/28/17 Unknown Rx Lispro Insulin [HumaLOG] 0 unit SUB-Q ACHS units 11/28/17 Unknown Rx Dicyclomine [Bentyl] 10 mg PO BID #20 capsule 09/01/18 Unknown Rx Fluconazole [Diflucan TAB] 150 mg PO ONCE #2 tablet 09/20/18 Unknown Rx metroNIDAZOLE [Flagyl] 500 mg PO Q12HR #20 tab 09/20/18 Unknown Rx Clindamycin [Clindamycin CAP] 300 mg PO Q6H #21 capsule 11/06/18 Unknown Rx Ibuprofen [Motrin 800 MG tab] 800 mg PO Q8HR PRN #20 tablet 11/06/18 Unknown Rx Acetamin/Codeine 120-12Mg/5 ml 5 ml PO TID #50 ml 11/25/18 Unknown Rx [Tylenol/Codeine] Famotidine [Pepcid] 20 mg PO BID #20 tablet 11/25/18 Unknown Rx Acetaminophen [Acetaminophen TAB] 1,000 mg PO Q6HR PRN #60 tablet 03/26/19 Unknown Rx Ibuprofen [Motrin 800 MG tab] 800 mg PO Q8HR PRN #30 tablet 03/26/19 Unknown Rx predniSONE [Deltasone] 40 mg PO QDAY 5 Days #10 tab 03/26/19 Unknown Rx Blood-Glucose Meter [Glucocard 1 each MC PRN #1 each 04/05/19 Unknown Rx Shine Connex Meter] Insulin Detemir [Levemir Flextouch] 40 unit SQ QHS #4 insuln.pen 04/05/19 Unknown Rx Insulin Regular, Human [HumuLIN R] 10 unit SQ AC #200 units 04/05/19 Unknown Rx Lancets [Glucocom Lancets] 1 each MC TID #1 pack 04/05/19 Unknown Rx oxyCODONE /ACETAMINOPHEN [Percocet 1 tab PO Q6HR PRN #10 tablet 04/23/19 Unknown Rx 5/325] Dicyclomine [Bentyl] 20 mg PO QID #10 tablet 04/29/19 Unknown Rx HYDROcodone/APAP 5-325 [Manteno 1 each PO Q6HR PRN #10 tablet 04/29/19 Unknown Rx 5/325] Ondansetron [Zofran Odt] 4 mg PO Q8HR #10 tab.rapdis 04/29/19 Unknown Rx Acetaminophen/Codeine [Tylenol 1 tab PO Q6H PRN #12 tab 05/15/19 Unknown Rx /Codeine # 3 tab] Ondansetron [Zofran Odt] 4 mg PO Q8HR PRN #12 tab.rapdis 05/15/19 Unknown Rx Ondansetron [Zofran Odt] 4 mg PO Q8HR PRN #10 tab.rapdis 06/29/19 Unknown Rx Allergies Allergy/AdvReac Type Severity Reaction Status Date / Time egg Allergy Hives Verified 04/01/19 12:51 tramadol HCl [From Ultram] Allergy Hives Verified 04/01/19 12:51 vancomycin Allergy Hives Verified 04/01/19 12:51 ED Review of Systems ROS: Stated complaint: LUNG/CHEST PAIN/SOB Other details as noted in HPI Comment: All other systems reviewed and negative ED Past Medical Hx - Past Medical History Previous Medical History?: Yes Hx Hypertension: Yes Hx CVA: No Hx Heart Attack/AMI: (05/22, cardiac stent x1) Hx Congestive Heart Failure: No Hx Diabetes: Yes (type 2) Hx Deep Vein Thrombosis: No Hx Pulmonary Embolism: No Hx GERD: No Hx Liver Disease: No Hx Renal Disease: No Hx Sickle Cell Disease: No Hx Arthritis: No Hx Headaches / Migraines: No Hx Seizures: No Hx Kidney Stones: No 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 iron deficient anemia - Surgical History Hx Coronary Stent: Yes (x1) Hx Open Heart Surgery: No Hx Pacemaker: No Hx Internal Defibrillator: No Hx Cholecystectomy: No Hx Appendectomy: No Hx Breast Surgery: Yes (breast reduction 05/2004) Additional Surgical History: Breast reduction bilateral,excisional surg. for abscess - Social History Smoking Status: Current Every Day Smoker Substance Use Type: Marijuana - Medications Home Medications: Home Medications Medication Instructions Recorded Confirmed Last Taken Type Aspirin [Aspirin BABY CHEW TAB] 81 mg PO QDAY #30 tab.chew 06/12/17 11/26/17 11/20/17 10:00 Rx Clopidogrel [Plavix] 75 mg PO QDAY #30 tablet 06/12/17 11/26/17 11/20/17 10:00 Rx lisinopriL [Lisinopril] 20 mg PO DAILY 10/08/17 11/26/17 11/20/17 10:00 History Zolpidem [Ambien] 10 mg PO QHS 11/26/17 11/26/17 Unknown History Detemir (Nf) [Levemir (Nf)] 60 units SUB-Q HS 11/27/17 11/26/17 Unknown History Hydroxychloroquine [Plaquenil] 200 mg PO QDAY tablet 11/28/17 Unknown Rx Lispro Insulin [HumaLOG] 0 unit SUB-Q ACHS units 11/28/17 Unknown Rx Dicyclomine [Bentyl] 10 mg PO BID #20 capsule 09/01/18 Unknown Rx Fluconazole [Diflucan TAB] 150 mg PO ONCE #2 tablet 06/19/19 Unknown Rx metroNIDAZOLE [Flagyl] 500 mg PO Q12HR #20 tab 09/20/18 Unknown Rx Clindamycin [Clindamycin CAP] 300 mg PO Q6H #21 capsule 11/06/18 Unknown Rx Ibuprofen [Motrin 800 MG tab] 800 mg PO Q8HR PRN #20 tablet 11/06/18 Unknown Rx Acetamin/Codeine 120-12Mg/5 ml 5 ml PO TID #50 ml 11/25/18 Unknown Rx [Tylenol/Codeine] Famotidine [Pepcid] 20 mg PO BID #20 tablet 11/25/18 Unknown Rx Acetaminophen [Acetaminophen TAB] 1,000 mg PO Q6HR PRN #60 tablet 03/26/19 Unknown Rx Ibuprofen [Motrin 800 MG tab] 800 mg PO Q8HR PRN #30 tablet 03/26/19 Unknown Rx predniSONE [Deltasone] 40 mg PO QDAY 5 Days #10 tab 03/26/19 Unknown Rx Blood-Glucose Meter [Glucocard 1 each PRN #1 each 04/05/19 Unknown Rx Shine Connex Meter] Insulin Detemir [Levemir Flextouch] 40 unit SQ QHS #4 insuln.pen 04/05/19 Unknown Rx Insulin Regular, Human [HumuLIN R] 10 unit SQ AC #200 units 04/05/19 Unknown Rx Lancets [Glucocom Lancets] 1 each TID #1 pack 04/05/19 Unknown Rx oxyCODONE /ACETAMINOPHEN [Percocet 1 tab PO Q6HR PRN #10 tablet 04/23/19 Unknown Rx 5/325] Dicyclomine [Bentyl] 20 mg PO QID #10 tablet 04/29/19 Unknown Rx HYDROcodone/APAP 5-325 [Manteno 1 each PO Q6HR PRN #10 tablet 04/29/19 Unknown Rx 5/325] Ondansetron [Zofran Odt] 4 mg PO Q8HR #10 tab.rapdis 04/29/19 Unknown Rx Acetaminophen/Codeine [Tylenol 1 tab PO Q6H PRN #12 tab 05/15/19 Unknown Rx /Codeine # 3 tab] Ondansetron [Zofran Odt] 4 mg PO Q8HR PRN #12 tab.rapdis 05/15/19 Unknown Rx Ondansetron [Zofran Odt] 4 mg PO Q8HR PRN #10 tab.rapdis 06/29/19 Unknown Rx ED Physical Exam - General Limitations: No Limitations General appearance: alert, in no apparent distress - Head Head exam: Present: atraumatic, normocephalic - Eye Eye exam: Present: normal appearance - ENT ENT exam: Present: mucous membranes moist - Respiratory Respiratory exam: Present: normal lung sounds bilaterally. Absent: respiratory distress, wheezes, rales, rhonchi, stridor, chest wall tenderness, accessory muscle use, decreased breath sounds, prolonged expiratory - Cardiovascular Cardiovascular Exam: Present: regular rate, normal rhythm, normal heart sounds. Absent: systolic murmur, diastolic murmur, rubs, gallop - Neurological Exam Neurological exam: Present: alert, oriented X3 - Psychiatric Psychiatric exam: Present: normal affect, normal mood - Skin Skin exam: Present: warm, dry, intact ED Course Vital Signs 07/03/19 22:10 Temperature 98.1 F Pulse Rate 70 Respiratory 18 Rate Blood Pressure 133/86 O2 Sat by Pulse 97 Oximetry ED Medical Decision Making - Lab Data Result diagrams: 07/04/19 00:10 07/04/19 00:10 Lab Results 07/04/19 07/04/19 07/04/19 Range/Units 00:10 00:10 00:10 WBC 9.7 (4.5-11.0) K/mm3 RBC 4.54 (3.65-5.03) M/mm3 Hgb 11.2 (10.1-14.3) gm/dl Hct 34.2 (30.3-42.9) % MCV 75 L (79-97) fl MCH 25 L (28-32) pg MCHC 33 (30-34) % RDW 15.7 H (13.2-15.2) % Plt Count 257 (140-440) K/mm3 Lymph % (Auto) 35.5 H (13.4-35.0) % Irwin % (Auto) 5.6 (0.0-7.3) % Eos % (Auto) 0.9 (0.0-4.3) % Baso % (Auto) 0.5 (0.0-1.8) % Lymph # 3.4 (1.2-5.4) K/mm3 Irwin # 0.5 (0.0-0.8) K/mm3 Eos # 0.1 (0.0-0.4) K/mm3 Baso # 0.1 (0.0-0.1) K/mm3 Seg Neutrophils % 57.5 (40.0-70.0) % Seg Neutrophils # 5.6 (1.8-7.7) K/mm3 D-Dimer (0-234) ng/mlDDU VBG pH 7.355 (7.320-7.420) Sodium 137 (137-145) mmol/L Potassium 4.1 (3.6-5.0) mmol/L Chloride 101.0 (98-107) mmol/L Carbon Dioxide 23 (22-30) mmol/L Anion Gap 17 mmol/L BUN 11 (7-17) mg/dL Creatinine 0.6 L (0.7-1.2) mg/dL Estimated GFR > 60 ml/min BUN/Creatinine Ratio 18 % Glucose 280 H (65-100) mg/dL Calcium 9.2 (8.4-10.2) mg/dL Total Bilirubin < 0.20 (0.1-1.2) mg/dL AST 12 (5-40) units/L ALT 15 (7-56) units/L Alkaline Phosphatase 114 (35-129) units/L Troponin T (0.00-0.029) ng/mL Total Protein 7.0 (6.3-8.2) g/dL Albumin 3.9 (3.9-5) g/dL Albumin/Globulin Ratio 1.3 % 07/04/19 07/04/19 Range/Units 00:10 00:10 WBC (4.5-11.0) K/mm3 RBC (3.65-5.03) M/mm3 Hgb (10.1-14.3) gm/dl Hct (30.3-42.9) % MCV (79-97) fl MCH (28-32) pg MCHC (30-34) % RDW (13.2-15.2) % Plt Count (140-440) K/mm3 Lymph % (Auto) (13.4-35.0) % Irwin % (Auto) (0.0-7.3) % Eos % (Auto) (0.0-4.3) % Baso % (Auto) (0.0-1.8) % Lymph # (1.2-5.4) K/mm3 Irwin # (0.0-0.8) K/mm3 Eos # (0.0-0.4) K/mm3 Baso # (0.0-0.1) K/mm3 Seg Neutrophils % (40.0-70.0) % Seg Neutrophils # (1.8-7.7) K/mm3 D-Dimer 333.77 H (0-234) ng/mlDDU VBG pH (7.320-7.420) Sodium (137-145) mmol/L Potassium (3.6-5.0) mmol/L Chloride (98-107) mmol/L Carbon Dioxide (22-30) mmol/L Anion Gap mmol/L BUN (7-17) mg/dL Creatinine (0.7-1.2) mg/dL Estimated GFR ml/min BUN/Creatinine Ratio % Glucose (65-100) mg/dL Calcium (8.4-10.2) mg/dL Total Bilirubin (0.1-1.2) mg/dL AST (5-40) units/L ALT (7-56) units/L Alkaline Phosphatase (35-129) units/L Troponin T < 0.010 (0.00-0.029) ng/mL Total Protein (6.3-8.2) g/dL Albumin (3.9-5) g/dL Albumin/Globulin Ratio % - Radiology Data Radiology results: report reviewed CHEST 2 VIEWS INDICATION / CLINICAL INFORMATION: MAIN: SOB; CP "when I inhale and exhale"; onset 2d; denies fever. COMPARISON: 03/27/2019 FINDINGS: SUPPORT DEVICES: None. HEART / MEDIASTINUM: No significant abnormality. LUNGS / PLEURA: No significant pulmonary or pleural abnormality. No pneumothorax. ADDITIONAL FINDINGS: No significant additional findings. IMPRESSION: No significant abnormality or change from 03/27/2019 Signer Name: Oh Manzanares MD FACR Signed: 07/03/2019 11:13 PM Workstation Name: [id number] Transcribed By: MS Dictated By: Oh Manzanares MD Electronically Authenticated By: Oh Manzanares MD Signed Date/Time: 07/03/192312 DD/ 11 TD/TT: - Medical Decision Making Patient is a 39-year-old female presents emergency room complaints of shortness of breath that began 4 days ago. She has associated chest pressure. She states that she has pain with taking a deep breath in. She denies any fever, nausea, vomiting, diarrhea, leg swelling. She denies any recent surgery, travel, sick contacts. She is a smoker. She has a past medical history of lupus, DM, CAD. She has an allergy to tramadol and vancomycin. vitals are normal. No tachycardia, no hypoxia. On exam breath sounds are clear bilaterally, no wheezing, no rales, no rhonchi, good air movement. Chest x-ray with No significant abnormality or change from 03/27/2019. Mildly elevated d-dimer, otherwise labs are stable. Troponin is negative. Patient requested something for pain and I gave her 1 Tylenol with codeine. I advised patient that she would need to have a CT Angio of her chest to rule out a PE. Patient was well- appearing and did not appear to be in any distress she again requested stronger narcotics, I advised patient that I would like to hold off on the narcotics until she has her testing completed. Patient became angered when she realized that she was not can be given narcotics at this moment. 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 On 06/22/2019 she received hydromorphone 4 mg 20 tablets, on 06/21/2019 she received Manteno 12 tablets, on 06/17/2019 she received 12 tablets of Percocet, on 06/15/2019 she received 12 tablets of Manteno, on 06/11/2027 she received 12 tablets of Manteno, on 06/07/2019 she received 12 tablets of Manteno. she also received multiple prescriptions in May 2019. it appears pt also received another narcotic prescription on 06/28/2019. It appears patient is exhibiting drug seeking behavior Patient refused to have the CTA done, I advised patient that she would have to leave AGAINST MEDICAL ADVICE and would be leaving without a full medical examination, I advised that we could not rule out a pulmonary embolism without having a CTA performed, discussed the risks associated with leaving without a full medical advice including , disability, paralysis, permanent loss of quality of life, patient verbalized understanding The patient is alert and oriented x3. The patient exhibits decision-making capacity. The patient is free from distracting injury. The risk of leaving without a complete medical examination, and AGAINST MEDICAL ADVICE, were explained to the patient, and they included , disability, paralysis, permanent loss of quality of life. Patient verbalized understanding to these and was able to articulate these risk in their own words and this conversation was witnessed by SASHA Kc. Patient signed AMA form and was attached to her chart Critical care attestation.: If time is entered above; I have spent that time in minutes in the direct care of this critically ill patient, excluding procedure time. ED Disposition Clinical Impression: SOB (shortness of breath), Chest pressure Disposition: [id number] LEFT AGAINST MED ADVICE Is pt being admited?: No Does the pt Need Aspirin: No Condition: Undetermined Referrals: PRIMARY CARE, [Primary Care Provider] - 3-5 Days Forms: AMA Form
[2019-07-04 00:23] LABS: Basophils # (Auto) 0.1 K/mm3 (0.0-0.1); Basophils % (Auto) 0.5 % (0.0-1.8); Eosinophils # (Auto) 0.1 K/mm3 (0.0-0.4); Eosinophils % (Auto) 0.9 % (0.0-4.3); Hematocrit 34.2 % (30.3-42.9); Hemoglobin 11.2 gm/dl (10.1-14.3); Lymphocytes # (Auto) 3.4 K/mm3 (1.2-5.4); Lymphocytes % (Auto) 35.5 % (13.4-35.0); Mean Corpuscular HGB Conc 33 % (30-34); Mean Corpuscular Volume 75 fl (79-97); Monocytes # (Auto) 0.5 K/mm3 (0.0-0.8); Monocytes % (Auto) 5.6 % (0.0-7.3); Platelet Count 257 K/mm3 (140-440); Red Blood Count 4.54 M/mm3 (3.65-5.03); Red Cell Distribution Width 15.7 % (13.2-15.2)
[2019-07-04] MEDS ORDERED: ALUM-MAG HYDROXIDE-SIMETHICONE 200-200-20MG/5ML ORAL LIQD 30 ML ONE (00:30)
[2019-07-04 00:37] LABS: Alanine Aminotransferase 15 units/L (7-56); Albumin 3.9 g/dL (3.9-5); BUN/Creatinine Ratio 18; Blood Urea Nitrogen 11 mg/dL (7-17); Calcium 9.2 mg/dL (8.4-10.2); Hemolysis Index 7
== END 2019-07-04 00:56 | disposition left against medical advice (07) ==
LOC: ED 22:06
DX: R07.89 Other chest pain (principal); R06.02 Shortness of breath
CPT/HCPCS: 36415; 71046; 80053; 82805; 84484; 85025; 85379; 93005; 93010; 99284

== ENCOUNTER 2019-07-16 08:47 | Emergency (ER) | payer MEDICARE ==
[2019-07-16 09:00] VITALS: BP 128/79
[2019-07-16 09:41] LABS: Hematocrit 36.6 % (30.3-42.9); Hemoglobin 11.6 gm/dl (10.1-14.3); Mean Corpuscular HGB Conc 32 % (30-34); Mean Corpuscular Volume 75 fl (79-97); Platelet Count 305 K/mm3 (140-440); Red Blood Count 4.89 M/mm3 (3.65-5.03)
[2019-07-16 11:00] LABS: BUN/Creatinine Ratio 14; Blood Urea Nitrogen 11 mg/dL (7-17); Calcium 9.2 mg/dL (8.4-10.2); Hemolysis Index 6
[2019-07-16] MEDS ORDERED: SODIUM CHLORIDE 0.9% 1000 ML 2,000 ML IV ONE (11:30)
[2019-07-16 11:37] LABS: Bilirubin,Urine NEG (Negative); Blood,Urine NEG (Negative); Color,Urine Yellow (Yellow); Mucus,Urine FEW /HPF; Protein,Urine <15 mg/dL mg/dL (Negative); Urobilinogen,Urine < 2.0 mg/dL (<2.0)
== END 2019-07-16 14:01 ==
LOC: ED 08:47
DX: E83.81 Hungry bone syndrome (principal); Z53.21 Procedure and treatment not carried out due to patient leaving prior to being seen by health care provider
CPT/HCPCS: 36415; 80048; 81001; 82805; 82962; 85027; J7030

== ENCOUNTER 2019-07-18 08:24 | Emergency (ER) | payer MEDICARE ==
[2019-07-18 08:35] VITALS: BP 129/80
[2019-07-18] MEDS ORDERED: SODIUM CHLORIDE 0.9% 1000 ML 2,000 ML IV ONE (08:57)
[2019-07-18] MEDS ORDERED: KETOROLAC 30 MG/1 ML INJ IV ONE (08:58)
[2019-07-18 09:56] LABS: Bilirubin,Urine NEG (Negative); Blood,Urine SM (Negative); Color,Urine Straw (Yellow); Protein,Urine <15 mg/dL mg/dL (Negative); Urobilinogen,Urine < 2.0 mg/dL (<2.0)
[2019-07-18 10:03] LABS: RBC,Urine < 1.0 /HPF (0.0-6.0)
--- NOTE | 2019-07-18 11:43 | Emergency Department Report ---
ED General Adult HPI - General Chief complaint: Nausea/Vomiting/Diarrhea Stated complaint: LUPUS FLARE Time Seen by Provider: 07/18/19 08:56 Source: patient Mode of arrival: Ambulatory Limitations: No Limitations - History of Present Illness Initial comments: This is a 39-year-old female nontoxic, well nourished in appearance, no acute signs of distress presents to the ED with c/o of generalized body aches. Patient has history of lupus and stated she has lupus flareup. Patient denies any chest pain, shortness of breath, fever, chills, nausea, vomiting, headache or stiff neck. Patient states she is currently taking insulin. Allergies includes eggs, tramadol and vancomycin. -: days(s) Radiation: non-radiation Severity scale (0 -10): 3 Quality: aching Consistency: constant Improves with: none Worsens with: none Associated Symptoms: denies other symptoms. denies: confusion, chest pain, cough, diaphoresis, fever/chills, headaches, loss of appetite, malaise, nausea/vomiting, rash, seizure, shortness of breath, syncope, weakness - Related Data Home Medications Medication Instructions Recorded Confirmed Last Taken lisinopriL [Lisinopril] 20 mg PO DAILY 10/08/17 11/26/17 11/20/17 10:00 Zolpidem [Ambien] 10 mg PO QHS 11/26/17 11/26/17 Unknown Detemir (Nf) [Levemir (Nf)] 60 units SUB-Q HS 11/27/17 11/26/17 Unknown Previous Rx's Medication Instructions Recorded Last Taken Type Aspirin [Aspirin BABY CHEW TAB] 81 mg PO QDAY #30 tab.chew 06/12/17 11/20/17 10:00 Rx Clopidogrel [Plavix] 75 mg PO QDAY #30 tablet 06/12/17 11/20/17 10:00 Rx Hydroxychloroquine [Plaquenil] 200 mg PO QDAY tablet 11/28/17 Unknown Rx Lispro Insulin [HumaLOG] 0 unit SUB-Q ACHS units 11/28/17 Unknown Rx Dicyclomine [Bentyl] 10 mg PO BID #20 capsule 09/01/18 Unknown Rx Fluconazole [Diflucan TAB] 150 mg PO ONCE #2 tablet 09/20/18 Unknown Rx metroNIDAZOLE [Flagyl] 500 mg PO Q12HR #20 tab 09/20/18 Unknown Rx Clindamycin [Clindamycin CAP] 300 mg PO Q6H #21 capsule 11/06/18 Unknown Rx Ibuprofen [Motrin 800 MG tab] 800 mg PO Q8HR PRN #20 tablet 11/06/18 Unknown Rx Acetamin/Codeine 120-12Mg/5 ml 5 ml PO TID #50 ml 11/25/18 Unknown Rx [Tylenol/Codeine] Famotidine [Pepcid] 20 mg PO BID #20 tablet 11/25/18 Unknown Rx Acetaminophen [Acetaminophen TAB] 1,000 mg PO Q6HR PRN #60 tablet 03/26/19 Unknown Rx Ibuprofen [Motrin 800 MG tab] 800 mg PO Q8HR PRN #30 tablet 03/26/19 Unknown Rx predniSONE [Deltasone] 40 mg PO QDAY 5 Days #10 tab 03/26/19 Unknown Rx Blood-Glucose Meter [Glucocard 1 each PRN #1 each 04/05/19 Unknown Rx Shine Connex Meter] Insulin Detemir [Levemir Flextouch] 40 unit SQ QHS #4 insuln.pen 04/05/19 Unknown Rx Insulin Regular, Human [HumuLIN R] 10 unit SQ AC #200 units 04/05/19 Unknown Rx Lancets [Glucocom Lancets] 1 each TID #1 pack 04/05/19 Unknown Rx oxyCODONE /ACETAMINOPHEN [Percocet 1 tab PO Q6HR PRN #10 tablet 04/23/19 Unknown Rx 5/325] Dicyclomine [Bentyl] 20 mg PO QID #10 tablet 04/29/19 Unknown Rx HYDROcodone/APAP 5-325 [[place] 1 each PO Q6HR PRN #10 tablet 04/29/19 Unknown Rx 5/325] Ondansetron [Zofran Odt] 4 mg PO Q8HR #10 tab.rapdis 04/29/19 Unknown Rx Acetaminophen/Codeine [Tylenol 1 tab PO Q6H PRN #12 tab 05/15/19 Unknown Rx /Codeine # 3 tab] Ondansetron [Zofran Odt] 4 mg PO Q8HR PRN #12 tab.rapdis 05/15/19 Unknown Rx Ondansetron [Zofran Odt] 4 mg PO Q8HR PRN #10 tab.rapdis 06/29/19 Unknown Rx Naproxen 500 mg PO Q12H PRN #12 tablet 07/18/19 Unknown Rx Allergies Allergy/AdvReac Type Severity Reaction Status Date / Time egg Allergy Hives Verified 04/01/19 12:51 tramadol HCl [From Ultram] Allergy Hives Verified 04/01/19 12:51 vancomycin Allergy Hives Verified 04/01/19 12:51 ED Review of Systems ROS: Stated complaint: LUPUS FLARE Other details as noted in HPI Constitutional: denies: chills, fever Eyes: denies: eye pain, eye discharge, vision change ENT: denies: ear pain, throat pain Respiratory: denies: cough, shortness of breath, wheezing Cardiovascular: denies: chest pain, palpitations Endocrine: no symptoms reported Gastrointestinal: denies: abdominal pain, nausea, diarrhea Genitourinary: denies: urgency, dysuria, discharge Musculoskeletal: denies: back pain, joint swelling, arthralgia Skin: denies: rash, lesions Neurological: denies: headache, weakness, paresthesias Psychiatric: denies: anxiety, depression Hematological/Lymphatic: denies: easy bleeding, easy bruising ED Past Medical Hx - Past Medical History Hx Hypertension: Yes Hx CVA: No Hx Heart Attack/AMI: (05/22, cardiac stent x1) Hx Congestive Heart Failure: No Hx Diabetes: Yes (type 2) Hx Deep Vein Thrombosis: No Hx Pulmonary Embolism: No Hx GERD: No Hx Liver Disease: No Hx Renal Disease: No Hx Sickle Cell Disease: No Hx Arthritis: No Hx Headaches / Migraines: No Hx Seizures: No Hx Kidney Stones: No 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 iron deficient anemia - Surgical History Hx Coronary Stent: Yes (x1) Hx Open Heart Surgery: No Hx Pacemaker: No Hx Internal Defibrillator: No Hx Cholecystectomy: No Hx Appendectomy: No Hx Breast Surgery: Yes (breast reduction 05/2004) Additional Surgical History: Breast reduction bilateral,excisional surg. for abscess - Social History Smoking Status: Current Every Day Smoker Substance Use Type: Marijuana - Medications Home Medications: Home Medications Medication Instructions Recorded Confirmed Last Taken Type Aspirin [Aspirin BABY CHEW TAB] 81 mg PO QDAY #30 tab.chew 06/12/17 11/26/17 11/20/17 10:00 Rx Clopidogrel [Plavix] 75 mg PO QDAY #30 tablet 06/12/17 11/26/17 11/20/17 10:00 Rx lisinopriL [Lisinopril] 20 mg PO DAILY 10/08/17 11/26/17 11/20/17 10:00 History Zolpidem [Ambien] 10 mg PO QHS 11/26/17 11/26/17 Unknown History Detemir (Nf) [Levemir (Nf)] 60 units SUB-Q HS 11/27/17 11/26/17 Unknown History Hydroxychloroquine [Plaquenil] 200 mg PO QDAY tablet 11/28/17 Unknown Rx Lispro Insulin [HumaLOG] 0 unit SUB-Q ACHS units 11/28/17 Unknown Rx Dicyclomine [Bentyl] 10 mg PO BID #20 capsule 09/01/18 Unknown Rx Fluconazole [Diflucan TAB] 150 mg PO ONCE #2 tablet 09/20/18 Unknown Rx metroNIDAZOLE [Flagyl] 500 mg PO Q12HR #20 tab 09/20/18 Unknown Rx Clindamycin [Clindamycin CAP] 300 mg PO Q6H #21 capsule 11/06/18 Unknown Rx Ibuprofen [Motrin 800 MG tab] 800 mg PO Q8HR PRN #20 tablet 11/06/18 Unknown Rx Acetamin/Codeine 120-12Mg/5 ml 5 ml PO TID #50 ml 11/25/18 Unknown Rx [Tylenol/Codeine] Famotidine [Pepcid] 20 mg PO BID #20 tablet 11/25/18 Unknown Rx Acetaminophen [Acetaminophen TAB] 1,000 mg PO Q6HR PRN #60 tablet 03/26/19 Unknown Rx Ibuprofen [Motrin 800 MG tab] 800 mg PO Q8HR PRN #30 tablet 03/26/19 Unknown Rx predniSONE [Deltasone] 40 mg PO QDAY 5 Days #10 tab 03/26/19 Unknown Rx Blood-Glucose Meter [Glucocard 1 each PRN #1 each 04/05/19 Unknown Rx Shine Connex Meter] Insulin Detemir [Levemir Flextouch] 40 unit SQ QHS #4 insuln.pen 04/05/19 Unknown Rx Insulin Regular, Human [HumuLIN R] 10 unit SQ AC #200 units 01/02/20 Unknown Rx Lancets [Glucocom Lancets] 1 each MC TID #1 pack 04/05/19 Unknown Rx oxyCODONE /ACETAMINOPHEN [Percocet 1 tab PO Q6HR PRN #10 tablet 04/23/19 Unknown Rx 5/325] Dicyclomine [Bentyl] 20 mg PO QID #10 tablet 04/29/19 Unknown Rx HYDROcodone/APAP 5-325 [[place] 1 each PO Q6HR PRN #10 tablet 04/29/19 Unknown Rx 5/325] Ondansetron [Zofran Odt] 4 mg PO Q8HR #10 tab.rapdis 04/29/19 Unknown Rx Acetaminophen/Codeine [Tylenol 1 tab PO Q6H PRN #12 tab 05/15/19 Unknown Rx /Codeine # 3 tab] Ondansetron [Zofran Odt] 4 mg PO Q8HR PRN #12 tab.rapdis 05/15/19 Unknown Rx Ondansetron [Zofran Odt] 4 mg PO Q8HR PRN #10 tab.rapdis 06/29/19 Unknown Rx Naproxen 500 mg PO Q12H PRN #12 tablet 07/18/19 Unknown Rx ED Physical Exam - General Limitations: No Limitations General appearance: alert, in no apparent distress - Head Head exam: Present: atraumatic, normocephalic - Eye Eye exam: Present: normal appearance - Neck Neck exam: Present: normal inspection, full ROM. Absent: tenderness, meningismus, lymphadenopathy - Respiratory Respiratory exam: Present: normal lung sounds bilaterally. Absent: respiratory distress, wheezes, rales, rhonchi, stridor, chest wall tenderness, accessory muscle use, decreased breath sounds, prolonged expiratory - Cardiovascular Cardiovascular Exam: Present: regular rate, normal rhythm, normal heart sounds. Absent: bradycardia, tachycardia, irregular rhythm, systolic murmur, diastolic murmur, rubs, gallop - GI/Abdominal GI/Abdominal exam: Present: soft, normal bowel sounds. Absent: distended, tenderness, guarding, rebound, rigid, diminished bowel sounds - Extremities Exam Extremities exam: Present: normal inspection, full ROM - Back Exam Back exam: Present: normal inspection, full ROM. Absent: tenderness, CVA tenderness (R), CVA tenderness (L), muscle spasm, paraspinal tenderness, vertebral tenderness, rash noted - Neurological Exam Neurological exam: Present: alert, oriented X3, normal gait - Psychiatric Psychiatric exam: Present: normal affect, normal mood - Skin Skin exam: Present: warm, dry, intact, normal color. Absent: rash ED Course Vital Signs 07/18/19 08:34 Temperature 98.7 F Pulse Rate 84 Respiratory 16 Rate Blood Pressure 129/80 [Right] O2 Sat by Pulse 100 Oximetry - Reevaluation(s) Reevaluation #1: 07/18/19 11:44 Patient is speaking in full sentences with no signs of distress noted. Reevaluation #2: 07/18/19 12:48 Patient is presently comfortably with no acute signs of distress. No pain noted upon exam. ED Medical Decision Making - Lab Data Result diagrams: 07/18/19 12:18 07/18/19 Unknown - Medical Decision Making This is a 39-year-old female that presents with lupus flareup. Patient is stable and was examined by me. Labs has been obtained. Patient received 2 L normal saline. Patient refused Toradol and is requesting for norcatics. 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 Upon exam, patient is talking on the phine and smiling with no signs of objective pain noted. Patient has a long history of narcotic dependency. Patient was instructed to follow-up with a primary care doctor in 3-5 days or if symptoms worsen and continue return to emergency room as soon as possible. At time of discharge, the patient does not seem toxic or ill in appearance. No acute signs of distress noted. Patient agrees to discharge treatment plan of care. No further questions noted by the patient. Critical care attestation.: If time is entered above; I have spent that time in minutes in the direct care of this critically ill patient, excluding procedure time. ED Disposition Clinical Impression: Narcotic dependence Lupus (systemic lupus erythematosus) Qualifiers: Systemic lupus erythematosus type: unspecified Systemic lupus erythematosus organ involvement: unspecified Qualified Code(s): M32.9 - Systemic lupus erythematosus, unspecified Disposition: DC-01 TO HOME OR SELFCARE Is pt being admited?: No Does the pt Need Aspirin: No Condition: Stable Additional Instructions: Follow-up with a primary care doctor in 3-5 days or if symptoms worsen and continue return to emergency room as soon as possible. Prescriptions: Naproxen 500 mg PO Q12H PRN #12 tablet PRN Reason: Pain , Severe (7-10) Referrals: ALTAGRACIA WREN NP-C [Primary Care Provider] - 3-5 Days PRIMARY [facility]ARE, [Referring] - 3-5 Days GUILLERMO ANTHONY MD [Staff Physician] - 3-5 Days [facility] [Provider Group] - 3-5 Days
[2019-07-18 12:30] LABS: Basophils % (Auto) 0.6 % (0.0-1.8); Eosinophils % (Auto) 0.6 % (0.0-4.3); Hematocrit 34.5 % (30.3-42.9); Lymphocytes # (Auto) 2.1 K/mm3 (1.2-5.4); Lymphocytes % (Auto) 29.7 % (13.4-35.0); Mean Corpuscular HGB Conc 32 % (30-34); Mean Corpuscular Volume 76 fl (79-97); Monocytes # (Auto) 0.3 K/mm3 (0.0-0.8); Monocytes % (Auto) 4.1 % (0.0-7.3); Platelet Count 291 K/mm3 (140-440); Red Blood Count 4.57 M/mm3 (3.65-5.03)
[2019-07-18 15:06] LABS: BUN/Creatinine Ratio TNR; Blood Urea Nitrogen TNR mg/dL (7-17); Calcium TNR mg/dL (8.4-10.2)
[2019-07-18 15:07] LABS: Alanine Aminotransferase TNR units/L (7-56); Albumin TNR g/dL (3.9-5)
[2019-07-18 15:08] LABS: Hemolysis Index TNR
[2019-07-18 16:44] LABS: Alanine Aminotransferase 12 units/L (7-56); Albumin 4.2 g/dL (3.9-5); BUN/Creatinine Ratio 10; Blood Urea Nitrogen 7 mg/dL (7-17); Calcium 9.2 mg/dL (8.4-10.2); Hemolysis Index 33
== END 2019-07-18 17:00 | disposition home or self-care (01) ==
LOC: ED 08:24
DX: M32.9 Systemic lupus erythematosus, unspecified (principal); F11.20 Opioid dependence, uncomplicated; I10 Essential (primary) hypertension; E11.9 Type 2 diabetes mellitus without complications; F31.9 Bipolar disorder, unspecified; D64.9 Anemia, unspecified; F12.10 Cannabis abuse, uncomplicated; F17.200 Nicotine dependence, unspecified, uncomplicated; Z79.1 Long term (current) use of non-steroidal anti-inflammatories (NSAID); Z98.890 Other specified postprocedural states; Z79.4 Long term (current) use of insulin; Z79.899 Other long term (current) drug therapy; Z91.018 Allergy to other foods; Z88.8 Allergy status to other drugs, medicaments and biological substances
CPT/HCPCS: 36415; 80053; 81001; 82805; 82962; 84703; 85025; 99283; J1885; J7030

== ENCOUNTER 2019-07-20 15:38 | Emergency (ER) | payer MEDICARE ==
[2019-07-20 15:46] VITALS: BP 146/88
[2019-07-20] MEDS ORDERED: ONDANSETRON 4 MG ODT TAB PO ONE (17:17)
--- NOTE | 2019-07-20 17:23 | Emergency Department Report ---
ED General Adult HPI - General Chief complaint: Recheck/Abnormal Lab/Rx Stated complaint: MED REFILL-MICHAEL AND HEART Time Seen by Provider: 07/20/19 17:05 Source: patient Mode of arrival: Ambulatory Limitations: No Limitations - History of Present Illness Initial comments: 39-year-old -[place] female who is well-known by this provider and was recently seen here 2 days ago comes in for lupus flareup and reports she needs medications refills. Patient states that she is out of her Plaquenil and Plavix. Patient states that she made an attempt to see her primary care provider but she did not have $20 co-pay therefore her doctor will not see her or call her medication and. Patient does have a past medical history of bipolar border line personality and schizophrenia affective. Patient is concerned that if she does not take her Plaquenil or Plavix that she may have another heart attack. Severity scale (0 -10): 10 Associated Symptoms: denies other symptoms - Related Data Home Medications Medication Instructions Recorded Confirmed Last Taken lisinopriL [Lisinopril] 20 mg PO DAILY 10/08/17 11/26/17 11/20/17 10:00 Zolpidem [Ambien] 10 mg PO QHS 11/26/17 11/26/17 Unknown Detemir (Nf) [Levemir (Nf)] 60 units SUB-Q HS 11/27/17 11/26/17 Unknown Previous Rx's Medication Instructions Recorded Last Taken Type Aspirin [Aspirin BABY CHEW TAB] 81 mg PO QDAY #30 tab.chew 06/12/17 11/20/17 10:00 Rx Lispro Insulin [HumaLOG] 0 unit SUB-Q ACHS units 11/28/17 Unknown Rx Dicyclomine [Bentyl] 10 mg PO BID #20 capsule 09/01/18 Unknown Rx Fluconazole [Diflucan TAB] 150 mg PO ONCE #2 tablet 09/20/18 Unknown Rx metroNIDAZOLE [Flagyl] 500 mg PO Q12HR #20 tab 09/20/18 Unknown Rx Clindamycin [Clindamycin CAP] 300 mg PO Q6H #21 capsule 11/06/18 Unknown Rx Ibuprofen [Motrin 800 MG tab] 800 mg PO Q8HR PRN #20 tablet 11/06/18 Unknown Rx Acetamin/Codeine 120-12Mg/5 ml 5 ml PO TID #50 ml 11/25/18 Unknown Rx [Tylenol/Codeine] Famotidine [Pepcid] 20 mg PO BID #20 tablet 11/25/18 Unknown Rx Acetaminophen [Acetaminophen TAB] 1,000 mg PO Q6HR PRN #60 tablet 03/26/19 Unknown Rx Ibuprofen [Motrin 800 MG tab] 800 mg PO Q8HR PRN #30 tablet 03/26/19 Unknown Rx predniSONE [Deltasone] 40 mg PO QDAY 5 Days #10 tab 03/26/19 Unknown Rx Blood-Glucose Meter [Glucocard 1 each MC PRN #1 each 04/05/19 Unknown Rx Shine Connex Meter] Insulin Detemir [Levemir Flextouch] 40 unit SQ QHS #4 insuln.pen 04/05/19 Unknown Rx Insulin Regular, Human [HumuLIN R] 10 unit SQ AC #200 units 04/05/19 Unknown Rx Lancets [Glucocom Lancets] 1 each TID #1 pack 04/05/19 Unknown Rx oxyCODONE /ACETAMINOPHEN [Percocet 1 tab PO Q6HR PRN #10 tablet 04/23/19 Unknown Rx 5/325] Dicyclomine [Bentyl] 20 mg PO QID #10 tablet 04/29/19 Unknown Rx HYDROcodone/APAP 5-325 [[place] 1 each PO Q6HR PRN #10 tablet 04/29/19 Unknown Rx 5/325] Ondansetron [Zofran Odt] 4 mg PO Q8HR #10 tab.rapdis 04/29/19 Unknown Rx Acetaminophen/Codeine [Tylenol 1 tab PO Q6H PRN #12 tab 05/15/19 Unknown Rx /Codeine # 3 tab] Ondansetron [Zofran Odt] 4 mg PO Q8HR PRN #12 tab.rapdis 05/15/19 Unknown Rx Ondansetron [Zofran Odt] 4 mg PO Q8HR PRN #10 tab.rapdis 06/29/19 Unknown Rx Naproxen 500 mg PO Q12H PRN #12 tablet 07/18/19 Unknown Rx Clopidogrel [Plavix] 75 mg PO QDAY #30 tablet 07/20/19 Unknown Rx Hydroxychloroquine [Plaquenil] 200 mg PO QDAY #20 tablet 07/20/19 Unknown Rx Allergies Allergy/AdvReac Type Severity Reaction Status Date / Time egg Allergy Hives Verified 04/01/19 12:51 tramadol HCl [From Ultram] Allergy Hives Verified 04/01/19 12:51 vancomycin Allergy Hives Verified 04/01/19 12:51 ED Review of Systems ROS: Stated complaint: MED REFILL-MICHAEL AND HEART Other details as noted in HPI Comment: All other systems reviewed and negative ED Past Medical Hx - Past Medical History Hx Hypertension: Yes Hx CVA: No Hx Heart Attack/AMI: (05/22, cardiac stent x1) Hx Congestive Heart Failure: No Hx Diabetes: Yes (type 2) Hx Deep Vein Thrombosis: No Hx Pulmonary Embolism: No Hx GERD: No Hx Liver Disease: No Hx Renal Disease: No Hx Sickle Cell Disease: No Hx Arthritis: No Hx Headaches / Migraines: No Hx Seizures: No Hx Kidney Stones: No 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 iron deficient anemia - Surgical History Hx Coronary Stent: Yes (x1) Hx Open Heart Surgery: No Hx Pacemaker: No Hx Internal Defibrillator: No Hx Cholecystectomy: No Hx Appendectomy: No Hx Breast Surgery: Yes (breast reduction 05/2004) Additional Surgical History: Breast reduction bilateral,excisional surg. for abscess - Social History Smoking Status: Current Every Day Smoker Substance Use Type: Marijuana - Medications Home Medications: Home Medications Medication Instructions Recorded Confirmed Last Taken Type Aspirin [Aspirin BABY CHEW TAB] 81 mg PO QDAY #30 tab.chew 06/12/17 11/26/17 11/20/17 10:00 Rx lisinopriL [Lisinopril] 20 mg PO DAILY 10/08/17 11/26/17 11/20/17 10:00 History Zolpidem [Ambien] 10 mg PO QHS 11/26/17 11/26/17 Unknown History Detemir (Nf) [Levemir (Nf)] 60 units SUB-Q HS 11/27/17 11/26/17 Unknown History Lispro Insulin [HumaLOG] 0 unit SUB-Q ACHS units 11/28/17 Unknown Rx Dicyclomine [Bentyl] 10 mg PO BID #20 capsule 09/01/18 Unknown Rx Fluconazole [Diflucan TAB] 150 mg PO ONCE #2 tablet 09/20/18 Unknown Rx metroNIDAZOLE [Flagyl] 500 mg PO Q12HR #20 tab 09/20/18 Unknown Rx Clindamycin [Clindamycin CAP] 300 mg PO Q6H #21 capsule 11/06/18 Unknown Rx Ibuprofen [Motrin 800 MG tab] 800 mg PO Q8HR PRN #20 tablet 11/06/18 Unknown Rx Acetamin/Codeine 120-12Mg/5 ml 5 ml PO TID #50 ml 11/25/18 Unknown Rx [Tylenol/Codeine] Famotidine [Pepcid] 20 mg PO BID #20 tablet 11/25/18 Unknown Rx Acetaminophen [Acetaminophen TAB] 1,000 mg PO Q6HR PRN #60 tablet 03/26/19 Unknown Rx Ibuprofen [Motrin 800 MG tab] 800 mg PO Q8HR PRN #30 tablet 03/26/19 Unknown Rx predniSONE [Deltasone] 40 mg PO QDAY 5 Days #10 tab 03/26/19 Unknown Rx Blood-Glucose Meter [Glucocard 1 each PRN #1 each 04/05/19 Unknown Rx Shine Connex Meter] Insulin Detemir [Levemir Flextouch] 40 unit SQ QHS #4 insuln.pen 04/05/19 Unknown Rx Insulin Regular, Human [HumuLIN R] 10 unit SQ AC #200 units 04/05/19 Unknown Rx Lancets [Glucocom Lancets] 1 each TID #1 pack 04/05/19 Unknown Rx oxyCODONE /ACETAMINOPHEN [Percocet 1 tab PO Q6HR PRN #10 tablet 04/23/19 Unknown Rx 5/325] Dicyclomine [Bentyl] 20 mg PO QID #10 tablet 04/29/19 Unknown Rx HYDROcodone/APAP 5-325 [[place] 1 each PO Q6HR PRN #10 tablet 04/29/19 Unknown Rx 5/325] Ondansetron [Zofran Odt] 4 mg PO Q8HR #10 tab.rapdis 04/29/19 Unknown Rx Acetaminophen/Codeine [Tylenol 1 tab PO Q6H PRN #12 tab 05/15/19 Unknown Rx /Codeine # 3 tab] Ondansetron [Zofran Odt] 4 mg PO Q8HR PRN #12 tab.rapdis 02/11/20 Unknown Rx Ondansetron [Zofran Odt] 4 mg PO Q8HR PRN #10 tab.rapdis 06/29/19 Unknown Rx Naproxen 500 mg PO Q12H PRN #12 tablet 07/18/19 Unknown Rx Clopidogrel [Plavix] 75 mg PO QDAY #30 tablet 07/20/19 Unknown Rx Hydroxychloroquine [Plaquenil] 200 mg PO QDAY #20 tablet 07/20/19 Unknown Rx ED Physical Exam - General Limitations: No Limitations General appearance: alert, in no apparent distress - Head Head exam: Present: atraumatic, normocephalic - ENT ENT exam: Present: mucous membranes moist - Neurological Exam Neurological exam: Present: alert, oriented X3, normal gait - Psychiatric Psychiatric exam: Present: normal affect, normal mood - Skin Skin exam: Present: warm, dry, intact, normal color. Absent: rash ED Course Vital Signs 07/20/19 15:45 Temperature 98.0 F Pulse Rate 65 Respiratory 20 Rate Blood Pressure 146/88 O2 Sat by Pulse 97 Oximetry ED Medical Decision Making - Medical Decision Making 39-year-old -[place] female who is well-known by this provider and was recently seen here 2 days ago comes in for lupus flareup and reports she needs medications refills. Patient states that she is out of her Plaquenil and Plavix. Patient states that she made an attempt to see her primary care provider but she did not have $20 co-pay therefore her doctor will not see her or call her medication and. Patient does have a past medical history of bipolar border line personality and schizophrenia affective. Patient is concerned that if she does not take her Plaquenil or Plavix that she may have another heart attack. Patient granted a prescription for Plaquenil and Plavix. I discussed the patient is imperative that she follows up with her primary care provider as emergency room is for emergencies only and not maintenance of chronic disease management. Critical care attestation.: If time is entered above; I have spent that time in minutes in the direct care of this critically ill patient, excluding procedure time. ED Disposition Clinical Impression: Lupus (systemic lupus erythematosus) Disposition: DC-01 TO HOME OR SELFCARE Is pt being admited?: No Does the pt Need Aspirin: No Condition: Stable Additional Instructions: Please take medications as prescribed. It is imperative that you follow-up with your primary care provider as the emergency room is not a primary care clinic and were not able to provide ongoing care for chronic disease management. Prescriptions: Hydroxychloroquine [Plaquenil] 200 mg PO QDAY #20 tablet Clopidogrel [Plavix] 75 mg PO QDAY #30 tablet Referrals: Your, primary care provider [Other] - 3-5 Days
== END 2019-07-20 17:54 | disposition home or self-care (01) ==
LOC: ED 15:38
DX: M32.8 Other forms of systemic lupus erythematosus (principal); I10 Essential (primary) hypertension; E11.9 Type 2 diabetes mellitus without complications; F31.9 Bipolar disorder, unspecified; F25.0 Schizoaffective disorder, bipolar type; Z86.2 Personal history of diseases of the blood and blood-forming organs and certain disorders involving the immune mechanism; F17.200 Nicotine dependence, unspecified, uncomplicated; F12.10 Cannabis abuse, uncomplicated; Z79.899 Other long term (current) drug therapy; Z76.0 Encounter for issue of repeat prescription; Z88.1 Allergy status to other antibiotic agents; Z91.012 Allergy to eggs; R21 Rash and other nonspecific skin eruption
CPT/HCPCS: 99282; Q0162

== ENCOUNTER 2019-07-28 17:49 | Emergency (ER) | payer MEDICARE ==
[2019-07-28 18:34] LABS: HCG Qualitative,Urine Negative (Negative)
[2019-07-28 18:34] LABS: Hematocrit 32.5 % (30.3-42.9); Hemoglobin 10.7 gm/dl (10.1-14.3); Mean Corpuscular HGB Conc 33 % (30-34); Mean Corpuscular Volume 74 fl (79-97); Platelet Count 170 K/mm3 (140-440); Red Blood Count 4.39 M/mm3 (3.65-5.03); Red Cell Distribution Width 15.9 % (13.2-15.2)
[2019-07-28 18:37] LABS: Bilirubin,Urine NEG (Negative); Blood,Urine NEG (Negative); Color,Urine Straw (Yellow); Protein,Urine <15 mg/dL mg/dL (Negative); Urobilinogen,Urine < 2.0 mg/dL (<2.0); WBC,Urine < 1.0 /HPF (0.0-6.0)
[2019-07-28 18:47] LABS: Alanine Aminotransferase 12 units/L (7-56); BUN/Creatinine Ratio 12; Blood Urea Nitrogen 12 mg/dL (7-17); Hemolysis Index 31
--- NOTE | 2019-07-28 19:12 | XRay Report ---
CHEST 2 VIEWS INDICATION / CLINICAL INFORMATION: n/v, dizziness. COMPARISON: 07/03/2019 FINDINGS: SUPPORT DEVICES: None. HEART / MEDIASTINUM: No significant abnormality. LUNGS / PLEURA: No significant pulmonary or pleural abnormality. No pneumothorax. ADDITIONAL FINDINGS: No significant additional findings. IMPRESSION: 1. No acute findings. Signer Name: Matt Barajas MD Signed: 07/28/2019 7:07 PM Workstation Name: [id number]
--- NOTE | 2019-07-28 20:26 | Emergency Department Report ---
ED General Adult HPI - General Chief complaint: Hyperglycemia Stated complaint: SUGAR HIGH Time Seen by Provider: 07/28/19 20:11 Source: patient Mode of arrival: Ambulatory Limitations: No Limitations - History of Present Illness Initial comments: 39-year-old female the past medical history of type 2 diabetes currently on insulin, CAD with stent, hypertension, lupus, borderline personality disorder, bipolar disorder, schizoaffective disorder presents to the house with complaints of poorly controlled sugar/hypoglycemia since being placed on prednisone in June for lupus. Patient has tried multiple times to follow-up with her doctors outpatient however, she cannot afford the co-pay. She is currently taking Humulin R 15 units 3 times daily with meals and Levemir 50 units at night. Today her glucose read high at home despite decreasing her carb intake and compliance with medication. She take extra dose of Humulin R 20 units prior to arrival. Glucose 318 upon initial presentation to the ED. She complained of feeling some intermittent dizziness, chills, increased thirst, and urination since her sugars have been running high. No fever reported - Related Data Home Medications Medication Instructions Recorded Confirmed Last Taken lisinopriL [Lisinopril] 20 mg PO DAILY 10/08/17 11/26/17 11/20/17 10:00 Zolpidem [Ambien] 10 mg PO QHS 11/26/17 11/26/17 Unknown Detemir (Nf) [Levemir (Nf)] 60 units SUB-Q HS 11/27/17 11/26/17 Unknown Previous Rx's Medication Instructions Recorded Last Taken Type Aspirin [Aspirin BABY CHEW TAB] 81 mg PO QDAY #30 tab.chew 06/12/17 11/20/17 10:00 Rx Lispro Insulin [HumaLOG] 0 unit SUB-Q ACHS units 11/28/17 Unknown Rx Dicyclomine [Bentyl] 10 mg PO BID #20 capsule 09/01/18 Unknown Rx Fluconazole [Diflucan TAB] 150 mg PO ONCE #2 tablet 09/20/18 Unknown Rx metroNIDAZOLE [Flagyl] 500 mg PO Q12HR #20 tab 09/20/18 Unknown Rx Clindamycin [Clindamycin CAP] 300 mg PO Q6H #21 capsule 11/06/18 Unknown Rx Ibuprofen [Motrin 800 MG tab] 800 mg PO Q8HR PRN #20 tablet 11/06/18 Unknown Rx Acetamin/Codeine 120-12Mg/5 ml 5 ml PO TID #50 ml 11/25/18 Unknown Rx [Tylenol/Codeine] Famotidine [Pepcid] 20 mg PO BID #20 tablet 11/25/18 Unknown Rx Acetaminophen [Acetaminophen TAB] 1,000 mg PO Q6HR PRN #60 tablet 03/26/19 Unknown Rx Ibuprofen [Motrin 800 MG tab] 800 mg PO Q8HR PRN #30 tablet 03/26/19 Unknown Rx predniSONE [Deltasone] 40 mg PO QDAY 5 Days #10 tab 03/26/19 Unknown Rx Blood-Glucose Meter [Glucocard 1 each PRN #1 each 04/05/19 Unknown Rx Shine Connex Meter] Insulin Detemir [Levemir Flextouch] 40 unit SQ QHS #4 insuln.pen 04/05/19 Unknown Rx Insulin Regular, Human [HumuLIN R] 10 unit SQ AC #200 units 04/05/19 Unknown Rx Lancets [Glucocom Lancets] 1 each TID #1 pack 04/05/19 Unknown Rx oxyCODONE /ACETAMINOPHEN [Percocet 1 tab PO Q6HR PRN #10 tablet 04/23/19 Unknown Rx 5/325] Dicyclomine [Bentyl] 20 mg PO QID #10 tablet 04/29/19 Unknown Rx HYDROcodone/APAP 5-325 [[place] 1 each PO Q6HR PRN #10 tablet 04/29/19 Unknown Rx 5/325] Ondansetron [Zofran Odt] 4 mg PO Q8HR #10 tab.rapdis 04/29/19 Unknown Rx Acetaminophen/Codeine [Tylenol 1 tab PO Q6H PRN #12 tab 05/15/19 Unknown Rx /Codeine # 3 tab] Ondansetron [Zofran Odt] 4 mg PO Q8HR PRN #12 tab.rapdis 05/15/19 Unknown Rx Ondansetron [Zofran Odt] 4 mg PO Q8HR PRN #10 tab.rapdis 06/29/19 Unknown Rx Naproxen 500 mg PO Q12H PRN #12 tablet 07/18/19 Unknown Rx Clopidogrel [Plavix] 75 mg PO QDAY #30 tablet 07/20/19 Unknown Rx Hydroxychloroquine [Plaquenil] 200 mg PO QDAY #20 tablet 07/20/19 Unknown Rx Allergies Allergy/AdvReac Type Severity Reaction Status Date / Time egg Allergy Hives Verified 04/01/19 12:51 tramadol HCl [From Ultram] Allergy Hives Verified 04/01/19 12:51 vancomycin Allergy Hives Verified 04/01/19 12:51 ED Review of Systems ROS: Stated complaint: SUGAR HIGH Other details as noted in HPI Comment: All other systems reviewed and negative ED Past Medical Hx - Past Medical History Previous Medical History?: Yes Hx Hypertension: Yes Hx CVA: No Hx Heart Attack/AMI: Yes (05/22, cardiac stent x1) Hx Congestive Heart Failure: No Hx Diabetes: Yes (type 2) Hx Deep Vein Thrombosis: No Hx Pulmonary Embolism: No Hx GERD: No Hx Liver Disease: No Hx Renal Disease: No Hx Sickle Cell Disease: No Hx Arthritis: No Hx Headaches / Migraines: No Hx Seizures: No Hx Kidney Stones: No 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 iron deficient anemia - Surgical History Past Surgical History?: Yes Hx Coronary Stent: Yes (x1) Hx Open Heart Surgery: No Hx Pacemaker: No Hx Internal Defibrillator: No Hx Cholecystectomy: No Hx Appendectomy: No Hx Breast Surgery: Yes (breast reduction 05/2004) Additional Surgical History: Breast reduction bilateral,excisional surg. for abscess - Social History Smoking Status: Current Every Day Smoker Substance Use Type: Marijuana - Medications Home Medications: Home Medications Medication Instructions Recorded Confirmed Last Taken Type Aspirin [Aspirin BABY CHEW TAB] 81 mg PO QDAY #30 tab.chew 06/12/17 11/26/17 11/20/17 10:00 Rx lisinopriL [Lisinopril] 20 mg PO DAILY 10/08/17 11/26/17 11/20/17 10:00 History Zolpidem [Ambien] 10 mg PO QHS 11/26/17 11/26/17 Unknown History Detemir (Nf) [Levemir (Nf)] 60 units SUB-Q HS 11/27/17 11/26/17 Unknown History Lispro Insulin [HumaLOG] 0 unit SUB-Q ACHS units 11/28/17 Unknown Rx Dicyclomine [Bentyl] 10 mg PO BID #20 capsule 09/01/18 Unknown Rx Fluconazole [Diflucan TAB] 150 mg PO ONCE #2 tablet 09/20/18 Unknown Rx metroNIDAZOLE [Flagyl] 500 mg PO Q12HR #20 tab 09/20/18 Unknown Rx Clindamycin [Clindamycin CAP] 300 mg PO Q6H #21 capsule 11/06/18 Unknown Rx Ibuprofen [Motrin 800 MG tab] 800 mg PO Q8HR PRN #20 tablet 11/06/18 Unknown Rx Acetamin/Codeine 120-12Mg/5 ml 5 ml PO TID #50 ml 11/25/18 Unknown Rx [Tylenol/Codeine] Famotidine [Pepcid] 20 mg PO BID #20 tablet 11/25/18 Unknown Rx Acetaminophen [Acetaminophen TAB] 1,000 mg PO Q6HR PRN #60 tablet 03/26/19 Unknown Rx Ibuprofen [Motrin 800 MG tab] 800 mg PO Q8HR PRN #30 tablet 03/26/19 Unknown Rx predniSONE [Deltasone] 40 mg PO QDAY 5 Days #10 tab 03/26/19 Unknown Rx Blood-Glucose Meter [Glucocard 1 each PRN #1 each 04/05/19 Unknown Rx Shine Connex Meter] Insulin Detemir [Levemir Flextouch] 40 unit SQ QHS #4 insuln.pen 04/05/19 Unknown Rx Insulin Regular, Human [HumuLIN R] 10 unit SQ AC #200 units 04/05/19 Unknown Rx Lancets [Glucocom Lancets] 1 each TID #1 pack 04/05/19 Unknown Rx oxyCODONE /ACETAMINOPHEN [Percocet 1 tab PO Q6HR PRN #10 tablet 04/23/19 Unknown Rx 5/325] Dicyclomine [Bentyl] 20 mg PO QID #10 tablet 04/29/19 Unknown Rx HYDROcodone/APAP 5-325 [[place] 1 each PO Q6HR PRN #10 tablet 04/29/19 Unknown Rx 5/325] Ondansetron [Zofran Odt] 4 mg PO Q8HR #10 tab.rapdis 04/29/19 Unknown Rx Acetaminophen/Codeine [Tylenol 1 tab PO Q6H PRN #12 tab 05/15/19 Unknown Rx /Codeine # 3 tab] Ondansetron [Zofran Odt] 4 mg PO Q8HR PRN #12 tab.rapdis 05/15/19 Unknown Rx Ondansetron [Zofran Odt] 4 mg PO Q8HR PRN #10 tab.rapdis 06/29/19 Unknown Rx Naproxen 500 mg PO Q12H PRN #12 tablet 07/18/19 Unknown Rx Clopidogrel [Plavix] 75 mg PO QDAY #30 tablet 07/20/19 Unknown Rx Hydroxychloroquine [Plaquenil] 200 mg PO QDAY #20 tablet 07/20/19 Unknown Rx ED Physical Exam - General Limitations: No Limitations - Other Other exam information: General: No acute distress Head: Atraumatic Eyes: normal appearance ENT: Moist mucous membranes Neck: Normal appearance, no midline tenderness Chest: Clear to auscultation bilaterally CV: Regular rate and rhythm Abdomen: Soft, normal bowel sounds, nontender, nondistended, no rebound or guarding Back: Normal inspection Extremity: Normal inspection, full range of motion Neuro: Alert O x 3, no facial asymmetry, speech clear, no gross motor sensory deficit Psych: Appropriate behavior Skin: No rash ED Course Vital Signs 07/28/19 07/28/19 07/28/19 18:01 19:46 19:49 Temperature 98.8 F Pulse Rate 90 Respiratory 20 18 Rate Blood Pressure 138/99 137/91 O2 Sat by Pulse 99 Oximetry 07/28/19 07/28/19 20:01 20:21 Temperature Pulse Rate Respiratory Rate Blood Pressure 159/95 160/90 O2 Sat by Pulse 100 100 Oximetry - Consultations Consultation #1: 07/28/19 20:40 Case discussed with hospitalist Dr. Yuan regarding insulin adjustment. Recommend to add Levemir 20 units in a.m. to current regimen and follow ED Medical Decision Making - Lab Data Result diagrams: 07/28/19 18:20 07/28/19 18:20 Lab Results 07/28/19 07/28/19 07/28/19 Range/Units 18:20 18:20 18:21 WBC 7.2 (4.5-11.0) K/mm3 RBC 4.39 (3.65-5.03) M/mm3 Hgb 10.7 (10.1-14.3) gm/dl Hct 32.5 (30.3-42.9) % MCV 74 L (79-97) fl MCH 24 L (28-32) pg MCHC 33 (30-34) % RDW 15.9 H (13.2-15.2) % Plt Count 170 (140-440) K/mm3 Sodium 137 (137-145) mmol/L Potassium 4.2 (3.6-5.0) mmol/L Chloride 101.0 (98-107) mmol/L Carbon Dioxide 23 (22-30) mmol/L Anion Gap 17 mmol/L BUN 12 (7-17) mg/dL Creatinine 1.0 (0.7-1.2) mg/dL Estimated GFR > 60 ml/min BUN/Creatinine Ratio 12 % Glucose 278 H (65-100) mg/dL POC Glucose 318 H (70-105) Calcium 9.0 (8.4-10.2) mg/dL Magnesium 1.90 (1.7-2.3) mg/dL Total Bilirubin 0.20 (0.1-1.2) mg/dL AST 16 (5-40) units/L ALT 12 (7-56) units/L Alkaline Phosphatase 100 (35-129) units/L Total Creatine Kinase 106 (30-135) units/L Total Protein 7.2 (6.3-8.2) g/dL Albumin 4.0 (3.9-5) g/dL Albumin/Globulin Ratio 1.3 % Urine Color (Yellow) Urine Turbidity (Clear) Urine pH (5.0-7.0) Ur Specific [place] (1.003-1.030) Urine Protein (Negative) mg/dL Urine Glucose (UA) (Negative) mg/dL Urine Ketones (Negative) mg/dL Urine Blood (Negative) Urine Nitrite (Negative) Ur Reducing Substances Urine Bilirubin (Negative) Urine Ictotest Urine Urobilinogen (<2.0) mg/dL Ur Leukocyte Esterase (Negative) Urine WBC (Auto) (0.0-6.0) /HPF Urine RBC (Auto) (0.0-6.0) /HPF U Epithel Cells (Auto) (0-13.0) /HPF Urine HCG, Qual (Negative) 07/28/19 07/28/19 Range/Units 20:07 Unknown WBC (4.5-11.0) K/mm3 RBC (3.65-5.03) M/mm3 Hgb (10.1-14.3) gm/dl Hct (30.3-42.9) % MCV (79-97) fl MCH (28-32) pg MCHC (30-34) % RDW (13.2-15.2) % Plt Count (140-440) K/mm3 Sodium (137-145) mmol/L Potassium (3.6-5.0) mmol/L Chloride (98-107) mmol/L Carbon Dioxide (22-30) mmol/L Anion Gap mmol/L BUN (7-17) mg/dL Creatinine (0.7-1.2) mg/dL Estimated GFR ml/min BUN/Creatinine Ratio % Glucose (65-100) mg/dL POC Glucose 182 H (70-105) Calcium (8.4-10.2) mg/dL Magnesium (1.7-2.3) mg/dL Total Bilirubin (0.1-1.2) mg/dL AST (5-40) units/L ALT (7-56) units/L Alkaline Phosphatase (35-129) units/L Total Creatine Kinase (30-135) units/L Total Protein (6.3-8.2) g/dL Albumin (3.9-5) g/dL Albumin/Globulin Ratio % Urine Color Straw (Yellow) Urine Turbidity Clear (Clear) Urine pH 6.0 (5.0-7.0) Ur Specific [place] 1.022 (1.003-1.030) Urine Protein <15 mg/dl (Negative) mg/dL Urine Glucose (UA) >=500 (Negative) mg/dL Urine Ketones Neg (Negative) mg/dL Urine Blood Neg (Negative) Urine Nitrite Neg (Negative) Ur Reducing Substances Not Reportable Urine Bilirubin Neg (Negative) Urine Ictotest Not Reportable Urine Urobilinogen < 2.0 (<2.0) mg/dL Ur Leukocyte Esterase Neg (Negative) Urine WBC (Auto) < 1.0 (0.0-6.0) /HPF Urine RBC (Auto) 3.0 (0.0-6.0) /HPF U Epithel Cells (Auto) 1.0 (0-13.0) /HPF Urine HCG, Qual Negative (Negative) - Radiology Data Radiology results: report reviewed CHEST 2 VIEWS INDICATION / CLINICAL INFORMATION: n/v, dizziness. COMPARISON: 07/03/2019 FINDINGS: SUPPORT DEVICES: None. HEART / MEDIASTINUM: No significant a bnormality. LUNGS / PLEURA: No significant pulmonary or pleural abnormality. No pneumothorax. ADDITIONAL FINDINGS: No significant additional findings. IMPRESSION: 1. No acute findings. - Medical Decision Making Patient with uncontrolled sugars since starting steroids/prednisone in June. No signs of DKA, infection, or cardiopulmonary instability in the ED. Patient has not been and able to follow-up with PCP for financial reasons. Recommended Levemir 20 units in the a.m. in addition to current regiment. Outpatient follow-up advised and additional resources provided. - Differential Diagnosis DKA, hyperglycemia, medication noncompliance, diet noncompliance, infection Critical Care Time: No Critical care attestation.: If time is entered above; I have spent that time in minutes in the direct care of this critically ill patient, excluding procedure time. ED Disposition Clinical Impression: Uncontrolled diabetes mellitus, Hyperglycemia Disposition: DC-01 TO HOME OR SELFCARE Is pt being admited?: No Does the pt Need Aspirin: No Condition: Stable Instructions: Diabetes Mellitus Type 2 in Adults (ED) Additional Instructions: Take the medication as prescribed. Add an extra dose of Levemir 20 units in the morning to your current regiment. Follow-up with your doctor or doctor/clinic provided. Return if symptoms worsen as indicated by your discharge instructions. Referrals: Gena GRANADOS MD [Referring] - 3-5 Days (Endocrinology) ANURADHA BOATENG MD [Staff Physician] - 3-5 Days ([place]) GUILLERMO ANTHONY MD [Staff Physician] - 3-5 Days (Primary care doctor) [facility] [Provider Group] - 3-5 Days (Primary care clinic) Time of Disposition: 20:48
[2019-07-28 21:15] VITALS: BP 126/74
== END 2019-07-28 20:54 | disposition home or self-care (01) ==
LOC: ED 17:49
DX: E11.65 Type 2 diabetes mellitus with hyperglycemia (principal); I10 Essential (primary) hypertension; I25.2 Old myocardial infarction; F31.9 Bipolar disorder, unspecified; F17.200 Nicotine dependence, unspecified, uncomplicated; F12.10 Cannabis abuse, uncomplicated; Z79.1 Long term (current) use of non-steroidal anti-inflammatories (NSAID); Z79.4 Long term (current) use of insulin; Z79.899 Other long term (current) drug therapy; Z88.8 Allergy status to other drugs, medicaments and biological substances; Z91.018 Allergy to other foods
CPT/HCPCS: 36415; 71046; 80053; 81001; 81025; 82550; 82962; 83735; 85027

== ENCOUNTER 2019-08-13 15:21 | Emergency (ER) | payer MEDICARE ==
[2019-08-13 17:13] LABS: Basophils # (Auto) 0.1 K/mm3 (0.0-0.1); Basophils % (Auto) 0.7 % (0.0-1.8); Eosinophils % (Auto) 0.6 % (0.0-4.3); Hematocrit 34.9 % (30.3-42.9); Lymphocytes # (Auto) 2.1 K/mm3 (1.2-5.4); Lymphocytes % (Auto) 25.6 % (13.4-35.0); Mean Corpuscular HGB Conc 31 % (30-34); Mean Corpuscular Volume 75 fl (79-97); Monocytes # (Auto) 0.3 K/mm3 (0.0-0.8); Monocytes % (Auto) 4.3 % (0.0-7.3); Platelet Count 340 K/mm3 (140-440); Red Blood Count 4.67 M/mm3 (3.65-5.03); Red Cell Distribution Width 16.2 % (13.2-15.2)
[2019-08-13 17:35] LABS: BUN/Creatinine Ratio 11; Blood Urea Nitrogen 9 mg/dL (7-17); Calcium 9.3 mg/dL (8.4-10.2); Hemolysis Index 9
--- NOTE | 2019-08-13 17:43 | Emergency Department Report ---
HPI - General Chief Complaint: Hyperglycemia Time Seen by Provider: 08/13/19 16:45 - HPI HPI: 39-year-old -[place] female presents to the emergency department with complaint of uncontrolled blood sugar. She says that it has been erratic despite compliance with her medications. She has a history of insulin-dependent diabetes for which she takes Humulin R 20 units with meals and Levemir 50 units at night. She says that her blood sugar at home was 314 after taking her home medications. She has a history of insulin-dependent diabetes, coronary artery disease with cardiac stent, hypertension, bipolar disorder, lupus, anemia. She does not have a primary care physician but follows with a licensed audiologist through [place]. No recent travel or sick contacts at home. ED Past Medical Hx - Past Medical History Previous Medical History?: Yes Hx Hypertension: Yes Hx CVA: No Hx Heart Attack/AMI: Yes (05/22, cardiac stent x1) Hx Congestive Heart Failure: No Hx Diabetes: Yes (type 2) Hx Deep Vein Thrombosis: No Hx Pulmonary Embolism: No Hx GERD: No Hx Liver Disease: No Hx Renal Disease: No Hx Sickle Cell Disease: No Hx Arthritis: No Hx Headaches / Migraines: No Hx Seizures: No Hx Kidney Stones: No 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 iron deficient anemia - Surgical History Past Surgical History?: Yes Hx Coronary Stent: Yes (x1) Hx Open Heart Surgery: No Hx Pacemaker: No Hx Internal Defibrillator: No Hx Cholecystectomy: No Hx Appendectomy: No Hx Breast Surgery: Yes (breast reduction 05/2004) Additional Surgical History: Breast reduction bilateral,excisional surg. for abscess - Social History Smoking Status: Current Every Day Smoker Substance Use Type: Marijuana - Medications Home Medications: Home Medications Medication Instructions Recorded Confirmed Last Taken Type Aspirin [Aspirin BABY CHEW TAB] 81 mg PO QDAY #30 tab.chew 06/12/17 11/26/17 11/20/17 10:00 Rx lisinopriL [Lisinopril] 20 mg PO DAILY 10/08/17 11/26/17 11/20/17 10:00 History Zolpidem [Ambien] 10 mg PO QHS 11/26/17 11/26/17 Unknown History Detemir (Nf) [Levemir (Nf)] 60 units SUB-Q HS 11/27/17 11/26/17 Unknown History Lispro Insulin [HumaLOG] 0 unit SUB-Q ACHS units 11/28/17 Unknown Rx Dicyclomine [Bentyl] 10 mg PO BID #20 capsule 09/01/18 Unknown Rx Fluconazole [Diflucan TAB] 150 mg PO ONCE #2 tablet 09/20/18 Unknown Rx metroNIDAZOLE [Flagyl] 500 mg PO Q12HR #20 tab 09/20/18 Unknown Rx Clindamycin [Clindamycin CAP] 300 mg PO Q6H #21 capsule 11/06/18 Unknown Rx Ibuprofen [Motrin 800 MG tab] 800 mg PO Q8HR PRN #20 tablet 11/06/18 Unknown Rx Acetamin/Codeine 120-12Mg/5 ml 5 ml PO TID #50 ml 11/25/18 Unknown Rx [Tylenol/Codeine] Famotidine [Pepcid] 20 mg PO BID #20 tablet 11/25/18 Unknown Rx Acetaminophen [Acetaminophen TAB] 1,000 mg PO Q6HR PRN #60 tablet 03/26/19 Unknown Rx Ibuprofen [Motrin 800 MG tab] 800 mg PO Q8HR PRN #30 tablet 03/26/19 Unknown Rx predniSONE [Deltasone] 40 mg PO QDAY 5 Days #10 tab 03/26/19 Unknown Rx Blood-Glucose Meter [Glucocard 1 each MC PRN #1 each 04/05/19 Unknown Rx Shine Connex Meter] Insulin Detemir [Levemir Flextouch] 40 unit SQ QHS #4 insuln.pen 04/05/19 Unknown Rx Insulin Regular, Human [HumuLIN R] 10 unit SQ AC #200 units 04/05/19 Unknown Rx Lancets [Glucocom Lancets] 1 each MC TID #1 pack 04/05/19 Unknown Rx oxyCODONE /ACETAMINOPHEN [Percocet 1 tab PO Q6HR PRN #10 tablet 04/23/19 Unknown Rx 5/325] Dicyclomine [Bentyl] 20 mg PO QID #10 tablet 04/29/19 Unknown Rx HYDROcodone/APAP 5-325 [[place] 1 each PO Q6HR PRN #10 tablet 04/29/19 Unknown Rx 5/325] Ondansetron [Zofran Odt] 4 mg PO Q8HR #10 tab.rapdis 04/29/19 Unknown Rx Acetaminophen/Codeine [Tylenol 1 tab PO Q6H PRN #12 tab 05/15/19 Unknown Rx /Codeine # 3 tab] Ondansetron [Zofran Odt] 4 mg PO Q8HR PRN #12 tab.rapdis 05/15/19 Unknown Rx Ondansetron [Zofran Odt] 4 mg PO Q8HR PRN #10 tab.rapdis 06/29/19 Unknown Rx Naproxen 500 mg PO Q12H PRN #12 tablet 07/18/19 Unknown Rx Clopidogrel [Plavix] 75 mg PO QDAY #30 tablet 07/20/19 Unknown Rx Hydroxychloroquine [Plaquenil] 200 mg PO QDAY #20 tablet 07/20/19 Unknown Rx ED Review of Systems ROS: Stated complaint: SUGAR HIGH Other details as noted in HPI Physical Exam - Physical Exam Vital Signs: Vital Signs 08/13/19 15:25 Temperature 98.0 F Pulse Rate 77 Respiratory 18 Rate Blood Pressure 111/71 O2 Sat by Pulse 98 Oximetry Physical Exam: GENERAL: The patient is well-developed well-nourished. HENT: Normocephalic. Atraumatic. Patient has moist mucous membranes. EYES: Extraocular motions are intact. NECK: Supple. Trachea is midline. CHEST/LUNGS: Clear to auscultation. There is no respiratory distress noted. HEART/CARDIOVASCULAR: Regular. There is no tachycardia. ABDOMEN: Abdomen is soft, nontender. Patient has normal bowel sounds. SKIN: Skin is warm and dry. NEURO: The patient is awake, alert, and oriented. The patient is cooperative. The patient has no focal neurologic deficits. Normal speech. MUSCULOSKELETAL: There is no tenderness or deformity. There is no evidence of acute injury. ED Course Vital Signs 08/13/19 15:25 Temperature 98.0 F Pulse Rate 77 Respiratory 18 Rate Blood Pressure 111/71 O2 Sat by Pulse 98 Oximetry ED Medical Decision Making - Lab Data Result diagrams: 08/13/19 16:49 08/13/19 16:49 - Medical Decision Making This patient presents to the emergency department with a complaint of asymptomatic hypoglycemia despite alleged compliance with her insulin. The p atient does not appear in diabetic ketoacidosis as there is no venous acidosis or significant elevation in the anion gap. Her Accu-Chek was at about 240 and the serum blood sugar came back at about 320. Vital signs stable throughout her ED course. The patient appears safe for discharge home. She has an appointment with her licensed audiologist on Tuesday, in about 1 week. In the meantime the patient has been instructed to continue taking both her short and long-acting insulin and being stricter with her diet to avoid any sugar, starches, carbohydrates. The patient will keep a blood sugar log. She will return to the emergency department with any worsening of her symptoms or any acute distress. Critical Care Time: No Critical care attestation.: If time is entered above; I have spent that time in minutes in the direct care of this critically ill patient, excluding procedure time. ED Disposition Clinical Impression: Hyperglycemia without ketosis Uncontrolled diabetes mellitus Qualifiers: Diabetes mellitus type: other specified (including JING) Glycemic state: with hyperglycemia Qualified Code(s): E13.65 - Other specified diabetes mellitus with hyperglycemia Disposition: DC- TO HOME OR SELFCARE Is pt being admited?: No Condition: Stable Instructions: Diabetic Hyperglycemia (ED) Additional Instructions: Please follow-up with your licensed audiologist in the next few days. Take your insulin as previously prescribed. Try and stay away from foods that are high in sugar, carbohydrates and starches. Keep a blood sugar log. Return to the emergency department with any worsening of your symptoms or any acute distress. Referrals: PRIMARY CARE, [Primary Care Provider] - 2-3 Days [facility], Your [Other] - 2-3 Days Time of Disposition: 17:43
[2019-08-14 13:30] VITALS: BP 111/71
== END 2019-08-13 17:57 | disposition home or self-care (01) ==
LOC: ED 15:21
DX: E11.65 Type 2 diabetes mellitus with hyperglycemia (principal); I10 Essential (primary) hypertension; I25.2 Old myocardial infarction; F25.0 Schizoaffective disorder, bipolar type; F17.200 Nicotine dependence, unspecified, uncomplicated; F12.90 Cannabis use, unspecified, uncomplicated; Z98.890 Other specified postprocedural states; Z91.012 Allergy to eggs; Z88.8 Allergy status to other drugs, medicaments and biological substances; Z79.899 Other long term (current) drug therapy
CPT/HCPCS: 36415; 80048; 82805; 82962; 85025; 99283

== ENCOUNTER 2019-08-23 20:25 | Emergency (ER) | payer MEDICARE ==
[2019-08-23 20:56] VITALS: BP 153/88
[2019-08-23 21:21] LABS: Basophils # (Auto) 0.1 K/mm3 (0.0-0.1); Eosinophils # (Auto) 0.1 K/mm3 (0.0-0.4); Eosinophils % (Auto) 0.8 % (0.0-4.3); Monocytes # (Auto) 0.4 K/mm3 (0.0-0.8); Monocytes % (Auto) 4.7 % (0.0-7.3)
[2019-08-23 21:25] LABS: Bilirubin,Urine NEG (Negative); Blood,Urine SM (Negative); Color,Urine Yellow (Yellow); Mucus,Urine FEW /HPF; Protein,Urine <15 mg/dL mg/dL (Negative); Urobilinogen,Urine < 2.0 mg/dL (<2.0); WBC,Urine < 1.0 /HPF (0.0-6.0)
[2019-08-23 21:30] LABS: Basophils % (Auto) 0.5 % (0.0-1.8); Hematocrit 32.9 % (30.3-42.9); Hemoglobin 10.6 gm/dl (10.1-14.3); Lymphocytes # (Auto) 2.9 K/mm3 (1.2-5.4); Lymphocytes % (Auto) 35.8 % (13.4-35.0); Mean Corpuscular HGB Conc 32 % (30-34); Mean Corpuscular Volume 72 fl (79-97); Platelet Count 276 K/mm3 (140-440); Red Blood Count 4.55 M/mm3 (3.65-5.03); Red Cell Distribution Width 15.9 % (13.2-15.2)
[2019-08-23 21:36] LABS: Alanine Aminotransferase 11 units/L (7-56); Albumin 3.8 g/dL (3.9-5); BUN/Creatinine Ratio 11; Blood Urea Nitrogen 8 mg/dL (7-17); Calcium 8.6 mg/dL (8.4-10.2); Hemolysis Index 1
[2019-08-23] MEDS ORDERED: LIDOCAINE VISCOUS 2% 15 ML ORAL LIQD PO ONE (21:41)
[2019-08-23] MEDS ORDERED: ALUM-MAG HYDROXIDE-SIMETHICONE 200-200-20MG/5ML ORAL LIQD 30 ML PO ONE (21:41)
[2019-08-23] MEDS ORDERED: ONDANSETRON 4 MG ODT TAB PO ONE (21:41)
--- NOTE | 2019-08-23 21:58 | Emergency Department Report ---
ED N/V/D HPI - General Chief complaint: Abdominal Pain Stated complaint: n/v headache fever Time Seen by Provider: 08/23/19 21:39 Source: family Mode of arrival: Ambulatory Limitations: No Limitations - History of Present Illness Initial comments: Ms. Moody is a 39-year-old -Citizen Of [place] female with history of diabetes type 2, and Lupus she frequents this emergency department and several other emergency departments in the [facility] area, denies she complains of nausea vomiting with intermittent diarrhea after eating leftovers on yesterday. Her diabetes is controlled with regular and long-acting insulin, blood use today glucose today is 250, she states nocturnal fever however no fever noted in triage vital signs are stable in triage patient appears well well-hydrated nontoxic and with no acute distress. She states exacerbated symptoms triggered by po intake. Patient has multiple prescriptions in [facility] for narcotics last 08/13/2019 oxycodone at [facility]. complaint: nausea, vomiting Onset/Timin -: days(s) Time: 01:00 Description of Vomiting: food contents Associated Abdominal Pain: Yes (cramps) Location: LLQ Severity: moderate Pain Scale: 2 Quality: cramping Consistency: intermittent Improves with: none Worsens with: eating Context: possible food poisoning Associated Symptoms: fever/chills, nausea/vomiting - Related Data Home Medications Medication Instructions Recorded Confirmed Last Taken lisinopriL [Lisinopril] 20 mg PO DAILY 10/08/17 11/26/17 11/20/17 10:00 Zolpidem [Ambien] 10 mg PO QHS 11/26/17 11/26/17 Unknown Detemir (Nf) [Levemir (Nf)] 60 units SUB-Q HS 11/27/17 11/26/17 Unknown Previous Rx's Medication Instructions Recorded Last Taken Type Aspirin [Aspirin BABY CHEW TAB] 81 mg PO QDAY #30 tab.chew 06/12/17 11/20/17 10:00 Rx Lispro Insulin [HumaLOG] 0 unit SUB-Q ACHS units 11/28/17 Unknown Rx Dicyclomine [Bentyl] 10 mg PO BID #20 capsule 09/01/18 Unknown Rx Fluconazole (Nf) [Diflucan TAB] 150 mg PO ONCE #2 tablet 09/20/18 Unknown Rx metroNIDAZOLE [Flagyl] 500 mg PO Q12HR #20 tab 09/20/18 Unknown Rx Clindamycin [Clindamycin CAP] 300 mg PO Q6H #21 capsule 11/06/18 Unknown Rx Ibuprofen [Motrin 800 MG tab] 800 mg PO Q8HR PRN #20 tablet 11/06/18 Unknown Rx Acetamin/Codeine 120-12Mg/5 ml 5 ml PO TID #50 ml 11/25/18 Unknown Rx [Tylenol/Codeine] Famotidine [Pepcid] 20 mg PO BID #20 tablet 11/25/18 Unknown Rx Acetaminophen [Acetaminophen TAB] 1,000 mg PO Q6HR PRN #60 tablet 03/26/19 Unknown Rx Ibuprofen [Motrin 800 MG tab] 800 mg PO Q8HR PRN #30 tablet 03/26/19 Unknown Rx predniSONE [Deltasone] 40 mg PO QDAY 5 Days #10 tab 03/26/19 Unknown Rx Blood-Glucose Meter [Glucocard 1 each PRN #1 each 04/05/19 Unknown Rx Shine Connex Meter] Insulin Detemir [Levemir Flextouch] 40 unit SQ QHS #4 insuln.pen 04/05/19 Unknown Rx Insulin Regular, Human [HumuLIN R] 10 unit SQ AC #200 units 04/05/19 Unknown Rx Lancets [Glucocom Lancets] 1 each TID #1 pack 04/05/19 Unknown Rx oxyCODONE /ACETAMINOPHEN [Percocet 1 tab PO Q6HR PRN #10 tablet 04/23/19 Unknown Rx 5/325] Dicyclomine [Bentyl] 20 mg PO QID #10 tablet 04/29/19 Unknown Rx HYDROcodone/APAP 5-325 [[place] 1 each PO Q6HR PRN #10 tablet 04/29/19 Unknown Rx 5/325] Ondansetron [Zofran Odt] 4 mg PO Q8HR #10 tab.rapdis 04/29/19 Unknown Rx Acetaminophen/Codeine [Tylenol 1 tab PO Q6H PRN #12 tab 05/15/19 Unknown Rx /Codeine # 3 tab] Ondansetron [Zofran Odt] 4 mg PO Q8HR PRN #12 tab.rapdis 05/15/19 Unknown Rx Ondansetron [Zofran Odt] 4 mg PO Q8HR PRN #10 tab.rapdis 03/27/20 Unknown Rx Naproxen 500 mg PO Q12H PRN #12 tablet 07/18/19 Unknown Rx Clopidogrel [Plavix] 75 mg PO QDAY #30 tablet 07/20/19 Unknown Rx Hydroxychloroquine [Plaquenil] 200 mg PO QDAY #20 tablet 07/20/19 Unknown Rx Dicyclomine [Bentyl] 10 mg PO QID PRN #30 capsule 08/23/19 Unknown Rx Naproxen 500 mg PO BID PRN #30 tablet 08/23/19 Unknown Rx Ondansetron [Zofran Odt] 4 mg PO Q8HR PRN #12 tab.rapdis 08/23/19 Unknown Rx Allergies Allergy/AdvReac Type Severity Reaction Status Date / Time egg Allergy Hives Verified 04/01/19 12:51 tramadol HCl [From Ultram] Allergy Hives Verified 04/01/19 12:51 vancomycin Allergy Hives Verified 04/01/19 12:51 ED Review of Systems ROS: Stated complaint: n/v headache fever Other details as noted in HPI Constitutional: denies: chills, fever Eyes: denies: eye pain, eye discharge, vision change ENT: denies: ear pain, throat pain Respiratory: denies: cough, shortness of breath, wheezing Cardiovascular: denies: chest pain, palpitations Endocrine: no symptoms reported Gastrointestinal: nausea, vomiting, diarrhea Genitourinary: frequency. denies: urgency, dysuria, discharge Musculoskeletal: denies: back pain, joint swelling, arthralgia Skin: denies: rash, lesions Neurological: denies: headache, weakness, paresthesias Psychiatric: denies: anxiety, depression Hematological/Lymphatic: denies: easy bleeding, easy bruising ED Past Medical Hx - Past Medical History Hx Hypertension: Yes Hx CVA: No Hx Heart Attack/AMI: Yes (05/22, cardiac stent x1) Hx Congestive Heart Failure: No Hx Diabetes: Yes (type 2) Hx Deep Vein Thrombosis: No Hx Pulmonary Embolism: No Hx GERD: No Hx Liver Disease: No Hx Renal Disease: No Hx Sickle Cell Disease: No Hx Arthritis: No Hx Headaches / Migraines: No Hx Seizures: No Hx Kidney Stones: No 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 iron deficient anemia - Surgical History Hx Coronary Stent: Yes (x1) Hx Open Heart Surgery: No Hx Pacemaker: No Hx Internal Defibrillator: No Hx Cholecystectomy: No Hx Appendectomy: No Hx Breast Surgery: Yes (breast reduction 05/2004) Additional Surgical History: Breast reduction bilateral,excisional surg. for abscess - Social History Smoking Status: Current Every Day Smoker Substance Use Type: Marijuana - Medications Home Medications: Home Medications Medication Instructions Recorded Confirmed Last Taken Type Aspirin [Aspirin BABY CHEW TAB] 81 mg PO QDAY #30 tab.chew 06/12/17 11/26/17 11/20/17 10:00 Rx lisinopriL [Lisinopril] 20 mg PO DAILY 10/08/17 11/26/17 11/20/17 10:00 History Zolpidem [Ambien] 10 mg PO QHS 11/26/17 11/26/17 Unknown History Detemir (Nf) [Levemir (Nf)] 60 units SUB-Q HS 11/27/17 11/26/17 Unknown History Lispro Insulin [HumaLOG] 0 unit SUB-Q ACHS units 11/28/17 Unknown Rx Dicyclomine [Bentyl] 10 mg PO BID #20 capsule 09/01/18 Unknown Rx Fluconazole (Nf) [Diflucan TAB] 150 mg PO ONCE #2 tablet 09/20/18 Unknown Rx metroNIDAZOLE [Flagyl] 500 mg PO Q12HR #20 tab 09/20/18 Unknown Rx Clindamycin [Clindamycin CAP] 300 mg PO Q6H #21 capsule 11/06/18 Unknown Rx Ibuprofen [Motrin 800 MG tab] 800 mg PO Q8HR PRN #20 tablet 11/06/18 Unknown Rx Acetamin/Codeine 120-12Mg/5 ml 5 ml PO TID #50 ml 11/25/18 Unknown Rx [Tylenol/Codeine] Famotidine [Pepcid] 20 mg PO BID #20 tablet 11/25/18 Unknown Rx Acetaminophen [Acetaminophen TAB] 1,000 mg PO Q6HR PRN #60 tablet 03/26/19 Unknown Rx Ibuprofen [Motrin 800 MG tab] 800 mg PO Q8HR PRN #30 tablet 03/26/19 Unknown Rx predniSONE [Deltasone] 40 mg PO QDAY 5 Days #10 tab 03/26/19 Unknown Rx Blood-Glucose Meter [Glucocard 1 each PRN #1 each 04/05/19 Unknown Rx Shine Connex Meter] Insulin Detemir [Levemir Flextouch] 40 unit SQ QHS #4 insuln.pen 04/05/19 Unknown Rx Insulin Regular, Human [HumuLIN R] 10 unit SQ AC #200 units 04/05/19 Unknown Rx Lancets [Glucocom Lancets] 1 each TID #1 pack 04/05/19 Unknown Rx oxyCODONE /ACETAMINOPHEN [Percocet 1 tab PO Q6HR PRN #10 tablet 04/23/19 Unknown Rx 5/325] Dicyclomine [Bentyl] 20 mg PO QID #10 tablet 04/29/19 Unknown Rx HYDROcodone/APAP 5-325 [[place] 1 each PO Q6HR PRN #10 tablet 04/29/19 Unknown Rx 5/325] Ondansetron [Zofran Odt] 4 mg PO Q8HR #10 tab.rapdis 04/29/19 Unknown Rx Acetaminophen/Codeine [Tylenol 1 tab PO Q6H PRN #12 tab 05/15/19 Unknown Rx /Codeine # 3 tab] Ondansetron [Zofran Odt] 4 mg PO Q8HR PRN #12 tab.rapdis 05/15/19 Unknown Rx Ondansetron [Zofran Odt] 4 mg PO Q8HR PRN #10 tab.rapdis 06/29/19 Unknown Rx Naproxen 500 mg PO Q12H PRN #12 tablet 07/18/19 Unknown Rx Clopidogrel [Plavix] 75 mg PO QDAY #30 tablet 07/20/19 Unknown Rx Hydroxychloroquine [Plaquenil] 200 mg PO QDAY #20 tablet 07/20/19 Unknown Rx Dicyclomine [Bentyl] 10 mg PO QID PRN #30 capsule 08/23/19 Unknown Rx Naproxen 500 mg PO BID PRN #30 tablet 08/23/19 Unknown Rx Ondansetron [Zofran Odt] 4 mg PO Q8HR PRN #12 tab.rapdis 08/23/19 Unknown Rx ED Physical Exam - General Limitations: No Limitations General appearance: alert, in no apparent distress - Head Head exam: Present: atraumatic, normocephalic - Eye Eye exam: Present: normal appearance, PERRL Pupils: Present: normal accommodation - ENT ENT exam: Present: mucous membranes moist - Neck Neck exam: Present: normal inspection, full ROM. Absent: tenderness - Respiratory Respiratory exam: Present: normal lung sounds bilaterally. Absent: respiratory distress, wheezes - Cardiovascular Cardiovascular Exam: Present: regular rate, normal rhythm, normal heart sounds. Absent: systolic murmur, diastolic murmur, rubs, gallop - GI/Abdominal GI/Abdominal exam: Present: soft, normal bowel sounds. Absent: distended, tenderness, bruit, hernia - Rectal Rectal exam: Present: deferred - Extremities Exam Extremities exam: Present: normal inspection, full ROM, normal capillary refill. Absent: tenderness - Back Exam Back exam: Present: normal inspection, full ROM. Absent: tenderness, CVA tenderness (R), CVA tenderness (L) - Neurological Exam Neurological exam: Present: alert, oriented X3, CN II-XII intact, normal gait - Psychiatric Psychiatric exam: Present: normal affect, normal mood - Skin Skin exam: Present: warm, dry, intact, normal color. Absent: rash ED Course Vital Signs 08/23/19 20:48 Temperature 98.7 F Pulse Rate 86 Respiratory 18 Rate Blood Pressure 153/88 O2 Sat by Pulse 99 Oximetry ED Medical Decision Making - Lab Data Result diagrams: 08/23/19 21:01 08/23/19 21:01 Labs 08/23/19 08/23/19 08/23/19 20:56 21:01 21:01 WBC 8.2 RBC 4.55 Hgb 10.6 Hct 32.9 MCV 72 L MCH 23 L MCHC 32 RDW 15.9 H Plt Count 276 Lymph % (Auto) 35.8 H [place] % (Auto) 4.7 Eos % (Auto) 0.8 Baso % (Auto) 0.5 Lymph # 2.9 [place] # 0.4 Eos # 0.1 Baso # 0.1 Seg Neutrophils % 58.0 Seg Neutrophils # 5.1 VBG pH Sodium 138 Potassium 3.5 L Chloride 101.9 Carbon Dioxide 21 L Anion Gap 19 BUN 8 Creatinine 0.7 Estimated GFR > 60 BUN/Creatinine Ratio 11 Glucose 252 H Calcium 8.6 Total Bilirubin 0.20 AST 10 ALT 11 Alkaline Phosphatase 88 Total Protein 7.2 Albumin 3.8 L Albumin/Globulin Ratio 1.1 Lipase HCG, Quant Urine Color Yellow Urine Turbidity Clear Urine pH 6.0 Ur Specific [place] 1.011 Urine Protein <15 mg/dl Urine Glucose (UA) >=500 Urine Ketones Neg Urine Blood Sm Urine Nitrite Neg Urine Bilirubin Neg Urine Urobilinogen < 2.0 Ur Leukocyte Esterase Neg Urine WBC (Auto) < 1.0 Urine RBC (Auto) 2.0 U Epithel Cells (Auto) 3.0 Urine Mucus Few 08/23/19 08/23/19 08/23/19 21:01 21: 21:01 WBC RBC Hgb Hct MCV MCH MCHC RDW Plt Count Lymph % (Auto) [place] % (Auto) Eos % (Auto) Baso % (Auto) Lymph # [place] # Eos # Baso # Seg Neutrophils % Seg Neutrophils # VBG pH 7.452 H Sodium Potassium Chloride Carbon Dioxide Anion Gap BUN Creatinine Estimated GFR BUN/Creatinine Ratio Glucose Calcium Total Bilirubin AST ALT Alkaline Phosphatase Total Protein Albumin Albumin/Globulin Ratio Lipase 38 HCG, Quant < 2 Urine Color Urine Turbidity Urine pH Ur Specific [place] Urine Protein Urine Glucose (UA) Urine Ketones Urine Blood Urine Nitrite Urine Bilirubin Urine Urobilinogen Ur Leukocyte Esterase Urine WBC (Auto) Urine RBC (Auto) U Epithel Cells (Auto) Urine Mucus - Medical Decision Making Labs noted improved from baseline for this patient, symptoms improved with medications given in ED, plan Zofran ODT Bentyl p.o. as needed abdominal spasms patient will follow-up with PCP tomorrow ,patient verbalizes agreement and understanding of discharge plan will be DC'd home in stable condition at this time. Critical care attestation.: If time is entered above; I have spent that time in minutes in the direct care of this critically ill patient, excluding procedure time. ED Disposition Clinical Impression: Nausea and vomiting Qualifiers: Vomiting type: unspecified Vomiting Intractability: non-intractable Qualified Code(s): R11.2 - Nausea with vomiting, unspecified Disposition: DC-01 TO HOME OR SELFCARE Is pt being admited?: No Does the pt Need Aspirin: No Condition: Stable Instructions: Abdominal Pain (ED), Acute Nausea and Vomiting (ED) Prescriptions: Dicyclomine [Bentyl] 10 mg PO QID PRN #30 capsule PRN Reason: abdominal spasm Naproxen 500 mg PO BID PRN #30 tablet PRN Reason: pain Ondansetron [Zofran Odt] 4 mg PO Q8HR PRN #12 tab.rapdis PRN Reason: nausea and vomiting Referrals: PRIMARY CARE,MD [Primary Care Provider] - 3-5 Days Forms: Work/School Release Form(ED) Time of Disposition: 22:08
== END 2019-08-23 22:38 | disposition home or self-care (01) ==
LOC: ED 20:25
DX: R11.2 Nausea with vomiting, unspecified (principal); I10 Essential (primary) hypertension; I25.2 Old myocardial infarction; E11.9 Type 2 diabetes mellitus without complications; F25.0 Schizoaffective disorder, bipolar type; F17.200 Nicotine dependence, unspecified, uncomplicated; F12.90 Cannabis use, unspecified, uncomplicated; Z79.899 Other long term (current) drug therapy; Z88.8 Allergy status to other drugs, medicaments and biological substances; Z98.890 Other specified postprocedural states
CPT/HCPCS: 36415; 80053; 81001; 82805; 83690; 84702; 85025; 99283; Q0162

== ENCOUNTER 2019-08-25 23:12 | Emergency (ER) | payer MEDICARE ==
[2019-08-26] MEDS ORDERED: ASPIRIN 325 MG TAB PO ONE (00:13)
[2019-08-26 00:52] LABS: Basophils # (Auto) 0.1 K/mm3 (0.0-0.1); Basophils % (Auto) 0.6 % (0.0-1.8); Eosinophils % (Auto) 0.5 % (0.0-4.3); Hematocrit 28.8 % (30.3-42.9); Hemoglobin 9.5 gm/dl (10.1-14.3); Lymphocytes # (Auto) 3.3 K/mm3 (1.2-5.4); Lymphocytes % (Auto) 34.9 % (13.4-35.0); Mean Corpuscular HGB Conc 33 % (30-34); Mean Corpuscular Volume 74 fl (79-97); Monocytes # (Auto) 0.6 K/mm3 (0.0-0.8); Monocytes % (Auto) 6.5 % (0.0-7.3); Platelet Count 205 K/mm3 (140-440); Red Blood Count 3.91 M/mm3 (3.65-5.03); Red Cell Distribution Width 16.2 % (13.2-15.2)
[2019-08-26 01:13] LABS: BUN/Creatinine Ratio 10; Blood Urea Nitrogen 8 mg/dL (7-17); Calcium 8.5 mg/dL (8.4-10.2); Hemolysis Index 5
--- NOTE | 2019-08-26 02:27 | XRay Report ---
CHEST 1 VIEW, 08/26/2019 2:08 AM CLINICAL INFORMATION/INDICATION: Shortness of breath COMPARISON: Chest radiograph, 07/28/2019 FINDINGS: SUPPORT DEVICES: None. HEART: The cardiac silhouette is normal in size. LUNGS/PLEURA: The lungs are well expanded and appear clear of focal airspace disease or significant p leural effusion. ADDITIONAL FINDINGS: No additional acute findings. IMPRESSION: 1. No evidence of acute cardiopulmonary process. Signer Name: Anabella Espinosa MD Signed: 08/26/2019 2:23 AM Workstation Name: [email or web address]
--- NOTE | 2019-08-26 04:02 | Emergency Department Report ---
ED Chest Pain HPI - General Chief Complaint: Chest Pain Stated Complaint: SOB/CP/HBS Time Seen by Provider: 08/26/19 02:15 Source: patient Mode of arrival: Ambulatory Limitations: No Limitations - History of Present Illness Initial Comments: 39-year-old F Citizen Of [place] female with past medical history of type 2 diabetes, hypertension, lupus disorder, cardiovascular stent placement in 2018, iron deficiency anemia, bipolar disorder. States she is been having chest pain for about the last 4 hours and an episodic fashion primarily to the epigastric region sharp in nature with an occasional cramp. The primary reason to come to the emergency department was fluctuance of blood sugar that does not appear to be responding to her insulin. States that she is been taking her insulin and blood sugars have been averaging around 2 50-2 50 with occasional spikes. She reports no easy fatigue, no sweats, no nausea, no vomiting, no blurry vision or dizziness. She has also she is also denied any known contact with the coronavirus, palpitations, hemoptysis, hematemesis, hematochezia. She is seeking to have some her medications adjusted as she has been unable to get in with her primary care doctor although she had attempted to utilize the telehealth pathway with her PCP yesterday remained unsuccessful for reasons unknown -: Gradual Pain Location: epigastric Pain Radiation: none Severity: mild re: denies: diaphoresis, dyspnea, sense of impending doom - Related Data Home Medications Medication Instructions Recorded Confirmed Last Taken lisinopriL [Lisinopril] 20 mg PO DAILY 10/08/17 11/26/17 11/20/17 10:00 Zolpidem [Ambien] 10 mg PO QHS 11/26/17 11/26/17 Unknown Detemir (Nf) [Levemir (Nf)] 60 units SUB-Q HS 11/27/17 11/26/17 Unknown Previous Rx's Medication Instructions Recorded Last Taken Type Aspirin [Aspirin BABY CHEW TAB] 81 mg PO QDAY #30 tab.chew 06/12/17 11/20/17 10:00 Rx Lispro Insulin [HumaLOG] 0 unit SUB-Q ACHS units 11/28/17 Unknown Rx Dicyclomine [Bentyl] 10 mg PO BID #20 capsule 09/01/18 Unknown Rx Fluconazole (Nf) [Diflucan TAB] 150 mg PO ONCE #2 tablet 09/20/18 Unknown Rx metroNIDAZOLE [Flagyl] 500 mg PO Q12HR #20 tab 09/20/18 Unknown Rx Clindamycin [Clindamycin CAP] 300 mg PO Q6H #21 capsule 11/06/18 Unknown Rx Ibuprofen [Motrin 800 MG tab] 800 mg PO Q8HR PRN #20 tablet 11/06/18 Unknown Rx Acetamin/Codeine 120-12Mg/5 ml 5 ml PO TID #50 ml 11/25/18 Unknown Rx [Tylenol/Codeine] Famotidine [Pepcid] 20 mg PO BID #20 tablet 11/25/18 Unknown Rx Acetaminophen [Acetaminophen TAB] 1,000 mg PO Q6HR PRN #60 tablet 03/26/19 Unknown Rx Ibuprofen [Motrin 800 MG tab] 800 mg PO Q8HR PRN #30 tablet 03/26/19 Unknown Rx predniSONE [Deltasone] 40 mg PO QDAY 5 Days #10 tab 03/26/19 Unknown Rx Blood-Glucose Meter [Glucocard 1 each PRN #1 each 04/05/19 Unknown Rx Shine Connex Meter] Insulin Detemir [Levemir Flextouch] 40 unit SQ QHS #4 insuln.pen 04/05/19 Unknown Rx Insulin Regular, Human [HumuLIN R] 10 unit SQ AC #200 units 04/05/19 Unknown Rx Lancets [Glucocom Lancets] 1 each TID #1 pack 04/05/19 Unknown Rx oxyCODONE /ACETAMINOPHEN [Percocet 1 tab PO Q6HR PRN #10 tablet 04/23/19 Unknown Rx 5/325] Dicyclomine [Bentyl] 20 mg PO QID #10 tablet 04/29/19 Unknown Rx HYDROcodone/APAP 5-325 [[place] 1 each PO Q6HR PRN #10 tablet 04/29/19 Unknown Rx 5/325] Ondansetron [Zofran Odt] 4 mg PO Q8HR #10 tab.rapdis 04/29/19 Unknown Rx Acetaminophen/Codeine [Tylenol 1 tab PO Q6H PRN #12 tab 05/15/19 Unknown Rx /Codeine # 3 tab] Ondansetron [Zofran Odt] 4 mg PO Q8HR PRN #12 tab.rapdis 05/15/19 Unknown Rx Ondansetron [Zofran Odt] 4 mg PO Q8HR PRN #10 tab.rapdis 06/29/19 Unknown Rx Naproxen 500 mg PO Q12H PRN #12 tablet 07/18/19 Unknown Rx Clopidogrel [Plavix] 75 mg PO QDAY #30 tablet 07/20/19 Unknown Rx Hydroxychloroquine [Plaquenil] 200 mg PO QDAY #20 tablet 07/20/19 Unknown Rx Dicyclomine [Bentyl] 10 mg PO QID PRN #30 capsule 08/23/19 Unknown Rx Naproxen 500 mg PO BID PRN #30 tablet 08/23/19 Unknown Rx Ondansetron [Zofran Odt] 4 mg PO Q8HR PRN #12 tab.rapdis 08/23/19 Unknown Rx Allergies Allergy/AdvReac Type Severity Reaction Status Date / Time egg Allergy Hives Verified 04/01/19 12:51 tramadol HCl [From Ultram] Allergy Hives Verified 04/01/19 12:51 vancomycin Allergy Hives Verified 04/01/19 12:51 Heart Score - HEART Score History: Slightly suspicious EKG: Normal Age: < 45 Risk factors: 1-2 risk factors Troponin: < normal limit HEART Score: 1 ED Review of Systems ROS: Stated complaint: SOB/CP/HBS Other details as noted in HPI Comment: All other systems reviewed and negative ED Past Medical Hx - Past Medical History Previous Medical History?: Yes Hx Hypertension: Yes Hx CVA: No Hx Heart Attack/AMI: Yes (05/22, cardiac stent x1) Hx Congestive Heart Failure: No Hx Diabetes: Yes (type 2) Hx Deep Vein Thrombosis: No Hx Pulmonary Embolism: No Hx GERD: No Hx Liver Disease: No Hx Renal Disease: No Hx Sickle Cell Disease: No Hx Arthritis: No Hx Headaches / Migraines: No Hx Seizures: No Hx Kidney Stones: No 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 iron deficient anemia - Surgical History Past Surgical History?: Yes Hx Coronary Stent: Yes (x1) Hx Open Heart Surgery: No Hx Pacemaker: No Hx Internal Defibrillator: No Hx Cholecystectomy: No Hx Appendectomy: No Hx Breast Surgery: Yes (breast reduction 05/2004) Additional Surgical History: Breast reduction bilateral,excisional surg. for abscess - Social History Smoking Status: Current Every Day Smoker Substance Use Type: Marijuana - Medications Home Medications: Home Medications Medication Instructions Recorded Confirmed Last Taken Type Aspirin [Aspirin BABY CHEW TAB] 81 mg PO QDAY #30 tab.chew 06/12/17 11/26/17 11/20/17 10:00 Rx lisinopriL [Lisinopril] 20 mg PO DAILY 10/08/17 11/26/17 11/20/17 10:00 History Zolpidem [Ambien] 10 mg PO QHS 11/26/17 11/26/17 Unknown History Detemir (Nf) [Levemir (Nf)] 60 units SUB-Q HS 11/27/17 11/26/17 Unknown History Lispro Insulin [HumaLOG] 0 unit SUB-Q ACHS units 11/28/17 Unknown Rx Dicyclomine [Bentyl] 10 mg PO BID #20 capsule 09/01/18 Unknown Rx Fluconazole (Nf) [Diflucan TAB] 150 mg PO ONCE #2 tablet 09/20/18 Unknown Rx metroNIDAZOLE [Flagyl] 500 mg PO Q12HR #20 tab 09/20/18 Unknown Rx Clindamycin [Clindamycin CAP] 300 mg PO Q6H #21 capsule 11/06/18 Unknown Rx Ibuprofen [Motrin 800 MG tab] 800 mg PO Q8HR PRN #20 tablet 11/06/18 Unknown Rx Acetamin/Codeine 120-12Mg/5 ml 5 ml PO TID #50 ml 11/25/18 Unknown Rx [Tylenol/Codeine] Famotidine [Pepcid] 20 mg PO BID #20 tablet 11/25/18 Unknown Rx Acetaminophen [Acetaminophen TAB] 1,000 mg PO Q6HR PRN #60 tablet 03/26/19 Unknown Rx Ibuprofen [Motrin 800 MG tab] 800 mg PO Q8HR PRN #30 tablet 03/26/19 Unknown Rx predniSONE [Deltasone] 40 mg PO QDAY 5 Days #10 tab 03/26/19 Unknown Rx Blood-Glucose Meter [Glucocard 1 each PRN #1 each 04/05/19 Unknown Rx Shine Connex Meter] Insulin Detemir [Levemir Flextouch] 40 unit SQ QHS #4 insuln.pen 04/05/19 Unknown Rx Insulin Regular, Human [HumuLIN R] 10 unit SQ AC #200 units 04/05/19 Unknown Rx Lancets [Glucocom Lancets] 1 each MC TID #1 pack 04/05/19 Unknown Rx oxyCODONE /ACETAMINOPHEN [Percocet 1 tab PO Q6HR PRN #10 tablet 04/23/19 Unknown Rx 5/325] Dicyclomine [Bentyl] 20 mg PO QID #10 tablet 04/29/19 Unknown Rx HYDROcodone/APAP 5-325 [[place] 1 each PO Q6HR PRN #10 tablet 04/29/19 Unknown Rx 5/325] Ondansetron [Zofran Odt] 4 mg PO Q8HR #10 tab.rapdis 04/29/19 Unknown Rx Acetaminophen/Codeine [Tylenol 1 tab PO Q6H PRN #12 tab 05/15/19 Unknown Rx /Codeine # 3 tab] Ondansetron [Zofran Odt] 4 mg PO Q8HR PRN #12 tab.rapdis 05/15/19 Unknown Rx Ondansetron [Zofran Odt] 4 mg PO Q8HR PRN #10 tab.rapdis 06/29/19 Unknown Rx Naproxen 500 mg PO Q12H PRN #12 tablet 07/18/19 Unknown Rx Clopidogrel [Plavix] 75 mg PO QDAY #30 tablet 07/20/19 Unknown Rx Hydroxychloroquine [Plaquenil] 200 mg PO QDAY #20 tablet 07/20/19 Unknown Rx Dicyclomine [Bentyl] 10 mg PO QID PRN #30 capsule 08/23/19 Unknown Rx Naproxen 500 mg PO BID PRN #30 tablet 08/23/19 Unknown Rx Ondansetron [Zofran Odt] 4 mg PO Q8HR PRN #12 tab.rapdis 08/23/19 Unknown Rx ED Physical Exam - General Limitations: No Limitations General appearance: alert, in no apparent distress - Head Head exam: Present: atraumatic, normocephalic - Eye Eye exam: Present: normal appearance, PERRL, EOMI - ENT ENT exam: Present: mucous membranes moist - Neck Neck exam: Present: normal inspection - Respiratory Respiratory exam: Present: normal lung sounds bilaterally. Absent: respiratory distress - Cardiovascular Cardiovascular Exam: Present: regular rate, normal rhythm. Absent: systolic murmur, diastolic murmur, rubs, gallop - GI/Abdominal GI/Abdominal exam: Present: soft, tenderness, normal bowel sounds - Extremities Exam Extremities exam: Present: normal inspection - Back Exam Back exam: Present: normal inspection - Neurological Exam Neurological exam: Present: alert, oriented X3 - Psychiatric Psychiatric exam: Present: normal affect, normal mood - Skin Skin exam: Present: warm, dry, intact, normal color. Absent: rash ED Course Vital Signs 08/26/19 00:03 Temperature 98.9 F Pulse Rate 79 Respiratory 18 Rate Blood Pressure 143/84 O2 Sat by Pulse 100 Oximetry PAUL score - Paul Score Age > 65: (0) No Aspirin use within the Past 7 Days: (0) No 3 or more CAD Risk Factors: (0) No 2 or more Angina events in past 24 hrs: (0) No Known CAD with more than 50% Stenosis: (0) No Elevated Cardiac Markers: (0) No ST Deviation Greater than 0.5mm: (0) No PAUL Score: 0 ED Medical Decision Making - Lab Data Result diagrams: 08/26/19 00:30 08/26/19 00:30 - EKG Data EKG shows normal: sinus rhythm Rate: normal - Radiology Data Radiology results: report reviewed Patient Name: CARLOS FLORES Gender: Female Date of : 1980 Referring Provider: ZACHARY ED Organization: [facility] Accession Number: [id number] Requested Date: August 26, 2019 00:13 Report Status: Final Requested Procedure: 1 Procedure Description: XR chest 1V ap Modality: XR Findings Reporting MD: Anabella Espinosa Dictation Time: August 26, 2019 01:23 Inspector Toys: Not available Green Prize Packer Date: CHEST 1 VIEW, 08/26/2019 2:08 AM CLINICAL INFORMATION/INDICATION: Shortness of breath COMPARISON: Chest radiograph, 07/28/2019 FINDINGS: SUPPORT DEVICES: None. HEART: The cardiac silhouette is normal in size. LUNGS/PLEURA: The lungs are well expanded and appear clear of focal airspace disease or significant pleural effusion. ADDITIONAL FINDINGS: No additional acute findings. IMPRESSION: 1. No evidence of acute cardiopulmonary process. Signer Name: Anabella Espinosa MD Signed: 08/26/2019 1:23 AM Workstation Name: [id number] - Medical Decision Making This patient presents with chest pain that is very unlikely angina or acute coronary syndrome. The emergency department evaluation has not identified any cause for suspicion that this chest pain has a cardiac etiology. Based on their history, EKG (which showed no evidence of ischemia or infarction) and imaging, in addition to the patient's physical exam, I see no evidence at this time for a malignant etiology for the patient's chest pain. There is no acute evidence for pulmonary embolus, acute myocardial infarction, pneumothorax, Boerhaeve syndrome, cardiac tamponade, thoracic artery dissection, or any other emergent cardiac, pulmonary or aortic pathology. Given the low pre-test probability for cardiac etiology of chest pain and the absence of any sign of ischemia or infarction, discharge for outpatient follow-up and further evaluation is reasonable. I have explained to the patient that even though a cardiac problem is very unlikely, follow-up and further testing is required to reduce further the already small uncertainty that exists. Other life-threatening diagnoses have been considered. The patient understands the need to return immediately if their symptoms worsen or they develop any new symptoms, and not to engage in any significant exertional activity until follow-up is obtained. Critical care attestation.: If time is entered above; I have spent that time in minutes in the direct care of this critically ill patient, excluding procedure time. ED Disposition Clinical Impression: Chest pain in adult, Hyperglycemia without ketosis Disposition: DC-01 TO HOME OR SELFCARE Is pt being admited?: No Does the pt Need Aspirin: No Condition: Stable Instructions: Chest Pain (ED), Diabetic Hyperglycemia (ED) Referrals: TATI HARMON MD [Staff Physician] - 3-5 Days [facility] [Provider Group] - 3-5 Days MAXI KAYE MD [Staff Physician] - 3-5 Days [facility] [Provider Group] - 3-5 Days BLANCA MEDINA MD [Referring] - 3-5 Days ILENE ROSARIO MD [Staff Physician] - 3-5 Days
[2019-08-26] MEDS ORDERED: HYDROcodone/ACETAMINOPHEN 5-325 MG TAB ONE (04:04)
[2019-08-26] MEDS ORDERED: HYDROcodone/ACETAMINOPHEN 5-325 MG TAB PO ONE (04:04)
[2019-08-26 06:42] VITALS: BP 143/84
== END 2019-08-26 06:42 | disposition home or self-care (01) ==
LOC: ED 23:12
DX: R07.89 Other chest pain (principal); E11.10 Type 2 diabetes mellitus with ketoacidosis without coma; I11.0 Hypertensive heart disease with heart failure; I50.9 Heart failure, unspecified; F31.9 Bipolar disorder, unspecified; F17.200 Nicotine dependence, unspecified, uncomplicated; F12.10 Cannabis abuse, uncomplicated; Z98.890 Other specified postprocedural states; Z79.1 Long term (current) use of non-steroidal anti-inflammatories (NSAID); Z79.2 Long term (current) use of antibiotics; Z79.4 Long term (current) use of insulin; Z79.899 Other long term (current) drug therapy; Z91.018 Allergy to other foods; Z88.8 Allergy status to other drugs, medicaments and biological substances
CPT/HCPCS: 36415; 71045; 80048; 82962; 83690; 84484; 84703; 85025; 93005

== ENCOUNTER 2019-09-08 00:08 | Emergency (ER) | payer MEDICARE ==
[2019-09-08 01:33] LABS: Bilirubin,Urine NEG (Negative); Blood,Urine NEG (Negative); Color,Urine Yellow (Yellow); Mucus,Urine FEW /HPF; Protein,Urine <15 mg/dL mg/dL (Negative); Urobilinogen,Urine < 2.0 mg/dL (<2.0)
[2019-09-08 03:04] LABS: Basophils # (Auto) 0.1 K/mm3 (0.0-0.1); Basophils % (Auto) 1.1 % (0.0-1.8); Eosinophils # (Auto) 0.1 K/mm3 (0.0-0.4); Hematocrit 33.8 % (30.3-42.9); Hemoglobin 10.6 gm/dl (10.1-14.3); Lymphocytes # (Auto) 2.5 K/mm3 (1.2-5.4); Lymphocytes % (Auto) 31.9 % (13.4-35.0); Mean Corpuscular HGB Conc 31 % (30-34); Mean Corpuscular Volume 73 fl (79-97); Monocytes # (Auto) 0.4 K/mm3 (0.0-0.8); Monocytes % (Auto) 5.5 % (0.0-7.3); Platelet Count 278 K/mm3 (140-440); Red Blood Count 4.63 M/mm3 (3.65-5.03); Red Cell Distribution Width 16.5 % (13.2-15.2)
[2019-09-08] MEDS ORDERED: ONDANSETRON 4 MG/2 ML INJ IM ONE (06:44)
[2019-09-08] MEDS ORDERED: fentaNYL 100 MCG/2 ML INJ IM ONE (06:44)
--- NOTE | 2019-09-08 06:49 | Emergency Department Report ---
HPI - General Chief Complaint: Abdominal Pain PUI?: No Time Seen by Provider: 09/08/19 06:34 - HPI HPI: Room 17 Patient is a 39-year-old female present with a chief complaint of vaginal bleeding and pelvic pain. The patient states her LMP was 07/04/2019 and she is normally pretty regular despite polycystic ovarian syndrome. The patient states last night she developed heavy vaginal bleeding and right pelvic pain. The patient states she is gone through approximately 10 pads since last night. Patient gives her pain a score of 9/10 ED Past Medical Hx - Past Medical History Previous Medical History?: Yes Hx Hypertension: Yes Hx Heart Attack/AMI: Yes (05/22, cardiac stent x1) Hx Diabetes: Yes (type 2) 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 iron deficient anemia - Surgical History Past Surgical History?: Yes Hx Coronary Stent: Yes (x1) Hx Breast Surgery: Yes (breast reduction 05/2004) Additional Surgical History: Breast reduction bilateral,excisional surg. for abscess - Family History Family history: no significant - Social History Smoking Status: Current Every Day Smoker (1 pack/day) Substance Use Type: Marijuana - Medications Home Medications: Home Medications Medication Instructions Recorded Confirmed Last Taken Type Aspirin [Aspirin BABY CHEW TAB] 81 mg PO QDAY #30 tab.chew 06/12/17 11/26/17 11/20/17 10:00 Rx lisinopriL [Lisinopril] 20 mg PO DAILY 10/08/17 11/26/17 11/20/17 10:00 History Zolpidem [Ambien] 10 mg PO QHS 11/26/17 11/26/17 Unknown History Detemir (Nf) [Levemir (Nf)] 60 units SUB-Q HS 11/27/17 11/26/17 Unknown History Lispro Insulin [HumaLOG] 0 unit SUB-Q ACHS units 11/28/17 Unknown Rx Dicyclomine [Bentyl] 10 mg PO BID #20 capsule 09/01/18 Unknown Rx Fluconazole (Nf) [Diflucan TAB] 150 mg PO ONCE #2 tablet 09/20/18 Unknown Rx metroNIDAZOLE [Flagyl] 500 mg PO Q12HR #20 tab 09/20/18 Unknown Rx Clindamycin [Clindamycin CAP] 300 mg PO Q6H #21 capsule 11/06/18 Unknown Rx Ibuprofen [Motrin 800 MG tab] 800 mg PO Q8HR PRN #20 tablet 11/06/18 Unknown Rx Acetamin/Codeine 120-12Mg/5 ml 5 ml PO TID #50 ml 11/25/18 Unknown Rx [Tylenol/Codeine] Famotidine [Pepcid] 20 mg PO BID #20 tablet 11/25/18 Unknown Rx Acetaminophen [Acetaminophen TAB] 1,000 mg PO Q6HR PRN #60 tablet 03/26/19 Unknown Rx Ibuprofen [Motrin 800 MG tab] 800 mg PO Q8HR PRN #30 tablet 03/26/19 Unknown Rx predniSONE [Deltasone] 40 mg PO QDAY 5 Days #10 tab 03/26/19 Unknown Rx Blood-Glucose Meter [Glucocard 1 each PRN #1 each 04/05/19 Unknown Rx Shine Connex Meter] Insulin Detemir [Levemir Flextouch] 40 unit SQ QHS #4 insuln.pen 04/05/19 Unknown Rx Insulin Regular, Human [HumuLIN R] 10 unit SQ AC #200 units 04/05/19 Unknown Rx Lancets [Glucocom Lancets] 1 each TID #1 pack 04/05/19 Unknown Rx oxyCODONE /ACETAMINOPHEN [Percocet 1 tab PO Q6HR PRN #10 tablet 04/23/19 Unknown Rx 5/325] Dicyclomine [Bentyl] 20 mg PO QID #10 tablet 04/29/19 Unknown Rx HYDROcodone/APAP 5-325 [[place] 1 each PO Q6HR PRN #10 tablet 04/29/19 Unknown Rx 5/325] Ondansetron [Zofran Odt] 4 mg PO Q8HR #10 tab.rapdis 04/29/19 Unknown Rx Acetaminophen/Codeine [Tylenol 1 tab PO Q6H PRN #12 tab 05/15/19 Unknown Rx /Codeine # 3 tab] Ondansetron [Zofran Odt] 4 mg PO Q8HR PRN #12 tab.rapdis 05/15/19 Unknown Rx Ondansetron [Zofran Odt] 4 mg PO Q8HR PRN #10 tab.rapdis 06/29/19 Unknown Rx Naproxen 500 mg PO Q12H PRN #12 tablet 07/18/19 Unknown Rx Clopidogrel [Plavix] 75 mg PO QDAY #30 tablet 07/20/19 Unknown Rx Hydroxychloroquine [Plaquenil] 200 mg PO QDAY #20 tablet 07/20/19 Unknown Rx Dicyclomine [Bentyl] 10 mg PO QID PRN #30 capsule 08/23/19 Unknown Rx Naproxen 500 mg PO BID PRN #30 tablet 08/23/19 Unknown Rx Ondansetron [Zofran Odt] 4 mg PO Q8HR PRN #12 tab.rapdis 08/23/19 Unknown Rx HYDROcodone/APAP 5-325 [[place] 1 each PO Q6HR PRN #5 tablet 09/08/19 Unknown Rx 5/325] Ibuprofen [Motrin 800 MG tab] 800 mg PO Q8HR PRN #20 tablet 09/08/19 Unknown Rx ED Review of Systems ROS: Stated complaint: VAGINAL BLEEDING SEVERE CRAMPING Other details as noted in HPI Constitutional: no symptoms reported Respiratory: no symptoms reported Endocrine: no symptoms reported Genitourinary: abnormal menses, other (Pelvic pain) Physical Exam - Physical Exam Vital Signs: Vital Signs 09/08/19 00:11 Temperature 98.6 F Pulse Rate 63 Respiratory 18 Rate Blood Pressure 168/122 O2 Sat by Pulse 95 Oximetry Physical Exam: GENERAL: The patient is well-developed well-nourished female lying on stretcher not appearing to be in acute distress. [] HEENT: Normocephalic. Atraumatic. Extraocular motions are intact. Patient has moist mucous membranes. NECK: Supple. Trachea midline CHEST/LUNGS: Clear to auscultation. There is no respiratory distress noted. HEART/CARDIOVASCULAR: Regular. There is no tachycardia. There is no gallop rub or murmur. ABDOMEN: Abdomen is soft, nontender. Patient has normal bowel sounds. There is no abdominal distention. SKIN: There is no rash. There is no edema. There is no diaphoresis. NEURO: The patient is awake, alert, and oriented. The patient is cooperative. The patient has normal speech MUSCULOSKELETAL: There is no evidence of acute injury. ED Course Vital Signs 09/08/19 00:11 Temperature 98.6 F Pulse Rate 63 Respiratory 18 Rate Blood Pressure 168/122 O2 Sat by Pulse 95 Oximetry ED Medical Decision Making - Lab Data Result diagrams: 09/08/19 02:23 Laboratory Tests 09/08/19 09/08/19 09/08/19 02:23 02:23 Unknown WBC 7.7 RBC 4.63 Hgb 10.6 Hct 33.8 MCV 73 L MCH 23 L MCHC 31 RDW 16.5 H Plt Count 278 Lymph % (Auto) 31.9 [place] % (Auto) 5.5 Eos % (Auto) 1.0 Baso % (Auto) 1.1 Lymph # 2.5 [place] # 0.4 Eos # 0.1 Baso # 0.1 Seg Neutrophils % 60.5 Seg Neutrophils # 4.7 HCG, Qual Negative Urine Color Yellow Urine Turbidity Clear Urine pH 6.0 Ur Specific [place] 1.015 Urine Protein <15 mg/dl Urine Glucose (UA) Neg Urine Ketones Neg Urine Blood Neg Urine Nitrite Neg Urine Bilirubin Neg Urine Urobilinogen < 2.0 Ur Leukocyte Esterase Neg Urine WBC (Auto) 0.0 Urine RBC (Auto) 3.0 U Epithel Cells (Auto) < 1.0 Urine Mucus Few - Radiology Data Radiology results: report reviewed (Pelvic ultrasound) Pelvic ultrasound (read by radiologist)-no abnormalities. Normal flow to both ovaries. *This report did not transmit via [employer] but was reviewed directly from the ultrasound [facility] computer screen - Differential Diagnosis Menorrhagia, metrorrhagia, menstrual cramping Critical care attestation.: If time is entered above; I have spent that time in minutes in the direct care of this critically ill patient, excluding procedure time. ED Disposition Clinical Impression: Metrorrhagia, Pelvic cramping Disposition: TO HOME OR SELFCARE Is pt being admited?: No Does the pt Need Aspirin: No Condition: Stable Instructions: Abdominal Pain (ED) Additional Instructions: Return to the emergency department should you develop worsening symptoms, inability to tolerate food or liquids, high fever or any other concerns Prescriptions: Ibuprofen [Motrin 800 MG tab] 800 mg PO Q8HR PRN #20 tablet PRN Reason: Pain, Moderate (4-6) HYDROcodone/APAP 5-325 [[place] 5/325] 1 each PO Q6HR PRN #5 tablet PRN Reason: Pain Referrals: SOPHIA TRIVEDI MD [Primary Care Provider] - 3-5 Days Your, [employer] [Other] - 3-5 Days Time of Disposition: 10:36
[2019-09-08 10:56] VITALS: BP 139/78
== END 2019-09-08 11:15 | disposition home or self-care (01) ==
LOC: ED 00:08
DX: N92.1 Excessive and frequent menstruation with irregular cycle (principal); R10.2 Pelvic and perineal pain; I25.2 Old myocardial infarction; I10 Essential (primary) hypertension; E11.9 Type 2 diabetes mellitus without complications; F17.200 Nicotine dependence, unspecified, uncomplicated; F12.10 Cannabis abuse, uncomplicated; Z98.890 Other specified postprocedural states; Z79.4 Long term (current) use of insulin; Z79.899 Other long term (current) drug therapy; Z91.012 Allergy to eggs; Z88.8 Allergy status to other drugs, medicaments and biological substances
CPT/HCPCS: 36415; 76830; 81001; 84703; 85025; 93975; 96372; 99284; J2405; J3010

== ENCOUNTER 2019-09-11 09:08 | Emergency (ER) | payer MEDICARE ==
[2019-09-11] MEDS ORDERED: ONDANSETRON 4 MG ODT TAB PO ONE (10:33)
--- NOTE | 2019-09-11 10:39 | Emergency Department Report ---
HPI - General Chief Complaint: Nausea/Vomiting/Diarrhea Time Seen by Provider: 09/11/19 10:05 - HPI HPI: 39-year-old female presents to the emergency department for her third visit in 3 days regarding abdominal pain, nausea, vomiting, and diarrhea. On 09/07 the patient was seen here for some pelvic cramping, as well as these other symptoms, and was diagnosed with metorrhagia, and discharged with some [place] and ibuprofen. The patient says that she was prescribed some Bactrim as well and she took the Bactrim and ibuprofen and began having increased nausea and vomiting, and diarrhea. The patient was then seen last night and diagnosed with gastroenteritis and discharged home with Phenergan and loperamide. The patient mentioned that she was on Bentyl but I do not see any prescription for this. She says that she took the Phenergan and Bentyl and once again began having increased abdominal pain, nausea and vomiting. She has a past medical history that includes els-egypifr-wniklzeyw diabetes, hypertension, anemia, lupus, bipolar disorder and schizoaffective disorder. No recent travel or sick contacts at home. She denies any fever, dysuria, vaginal bleeding or discharge. 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 iron deficient anemia - Surgical History Hx Coronary Stent: Yes (x1) Hx Breast Surgery: Yes (breast reduction 05/2004) Additional Surgical History: Breast reduction bilateral,excisional surg. for abscess - Social History Smoking Status: Current Every Day Smoker Substance Use Type: Marijuana - Medications Home Medications: Home Medications Medication Instructions Recorded Confirmed Last Taken Type Aspirin [Aspirin BABY CHEW TAB] 81 mg PO QDAY #30 tab.chew 06/12/17 09/11/19 11/20/17 10:00 Rx lisinopriL [Lisinopril] 20 mg PO DAILY 10/08/17 09/11/19 11/20/17 10:00 History Zolpidem [Ambien] 10 mg PO QHS 11/26/17 09/11/19 Unknown History Detemir (Nf) [Levemir (Nf)] 60 units SUB-Q HS 11/27/17 09/11/19 1 Day Ago History ~09/10/19 Lispro Insulin [HumaLOG] 0 unit SUB-Q ACHS units 11/28/17 09/11/19 1 Day Ago Rx ~09/10/19 Famotidine [Pepcid] 20 mg PO BID #20 tablet 11/25/18 09/11/19 Unknown Rx Acetaminophen [Acetaminophen TAB] 1,000 mg PO Q6HR PRN #60 tablet 03/26/19 09/11/19 Unknown Rx Blood-Glucose Meter [Glucocard 1 each MC PRN #1 each 04/05/19 09/11/19 Unknown Rx Shine Connex Meter] Insulin Detemir [Levemir Flextouch] 40 unit SQ QHS #4 insuln.pen 04/05/19 09/11/19 1 Day Ago Rx ~09/10/19 Insulin Regular, Human [HumuLIN R] 10 unit SQ AC #200 units 04/05/19 09/11/19 Unknown Rx Lancets [Glucocom Lancets] 1 each TID #1 pack 04/05/19 09/11/19 Unknown Rx Acetaminophen/Codeine [Tylenol 1 tab PO Q6H PRN #12 tab 05/15/19 09/11/19 Unknown Rx /Codeine # 3 tab] Clopidogrel [Plavix] 75 mg PO QDAY #30 tablet 07/20/19 09/11/19 1 Day Ago Rx ~09/10/19 Hydroxychloroquine [Plaquenil] 200 mg PO QDAY #20 tablet 07/20/19 09/11/19 Unknown Rx Dicyclomine [Bentyl] 10 mg PO QID PRN #30 capsule 08/23/19 09/11/19 Unknown Rx Naproxen 500 mg PO BID PRN #30 tablet 08/23/19 09/11/19 Unknown Rx HYDROcodone/APAP 5-325 [[place] 1 each PO Q6HR PRN #5 tablet 09/08/19 09/11/19 Unknown Rx 5/325] Ibuprofen [Motrin 800 MG tab] 800 mg PO Q8HR PRN #20 tablet 09/08/19 09/11/19 Unknown Rx Loperamide [Imodium] 2 tab PO QID 2 Days #16 capsule 09/11/19 09/11/19 Unknown Rx Ondansetron [Zofran Odt] 4 mg PO Q8HR PRN #12 tab.rapdis 09/11/19 Unknown Rx Promethazine [Phenergan] 25 mg PO Q6HR PRN #10 tab 09/11/19 09/11/19 1 Day Ago Rx ~09/10/19 ED Review of Systems ROS: Stated complaint: VOMITING/DIARRHEA Other details as noted in HPI Comment: All other systems reviewed and negative Constitutional: denies: chills, fever Eyes: denies: eye pain, vision change ENT: denies: ear pain, throat pain Respiratory: denies: cough, shortness of breath Cardiovascular: denies: chest pain, palpitations Gastrointestinal: abdominal pain, nausea, vomiting Genitourinary: denies: dysuria, discharge Musculoskeletal: denies: back pain, arthralgia Skin: denies: rash, lesions Neurological: denies: headache, weakness Physical Exam - Physical Exam Vital Signs: Vital Signs 09/11/19 09/11/19 09:23 09:56 Temperature 98.4 F Pulse Rate 88 73 Respiratory 20 18 Rate Blood Pressure 125/90 137/91 [Left] O2 Sat by Pulse 100 100 Oximetry Physical Exam: GENERAL: The patient is well-developed well-nourished. HENT: Normocephalic. Atraumatic. Patient has moist mucous membranes. EYES: Extraocular motions are intact. NECK: Supple. Trachea is midline. CHEST/LUNGS: Clear to auscultation. There is no respiratory distress noted. HEART/CARDIOVASCULAR: Regular. There is no tachycardia. ABDOMEN: Abdomen is soft. There is some upper abdominal tenderness to palpation. No guarding. Patient has normal bowel sounds. There is no abdominal distention. SKIN: Skin is warm and dry. NEURO: The patient is awake, alert, and oriented. The patient is cooperative. The patient has no focal neurologic deficits. Normal speech. MUSCULOSKELETAL: There is no tenderness or deformity. There is no evidence of acute injury. ED Course Vital Signs 09/11/19 09/11/19 09:23 09:56 Temperature 98.4 F Pulse Rate 88 73 Respiratory 20 18 Rate Blood Pressure 125/90 137/91 [Left] O2 Sat by Pulse 100 100 Oximetry ED Medical Decision Making - Lab Data Result diagrams: 09/11/19 11:37 09/11/19 11:37 - Radiology Data Radiology results: report reviewed CT ABDOMEN AND PELVIS WITHOUT CONTRAST HISTORY: Abd pain COMPARISON: 10/14/2018 TECHNIQUE: Axial CT images were obtained through the abdomen and pelvis without IV contrast. Sagittal and coronal reformatted images. All CT scans at this location are performed using CT dose reduction for ALARA by means of automated exposure control. FINDINGS: CT ABDOMEN: Lung Bases: Clear. Liver: No significant abnormality. Biliary: No significant abnormality. Spleen: No significant abnormality. Unenlarged. Pancreas: No significant abnormality. Adrenals: No sign ificant abnormality. Kidneys: There are a few nonobstructing calyceal stones in both kidneys measuring less than 3 mm. No focal renal lesion or hydronephrosis Lymphatics: No lymphadenopathy. Vasculature: No significant abnormality. Bowel/Peritoneum: No significant abnormality. No free air. No free fluid. Normal appendix. CT PELVIS: : The uterus and right ovary are unremarkable. A 1.7 cm left ovarian cyst is identified. Osseous Structures: No significant abnormality. Additional Findings: None IMPRESSION: No acute process. Bilateral nephrolithiasis, nonobstructing. 1.7 cm left ovarian cyst. - Medical Decision Making This patient presents to the emergency department with upper abdominal pain, nausea and vomiting. This is her second visit in 2 days for it. Labs are unremarkable except for an elevated lipase of 88. CT of the abdomen and pelvis does not show any acute process. The elevated lipase is most likely secondary to the patient's previous vomiting. Patient was given antiemetics and IV analgesia here with improvement of her symptoms. There is been no further vomiting since presentation to the emergency department and the patient has been able to pass an oral challenge. She will be discharged home to follow-up with primary care and gastroenterology. She will return to the ER with any worsening of her symptoms or any acute distress. The patient is asking for narcotic pain medication for home. However I checked the [employer] prescription monitoring system and the patient has filled 12 opiate prescriptions from 12 different providers and used 9 different pharmacies over the past 3 months. She has been given a prescription for Zofran ODT. Critical Care Time: No Critical care attestation.: If time is entered above; I have spent that time in minutes in the direct care of this critically ill patient, excluding procedure time. ED Disposition Clinical Impression: Elevated lipase Abdominal pain Qualifiers: Abdominal location: upper abdomen, unspecified Qualified Code(s): R10.10 - Upper abdominal pain, unspecified Nausea & vomiting Qualifiers: Vomiting type: unspecified Vomiting Intractability: non-intractable Qualified Code(s): R11.2 - Nausea with vomiting, unspecified Disposition: DC-01 TO HOME OR SELFCARE Is pt being admited?: No Condition: Stable Instructions: Acute Nausea and Vomiting (ED), Abdominal Pain (ED) Additional Instructions: Please follow-up with a primary care physician in the next few days. I am also giving you a referral for a local car dryer, Dr. Brian Vale, who is part of a larger group called [facility]. You can follow-up with the car dryer regarding your recurrent abdominal pains, and elevated pancreatic enzyme. Return to the emergency department with any worsening of your symptoms or any acute distress. Prescriptions: Ondansetron [Zofran Odt] 4 mg PO Q8HR PRN #12 tab.rapdis PRN Reason: Nausea Referrals: PRIMARY MD FRANCO [Primary Care Provider] - 3-5 Days GUILLERMO ANTHONY MD [Staff Physician] - 3-5 Days [facility] [Provider Group] - 3-5 Days STEPHANIE VALE MD [Staff Physician] - 3-5 Days Time of Disposition: 14:37
[2019-09-11 10:52] LABS: Bilirubin,Urine NEG (Negative); Blood,Urine NEG (Negative); Color,Urine Yellow (Yellow); Mucus,Urine FEW /HPF; Protein,Urine <15 mg/dL mg/dL (Negative); RBC,Urine < 1.0 /HPF (0.0-6.0)
[2019-09-11] MEDS ORDERED: DICYCLOMINE 20 MG TAB PO ONE (12:10)
[2019-09-11 12:38] VITALS: BP 129/62
[2019-09-11 12:38] LABS: Basophils % (Auto) 0.6 % (0.0-1.8); Eosinophils # (Auto) 0.1 K/mm3 (0.0-0.4); Hemoglobin 10.1 gm/dl (10.1-14.3); Lymphocytes # (Auto) 2.2 K/mm3 (1.2-5.4); Lymphocytes % (Auto) 31.6 % (13.4-35.0); Mean Corpuscular HGB Conc 32 % (30-34); Mean Corpuscular Volume 72 fl (79-97); Monocytes # (Auto) 0.3 K/mm3 (0.0-0.8); Monocytes % (Auto) 4.7 % (0.0-7.3); Platelet Count 347 K/mm3 (140-440); Red Blood Count 4.47 M/mm3 (3.65-5.03); Red Cell Distribution Width 16.2 % (13.2-15.2)
[2019-09-11 13:05] LABS: Alanine Aminotransferase 10 units/L (7-56); Albumin 3.9 g/dL (3.9-5); BUN/Creatinine Ratio 7; Blood Urea Nitrogen 5 mg/dL (7-17); Calcium 9.2 mg/dL (8.4-10.2); Hemolysis Index 4
[2019-09-11] MEDS ORDERED: HYDROcodone/ACETAMINOPHEN 5-325 MG TAB PO ONE (14:19)
--- NOTE | 2019-09-11 14:32 | Cat Scan Report ---
CT ABDOMEN AND PELVIS WITHOUT CONTRAST HISTORY: Abd pain COMPARISON: 10/14/2018 TECHNIQUE: Axial CT images were obtained through the abdomen and pelvis without IV contrast. Sagittal and coronal reformatted images. All CT scans at this location are performed using CT dose reduction for ALARA by means of automated exposure control. FINDINGS: CT ABDOMEN: Lung Bases: Clear. Liver: No significant abnormality. Biliary: No significant abnormality. Spleen: No significant abnormality. Unenlarged. Pancreas: No significant abnormality. Adrenals: No significant abnormality. Kidneys: There are a few nonobstructing calyceal stones in both kidneys measuring less than 3 mm. No focal renal lesion or hydronephrosis Lymphatics: No lymphadenopathy. Vasculature: No significant abnormality. Bowel/Peritoneum: No significant abnormality. No free air. No free fluid. Normal appendix. CT PELVIS: : The uterus and right ovary are unremarkable. A 1.7 cm left ovarian cyst is identified. Osseous Structures: No significant abnormality. Additional Findings: None IMPRESSION: No acute process. Bilateral nephrolithiasis, nonobstructing. 1.7 cm left ovarian cyst. Signer Name: Kong Kunz Jr, MD Signed: 09/11/2019 2:28 PM Workstation Name: [id number]
== END 2019-09-11 14:53 | disposition home or self-care (01) ==
LOC: ED 09:08
DX: R10.2 Pelvic and perineal pain (principal); R11.2 Nausea with vomiting, unspecified; R19.7 Diarrhea, unspecified; R74.8 Abnormal levels of other serum enzymes; I25.2 Old myocardial infarction; I10 Essential (primary) hypertension; E11.9 Type 2 diabetes mellitus without complications; F25.0 Schizoaffective disorder, bipolar type; F17.200 Nicotine dependence, unspecified, uncomplicated; F12.10 Cannabis abuse, uncomplicated; Z98.890 Other specified postprocedural states; Z79.1 Long term (current) use of non-steroidal anti-inflammatories (NSAID); Z79.4 Long term (current) use of insulin; Z79.899 Other long term (current) drug therapy; Z91.012 Allergy to eggs; Z88.8 Allergy status to other drugs, medicaments and biological substances
CPT/HCPCS: 36415; 74176; 80053; 81001; 83690; 84703; 85025; Q0162

== ENCOUNTER 2019-09-14 05:37 | Emergency (ER) | payer MEDICARE ==
[2019-09-14 06:03] VITALS: BP 131/89
--- NOTE | 2019-09-14 06:26 | Emergency Department Report ---
Chief Complaint: Hyperglycemia Stated Complaint: BLOOD SUGARS HIGH,VOMITING Time Seen by Provider: 09/14/19 06:08 - HPI History of Present Illness: This is a 39-year-old female with history of insulin-dependent diabetes SLE who presents with elevated blood sugar. She denies current vomiting. She denies abdominal pain. Medical screening exam performed and completed. Patient appears well. She feels that her blood sugar is elevated due to current water. I have provided sliding scale insulin instructions. She is discharged home. I evaluated this patient earlier this week for similar concerns. Patient appears well. Medical screening exam performed and completed. - Exam Vital Signs: Vital Signs 09/14/19 06:00 Temperature 97.8 F Pulse Rate 82 Respiratory 20 Rate Blood Pressure 131/89 O2 Sat by Pulse 99 Oximetry MSE screening note: Focused history and physical exam performed. Due to findings the following was ordered: ED Disposition for MSE Clinical Impression: Encounter for medical screening examination Disposition: DC-01 TO HOME OR SELFCARE Is pt being admited?: No Does the pt Need Aspirin: No Condition: Stable Referrals: GUILLERMO ANTHONY MD [Staff Physician] - 3-5 Days
[2019-09-14 06:33] LABS: Bilirubin,Urine NEG (Negative); Blood,Urine NEG (Negative); Color,Urine Colorless (Yellow); Protein,Urine <15 mg/dL mg/dL (Negative); Urobilinogen,Urine < 2.0 mg/dL (<2.0)
== END 2019-09-14 06:44 | disposition home or self-care (01) ==
LOC: ED 05:37
DX: R73.9 Hyperglycemia, unspecified (principal); Z00.00 Encounter for general adult medical examination without abnormal findings; Z88.6 Allergy status to analgesic agent; Z88.1 Allergy status to other antibiotic agents; Z91.012 Allergy to eggs
CPT/HCPCS: 81001; 99283

== ENCOUNTER 2019-09-16 23:29 | Emergency (ER) | payer MEDICARE | END 2019-09-17 01:00 | disposition left against medical advice (07) | LOC: ED 23:29 | DX: N89.8 Other specified noninflammatory disorders of vagina (principal); R30.9 Painful micturition, unspecified; Z53.21 Procedure and treatment not carried out due to patient leaving prior to being seen by health care provider ==

== ENCOUNTER 2019-10-06 13:02 | Emergency (ER) | payer MEDICARE, OTHER ==
--- NOTE | 2019-10-06 16:42 | Emergency Department Report ---
ED General Adult HPI - General Chief complaint: Medical Clearance Stated complaint: MED REFILL Time Seen by Provider: 10/06/19 16:27 Source: patient Mode of arrival: Ambulatory Limitations: No Limitations - History of Present Illness Initial comments: 39-year-old -[place] female with extensive medical history including history of diabetes presents for refills of her insulin and a One Touch glucose meter today. Patient states she has been out of her insulin for 2 weeks and is unable to follow-up with her primary care provider this week and due to the holiday. She denies any chest pain, shortness of breath, dysuria/hematuria/urinary frequency, dizziness, or other concerns. Patient states she is unable to check her glucose due to being prescribed a meter that is not covered by her insurance and that she is needing the One Touch ultra 2 m. Patient is well-known to the ED. - Related Data Home Medications Medication Instructions Recorded Confirmed Last Taken lisinopriL [Lisinopril] 20 mg PO DAILY 10/08/17 09/11/19 11/20/17 10:00 Zolpidem [Ambien] 10 mg PO QHS 11/26/17 09/11/19 Unknown Detemir (Nf) [Levemir (Nf)] 60 units SUB-Q HS 11/27/17 09/11/19 1 Day Ago ~09/10/19 Previous Rx's Medication Instructions Recorded Last Taken Type Aspirin [Aspirin BABY CHEW TAB] 81 mg PO QDAY #30 tab.chew 06/12/17 11/20/17 10:00 Rx Lispro Insulin [HumaLOG] 0 unit SUB-Q ACHS units 11/28/17 1 Day Ago Rx ~09/10/19 Famotidine [Pepcid] 20 mg PO BID #20 tablet 11/25/18 Unknown Rx Acetaminophen [Acetaminophen TAB] 1,000 mg PO Q6HR PRN #60 tablet 03/26/19 Unknown Rx Blood-Glucose Meter [Glucocard 1 each MC PRN #1 each 04/05/19 Unknown Rx Shine Connex Meter] Insulin Detemir [Levemir Flextouch] 40 unit SQ QHS #4 insuln.pen 04/05/19 1 Day Ago Rx ~09/10/19 Lancets [Glucocom Lancets] 1 each MC TID #1 pack 04/05/19 Unknown Rx Acetaminophen/Codeine [Tylenol 1 tab PO Q6H PRN #12 tab 05/15/19 Unknown Rx /Codeine # 3 tab] Clopidogrel [Plavix] 75 mg PO QDAY #30 tablet 07/20/19 1 Day Ago Rx ~09/10/19 Hydroxychloroquine [Plaquenil] 200 mg PO QDAY #20 tablet 07/20/19 Unknown Rx Dicyclomine [Bentyl] 10 mg PO QID PRN #30 capsule 08/23/19 Unknown Rx Naproxen 500 mg PO BID PRN #30 tablet 08/23/19 Unknown Rx HYDROcodone/APAP 5-325 [[place] 1 each PO Q6HR PRN #5 tablet 09/08/19 Unknown Rx 5/325] Ibuprofen [Motrin 800 MG tab] 800 mg PO Q8HR PRN #20 tablet 09/08/19 Unknown Rx Loperamide [Imodium] 2 tab PO QID 2 Days #16 capsule 09/11/19 Unknown Rx Ondansetron [Zofran Odt] 4 mg PO Q8HR PRN #12 tab.rapdis 09/11/19 Unknown Rx Promethazine [Phenergan] 25 mg PO Q6HR PRN #10 tab 09/11/19 1 Day Ago Rx ~09/10/19 Acetaminophen/Codeine [Tylenol 1 tab PO Q6H PRN #12 tab 09/13/19 Unknown Rx /Codeine # 3 tab] Clindamycin [Clindamycin CAP] 300 mg PO Q6HR #80 capsule 09/13/19 Unknown Rx Doxycycline Hyclate 100 mg PO Q12H #28 tablet. 09/13/19 Unknown Rx Famotidine [Pepcid] 20 mg PO BID #60 tablet 09/13/19 Unknown Rx Promethazine [Phenergan] 25 mg PO Q6HR PRN #30 tab 09/13/19 Unknown Rx Promethazine [Phenergan] 25 mg [place] Q6HR PRN #30 supp.rect 09/13/19 Unknown Rx Acetaminophen [Acetaminophen TAB] 1,000 mg PO Q6HR PRN #30 tablet 09/22/19 Unknown Rx Blood Sugar Diagnostic [One Touch 1 each MC TID #100 strip 10/06/19 Unknown Rx Ultra Test Strips] Blood-Glucose Meter [Onetouch 1 each MC TID 30 Days #1 kit 10/06/19 Unknown Rx Ultra2] Insulin Glargine [Lantus VIAL] 50 unit SUB-Q QHS #1 vial 10/06/19 Unknown Rx Insulin Regular, Human [HumuLIN R] 10 unit SQ AC #200 units 10/06/19 Unknown Rx Allergies Allergy/AdvReac Type Severity Reaction Status Date / Time egg Allergy Hives Verified 09/13/19 01:43 tramadol HCl [From Ultram] Allergy Hives Verified 09/13/19 01:43 vancomycin Allergy Hives Verified 09/13/19 01:43 NSAIDS (Non-Steroidal AdvReac Vomiting Verified 09/13/19 01:43 Anti-Inflamma ED Review of Systems ROS: Stated complaint: MED REFILL Other details as noted in HPI Constitutional: denies: chills, diaphoresis, fever, malaise, weakness Eyes: denies: eye pain, vision change Respiratory: denies: cough, shortness of breath Cardiovascular: denies: chest pain Gastrointestinal: denies: abdominal pain, nausea, vomiting Genitourinary: denies: urgency, dysuria, frequency, hematuria Skin: denies: rash, lesions ED Past Medical Hx - Past Medical History Hx Hypertension: Yes Hx Heart Attack/AMI: Yes (05/22, cardiac stent x1) Hx Diabetes: Yes (type 2) 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 iron deficient anemia - Surgical History Hx Coronary Stent: Yes (x1) Hx Breast Surgery: Yes (breast reduction 05/2004) Additional Surgical History: Breast reduction bilateral,excisional surg. for abscess - Social History Smoking Status: Current Every Day Smoker Substance Use Type: None - Medications Home Medications: Home Medications Medication Instructions Recorded Confirmed Last Taken Type Aspirin [Aspirin BABY CHEW TAB] 81 mg PO QDAY #30 tab.chew 06/12/17 09/11/19 11/20/17 10:00 Rx lisinopriL [Lisinopril] 20 mg PO DAILY 10/08/17 09/11/19 11/20/17 10:00 History Zolpidem [Ambien] 10 mg PO QHS 11/26/17 09/11/19 Unknown History Detemir (Nf) [Levemir (Nf)] 60 units SUB-Q HS 11/27/17 09/11/19 1 Day Ago History ~09/10/19 Lispro Insulin [HumaLOG] 0 unit SUB-Q ACHS units 11/28/17 09/11/19 1 Day Ago Rx ~09/10/19 Famotidine [Pepcid] 20 mg PO BID #20 tablet 11/25/18 09/11/19 Unknown Rx Acetaminophen [Acetaminophen TAB] 1,000 mg PO Q6HR PRN #60 tablet 03/26/19 09/11/19 Unknown Rx Blood-Glucose Meter [Glucocard 1 each PRN #1 each 04/05/19 09/11/19 Unknown Rx Shine Connex Meter] Insulin Detemir [Levemir Flextouch] 40 unit SQ QHS #4 insuln.pen 04/05/19 09/11/19 1 Day Ago Rx ~09/10/19 Lancets [Glucocom Lancets] 1 each TID #1 pack 04/05/19 09/11/19 Unknown Rx Acetaminophen/Codeine [Tylenol 1 tab PO Q6H PRN #12 tab 05/15/19 09/11/19 Unknown Rx /Codeine # 3 tab] Clopidogrel [Plavix] 75 mg PO QDAY #30 tablet 07/20/19 09/11/19 1 Day Ago Rx ~09/10/19 Hydroxychloroquine [Plaquenil] 200 mg PO QDAY #20 tablet 07/20/19 09/11/19 Unknown Rx Dicyclomine [Bentyl] 10 mg PO QID PRN #30 capsule 08/23/19 09/11/19 Unknown Rx Naproxen 500 mg PO BID PRN #30 tablet 08/23/19 09/11/19 Unknown Rx HYDROcodone/APAP 5-325 [[place] 1 each PO Q6HR PRN #5 tablet 09/08/19 09/11/19 Unknown Rx 5/325] Ibuprofen [Motrin 800 MG tab] 800 mg PO Q8HR PRN #20 tablet 09/08/19 09/11/19 Unknown Rx Loperamide [Imodium] 2 tab PO QID 2 Days #16 capsule 09/11/19 09/11/19 Unknown Rx Ondansetron [Zofran Odt] 4 mg PO Q8HR PRN #12 tab.rapdis 09/11/19 Unknown Rx Promethazine [Phenergan] 25 mg PO Q6HR PRN #10 tab 09/11/19 09/11/19 1 Day Ago Rx ~09/10/19 Acetaminophen/Codeine [Tylenol 1 tab PO Q6H PRN #12 tab 09/13/19 Unknown Rx /Codeine # 3 tab] Clindamycin [Clindamycin CAP] 300 mg PO Q6HR #80 capsule 09/13/19 Unknown Rx Doxycycline Hyclate 100 mg PO Q12H #28 tablet.dr 09/13/19 Unknown Rx Famotidine [Pepcid] 20 mg PO BID #60 tablet 09/13/19 Unknown Rx Promethazine [Phenergan] 25 mg PO Q6HR PRN #30 tab 09/13/19 Unknown Rx Promethazine [Phenergan] 25 mg [place] Q6HR PRN #30 supp.rect 09/13/19 Unknown Rx Acetaminophen [Acetaminophen TAB] 1,000 mg PO Q6HR PRN #30 tablet 09/22/19 Unknown Rx Blood Sugar Diagnostic [One Touch 1 each MC TID #100 strip 10/06/19 Unknown Rx Ultra Test Strips] Blood-Glucose Meter [Onetouch 1 each MC TID 30 Days #1 kit 10/06/19 Unknown Rx Ultra2] Insulin Glargine [Lantus VIAL] 50 unit SUB-Q QHS #1 vial 10/06/19 Unknown Rx Insulin Regular, Human [HumuLIN R] 10 unit SQ AC #200 units 10/06/19 Unknown Rx ED Physical Exam - General Limitations: No Limitations General appearance: alert, in no apparent distress - Head Head exam: Present: atraumatic, normocephalic - Eye Eye exam: Present: normal appearance - Respiratory Respiratory exam: Present: normal lung sounds bilaterally. Absent: respiratory distress - Cardiovascular Cardiovascular Exam: Present: regular rate, normal rhythm. Absent: systolic murmur, diastolic murmur, rubs, gallop ED Course Vital Signs 10/06/19 17:02 Temperature 97.6 F Pulse Rate 90 Respiratory 15 Rate Blood Pressure 132/79 [Left] O2 Sat by Pulse 99 Oximetry ED Medical Decision Making - Medical Decision Making Patient here for refills of her insulin and glucose meter. Patient states her doctor's office is closed for the holiday. She states she has been out of her insulin for 2 weeks, however denies any current symptoms. Given patient's inability to receive refills from her primary care provider and history of admissions to this hospital for diabetic ketoacidosis, will refill medications and prescribe glucose meter. She is well-appearing at this time and denies any concerns. Vitals are stable and she is stable for discharge home. Patient instructed to follow-up with her primary care provider within the next 2 to 4 days. Critical care attestation.: If time is entered above; I have spent that time in minutes in the direct care of this critically ill patient, excluding procedure time. ED Disposition Clinical Impression: Medication refill, Noncompliance with diabetes treatment Disposition: DC-01 TO HOME OR SELFCARE Is pt being admited?: No Condition: Stable Prescriptions: Insulin Glargine [Lantus VIAL] 50 unit SUB-Q QHS #1 vial Insulin Regular, Human [HumuLIN R] 10 unit SQ AC #200 units Blood Sugar Diagnostic [One Touch Ultra Test Strips] 1 each MC TID #100 strip Blood-Glucose Meter [Onetouch Ultra2] 1 each MC TID 30 Days #1 kit Referrals: PRIMARY CARE, [Primary Care Provider] - 2-3 Days
[2019-10-06 17:03] VITALS: BP 132/79
== END 2019-10-06 17:04 | disposition home or self-care (01) ==
LOC: ED 13:02
DX: E11.9 Type 2 diabetes mellitus without complications (principal); Z91.19 Patient's noncompliance with other medical treatment and regimen; Z76.0 Encounter for issue of repeat prescription; I10 Essential (primary) hypertension; I25.2 Old myocardial infarction; F31.9 Bipolar disorder, unspecified; Z98.890 Other specified postprocedural states; Z79.4 Long term (current) use of insulin; Z79.82 Long term (current) use of aspirin; Z88.8 Allergy status to other drugs, medicaments and biological substances; Z79.899 Other long term (current) drug therapy; Z91.012 Allergy to eggs
CPT/HCPCS: 99282

== ENCOUNTER 2019-10-23 23:04 | Emergency (ER) | payer MEDICARE ==
[2019-10-24 02:57] LABS: Hemoglobin 9.4 gm/dl (10.1-14.3); Mean Corpuscular HGB Conc 31 % (30-34); Mean Corpuscular Volume 72 fl (79-97); Platelet Count 367 K/mm3 (140-440); Red Blood Count 4.18 M/mm3 (3.65-5.03)
[2019-10-24 03:24] LABS: Alanine Aminotransferase 36 units/L (7-56); Albumin 3.7 g/dL (3.9-5); BUN/Creatinine Ratio 16; Blood Urea Nitrogen 14 mg/dL (7-17); Calcium 8.5 mg/dL (8.4-10.2); Hemolysis Index 24
[2019-10-24 05:08] VITALS: BP 110/77
[2019-10-24 05:59] LABS: Bilirubin,Urine NEG (Negative); Blood,Urine MOD (Negative); Color,Urine Straw (Yellow); Protein,Urine <15 mg/dL mg/dL (Negative); Urobilinogen,Urine < 2.0 mg/dL (<2.0); WBC,Urine < 1.0 /HPF (0.0-6.0)
[2019-10-24] MEDS ORDERED: SODIUM CHLORIDE 0.9% 1000 ML 1,000 ML IV ONE (07:14)
[2019-10-24] MEDS ORDERED: fentaNYL 100 MCG/2 ML INJ IV ONE (07:46)
[2019-10-24] MEDS ORDERED: ONDANSETRON 4 MG/2 ML INJ IV ONE (07:46)
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
[2019-10-24] MEDS ORDERED: ONDANSETRON 4 MG/2 ML INJ IM ONE (09:08)
[2019-10-24] MEDS: fentaNYL 100 MCG/2 ML INJ IM ONE ×2 (09:28→09:36)
== END 2019-10-24 09:37 | disposition home or self-care (01) ==
LOC: ED 23:04
DX: E11.65 Type 2 diabetes mellitus with hyperglycemia (principal); I10 Essential (primary) hypertension; I25.2 Old myocardial infarction; F31.9 Bipolar disorder, unspecified; F25.8 Other schizoaffective disorders; F17.200 Nicotine dependence, unspecified, uncomplicated; Z86.2 Personal history of diseases of the blood and blood-forming organs and certain disorders involving the immune mechanism; Z95.818 Presence of other cardiac implants and grafts; Z98.890 Other specified postprocedural states; Z79.899 Other long term (current) drug therapy; Z88.6 Allergy status to analgesic agent; Z88.2 Allergy status to sulfonamides; Z91.012 Allergy to eggs; Z88.8 Allergy status to other drugs, medicaments and biological substances
CPT/HCPCS: 36415; 80053; 81001; 82805; 82962; 85027; 96372; 99283; J2405; J3010; 99282

== ENCOUNTER 2020-01-24 09:26 | Emergency (ER) | payer MEDICARE ==
--- NOTE | 2020-01-24 10:27 | Emergency Department Report ---
Chief Complaint: Skin/Abscess/Foreign Body Stated Complaint: BUTTOCK PAINS Time Seen by Provider: 01/24/20 10:23 - HPI History of Present Illness: Patient is a 39-year-old female presents emergency room with complaints of chronic pain to the buttocks region. She states that she has a history of hidradenitis and 10 years ago had a surgical procedure performed and she had drains. She states that she intermittently has complications from her vaginitis. She states that she has surgery scheduled with plastics and colorectal on 02/04/2020. She states that occasionally she sees a small amount of drainage. She states that last week she completed a course of clindamycin. She denies any fever, vomiting, diarrhea, hematochezia, hematemesis, melena. Vitals are stable On exam: Non toxic appearing, no acute distress atraumatic, normocephalic normal appearance of the eyes, PERRL, EOMI, no periorbital edema or ecchymosis moist mucus membranes No respiratory distress, no accessory muscle use Offset Second Press Operator: OSCAR Bourne, healed surgical scars present surrounding the buttocks and anal opening, several areas of scar tissue, there is no induration, no fluctuance, there is no drainage, unable to express any drainage, there is no erythema, no increased warmth, no palpable masses, no signs of infection A&O x4, no focal neuro deficit skin is warm, dry, intact No signs of cellulitis, abscess, draining fistula, infection at this time Appears to be scar tissue and chronic pain advised pt Please follow-up with your primary care doctor. Please keep your appointment for your surgery. Return to emergency room for any new or worsening symptoms. Discussed strict return precautions with patient Medical screen examination performed and there is no threat to life or limb at this time - Exam Vital Signs: Vital Signs 01/24/20 09:49 Temperature 98.2 F Pulse Rate 102 H Respiratory 16 Rate Blood Pressure 131/68 O2 Sat by Pulse 99 Oximetry MSE screening note: Focused history and physical exam performed. Due to findings the following was ordered: ED Medical Decision Making - Lab Data Vital Signs 01/24/20 01/24/20 09:49 11:13 Temperature 98.2 F Pulse Rate 102 H 86 Respiratory 16 16 Rate Blood Pressure 131/68 Blood Pressure 141/77 [Right] O2 Sat by Pulse 99 100 Oximetry ED Disposition for MSE Clinical Impression: Encounter for medical screening examination Disposition: Z-07 MED SCREENING EXAM-LEFT Is pt being admited?: No Does the pt Need Aspirin: No Condition: Stable Additional Instructions: Please follow-up with your primary care doctor. Please keep your appointment for your surgery. Return to emergency room for any new or worsening symptoms. Referrals: your, primary care doctor [Other] - 2-3 Days Time of Disposition: 10:26 Print Language: ISRAELI
[2020-01-24 11:14] VITALS: BP 141/77
== END 2020-01-24 11:13 | disposition left against medical advice (07) ==
LOC: ED 09:26
DX: L02.31 Cutaneous abscess of buttock (principal); Z53.21 Procedure and treatment not carried out due to patient leaving prior to being seen by health care provider

== ENCOUNTER 2020-02-08 21:13 | Emergency (ER) | payer MEDICARE ==
[2020-02-08 23:33] VITALS: BP 136/86
[2020-02-09 00:28] LABS: Bilirubin,Urine NEG (Negative); Blood,Urine NEG (Negative); Color,Urine Straw (Yellow); Protein,Urine <15 mg/dL mg/dL (Negative); Urobilinogen,Urine < 2.0 mg/dL (<2.0)
== END 2020-02-09 10:08 | disposition left against medical advice (07) ==
LOC: ED 21:13
DX: R30.0 Dysuria (principal); Z53.21 Procedure and treatment not carried out due to patient leaving prior to being seen by health care provider
CPT/HCPCS: 81001

== ENCOUNTER 2020-02-09 10:19 | Emergency (ER) | payer MEDICARE ==
[2020-02-09 10:27] VITALS: BP 138/73
--- NOTE | 2020-02-09 10:50 | Event Note ---
ED Screening Note Date of service: 02/09/20 Time: 10:46 ED Screening Note: 1-year-old -Chinese female presents to the emergency room for 3-day history of urinary frequency urgency and dysuria. She reports she has had a fever low-grade highest pain is 100. She does have a history of high blood pressure and diabetes. This initial assessment/diagnostic orders/clinical plan/treatment(s) is/are subject to change based on patients health status, clinical progression and re- assessment by fellow clinical providers in the ED. Further treatment and workup at subsequent clinical providers discretion. Patient/guardian urged not to elope from the ED as their condition may be serious if not clinically assessed and managed. Initial orders include:
[2020-02-09 12:02] LABS: Bilirubin,Urine NEG (Negative); Blood,Urine NEG (Negative); Color,Urine Yellow (Yellow); Mucus,Urine FEW /HPF; Protein,Urine <15 mg/dL mg/dL (Negative); RBC,Urine < 1.0 /HPF (0.0-6.0); Urobilinogen,Urine < 2.0 mg/dL (<2.0)
[2020-02-09 12:14] LABS: HCG Qualitative,Urine Negative (Negative)
== END 2020-02-09 14:40 | disposition left against medical advice (07) ==
LOC: ED 10:19
DX: N89.8 Other specified noninflammatory disorders of vagina (principal); Z53.21 Procedure and treatment not carried out due to patient leaving prior to being seen by health care provider
CPT/HCPCS: 81001; 81025

== ENCOUNTER 2020-02-17 15:41 | Emergency (ER) | payer MEDICARE | END 2020-02-17 17:06 | disposition left against medical advice (07) | LOC: ED 15:41 | DX: R10.9 Unspecified abdominal pain (principal); Z53.21 Procedure and treatment not carried out due to patient leaving prior to being seen by health care provider ==

== ENCOUNTER 2020-02-19 20:27 | Emergency (ER) | payer MEDICARE ==
[2020-02-19 22:48] VITALS: BP 167/116
[2020-02-20 02:34] LABS: Alanine Aminotransferase 11 units/L (7-56); Albumin 4.1 g/dL (3.9-5); BUN/Creatinine Ratio 13; Basophils # (Auto) 0.1 K/mm3 (0.0-0.1); Basophils % (Auto) 0.6 % (0.0-1.8); Blood Urea Nitrogen 10 mg/dL (7-17); Calcium 9.3 mg/dL (8.4-10.2); Eosinophils # (Auto) 0.1 K/mm3 (0.0-0.4); Eosinophils % (Auto) 0.8 % (0.0-4.3); Hemolysis Index 34; Lymphocytes # (Auto) 2.9 K/mm3 (1.2-5.4); Lymphocytes % (Auto) 27.7 % (13.4-35.0); Mean Corpuscular HGB Conc 30 % (30-34); Mean Corpuscular Volume 71 fl (79-97); Monocytes # (Auto) 0.7 K/mm3 (0.0-0.8); Monocytes % (Auto) 6.9 % (0.0-7.3); Platelet Count 288 K/mm3 (140-440); Red Blood Count 4.69 M/mm3 (3.65-5.03)
[2020-02-20 03:01] LABS: Hematocrit 33.4 % (30.3-42.9); Hemoglobin 9.9 gm/dl (10.1-14.3); Red Cell Distribution Width 20.4 % (13.2-15.2)
--- NOTE | 2020-02-20 03:57 | Emergency Department Report ---
ED Abdominal Pain HPI - General Chief Complaint: Abdominal Pain Stated Complaint: LOWER ABDOMINAL PAIN/VAGINAL DISCHARGE Source: patient Mode of arrival: Ambulatory Limitations: No Limitations - History of Present Illness Initial Comments: Patient is a 40-year-old -Swedish female who presents for bilateral lower abdominal pain. Patient states history of ovarian cyst recurrent. Last menstrual cycle 3 weeks ago. States nausea and vomiting intermittently x1 week. Does not remember trigger food that precipitated nausea vomiting. Patient states nausea vomiting has resolved at this time however there has been no fever, chills, nausea vomiting today. Patient has secondary complaint of white malodorous vaginal discharge. Patient now states that she is and declines vaginal exam. Patient advised to complete same with CHECK SERVICES CLERK or health department follow-up. MD Complaint: abdominal pain Onset/Timin -: Gradual, week(s) Location: LLQ, RLQ Radiation: none Migration to: no migration Severity: moderate Severity scale (0 -10): 3 Quality: cramping Consistency: intermittent (Drains grams 01) Improves With: nothing Worsens With: eating Context: possible food poisoning Associated Symptoms: nausea, vomiting, hematochezia. denies: diarrhea, fever, chills, constipation, dysuria (Is using), hematemesis, melena, anorexia, syncope - Related Data LMP (females 10-50): this week Home Medications Medication Instructions Recorded Confirmed Last Taken lisinopriL [Lisinopril] 20 mg PO DAILY 10/08/17 09/11/19 11/20/17 10:00 Zolpidem [Ambien] 10 mg PO QHS 11/26/17 09/11/19 Unknown Detemir (Nf) [Levemir (Nf)] 60 units SUB-Q HS 11/27/17 09/11/19 1 Day Ago ~09/10/19 Previous Rx's Medication Instructions Recorded Last Taken Type Aspirin [Aspirin BABY CHEW TAB] 81 mg PO QDAY #30 tab.chew 06/12/17 11/20/17 10:00 Rx Insulin Detemir [Levemir Flextouch] 40 unit SQ QHS #4 insuln.pen 04/05/19 1 Day Ago Rx ~09/10/19 Clopidogrel [Plavix] 75 mg PO QDAY #30 tablet 07/20/19 1 Day Ago Rx ~09/10/19 Hydroxychloroquine [Plaquenil] 200 mg PO QDAY #20 tablet 07/20/19 Unknown Rx Insulin Glargine [Lantus VIAL] 50 unit SUB-Q QHS #1 vial 10/06/19 Unknown Rx metroNIDAZOLE [Flagyl] 500 mg PO BID 7 Days #14 tab 02/20/20 Unknown Rx Allergies Allergy/AdvReac Type Severity Reaction Status Date / Time egg Allergy Hives Verified 09/13/19 01:43 tramadol HCl [From Ultram] Allergy Hives Verified 09/13/19 01:43 vancomycin Allergy Hives Verified 09/13/19 01:43 NSAIDS (Non-Steroidal AdvReac Vomiting Verified 09/13/19 01:43 Anti-Inflamma ED Review of Systems ROS: Stated complaint: LOWER ABDOMINAL PAIN/VAGINAL DISCHARGE Other details as noted in HPI Constitutional: denies: chills, fever Eyes: denies: eye pain, eye discharge, vision change ENT: denies: ear pain, throat pain Respiratory: denies: cough, shortness of breath, wheezing Cardiovascular: as per HPI Endocrine: no symptoms reported (Presenting the next visit is) Gastrointestinal: abdominal pain, nausea ( wheezing), vomiting Genitourinary: discharge (white malourous is no exam is). denies: urgency, dysuria, frequency, hematuria Musculoskeletal: denies: back pain, joint swelling, arthralgia Skin: as per HPI. 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 iron deficient anemia - Surgical History Hx Coronary Stent: Yes (x1) Hx Breast Surgery: Yes (breast reduction 05/2004) Additional Surgical History: Breast reduction bilateral,excisional surg. for abscess - Social History Smoking Status: Current Every Day Smoker Substance Use Type: Marijuana - Medications Home Medications: Home Medications Medication Instructions Recorded Confirmed Last Taken Type Aspirin [Aspirin BABY CHEW TAB] 81 mg PO QDAY #30 tab.chew 06/12/17 09/11/19 11/20/17 10:00 Rx lisinopriL [Lisinopril] 20 mg PO DAILY 10/08/17 09/11/19 11/20/17 10:00 History Zolpidem [Ambien] 10 mg PO QHS 11/26/17 09/11/19 Unknown History Detemir (Nf) [Levemir (Nf)] 60 units SUB-Q HS 11/27/17 09/11/19 1 Day Ago History ~09/10/19 Insulin Detemir [Levemir Flextouch] 40 unit SQ QHS #4 insuln.pen 04/05/19 09/11/19 1 Day Ago Rx ~09/10/19 Clopidogrel [Plavix] 75 mg PO QDAY #30 tablet 07/20/19 09/11/19 1 Day Ago Rx ~09/10/19 Hydroxychloroquine [Plaquenil] 200 mg PO QDAY #20 tablet 07/20/19 09/11/19 Unknown Rx Insulin Glargine [Lantus VIAL] 50 unit SUB-Q QHS #1 vial 10/06/19 Unknown Rx metroNIDAZOLE [Flagyl] 500 mg PO BID 7 Days #14 tab 02/20/20 Unknown Rx ED Physical Exam - General Limitations: No Limitations General appearance: alert, in no apparent distress - Head Head exam: Present: atraumatic, normocephalic - Eye Eye exam: Present: normal appearance - ENT ENT exam: Present: mucous membranes moist - Neck Neck exam: Present: normal inspection, full ROM. Absent: tenderness - Respiratory Respiratory exam: Present: normal lung sounds bilaterally, rhonchi. Absent: respiratory distress, wheezes - Cardiovascular Cardiovascular Exam: Present: regular rate, normal rhythm, normal heart sounds. Absent: systolic murmur, diastolic murmur, rubs, gallop - GI/Abdominal GI/Abdominal exam: Present: soft, normal bowel sounds. Absent: distended, tende rness, guarding, rebound, rigid, bruit, hernia - Rectal Rectal exam: Present: deferred - External exam: Present: other (deferred by patient ) - Extremities Exam Extremities exam: Present: normal inspection, full ROM, tenderness, normal capillary refill - Back Exam Back exam: Present: normal inspection, full ROM. Absent: tenderness, CVA te nderness (R), CVA tenderness (L), vertebral tenderness - Neurological Exam Neurological exam: Present: alert, oriented X3, CN II-XII intact, normal gait - Psychiatric Psychiatric exam: Present: normal affect, normal mood - Skin Skin exam: Present: warm, dry, intact, normal color. Absent: rash ED Course Vital Signs 02/19/20 21:41 Temperature 98.2 F Pulse Rate 69 Respiratory 18 Rate Blood Pressure 167/116 O2 Sat by Pulse 99 Oximetry ED Medical Decision Making - Lab Data Result diagrams: 02/19/20 21:36 02/19/20 21:36 Labs 02/19/20 02/19/20 21:36 21:36 WBC 10.3 RBC 4.69 Hgb 9.9 L Hct 33.4 MCV 71 L MCH 21 L MCHC 30 RDW 20.4 H Plt Count 288 Lymph % (Auto) 27.7 [place] % (Auto) 6.9 Eos % (Auto) 0.8 Baso % (Auto) 0.6 Lymph # (Auto) 2.9 [place] # (Auto) 0.7 Eos # (Auto) 0.1 Baso # (Auto) 0.1 Seg Neutrophils % 64.0 Seg Neutrophils # 6.6 Sodium 135 L Potassium 4.4 Chloride 100.5 Carbon Dioxide 20 L Anion Gap 19 BUN 10 Creatinine 0.8 Estimated GFR > 60 BUN/Creatinine Ratio 13 Glucose 181 H Calcium 9.3 Total Bilirubin 0.20 AST 18 ALT 11 Alkaline Phosphatase 90 Total Protein 6.9 Albumin 4.1 Albumin/Globulin Ratio 1.5 - Medical Decision Making CBC and CMP are normal. Patient denies UA at this time. Does endorse white thi ck malodorous vaginal discharge. Patient treated for prophylactic STD exposure as requested. D DC to home with prescription for Flagyl. Patient advises tubal ligation. Patient will follow-up with CHECK SERVICES CLERK in 2 to 3 days patient verbalizes agreement and understanding with discharge plan. Patient DC'd home in stable condition at this time. Dx Abd Pain, Vagnitis. Critical care attestation.: If time is entered above; I have spent that time in minutes in the direct care of this critically ill patient, excluding procedure time. ED Disposition Clinical Impression: Hx of ovarian cyst Vaginitis Qualifiers: Chronicity: acute Qualified Code(s): N76.0 - Acute vaginitis Abdominal pain Qualifiers: Abdominal location: lower abdomen, unspecified Qualified Code(s): R10.30 - Lower abdominal pain, unspecified Disposition: - TO HOME OR SELFCARE Is pt being admited?: No Does the pt Need Aspirin: No Condition: Stable Instructions: Abdominal Pain (ED), Abdominal Pain, Adult, [id number], Vaginitis Prescriptions: metroNIDAZOLE [Flagyl] 500 mg PO BID 7 Days #14 tab Referrals: [facility] [Provider Group] - 3-5 Days [facility] [Outside] - 3-5 Days Forms: Work/School Release Form(ED) Time of Disposition: 04:36
[2020-02-20] MEDS ORDERED: LIDOCAINE-MPF (1%) 10 MG/1 ML VIAL 5 ML INFILTRATI ONE (04:09)
[2020-02-20] MEDS ORDERED: AZITHROMYCIN 250 MG TAB PO ONE (04:09)
[2020-02-20] MEDS ORDERED: ACETAMINOPHEN W/CODEINE 300-30 MG TAB PO ONE (05:27)
== END 2020-02-20 05:45 | disposition home or self-care (01) ==
LOC: ED 20:27
DX: N76.0 Acute vaginitis (principal); R10.30 Lower abdominal pain, unspecified; I10 Essential (primary) hypertension; I25.2 Old myocardial infarction; E11.9 Type 2 diabetes mellitus without complications; F25.0 Schizoaffective disorder, bipolar type; F17.200 Nicotine dependence, unspecified, uncomplicated; F12.90 Cannabis use, unspecified, uncomplicated; Z98.890 Other specified postprocedural states; Z79.899 Other long term (current) drug therapy; Z91.012 Allergy to eggs; Z88.8 Allergy status to other drugs, medicaments and biological substances; Z95.5 Presence of coronary angioplasty implant and graft; Z87.42 Personal history of other diseases of the female genital tract
CPT/HCPCS: 36415; 80053; 85025; 96372; 99283; J0696

== ENCOUNTER 2020-03-31 22:56 | Emergency (ER) | payer MEDICARE ==
[2020-04-01 01:10] VITALS: BP 126/78
[2020-04-01 04:49] LABS: Bacteria,Urine 1+ /HPF (Negative); Bilirubin,Urine NEG (Negative); Blood,Urine NEG (Negative); Color,Urine Yellow (Yellow); Mucus,Urine FEW /HPF; Protein,Urine <15 mg/dL mg/dL (Negative); Urobilinogen,Urine < 2.0 mg/dL (<2.0)
[2020-04-01 16:01] LABS: Basophils % (Auto) 0.4 % (0.0-1.8); Eosinophils # (Auto) 0.1 K/mm3 (0.0-0.4); Eosinophils % (Auto) 0.9 % (0.0-4.3); Hematocrit 35.3 % (30.3-42.9); Hemoglobin 10.8 gm/dl (10.1-14.3); Lymphocytes # (Auto) 2.7 K/mm3 (1.2-5.4); Lymphocytes % (Auto) 40.7 % (13.4-35.0); Mean Corpuscular HGB Conc 31 % (30-34); Mean Corpuscular Volume 71 fl (79-97); Monocytes # (Auto) 0.4 K/mm3 (0.0-0.8); Monocytes % (Auto) 5.4 % (0.0-7.3); Platelet Count 302 K/mm3 (140-440); Red Cell Distribution Width 19.2 % (13.2-15.2)
--- NOTE | 2020-04-01 16:39 | Emergency Department Report ---
ED Female HPI - General Chief complaint: Vaginal Bleeding Stated complaint: LOW RIGHT ABD PAIN BACK VAG BLEEDING Source: patient Mode of arrival: Ambulatory Limitations: No Limitations - History of Present Illness Initial comments: 40-year-old -[place] female presents to the emergency room for dysuria and urinary pressure x4 days. 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 Patient states that she is sexually active only with 1 partner. She denies any fever chills or nausea no vomiting. Last menstrual period was 03/17/2020. MD Complaint: dysuria Onset/Timin -: days(s) Location: suprapubic Severity: moderate Consistency: intermittent Worsens with: urination Are you Now?: No Last Menstrual Period: 03/17/20 EDC: 12/22/20 Associated Symptoms: dysuria, hematuria. denies: nausea/vomiting, fever/chills - Related Data Sexually active: Yes Home Medications Medication Instructions Recorded Confirmed Last Taken lisinopriL [Lisinopril] 20 mg PO DAILY 10/08/17 09/11/19 11/20/17 10:00 Zolpidem (Nf) [Ambien] 10 mg PO QHS 11/26/17 09/11/19 Unknown Detemir (Nf) [Levemir (Nf)] 60 units SUB-Q HS 11/27/17 09/11/19 1 Day Ago ~09/10/19 Previous Rx's Medication Instructions Recorded Last Taken Type Aspirin [Aspirin BABY CHEW TAB] 81 mg PO QDAY #30 tab.chew 06/12/17 11/20/17 10:00 Rx Insulin Detemir [Levemir Flextouch] 40 unit SQ QHS #4 insuln.pen 04/05/19 1 Day Ago Rx ~09/10/19 Clopidogrel [Plavix] 75 mg PO QDAY #30 tablet 07/20/19 1 Day Ago Rx ~09/10/19 Hydroxychloroquine [Plaquenil] 200 mg PO QDAY #20 tablet 07/20/19 Unknown Rx Insulin Glargine [Lantus VIAL] 50 unit SUB-Q QHS #1 vial 10/06/19 Unknown Rx metroNIDAZOLE [Flagyl] 500 mg PO BID 7 Days #14 tab 02/20/20 Unknown Rx Nitrofurantoin [place]/M-Cryst 100 mg PO Q12HR 10 Days #20 capsule 04/01/20 Unknown Rx [Macrobid CAP] Phenazopyridine [Pyridium] 100 mg PO TID #6 tab 04/01/20 Unknown Rx Allergies Allergy/AdvReac Type Severity Reaction Status Date / Time egg Allergy Hives Verified 09/13/19 01:43 tramadol HCl [From Ultram] Allergy Hives Verified 09/13/19 01:43 vancomycin Allergy Hives Verified 09/13/19 01:43 NSAIDS (Non-Steroidal AdvReac Vomiting Verified 09/13/19 01:43 Anti-Inflamma ED Review of Systems ROS: Stated complaint: LOW RIGHT ABD PAIN BACK VAG BLEEDING Other details as noted in HPI Comment: All other systems reviewed and negative ED Past Medical Hx - Past Medical History Previous Medical History?: Yes Hx Hypertension: Yes Hx CVA: No Hx Heart Attack/AMI: Yes (05/22, cardiac stent x1) Hx Congestive Heart Failure: No Hx Diabetes: Yes (type 2) Hx Deep Vein Thrombosis: No Hx Pulmonary Embolism: No Hx GERD: No Hx Liver Disease: No Hx Renal Disease: No Hx Sickle Cell Disease: No Hx Arthritis: No Hx Headaches / Migraines: No Hx Seizures: No Hx Kidney Stones: No 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 iron deficient anemia - Surgical History Past Surgical History?: Yes Hx Coronary Stent: Yes (x1) Hx Breast Surgery: Yes (breast reduction 05/2004) Additional Surgical History: Breast reduction bilateral,excisional surg. for abscess - Social History Smoking Status: Current Every Day Smoker Substance Use Type: Marijuana - Medications Home Medications: Home Medications Medication Instructions Recorded Confirmed Last Taken Type Aspirin [Aspirin BABY CHEW TAB] 81 mg PO QDAY #30 tab.chew 06/12/17 09/11/19 11/20/17 10:00 Rx lisinopriL [Lisinopril] 20 mg PO DAILY 10/08/17 09/11/19 11/20/17 10:00 History Zolpidem (Nf) [Ambien] 10 mg PO QHS 11/26/17 09/11/19 Unknown History Detemir (Nf) [Levemir (Nf)] 60 units SUB-Q HS 11/27/17 09/11/19 1 Day Ago History ~09/10/19 Insulin Detemir [Levemir Flextouch] 40 unit SQ QHS #4 insuln.pen 04/05/19 09/11/19 1 Day Ago Rx ~09/10/19 Clopidogrel [Plavix] 75 mg PO QDAY #30 tablet 07/20/19 09/11/19 1 Day Ago Rx ~09/10/19 Hydroxychloroquine [Plaquenil] 200 mg PO QDAY #20 tablet 07/20/19 09/11/19 Unknown Rx Insulin Glargine [Lantus VIAL] 50 unit SUB-Q QHS #1 vial 10/06/19 Unknown Rx metroNIDAZOLE [Flagyl] 500 mg PO BID 7 Days #14 tab 02/20/20 Unknown Rx Nitrofurantoin [place]/M-Cryst 100 mg PO Q12HR 10 Days #20 capsule 04/01/20 Unknown Rx [Macrobid CAP] Phenazopyridine [Pyridium] 100 mg PO TID #6 tab 04/01/20 Unknown Rx ED Physical Exam - General Limitations: No Limitations General appearance: alert, in no apparent distress - Head Head exam: Present: atraumatic, normocephalic - Eye Eye exam: Present: normal appearance - ENT ENT exam: Present: mucous membranes moist - Neck Neck exam: Present: normal inspection, full ROM - Respiratory Respiratory exam: Absent: accessory muscle use - Cardiovascular Cardiovascular Exam: Present: regular rate, normal rhythm. Absent: systolic murmur, diastolic murmur, rubs, gallop - GI/Abdominal GI/Abdominal exam: Present: soft, normal bowel sounds - Extremities Exam Extremities exam: Present: full ROM - Neurological Exam Neurological exam: Present: alert, oriented X3, normal gait - Psychiatric Psychiatric exam: Present: normal affect, normal mood - Skin Skin exam: Present: warm, dry, intact, normal color. Absent: rash ED Course Vital Signs 04/01/20 01:07 Temperature 97.8 F Pulse Rate 91 H Respiratory 18 Rate Blood Pressure 126/78 O2 Sat by Pulse 99 Oximetry ED Medical Decision Making - Lab Data Result diagrams: 04/01/20 15:19 Critical care attestation.: If time is entered above; I have spent that time in minutes in the direct care of this critically ill patient, excluding procedure time. ED Disposition Clinical Impression: UTI (urinary tract infection) Disposition: DC-01 TO HOME OR SELFCARE Is pt being admited?: No Does the pt Need Aspirin: No Condition: Stable Instructions: Urinary Tract Infection, Adult, [id number] Additional Instructions: Please complete antibiotics as prescribed. Increase your water intake by 2 to 3 L daily. Pyridium medication will turn your urine orange. This medication will help with the pain with burning. Follow-up with your primary care provider. Prescriptions: Nitrofurantoin [place]/M-Cryst [Macrobid CAP] 100 mg PO Q12HR 10 Days #20 capsule Phenazopyridine [Pyridium] 100 mg PO TID #6 tab Referrals: ALTAGRACIA WREN NP-C [Primary Care Provider] - 3-5 Days
== END 2020-04-01 01:30 | disposition home or self-care (01) ==
LOC: ED 22:56
DX: N39.0 Urinary tract infection, site not specified (principal); I10 Essential (primary) hypertension; I25.2 Old myocardial infarction; E11.9 Type 2 diabetes mellitus without complications; F25.0 Schizoaffective disorder, bipolar type; Z98.890 Other specified postprocedural states; F17.200 Nicotine dependence, unspecified, uncomplicated; F12.10 Cannabis abuse, uncomplicated; Z88.6 Allergy status to analgesic agent; Z91.012 Allergy to eggs; Z88.8 Allergy status to other drugs, medicaments and biological substances
CPT/HCPCS: 36415; 81001; 84702; 84703; 85025; 86900; 86901; 87086; 99283

== ENCOUNTER 2020-04-23 17:22 | Emergency (ER) | payer MEDICARE ==
--- NOTE | 2020-04-23 17:52 | Emergency Department Report ---
Blank Doc - Documentation Documentation: This is a 40-year-old female that presents with lupus flare and bilateral leg swelling. 1- This initial assessment/diagnostic orders/clinical plan/ treatment(s) is/are subject to change based on pt's health status, clinical progression and re- assessment by fellow clinical providers in the ED. Further treatment and workup at subsequent clinical provers discretion. Patient/guardians urged not to elope from ED as their condition may be serious if not clinically assessed and m anaged. 2-labs 3-UA
[2020-04-23 18:28] LABS: Basophils # (Auto) 0.1 K/mm3 (0.0-0.1); Basophils % (Auto) 0.6 % (0.0-1.8); Eosinophils % (Auto) 0.4 % (0.0-4.3); Hemoglobin 10.2 gm/dl (10.1-14.3); Lymphocytes # (Auto) 2.5 K/mm3 (1.2-5.4); Lymphocytes % (Auto) 29.3 % (13.4-35.0); Mean Corpuscular HGB Conc 32 % (30-34); Mean Corpuscular Volume 70 fl (79-97); Monocytes # (Auto) 0.4 K/mm3 (0.0-0.8); Monocytes % (Auto) 5.2 % (0.0-7.3); Platelet Count 299 K/mm3 (140-440); Red Blood Count 4.55 M/mm3 (3.65-5.03); Red Cell Distribution Width 18.1 % (13.2-15.2)
[2020-04-23 18:48] LABS: Alanine Aminotransferase 33 units/L (7-56); Blood Urea Nitrogen 10 mg/dL (7-17); Calcium 8.5 mg/dL (8.4-10.2); Hemolysis Index 11
[2020-04-23 18:51] LABS: BUN/Creatinine Ratio 14
[2020-04-24] MEDS ORDERED: HYDROmorphone 2 MG/1 ML INJ IM ONE (00:36)
[2020-04-24] MEDS ORDERED: methylPREDNISolone Sod Succinate 125 MG/2 ML INJ IM ONE (00:36)
--- NOTE | 2020-04-24 00:42 | Emergency Department Report ---
ED General Adult HPI - General Chief complaint: Pain General Stated complaint: LUPUS;NAUSEA/VOMITING Time Seen by Provider: 04/23/20 17:46 Source: patient Mode of arrival: Ambulatory Limitations: No Limitations - History of Present Illness Initial comments: 40-year-old female with a past medical history of type 2 diabetes currently on insulin, CAD with stent x1, bipolar disorder, schizoaffective personality disorder, lupus, and diabetic neuropathy presents to the hospital complaining of lupus flare x3 days. Patient complains of generalized body aches/myalgias, fatigue, low-grade temp as well as lower extremity edema. Patient denies chest pain, cough, or shortness of breath. Patient currently on Plaquenil and Suboxone 2 mg twice daily (prescribed by [facility]). 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 Patient does not currently take a diuretic and is not currently on steroids. - Related Data Home Medications Medication Instructions Recorded Confirmed Last Taken lisinopriL [Lisinopril] 20 mg PO DAILY 10/08/17 09/11/19 11/20/17 10:00 Zolpidem (Nf) [Ambien] 10 mg PO QHS 11/26/17 09/11/19 Unknown Detemir (Nf) [Levemir (Nf)] 60 units SUB-Q HS 11/27/17 09/11/19 1 Day Ago ~09/10/19 Previous Rx's Medication Instructions Recorded Last Taken Type Aspirin [Aspirin BABY CHEW TAB] 81 mg PO QDAY #30 tab.chew 06/12/17 11/20/17 10:00 Rx Insulin Detemir [Levemir Flextouch] 40 unit SQ QHS #4 insuln.pen 04/05/19 1 Day Ago Rx ~09/10/19 Clopidogrel [Plavix] 75 mg PO QDAY #30 tablet 07/20/19 1 Day Ago Rx ~09/10/19 Hydroxychloroquine [Plaquenil] 200 mg PO QDAY #20 tablet 07/20/19 Unknown Rx Insulin Glargine [Lantus VIAL] 50 unit SUB-Q QHS #1 vial 10/06/19 Unknown Rx metroNIDAZOLE [Flagyl] 500 mg PO BID 7 Days #14 tab 02/20/20 Unknown Rx Nitrofurantoin [place]/M-Cryst 100 mg PO Q12HR 10 Days #20 capsule 04/01/20 Unknown Rx [Macrobid CAP] Phenazopyridine [Pyridium] 100 mg PO TID #6 tab 04/01/20 Unknown Rx Prednisone [predniSONE 10 mg 10 mg PO .TAPER #1 tab.ds.pk 04/24/20 Unknown Rx (6-Day Pack, 21 Tabs)] Allergies Allergy/AdvReac Type Severity Reaction Status Date / Time egg Allergy Hives Verified 04/23/20 17:34 tramadol HCl [From Ultram] Allergy Hives Verified 04/23/20 17:34 vancomycin Allergy Hives Verified 04/23/20 17:34 NSAIDS (Non-Steroidal AdvReac Vomiting Verified 04/23/20 17:34 Anti-Inflamma ED Review of Systems ROS: Stated complaint: LUPUS;NAUSEA/VOMITING Other details as noted in HPI Comment: All other systems reviewed and negative ED Past Medical Hx - Past Medical History Hx Hypertension: Yes Hx CVA: No Hx Heart Attack/AMI: Yes (05/22, cardiac stent x1) Hx Congestive Heart Failure: No Hx Diabetes: Yes (type 2) Hx Deep Vein Thrombosis: No Hx Pulmonary Embolism: No Hx GERD: No Hx Liver Disease: No Hx Renal Disease: No Hx Sickle Cell Disease: No Hx Arthritis: No Hx Headaches / Migraines: No Hx Seizures: No Hx Kidney Stones: No 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 iron deficient anemia - Surgical History Hx Coronary Stent: Yes (x1) Hx Breast Surgery: Yes (breast reduction 05/2004) Additional Surgical History: Breast reduction bilateral,excisional surg. for abscess - Social History Smoking Status: Never Smoker Substance Use Type: None - Medications Home Medications: Home Medications Medication Instructions Recorded Confirmed Last Taken Type Aspirin [Aspirin BABY CHEW TAB] 81 mg PO QDAY #30 tab.chew 06/12/17 09/11/19 11/20/17 10:00 Rx lisinopriL [Lisinopril] 20 mg PO DAILY 10/08/17 09/11/19 11/20/17 10:00 History Zolpidem (Nf) [Ambien] 10 mg PO QHS 11/26/17 09/11/19 Unknown History Detemir (Nf) [Levemir (Nf)] 60 units SUB-Q HS 11/27/17 09/11/19 1 Day Ago History ~09/10/19 Insulin Detemir [Levemir Flextouch] 40 unit SQ QHS #4 insuln.pen 04/05/19 09/11/19 1 Day Ago Rx ~09/10/19 Clopidogrel [Plavix] 75 mg PO QDAY #30 tablet 07/20/19 09/11/19 1 Day Ago Rx ~09/10/19 Hydroxychloroquine [Plaquenil] 200 mg PO QDAY #20 tablet 07/20/19 09/11/19 Unknown Rx Insulin Glargine [Lantus VIAL] 50 unit SUB-Q QHS #1 vial 10/06/19 Unknown Rx metroNIDAZOLE [Flagyl] 500 mg PO BID 7 Days #14 tab 02/20/20 Unknown Rx Nitrofurantoin [place]/M-Cryst 100 mg PO Q12HR 10 Days #20 capsule 04/01/20 Unknown Rx [Macrobid CAP] Phenazopyridine [Pyridium] 100 mg PO TID #6 tab 04/01/20 Unknown Rx Prednisone [predniSONE 10 mg 10 mg PO .TAPER #1 tab.ds.pk 04/24/20 Unknown Rx (6-Day Pack, 21 Tabs)] ED Physical Exam - General Limitations: No Limitations - Other Other exam information: General: No acute distress Head: Atraumatic Eyes: normal appearance ENT: Moist mucous membranes Neck: Normal appearance, no midline tenderness Chest: Clear to auscultation bilaterally CV: Regular rate and rhythm Abdomen: Soft, normal bowel sounds, nontender, nondistended, no rebound or guarding Back: Normal inspection Extremity: Bilateral pitting lower extremity edema without calf tenderness or leg asymmetry Neuro: Alert O x 3, no facial asymmetry, speech clear, no gross motor sensory deficit Psych: Appropriate behavior Skin: No rash ED Course Vital Signs 04/23/20 04/23/20 04/24/20 17:40 17:43 00:57 Temperature Pulse Rate 70 Respiratory 22 18 Rate Blood Pressure 150/73 Blood Pressure [Right] O2 Sat by Pulse 100 Oximetry 04/24/20 00:59 Temperature 97.7 F Pulse Rate 60 Respiratory 18 Rate Blood Pressure Blood Pressure 126/69 [Right] O2 Sat by Pulse 100 Oximetry ED Medical Decision Making - Lab Data Result diagrams: 04/23/20 18:10 04/23/20 18:10 Lab Results 04/23/20 04/23/20 04/23/20 Range/Units 03:20 17:42 18:10 WBC 8.5 (4.5-11.0) K/mm3 RBC 4.55 (3.65-5.03) M/mm3 Hgb 10.2 (10.1-14.3) gm/dl Hct 32.0 (30.3-42.9) % MCV 70 L (79-97) fl MCH 22 L (28-32) pg MCHC 32 (30-34) % RDW 18.1 H (13.2-15.2) % Plt Count 299 (140-440) K/mm3 Lymph % (Auto) 29.3 (13.4-35.0) % [place] % (Auto) 5.2 (0.0-7.3) % Eos % (Auto) 0.4 (0.0-4.3) % Baso % (Auto) 0.6 (0.0-1.8) % Lymph # (Auto) 2.5 (1.2-5.4) K/mm3 [place] # (Auto) 0.4 (0.0-0.8) K/mm3 Eos # (Auto) 0.0 (0.0-0.4) K/mm3 Baso # (Auto) 0.1 (0.0-0.1) K/mm3 Seg Neutrophils % 64.5 (40.0-70.0) % Seg Neutrophils # 5.5 (1.8-7.7) K/mm3 Sodium (137-145) mmol/L Potassium (3.6-5.0) mmol/L Chloride (98-107) mmol/L Carbon Dioxide (22-30) mmol/L Anion Gap mmol/L BUN (7-17) mg/dL Creatinine (0.6-1.2) mg/dL Estimated GFR ml/min BUN/Creatinine Ratio % Glucose (65-100) mg/dL POC Glucose 223 H (70-105) mg/dL Calcium (8.4-10.2) mg/dL Total Bilirubin (0.1-1.2) mg/dL AST (5-40) units/L ALT (7-56) units/L Alkaline Phosphatase (35-129) units/L NT-Pro-B Natriuret Pep (0-450) pg/mL Total Protein (6.3-8.2) g/dL Albumin (3.9-5) g/dL Albumin/Globulin Ratio % HCG, Qual (Negative) Urine Color Straw (Yellow) Urine Turbidity Clear (Clear) Urine pH 6.0 (5.0-7.0) Ur Specific [place] 1.008 (1.003-1.030) Urine Protein <15 mg/dl (Negative) mg/dL Urine Glucose (UA) Neg (Negative) mg/dL Urine Ketones Neg (Negative) mg/dL Urine Blood Neg (Negative) Urine Nitrite Neg (Negative) Urine Bilirubin Neg (Negative) Urine Urobilinogen < 2.0 (<2.0) mg/dL Ur Leukocyte Esterase Neg (Negative) Urine WBC (Auto) 1.0 (0.0-6.0) /HPF Urine RBC (Auto) 2.0 (0.0-6.0) /HPF U Epithel Cells (Auto) < 1.0 (0-13.0) /HPF Urine Bacteria (Auto) 1+ (Negative) /HPF Urine Mucus Few /HPF 04/23/20 04/23/20 04/24/20 Range/Units 18:10 18:10 00:37 WBC (4.5-11.0) K/mm3 RBC (3.65-5.03) M/mm3 Hgb (10.1-14.3) gm/dl Hct (30.3-42.9) % MCV (79-97) fl MCH (28-32) pg MCHC (30-34) % RDW (13.2-15.2) % Plt Count (140-440) K/mm3 Lymph % (Auto) (13.4-35.0) % [place] % (Auto) (0.0-7.3) % Eos % (Auto) (0.0-4.3) % Baso % (Auto) (0.0-1.8) % Lymph # (Auto) (1.2-5.4) K/mm3 [place] # (Auto) (0.0-0.8) K/mm3 Eos # (Auto) (0.0-0.4) K/mm3 Baso # (Auto) (0.0-0.1) K/mm3 Seg Neutrophils % (40.0-70.0) % Seg Neutrophils # (1.8-7.7) K/mm3 Sodium 140 (137-145) mmol/L Potassium 4.0 (3.6-5.0) mmol/L Chloride 105.6 (98-107) mmol/L Carbon Dioxide 23 (22-30) mmol/L Anion Gap 15 mmol/L BUN 10 (7-17) mg/dL Creatinine 0.7 (0.6-1.2) mg/dL Estimated GFR > 60 ml/min BUN/Creatinine Ratio 14 % Glucose 204 H (65-100) mg/dL POC Glucose (70-105) mg/dL Calcium 8.5 (8.4-10.2) mg/dL Total Bilirubin 0.20 (0.1-1.2) mg/dL AST 25 (5-40) units/L ALT 33 (7-56) units/L Alkaline Phosphatase 91 (35-129) units/L NT-Pro-B Natriuret Pep 514.9 H (0-450) pg/mL Total Protein 6.3 (6.3-8.2) g/dL Albumin 4.0 (3.9-5) g/dL Albumin/Globulin Ratio 1.7 % HCG, Qual Negative (Negative) Urine Color (Yellow) Urine Turbidity (Clear) Urine pH (5.0-7.0) Ur Specific [place] (1.003-1.030) Urine Protein (Negative) mg/dL Urine Glucose (UA) (Negative) mg/dL Urine Ketones (Negative) mg/dL Urine Blood (Negative) Urine Nitrite (Negative) Urine Bilirubin (Negative) Urine Urobilinogen (<2.0) mg/dL Ur Leukocyte Esterase (Negative) Urine WBC (Auto) (0.0-6.0) /HPF Urine RBC (Auto) (0.0-6.0) /HPF U Epithel Cells (Auto) (0-13.0) /HPF Urine Bacteria (Auto) (Negative) /HPF Urine Mucus /HPF - Radiology Data Radiology results: report reviewed b/l doppler negative for dvt - Medical Decision Making 40-year-old female presents to the hospital complaining of myalgias, leg edema, and symptoms related to lupus flare. She is current on Plaquenil and is taking Suboxone twice a day for chronic pain management. In the ED she received IM Dilaudid and IM Solu-Medrol as well as 1 dose of p.o. Lasix. Patient does not have symptoms of pulmonary edema and denies shortness of breath and is able to lie flat in the bed. Suspect leg edema secondary to lupus flares as well with a negative DVT study Critical Care Time: No Critical care attestation.: If time is entered above; I have spent that time in minutes in the direct care of this critically ill patient, excluding procedure time. ED Disposition Clinical Impression: Lupus, Leg edema, Myalgia Disposition: TO HOME OR SELFCARE Is pt being admited?: No Does the pt Need Aspirin: No Condition: Stable Instructions: Edema, Systemic Lupus Erythematosus, Adult Additional Instructions: Take the medication as prescribed. Follow-up with your doctor or doctor/clinic provided. Return if symptoms worsen as indicated by your discharge in structions. Prescriptions: Prednisone [predniSONE 10 mg (6-Day Pack, 21 Tabs)] 10 mg PO .TAPER #1 tab.ds.pk Referrals: ALTAGRACIA WREN NP-C [Primary Care Provider] - 3-5 Days Time of Disposition: 04:43
[2020-04-24 01:00] VITALS: BP 126/69
--- NOTE | 2020-04-24 02:11 | Vascular Lab Report ---
DUPLEX DOPPLER LOWER EXTREMITY VEINS, BILATERAL INDICATION / CLINICAL INFORMATION: b/l leg swelling, lupus TECHNIQUE: Duplex doppler imaging was performed through the veins of both lower extremities using susan ous compression and other maneuvers. COMPARISON: None available. FINDINGS: RIGHT COMMON FEMORAL VEIN: Negative. RIGHT FEMORAL VEIN: Negative. RIGHT POPLITEAL VEIN: Negative. RIGHT CALF VEINS: Negative. LEFT COMMON FEMORAL VEIN: Negative. LEFT FEMORAL VEIN: Negative. LEFT POPLITEAL VEIN: Negative. LEFT CALF VEINS: Negative. ADDITIONAL FINDINGS: None. IMPRESSION: No sonographic evidence for DVT in either lower extremity. Signer Name: Nando Beltrán MD Signed: 04/24/2020 2:07 AM Workstation Name: [id number]
[2020-04-24] MEDS ORDERED: FUROSEMIDE 20 MG TAB PO ONE (02:28)
[2020-04-24 04:26] LABS: Bacteria,Urine 1+ /HPF (Negative); Bilirubin,Urine NEG (Negative); Blood,Urine NEG (Negative); Color,Urine Straw (Yellow); Mucus,Urine FEW /HPF; Protein,Urine <15 mg/dL mg/dL (Negative); Urobilinogen,Urine < 2.0 mg/dL (<2.0)
== END 2020-04-24 04:50 | disposition home or self-care (01) ==
LOC: ED 17:22
DX: M32.8 Other forms of systemic lupus erythematosus (principal); R60.0 Localized edema; M79.10 Myalgia, unspecified site; I10 Essential (primary) hypertension; I25.2 Old myocardial infarction; E11.9 Type 2 diabetes mellitus without complications; F31.9 Bipolar disorder, unspecified; Z98.890 Other specified postprocedural states; Z79.899 Other long term (current) drug therapy; Z91.012 Allergy to eggs; Z88.8 Allergy status to other drugs, medicaments and biological substances
CPT/HCPCS: 36415; 80053; 81001; 82962; 83880; 84703; 85025; 93970; 96372; 99284; J1170; J2930

== ENCOUNTER 2020-05-08 01:17 | Emergency (ER) | payer MEDICAID, MEDICARE ==
[2020-05-08 01:37] VITALS: BP 126/81
--- NOTE | 2020-05-08 01:46 | Emergency Department Report ---
Blank Doc - Documentation Documentation: 40-year-old female with past no history of lupus presenting department complain ing of feeling of a spontaneous lupus flareup with joint pain aches this diffusely located without associated shortness of breath does have some vague chest pain. Also she reports experiencing some vaginal pain of an unknown etiology with occasional white discharge in her urine and increased urinary urgency. Reports no fever, chills, sweats. This initial assessment/diagnostic orders/clinical plan/treatment(s) is/are subject to change based on patients health status, clinical progression and re- assessment by fellow clinical providers in the ED. Further treatment and workup at subsequent clinical providers discretion. Patient/guardian urged not to elope from the ED as their condition may be serious if not clinically assessed and managed. Initial orders include: Urinalysis
== END 2020-05-08 04:00 | disposition left against medical advice (07) ==
LOC: ED 01:17
DX: M32.9 Systemic lupus erythematosus, unspecified (principal); Z53.21 Procedure and treatment not carried out due to patient leaving prior to being seen by health care provider

== ENCOUNTER 2020-05-08 19:42 | Emergency (ER) | payer MEDICARE, MEDICAID ==
--- NOTE | 2020-05-08 20:14 | Event Note ---
ED Screening Note Date of service: 05/08/20 Time: 20:13 ED Screening Note: Patient 40-year-old -[place] female who presents for vaginal bleeding x3 days. Last menstrual cycle 1 month ago. Patient advises not sexually active. Denies abdominal pain denies back pain denies fever or chills there is no nausea vomiting. Denies history of fibroids or ovarian cyst. This initial assessment/diagnostic orders/clinical plan/treatment(s) is/are subject to change based on patients health status, clinical progression and re- assessment by fellow clinical providers in the ED. Further treatment and workup at subsequent clinical providers discretion. Patient/guardian urged not to elope from the ED as their condition may be serious if not clinically assessed and managed. Initial orders include: ua, hcg, cbc
[2020-05-08 20:38] LABS: Basophils # (Auto) 0.1 K/mm3 (0.0-0.1); Basophils % (Auto) 0.8 % (0.0-1.8); Eosinophils # (Auto) 0.1 K/mm3 (0.0-0.4); Eosinophils % (Auto) 0.8 % (0.0-4.3); Hematocrit 33.4 % (30.3-42.9); Hemoglobin 10.7 gm/dl (10.1-14.3); Lymphocytes # (Auto) 2.5 K/mm3 (1.2-5.4); Lymphocytes % (Auto) 29.5 % (13.4-35.0); Mean Corpuscular HGB Conc 32 % (30-34); Mean Corpuscular Volume 70 fl (79-97); Monocytes # (Auto) 0.5 K/mm3 (0.0-0.8); Monocytes % (Auto) 6.5 % (0.0-7.3); Platelet Count 220 K/mm3 (140-440); Red Blood Count 4.76 M/mm3 (3.65-5.03)
[2020-05-08 23:46] LABS: Bilirubin,Urine NEG (Negative); Blood,Urine SM (Negative); Color,Urine Colorless (Yellow); Protein,Urine <15 mg/dL mg/dL (Negative); Urobilinogen,Urine < 2.0 mg/dL (<2.0); WBC,Urine < 1.0 /HPF (0.0-6.0)
[2020-05-09 00:02] LABS: HCG Qualitative,Urine Negative (Negative)
--- NOTE | 2020-05-09 00:20 | Emergency Department Report ---
ED Female HPI - General Chief complaint: Urogenital-Female Stated complaint: VAGINAL BURNING/ITCHING/LUPUS FLARE Time Seen by Provider: 05/09/20 00:15 Source: patient Mode of arrival: Ambulatory Limitations: No Limitations - History of Present Illness Initial comments: Patient 40-year-old -[place] female who presents for vaginal bleeding x3 days. Last menstrual cycle 1 month ago. Patient advises not sexually active. Denies abdominal pain denies back pain denies fever or chills there is no nausea vomiting. Denies history of fibroids or ovarian cyst. Complaint: vaginal discharge - Related Data Home Medications Medication Instructions Recorded Confirmed Last Taken lisinopriL [Lisinopril] 20 mg PO DAILY 10/08/17 09/11/19 11/20/17 10:00 Zolpidem (Nf) [Ambien] 10 mg PO QHS 11/26/17 09/11/19 Unknown Detemir (Nf) [Levemir (Nf)] 60 units SUB-Q HS 11/27/17 09/11/19 1 Day Ago ~09/10/19 Previous Rx's Medication Instructions Recorded Last Taken Type Aspirin [Aspirin BABY CHEW TAB] 81 mg PO QDAY #30 tab.chew 06/12/17 11/20/17 10:00 Rx Insulin Detemir [Levemir Flextouch] 40 unit SQ QHS #4 insuln.pen 04/05/19 1 Day Ago Rx ~09/10/19 Clopidogrel [Plavix] 75 mg PO QDAY #30 tablet 07/20/19 1 Day Ago Rx ~09/10/19 Hydroxychloroquine [Plaquenil] 200 mg PO QDAY #20 tablet 07/20/19 Unknown Rx Insulin Glargine [Lantus VIAL] 50 unit SUB-Q QHS #1 vial 10/06/19 Unknown Rx metroNIDAZOLE [Flagyl] 500 mg PO BID 7 Days #14 tab 02/20/20 Unknown Rx Nitrofurantoin [place]/M-Cryst 100 mg PO Q12HR 10 Days #20 capsule 04/01/20 Unknown Rx [Macrobid CAP] Phenazopyridine [Pyridium] 100 mg PO TID #6 tab 04/01/20 Unknown Rx Prednisone [predniSONE 10 mg 10 mg PO .TAPER #1 tab.ds.pk 04/24/20 Unknown Rx (6-Day Pack, 21 Tabs)] cephALEXin [Keflex] 500 mg PO BID 3 Days #6 capsule 05/09/20 Unknown Rx metroNIDAZOLE [Flagyl] 500 mg PO BID 7 Days #14 tab 05/09/20 Unknown Rx Allergies Allergy/AdvReac Type Severity Reaction Status Date / Time egg Allergy Hives Verified 04/23/20 17:34 tramadol HCl [From Ultram] Allergy Hives Verified 04/23/20 17:34 vancomycin Allergy Hives Verified 04/23/20 17:34 NSAIDS (Non-Steroidal AdvReac Vomiting Verified 04/23/20 17:34 Anti-Inflamma ED Review of Systems ROS: Stated complaint: VAGINAL BURNING/ITCHING/LUPUS FLARE Other details as noted in HPI Constitutional: denies: chills, fever Eyes: denies: eye pain, eye discharge, vision change ENT: denies: ear pain, throat pain Respiratory: denies: cough, shortness of breath, wheezing Cardiovascular: as per HPI Endocrine: no symptoms reported Gastrointestinal: as per HPI Genitourinary: dysuria, discharge (white ) Musculoskeletal: denies: back pain, joint swelling, arthralgia Skin: denies: rash, lesions Neurological: denies: headache, weakness, paresthesias Psychiatric: denies: anxiety, depression Hematological/Lymphatic: denies: easy bleeding, easy bruising ED Past Medical Hx - Past Medical History Previous Medical History?: Yes Hx Hypertension: Yes Hx CVA: No Hx Heart Attack/AMI: Yes (05/22, cardiac stent x1) Hx Congestive Heart Failure: No Hx Diabetes: Yes (type 2) Hx Deep Vein Thrombosis: No Hx Pulmonary Embolism: No Hx GERD: No Hx Liver Disease: No Hx Renal Disease: No Hx Sickle Cell Disease: No Hx Arthritis: No Hx Headaches / Migraines: No Hx Seizures: No Hx Kidney Stones: No 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 iron deficient anemia - Surgical History Past Surgical History?: Yes Hx Coronary Stent: Yes (x1) Hx Breast Surgery: Yes (breast reduction 05/2004) Additional Surgical History: Breast reduction bilateral,excisional surg. for abscess - Social History Smoking Status: Current Every Day Smoker Substance Use Type: Marijuana - Medications Home Medications: Home Medications Medication Instructions Recorded Confirmed Last Taken Type Aspirin [Aspirin BABY CHEW TAB] 81 mg PO QDAY #30 tab.chew 06/12/17 09/11/19 11/20/17 10:00 Rx lisinopriL [Lisinopril] 20 mg PO DAILY 10/08/17 09/11/19 11/20/17 10:00 History Zolpidem (Nf) [Ambien] 10 mg PO QHS 11/26/17 09/11/19 Unknown History Detemir (Nf) [Levemir (Nf)] 60 units SUB-Q HS 11/27/17 09/11/19 1 Day Ago History ~09/10/19 Insulin Detemir [Levemir Flextouch] 40 unit SQ QHS #4 insuln.pen 04/05/19 09/11/19 1 Day Ago Rx ~09/10/19 Clopidogrel [Plavix] 75 mg PO QDAY #30 tablet 07/20/19 09/11/19 1 Day Ago Rx ~09/10/19 Hydroxychloroquine [Plaquenil] 200 mg PO QDAY #20 tablet 07/20/19 09/11/19 Unk nown Rx Insulin Glargine [Lantus VIAL] 50 unit SUB-Q QHS #1 vial 10/06/19 Unknown Rx metroNIDAZOLE [Flagyl] 500 mg PO BID 7 Days #14 tab 02/20/20 Unknown Rx Nitrofurantoin [place]/M-Cryst 100 mg PO Q12HR 10 Days #20 capsule 04/01/20 Unknown Rx [Macrobid CAP] Phenazopyridine [Pyridium] 100 mg PO TID #6 tab 04/01/20 Unknown Rx Prednisone [predniSONE 10 mg 10 mg PO .TAPER #1 tab.ds.pk 04/24/20 Unknown Rx (6-Day Pack, 21 Tabs)] cephALEXin [Keflex] 500 mg PO BID 3 Days #6 capsule 05/09/20 Unknown Rx metroNIDAZOLE [Flagyl] 500 mg PO BID 7 Days #14 tab 05/09/20 Unknown Rx ED Physical Exam - General Limitations: No Limitations General appearance: alert, in no apparent distress - Head Head exam: Present: atraumatic, normocephalic - Eye Eye exam: Present: normal appearance - ENT ENT exam: Present: normal exam - Neck Neck exam: Present: normal inspection - Respiratory Respiratory exam: Present: normal lung sounds bilaterally. Absent: respiratory distress - Cardiovascular Cardiovascular Exam: Present: regular rate, normal rhythm. Absent: systolic murmur, diastolic murmur, rubs, gallop - GI/Abdominal GI/Abdominal exam: Present: soft, normal bowel sounds. Absent: distended, tenderness, guarding, rebound, rigid, bruit, hernia - Rectal Rectal exam: Present: deferred - External exam: Present: other (deferred by patient ) - Extremities Exam Extremities exam: Present: normal inspection - Back Exam Back exam: Present: normal inspection, full ROM. Absent: tenderness, CVA tenderness (R), CVA tenderness (L), vertebral tenderness - Neurological Exam Neurological exam: Present: alert, oriented X3, CN II-XII intact, normal gait - Psychiatric Psychiatric exam: Present: normal affect, normal mood - Skin Skin exam: Present: warm, dry, intact, normal color. Absent: rash ED Course Vital Signs 05/08/20 20:08 Temperature 98.2 F Pulse Rate 92 H Respiratory 16 Rate Blood Pressure 147/91 O2 Sat by Pulse 100 Oximetry ED Medical Decision Making - Lab Data Result diagrams: 05/08/20 20:27 Labs 05/08/20 05/08/20 20:27 Unknown WBC 8.5 RBC 4.76 Hgb 10.7 Hct 33.4 MCV 70 L MCH 23 L MCHC 32 RDW 18.0 H Plt Count 220 Lymph % (Auto) 29.5 [place] % (Auto) 6.5 Eos % (Auto) 0.8 Baso % (Auto) 0.8 Lymph # (Auto) 2.5 [place] # (Auto) 0.5 Eos # (Auto) 0.1 Baso # (Auto) 0.1 Seg Neutrophils % 62.4 Seg Neutrophils # 5.3 Urine Color Colorless Urine Turbidity Clear Urine pH 6.0 Ur Specific [place] 1.003 Urine Protein <15 mg/dl Urine Glucose (UA) 150 Urine Ketones Neg Urine Blood Sm Urine Nitrite Neg Urine Bilirubin Neg Urine Urobilinogen < 2.0 Ur Leukocyte Esterase Neg Urine WBC (Auto) < 1.0 Urine RBC (Auto) 2.0 U Epithel Cells (Auto) < 1.0 Urine HCG, Qual Negative - Medical Decision Making ua noted, hcg neg, abd exam is normal, there is no fever or chills no n/v plan: tx for vaginitis, pt will follow up with pcp in 2-3 days, pt verbalized agreement and understanding of discharge plan. Critical care attestation.: If time is entered above; I have spent that time in minutes in the direct care of this critically ill patient, excluding procedure time. ED Disposition Clinical Impression: Dysuria Vaginitis Qualifiers: Chronicity: acute Qualified Code(s): N76.0 - Acute vaginitis Disposition: TO HOME OR SELFCARE Is pt being admited?: No Does the pt Need Aspirin: No Condition: Stable Instructions: Atrophic Vaginitis Prescriptions: metroNIDAZOLE [Flagyl] 500 mg PO BID 7 Days #14 tab cephALEXin [Keflex] 500 mg PO BID 3 Days #6 capsule Referrals: [facility] [Provider Group] - 3-5 Days Forms: Work/School Release Form(ED) Time of Disposition: 00:22
[2020-05-09 02:01] VITALS: BP 134/78
== END 2020-05-09 02:01 | disposition home or self-care (01) ==
LOC: ED 19:42
DX: N76.0 Acute vaginitis (principal); R30.0 Dysuria; I25.2 Old myocardial infarction; I10 Essential (primary) hypertension; E11.9 Type 2 diabetes mellitus without complications; F31.9 Bipolar disorder, unspecified; F17.200 Nicotine dependence, unspecified, uncomplicated; F12.10 Cannabis abuse, uncomplicated; Z98.890 Other specified postprocedural states; Z79.4 Long term (current) use of insulin; Z79.899 Other long term (current) drug therapy; Z88.8 Allergy status to other drugs, medicaments and biological substances; Z91.012 Allergy to eggs
CPT/HCPCS: 36415; 81001; 81025; 85025

== ENCOUNTER 2020-05-16 04:34 | Emergency (ER) | payer MEDICARE ==
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
[2020-05-16 06:17] VITALS: BP 146/92
--- NOTE | 2020-05-16 07:20 | Emergency Department Report ---
ED Back Pain/Injury HPI - General Chief Complaint: Back Pain/Injury Stated Complaint: LOWER BACK PAIN Time Seen by Provider: 05/16/20 07:11 Source: patient Limitations: No Limitations - History of Present Illness Initial Comments: Patient is a 40-year-old female presents emergency room with complaints of acute on chronic back pain for 4 days. She states that the pain is on her right lower back and radiates down her right leg. She denies any fall or injury. She denies any fever, nausea, vomiting, diarrhea, numbness, weakness, bowel or bladder incontinence, any other symptoms. She denies any urinary symptoms. She has a history of lupus, diabetes, hypertension, CAD. Allergy to tramadol and vancomycin, NSAIDs because of vomiting. she has had chronic back pain for mult iple years and has been seen in the ED on several visits for this complaint. she is not seeing orthopedic or spine. - Related Data Home Medications Medication Instructions Recorded Confirmed Last Taken lisinopriL [Lisinopril] 20 mg PO DAILY 10/08/17 09/11/19 11/20/17 10:00 Zolpidem (Nf) [Ambien] 10 mg PO QHS 11/26/17 09/11/19 Unknown Detemir (Nf) [Levemir (Nf)] 60 units SUB-Q HS 11/27/17 09/11/19 1 Day Ago ~09/10/19 Previous Rx's Medication Instructions Recorded Last Taken Type Aspirin [Aspirin BABY CHEW TAB] 81 mg PO QDAY #30 tab.chew 06/12/17 11/20/17 10:00 Rx Insulin Detemir [Levemir Flextouch] 40 unit SQ QHS #4 insuln.pen 04/05/19 1 Day Ago Rx ~09/10/19 Clopidogrel [Plavix] 75 mg PO QDAY #30 tablet 07/20/19 1 Day Ago Rx ~09/10/19 Hydroxychloroquine [Plaquenil] 200 mg PO QDAY #20 tablet 07/20/19 Unknown Rx Insulin Glargine [Lantus VIAL] 50 unit SUB-Q QHS #1 vial 10/06/19 Unknown Rx metroNIDAZOLE [Flagyl] 500 mg PO BID 7 Days #14 tab 02/20/20 Unknown Rx Nitrofurantoin [place]/M-Cryst 100 mg PO Q12HR 10 Days #20 capsule 04/01/20 Unknown Rx [Macrobid CAP] Phenazopyridine [Pyridium] 100 mg PO TID #6 tab 04/01/20 Unknown Rx Prednisone [predniSONE 10 mg 10 mg PO .TAPER #1 tab.ds.pk 04/24/20 Unknown Rx (6-Day Pack, 21 Tabs)] cephALEXin [Keflex] 500 mg PO BID 3 Days #6 capsule 05/09/20 Unknown Rx metroNIDAZOLE [Flagyl] 500 mg PO BID 7 Days #14 tab 05/09/20 Unknown Rx Acetaminophen [Tylenol] 650 mg PO Q8HR PRN #20 capsule 05/16/20 Unknown Rx Menthol/Camphor [[place] 1 applicatio TP BID #18 oint...g. 05/16/20 Unknown Rx Ointment] Allergies Allergy/AdvReac Type Severity Reaction Status Date / Time egg Allergy Hives Verified 04/23/20 17:34 tramadol HCl [From Ultram] Allergy Hives Verified 04/23/20 17:34 vancomycin Allergy Hives Verified 04/23/20 17:34 NSAIDS (Non-Steroidal AdvReac Vomiting Verified 04/23/20 17:34 Anti-Inflamma ED Review of Systems ROS: Stated complaint: LOWER BACK PAIN Other details as noted in HPI Comment: All other systems reviewed and negative ED Past Medical Hx - Past Medical History Previous Medical History?: Yes Hx Hypertension: Yes Hx CVA: No Hx Heart Attack/AMI: Yes (05/22, cardiac stent x1) Hx Congestive Heart Failure: No Hx Diabetes: Yes (type 2) Hx Deep Vein Thrombosis: No Hx Pulmonary Embolism: No Hx GERD: No Hx Liver Disease: No Hx Renal Disease: No Hx Sickle Cell Disease: No Hx Arthritis: No Hx Headaches / Migraines: No Hx Seizures: No Hx Kidney Stones: No 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 iron deficient anemia - Surgical History Past Surgical History?: Yes Hx Coronary Stent: Yes (x1) Hx Breast Surgery: Yes (breast reduction 05/2004) Additional Surgical History: Breast reduction bilateral,excisional surg. for abscess - Social History Smoking Status: Current Every Day Smoker Substance Use Type: Marijuana - Medications Home Medications: Home Medications Medication Instructions Recorded Confirmed Last Taken Type Aspirin [Aspirin BABY CHEW TAB] 81 mg PO QDAY #30 tab.chew 06/12/17 09/11/19 11/20/17 10:00 Rx lisinopriL [Lisinopril] 20 mg PO DAILY 10/08/17 09/11/19 11/20/17 10:00 History Zolpidem (Nf) [Ambien] 10 mg PO QHS 11/26/17 09/11/19 Unknown History Detemir (Nf) [Levemir (Nf)] 60 units SUB-Q HS 11/27/17 09/11/19 1 Day Ago History ~09/10/19 Insulin Detemir [Levemir Flextouch] 40 unit SQ QHS #4 insuln.pen 04/05/19 09/11/19 1 Day Ago Rx ~09/10/19 Clopidogrel [Plavix] 75 mg PO QDAY #30 tablet 07/20/19 09/11/19 1 Day Ago Rx ~09/10/19 Hydroxychloroquine [Plaquenil] 200 mg PO QDAY #20 tablet 07/20/19 09/11/19 Unknown Rx Insulin Glargine [Lantus VIAL] 50 unit SUB-Q QHS #1 vial 10/06/19 Unknown Rx metroNIDAZOLE [Flagyl] 500 mg PO BID 7 Days #14 tab 02/20/20 Unknown Rx Nitrofurantoin [place]/M-Cryst 100 mg PO Q12HR 10 Days #20 capsule 04/01/20 Unknown Rx [Macrobid CAP] Phenazopyridine [Pyridium] 100 mg PO TID #6 tab 04/01/20 Unknown Rx Prednisone [predniSONE 10 mg 10 mg PO .TAPER #1 tab.ds.pk 04/24/20 Unknown Rx (6-Day Pack, 21 Tabs)] cephALEXin [Keflex] 500 mg PO BID 3 Days #6 capsule 05/09/20 Unknown Rx metroNIDAZOLE [Flagyl] 500 mg PO BID 7 Days #14 tab 05/09/20 Unknown Rx Acetaminophen [Tylenol] 650 mg PO Q8HR PRN #20 capsule 05/16/20 Unknown Rx Menthol/Camphor [[place] 1 applicatio TP BID #18 oint...g. 05/16/20 Unknown Rx Ointment] ED Physical Exam - General Limitations: No Limitations General appearance: alert, in no apparent distress - Head Head exam: Present: atraumatic, normocephalic - Eye Eye exam: Present: normal appearance - ENT ENT exam: Present: mucous membranes moist - Neck Neck exam: Present: normal inspection, full ROM. Absent: tenderness - Respiratory Respiratory exam: Present: normal lung sounds bilaterally. Absent: respiratory distress, wheezes, rales, rhonchi, stridor, chest wall tenderness, accessory muscle use, decreased breath sounds, prolonged expiratory - Cardiovascular Cardiovascular Exam: Present: regular rate, normal rhythm, normal heart sounds. Absent: systolic murmur, diastolic murmur, rubs, gallop - Back Exam Back exam: Present: normal inspection, full ROM, paraspinal tenderness (right sided lumbar paraspinal muscular ttp, no midline C-spine, T-spine or L-spine ttp, no step offs, no deformities). Absent: vertebral tenderness - Neurological Exam Neurological exam: Present: alert, oriented X3, CN II-XII intact, normal gait. Absent: motor sensory deficit - Psychiatric Psychiatric exam: Present: normal affect, normal mood - Skin Skin exam: Present: warm, dry, intact ED Course Vital Signs 05/16/20 06:05 Temperature 98.4 F Pulse Rate 77 Respiratory 18 Rate Blood Pressure 146/92 O2 Sat by Pulse 97 Oximetry ED Medical Decision Making - Medical Decision Making Patient is a 40-year-old female presents emergency room with complaints of acute on chronic back pain for 4 days. She states that the pain is on her right lower back and radiates down her right leg. She denies any fall or injury. She denies any fever, nausea, vomiting, diarrhea, numbness, weakness, bowel or bladder incontinence, any other symptoms. She denies any urinary symptoms. She has a history of lupus, diabetes, hypertension, CAD. Allergy to tramadol and vancomycin, NSAIDs because of vomiting. she has had chronic back pain for multiple years and has been seen in the ED on several visits for this complaint. she is not seeing orthopedic or spine. VSS. on exam:right sided lumbar paraspinal muscular ttp, no midline C-spine, T-spine or L-spine ttp, no step offs, no deformities, no focal neuro deficits on exam, normal gait. Patient is nontoxic-appearing, no acute distress. Symptoms could likely be related to sciatica versus chronic back pain versus muscle strain. Patient given prescription for Tylenol and [place] balm ointment. Patient given a handout on sciatica stretches. Patient given orthopedic/spine follow-up. Patient also referred to primary care doctor. She has no red flag warning signs of back pain, no trauma, no unexplained weight loss, no neuro deficits, age is not greater than 50, no fever, no IV drug use, no history of cancer. She has no saddle numbness, no neuro deficits, do not suspect, medullary is or cauda equina. Her symptoms and examination are not consistent with aortic dissection, BP is stable, no ripping sensation, no CP, abd pain, SOB. advised pt Please use medication as prescribed. Please do the stretches for sciatica. Follow-up with a primary care doctor. Follow-up with orthopedic/spine doctor. Return to emergency room for any new or worsening symptoms. Critical care attestation.: If time is entered above; I have spent that time in minutes in the direct care of this critically ill patient, excluding procedure time. ED Disposition Clinical Impression: Low back pain Qualifiers: Chronicity: acute Back pain laterality: right Sciatica presence: with sciatica Sciatica laterality: sciatica of right side Qualified Code(s): M54.41 - Lumbago with sciatica, right side Disposition: TO HOME OR SELFCARE Is pt being admited?: No Does the pt Need Aspirin: No Condition: Stable Instructions: Sciatica, Chronic Back Pain, [id number] Additional Instructions: Please use medication as prescribed. Please do the stretches for sciatica. Follow-up with a primary care doctor. Follow-up with orthopedic/spine doctor. Return to emergency room for any new or worsening symptoms. Prescriptions: Menthol/Camphor [[place] Ointment] 1 applicatio TP BID #18 oint...g. Acetaminophen [Tylenol] 650 mg PO Q8HR PRN #20 capsule PRN Reason: pain Referrals: PRIMARY CAREMD [Primary Care Provider] - 2-3 Days [facility] [Provider Group] - 2-3 Days GEOVANI GOODWIN II, MD [Staff Physician] - 2-3 Days Time of Disposition: 07:18 Print Language: YI
== END 2020-05-16 07:30 | disposition home or self-care (01) ==
LOC: ED 04:34
DX: M54.5 Low back pain (principal); M79.604 Pain in right leg; I25.2 Old myocardial infarction; I10 Essential (primary) hypertension; E11.9 Type 2 diabetes mellitus without complications; F31.9 Bipolar disorder, unspecified; F17.200 Nicotine dependence, unspecified, uncomplicated; F12.10 Cannabis abuse, uncomplicated; Z98.890 Other specified postprocedural states; Z79.4 Long term (current) use of insulin; Z79.899 Other long term (current) drug therapy; Z91.012 Allergy to eggs; Z88.8 Allergy status to other drugs, medicaments and biological substances
CPT/HCPCS: 99282

== ENCOUNTER 2020-05-20 03:52 | Emergency (ER) | payer MEDICARE ==
[2020-05-20 04:41] LABS: Basophils % (Auto) 0.5 % (0.0-1.8); Eosinophils # (Auto) 0.1 K/mm3 (0.0-0.4); Hematocrit 32.7 % (30.3-42.9); Hemoglobin 10.5 gm/dl (10.1-14.3); Lymphocytes # (Auto) 2.3 K/mm3 (1.2-5.4); Lymphocytes % (Auto) 27.7 % (13.4-35.0); Mean Corpuscular HGB Conc 32 % (30-34); Mean Corpuscular Volume 71 fl (79-97); Monocytes # (Auto) 0.6 K/mm3 (0.0-0.8); Monocytes % (Auto) 6.8 % (0.0-7.3); Platelet Count 360 K/mm3 (140-440); Red Blood Count 4.64 M/mm3 (3.65-5.03); Red Cell Distribution Width 18.2 % (13.2-15.2)
[2020-05-20 04:59] LABS: Alanine Aminotransferase 12 units/L (7-56); Blood Urea Nitrogen 6 mg/dL (7-17); Calcium 9.3 mg/dL (8.4-10.2); Hemolysis Index 0
[2020-05-20 05:05] LABS: BUN/Creatinine Ratio 10
[2020-05-20 09:10] LABS: Bilirubin,Urine NEG (Negative); Blood,Urine NEG (Negative); Color,Urine Yellow (Yellow); HCG Qualitative,Urine Negative (Negative); Mucus,Urine FEW /HPF; Protein,Urine <15 mg/dL mg/dL (Negative); Urobilinogen,Urine < 2.0 mg/dL (<2.0)
[2020-05-20] MEDS ORDERED: oxyCODONE /ACETAMINOPHEN 5-325MG TAB PO ONE (09:15)
[2020-05-20] MEDS ORDERED: ONDANSETRON 4 MG ODT TAB PO ONE (09:15)
--- NOTE | 2020-05-20 09:17 | Emergency Department Report ---
ED Abdominal Pain HPI - General Chief Complaint: Abdominal Pain Stated Complaint: LOWER RIGHT ABD PAIN/BACK PAIN Time Seen by Provider: 05/20/20 08:47 Source: patient, old records reviewed Mode of arrival: Ambulatory Limitations: No Limitations - History of Present Illness Initial Comments: 40-year-old female the past medical history of type 2 diabetes, CAD with stenting, bipolar disorder, schizoaffective disorder, lupus, and chronic pain currently on Suboxone prescribed by [facility] presents to the hospital with complaints of 3 days of right sided back pain radiating to right lower quadrant. Positive associated nausea. Pain is constant worse with palpation and movement. She states her urine has a strong odor and dark discoloration and has some discomfort with urination. Patient has multiple frequent ER visits for pain related complaints and has been here several times this month alone. Patient was seen here on the with complaints of similar pain. No recent imaging has been obtained as per medical record Severity scale (0 -10): 8 - Related Data Home Medications Medication Instructions Recorded Confirmed Last Taken lisinopriL [Lisinopril] 20 mg PO DAILY 10/08/17 09/11/19 11/20/17 10:00 Zolpidem (Nf) [Ambien] 10 mg PO QHS 11/26/17 09/11/19 Unknown Detemir (Nf) [Levemir (Nf)] 60 units SUB-Q HS 11/27/17 09/11/19 1 Day Ago ~09/10/19 Previous Rx's Medication Instructions Recorded Last Taken Type Aspirin [Aspirin BABY CHEW TAB] 81 mg PO QDAY #30 tab.chew 06/12/17 11/20/17 10:00 Rx Insulin Detemir [Levemir Flextouch] 40 unit SQ QHS #4 insuln.pen 04/05/19 1 Day Ago Rx ~09/10/19 Clopidogrel [Plavix] 75 mg PO QDAY #30 tablet 07/20/19 1 Day Ago Rx ~09/10/19 Hydroxychloroquine [Plaquenil] 200 mg PO QDAY #20 tablet 07/20/19 Unknown Rx Insulin Glargine [Lantus VIAL] 50 unit SUB-Q QHS #1 vial 10/06/19 Unknown Rx metroNIDAZOLE [Flagyl] 500 mg PO BID 7 Days #14 tab 02/20/20 Unknown Rx Nitrofurantoin [place]/M-Cryst 100 mg PO Q12HR 10 Days #20 capsule 04/01/20 Unknown Rx [Macrobid CAP] Phenazopyridine [Pyridium] 100 mg PO TID #6 tab 04/01/20 Unknown Rx Prednisone [predniSONE 10 mg 10 mg PO .TAPER #1 tab.ds.pk 04/24/20 Unknown Rx (6-Day Pack, 21 Tabs)] cephALEXin [Keflex] 500 mg PO BID 3 Days #6 capsule 05/09/20 Unknown Rx metroNIDAZOLE [Flagyl] 500 mg PO BID 7 Days #14 tab 05/09/20 Unknown Rx Acetaminophen [Tylenol] 650 mg PO Q8HR PRN #20 capsule 05/16/20 Unknown Rx Menthol/Camphor [[place] 1 applicatio TP BID #18 oint...g. 05/16/20 Unknown Rx Ointment] Docusate Sodium [Colace] 100 mg PO BID PRN #20 capsule 05/20/20 Unknown Rx Ondansetron [Zofran Odt] 4 mg PO Q8HR PRN #20 tab.rapdis 05/20/20 Unknown Rx Polyethylene Glycol 3350 [Miralax] 17 gm PO DAILY PRN #7 dose 05/20/20 Unknown Rx Allergies Allergy/AdvReac Type Severity Reaction Status Date / Time egg Allergy Hives Verified 04/23/20 17:34 tramadol HCl [From Ultram] Allergy Hives Verified 04/23/20 17:34 vancomycin Allergy Hives Verified 04/23/20 17:34 NSAIDS (Non-Steroidal AdvReac Vomiting Verified 04/23/20 17:34 Anti-Inflamma ED Review of Systems ROS: Stated complaint: LOWER RIGHT ABD PAIN/BACK PAIN Other details as noted in HPI Comment: All other systems reviewed and negative ED Past Medical Hx - Past Medical History Previous Medical History?: Yes Hx Hypertension: Yes Hx CVA: No Hx Heart Attack/AMI: Yes (05/22, cardiac stent x1) Hx Congestive Heart Failure: No Hx Diabetes: Yes (type 2) Hx Deep Vein Thrombosis: No Hx Pulmonary Embolism: No Hx GERD: No Hx Liver Disease: No Hx Renal Disease: No Hx Sickle Cell Disease: No Hx Arthritis: No Hx Headaches / Migraines: No Hx Seizures: No Hx Kidney Stones: No 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 iron deficient anemia - Surgical History Past Surgical History?: Yes Hx Coronary Stent: Yes (x1) Hx Breast Surgery: Yes (breast reduction 05/2004) Additional Surgical History: Breast reduction bilateral,excisional surg. for abscess - Social History Smoking Status: Current Every Day Smoker Substance Use Type: Marijuana - Medications Home Medications: Home Medications Medication Instructions Recorded Confirmed Last Taken Type Aspirin [Aspirin BABY CHEW TAB] 81 mg PO QDAY #30 tab.chew 06/12/17 09/11/19 10:00 Rx lisinopriL [Lisinopril] 20 mg PO DAILY 10/08/17 09/11/19 11/20/17 10:00 History Zolpidem (Nf) [Ambien] 10 mg PO QHS 11/26/17 09/11/19 Unknown History Detemir (Nf) [Levemir (Nf)] 60 units SUB-Q HS 11/27/17 09/11/19 1 Day Ago History ~09/10/19 Insulin Detemir [Levemir Flextouch] 40 unit SQ QHS #4 insuln.pen 04/05/19 09/11/19 1 Day Ago Rx ~09/10/19 Clopidogrel [Plavix] 75 mg PO QDAY #30 tablet 07/20/19 09/11/19 1 Day Ago Rx ~09/10/19 Hydroxychloroquine [Plaquenil] 200 mg PO QDAY #20 tablet 07/20/19 09/11/19 Unknown Rx Insulin Glargine [Lantus VIAL] 50 unit SUB-Q QHS #1 vial 10/06/19 Unknown Rx metroNIDAZOLE [Flagyl] 500 mg PO BID 7 Days #14 tab 02/20/20 Unknown Rx Nitrofurantoin [place]/M-Cryst 100 mg PO Q12HR 10 Days #20 capsule 04/01/20 Unk nown Rx [Macrobid CAP] Phenazopyridine [Pyridium] 100 mg PO TID #6 tab 04/01/20 Unknown Rx Prednisone [predniSONE 10 mg 10 mg PO .TAPER #1 tab.ds.pk 04/24/20 Unknown Rx (6-Day Pack, 21 Tabs)] cephALEXin [Keflex] 500 mg PO BID 3 Days #6 capsule 05/09/20 Unknown Rx metroNIDAZOLE [Flagyl] 500 mg PO BID 7 Days #14 tab 05/09/20 Unknown Rx Acetaminophen [Tylenol] 650 mg PO Q8HR PRN #20 capsule 05/16/20 Unknown Rx Menthol/Camphor [[place] 1 applicatio TP BID #18 oint...g. 05/16/20 Unknown Rx Ointment] Docusate Sodium [Colace] 100 mg PO BID PRN #20 capsule 05/20/20 Unknown Rx Ondansetron [Zofran Odt] 4 mg PO Q8HR PRN #20 tab.rapdis 05/20/20 Unknown Rx Polyethylene Glycol 3350 [Miralax] 17 gm PO DAILY PRN #7 dose 05/20/20 Unknown Rx ED Physical Exam - General Limitations: No Limitations - Other Other exam information: General: No acute distress Head: Atraumatic Eyes: normal appearance ENT: Moist mucous membranes Neck: Normal appearance, no midline tenderness Chest: Clear to auscultation bilaterally CV: Regular rate and rhythm Abdomen: Soft, normal bowel sounds, right lower quadrant tenderness, no rebound or guarding Back: Normal inspection, right flank tenderness, right buttock tenderness with palpation Extremity: Normal inspection, full range of motion Neuro: Alert O x 3, no facial asymmetry, speech clear, no gross motor sensory deficit Psych: Appropriate behavior Skin: No rash ED Course Vital Signs 05/20/20 05/20/20 05/20/20 04:06 09:04 09:52 Temperature 98.0 F Pulse Rate 82 69 55 L Respiratory 18 16 16 Rate Blood Pressure 104/63 Blood Pressure 128/86 127/63 [Right] O2 Sat by Pulse 95 98 100 Oximetry ED Medical Decision Making - Lab Data Result diagrams: 05/20/20 04:16 05/20/20 04:16 Lab Results 05/20/20 05/20/20 05/20/20 Range/Units 04:16 04:16 Unknown WBC 8.2 (4.5-11.0) K/mm3 RBC 4.64 (3.65-5.03) M/mm3 Hgb 10.5 (10.1-14.3) gm/dl Hct 32.7 (30.3-42.9) % MCV 71 L (79-97) fl MCH 23 L (28-32) pg MCHC 32 (30-34) % RDW 18.2 H (13.2-15.2) % Plt Count 360 (140-440) K/mm3 Lymph % (Auto) 27.7 (13.4-35.0) % [place] % (Auto) 6.8 (0.0-7.3) % Eos % (Auto) 1.0 (0.0-4.3) % Baso % (Auto) 0.5 (0.0-1.8) % Lymph # (Auto) 2.3 (1.2-5.4) K/mm3 [place] # (Auto) 0.6 (0.0-0.8) K/mm3 Eos # (Auto) 0.1 (0.0-0.4) K/mm3 Baso # (Auto) 0.0 (0.0-0.1) K/mm3 Seg Neutrophils % 64.0 (40.0-70.0) % Seg Neutrophils # 5.2 (1.8-7.7) K/mm3 Sodium 136 L (137-145) mmol/L Potassium 4.2 (3.6-5.0) mmol/L Chloride 102.3 (98-107) mmol/L Carbon Dioxide 23 (22-30) mmol/L Anion Gap 15 mmol/L BUN 6 L (7-17) mg/dL Creatinine 0.6 (0.6-1.2) mg/dL Estimated GFR > 60 ml/min BUN/Creatinine Ratio 10 % Glucose 228 H (65-100) mg/dL Calcium 9.3 (8.4-10.2) mg/dL Total Bilirubin 0.30 (0.1-1.2) mg/dL AST 15 (5-40) units/L ALT 12 (7-56) units/L Alkaline Phosphatase 88 (35-129) units/L Total Protein 6.5 (6.3-8.2) g/dL Albumin 4.0 (3.9-5) g/dL Albumin/Globulin Ratio 1.6 % Urine Color Yellow (Yellow) Urine Turbidity Clear (Clear) Urine pH 6.0 (5.0-7.0) Ur Specific [place] 1.012 (1.003-1.030) Urine Protein <15 mg/dl (Negative) mg/dL Urine Glucose (UA) 50 (Negative) mg/dL Urine Ketones Neg (Negative) mg/dL Urine Blood Neg (Negative) Urine Nitrite Neg (Negative) Urine Bilirubin Neg (Negative) Urine Urobilinogen < 2.0 (<2.0) mg/dL Ur Leukocyte Esterase Neg (Negative) Urine WBC (Auto) 1.0 (0.0-6.0) /HPF Urine RBC (Auto) 1.0 (0.0-6.0) /HPF U Epithel Cells (Auto) 5.0 (0-13.0) /HPF Urine Mucus Few /HPF Urine HCG, Qual (Negative) 05/20/20 Range/Units Unknown WBC (4.5-11.0) K/mm3 RBC (3.65-5.03) M/mm3 Hgb (10.1-14.3) gm/dl Hct (30.3-42.9) % MCV (79-97) fl MCH (28-32) pg MCHC (30-34) % RDW (13.2-15.2) % Plt Count (140-440) K/mm3 Lymph % (Auto) (13.4-35.0) % [place] % (Auto) (0.0-7.3) % Eos % (Auto) (0.0-4.3) % Baso % (Auto) (0.0-1.8) % Lymph # (Auto) (1.2-5.4) K/mm3 [place] # (Auto) (0.0-0.8) K/mm3 Eos # (Auto) (0.0-0.4) K/mm3 Baso # (Auto) (0.0-0.1) K/mm3 Seg Neutrophils % (40.0-70.0) % Seg Neutrophils # (1.8-7.7) K/mm3 Sodium (137-145) mmol/L Potassium (3.6-5.0) mmol/L Chloride (98-107) mmol/L Carbon Dioxide (22-30) mmol/L Anion Gap mmol/L BUN (7-17) mg/dL Creatinine (0.6-1.2) mg/dL Estimated GFR ml/min BUN/Creatinine Ratio % Glucose (65-100) mg/dL Calcium (8.4-10.2) mg/dL Total Bilirubin (0.1-1.2) mg/dL AST (5-40) units/L ALT (7-56) units/L Alkaline Phosphatase (35-129) units/L Total Protein (6.3-8.2) g/dL Albumin (3.9-5) g/dL Albumin/Globulin Ratio % Urine Color (Yellow) Urine Turbidity (Clear) Urine pH (5.0-7.0) Ur Specific [place] (1.003-1.030) Urine Protein (Negative) mg/dL Urine Glucose (UA) (Negative) mg/dL Urine Ketones (Negative) mg/dL Urine Blood (Negative) Urine Nitrite (Negative) Urine Bilirubin (Negative) Urine Urobilinogen (<2.0) mg/dL Ur Leukocyte Esterase (Negative) Urine WBC (Auto) (0.0-6.0) /HPF Urine RBC (Auto) (0.0-6.0) /HPF U Epithel Cells (Auto) (0-13.0) /HPF Urine Mucus /HPF Urine HCG, Qual Negative (Negative) - Radiology Data Radiology results: report reviewed ct abd and pelvis without contrast: Bilateral nephrolithiasis (2-3 punctate calyceal stones in both kidneys inferiorly). No ureter stones or hydronephrosis. Mild to moderate constipation. No acute inflammatory process - Medical Decision Making Once again patient presents to the ER for pain related complaint. Labs UA unremarkable. negative. CT abdomen pelvis shows nephrolithiasis and mild to moderate constipation without ureteral stones or inflammation. Patient was provided 1 dose of Percocet here. Patient however, is a chronic pain patient currently on Suboxone which makes typical narcotics prescribed in the ED unaffected for managing her pain. Patient's chronic pain management is beyond the scope of the ED and patient will benefit from reevaluation by her pain specialist and adjustment of her meds. Patient will be provided Zofran and encouraged to continue Tylenol as needed for breakthrough pain and stool softener. There is no acute surgical or infectious etiology identified in the ED today. Critical Care Time: No Critical care attestation.: If time is entered above; I have spent that time in minutes in the direct care of this critically ill patient, excluding procedure time. 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 Continue current Suboxone and Tylenol as needed for breakthrough pain. Follow-up with your primary care doctor as well as your pain specialist for continued pain management. Return if symptoms worsen as indicated by your discharge instructions. Prescriptions: Docusate Sodium [Colace] 100 mg PO BID PRN #20 capsule PRN Reason: Constipation Polyethylene Glycol 3350 [Miralax] 17 gm PO DAILY PRN #7 dose PRN Reason: Constipation Ondansetron [Zofran Odt] 4 mg PO Q8HR PRN #20 tab.rapdis PRN Reason: Nausea And Vomiting Referrals: PRIMARY CARE,MD [Primary Care Provider] - 3-5 Days [facility] [Outside] - 3-5 Days your, pain mangement doctor [Other] - 3-5 Days Time of Disposition: 10:41
[2020-05-20 09:52] VITALS: BP 127/63
--- NOTE | 2020-05-20 11:47 | Cat Scan Report ---
CT ABDOMEN AND PELVIS WITHOUT CONTRAST HISTORY: right back and rlq pain COMPARISON: 09/11/2019 TECHNIQUE: Axial CT images were obtained through the abdomen and pelvis without IV contrast. Sagittal and coronal reformatted images. All CT scans at this location are performed using CT dose reduction for ALARA by means of automated exposure control. FINDINGS: CT ABDOMEN: Lung Bases: Clear. Liver: No significant abnormality. Biliary: No significant abnormality. Spleen: No significant abnormality. Unenlarged. Pancreas: No significant abnormality. Adrenals: No significant abnormality. Kidneys: Both kidneys are normal size, contour and position. No cystic disease or mass. There are 2 o r 3 punctate calyceal stones in both kidneys inferiorly. No ureteral stones or hydronephrosis is iden tified. Lymphatics: No lymphadenopathy. Vasculature: No significant abnormality. Bowel/Peritoneum: There is moderate fecal matter throughout the length of the colon. No evidence for obstruction or focal inflammation. No free fluid or free air. Normal appendix. CT PELVIS: : The uterus, adnexa and bladder are unremarkable. Osseous Structures: Moderate to severe degenerative disc disease at L5-S1 appears stable. Additional Findings: None IMPRESSION: Bilateral nephrolithiasis as described. No ureteral stones or hydronephrosis is identified. Mild to moderate constipation. No acute inflammatory process is appreciated. Signer Name: Kong Kunz Jr, MD Signed: 05/20/2020 10:09 AM Workstation Name: [id number]
== END 2020-05-20 11:03 | disposition home or self-care (01) ==
LOC: ED 03:52
DX: N20.0 Calculus of kidney (principal); K59.00 Constipation, unspecified; G89.29 Other chronic pain; R10.31 Right lower quadrant pain; I10 Essential (primary) hypertension; I25.2 Old myocardial infarction; E11.9 Type 2 diabetes mellitus without complications; F25.0 Schizoaffective disorder, bipolar type; F17.200 Nicotine dependence, unspecified, uncomplicated; F12.90 Cannabis use, unspecified, uncomplicated; Z98.890 Other specified postprocedural states; Z79.899 Other long term (current) drug therapy; Z88.8 Allergy status to other drugs, medicaments and biological substances; Z91.012 Allergy to eggs; Z78.9 Other specified health status
CPT/HCPCS: 36415; 74176; 80053; 81001; 81025; 85025; Q0162

== ENCOUNTER 2020-06-11 01:49 | Emergency (ER) | payer MEDICARE, MEDICAID ==
[2020-06-11 01:53] VITALS: BP 173/95
[2020-06-11 03:09] LABS: Basophils % (Auto) 0.3 % (0.0-1.8); Eosinophils # (Auto) 0.1 K/mm3 (0.0-0.4); Eosinophils % (Auto) 0.7 % (0.0-4.3); Hematocrit 32.9 % (30.3-42.9); Hemoglobin 10.3 gm/dl (10.1-14.3); Lymphocytes # (Auto) 2.2 K/mm3 (1.2-5.4); Lymphocytes % (Auto) 21.6 % (13.4-35.0); Mean Corpuscular HGB Conc 31 % (30-34); Mean Corpuscular Volume 72 fl (79-97); Monocytes # (Auto) 0.5 K/mm3 (0.0-0.8); Monocytes % (Auto) 5.4 % (0.0-7.3); Platelet Count 303 K/mm3 (140-440); Red Cell Distribution Width 18.8 % (13.2-15.2)
[2020-06-11 03:10] LABS: Alanine Aminotransferase 11 units/L (7-56); Albumin 4.4 g/dL (3.9-5); Blood Urea Nitrogen 10 mg/dL (7-17); Hemolysis Index 8
[2020-06-11 03:11] LABS: BUN/Creatinine Ratio 14
--- NOTE | 2020-06-11 03:34 | Emergency Department Report ---
ED Abdominal Pain HPI - General Chief Complaint: Abdominal Pain Stated Complaint: ABDOMINAL PAIN/VOMITING Time Seen by Provider: 06/11/20 03:08 Source: patient Mode of arrival: Ambulatory Limitations: No Limitations - History of Present Illness Initial Comments: pt is a 40 y/o female who presents for RUQ pain hx of cholcystectomy , GERD, Sludge, pt states RUQ pain x 3 days. There has been no fever or chills, last n/v yesterday, last po intake 4 hrs ago without n/v. She states her symptoms are exacerbated by po intake and relieved by nothing tried. MD Complaint: abdominal pain - Related Data Home Medications Medication Instructions Recorded Confirmed Last Taken lisinopriL [Lisinopril] 20 mg PO DAILY 10/08/17 09/11/19 11/20/17 10:00 Zolpidem (Nf) [Ambien] 10 mg PO QHS 11/26/17 09/11/19 Unknown Detemir (Nf) [Levemir (Nf)] 60 units SUB-Q HS 11/27/17 09/11/19 1 Day Ago ~09/10/19 Previous Rx's Medication Instructions Recorded Last Taken Type Aspirin [Aspirin BABY CHEW TAB] 81 mg PO QDAY #30 tab.chew 06/12/17 11/20/17 10:00 Rx Insulin Detemir [Levemir Flextouch] 40 unit SQ QHS #4 insuln.pen 04/05/19 1 Day Ago Rx ~09/10/19 Clopidogrel [Plavix] 75 mg PO QDAY #30 tablet 07/20/19 1 Day Ago Rx ~09/10/19 Hydroxychloroquine [Plaquenil] 200 mg PO QDAY #20 tablet 07/20/19 Unknown Rx Insulin Glargine [Lantus VIAL] 50 unit SUB-Q QHS #1 vial 10/06/19 Unknown Rx metroNIDAZOLE [Flagyl] 500 mg PO BID 7 Days #14 tab 02/20/20 Unknown Rx Nitrofurantoin [place]/M-Cryst 100 mg PO Q12HR 10 Days #20 capsule 04/01/20 Unknown Rx [Macrobid CAP] Phenazopyridine [Pyridium] 100 mg PO TID #6 tab 04/01/20 Unknown Rx Prednisone [predniSONE 10 mg 10 mg PO .TAPER #1 tab.ds.pk 04/24/20 Unknown Rx (6-Day Pack, 21 Tabs)] cephALEXin [Keflex] 500 mg PO BID 3 Days #6 capsule 05/09/20 Unknown Rx metroNIDAZOLE [Flagyl] 500 mg PO BID 7 Days #14 tab 05/09/20 Unknown Rx Acetaminophen [Tylenol] 650 mg PO Q8HR PRN #20 capsule 05/16/20 Unknown Rx Menthol/Camphor [[place] 1 applicatio TP BID #18 oint...g. 05/16/20 Unknown Rx Ointment] Docusate Sodium [Colace] 100 mg PO BID PRN #20 capsule 05/20/20 Unknown Rx Ondansetron [Zofran Odt] 4 mg PO Q8HR PRN #20 tab.rapdis 05/20/20 Unknown Rx Polyethylene Glycol 3350 [Miralax] 17 gm PO DAILY PRN #7 dose 05/20/20 Unknown Rx Acetaminophen [Acetaminophen TAB] 1,000 mg PO Q6HR PRN #30 tablet 06/11/20 Unknown Rx Dicyclomine [Bentyl] 10 mg PO QID PRN #12 capsule 06/11/20 Unknown Rx Ondansetron [Zofran Odt] 4 mg PO Q8HR PRN #12 tab.rapdis 06/11/20 Unknown Rx Allergies Allergy/AdvReac Type Severity Reaction Status Date / Time egg Allergy Hives Verified 04/23/20 17:34 tramadol HCl [From Ultram] Allergy Hives Verified 04/23/20 17:34 vancomycin Allergy Hives Verified 04/23/20 17:34 NSAIDS (Non-Steroidal AdvReac Vomiting Verified 04/23/20 17:34 Anti-Inflamma ED Review of Systems ROS: Stated complaint: ABDOMINAL PAIN/VOMITING Other details as noted in HPI Constitutional: denies: chills, fever Eyes: denies: eye pain, eye discharge, vision change ENT: denies: ear pain, throat pain Respiratory: denies: cough, shortness of breath, wheezing Cardiovascular: denies: chest pain, palpitations Endocrine: no symptoms reported Gastrointestinal: abdominal pain (RUQ ), nausea, vomiting. denies: diarrhea, constipation Genitourinary: denies: urgency, dysuria, discharge Musculoskeletal: denies: back pain, joint swelling, arthralgia Skin: denies: rash, lesions Neurological: denies: headache, weakness, paresthesias Psychiatric: denies: anxiety, depression Hematological/Lymphatic: denies: easy bleeding, easy bruising ED Past Medical Hx - Past Medical History Hx Hypertension: Yes Hx CVA: No Hx Heart Attack/AMI: Yes (05/22, cardiac stent x1) Hx Congestive Heart Failure: No Hx Diabetes: Yes (type 2) Hx Deep Vein Thrombosis: No Hx Pulmonary Embolism: No Hx GERD: No Hx Liver Disease: No Hx Renal Disease: No Hx Sickle Cell Disease: No Hx Arthritis: No Hx Headaches / Migraines: No Hx Seizures: No Hx Kidney Stones: No 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 iron deficient anemia - Surgical History Hx Coronary Stent: Yes (x1) Hx Breast Surgery: Yes (breast reduction 05/2004) Additional Surgical History: Breast reduction bilateral,excisional surg. for abscess - Social History Smoking Status: Current Every Day Smoker Substance Use Type: Marijuana - Medications Home Medications: Home Medications Medication Instructions Recorded Confirmed Last Taken Type Aspirin [Aspirin BABY CHEW TAB] 81 mg PO QDAY #30 tab.chew 06/12/17 09/11/19 11/20/17 10:00 Rx lisinopriL [Lisinopril] 20 mg PO DAILY 10/08/17 09/11/19 11/20/17 10:00 History Zolpidem (Nf) [Ambien] 10 mg PO QHS 11/26/17 09/11/19 Unknown History Detemir (Nf) [Levemir (Nf)] 60 units SUB-Q HS 11/27/17 09/11/19 1 Day Ago H istory ~09/10/19 Insulin Detemir [Levemir Flextouch] 40 unit SQ QHS #4 insuln.pen 04/05/19 0 09/11/19 1 Day Ago Rx ~09/10/19 Clopidogrel [Plavix] 75 mg PO QDAY #30 tablet 07/20/19 09/11/19 1 Day Ago Rx ~09/10/19 Hydroxychloroquine [Plaquenil] 200 mg PO QDAY #20 tablet 07/20/19 09/11/19 Unknown Rx Insulin Glargine [Lantus VIAL] 50 unit SUB-Q QHS #1 vial 10/06/19 Unknown Rx metroNIDAZOLE [Flagyl] 500 mg PO BID 7 Days #14 tab 02/20/20 Unknown Rx Nitrofurantoin [place]/M-Cryst 100 mg PO Q12HR 10 Days #20 capsule 04/01/20 Unknown Rx [Macrobid CAP] Phenazopyridine [Pyridium] 100 mg PO TID #6 tab 04/01/20 Unknown Rx Prednisone [predniSONE 10 mg 10 mg PO .TAPER #1 tab.ds.pk 04/24/20 Unknown Rx (6-Day Pack, 21 Tabs)] cephALEXin [Keflex] 500 mg PO BID 3 Days #6 capsule 05/09/20 Unknown Rx metroNIDAZOLE [Flagyl] 500 mg PO BID 7 Days #14 tab 05/09/20 Unknown Rx Acetaminophen [Tylenol] 650 mg PO Q8HR PRN #20 capsule 05/16/20 Unknown Rx Menthol/Camphor [[place] 1 applicatio TP BID #18 oint...g. 05/16/20 Unknown Rx Ointment] Docusate Sodium [Colace] 100 mg PO BID PRN #20 capsule 05/20/20 Unknown Rx Ondansetron [Zofran Odt] 4 mg PO Q8HR PRN #20 tab.rapdis 05/20/20 Unknown Rx Polyethylene Glycol 3350 [Miralax] 17 gm PO DAILY PRN #7 dose 05/20/20 Unknown Rx Acetaminophen [Acetaminophen TAB] 1,000 mg PO Q6HR PRN #30 tablet 06/11/20 Unknown Rx Dicyclomine [Bentyl] 10 mg PO QID PRN #12 capsule 06/11/20 Unknown Rx Ondansetron [Zofran Odt] 4 mg PO Q8HR PRN #12 tab.rapdis 06/11/20 Unknown Rx ED Physical Exam - General Limitations: No Limitations General appearance: alert, in no apparent distress - Head Head exam: Present: atraumatic, normocephalic - Eye Eye exam: Present: EOMI Pupils: Present: normal accommodation - ENT ENT exam: Present: mucous membranes moist - Neck Neck exam: Present: normal inspection, full ROM. Absent: tenderness - Respiratory Respiratory exam: Present: normal lung sounds bilaterally. Absent: respiratory distress, wheezes, stridor, chest wall tenderness - Cardiovascular Cardiovascular Exam: Present: regular rate, normal rhythm, normal heart sounds. Absent: systolic murmur, diastolic murmur, rubs, gallop - GI/Abdominal GI/Abdominal exam: Present: normal bowel sounds. Absent: soft, distended, tenderness, guarding, rebound, rigid, bruit, hernia - Expanded GI/Abdominal Exam Expanded GI/Abdominal exam: Absent: psoas sign, obturator sign, heel tap sign, Hartmann's sign, Rovsing's sign, tenderness at [place]'s Point, ascites - Rectal Rectal exam: Present: deferred - External exam: Present: erythema - Extremities Exam Extremities exam: Present: normal inspection, full ROM, normal capillary refill. Absent: tenderness - Back Exam Back exam: Present: normal inspection. Absent: CVA tenderness (R), CVA tenderness (L), muscle spasm, paraspinal tenderness, rash noted - Neurological Exam Neurological exam: Present: alert, oriented X3, CN II-XII intact, normal gait - Psychiatric Psychiatric exam: Present: normal affect - Skin Skin exam: Present: warm, dry, intact, normal color. Absent: rash ED Course Vital Signs 06/11/20 01:49 Temperature 98.2 F Pulse Rate 81 Respiratory 18 Rate Blood Pressure 173/95 O2 Sat by Pulse 100 Oximetry ED Medical Decision Making - Lab Data Result diagrams: 06/11/20 02:24 06/11/20 02:24 - Radiology Data none - Medical Decision Making All labs normal, there is no nausea vomiting, there is no fever chills this time. Patient is tolerating p.o. intake. Patient will continue to hydrate at home. Patient will follow-up with PCP in 2 to 3 days. Patient verbalized agreement and understanding with discharge plan. Patient DC'd home in stable position at this time. Critical care attestation.: If time is entered above; I have spent that time in minutes in the direct care of this critically ill patient, excluding procedure time. ED Disposition Clinical Impression: Abdominal pain Qualifiers: Abdominal location: generalized Qualified Code(s): R10.84 - Generalized abdominal pain Disposition: [id number] HOME UNDER HOME HLTH Is pt being admited?: No Does the pt Need Aspirin: No Condition: Stable Instructions: Abdominal Pain (ED), Abdominal Pain, Adult, [id number] Prescriptions: Acetaminophen [Acetaminophen TAB] 1,000 mg PO Q6HR PRN #30 tablet PRN Reason: Pain Dicyclomine [Bentyl] 10 mg PO QID PRN #12 capsule PRN Reason: abdominal spasm Ondansetron [Zofran Odt] 4 mg PO Q8HR PRN #12 tab.rapdis PRN Reason: Nausea And Vomiting Referrals: [facility] [Provider Group] - 3-5 Days Forms: Work/School Release Form(ED) Time of Disposition: 05:37
[2020-06-11 04:54] LABS: Bilirubin,Urine NEG (Negative); Blood,Urine NEG (Negative); Color,Urine Yellow (Yellow); Protein,Urine <15 mg/dL mg/dL (Negative); RBC,Urine < 1.0 /HPF (0.0-6.0); Urobilinogen,Urine < 2.0 mg/dL (<2.0)
[2020-06-11 05:12] LABS: HCG Qualitative,Urine Negative (Negative)
== END 2020-06-11 06:00 | disposition home health service (06) ==
LOC: ED 01:49
DX: R10.11 Right upper quadrant pain (principal); I10 Essential (primary) hypertension; I25.2 Old myocardial infarction; E11.9 Type 2 diabetes mellitus without complications; F25.9 Schizoaffective disorder, unspecified; F17.200 Nicotine dependence, unspecified, uncomplicated; K21.9 Gastro-esophageal reflux disease without esophagitis; F12.90 Cannabis use, unspecified, uncomplicated; Z98.890 Other specified postprocedural states; Z79.899 Other long term (current) drug therapy; Z91.012 Allergy to eggs; Z91.048 Other nonmedicinal substance allergy status; Z88.8 Allergy status to other drugs, medicaments and biological substances; Z90.49 Acquired absence of other specified parts of digestive tract
CPT/HCPCS: 36415; 80053; 81001; 81025; 83690; 85025

== ENCOUNTER 2020-06-18 00:39 | Emergency (ER) | payer MEDICARE ==
[2020-06-18] MEDS ORDERED: ACETAMINOPHEN 500 MG TAB PO ONE (03:38)
[2020-06-18] MEDS ORDERED: CLINDAMYCIN 300 MG CAP PO ONE (03:38)
--- NOTE | 2020-06-18 03:44 | Emergency Department Report ---
ED General Adult HPI - General Chief complaint: Rectal Pain Stated complaint: RECTAL ABSCESS Time Seen by Provider: 06/18/20 02:42 Source: patient Mode of arrival: Ambulatory Limitations: No Limitations - History of Present Illness Initial comments: Patient is a 40-year-old female with history of rectal hydradenitis who presents for same tonight. Patient is followed by [facility] surgery states she came here due to pain there is no drainage. Patient is having normal bowel movements. There has been no fever or chills. Patient is currently on Suboxone therapy however is requesting pain medication. - Related Data Home Medications Medication Instructions Recorded Confirmed Last Taken lisinopriL [Lisinopril] 20 mg PO DAILY 10/08/17 09/11/19 11/20/17 10:00 Zolpidem (Nf) [Ambien] 10 mg PO QHS 11/26/17 09/11/19 Unknown Detemir (Nf) [Levemir (Nf)] 60 units SUB-Q HS 11/27/17 09/11/19 1 Day Ago ~09/10/19 Previous Rx's Medication Instructions Recorded Last Taken Type Aspirin [Aspirin BABY CHEW TAB] 81 mg PO QDAY #30 tab.chew 06/12/17 11/20/17 10:00 Rx Insulin Detemir [Levemir Flextouch] 40 unit SQ QHS #4 insuln.pen 04/05/19 1 Day Ago Rx ~09/10/19 Clopidogrel [Plavix] 75 mg PO QDAY #30 tablet 07/20/19 1 Day Ago Rx ~09/10/19 Hydroxychloroquine [Plaquenil] 200 mg PO QDAY #20 tablet 07/20/19 Unknown Rx Insulin Glargine [Lantus VIAL] 50 unit SUB-Q QHS #1 vial 10/06/19 Unknown Rx metroNIDAZOLE [Flagyl] 500 mg PO BID 7 Days #14 tab 02/20/20 Unknown Rx Nitrofurantoin [place]/M-Cryst 100 mg PO Q12HR 10 Days #20 capsule 04/01/20 Unknown Rx [Macrobid CAP] Phenazopyridine [Pyridium] 100 mg PO TID #6 tab 04/01/20 Unknown Rx Prednisone [predniSONE 10 mg 10 mg PO .TAPER #1 tab.ds.pk 04/24/20 Unknown Rx (6-Day Pack, 21 Tabs)] cephALEXin [Keflex] 500 mg PO BID 3 Days #6 capsule 05/09/20 Unknown Rx metroNIDAZOLE [Flagyl] 500 mg PO BID 7 Days #14 tab 05/09/20 Unknown Rx Acetaminophen [Tylenol] 650 mg PO Q8HR PRN #20 capsule 05/16/20 Unknown Rx Menthol/Camphor [[place] 1 applicatio TP BID #18 oint...g. 05/16/20 Unknown Rx Ointment] Docusate Sodium [Colace] 100 mg PO BID PRN #20 capsule 05/20/20 Unknown Rx Ondansetron [Zofran Odt] 4 mg PO Q8HR PRN #20 tab.rapdis 05/20/20 Unknown Rx Polyethylene Glycol 3350 [Miralax] 17 gm PO DAILY PRN #7 dose 05/20/20 Unknown Rx Acetaminophen [Acetaminophen TAB] 1,000 mg PO Q6HR PRN #30 tablet 06/11/20 Unknown Rx Dicyclomine [Bentyl] 10 mg PO QID PRN #12 capsule 06/11/20 Unknown Rx Ondansetron [Zofran Odt] 4 mg PO Q8HR PRN #12 tab.rapdis 06/11/20 Unknown Rx Acetaminophen [Acetaminophen TAB] 1,000 mg PO Q6HR PRN #30 tablet 06/18/20 Unknown Rx Clindamycin [Clindamycin CAP] 300 mg PO Q8H 7 Days #21 cap 06/18/20 Unknown Rx Allergies Allergy/AdvReac Type Severity Reaction Status Date / Time egg Allergy Hives Verified 04/23/20 17:34 piperacillin [From Zosyn] Allergy Hives Verified 06/18/20 01:57 tazobactam [From Zosyn] Allergy Hives Verified 06/18/20 01:57 tramadol HCl [From Ultram] Allergy Hives Verified 04/23/20 17:34 vancomycin Allergy Hives Verified 04/23/20 17:34 NSAIDS (Non-Steroidal AdvReac Vomiting Verified 04/23/20 17:34 Anti-Inflamma ED Review of Systems ROS: Stated complaint: RECTAL ABSCESS Other details as noted in HPI Constitutional: denies: chills, fever Eyes: denies: eye pain, eye discharge, vision change ENT: denies: ear pain, throat pain Respiratory: denies: cough, shortness of breath, wheezing Cardiovascular: denies: chest pain, palpitations Endocrine: no symptoms reported Gastrointestinal: denies: abdominal pain, nausea, diarrhea Genitourinary: denies: urgency, dysuria, discharge Musculoskeletal: denies: back pain, joint swelling, arthralgia Skin: lesions (buttocks scare tissue perirectal ) Neurological: denies: headache, weakness, paresthesias Psychiatric: denies: anxiety, depression Hematological/Lymphatic: as per HPI ED Past Medical Hx - Past Medical History Previous Medical History?: Yes Hx Hypertension: Yes Hx CVA: No Hx Heart Attack/AMI: Yes (05/22, cardiac stent x1) Hx Congestive Heart Failure: No Hx Diabetes: Yes (type 2) Hx Deep Vein Thrombosis: No Hx Pulmonary Embolism: No Hx GERD: No Hx Liver Disease: No Hx Renal Disease: No Hx Sickle Cell Disease: No Hx Arthritis: No Hx Headaches / Migraines: No Hx Seizures: No Hx Kidney Stones: No 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 iron deficient anemia - Surgical History Past Surgical History?: Yes Hx Coronary Stent: Yes (x1) Hx Breast Surgery: Yes (breast reduction 05/2004) Additional Surgical History: Breast reduction bilateral,excisional surg. for abscess to breast groin and rectum - Social History Smoking Status: Current Every Day Smoker Substance Use Type: Marijuana - Medications Home Medications: Home Medications Medication Instructions Recorded Confirmed Last Taken Type Aspirin [Aspirin BABY CHEW TAB] 81 mg PO QDAY #30 tab.chew 06/12/17 09/11/19 11/20/17 10:00 Rx lisinopriL [Lisinopril] 20 mg PO DAILY 10/08/17 09/11/19 11/20/17 10:00 History Zolpidem (Nf) [Ambien] 10 mg PO QHS 11/26/17 09/11/19 Unknown History Detemir (Nf) [Levemir (Nf)] 60 units SUB-Q HS 11/27/17 09/11/19 1 Day Ago History ~09/10/19 Insulin Detemir [Levemir Flextouch] 40 unit SQ QHS #4 insuln.pen 04/05/19 09/11/19 1 Day Ago Rx ~09/10/19 Clopidogrel [Plavix] 75 mg PO QDAY #30 tablet 07/20/19 09/11/19 1 Day Ago Rx ~09/10/19 Hydroxychloroquine [Plaquenil] 200 mg PO QDAY #20 tablet 07/20/19 09/11/19 Un known Rx Insulin Glargine [Lantus VIAL] 50 unit SUB-Q QHS #1 vial 10/06/19 Unknown Rx metroNIDAZOLE [Flagyl] 500 mg PO BID 7 Days #14 tab 02/20/20 Unknown Rx Nitrofurantoin [place]/M-Cryst 100 mg PO Q12HR 10 Days #20 capsule 04/01/20 Unknown Rx [Macrobid CAP] Phenazopyridine [Pyridium] 100 mg PO TID #6 tab 04/01/20 Unknown Rx Prednisone [predniSONE 10 mg 10 mg PO .TAPER #1 tab.ds.pk 04/24/20 Unknown Rx (6-Day Pack, 21 Tabs)] cephALEXin [Keflex] 500 mg PO BID 3 Days #6 capsule 05/09/20 Unknown Rx metroNIDAZOLE [Flagyl] 500 mg PO BID 7 Days #14 tab 05/09/20 Unknown Rx Acetaminophen [Tylenol] 650 mg PO Q8HR PRN #20 capsule 05/16/20 Unknown Rx Menthol/Camphor [[place] 1 applicatio TP BID #18 oint...g. 05/16/20 Unknown Rx Ointment] Docusate Sodium [Colace] 100 mg PO BID PRN #20 capsule 05/20/20 Unknown Rx Ondansetron [Zofran Odt] 4 mg PO Q8HR PRN #20 tab.rapdis 05/20/20 Unknown Rx Polyethylene Glycol 3350 [Miralax] 17 gm PO DAILY PRN #7 dose 05/20/20 Unknown Rx Acetaminophen [Acetaminophen TAB] 1,000 mg PO Q6HR PRN #30 tablet 06/11/20 Unknown Rx Dicyclomine [Bentyl] 10 mg PO QID PRN #12 capsule 06/11/20 Unknown Rx Ondansetron [Zofran Odt] 4 mg PO Q8HR PRN #12 tab.rapdis 06/11/20 Unknown Rx Acetaminophen [Acetaminophen TAB] 1,000 mg PO Q6HR PRN #30 tablet 06/18/20 Unknown Rx Clindamycin [Clindamycin CAP] 300 mg PO Q8H 7 Days #21 cap 06/18/20 Unknown Rx ED Physical Exam - General Limitations: No Limitations General appearance: alert, in no apparent distress - Head Head exam: Present: atraumatic, normocephalic - Eye Eye exam: Present: normal appearance, EOMI Pupils: Present: normal accommodation - ENT ENT exam: Present: mucous membranes moist - Neck Neck exam: Present: normal inspection, full ROM. Absent: tenderness - Respiratory Respiratory exam: Present: normal lung sounds bilaterally. Absent: respiratory distress, wheezes - Cardiovascular Cardiovascular Exam: Present: regular rate, normal rhythm, normal heart sounds. Absent: systolic murmur, diastolic murmur, rubs, gallop - GI/Abdominal GI/Abdominal exam: Present: soft, normal bowel sounds. Absent: distended, tenderness, guarding, rebound, rigid, bruit, hernia - Rectal Rectal exam: Present: tenderness (scar tissue tenderness, no erythema no fluctuance , no drainage no op lesion, ). Absent: bloody stool, hemorrhoids - Extremities Exam Extremities exam: Present: normal inspection - Back Exam Back exam: Present: normal inspection, full ROM. Absent: tenderness, CVA tenderness (R), CVA tenderness (L) - Neurological Exam Neurological exam: Present: alert, oriented X3 - Psychiatric Psychiatric exam: Present: normal affect, normal mood - Skin Skin exam: Present: warm, dry, intact, normal color. Absent: rash ED Medical Decision Making - Medical Decision Making pt will be treated with Tylenol, initiate antibiotics and follow-up with [facility] tomorrow., pt will be dc'd in stable condition at this time. Critical care attestation.: If time is entered above; I have spent that time in minutes in the direct care of this critically ill patient, excluding procedure time. ED Disposition Clinical Impression: Scar irritation, Hydradenitis Disposition: DC-01 TO HOME OR SELFCARE Is pt being admited?: No Does the pt Need Aspirin: No Condition: Stable Instructions: Hidradenitis Suppurativa, Scar Revision Additional Instructions: follow up with your [facility] for folllow up and treatment as needed. Prescriptions: Acetaminophen [Acetaminophen TAB] 1,000 mg PO Q6HR PRN #30 tablet PRN Reason: pain Clindamycin [Clindamycin CAP] 300 mg PO Q8H 7 Days #21 cap Referrals: [facility]IMARY CARE,[facility] [Other] - 3-5 Days Forms: Work/School Release Form(ED) Time of Disposition: 03:52
== END 2020-06-18 04:30 | disposition home or self-care (01) ==
LOC: ED 00:39
DX: L73.2 Hidradenitis suppurativa (principal); L90.5 Scar conditions and fibrosis of skin; I10 Essential (primary) hypertension; I25.2 Old myocardial infarction; E11.9 Type 2 diabetes mellitus without complications; F25.0 Schizoaffective disorder, bipolar type; F12.90 Cannabis use, unspecified, uncomplicated; F17.200 Nicotine dependence, unspecified, uncomplicated; Z91.012 Allergy to eggs; Z88.8 Allergy status to other drugs, medicaments and biological substances; Z79.899 Other long term (current) drug therapy; Z98.890 Other specified postprocedural states
CPT/HCPCS: 99282

== ENCOUNTER 2020-07-20 18:05 | Emergency (ER) | payer MEDICARE ==
[2020-07-20] MEDS ORDERED: ACETAMINOPHEN 500 MG TAB ONE (20:03)
[2020-07-20] MEDS ORDERED: ACETAMINOPHEN 500 MG TAB PO ONE (20:04)
--- NOTE | 2020-07-20 22:26 | XRay Report ---
CHEST 2 VIEWS INDICATION / CLINICAL INFORMATION: SOB. COMPARISON: 08/26/2019. FINDINGS: SUPPORT DEVICES: None. HEART / MEDIASTINUM: No significant abnormality. LUNGS / PLEURA: Patchy pulmonary opacities in the right lung base are concerning for developing pneum onia. No pneumothorax. ADDITIONAL FINDINGS: No significant additional findings. IMPRESSION: 1. Pulmonary opacities in the right lung base are concerning for pneumonia. Continued radiographic shah rveillance is recommended to ensure resolution. Signer Name: Mario Manzanares MD Signed: 07/20/2020 10:22 PM Workstation Name: [id number]
[2020-07-21] MEDS ORDERED: IPRATROPIUM/ALBUTEROL SULFATE 3 ML AMPUL.NEB IH ONE (01:56)
--- NOTE | 2020-07-21 02:01 | Emergency Department Report ---
HPI - General Chief Complaint: Dyspnea/Respdistress Time Seen by Provider: 07/21/20 01:47 - HPI HPI: This is a 40-year-old female presents to the emergency department with a complaint of a 2-day history of shortness of breath and fevers. She says that she had a fever of T-max 100 F at home. She treated it with some Tylenol yesterday but has not taken anything yet today. She denies any cough, back pain, nausea, vomiting, lower extremity edema or diaphoresis. The patient does complaint of developing some midsternal chest discomfort earlier in the day. She has a past medical history of thr-apjxbiz-[id number] diabetes, lupus, coronary artery disease with one cardiac stent, hypertension, iron deficiency anemia, and the patient has a history of bipolar disorder and schizoaffective disorder. No recent travel or sick contacts at home. No known exposure to anyone with COVID-19. She is a tobacco smoker. ED Past Medical Hx - Past Medical History Hx Hypertension: Yes Hx CVA: No Hx Heart Attack/AMI: Yes (05/22, cardiac stent x1) Hx Congestive Heart Failure: No Hx Diabetes: Yes (type 2) Hx Deep Vein Thrombosis: No Hx Pulmonary Embolism: No Hx GERD: No Hx Liver Disease: No Hx Renal Disease: No Hx Sickle Cell Disease: No Hx Arthritis: No Hx Headaches / Migraines: No Hx Seizures: No Hx Kidney Stones: No 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 iron deficient anemia - Surgical History Hx Coronary Stent: Yes (x1) Hx Breast Surgery: Yes (breast reduction 05/2004) Additional Surgical History: Breast reduction bilateral,excisional surg. for abscess to breast groin and rectum - Social History Smoking Status: Never Smoker - Medications Home Medications: Home Medications Medication Instructions Recorded Confirmed Last Taken Type Aspirin [Aspirin BABY CHEW TAB] 81 mg PO QDAY #30 tab.chew 06/12/17 09/11/19 11/20/17 10:00 Rx lisinopriL [Lisinopril] 20 mg PO DAILY 10/08/17 09/11/19 11/20/17 10:00 History Zolpidem (Nf) [Ambien] 10 mg PO QHS 11/26/17 09/11/19 Unknown History Detemir (Nf) [Levemir (Nf)] 60 units SUB-Q HS 11/27/17 09/11/19 1 Day Ago History ~09/10/19 Insulin Detemir [Levemir Flextouch] 40 unit SQ QHS #4 insuln.pen 04/05/19 09/11/19 1 Day Ago Rx ~09/10/19 Clopidogrel [Plavix] 75 mg PO QDAY #30 tablet 07/20/19 09/11/19 1 Day Ago Rx ~09/10/19 Hydroxychloroquine [Plaquenil] 200 mg PO QDAY #20 tablet 07/20/19 09/11/19 Unknown Rx Insulin Glargine [Lantus VIAL] 50 unit SUB-Q QHS #1 vial 10/06/19 Unknown Rx metroNIDAZOLE [Flagyl] 500 mg PO BID 7 Days #14 tab 02/20/20 Unknown Rx Nitrofurantoin [place]/M-Cryst 100 mg PO Q12HR 10 Days #20 capsule 04/01/20 Unknow n Rx [Macrobid CAP] Phenazopyridine [Pyridium] 100 mg PO TID #6 tab 04/01/20 Unknown Rx Prednisone [predniSONE 10 mg 10 mg PO .TAPER #1 tab.ds.pk 04/24/20 Unknown Rx (6-Day Pack, 21 Tabs)] cephALEXin [Keflex] 500 mg PO BID 3 Days #6 capsule 05/09/20 Unknown Rx metroNIDAZOLE [Flagyl] 500 mg PO BID 7 Days #14 tab 05/09/20 Unknown Rx Acetaminophen [Tylenol] 650 mg PO Q8HR PRN #20 capsule 05/16/20 Unknown Rx Menthol/Camphor [[place] 1 applicatio TP BID #18 oint...g. 05/16/20 Unknown Rx Ointment] Docusate Sodium [Colace] 100 mg PO BID PRN #20 capsule 05/20/20 Unknown Rx Ondansetron [Zofran Odt] 4 mg PO Q8HR PRN #20 tab.rapdis 05/20/20 Unknown Rx Polyethylene Glycol 3350 [Miralax] 17 gm PO DAILY PRN #7 dose 05/20/20 Unknown Rx Acetaminophen [Acetaminophen TAB] 1,000 mg PO Q6HR PRN #30 tablet 06/11/20 Unknown Rx Dicyclomine [Bentyl] 10 mg PO QID PRN #12 capsule 06/11/20 Unknown Rx Ondansetron [Zofran Odt] 4 mg PO Q8HR PRN #12 tab.rapdis 06/11/20 Unknown Rx Acetaminophen [Acetaminophen TAB] 1,000 mg PO Q6HR PRN #30 tablet 06/18/20 U nknown Rx Clindamycin [Clindamycin CAP] 300 mg PO Q8H 7 Days #21 cap 06/18/20 Unknown Rx Albuterol Mdi (or & Nicu Only) 2 puff IH QID PRN #8.5 gram 07/21/20 Unknown Rx [ProAir HFA Inhaler] levoFLOXacin [Levaquin] 750 mg PO QDAY #5 tablet 07/21/20 Unknown Rx ED Review of Systems ROS: Stated complaint: SHORTNESS OF BREATH/FEVER Other details as noted in HPI Comment: All other systems reviewed and negative Constitutional: fever. denies: malaise Eyes: denies: eye pain, vision change ENT: denies: ear pain, throat pain Respiratory: shortness of breath. denies: cough Cardiovascular: chest pain. denies: palpitations, edema Gastrointestinal: denies: abdominal pain, vomiting Genitourinary: denies: dysuria, discharge Musculoskeletal: denies: back pain, arthralgia Skin: denies: rash, lesions Neurological: denies: headache, weakness Physical Exam - Physical Exam Vital Signs: Vital Signs 07/20/20 19:36 Temperature 100.4 F H Pulse Rate 96 H Respiratory 18 Rate Blood Pressure 111/47 O2 Sat by Pulse 96 Oximetry Physical Exam: GENERAL: The patient is well-developed well-nourished. HENT: Normocephalic. Atraumatic. Patient has moist mucous membranes. EYES: Extraocular motions are intact. NECK: Supple. Trachea is midline. CHEST/LUNGS: Mild expiratory wheezing throughout the chest. No tachypnea or accessory muscle use. There is no respiratory distress noted. HEART/CARDIOVASCULAR: Regular. There is no tachycardia. There is no murmur. ABDOMEN: Abdomen is soft, nontender. Patient has normal bowel sounds. There is no abdominal distention. SKIN: Skin is warm and dry. NEURO: The patient is awake, alert, and oriented. The patient is cooperative. The patient has no focal neurologic deficits. Normal speech. MUSCULOSKELETAL: There is no tenderness or deformity. There is no limitation range of motion. ED Course Vital Signs 07/20/20 19:36 Temperature 100.4 F H Pulse Rate 96 H Respiratory 18 Rate Blood Pressure 111/47 O2 Sat by Pulse 96 Oximetry ED Medical Decision Making - Lab Data Result diagrams: 07/21/20 02:09 07/21/20 02:09 Lab Results 07/20/20 07/21/20 07/21/20 Range/Units 19:39 02:09 02:09 WBC 10.7 (4.5-11.0) K/mm3 RBC 4.22 (3.65-5.03) M/mm3 Hgb 9.6 L (10.1-14.3) gm/dl Hct 30.2 L (30.3-42.9) % MCV 72 L (79-97) fl MCH 23 L (28-32) pg MCHC 32 (30-34) % RDW 19.0 H (13.2-15.2) % Plt Count 243 (140-440) K/mm3 Lymph % (Auto) 17.6 (13.4-35.0) % [place] % (Auto) 4.6 (0.0-7.3) % Eos % (Auto) 1.1 (0.0-4.3) % Baso % (Auto) 0.2 (0.0-1.8) % Lymph # (Auto) 1.9 (1.2-5.4) K/mm3 [place] # (Auto) 0.5 (0.0-0.8) K/mm3 Eos # (Auto) 0.1 (0.0-0.4) K/mm3 Baso # (Auto) 0.0 (0.0-0.1) K/mm3 Seg Neutrophils % 76.5 H (40.0-70.0) % Seg Neutrophils # 8.2 H (1.8-7.7) K/mm3 Sodium 140 (137-145) mmol/L Potassium 3.8 (3.6-5.0) mmol/L Chloride 106.8 (98-107) mmol/L Carbon Dioxide 21 L (22-30) mmol/L Anion Gap 16 mmol/L BUN 6 L (7-17) mg/dL Creatinine 0.6 (0.6-1.2) mg/dL Estimated GFR > 60 ml/min BUN/Creatinine Ratio 10 % Glucose 111 H (65-100) mg/dL POC Glucose 153 H (70-105) mg/dL Calcium 8.3 L (8.4-10.2) mg/dL Troponin T < 0.010 (0.00-0.029) ng/mL - EKG Data -: EKG Interpreted by Me EKG shows normal: sinus rhythm, axis, intervals, QRS complexes, ST-T waves (T wave inversions to the inferior leads) Rate: normal - EKG Data When compared to previous EKG there are: no significant change Interpretation: unchanged when compared t (07/03/19) - Radiology Data Radiology results: report reviewed, image reviewed CHEST 2 VIEWS INDICATION / CLINICAL INFORMATION: SOB. COMPARISON: 08/26/2019. FINDINGS: SUPPORT DEVICES: None. HEART / MEDIASTINUM: No significant abnormality. LUNGS / PLEURA: Patchy pulmonary opacities in the right lung base are concerning for developing pneumonia. No pneumothorax. ADDITIONAL FINDINGS: No significant additional findings. IMPRESSION: 1. Pulmonary opacities in the right lung base are concerning for pneumonia. Continued radiographic surveillance is recommended to ensure resolution. - Medical Decision Making Patient presents to the emergency department with a complaint of some shortness of breath and an occasional cough. She also had complained of some midsternal chest discomfort. There is some mild expiratory wheezing but the patient does not appear in any respiratory or acute distress. Heart sounds are normal to auscultation. EKG does not have any morphology consistent with ST elevation myocardial infarction. Chest x-ray shows some patchy opacity to the right lung base consistent with pneumonia. Patient's labs are mostly unremarkable including CBC, metabolic panel and a negative troponin. She was given a DuoNeb breathing treatment, as well as some Tylenol for her low- grade fever. Upon reevaluation she is feeling improved. Her fever has r esolved. The rest of the vital signs have been reassuring throughout her ED course. No hypoxia. Patient replaced on oral antibiotics and has been instructed to follow-up with her primary care physician. Her chest x-ray does not have the typical appearance of Covid pneumonia in which you usually see bilateral patchy infiltrates. However, given her low-grade fever, shortness of breath, pneumonia, and this current pandemic, I explained to the patient that she should still get tested for COVID-19. We are unable to do this for her at this time with vngxr-lr-[id number] testing and the patient does not appear to require admission. Critical Care Time: No Critical care attestation.: If time is entered above; I have spent that time in minutes in the direct care of this critically ill patient, excluding procedure time. ED Disposition Clinical Impression: Pneumonia Qualifiers: Pneumonia type: due to unspecified organism Laterality: right Lung location: lower lobe of lung Qualified Code(s): J18.9 - Pneumonia, unspecified organism Disposition: DC- TO HOME OR SELFCARE Is pt being admited?: No Condition: Stable Instructions: Community-Acquired Pneumonia, Adult, Bacterial Pneumonia (ED) Prescriptions: levoFLOXacin [Levaquin] 750 mg PO QDAY #5 tablet Albuterol Mdi (or & Nicu Only) [ProAir HFA Inhaler] 2 puff IH QID PRN #8.5 gram PRN Reason: Shortness Of Breath Referrals: PCP, Your [Other] - 2-3 Days Time of Disposition: 03:58
[2020-07-21 02:26] VITALS: BP 108/49
[2020-07-21 02:47] LABS: Basophils % (Auto) 0.2 % (0.0-1.8); Eosinophils # (Auto) 0.1 K/mm3 (0.0-0.4); Eosinophils % (Auto) 1.1 % (0.0-4.3); Hematocrit 30.2 % (30.3-42.9); Hemoglobin 9.6 gm/dl (10.1-14.3); Lymphocytes # (Auto) 1.9 K/mm3 (1.2-5.4); Lymphocytes % (Auto) 17.6 % (13.4-35.0); Mean Corpuscular HGB Conc 32 % (30-34); Mean Corpuscular Volume 72 fl (79-97); Monocytes # (Auto) 0.5 K/mm3 (0.0-0.8); Monocytes % (Auto) 4.6 % (0.0-7.3); Platelet Count 243 K/mm3 (140-440); Red Blood Count 4.22 M/mm3 (3.65-5.03)
[2020-07-21 03:04] LABS: Blood Urea Nitrogen 6 mg/dL (7-17); Calcium 8.3 mg/dL (8.4-10.2); Hemolysis Index 3
[2020-07-21 03:13] LABS: BUN/Creatinine Ratio 10
[2020-07-21] MEDS ORDERED: levoFLOXacin 750 MG TAB PO ONE (03:56)
[2020-07-21] MEDS ORDERED: HYDROcodone/ACETAMINOPHEN 5-325 MG TAB PO ONE (04:21)
--- NOTE | 2020-07-21 08:44 | Electrocardiograph Report ---
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
== END 2020-07-21 04:25 | disposition home or self-care (01) ==
LOC: ED 18:05
DX: J18.9 Pneumonia, unspecified organism (principal); I10 Essential (primary) hypertension; I25.2 Old myocardial infarction; E11.9 Type 2 diabetes mellitus without complications; F31.9 Bipolar disorder, unspecified; Z98.890 Other specified postprocedural states; Z79.4 Long term (current) use of insulin; Z79.2 Long term (current) use of antibiotics; Z79.899 Other long term (current) drug therapy; Z88.8 Allergy status to other drugs, medicaments and biological substances
CPT/HCPCS: 36415; 71046; 80048; 82962; 84484; 85025; 93005; 94640

== ENCOUNTER 2020-07-29 22:15 | Emergency (ER) | payer MEDICARE ==
[2020-07-29 22:20] VITALS: BP 133/68
[2020-07-29 23:33] LABS: Basophils % (Auto) 0.3 % (0.0-1.8); Eosinophils # (Auto) 0.1 K/mm3 (0.0-0.4); Eosinophils % (Auto) 1.4 % (0.0-4.3); Hematocrit 32.6 % (30.3-42.9); Hemoglobin 10.4 gm/dl (10.1-14.3); Lymphocytes # (Auto) 3.2 K/mm3 (1.2-5.4); Mean Corpuscular HGB Conc 32 % (30-34); Mean Corpuscular Volume 71 fl (79-97); Monocytes # (Auto) 0.6 K/mm3 (0.0-0.8); Monocytes % (Auto) 6.3 % (0.0-7.3); Platelet Count 347 K/mm3 (140-440); Red Blood Count 4.61 M/mm3 (3.65-5.03); Red Cell Distribution Width 18.1 % (13.2-15.2)
[2020-07-30 00:36] LABS: Alanine Aminotransferase 17 units/L (7-56); BUN/Creatinine Ratio 14; Blood Urea Nitrogen 11 mg/dL (7-17); Hemolysis Index 7
[2020-07-30 02:55] LABS: Mucus,Urine FEW /HPF; WBC,Urine < 1.0 /HPF (0.0-6.0)
[2020-07-30 03:39] LABS: Bilirubin,Urine Negative (Negative); Color,Urine Yellow (Yellow)
[2020-07-30] MEDS ORDERED: HYDROmorphone 1 MG/1 ML INJ IM ONE (05:11)
--- NOTE | 2020-07-30 05:15 | Event Note ---
Date: 07/30/20 The patient was evaluated in the emergency department for symptoms described in the history of present illness. He/she was evaluated in the context of the global COVID-19 pandemic, which necessitated consideration that the patient might be at risk for infection with the virus that causes COVID-19. Institutional protocols and algorithms that pertain to the evaluation of patients at risk for COVID-19 are in a state of rapid change based on information released by regulatory bodies including the CDC and federal and state organizations. These policies and algorithms were followed during the patient's care in the emergency department. Please note that these policies, procedures and recommendations changed on a rapid basis. This is a 40-year-old female with a reported history of hidradenitis, CAD with stent, chronic pain, on Suboxone, lupus, known ovarian cyst, typically follows at [place], presenting to the ER with a complaint of painful vaginal bleeding, right lower quadrant pain and sensation that she is having pain from an ovarian cyst. Patient was seen and evaluated at this hospital 10 days ago for presumed pneumonia, she reports completing her antibiotics, and had a negative outpatient Covid test since then. The patient denies dysuria. The patient denies Covid symptomatology. Physical exam unremarkable with the exception of lower abdominal tenderness. She denies fever, anorexia, and reports that her pain today subjectively similar to prior episodes of ovarian cyst pain. Suspect dysmenorrhea. Treat patient's pain, obtain pelvic ultrasound. Vital Signs 07/29/20 07/30/20 22:17 05:05 Temperature 98.8 F Pulse Rate 92 H Respiratory 18 18 Rate Blood Pressure 133/68 O2 Sat by Pulse 98 Oximetry Lab Results 07/29/20 07/29/20 07/29/20 Range/Units 02:22 23:04 23:04 WBC 8.9 (4.5-11.0) K/mm3 RBC 4.61 (3.65-5.03) M/mm3 Hgb 10.4 (10.1-14.3) gm/dl Hct 32.6 (30.3-42.9) % MCV 71 L (79-97) fl MCH 23 L (28-32) pg MCHC 32 (30-34) % RDW 18.1 H (13.2-15.2) % Plt Count 347 (140-440) K/mm3 Lymph % (Auto) 36.0 H (13.4-35.0) % [place] % (Auto) 6.3 (0.0-7.3) % Eos % (Auto) 1.4 (0.0-4.3) % Baso % (Auto) 0.3 (0.0-1.8) % Lymph # (Auto) 3.2 (1.2-5.4) K/mm3 [place] # (Auto) 0.6 (0.0-0.8) K/mm3 Eos # (Auto) 0.1 (0.0-0.4) K/mm3 Baso # (Auto) 0.0 (0.0-0.1) K/mm3 Seg Neutrophils % 56.0 (40.0-70.0) % Seg Neutrophils # 5.0 (1.8-7.7) K/mm3 Sodium 139 (137-145) mmol/L Potassium 3.7 (3.6-5.0) mmol/L Chloride 101.2 (98-107) mmol/L Carbon Dioxide 22 (22-30) mmol/L Anion Gap 20 mmol/L BUN 11 (7-17) mg/dL Creatinine 0.8 (0.6-1.2) mg/dL Estimated GFR > 60 ml/min BUN/Creatinine Ratio 14 % Glucose 185 H (65-100) mg/dL Calcium 9.0 (8.4-10.2) mg/dL Total Bilirubin < 0.20 (0.1-1.2) mg/dL AST 18 (5-40) units/L ALT 17 (7-56) units/L Alkaline Phosphatase 91 (35-129) units/L Total Protein 7.7 (6.3-8.2) g/dL Albumin 4.0 (3.9-5) g/dL Albumin/Globulin Ratio 1.1 % HCG, Qual (Negative) Urine Color Yellow (Yellow) Urine Turbidity Clear (Clear) Urine pH 6.0 (5.0-7.0) Ur Specific [place] 1.002 L (1.003-1.030) Urine Protein 30 mg/dl (Negative) mg/dL Urine Glucose (UA) Negative (Negative) mg/dL Urine Ketones Negative (Negative) mg/dL Urine Nitrite Negative (Negative) Ur Reducing Substances Not Reportable Urine Bilirubin Negative (Negative) Urine Ictotest Not Reportable Urine Urobilinogen 0.0 (<2.0) mg/dL Ur Leukocyte Esterase Negative (Negative) Urine WBC (Auto) < 1.0 (0.0-6.0) /HPF Urine RBC (Auto) 7.0 (0.0-6.0) /HPF U Epithel Cells (Auto) 1.0 (0-13.0) /HPF Urine Mucus Few /HPF / Range/Units 23:04 WBC (4.5-11.0) K/mm3 RBC (3.65-5.03) M/mm3 Hgb (10.1-14.3) gm/dl Hct (30.3-42.9) % MCV (79-97) fl MCH (28-32) pg MCHC (30-34) % RDW (13.2-15.2) % Plt Count (140-440) K/mm3 Lymph % (Auto) (13.4-35.0) % [place] % (Auto) (0.0-7.3) % Eos % (Auto) (0.0-4.3) % Baso % (Auto) (0.0-1.8) % Lymph # (Auto) (1.2-5.4) K/mm3 [place] # (Auto) (0.0-0.8) K/mm3 Eos # (Auto) (0.0-0.4) K/mm3 Baso # (Auto) (0.0-0.1) K/mm3 Seg Neutrophils % (40.0-70.0) % Seg Neutrophils # (1.8-7.7) K/mm3 Sodium (137-145) mmol/L Potassium (3.6-5.0) mmol/L Chloride (98-107) mmol/L Carbon Dioxide (22-30) mmol/L Anion Gap mmol/L BUN (7-17) mg/dL Creatinine (0.6-1.2) mg/dL Estimated GFR ml/min BUN/Creatinine Ratio % Glucose (65-100) mg/dL Calcium (8.4-10.2) mg/dL Total Bilirubin (0.1-1.2) mg/dL AST (5-40) units/L ALT (7-56) units/L Alkaline Phosphatase (35-129) units/L Total Protein (6.3-8.2) g/dL Albumin (3.9-5) g/dL Albumin/Globulin Ratio % HCG, Qual Negative (Negative) Urine Color (Yellow) Urine Turbidity (Clear) Urine pH (5.0-7.0) Ur Specific [place] (1.003-1.030) Urine Protein (Negative) mg/dL Urine Glucose (UA) (Negative) mg/dL Urine Ketones (Negative) mg/dL Urine Nitrite (Negative) Ur Reducing Substances Urine Bilirubin (Negative) Urine Ictotest Urine Urobilinogen (<2.0) mg/dL Ur Leukocyte Esterase (Negative) Urine WBC (Auto) (0.0-6.0) /HPF Urine RBC (Auto) (0.0-6.0) /HPF U Epithel Cells (Auto) (0-13.0) /HPF Urine Mucus /HPF
--- NOTE | 2020-07-30 06:42 | Emergency Department Report ---
HPI - General Chief Complaint: Abdominal Pain Time Seen by Provider: 07/30/20 06:12 - HPI HPI: Room 21 The patient is a 40-year-old female present with a chief complaint of abdominal pain. Patient states for 1 day she has had right lower quadrant pain that was sudden intermittent and sharp in nature. Patient admits to nausea but denies vomiting. Patient has a history of ovarian cysts and states she has had this pain in the past. Patient denies vaginal discharge, hematuria or dysuria. Patient states her cycle began 12 hours ago when her pain began. Patient states she has gone through approximately 4 pads since her cycle began. Patient denies history of fever. 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 iron deficient anemia - Surgical History Hx Coronary Stent: Yes (x1) Hx Breast Surgery: Yes (breast reduction 05/2004) Additional Surgical History: Breast reduction bilateral,excisional surg. for abscess to breast groin and rectum - Family History Family history: no significant - Social History Smoking Status: Current Every Day Smoker (1 pack/day) Substance Use Type: Marijuana - Medications Home Medications: Home Medications Medication Instructions Recorded Confirmed Last Taken Type Aspirin [Aspirin BABY CHEW TAB] 81 mg PO QDAY #30 tab.chew 06/12/17 09/11/19 11/20/17 10:00 Rx lisinopriL [Lisinopril] 20 mg PO DAILY 10/08/17 09/11/19 11/20/17 10:00 History Zolpidem (Nf) [Ambien] 10 mg PO QHS 11/26/17 09/11/19 Unknown History Detemir (Nf) [Levemir (Nf)] 60 units SUB-Q HS 11/27/17 09/11/19 1 Day Ago History ~09/10/19 Insulin Detemir [Levemir Flextouch] 40 unit SQ QHS #4 insuln.pen 04/05/19 09/11/19 1 Day Ago Rx ~09/10/19 Clopidogrel [Plavix] 75 mg PO QDAY #30 tablet 07/20/19 09/11/19 1 Day Ago Rx ~09/10/19 Hydroxychloroquine [Plaquenil] 200 mg PO QDAY #20 tablet 07/20/19 09/11/19 Unknown Rx Insulin Glargine [Lantus VIAL] 50 unit SUB-Q QHS #1 vial 10/06/19 Unknown Rx metroNIDAZOLE [Flagyl] 500 mg PO BID 7 Days #14 tab 02/20/20 Unknown Rx Nitrofurantoin Pike/M-Cryst 100 mg PO Q12HR 10 Days #20 capsule 04/01/20 Unknown Rx [Macrobid CAP] Phenazopyridine [Pyridium] 100 mg PO TID #6 tab 04/01/20 Unknown Rx Prednisone [predniSONE 10 mg 10 mg PO .TAPER #1 tab.ds.pk 04/24/20 Unknown Rx (6-Day Pack, 21 Tabs)] cephALEXin [Keflex] 500 mg PO BID 3 Days #6 capsule 05/09/20 Unknown Rx metroNIDAZOLE [Flagyl] 500 mg PO BID 7 Days #14 tab 05/09/20 Unknown Rx Acetaminophen [Tylenol] 650 mg PO Q8HR PRN #20 capsule 05/16/20 Unknown Rx Menthol/Camphor [[place] 1 applicatio TP BID #18 oint...g. 05/16/20 Unknown Rx Ointment] Docusate Sodium [Colace] 100 mg PO BID PRN #20 capsule 05/20/20 Unknown Rx Ondansetron [Zofran Odt] 4 mg PO Q8HR PRN #20 tab.rapdis 05/20/20 Unknown Rx Polyethylene Glycol 3350 [Miralax] 17 gm PO DAILY PRN #7 dose 05/20/20 Unknown Rx Acetaminophen [Acetaminophen TAB] 1,000 mg PO Q6HR PRN #30 tablet 06/11/20 Unknown Rx Dicyclomine [Bentyl] 10 mg PO QID PRN #12 capsule 06/11/20 Unknown Rx Ondansetron [Zofran Odt] 4 mg PO Q8HR PRN #12 tab.rapdis 06/11/20 Unknown Rx Acetaminophen [Acetaminophen TAB] 1,000 mg PO Q6HR PRN #30 tablet 06/18/20 Unknown Rx Clindamycin [Clindamycin CAP] 300 mg PO Q8H 7 Days #21 cap 06/18/20 Unknown Rx Albuterol Mdi (or & Nicu Only) 2 puff IH QID PRN #8.5 gram 07/21/20 Unknown Rx [ProAir HFA Inhaler] levoFLOXacin [Levaquin] 750 mg PO QDAY #5 tablet 07/21/20 Unknown Rx HYDROcodone/APAP 5-325 [[place] 1 each PO Q6HR PRN #7 tablet 07/30/20 Unknown Rx 5/325] Ondansetron [Zofran ODT TAB] 8 mg PO Q8HR #20 tab.rapdis 07/30/20 Unknown Rx ED Review of Systems ROS: Stated complaint: OVARIAN CYST PAIN Other details as noted in HPI Constitutional: denies: fever Eyes: denies: eye pain ENT: denies: throat pain Respiratory: no symptoms reported Cardiovascular: denies: chest pain Endocrine: no symptoms reported Gastrointestinal: abdominal pain, nausea. denies: vomiting Genitourinary: denies: dysuria, hematuria, discharge, abnormal menses Musculoskeletal: denies: back pain Neurological: denies: headache Physical Exam - Physical Exam Vital Signs: Vital Signs 07/29/20 07/30/20 22:17 05:05 Temperature 98.8 F Pulse Rate 92 H Respiratory 18 18 Rate Blood Pressure 133/68 O2 Sat by Pulse 98 Oximetry Physical Exam: GENERAL: The patient is well-developed well-nourished female lying on stretcher not appearing to be in acute distress. [] HEENT: Normocephalic. Atraumatic. Extraocular motions are intact. Patient has moist mucous membranes. NECK: Supple. Trachea midline CHEST/LUNGS: Clear to auscultation. There is no respiratory distress noted. HEART/CARDIOVASCULAR: Regular. There is no tachycardia. There is no gallop rub or murmur. ABDOMEN: Abdomen is soft, with diffuse tenderness to palpation greatest in the right lower quadrant. There is no rebound or guarding. Positive obturator sign. Negative heel percussion. Patient has normal bowel sounds. There is no abdominal distention. SKIN: There is no rash. There is no edema. There is no diaphoresis. NEURO: The patient is awake, alert, and oriented. The patient is cooperative. The patient has no focal neurologic deficits. The patient has normal speech MUSCULOSKELETAL: There is no evidence of acute injury. ED Course Vital Signs 07/29/20 07/30/20 22:17 05:05 Temperature 98.8 F Pulse Rate 92 H Respiratory 18 18 Rate Blood Pressure 133/68 O2 Sat by Pulse 98 Oximetry ED Medical Decision Making - Lab Data Result diagrams: 07/29/20 23:04 07/29/20 23:04 Laboratory Tests 07/29/20 07/29/20 07/29/20 02:22 23:04 23:04 WBC 8.9 RBC 4.61 Hgb 10.4 Hct 32.6 MCV 71 L MCH 23 L MCHC 32 RDW 18.1 H Plt Count 347 Lymph % (Auto) 36.0 H [place] % (Auto) 6.3 Eos % (Auto) 1.4 Baso % (Auto) 0.3 Lymph # (Auto) 3.2 [place] # (Auto) 0.6 Eos # (Auto) 0.1 Baso # (Auto) 0.0 Seg Neutrophils % 56.0 Seg Neutrophils # 5.0 Sodium 139 Potassium 3.7 Chloride 101.2 Carbon Dioxide 22 Anion Gap 20 BUN 11 Creatinine 0.8 Estimated GFR > 60 BUN/Creatinine Ratio 14 Glucose 185 H Calcium 9.0 Total Bilirubin < 0.20 AST 18 ALT 17 Alkaline Phosphatase 91 Total Protein 7.7 Albumin 4.0 Albumin/Globulin Ratio 1.1 HCG, Qual Urine Color Yellow Urine Turbidity Clear Urine pH 6.0 Ur Specific [place] 1.002 L Urine Protein 30 mg/dl Urine Glucose (UA) Negative Urine Ketones Negative Urine Nitrite Negative Ur Reducing Substances Not Reportable Urine Bilirubin Negative Urine Ictotest Not Reportable Urine Urobilinogen 0.0 Ur Leukocyte Esterase Negative Urine WBC (Auto) < 1.0 Urine RBC (Auto) 7.0 U Epithel Cells (Auto) 1.0 Urine Mucus Few 07/29/20 23:04 WBC RBC Hgb Hct MCV MCH MCHC RDW Plt Count Lymph % (Auto) [place] % (Auto) Eos % (Auto) Baso % (Auto) Lymph # (Auto) [place] # (Auto) Eos # (Auto) Baso # (Auto) Seg Neutrophils % Seg Neutrophils # Sodium Potassium Chloride Carbon Dioxide Anion Gap BUN Creatinine Estimated GFR BUN/Creatinine Ratio Glucose Calcium Total Bilirubin AST ALT Alkaline Phosphatase Total Protein Albumin Albumin/Globulin Ratio HCG, Qual Negative Urine Color Urine Turbidity Urine pH Ur Specific [place] Urine Protein Urine Glucose (UA) Urine Ketones Urine Nitrite Ur Reducing Substances Urine Bilirubin Urine Ictotest Urine Urobilinogen Ur Leukocyte Esterase Urine WBC (Auto) Urine RBC (Auto) U Epithel Cells (Auto) Urine Mucus - Radiology Data Radiology results: report reviewed (Pelvic ultrasound, CT abdomen pelvis), image reviewed (Pelvic ultrasound, CT abdomen pelvis) [address] [address] Cat Scan Report Signed Patient: CARLOS FLORES MR#: [id number] : 1980 Acct:[id number] Age/Sex: 40 / F ADM Date: 07/29/20 Loc: ED Attending Dr: Ordering Physician: QUENTIN LERNER MD Date of Service: 07/30/20 Procedure(s): CT abdomen pelvis w con Accession Number(s): [id number] cc: QUENTIN LERNER MD CT OF THE ABDOMEN AND PELVIS WITH INTRAVENOUS CONTRAST INDICATION / CLINICAL INFORMATION: Right lower quadrant abdominal pain with vaginal bleeding. TECHNIQUE: The patient received 100 cc Omnipaque [address] scans at this location are performed using CT dose reduction for ALARA by means of automated exposure control. COMPARISON: None available. FINDINGS: ABDOMEN: There is a 1 mm nonobstructive right renal calculus. The liver, spleen, gallbladder, bile ducts, pancreas, adrenal glands, left kidney and bowel demonstrate no significant abnormality. No adenopathy is seen. There is chronic mosaic lung attenuation. PELVIS: The distal ureters and urinary bladder are normal. The uterus and adnexal regions are normal. A normal appendix is identified and there is no evidence of diverticulitis. No abnormal mass or fluid collection is seen. There is no evidence of hernia. There are moderate degenerative changes at the lumbosacral junction. IMPRESSION: No acute abnormality. Signer Name: Charles Shaw MD Signed: 07/30/2020 7:31 AM Workstation Name: [id number] Transcribed By: RT Dictated By: Charles Shaw MD Electronically Authenticated By: Charles Shaw MD Signed Date/Time: 07/30/20730 DD/ 7 TD/TT: Print Cancel [address] [address] Ultrasound Report Signed Patient: CARLOS FLORES MR#: [id number] : 1980 Acct:[id number] Age/Sex: 40 / F ADM Date: 07/29/20 Loc: ED Attending Dr: Ordering Physician: VIRGILIO BANDA MD Date of Service: 07/30/20 Procedure(s): US transvaginal Accession Number(s): [id number] cc: VIRGILIO BANDA MD TRANSABDOMINAL AND TRANSVAGINAL PELVIC ULTRASOUND INDICATION / CLINICAL INFORMATION: Pelvic pain, ovarian cyst, dysmenorrhea. COMPARISON: None available. FINDINGS: Transabdominal: The uterus and ovaries are not well seen. The urinary bladder is normal and no abnormal mass or fluid collection is seen. Transvaginal: The uterus measures 7.5 x 4.2 x 4.9 cm. The endometrial stripe measures 3.9 mm AP. No fibroids are seen. There are a couple of small nabothian cysts in the cervix. The right ovary measures 3.1 x 2.0 x 2.5 cm and the left ovary 3.1 x 1.7 x 2.6 cm. There is normal blood flow to both ovaries on Doppler exam. No abnormal mass or fluid collection is seen. IMPRESSION: Negative study. Signer Name: Charles Shaw MD Signed: 07/30/2020 6:56 AM Workstation Name: [id number] Transcribed By: RT Dictated By: Charles Shaw MD Electronically Authenticated By: Charles Shaw MD Signed Date/Time: 07/30/20655 DD/ 2 TD/TT: Print Cancel - Differential Diagnosis Ovarian cyst, ovarian torsion, appendicitis, renal colic, UTI, pyelonephrit Critical care attestation.: If time is entered above; I have spent that time in minutes in the direct care of this critically ill patient, excluding procedure time. ED Disposition Clinical Impression: Acute abdominal pain Disposition: DC-01 TO HOME OR SELFCARE Is pt being admited?: No Does the pt Need Aspirin: No Condition: Stable Instructions: Abdominal Pain (ED), Abdominal Pain, Adult, [id number], Pain Without a Known Cause Additional Instructions: Return to the emergency department should you develop worsening symptoms, inability to tolerate food or liquids, high fever or any other concerns Prescriptions: HYDROcodone/APAP 5-325 [[place] 5/325] 1 each PO Q6HR PRN #7 tablet PRN Reason: Pain Ondansetron [Zofran ODT TAB] 8 mg PO Q8HR #20 tab.rapdis Referrals: ALTAGRACIA WREN, MAI-C [Primary Care Provider] - 3-5 Days JOSE ANGEL MENA MD [Staff Physician] - 3-5 Days (Dr. Mena is an POLICE DETECTIVE. Please follow-up with her or your own POLICE DETECTIVE for further evaluation) Time of Disposition: 08:05
--- NOTE | 2020-07-30 07:00 | Ultrasound Report ---
TRANSABDOMINAL AND TRANSVAGINAL PELVIC ULTRASOUND INDICATION / CLINICAL INFORMATION: Pelvic pain, ovarian cyst, dysmenorrhea. COMPARISON: None available. FINDINGS: Transabdominal: The uterus and ovaries are not well seen. The urinary bladder is normal and no abnorm al mass or fluid collection is seen. Transvaginal: The uterus measures 7.5 x 4.2 x 4.9 cm. The endometrial stripe measures 3.9 mm AP. No f ibroids are seen. There are a couple of small nabothian cysts in the cervix. The right ovary measures 3.1 x 2.0 x 2.5 cm and the left ovary 3.1 x 1.7 x 2.6 cm. There is normal bl ood flow to both ovaries on Doppler exam. No abnormal mass or fluid collection is seen. IMPRESSION: Negative study. Signer Name: Charles Shaw MD Signed: 07/30/2020 6:56 AM Workstation Name: [id number]
--- NOTE | 2020-07-30 07:36 | Cat Scan Report ---
CT OF THE ABDOMEN AND PELVIS WITH INTRAVENOUS CONTRAST INDICATION / CLINICAL INFORMATION: Right lower quadrant abdominal pain with vaginal bleeding. TECHNIQUE: The patient received 100 cc Omnipaque [address] scans at this location are performed using CT dose reduction for ALARA by means of automated exposure control. COMPARISON: None available. FINDINGS: ABDOMEN: There is a 1 mm nonobstructive right renal calculus. The liver, spleen, gallbladder, bile du cts, pancreas, adrenal glands, left kidney and bowel demonstrate no significant abnormality. No adeno demar is seen. There is chronic mosaic lung attenuation. PELVIS: The distal ureters and urinary bladder are normal. The uterus and adnexal regions are normal. A normal appendix is identified and there is no evidence of diverticulitis. No abnormal mass or flui d collection is seen. There is no evidence of hernia. There are moderate degenerative changes at the lumbosacral junction. IMPRESSION: No acute abnormality. Signer Name: Charles Shaw MD Signed: 07/30/2020 7:31 AM Workstation Name: [id number]
== END 2020-07-30 08:34 | disposition home or self-care (01) ==
LOC: ED 22:15
DX: R10.31 Right lower quadrant pain (principal); I10 Essential (primary) hypertension; I25.2 Old myocardial infarction; E11.9 Type 2 diabetes mellitus without complications; F25.9 Schizoaffective disorder, unspecified; F17.200 Nicotine dependence, unspecified, uncomplicated; F12.90 Cannabis use, unspecified, uncomplicated; Z98.890 Other specified postprocedural states; Z79.899 Other long term (current) drug therapy; Z88.8 Allergy status to other drugs, medicaments and biological substances; Z91.012 Allergy to eggs
CPT/HCPCS: 36415; 74177; 76830; 80053; 81001; 84703; 85025; 93975; 96372; 99284; J1170; Q9967

== ENCOUNTER 2020-08-04 20:40 | Emergency (ER) | payer MEDICARE ==
[2020-08-04 22:39] VITALS: BP 154/93
[2020-08-04] MEDS ORDERED: SODIUM CHLORIDE 0.9% 1000 ML 1,000 ML IV ONE (22:44)
[2020-08-04] MEDS ORDERED: dexAMETHasone 20 MG/5 ML VIAL IV ONE (22:44)
--- NOTE | 2020-08-04 22:45 | Emergency Department Report ---
ED General Adult HPI - General Chief complaint: Pain General Stated complaint: LUPUS FLARE UP Source: patient Mode of arrival: Ambulatory Limitations: No Limitations - History of Present Illness Initial comments: 40-year-old -[place] female that is well-known to this provider presents to the emergency room reporting she feels her lupus is flaring up. Patient states that she had taken Tylenol. She reports that Suboxone is every 12 hours and was not due for her next dose. Patient denies any nausea no vomiting no chest pain. She reports just joint pain in her wrists and fingers. Denies any fever chills. Onset/Timin -: days(s) Location: upper extremity (joint), lower extremity (right knee) Severity scale (0 -10): 8 Quality: aching Improves with: none Worsens with: movement Associated Symptoms: nausea/vomiting (- vomiting). denies: chest pain, cough, headaches, shortness of breath - Related Data Home Medications Medication Instructions Recorded Confirmed Last Taken lisinopriL [Lisinopril] 20 mg PO DAILY 10/08/17 09/11/19 11/20/17 10:00 Zolpidem (Nf) [Ambien] 10 mg PO QHS 11/26/17 09/11/19 Unknown Detemir (Nf) [Levemir (Nf)] 60 units SUB-Q HS 11/27/17 09/11/19 1 Day Ago ~09/10/19 Previous Rx's Medication Instructions Recorded Last Taken Type Aspirin [Aspirin BABY CHEW TAB] 81 mg PO QDAY #30 tab.chew 06/12/17 11/20/17 10:00 Rx Insulin Detemir [Levemir Flextouch] 40 unit SQ QHS #4 insuln.pen 04/05/19 1 Day Ago Rx ~09/10/19 Clopidogrel [Plavix] 75 mg PO QDAY #30 tablet 07/20/19 1 Day Ago Rx ~09/10/19 Hydroxychloroquine [Plaquenil] 200 mg PO QDAY #20 tablet 07/20/19 Unknown Rx Insulin Glargine [Lantus VIAL] 50 unit SUB-Q QHS #1 vial 10/06/19 Unknown Rx metroNIDAZOLE [Flagyl] 500 mg PO BID 7 Days #14 tab 02/20/20 Unknown Rx Nitrofurantoin [place]/M-Cryst 100 mg PO Q12HR 10 Days #20 capsule 12/29/20 Unknown Rx [Macrobid CAP] Phenazopyridine [Pyridium] 100 mg PO TID #6 tab 04/01/20 Unknown Rx Prednisone [predniSONE 10 mg 10 mg PO .TAPER #1 tab.ds.pk 04/24/20 Unknown Rx (6-Day Pack, 21 Tabs)] cephALEXin [Keflex] 500 mg PO BID 3 Days #6 capsule 05/09/20 Unknown Rx metroNIDAZOLE [Flagyl] 500 mg PO BID 7 Days #14 tab 05/09/20 Unknown Rx Acetaminophen [Tylenol] 650 mg PO Q8HR PRN #20 capsule 05/16/20 Unknown Rx Menthol/Camphor [[place] 1 applicatio TP BID #18 oint...g. 05/16/20 Unknown Rx Ointment] Docusate Sodium [Colace] 100 mg PO BID PRN #20 capsule 05/20/20 Unknown Rx Ondansetron [Zofran Odt] 4 mg PO Q8HR PRN #20 tab.rapdis 05/20/20 Unknown Rx Polyethylene Glycol 3350 [Miralax] 17 gm PO DAILY PRN #7 dose 05/20/20 Unknown Rx Acetaminophen [Acetaminophen TAB] 1,000 mg PO Q6HR PRN #30 tablet 06/11/20 Unknown Rx Dicyclomine [Bentyl] 10 mg PO QID PRN #12 capsule 06/11/20 Unknown Rx Ondansetron [Zofran Odt] 4 mg PO Q8HR PRN #12 tab.rapdis 06/11/20 Unknown Rx Acetaminophen [Acetaminophen TAB] 1,000 mg PO Q6HR PRN #30 tablet 06/18/20 Unknown Rx Clindamycin [Clindamycin CAP] 300 mg PO Q8H 7 Days #21 cap 06/18/20 Unknown Rx Albuterol Mdi (or & Nicu Only) 2 puff IH QID PRN #8.5 gram 07/21/20 Unknown Rx [ProAir HFA Inhaler] levoFLOXacin [Levaquin] 750 mg PO QDAY #5 tablet 07/21/20 Unknown Rx HYDROcodone/APAP 5-325 [[place] 1 each PO Q6HR PRN #7 tablet 07/30/20 Unknown Rx 5/325] Ondansetron [Zofran ODT TAB] 8 mg PO Q8HR #20 tab.rapdis 07/30/20 Unknown Rx Allergies Allergy/AdvReac Type Severity Reaction Status Date / Time egg Allergy Hives Verified 08/04/20 22:34 piperacillin [From Zosyn] Allergy Hives Verified 08/04/20 22:34 tazobactam [From Zosyn] Allergy Hives Verified 08/04/20 22:34 tramadol HCl [From Ultram] Allergy Hives Verified 08/04/20 22:34 vancomycin Allergy Hives Verified 08/04/20 22:34 NSAIDS (Non-Steroidal AdvReac Vomiting Verified 08/04/20 22:34 Anti-Inflamma ED Review of Systems ROS: Stated complaint: LUPUS FLARE UP Other details as noted in HPI Comment: All other systems reviewed and negative ED Past Medical Hx - Past Medical History Hx Hypertension: Yes Hx CVA: No Hx Heart Attack/AMI: Yes (05/22, cardiac stent x1) Hx Congestive Heart Failure: No Hx Diabetes: Yes (type 2) Hx Deep Vein Thrombosis: No Hx Pulmonary Embolism: No Hx GERD: No Hx Liver Disease: No Hx Renal Disease: No Hx Sickle Cell Disease: No Hx Arthritis: No Hx Headaches / Migraines: No Hx Seizures: No Hx Kidney Stones: No 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 iron deficient anemia - Surgical History Hx Coronary Stent: Yes (x1) Hx Breast Surgery: Yes (breast reduction 05/2004) Additional Surgical History: Breast reduction bilateral,excisional surg. for abscess to breast groin and rectum - Social History Smoking Status: Current Every Day Smoker Substance Use Type: Marijuana - Medications Home Medications: Home Medications Medication Instructions Recorded Confirmed Last Taken Type Aspirin [Aspirin BABY CHEW TAB] 81 mg PO QDAY #30 tab.chew 06/12/17 09/11/19 11/20/17 10:00 Rx lisinopriL [Lisinopril] 20 mg PO DAILY 10/08/17 09/11/19 11/20/17 10:00 History Zolpidem (Nf) [Ambien] 10 mg PO QHS 11/26/17 09/11/19 Unknown History Detemir (Nf) [Levemir (Nf)] 60 units SUB-Q HS 11/27/17 09/11/19 1 Day Ago History ~09/10/19 Insulin Detemir [Levemir Flextouch] 40 unit SQ QHS #4 insuln.pen 04/05/19 09/11/19 1 Day Ago Rx ~09/10/19 Clopidogrel [Plavix] 75 mg PO QDAY #30 tablet 07/20/19 09/11/19 1 Day Ago Rx ~09/10/19 Hydroxychloroquine [Plaquenil] 200 mg PO QDAY #20 tablet 07/20/19 09/11/19 Unknown Rx Insulin Glargine [Lantus VIAL] 50 unit SUB-Q QHS #1 vial 10/06/19 Unknown Rx metroNIDAZOLE [Flagyl] 500 mg PO BID 7 Days #14 tab 02/20/20 Unknown Rx Nitrofurantoin [place]/M-Cryst 100 mg PO Q12HR 10 Days #20 capsule 04/01/20 Unknown Rx [Macrobid CAP] Phenazopyridine [Pyridium] 100 mg PO TID #6 tab 04/01/20 Unknown Rx Prednisone [predniSONE 10 mg 10 mg PO .TAPER #1 tab.ds.pk 04/24/20 Unknown Rx (6-Day Pack, 21 Tabs)] cephALEXin [Keflex] 500 mg PO BID 3 Days #6 capsule 05/09/20 Unknown Rx metroNIDAZOLE [Flagyl] 500 mg PO BID 7 Days #14 tab 05/09/20 Unknown Rx Acetaminophen [Tylenol] 650 mg PO Q8HR PRN #20 capsule 05/16/20 Unknown Rx Menthol/Camphor [[place] 1 applicatio TP BID #18 oint...g. 05/16/20 Unknown Rx Ointment] Docusate Sodium [Colace] 100 mg PO BID PRN #20 capsule 05/20/20 Unknown Rx Ondansetron [Zofran Odt] 4 mg PO Q8HR PRN #20 tab.rapdis 05/20/20 Unknown Rx Polyethylene Glycol 3350 [Miralax] 17 gm PO DAILY PRN #7 dose 05/20/20 Unknown Rx Acetaminophen [Acetaminophen TAB] 1,000 mg PO Q6HR PRN #30 tablet 06/11/20 Unknown Rx Dicyclomine [Bentyl] 10 mg PO QID PRN #12 capsule 06/11/20 Unknown Rx Ondansetron [Zofran Odt] 4 mg PO Q8HR PRN #12 tab.rapdis 06/11/20 Unknown Rx Acetaminophen [Acetaminophen TAB] 1,000 mg PO Q6HR PRN #30 tablet 06/18/20 Unknown Rx Clindamycin [Clindamycin CAP] 300 mg PO Q8H 7 Days #21 cap 06/18/20 Unknown Rx Albuterol Mdi (or & Nicu Only) 2 puff IH QID PRN #8.5 gram 07/21/20 Unknown Rx [ProAir HFA Inhaler] levoFLOXacin [Levaquin] 750 mg PO QDAY #5 tablet 07/21/20 Unknown Rx HYDROcodone/APAP 5-325 [[place] 1 each PO Q6HR PRN #7 tablet 07/30/20 Unknown Rx 5/325] Ondansetron [Zofran ODT TAB] 8 mg PO Q8HR #20 tab.rapdis 07/30/20 Unknown Rx ED Physical Exam - General Limitations: No Limitations General appearance: alert, in no apparent distress - Head Head exam: Present: atraumatic, normocephalic - Eye Eye exam: Present: normal appearance - ENT ENT exam: Present: mucous membranes moist - Respiratory Respiratory exam: Present: normal lung sounds bilaterally. Absent: respiratory distress, accessory muscle use - Cardiovascular Cardiovascular Exam: Present: regular rate ED Course Vital Signs 08/04/20 22:37 Temperature 98.6 F Pulse Rate 66 Respiratory 16 Rate Blood Pressure 154/93 O2 Sat by Pulse 100 Oximetry ED Medical Decision Making - Medical Decision Making 40-year-old -[place] female that is well-known to this provider presents to the emergency room reporting she feels her lupus is flaring up. Patient states that she had taken Tylenol. She reports that Suboxone is every 12 hours and was not due for her next dose. Patient denies any nausea no vomiting no chest pain. She reports just joint pain in her wrists and fingers. Denies any fever chills. Critical care attestation.: If time is entered above; I have spent that time in minutes in the direct care of this critically ill patient, excluding procedure time. ED Disposition Clinical Impression: Lupus Disposition: DC-01 TO HOME OR SELFCARE Is pt being admited?: No Does the pt Need Aspirin: No Condition: Stable Instructions: Systemic Lupus Erythematosus, Adult Additional Instructions: Please increase your fluid intake. Continue with your Suboxone. Follow-up with your plunket nurse. Referrals: PRIMARY CARE, [Primary Care Provider] - 3-5 Days Forms: Work/School Release Form(ED)
[2020-08-05] MEDS ORDERED: predniSONE 20 MG TAB PO ONE (04:13)
[2020-08-05] MEDS ORDERED: ONDANSETRON 4 MG ODT TAB PO ONE ×2 (04:20→04:28)
== END 2020-08-05 01:00 | disposition home or self-care (01) ==
LOC: ED 20:40
DX: M32.8 Other forms of systemic lupus erythematosus (principal); I10 Essential (primary) hypertension; I25.2 Old myocardial infarction; E11.9 Type 2 diabetes mellitus without complications; F25.0 Schizoaffective disorder, bipolar type; F17.200 Nicotine dependence, unspecified, uncomplicated; F12.10 Cannabis abuse, uncomplicated; Z79.82 Long term (current) use of aspirin; Z79.899 Other long term (current) drug therapy; Z91.012 Allergy to eggs; Z88.8 Allergy status to other drugs, medicaments and biological substances
CPT/HCPCS: 99282; J7512; Q0162

== ENCOUNTER 2020-12-08 01:39 | Emergency (ER) | payer MEDICARE ==
[2020-12-08 04:22] VITALS: BP 147/100
--- NOTE | 2020-12-08 04:54 | Event Note ---
ED Screening Note Date of service: 12/08/20 Time: 04:52 ED Screening Note: Patient is a 40-year-old -[place] female with a history of SLE, [id number] diabetes and hypertension who presents to the ED with complaint of acute onset persistent fever, chills, diffuse body aches and pains, worsening joint pains for the last 2 days. Patient states that she has been taking her medications for SLE with no relief. Patient states that she has been taking Tylenol as well for fever. Patient denies dizziness, syncope, chest pain, nausea and vomiting or diarrhea, dysuria, urinary frequency and urgency, chest pain or shortness of breath. This initial assessment/diagnostic orders/clinical plan/treatment(s) is/are subject to change based on patients health status, clinical progression and re- assessment by fellow clinical providers in the ED. Further treatment and workup at subsequent clinical providers discretion. Patient/guardian urged not to elope from the ED as their condition may be serious if not clinically assessed and managed. Initial orders include: CBC, CMP, UA, serum hCG, chest x-ray
[2020-12-08 05:12] LABS: Bacteria,Urine 1+ /HPF (Negative); Bilirubin,Urine NEG (Negative); Blood,Urine NEG (Negative); Color,Urine Yellow (Yellow); Mucus,Urine FEW /HPF; Protein,Urine <15 mg/dL mg/dL (Negative)
[2020-12-08] MEDS ORDERED: HYDROmorphone 1 MG/1 ML INJ IM ONE (06:58)
--- NOTE | 2020-12-08 07:04 | Emergency Department Report ---
ED General Adult HPI - General Chief complaint: Pain General Stated complaint: LUPUS FLARE/JOINT/MUSCLE PN PUI?: No Time Seen by Provider: 12/08/20 06:51 Source: patient, RN notes reviewed, old records reviewed Mode of arrival: Ambulatory Limitations: No Limitations - History of Present Illness Initial comments: The patient was evaluated in the emergency department for symptoms described in the history of present illness. He/she was evaluated in the context of the global COVID-19 pandemic, which necessitated consideration that the patient might be at risk for infection with the virus that causes COVID-19. Institutional protocols and algorithms that pertain to the evaluation of patients at risk for COVID-19 are in a state of rapid change based on information released by regulatory bodies including the CDC and federal and state organizations. These policies and algorithms were followed during the patient's care in the emergency department. Please note that these policies, procedures and recommendations changed on a rapid basis. During the history and physical examination, I am chaperoned by Martina Dowling The patient is a 40-year-old female who presents to the ER today with complaints of diffuse arthralgias. The patient states she has a history of lupus, and is currently maintained on steroids and Plaquenil. Additional past medical history includes chronic pain, hypertension, diabetes, and hidradenitis. Patient states that she is not currently . The patient states that she is up-to-date on Covid vaccine. The patient states she presents to the ER because she called her manufacturing controller phone number/hotline, and nursing instruction directed her to the emergency room. The patient complains of diffuse arthralgias in her bilateral ankles, hands, wrists and elbows. This has been present for a few weeks. She denies severe headache, midline neck pain, chest pain, abdominal pain, new/different shortness of breath, dysuria. She denies cough and chest pain. She has been taking Tylenol as prescribed. Her manufacturing controller last week during her visit continued on steroids, continued on Plaquenil. She is also given a follow-up to an outpatient pain specialist, but she reports "it is taking a long time to get the appointment." Her pain is aching, throbbing, increases with palpation and decreases with rest. -: Gradual, week(s) Location: left, right, upper extremity, lower extremity Quality: aching Consistency: constant Improves with: rest Worsens with: movement - Related Data Home Medications Medication Instructions Recorded Confirmed Last Taken lisinopriL [Lisinopril] 20 mg PO DAILY 10/08/17 09/11/19 11/20/17 10:00 Zolpidem (Nf) [Ambien] 10 mg PO QHS 11/26/17 09/11/19 Unknown Detemir (Nf) [Levemir (Nf)] 60 units SUB-Q HS 11/27/17 09/11/19 1 Day Ago ~09/10/19 Previous Rx's Medication Instructions Recorded Last Taken Type Aspirin [Aspirin BABY CHEW TAB] 81 mg PO QDAY #30 tab.chew 06/12/17 11/20/17 10:00 Rx Insulin Detemir [Levemir Flextouch] 40 unit SQ QHS #4 insuln.pen 04/05/19 1 Day Ago Rx ~09/10/19 Clopidogrel [Plavix] 75 mg PO QDAY #30 tablet 07/20/19 1 Day Ago Rx ~09/10/19 Hydroxychloroquine [Plaquenil] 200 mg PO QDAY #20 tablet 07/20/19 Unknown Rx Insulin Glargine [Lantus VIAL] 50 unit SUB-Q QHS #1 vial 10/06/19 Unknown Rx metroNIDAZOLE [Flagyl] 500 mg PO BID 7 Days #14 tab 02/20/20 Unknown Rx Nitrofurantoin [place]/M-Cryst 100 mg PO Q12HR 10 Days #20 capsule 04/01/20 Unknown Rx [Macrobid CAP] Phenazopyridine [Pyridium] 100 mg PO TID #6 tab 04/01/20 Unknown Rx Prednisone [predniSONE 10 mg 10 mg PO .TAPER #1 tab.ds.pk 04/24/20 Unknown Rx (6-Day Pack, 21 Tabs)] cephALEXin [Keflex] 500 mg PO BID 3 Days #6 capsule 05/09/20 Unknown Rx metroNIDAZOLE [Flagyl] 500 mg PO BID 7 Days #14 tab 05/09/20 Unknown Rx Acetaminophen [Tylenol] 650 mg PO Q8HR PRN #20 capsule 05/16/20 Unknown Rx Menthol/Camphor [[place] Hasty 1 applicatio TP BID #18 oint...g. 05/16/20 Unknown Rx Ointment] Docusate Sodium [Colace] 100 mg PO BID PRN #20 capsule 05/20/20 Unknown Rx Ondansetron [Zofran Odt] 4 mg PO Q8HR PRN #20 tab.rapdis 05/20/20 Unknown Rx Polyethylene Glycol 3350 [Miralax] 17 gm PO DAILY PRN #7 dose 05/20/20 Unknown Rx Acetaminophen [Acetaminophen TAB] 1,000 mg PO Q6HR PRN #30 tablet 06/11/20 Unknown Rx Dicyclomine [Bentyl] 10 mg PO QID PRN #12 capsule 06/11/20 Unknown Rx Ondansetron [Zofran Odt] 4 mg PO Q8HR PRN #12 tab.rapdis 06/11/20 Unknown Rx Acetaminophen [Acetaminophen TAB] 1,000 mg PO Q6HR PRN #30 tablet 06/18/20 Unknown Rx Clindamycin [Clindamycin CAP] 300 mg PO Q8H 7 Days #21 cap 06/18/20 Unknown Rx Albuterol Mdi (or & Nicu Only) 2 puff IH QID PRN #8.5 gram 07/21/20 Unknown Rx [ProAir HFA Inhaler] levoFLOXacin [Levaquin] 750 mg PO QDAY #5 tablet 07/21/20 Unknown Rx HYDROcodone/APAP 5-325 [[place] 1 each PO Q6HR PRN #7 tablet 07/30/20 Unknown Rx 5/325] Ondansetron [Zofran ODT TAB] 8 mg PO Q8HR #20 tab.rapdis 07/30/20 Unknown Rx Allergies Allergy/AdvReac Type Severity Reaction Status Date / Time egg Allergy Hives Verified 08/04/20 22:34 piperacillin [From Zosyn] Allergy Hives Verified 08/04/20 22:34 tazobactam [From Zosyn] Allergy Hives Verified 08/04/20 22:34 tramadol HCl [From Ultram] Allergy Hives Verified 08/04/20 22:34 vancomycin Allergy Hives Verified 08/04/20 22:34 NSAIDS (Non-Steroidal AdvReac Vomiting Verified 08/04/20 22:34 Anti-Inflamma ED Review of Systems ROS: Stated complaint: LUPUS FLARE/JOINT/MUSCLE PN Other details as noted in HPI Constitutional: denies: fever, weakness Eyes: denies: eye discharge ENT: denies: epistaxis Respiratory: denies: cough Cardiovascular: denies: chest pain Gastrointestinal: denies: abdominal pain, nausea, vomiting, diarrhea Genitourinary: denies: dysuria Musculoskeletal: back pain, arthralgia, myalgia Skin: denies: rash, lesions Neurological: denies: headache, numbness ED Past Medical Hx - Past Medical History Hx Hypertension: Yes Hx CVA: No Hx Heart Attack/AMI: Yes (05/22, cardiac stent x1) Hx Congestive Heart Failure: No Hx Diabetes: Yes (type 2) Hx Deep Vein Thrombosis: No Hx Pulmonary Embolism: No Hx GERD: No Hx Liver Disease: No Hx Renal Disease: No Hx Sickle Cell Disease: No Hx Arthritis: No Hx Headaches / Migraines: No Hx Seizures: No Hx Kidney Stones: No 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 iron deficient anemia - Surgical History Hx Coronary Stent: Yes (x1) Hx Breast Surgery: Yes (breast reduction 05/2004) Additional Surgical History: Breast reduction bilateral,excisional surg. for abscess to breast groin and rectum - Social History Smoking Status: Current Every Day Smoker Substance Use Type: Marijuana - Medications Home Medications: Home Medications Medication Instructions Recorded Confirmed Last Taken Type Aspirin [Aspirin BABY CHEW TAB] 81 mg PO QDAY #30 tab.chew 06/12/17 09/11/19 11/20/17 10:00 Rx lisinopriL [Lisinopril] 20 mg PO DAILY 10/08/17 09/11/19 11/20/17 10:00 History Zolpidem (Nf) [Ambien] 10 mg PO QHS 11/26/17 09/11/19 Unknown History Detemir (Nf) [Levemir (Nf)] 60 units SUB-Q HS 11/27/17 09/11/19 1 Day Ago History ~09/10/19 Insulin Detemir [Levemir Flextouch] 40 unit SQ QHS #4 insuln.pen 04/05/19 09/11/19 1 Day Ago Rx ~09/10/19 Clopidogrel [Plavix] 75 mg PO QDAY #30 tablet 07/20/19 09/11/19 1 Day Ago Rx ~06/08/20 Hydroxychloroquine [Plaquenil] 200 mg PO QDAY #20 tablet 07/20/19 09/11/19 Unknown Rx Insulin Glargine [Lantus VIAL] 50 unit SUB-Q QHS #1 vial 10/06/19 Unknown Rx metroNIDAZOLE [Flagyl] 500 mg PO BID 7 Days #14 tab 02/20/20 Unknown Rx Nitrofurantoin [place]/M-Cryst 100 mg PO Q12HR 10 Days #20 capsule 04/01/20 Unknown Rx [Macrobid CAP] Phenazopyridine [Pyridium] 100 mg PO TID #6 tab 04/01/20 Unknown Rx Prednisone [predniSONE 10 mg 10 mg PO .TAPER #1 tab.ds.pk 04/24/20 Unknown Rx (6-Day Pack, 21 Tabs)] cephALEXin [Keflex] 500 mg PO BID 3 Days #6 capsule 05/09/20 Unknown Rx metroNIDAZOLE [Flagyl] 500 mg PO BID 7 Days #14 tab 05/09/20 Unknown Rx Acetaminophen [Tylenol] 650 mg PO Q8HR PRN #20 capsule 05/16/20 Unknown Rx Menthol/Camphor [[place] Hasty 1 applicatio TP BID #18 oint...g. 05/16/20 Unknown Rx Ointment] Docusate Sodium [Colace] 100 mg PO BID PRN #20 capsule 05/20/20 Unknown Rx Ondansetron [Zofran Odt] 4 mg PO Q8HR PRN #20 tab.rapdis 05/20/20 Unknown Rx Polyethylene Glycol 3350 [Miralax] 17 gm PO DAILY PRN #7 dose 05/20/20 Unknown Rx Acetaminophen [Acetaminophen TAB] 1,000 mg PO Q6HR PRN #30 tablet 06/11/20 Unknown Rx Dicyclomine [Bentyl] 10 mg PO QID PRN #12 capsule 06/11/20 Unknown Rx Ondansetron [Zofran Odt] 4 mg PO Q8HR PRN #12 tab.rapdis 06/11/20 Unknown Rx Acetaminophen [Acetaminophen TAB] 1,000 mg PO Q6HR PRN #30 tablet 06/18/20 Unknown Rx Clindamycin [Clindamycin CAP] 300 mg PO Q8H 7 Days #21 cap 06/18/20 Unknown Rx Albuterol Mdi (or & Nicu Only) 2 puff IH QID PRN #8.5 gram 07/21/20 Unknown Rx [ProAir HFA Inhaler] levoFLOXacin [Levaquin] 750 mg PO QDAY #5 tablet 07/21/20 Unknown Rx HYDROcodone/APAP 5-325 [[place] 1 each PO Q6HR PRN #7 tablet 07/30/20 Unknown Rx 5/325] Ondansetron [Zofran ODT TAB] 8 mg PO Q8HR #20 tab.rapdis 07/30/20 Unknown Rx ED Physical Exam - General Limitations: No Limitations General appearance: alert, in no apparent distress - Head Head exam: Present: atraumatic, normocephalic - Eye Eye exam: Present: normal appearance, EOMI. Absent: nystagmus - ENT ENT exam: Present: normal exam, normal orophraynx, mucous membranes moist, normal external ear exam - Neck Neck exam: Present: normal inspection, full ROM. Absent: tenderness, meningismus - Respiratory Respiratory exam: Present: normal lung sounds bilaterally. Absent: respiratory distress, wheezes, rales, rhonchi, stridor, decreased breath sounds - Cardiovascular Cardiovascular Exam: Present: regular rate, normal rhythm, normal heart sounds. Absent: bradycardia, tachycardia, irregular rhythm, systolic murmur, diastolic murmur, rubs, gallop - GI/Abdominal GI/Abdominal exam: Present: soft. Absent: distended, tenderness, guarding, rebound, rigid, pulsatile mass - Extremities Exam Extremities exam: Present: normal inspection (There is no redness, pus, s treaking, warmth over the joints.), full ROM, tenderness (There is minimal bilateral ankle, bilateral knee, bilateral wrists, and bilateral elbow tenderness.), other (2+ pulses noted in the bilateral upper and lower extremities. There is no palpable cord. negative Homans sign. Muscular compartments are soft. The pelvis is stable.). Absent: pedal edema, calf tenderness - Back Exam Back exam: Present: normal inspection, paraspinal tenderness. Absent: tenderness, CVA tenderness (R), CVA tenderness (L) - Neurological Exam Neurological exam: Present: alert, oriented X3, normal gait, other (No facial droop. Tongue midline. Extraocular movements intact bilaterally. Facial sensation intact to light touch in V1, V2, V3 distribution bilaterally. 5 and a 5 strength in 4 extremities. Sensation intact to light touch in 4 extremities.). Absent: motor sensory deficit - Psychiatric Psychiatric exam: Present: normal affect, normal mood - Skin Skin exam: Present: warm, dry, intact, normal color. Absent: rash ED Course Vital Signs 12/08/20 03:51 Temperature 98.1 F Pulse Rate 71 Respiratory 18 Rate Blood Pressure 147/100 O2 Sat by Pulse 99 Oximetry ED Medical Decision Making - Lab Data Vital Signs 12/08/20 03:51 Temperature 98.1 F Pulse Rate 71 Respiratory 18 Rate Blood Pressure 147/100 O2 Sat by Pulse 99 Oximetry Lab Results 12/08/20 Range/Units 04:58 Urine Color Yellow (Yellow) Urine Turbidity Clear (Clear) Urine pH 5.0 (5.0-7.0) Ur Specific Cornelius 1.016 (1.003-1.030) Urine Protein <15 mg/dl (Negative) mg/dL Urine Glucose (UA) 50 (Negative) mg/dL Urine Ketones Neg (Negative) mg/dL Urine Blood Neg (Negative) Urine Nitrite Neg (Negative) Urine Bilirubin Neg (Negative) Urine Urobilinogen 2.0 (<2.0) mg/dL Ur Leukocyte Esterase Neg (Negative) Urine WBC (Auto) 5.0 (0.0-6.0) /HPF Urine RBC (Auto) 2.0 (0.0-6.0) /HPF U Epithel Cells (Auto) 14.0 H (0-13.0) /HPF Urine Bacteria (Auto) 1+ (Negative) /HPF Urine Mucus Few /HPF - Medical Decision Making Differential diagnosis, including but not limited to: Acute exacerbation of chronic pain, encounter for medical screening examination, chronic lupus, lupus flare Assessment and plan: 40-year-old female, who is afebrile, with reassuring vital signs, who walks with a steady gait, who states that she is not , who presents to the ER with a few weeks of polyarthritis. She saw her manufacturing controller at [place] last week, whom she states is continuing her on Plaquenil, and started a steroid burst. She denies cough, chest pain, abdominal pain, dysuria. Her physical examination is fairly unremarkable. Specifically, over the involved joints, there is no redness, effusion which is significant, evidence of pus, streaking, or significant limitations in range of motion. The patient's main issue today appears to be acute pain control. Review of chart indicates this patient has received hydromorphone in the past. She prefers and states she cannot take NSAIDs secondary to her chronic medications which include Plavix. She is taking Tylenol as prescribed [id number]. There is no right upper quadrant tenderness. There is no jaundice. Patient will be medicated with a one-time dose of hydromorphone. We talked about alternative and complementary therapies. She states that she is going to follow-up with outpatient pain clinic. Return precautions are reviewed. Critical care attestation.: If time is entered above; I have spent that time in minutes in the direct care of this critically ill patient, excluding procedure time. ED Disposition Clinical Impression: History of lupus, Polyarthralgia Disposition: 01 HOME / SELF CARE / HOMELESS Is pt being admited?: No Does the pt Need Aspirin: No Condition: Good Instructions: Musculoskeletal Pain Additional Instructions: Please continue current outpatient medications. Patient may alternate ice packs and heat packs as needed for physical pain. Patient may also pursue complementary therapies for pain control as we discussed, such as massage, acupuncture, and nonweightbearing aquatic exercise. Please continue your current outpatient medications of pain medications. Please follow-up with your primary care doctor or manufacturing controller within the next 5 to 7 days for repeat checkup and evaluation. Follow-up with a pain specialist within the next 2 weeks. For the patient's convenience, a number of local pain specialist have been listed in this discharge paperwork. Please return to the emergency room right away with new pain, worsened pain, migration of pain, projectile vomiting, change in mental status, confusion, inability to tolerate liquid feeds, severe pain such that the patient cannot move the joint, fever greater than 100.4 degrees, or any significant redness, warmth, swelling over the joint, or inability to range/move the joint. Referrals: Todd CORBIN MD [Staff Physician] - 3-5 Days KATHY RAZO MD [Staff Physician] - 3-5 Days SHEREEN AHN MD [Referring] - 3-5 Days
== END 2020-12-08 07:17 | disposition home or self-care (01) ==
LOC: ED 01:39
DX: M25.50 Pain in unspecified joint (principal); M32.9 Systemic lupus erythematosus, unspecified; I10 Essential (primary) hypertension; E11.8 Type 2 diabetes mellitus with unspecified complications; F25.0 Schizoaffective disorder, bipolar type; L73.2 Hidradenitis suppurativa; D50.9 Iron deficiency anemia, unspecified; Z98.890 Other specified postprocedural states; F17.290 Nicotine dependence, other tobacco product, uncomplicated; Z88.0 Allergy status to penicillin; Z88.1 Allergy status to other antibiotic agents; Z88.5 Allergy status to narcotic agent; Z88.6 Allergy status to analgesic agent; Z91.012 Allergy to eggs
CPT/HCPCS: 81001; 99282; J1170

== ENCOUNTER 2020-12-21 02:28 | Emergency (ER) | payer MEDICARE ==
[2020-12-21 03:41] VITALS: BP 149/92
[2020-12-21] MEDS ORDERED: MORPHINE 4 MG/1 ML INJ IM STA (06:05)
[2020-12-21] MEDS ORDERED: methylPREDNISolone Sod Succinate 125 MG/2 ML INJ IM ONE (06:05)
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
== END 2020-12-21 07:09 | disposition home or self-care (01) ==
LOC: ED 02:28
DX: M32.9 Systemic lupus erythematosus, unspecified (principal); G89.29 Other chronic pain; M13.0 Polyarthritis, unspecified; Z88.5 Allergy status to narcotic agent; Z88.0 Allergy status to penicillin; Z88.8 Allergy status to other drugs, medicaments and biological substances; Z88.1 Allergy status to other antibiotic agents; Z91.012 Allergy to eggs; Z86.79 Personal history of other diseases of the circulatory system; I10 Essential (primary) hypertension; E11.8 Type 2 diabetes mellitus with unspecified complications
CPT/HCPCS: 96372; 99282; J2270; J2930

== ENCOUNTER 2021-05-26 04:43 | Emergency (ER) | payer MEDICARE ==
[2021-05-26 05:42] VITALS: BP 139/82
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
[2021-05-26] MEDS ORDERED: MORPHINE 4 MG/1 ML INJ IM ONE (10:23)
== END 2021-05-26 10:51 | disposition home or self-care (01) ==
LOC: ED 04:43
DX: M54.50 Low back pain, unspecified (principal); L93.0 Discoid lupus erythematosus; I10 Essential (primary) hypertension; E11.9 Type 2 diabetes mellitus without complications; I21.9 Acute myocardial infarction, unspecified; F31.9 Bipolar disorder, unspecified; Z98.890 Other specified postprocedural states; V49.69XA Unspecified car occupant injured in collision with other motor vehicles in traffic accident, initial encounter; Y93.89 Activity, other specified; Y92.89 Other specified places as the place of occurrence of the external cause; Y99.8 Other external cause status
CPT/HCPCS: 72100; 96372; 99283; J2270

== ENCOUNTER 2021-06-21 20:07 | Emergency (ER) | payer MEDICARE ==
--- NOTE | 2021-06-21 21:46 | XRay Report ---
CHEST 2 VIEWS INDICATION / CLINICAL INFORMATION: CHEST PAIN. FINDINGS: SUPPORT DEVICES: None. HEART / MEDIASTINUM: No significant abnormality. LUNGS / PLEURA: No significant pulmonary or pleural abnormality. No pneumothorax. ADDITIONAL FINDINGS: No significant additional findings. IMPRESSION: 1. No acute findings. Signer Name: Dwayne Ochoa MD Signed: 06/21/2021 9:42 PM Workstation Name: [id number]
[2021-06-21 23:12] LABS: Basophils # (Auto) 0.1 K/mm3 (0.0-0.1); Basophils % (Auto) 0.6 % (0.0-1.8); Eosinophils # (Auto) 0.1 K/mm3 (0.0-0.4); Eosinophils % (Auto) 0.9 % (0.0-4.3); Hematocrit 39.9 % (30.3-42.9); Lymphocytes # (Auto) 3.4 K/mm3 (1.2-5.4); Lymphocytes % (Auto) 31.9 % (13.4-35.0); Mean Corpuscular HGB Conc 33 % (30-34); Mean Corpuscular Volume 80 fl (79-97); Monocytes # (Auto) 0.5 K/mm3 (0.0-0.8); Monocytes % (Auto) 4.4 % (0.0-7.3); Platelet Count 268 K/mm3 (140-440); Red Blood Count 4.99 M/mm3 (3.65-5.03)
[2021-06-21 23:35] LABS: Alanine Aminotransferase 16 units/L (7-56); Albumin 4.6 g/dL (3.9-5); Blood Urea Nitrogen 12 mg/dL (7-17); Calcium 9.3 mg/dL (8.4-10.2); Hemolysis Index 12
[2021-06-21 23:37] LABS: BUN/Creatinine Ratio 20
[2021-06-22] MEDS ORDERED: methylPREDNISolone Sod Succinate 125 MG/2 ML INJ IM ONE (03:22)
[2021-06-22] MEDS ORDERED: fentaNYL 100 MCG/2 ML INJ IM ONE (03:22)
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
[2021-06-22] MEDS ORDERED: ACETAMINOPHEN W/CODEINE 300-30 MG TAB PO ONE (05:48)
[2021-06-22] MEDS ORDERED: ONDANSETRON 4 MG ODT TAB PO ONE (05:48)
[2021-06-22] MEDS ORDERED: oxyCODONE /ACETAMINOPHEN 5-325MG TAB PO PRN (05:51)
[2021-06-22 05:53] VITALS: BP 144/93
--- NOTE | 2021-06-22 09:19 | Electrocardiograph Report ---
[facility] Test Date: 2021-06-21 Test Time: 21:09:50 Pat Name: CARLOS FLORES Department: Room: Gender: F [employer]: [id number] : 1980 Requested By: IMELDA CAIN Order Number: [id number] Reading MD: Adam De La Rosa Measurements Intervals Raymond Rate: 65 P: 70 TX: 142 QRS: 50 QRSD: 89 T: -41 QT: 366 QTc: 373 Interpretive Statements Sinus rhythm Atrial premature complex Nonspecific T abnormalities, inferior leads Compared to ECG 07/21/2020 03:43:36 No significant change Electronically Signed On 06-22-2021 9:18:49 EDT by Adam De La Rosa
== END 2021-06-22 06:01 | disposition home or self-care (01) ==
LOC: ED 20:07
DX: R07.9 Chest pain, unspecified (principal); M32.10 Systemic lupus erythematosus, organ or system involvement unspecified; M13.0 Polyarthritis, unspecified
CPT/HCPCS: 36415; 71046; 80053; 84484; 85025; 93005; 96372; 99284; J2930; J3010; J3490; Q0162

== ENCOUNTER 2021-07-06 13:35 | Emergency (ER) | payer MEDICARE ==
[2021-07-06 16:52] VITALS: BP 117/83
[2021-07-06] MEDS ORDERED: oxyCODONE /ACETAMINOPHEN 5-325MG TAB PO ONE (19:25)
--- NOTE | 2021-07-06 19:27 | Emergency Department Report ---
ED General Adult HPI - General Chief complaint: Medical Clearance Stated complaint: LUPUS FLARE UP /FEVER JOINT PAIN Time Seen by Provider: 07/06/21 19:15 Source: patient Mode of arrival: Ambulatory Limitations: No Limitations - History of Present Illness Initial comments: Patient is a 41-year-old female presents emergency room complaints of diffuse joint aches over the last couple days. She states that she ran out of her pain medication that she takes chronically at home. She states that she cannot get into her doctor until Tuesday07/10/2021. She reports that she has had a fever. She denies any diarrhea, cough, shortness of breath, pleuritic pain, swelling. pt has multiple medication allergies documented. - Related Data Home Medications Medication Instructions Recorded Confirmed Last Taken lisinopriL [Lisinopril] 20 mg PO DAILY 10/08/17 09/11/19 11/20/17 10:00 Zolpidem (Nf) [Ambien] 10 mg PO QHS 11/26/17 09/11/19 Unknown Detemir (Nf) [Levemir (Nf)] 60 units SUB-Q HS 11/27/17 09/11/19 1 Day Ago ~09/10/19 Previous Rx's Medication Instructions Recorded Last Taken Type Aspirin [Aspirin BABY CHEW TAB] 81 mg PO QDAY #30 tab.chew 06/12/17 11/20/17 10:00 Rx Insulin Detemir [Levemir Flextouch] 40 unit SQ QHS #4 insuln.pen 04/05/19 1 Day Ago Rx ~09/10/19 Clopidogrel [Plavix] 75 mg PO QDAY #30 tablet 07/20/19 1 Day Ago Rx ~09/10/19 Hydroxychloroquine [Plaquenil] 200 mg PO QDAY #20 tablet 07/20/19 Unknown Rx Insulin Glargine [Lantus VIAL] 50 unit SUB-Q QHS #1 vial 10/06/19 Unknown Rx metroNIDAZOLE [Flagyl] 500 mg PO BID 7 Days #14 tab 02/20/20 Unknown Rx Nitrofurantoin [place]/M-Cryst 100 mg PO Q12HR 10 Days #20 capsule 04/01/20 Unknown Rx [Macrobid CAP] Phenazopyridine [Pyridium] 100 mg PO TID #6 tab 04/01/20 Unknown Rx Prednisone [predniSONE 10 mg 10 mg PO .TAPER #1 tab.ds.pk 04/24/20 Unknown Rx (6-Day Pack, 21 Tabs)] cephALEXin [Keflex] 500 mg PO BID 3 Days #6 capsule 05/09/20 Unknown Rx metroNIDAZOLE [Flagyl] 500 mg PO BID 7 Days #14 tab 05/09/20 Unknown Rx Acetaminophen [Tylenol] 650 mg PO Q8HR PRN #20 capsule 05/16/20 Unknown Rx Menthol/Camphor [[place] 1 applicatio TP BID #18 oint...g. 05/16/20 Unknown Rx Ointment] Docusate Sodium [Colace] 100 mg PO BID PRN #20 capsule 05/20/20 Unknown Rx Ondansetron [Zofran Odt] 4 mg PO Q8HR PRN #20 tab.rapdis 05/20/20 Unknown Rx Polyethylene Glycol 3350 [Miralax] 17 gm PO DAILY PRN #7 dose 05/20/20 Unknown Rx Acetaminophen [Acetaminophen TAB] 1,000 mg PO Q6HR PRN #30 tablet 06/11/20 Unknown Rx Dicyclomine [Bentyl] 10 mg PO QID PRN #12 capsule 06/11/20 Unknown Rx Ondansetron [Zofran Odt] 4 mg PO Q8HR PRN #12 tab.rapdis 06/11/20 Unknown Rx Acetaminophen [Acetaminophen TAB] 1,000 mg PO Q6HR PRN #30 tablet 06/18/20 Unknown Rx Clindamycin [Clindamycin CAP] 300 mg PO Q8H 7 Days #21 cap 06/18/20 Unknown Rx Albuterol Mdi (or & Nicu Only) 2 puff IH QID PRN #8.5 gram 07/21/20 Unknown Rx [ProAir HFA Inhaler] levoFLOXacin [Levaquin] 750 mg PO QDAY #5 tablet 07/21/20 Unknown Rx HYDROcodone/APAP 5-325 [[place] 1 each PO Q6HR PRN #7 tablet 07/30/20 Unknown Rx 5/325] Ondansetron [Zofran ODT TAB] 8 mg PO Q8HR #20 tab.rapdis 07/30/20 Unknown Rx methocarbamoL [Methocarbamol] 500 mg PO BID PRN #10 tab 05/26/21 Unknown Rx Allergies Allergy/AdvReac Type Severity Reaction Status Date / Time egg Allergy Hives Verified 08/04/20 22:34 piperacillin [From Zosyn] Allergy Hives Verified 08/04/20 22:34 tazobactam [From Zosyn] Allergy Hives Verified 08/04/20 22:34 tramadol HCl [From Ultram] Allergy Hives Verified 08/04/20 22:34 vancomycin Allergy Hives Verified 08/04/20 22:34 NSAIDS (Non-Steroidal AdvReac Vomiting Verified 08/04/20 22:34 Anti-Inflamma ED Review of Systems ROS: Stated complaint: LUPUS FLARE UP /FEVER JOINT PAIN Other details as noted in HPI Comment: All other systems reviewed and negative ED Past Medical Hx - Past Medical History Hx Hypertension: Yes Hx CVA: No Hx Heart Attack/AMI: Yes (05/22, cardiac stent x1) Hx Congestive Heart Failure: No Hx Diabetes: Yes (type 2) Hx Deep Vein Thrombosis: No Hx Pulmonary Embolism: No Hx GERD: No Hx Liver Disease: No Hx Renal Disease: No Hx Sickle Cell Disease: No Hx Arthritis: No Hx Headaches / Migraines: No Hx Seizures: No Hx Kidney Stones: No 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 iron deficient anemia - Surgical History Hx Coronary Stent: Yes (x1) Hx Breast Surgery: Yes (breast reduction 05/2004) Additional Surgical History: Breast reduction bilateral,excisional surg. for abscess to breast groin and rectum - Social History Smoking Status: Never Smoker Substance Use Type: None - Medications Home Medications: Home Medications Medication Instructions Recorded Confirmed Last Taken Type Aspirin [Aspirin BABY CHEW TAB] 81 mg PO QDAY #30 tab.chew 06/12/17 09/11/19 10:00 Rx lisinopriL [Lisinopril] 20 mg PO DAILY 10/08/17 09/11/19 11/20/17 10:00 History Zolpidem (Nf) [Ambien] 10 mg PO QHS 11/26/17 09/11/19 Unknown History Detemir (Nf) [Levemir (Nf)] 60 units SUB-Q HS 11/27/17 09/11/19 1 Day Ago History ~09/10/19 Insulin Detemir [Levemir Flextouch] 40 unit SQ QHS #4 insuln.pen 04/05/19 09/11/19 1 Day Ago Rx ~09/10/19 Clopidogrel [Plavix] 75 mg PO QDAY #30 tablet 07/20/19 09/11/19 1 Day Ago Rx ~09/10/19 Hydroxychloroquine [Plaquenil] 200 mg PO QDAY #20 tablet 07/20/19 09/11/19 Unknown Rx Insulin Glargine [Lantus VIAL] 50 unit SUB-Q QHS #1 vial 10/06/19 Unknown Rx metroNIDAZOLE [Flagyl] 500 mg PO BID 7 Days #14 tab 02/20/20 Unknown Rx Nitrofurantoin [place]/M-Cryst 100 mg PO Q12HR 10 Days #20 capsule 04/01/20 Unk nown Rx [Macrobid CAP] Phenazopyridine [Pyridium] 100 mg PO TID #6 tab 04/01/20 Unknown Rx Prednisone [predniSONE 10 mg 10 mg PO .TAPER #1 tab.ds.pk 04/24/20 Unknown Rx (6-Day Pack, 21 Tabs)] cephALEXin [Keflex] 500 mg PO BID 3 Days #6 capsule 05/09/20 Unknown Rx metroNIDAZOLE [Flagyl] 500 mg PO BID 7 Days #14 tab 05/09/20 Unknown Rx Acetaminophen [Tylenol] 650 mg PO Q8HR PRN #20 capsule 05/16/20 Unknown Rx Menthol/Camphor [[place] 1 applicatio TP BID #18 oint...g. 05/16/20 Unknown Rx Ointment] Docusate Sodium [Colace] 100 mg PO BID PRN #20 capsule 05/20/20 Unknown Rx Ondansetron [Zofran Odt] 4 mg PO Q8HR PRN #20 tab.rapdis 05/20/20 Unknown Rx Polyethylene Glycol 3350 [Miralax] 17 gm PO DAILY PRN #7 dose 05/20/20 Unknown Rx Acetaminophen [Acetaminophen TAB] 1,000 mg PO Q6HR PRN #30 tablet 06/11/20 Unknown Rx Dicyclomine [Bentyl] 10 mg PO QID PRN #12 capsule 06/11/20 Unknown Rx Ondansetron [Zofran Odt] 4 mg PO Q8HR PRN #12 tab.rapdis 06/11/20 Unknown Rx Acetaminophen [Acetaminophen TAB] 1,000 mg PO Q6HR PRN #30 tablet 06/18/20 Unknown Rx Clindamycin [Clindamycin CAP] 300 mg PO Q8H 7 Days #21 cap 06/18/20 Unknown Rx Albuterol Mdi (or & Nicu Only) 2 puff IH QID PRN #8.5 gram 07/21/20 Unknown Rx [ProAir HFA Inhaler] levoFLOXacin [Levaquin] 750 mg PO QDAY #5 tablet 07/21/20 Unknown Rx HYDROcodone/APAP 5-325 [[place] 1 each PO Q6HR PRN #7 tablet 07/30/20 Unknown Rx 5/325] Ondansetron [Zofran ODT TAB] 8 mg PO Q8HR #20 tab.rapdis 07/30/20 Unknown Rx methocarbamoL [Methocarbamol] 500 mg PO BID PRN #10 tab 05/26/21 Unknown Rx ED Physical Exam - General Limitations: No Limitations General appearance: alert, in no apparent distress - Head Head exam: Present: atraumatic, normocephalic - Eye Eye exam: Present: normal appearance - ENT ENT exam: Present: mucous membranes moist - Extremities Exam Extremities exam: Present: other (mild ttp to diffuse joints, no edema, no erythema, no increased warmth, FROM, neurovascularly intact throughout ) - Neurological Exam Neurological exam: Present: alert, oriented X3 - Psychiatric Psychiatric exam: Present: normal affect, normal mood - Skin Skin exam: Present: warm, dry, intact ED Course Vital Signs 07/06/21 16:37 Temperature 98.5 F Pulse Rate 94 H Respiratory 20 Rate Blood Pressure 117/83 O2 Sat by Pulse 99 Oximetry ED Medical Decision Making - Medical Decision Making Patient is a 41-year-old female presents emergency room complaints of diffuse joint aches over the last couple days. She states that she ran out of her pain medication that she takes chronically at home. She states that she cannot get into her doctor until Tuesday07/10/2021. She reports that she has had a fever. She denies any diarrhea, cough, shortness of breath, pleuritic pain, swelling. pt has multiple medication allergies documented. vitals are normal. no fever, no tachycardia. on exam: mild ttp to diffuse joints, no edema, no erythema, no increased warmth, FROM, neurovascularly intact throughout. no signs of septic joint. pt given one dose of pain medication. advised pt we would not be able to refill her pain medication she would need to follow-up with her primary care doctor for refill. advised pt Follow-up with your primary care doctor. Follow- up with your cloud consultant. Return to emergency room for any new or worsening symptoms. Critical care attestation.: If time is entered above; I have spent that time in minutes in the direct care of this critically ill patient, excluding procedure time. ED Disposition Clinical Impression: History of lupus, Polyarthralgia Disposition: 01 HOME / SELF CARE / HOMELESS Is pt being admited?: No Does the pt Need Aspirin: No Condition: Stable Instructions: Joint Pain, [id number] Additional Instructions: Follow-up with your primary care doctor. Follow-up with your cloud consultant. Return to emergency room for any new or worsening symptoms. Referrals: your, primary care doctor [Other] - 3-5 Days your, cloud consultant [Other] - 3-5 Days Time of Disposition: 19:31 Print Language: [id number]
== END 2021-07-06 20:09 | disposition home or self-care (01) ==
LOC: ED 13:35
DX: M25.50 Pain in unspecified joint (principal); D68.62 Lupus anticoagulant syndrome; I10 Essential (primary) hypertension; E11.9 Type 2 diabetes mellitus without complications; F41.9 Anxiety disorder, unspecified; Z79.899 Other long term (current) drug therapy; Z98.890 Other specified postprocedural states; Z88.6 Allergy status to analgesic agent; Z88.1 Allergy status to other antibiotic agents; Z91.012 Allergy to eggs; Z91.09 Other allergy status, other than to drugs and biological substances
CPT/HCPCS: 99282

== ENCOUNTER 2021-07-28 19:45 | Emergency (ER) | payer MEDICARE ==
[2021-07-28 20:38] VITALS: BP 171/94
[2021-07-29] MEDS ORDERED: HYDROcodone/ACETAMINOPHEN 5-325 MG TAB PO ONE (01:05)
[2021-07-29] MEDS ORDERED: dexAMETHasone 20 MG/5 ML VIAL IM ONE (01:05)
[2021-07-29] MEDS ORDERED: ONDANSETRON 4 MG ODT TAB PO ONE (01:06)
[2021-07-29] MEDS ORDERED: MORPHINE 4 MG/1 ML INJ IM ONE (01:19)
--- NOTE | 2021-07-29 02:14 | Emergency Department Report ---
ED General Adult HPI - General Chief complaint: Pain General Stated complaint: LUPUS/ABD PAIN Time Seen by Provider: 07/29/21 01:07 Source: patient Mode of arrival: Ambulatory Limitations: No Limitations - History of Present Illness Initial comments: Patient 41-year-old -[place] female with a history of lupus arthralgia who presents for joint pain generalized all over. Patient states she is getting pain medicine prescription from her primary care doctor however she is out of medication. She cannot see her primary care doctor until Tuesday. Patient denies fevers or chills states 5/10 joint pain that is constant. There is no dizziness no lightheadedness no chest pain no shortness of breath. Patient is tolerating p.o. hydration at this time. Pain is exacerbated by activity and movement. Pain is relieved by nothing tried. Current regimen includes Plaquenil, Tylenol products, Tylenol 3. Severity scale (0 -10): 9 - Related Data Home Medications Medication Instructions Recorded Confirmed Last Taken lisinopriL [Lisinopril] 20 mg PO DAILY 10/08/17 09/11/19 11/20/17 10:00 Zolpidem (Nf) [Ambien] 10 mg PO QHS 11/26/17 09/11/19 Unknown Detemir (Nf) [Levemir (Nf)] 60 units SUB-Q HS 11/27/17 09/11/19 1 Day Ago ~09/10/19 Previous Rx's Medication Instructions Recorded Last Taken Type Aspirin [Aspirin BABY CHEW TAB] 81 mg PO QDAY #30 tab.chew 06/12/17 11/20/17 10:00 Rx Insulin Detemir [Levemir Flextouch] 40 unit SQ QHS #4 insuln.pen 04/05/19 1 Day Ago Rx ~09/10/19 Clopidogrel [Plavix] 75 mg PO QDAY #30 tablet 07/20/19 1 Day Ago Rx ~09/10/19 Hydroxychloroquine [Plaquenil] 200 mg PO QDAY #20 tablet 07/20/19 Unknown Rx Insulin Glargine [Lantus VIAL] 50 unit SUB-Q QHS #1 vial 10/06/19 Unknown Rx metroNIDAZOLE [Flagyl] 500 mg PO BID 7 Days #14 tab 02/20/20 Unknown Rx Nitrofurantoin Carter/M-Cryst 100 mg PO Q12HR 10 Days #20 capsule 04/01/20 Unknown Rx [Macrobid CAP] Phenazopyridine [Pyridium] 100 mg PO TID #6 tab 04/01/20 Unknown Rx Prednisone [predniSONE 10 mg 10 mg PO .TAPER #1 tab.ds.pk 04/24/20 Unknown Rx (6-Day Pack, 21 Tabs)] cephALEXin [Keflex] 500 mg PO BID 3 Days #6 capsule 05/09/20 Unknown Rx metroNIDAZOLE [Flagyl] 500 mg PO BID 7 Days #14 tab 05/09/20 Unknown Rx Acetaminophen [Tylenol] 650 mg PO Q8HR PRN #20 capsule 05/16/20 Unknown Rx Menthol/Camphor [[place] 1 applicatio TP BID #18 oint...g. 05/16/20 Unknown Rx Ointment] Docusate Sodium [Colace] 100 mg PO BID PRN #20 capsule 05/20/20 Unknown Rx Ondansetron [Zofran Odt] 4 mg PO Q8HR PRN #20 tab.rapdis 05/20/20 Unknown Rx Polyethylene Glycol 3350 [Miralax] 17 gm PO DAILY PRN #7 dose 05/20/20 Unknown Rx Acetaminophen [Acetaminophen TAB] 1,000 mg PO Q6HR PRN #30 tablet 06/11/20 Unknown Rx Dicyclomine [Bentyl] 10 mg PO QID PRN #12 capsule 06/11/20 Unknown Rx Ondansetron [Zofran Odt] 4 mg PO Q8HR PRN #12 tab.rapdis 06/11/20 Unknown Rx Acetaminophen [Acetaminophen TAB] 1,000 mg PO Q6HR PRN #30 tablet 06/18/20 Unknown Rx Clindamycin [Clindamycin CAP] 300 mg PO Q8H 7 Days #21 cap 06/18/20 Unknown Rx Albuterol Mdi (or & Nicu Only) 2 puff IH QID PRN #8.5 gram 07/21/20 Unknown Rx [ProAir HFA Inhaler] levoFLOXacin [Levaquin] 750 mg PO QDAY #5 tablet 07/21/20 Unknown Rx HYDROcodone/APAP 5-325 [[place] 1 each PO Q6HR PRN #7 tablet 07/30/20 Unknown Rx 5/325] Ondansetron [Zofran ODT TAB] 8 mg PO Q8HR #20 tab.rapdis 07/30/20 Unknown Rx methocarbamoL [Methocarbamol] 500 mg PO BID PRN #10 tab 05/26/21 Unknown Rx Acetaminophen/Codeine [Tylenol 1 tab PO Q8H PRN #9 tab 07/29/21 Unknown Rx /Codeine # 3 tab] Allergies Allergy/AdvReac Type Severity Reaction Status Date / Time egg Allergy Hives Verified 08/04/20 22:34 piperacillin [From Zosyn] Allergy Hives Verified 08/04/20 22:34 tazobactam [From Zosyn] Allergy Hives Verified 08/04/20 22:34 tramadol HCl [From Ultram] Allergy Hives Verified 08/04/20 22:34 vancomycin Allergy Hives Verified 08/04/20 22:34 NSAIDS (Non-Steroidal AdvReac Vomiting Verified 08/04/20 22:34 Anti-Inflamma ED Review of Systems ROS: Stated complaint: LUPUS/ABD PAIN Other details as noted in HPI Constitutional: denies: chills, fever Eyes: denies: eye pain, eye discharge, vision change ENT: denies: ear pain, throat pain Respiratory: denies: cough, shortness of breath, wheezing Cardiovascular: denies: chest pain, palpitations Endocrine: no symptoms reported Gastrointestinal: denies: abdominal pain, nausea, diarrhea Genitourinary: denies: urgency, dysuria, discharge Musculoskeletal: arthralgia, other (Generalized joint aches) Skin: denies: rash, lesions Neurological: denies: headache, weakness, paresthesias Psychiatric: denies: anxiety, depression Hematological/Lymphatic: denies: easy bleeding, easy bruising ED Past Medical Hx - Past Medical History Hx Hypertension: Yes Hx CVA: No Hx Heart Attack/AMI: Yes (05/22, cardiac stent x1) Hx Congestive Heart Failure: No Hx Diabetes: Yes (type 2) Hx Deep Vein Thrombosis: No Hx Pulmonary Embolism: No Hx GERD: No Hx Liver Disease: No Hx Renal Disease: No Hx Sickle Cell Disease: No Hx Arthritis: No Hx Headaches / Migraines: No Hx Seizures: No Hx Kidney Stones: No 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 iron deficient anemia - Surgical History Hx Coronary Stent: Yes (x1) Hx Breast Surgery: Yes (breast reduction 05/2004) Additional Surgical History: Breast reduction bilateral,excisional surg. for abscess to breast groin and rectum - Social History Smoking Status: Never Smoker Substance Use Type: None - Medications Home Medications: Home Medications Medication Instructions Recorded Confirmed Last Taken Type Aspirin [Aspirin BABY CHEW TAB] 81 mg PO QDAY #30 tab.chew 06/12/17 09/11/19 11/20/17 10:00 Rx lisinopriL [Lisinopril] 20 mg PO DAILY 10/08/17 09/11/19 11/20/17 10:00 History Zolpidem (Nf) [Ambien] 10 mg PO QHS 11/26/17 09/11/19 Unknown History Detemir (Nf) [Levemir (Nf)] 60 units SUB-Q HS 11/27/17 09/11/19 1 Day Ago History ~09/10/19 Insulin Detemir [Levemir Flextouch] 40 unit SQ QHS #4 insuln.pen 04/05/19 09/11/19 1 Day Ago Rx ~09/10/19 Clopidogrel [Plavix] 75 mg PO QDAY #30 tablet 07/20/19 09/11/19 1 Day Ago Rx ~09/10/19 Hydroxychloroquine [Plaquenil] 200 mg PO QDAY #20 tablet 07/20/19 09/11/19 Unknown Rx Insulin Glargine [Lantus VIAL] 50 unit SUB-Q QHS #1 vial 10/06/19 Unknown Rx metroNIDAZOLE [Flagyl] 500 mg PO BID 7 Days #14 tab 02/20/20 Unknown Rx Nitrofurantoin Carter/M-Cryst 100 mg PO Q12HR 10 Days #20 capsule 04/01/20 Unknown Rx [Macrobid CAP] Phenazopyridine [Pyridium] 100 mg PO TID #6 tab 04/01/20 Unknown Rx Prednisone [predniSONE 10 mg 10 mg PO .TAPER #1 tab.ds.pk 04/24/20 Unknown Rx (6-Day Pack, 21 Tabs)] cephALEXin [Keflex] 500 mg PO BID 3 Days #6 capsule 05/09/20 Unknown Rx metroNIDAZOLE [Flagyl] 500 mg PO BID 7 Days #14 tab 05/09/20 Unknown Rx Acetaminophen [Tylenol] 650 mg PO Q8HR PRN #20 capsule 05/16/20 Unknown Rx Menthol/Camphor [[place] 1 applicatio TP BID #18 oint...g. 05/16/20 Unknown Rx Ointment] Docusate Sodium [Colace] 100 mg PO BID PRN #20 capsule 05/20/20 Unknown Rx Ondansetron [Zofran Odt] 4 mg PO Q8HR PRN #20 tab.rapdis 05/20/20 Unknown Rx Polyethylene Glycol 3350 [Miralax] 17 gm PO DAILY PRN #7 dose 05/20/20 Unknown Rx Acetaminophen [Acetaminophen TAB] 1,000 mg PO Q6HR PRN #30 tablet 06/11/20 Unknown Rx Dicyclomine [Bentyl] 10 mg PO QID PRN #12 capsule 06/11/20 Unknown Rx Ondansetron [Zofran Odt] 4 mg PO Q8HR PRN #12 tab.rapdis 06/11/20 Unknown Rx Acetaminophen [Acetaminophen TAB] 1,000 mg PO Q6HR PRN #30 tablet 06/18/20 Unknown Rx Clindamycin [Clindamycin CAP] 300 mg PO Q8H 7 Days #21 cap 06/18/20 Unknown Rx Albuterol Mdi (or & Nicu Only) 2 puff IH QID PRN #8.5 gram 07/21/20 Unknown Rx [ProAir HFA Inhaler] levoFLOXacin [Levaquin] 750 mg PO QDAY #5 tablet 07/21/20 Unknown Rx HYDROcodone/APAP 5-325 [[place] 1 each PO Q6HR PRN #7 tablet 07/30/20 Unknown Rx 5/325] Ondansetron [Zofran ODT TAB] 8 mg PO Q8HR #20 tab.rapdis 07/30/20 Unknown Rx methocarbamoL [Methocarbamol] 500 mg PO BID PRN #10 tab 05/26/21 Unknown Rx Acetaminophen/Codeine [Tylenol 1 tab PO Q8H PRN #9 tab 07/29/21 Unknown Rx /Codeine # 3 tab] ED Physical Exam - General Limitations: No Limitations General appearance: alert, in no apparent distress - Head Head exam: Present: normocephalic, normal inspection - Eye Eye exam: Present: normal appearance, PERRL, EOMI Pupils: Present: normal accommodation - ENT ENT exam: Present: mucous membranes moist - Neck Neck exam: Present: normal inspection, full ROM. Absent: tenderness, lymphadenopathy - Respiratory Respiratory exam: Present: normal lung sounds bilaterally. Absent: respiratory distress, wheezes, stridor, chest wall tenderness - Cardiovascular Cardiovascular Exam: Present: regular rate, normal rhythm, normal heart sounds. Absent: systolic murmur, diastolic murmur, rubs, gallop - GI/Abdominal GI/Abdominal exam: Present: soft, normal bowel sounds. Absent: distended, tenderness - Rectal Rectal exam: Present: deferred - Extremities Exam Extremities exam: Present: normal inspection, full ROM, normal capillary refill. Absent: tenderness, pedal edema, joint swelling - Back Exam Back exam: Present: normal inspection, full ROM. Absent: CVA tenderness (R), CVA tenderness (L) - Neurological Exam Neurological exam: Present: alert, oriented X3, CN II-XII intact, normal gait, reflexes normal. Absent: motor sensory deficit - Expanded Neurological Exam Expanded Patient oriented to: Present: person, place, time Speech: Present: fluid speech Motor strength exam: RUE: 5, LUE: 5, RLE: 5, LLE: 5 Best Eye Response ([place]): (4) open spontaneously Best Motor Response ([place]): (6) obeys commands Best Verbal Response ([place]): (5) oriented [place] Total: 15 - Psychiatric Psychiatric exam: Present: normal affect, normal mood - Skin Skin exam: Present: warm, dry, intact, normal color. Absent: rash ED Course Vital Signs 07/28/21 20:08 Temperature 98.4 F Pulse Rate 77 Respiratory 18 Rate Blood Pressure 171/94 O2 Sat by Pulse 100 Oximetry ED Medical Decision Making - Medical Decision Making This is musculoskeletal pain pain is improved with medications given in ED. plan DC to home, patient will call primary MD in the morning for earlier appointment for medication refill. Patient verbalized agreement understanding with discharge plan. Patient will be DC'd home in stable condition at this time. Critical care attestation.: If time is entered above; I have spent that time in minutes in the direct care of this critically ill patient, excluding procedure time. ED Disposition Clinical Impression: Lupus arthritis Disposition: HOME / SELF CARE / HOMELESS Is pt being admited?: No Does the pt Need Aspirin: No Condition: Stable Instructions: Joint Pain, Musculoskeletal Pain Additional Instructions: Take all medications as prescribed, follow-up with your primary care doctor in the a.m. For medication refill. Return to emergency should symptoms worsen. Prescriptions: Acetaminophen/Codeine [Tylenol /Codeine # 3 tab] 1 tab PO Q8H PRN #9 tab PRN Reason: pain Referrals: GUS ODOM MD [Referring] - 24 Hours Forms: Work/School Release Form(ED) Time of Disposition: 02:18
== END 2021-07-29 02:30 | disposition left against medical advice (07) ==
LOC: ED 19:45
DX: Z88.6 Allergy status to analgesic agent (principal); Z91.018 Allergy to other foods; M19.90 Unspecified osteoarthritis, unspecified site; E11.9 Type 2 diabetes mellitus without complications
CPT/HCPCS: 96372; 99281; J1100; J2270; J3490; Q0162

== ENCOUNTER 2021-09-05 16:05 | Emergency (ER) | payer MEDICARE ==
[2021-09-05 18:15] VITALS: BP 129/84
[2021-09-05 21:20] LABS: Bilirubin,Urine NEG (Negative); Blood,Urine NEG (Negative); Color,Urine Yellow (Yellow); Mucus,Urine FEW /HPF; Protein,Urine <15 mg/dL mg/dL (Negative); RBC,Urine < 1.0 /HPF (0.0-6.0); Urobilinogen,Urine < 2.0 mg/dL (<2.0)
[2021-09-05 21:40] LABS: HCG Qualitative,Urine Negative (Negative)
--- NOTE | 2021-09-05 21:52 | Emergency Department Report ---
ED Female HPI - General Chief complaint: Urogenital-Female Stated complaint: VAGINAL DISCHARGE/ITCHING Source: patient Mode of arrival: Ambulatory Limitations: No Limitations - History of Present Illness Initial comments: Patient is a 41-year-old -[place] female with a history of hypertension, [id number] diabetes, SLE, hidradenitis suppurativa, coronary artery disease s/p PTCA stents, bipolar disorder, borderline personality disorder and paranoid schizophrenia who presents to the ED with complaint of acute onset persistent vaginal discharge with vaginal irritation and itching for the last 2 days after her menstrual cycle ended. Patient states that the vaginal discharge is white cottage cheese looking in appearance and irritation is worse with urin ation. Patient denies dizziness, syncope, chest pain, dysuria, urinary frequency and urgency, change in vision, fever and chills, vaginal bleeding or low back pain. MD Complaint: vaginal discharge, other (Vaginal irritation) -: Sudden, days(s) (2) Location: labia, other (Vaginal) Radiation: non-radiating Severity: severe Severity scale (0 -10): 7 Quality: sharp, burning, other (Itching) Consistency: constant Improves with: none Worsens with: urination Are you Now?: No Associated Symptoms: denies other symptoms, vaginal discharge, other (Vaginal irritation). denies: vaginal bleeding, abdominal pain, nausea/vomiting, fever/chills, dysuria, hematuria, rash, seizure, shortness of breath, syncope, weakness - Related Data Sexually active: Yes Home Medications Medication Instructions Recorded Confirmed Last Taken lisinopriL [Lisinopril] 20 mg PO DAILY 10/08/17 09/11/19 11/20/17 10:00 Zolpidem (Nf) [Ambien] 10 mg PO QHS 11/26/17 09/11/19 Unknown Detemir (Nf) [Levemir (Nf)] 60 units SUB-Q HS 11/27/17 09/11/19 1 Day Ago ~09/10/19 Previous Rx's Medication Instructions Recorded Last Taken Type Aspirin [Aspirin BABY CHEW TAB] 81 mg PO QDAY #30 tab.chew 06/12/17 11/20/17 10:00 Rx Insulin Detemir [Levemir Flextouch] 40 unit SQ QHS #4 insuln.pen 04/05/19 1 Day Ago Rx ~09/10/19 Clopidogrel [Plavix] 75 mg PO QDAY #30 tablet 07/20/19 1 Day Ago Rx ~09/10/19 Hydroxychloroquine [Plaquenil] 200 mg PO QDAY #20 tablet 07/20/19 Unknown Rx Insulin Glargine [Lantus VIAL] 50 unit SUB-Q QHS #1 vial 10/06/19 Unknown Rx metroNIDAZOLE [Flagyl] 500 mg PO BID 7 Days #14 tab 02/20/20 Unknown Rx Nitrofurantoin King/M-Cryst 100 mg PO Q12HR 10 Days #20 capsule 04/01/20 Unknown Rx [Macrobid CAP] Phenazopyridine [Pyridium] 100 mg PO TID #6 tab 04/01/20 Unknown Rx Prednisone [predniSONE 10 mg 10 mg PO .TAPER #1 tab.ds.pk 04/24/20 Unknown Rx (6-Day Pack, 21 Tabs)] cephALEXin [Keflex] 500 mg PO BID 3 Days #6 capsule 05/09/20 Unknown Rx metroNIDAZOLE [Flagyl] 500 mg PO BID 7 Days #14 tab 05/09/20 Unknown Rx Acetaminophen [Tylenol] 650 mg PO Q8HR PRN #20 capsule 05/16/20 Unknown Rx Menthol/Camphor [[place] 1 applicatio TP BID #18 oint...g. 05/16/20 Unknown Rx Ointment] Docusate Sodium [Colace] 100 mg PO BID PRN #20 capsule 05/20/20 Unknown Rx Ondansetron [Zofran Odt] 4 mg PO Q8HR PRN #20 tab.rapdis 05/20/20 Unknown Rx Polyethylene Glycol 3350 [Miralax] 17 gm PO DAILY PRN #7 dose 05/20/20 Unknown Rx Acetaminophen [Acetaminophen TAB] 1,000 mg PO Q6HR PRN #30 tablet 06/11/20 Unknown Rx Dicyclomine [Bentyl] 10 mg PO QID PRN #12 capsule 06/11/20 Unknown Rx Ondansetron [Zofran Odt] 4 mg PO Q8HR PRN #12 tab.rapdis 06/11/20 Unknown Rx Acetaminophen [Acetaminophen TAB] 1,000 mg PO Q6HR PRN #30 tablet 06/18/20 Unknown Rx Clindamycin [Clindamycin CAP] 300 mg PO Q8H 7 Days #21 cap 06/18/20 Unknown Rx Albuterol Mdi (or & Nicu Only) 2 puff IH QID PRN #8.5 gram 07/21/20 Unknown Rx [ProAir HFA Inhaler] levoFLOXacin [Levaquin] 750 mg PO QDAY #5 tablet 07/21/20 Unknown Rx HYDROcodone/APAP 5-325 [[place] 1 each PO Q6HR PRN #7 tablet 07/30/20 Unknown Rx 5/325] Ondansetron [Zofran ODT TAB] 8 mg PO Q8HR #20 tab.rapdis 07/30/20 Unknown Rx methocarbamoL [Methocarbamol] 500 mg PO BID PRN #10 tab 05/26/21 Unknown Rx Acetaminophen/Codeine [Tylenol 1 tab PO Q8H PRN #9 tab 07/29/21 Unknown Rx /Codeine # 3 tab] Fluconazole [Diflucan TAB] 200 mg PO QDAY #2 tablet 09/05/21 Unknown Rx Allergies Allergy/AdvReac Type Severity Reaction Status Date / Time egg Allergy Hives Verified 08/04/20 22:34 piperacillin [From Zosyn] Allergy Hives Verified 08/04/20 22:34 tazobactam [From Zosyn] Allergy Hives Verified 08/04/20 22:34 tramadol HCl [From Ultram] Allergy Hives Verified 08/04/20 22:34 vancomycin Allergy Hives Verified 08/04/20 22:34 NSAIDS (Non-Steroidal AdvReac Vomiting Verified 08/04/20 22:34 Anti-Inflamma ED Review of Systems ROS: Stated complaint: VAGINAL DISCHARGE/ITCHING Other details as noted in HPI Constitutional: denies: chills, fever Eyes: denies: eye pain, eye discharge, vision change ENT: denies: ear pain, throat pain Respiratory: denies: cough, shortness of breath, wheezing Cardiovascular: denies: chest pain, palpitations Endocrine: no symptoms reported Gastrointestinal: denies: abdominal pain, nausea, diarrhea Genitourinary: discharge, other (Vaginal irritation and itching). denies: urgency, dysuria, frequency, hematuria, abnormal menses Musculoskeletal: denies: back pain, joint swelling, arthralgia Skin: denies: rash, lesions Neurological: denies: headache, weakness, paresthesias Psychiatric: denies: anxiety, depression Hematological/Lymphatic: denies: easy bleeding, easy bruising ED Past Medical Hx - Past Medical History Previous Medical History?: Yes Hx Hypertension: Yes Hx CVA: No Hx Heart Attack/AMI: Yes (05/22, cardiac stent x1) Hx Congestive Heart Failure: No Hx Diabetes: Yes (type 2) Hx Deep Vein Thrombosis: No Hx Pulmonary Embolism: No Hx GERD: No Hx Liver Disease: No Hx Renal Disease: No Hx Sickle Cell Disease: No Hx Arthritis: No Hx Headaches / Migraines: No Hx Seizures: No Hx Kidney Stones: No 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 iron deficient anemia - Surgical History Past Surgical History?: Yes Hx Coronary Stent: Yes (x1) Hx Breast Surgery: Yes (breast reduction 05/2004) Additional Surgical History: Breast reduction bilateral,excisional surg. for abscess to breast groin and rectum - Social History Smoking Status: Never Smoker Substance Use Type: None - Medications Home Medications: Home Medications Medication Instructions Recorded Confirmed Last Taken Type Aspirin [Aspirin BABY CHEW TAB] 81 mg PO QDAY #30 tab.chew 06/12/17 09/11/19 11/20/17 10:00 Rx lisinopriL [Lisinopril] 20 mg PO DAILY 10/08/17 09/11/19 11/20/17 10:00 History Zolpidem (Nf) [Ambien] 10 mg PO QHS 11/26/17 09/11/19 Unknown History Detemir (Nf) [Levemir (Nf)] 60 units SUB-Q HS 11/27/17 09/11/19 1 Day Ago History ~09/10/19 Insulin Detemir [Levemir Flextouch] 40 unit SQ QHS #4 insuln.pen 04/05/19 09/11/19 1 Day Ago Rx ~09/10/19 Clopidogrel [Plavix] 75 mg PO QDAY #30 tablet 07/20/19 09/11/19 1 Day Ago Rx ~09/10/19 Hydroxychloroquine [Plaquenil] 200 mg PO QDAY #20 tablet 07/20/19 09/11/19 Unknown Rx Insulin Glargine [Lantus VIAL] 50 unit SUB-Q QHS #1 vial 10/06/19 Unknown Rx metroNIDAZOLE [Flagyl] 500 mg PO BID 7 Days #14 tab 02/20/20 Unknown Rx Nitrofurantoin [place]/M-[place]ryst 100 mg PO Q12HR 10 Days #20 capsule 04/01/20 Unknown Rx [Macrobid CAP] Phenazopyridine [Pyridium] 100 mg PO TID #6 tab 04/01/20 Unknown Rx Prednisone [predniSONE 10 mg 10 mg PO .TAPER #1 tab.ds.pk 04/24/20 Unknown Rx (6-Day Pack, 21 Tabs)] cephALEXin [Keflex] 500 mg PO BID 3 Days #6 capsule 05/09/20 Unknown Rx metroNIDAZOLE [Flagyl] 500 mg PO BID 7 Days #14 tab 05/09/20 Unknown Rx Acetaminophen [Tylenol] 650 mg PO Q8HR PRN #20 capsule 05/16/20 Unknown Rx Menthol/Camphor [[place] 1 applicatio TP BID #18 oint...g. 05/16/20 Unknown Rx Ointment] Docusate Sodium [Colace] 100 mg PO BID PRN #20 capsule 05/20/20 Unknown Rx Ondansetron [Zofran Odt] 4 mg PO Q8HR PRN #20 tab.rapdis 05/20/20 Unknown Rx Polyethylene Glycol 3350 [Miralax] 17 gm PO DAILY PRN #7 dose 05/20/20 Unknown Rx Acetaminophen [Acetaminophen TAB] 1,000 mg PO Q6HR PRN #30 tablet 06/11/20 Unknown Rx Dicyclomine [Bentyl] 10 mg PO QID PRN #12 capsule 06/11/20 Unknown Rx Ondansetron [Zofran Odt] 4 mg PO Q8HR PRN #12 tab.rapdis 06/11/20 Unknown Rx Acetaminophen [Acetaminophen TAB] 1,000 mg PO Q6HR PRN #30 tablet 06/18/20 Unknown Rx Clindamycin [Clindamycin CAP] 300 mg PO Q8H 7 Days #21 cap 06/18/20 Unknown Rx Albuterol Mdi (or & Nicu Only) 2 puff IH QID PRN #8.5 gram 07/21/20 Unknown Rx [ProAir HFA Inhaler] levoFLOXacin [Levaquin] 750 mg PO QDAY #5 tablet 07/21/20 Unknown Rx HYDROcodone/APAP 5-325 [[place] 1 each PO Q6HR PRN #7 tablet 07/30/20 Unknown Rx 5/325] Ondansetron [Zofran ODT TAB] 8 mg PO Q8HR #20 tab.rapdis 07/30/20 Unknown Rx methocarbamoL [Methocarbamol] 500 mg PO BID PRN #10 tab 05/26/21 Unknown Rx Acetaminophen/Codeine [Tylenol 1 tab PO Q8H PRN #9 tab 07/29/21 Unknown Rx /Codeine # 3 tab] Fluconazole [Diflucan TAB] 200 mg PO QDAY #2 tablet 09/05/21 Unknown Rx ED Physical Exam - General Limitations: No Limitations General appearance: alert, in no apparent distress - Head Head exam: Present: atraumatic, normocephalic, normal inspection - Eye Eye exam: Present: normal appearance, PERRL, EOMI Pupils: Present: normal accommodation - ENT ENT exam: Present: normal exam, normal orophraynx, mucous membranes moist, TM's normal bilaterally, normal external ear exam - Neck Neck exam: Present: normal inspection, full ROM. Absent: tenderness - Respiratory Respiratory exam: Present: normal lung sounds bilaterally. Absent: respiratory distress, wheezes, rales, rhonchi, chest wall tenderness, accessory muscle use, decreased breath sounds, prolonged expiratory - Cardiovascular Cardiovascular Exam: Present: regular rate, normal rhythm, normal heart sounds. Absent: systolic murmur, diastolic murmur, rubs, gallop - GI/Abdominal GI/Abdominal exam: Present: soft, normal bowel sounds. Absent: tenderness, guarding, rebound, hyperactive bowel sounds, hypoactive bowel sounds, organomegaly, bruit - Bi-manual exam: Present: other (Pelvic exam deferred, patient preferred self swab) - Extremities Exam Extremities exam: Present: normal inspection, full ROM, normal capillary refill - Back Exam Back exam: Present: normal inspection, full ROM. Absent: tenderness, CVA tenderness (R), CVA tenderness (L), muscle spasm, paraspinal tenderness, vertebral tenderness - Neurological Exam Neurological exam: Present: alert, oriented X3, CN II-XII intact, normal gait, reflexes normal - Psychiatric Psychiatric exam: Present: normal affect, normal mood - Skin Skin exam: Present: warm, dry, intact, normal color. Absent: rash ED Course Vital Signs 09/05/21 18:08 Temperature 98.8 F Pulse Rate 82 Respiratory 22 Rate Blood Pressure 129/84 [Right] O2 Sat by Pulse 99 Oximetry ED Medical Decision Making - Medical Decision Making This is a 41-year-old -[place] female with a history of hypertension, [id number] diabetes, SLE, hidradenitis suppurativa, coronary artery disease s/p PTCA stents, bipolar disorder, borderline personality disorder and paranoid schizophrenia who presents to the ED with complaint of acute onset persistent vaginal discharge with vaginal irritation and itching for the last 2 days after her menstrual cycle ended. Patient states that the vaginal discharge is white cottage cheese looking in appearance and irritation is worse with urination. In the ED, patient is alert and oriented x3 and is not in any distress. Urinalysis test is unremarkable. Wet prep test was positive for budding yeast. Patient symptoms are likely due to candidal vaginal yeast infection. Patient will discharge home on medications and advised to follow-up with her primary care physician in 7 to 10 days for reevaluation or return to the ED immediately if symptoms get worse. - Differential Diagnosis Winnie vaginitis; bacterial vaginosis; STD; trichomonas; UTI; Critical care attestation.: If time is entered above; I have spent that time in minutes in the direct care of this critically ill patient, excluding procedure time. ED Disposition Clinical Impression: Winnie vaginitis, Vaginal irritation, Vaginal discharge Disposition: 01 HOME / SELF CARE / HOMELESS Is pt being admited?: No Does the pt Need Aspirin: No Condition: Stable Instructions: Vaginitis, [id number], Vaginal Yeast Infection, Adult Additional Instructions: Take medication with food, drink plenty of fluids, no alcohol consumption advised when taking this medication. Follow-up with your primary care physician in 7 to 10 days for reevaluation, return to the ED immediately if symptoms get worse. Prescriptions: Fluconazole [Diflucan TAB] 200 mg PO QDAY #2 tablet Referrals: [facility] [Provider Group] - 7-10 days Time of Disposition: 21:53 Print Language: YI
[2021-09-05] MEDS ORDERED: FLUCONAZOLE 200 MG TAB PO ONE (21:54)
[2021-09-05] MEDS ORDERED: dexAMETHasone 20 MG/5 ML VIAL IM ONE (22:33)
== END 2021-09-05 22:48 | disposition home or self-care (01) ==
LOC: ED 16:05
DX: B37.3 Candidiasis of vulva and vagina (principal); N89.8 Other specified noninflammatory disorders of vagina; I10 Essential (primary) hypertension; I21.9 Acute myocardial infarction, unspecified; E11.9 Type 2 diabetes mellitus without complications; F31.9 Bipolar disorder, unspecified; Z88.6 Allergy status to analgesic agent; Z88.1 Allergy status to other antibiotic agents; Z91.012 Allergy to eggs; Z91.09 Other allergy status, other than to drugs and biological substances; Z79.899 Other long term (current) drug therapy
CPT/HCPCS: 81001; 81025; 87210; 96372; 99283; J1100

== ENCOUNTER 2021-09-18 17:09 | Emergency (ER) | payer MEDICARE ==
[2021-09-19 01:40] LABS: Bilirubin,Urine NEG (Negative); Blood,Urine NEG (Negative); Color,Urine Yellow (Yellow); Protein,Urine <15 mg/dL mg/dL (Negative); Urobilinogen,Urine < 2.0 mg/dL (<2.0)
[2021-09-19 01:41] LABS: Mucus,Urine FEW /HPF; WBC,Urine < 1.0 /HPF (0.0-6.0)
[2021-09-19 01:49] LABS: RBC,Urine < 1.0 /HPF (0.0-6.0)
[2021-09-19 11:52] VITALS: BP 126/70
[2021-09-19] MEDS ORDERED: SODIUM CHLORIDE 0.9% 1000 ML 1,000 ML IV ONE (12:02)
[2021-09-19] MEDS ORDERED: ONDANSETRON 4 MG/2 ML INJ IV ONE (12:02)
--- NOTE | 2021-09-19 12:21 | Emergency Department Report ---
ED Abdominal Pain HPI - General Chief Complaint: Abdominal Pain Stated Complaint: ABD PAIN/VOMITING Source: patient Mode of arrival: Ambulatory Limitations: No Limitations - History of Present Illness Initial Comments: 41-year-old female visited ED complaining of abdominal pain. She has a history of hypertension, non-insulin diabetes, lupus, coronary artery disease,s/p PTCA stents, bipolar personality disorder, and paranoid schizophrenia. She has multiple visit for abdominal pain. She states that she has an appointment with GI on Tuesday, September. She states that she has been treated for GERD in the past. She states that she has been very nauseous which is causing her to be unable to eat. She denies any chest pain or shortness of breath at present time. She states that she took some Zofran at home which has not really helped. Patient denies any homicidal or suicidal ideation. Patient is alert and oriented x3. No acute distress noted. No ill appearance noted MD Complaint: abdominal pain Onset/Timin -: week(s) Severity scale (0 -10): 6 - Related Data Home Medications Medication Instructions Recorded Confirmed Last Taken lisinopriL [Lisinopril] 20 mg PO DAILY 10/08/17 09/11/19 11/20/17 10:00 Zolpidem (Nf) [Ambien] 10 mg PO QHS 11/26/17 09/11/19 Unknown Detemir (Nf) [Levemir (Nf)] 60 units SUB-Q HS 11/27/17 09/11/19 1 Day Ago ~09/10/19 Previous Rx's Medication Instructions Recorded Last Taken Type Aspirin [Aspirin BABY CHEW TAB] 81 mg PO QDAY #30 tab.chew 06/12/17 11/20/17 10:00 Rx Insulin Detemir [Levemir Flextouch] 40 unit SQ QHS #4 insuln.pen 04/05/19 1 Day Ago Rx ~09/10/19 Clopidogrel [Plavix] 75 mg PO QDAY #30 tablet 07/20/19 1 Day Ago Rx ~09/10/19 Hydroxychloroquine [Plaquenil] 200 mg PO QDAY #20 tablet 07/20/19 Unknown Rx Insulin Glargine [Lantus VIAL] 50 unit SUB-Q QHS #1 vial 10/06/19 Unknown Rx metroNIDAZOLE [Flagyl] 500 mg PO BID 7 Days #14 tab 02/20/20 Unknown Rx Nitrofurantoin [place]/M-Cryst 100 mg PO Q12HR 10 Days #20 capsule 04/01/20 Unknown Rx [Macrobid CAP] Phenazopyridine [Pyridium] 100 mg PO TID #6 tab 04/01/20 Unknown Rx Prednisone [predniSONE 10 mg 10 mg PO .TAPER #1 tab.ds.pk 04/24/20 Unknown Rx (6-Day Pack, 21 Tabs)] cephALEXin [Keflex] 500 mg PO BID 3 Days #6 capsule 05/09/20 Unknown Rx metroNIDAZOLE [Flagyl] 500 mg PO BID 7 Days #14 tab 05/09/20 Unknown Rx Acetaminophen [Tylenol] 650 mg PO Q8HR PRN #20 capsule 05/16/20 Unknown Rx Menthol/Camphor [[place] M[place]ammon 1 applicatio TP BID #18 oint...g. 05/16/20 Unknown Rx Ointment] Docusate Sodium [Colace] 100 mg PO BID PRN #20 capsule 05/20/20 Unknown Rx Ondansetron [Zofran Odt] 4 mg PO Q8HR PRN #20 tab.rapdis 05/20/20 Unknown Rx Polyethylene Glycol 3350 [Miralax] 17 gm PO DAILY PRN #7 dose 05/20/20 Unknown Rx Acetaminophen [Acetaminophen TAB] 1,000 mg PO Q6HR PRN #30 tablet 06/11/20 Unknown Rx Dicyclomine [Bentyl] 10 mg PO QID PRN #12 capsule 06/11/20 Unknown Rx Ondansetron [Zofran Odt] 4 mg PO Q8HR PRN #12 tab.rapdis 06/11/20 Unknown Rx Acetaminophen [Acetaminophen TAB] 1,000 mg PO Q6HR PRN #30 tablet 06/18/20 Unknown Rx Clindamycin [Clindamycin CAP] 300 mg PO Q8H 7 Days #21 cap 06/18/20 Unknown Rx Albuterol Mdi (or & Nicu Only) 2 puff IH QID PRN #8.5 gram 07/21/20 Unknown Rx [ProAir HFA Inhaler] levoFLOXacin [Levaquin] 750 mg PO QDAY #5 tablet 07/21/20 Unknown Rx HYDROcodone/APAP 5-325 [[place] 1 each PO Q6HR PRN #7 tablet 07/30/20 Unknown Rx 5/325] Ondansetron [Zofran ODT TAB] 8 mg PO Q8HR #20 tab.rapdis 07/30/20 Unknown Rx methocarbamoL [Methocarbamol] 500 mg PO BID PRN #10 tab 05/26/21 Unknown Rx Acetaminophen/Codeine [Tylenol 1 tab PO Q8H PRN #9 tab 07/29/21 Unknown Rx /Codeine # 3 tab] Fluconazole [Diflucan TAB] 200 mg PO QDAY #2 tablet 09/05/21 Unknown Rx Acetaminophen/Codeine [Tylenol 1 tab PO Q6H PRN 3 Days #12 tab 09/19/21 Unknown Rx /Codeine # 3 tab] Promethazine [Phenergan] 25 mg PO Q6HR PRN 15 Days #30 tab 09/19/21 Unknown Rx Allergies Allergy/AdvReac Type Severity Reaction Status Date / Time egg Allergy Hives Verified 08/04/20 22:34 piperacillin [From Zosyn] Allergy Hives Verified 08/04/20 22:34 tazobactam [From Zosyn] Allergy Hives Verified 08/04/20 22:34 tramadol HCl [From Ultram] Allergy Hives Verified 08/04/20 22:34 vancomycin Allergy Hives Verified 08/04/20 22:34 NSAIDS (Non-Steroidal AdvReac Vomiting Verified 08/04/20 22:34 Anti-Inflamma ED Review of Systems ROS: Stated complaint: ABD PAIN/VOMITING Other details as noted in HPI Constitutional: denies: chills, fever Eyes: denies: eye pain, eye discharge, vision change ENT: denies: ear pain, throat pain Respiratory: denies: cough, shortness of breath, wheezing Cardiovascular: denies: chest pain, palpitations Endocrine: no symptoms reported Gastrointestinal: denies: abdominal pain, nausea, diarrhea Genitourinary: denies: urgency, dysuria, discharge Musculoskeletal: denies: back pain, joint swelling, arthralgia Skin: denies: rash, lesions Neurological: denies: headache, weakness, paresthesias Psychiatric: denies: anxiety, depression Hematological/Lymphatic: denies: easy bleeding, easy bruising ED Past Medical Hx - Past Medical History Hx Hypertension: Yes Hx CVA: No Hx Heart Attack/AMI: Yes (05/22, cardiac stent x1) Hx Congestive Heart Failure: No Hx Diabetes: Yes (type 2) Hx Deep Vein Thrombosis: No Hx Pulmonary Embolism: No Hx GERD: No Hx Liver Disease: No Hx Renal Disease: No Hx Sickle Cell Disease: No Hx Arthritis: No Hx Headaches / Migraines: No Hx Seizures: No Hx Kidney Stones: No 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 iron deficient anemia - Surgical History Hx Coronary Stent: Yes (x1) Hx Breast Surgery: Yes (breast reduction 05/2004) Additional Surgical History: Breast reduction bilateral,excisional surg. for abscess to breast groin and rectum - Social History Smoking Status: Unknown if ever smoked - Medications Home Medications: Home Medications Medication Instructions Recorded Confirmed Last Taken Type Aspirin [Aspirin BABY CHEW TAB] 81 mg PO QDAY #30 tab.chew 06/12/17 09/11/19 11/20/17 10:00 Rx lisinopriL [Lisinopril] 20 mg PO DAILY 10/08/17 09/11/19 11/20/17 10:00 History Zolpidem (Nf) [Ambien] 10 mg PO QHS 11/26/17 09/11/19 Unknown History Detemir (Nf) [Levemir (Nf)] 60 units SUB-Q HS 11/27/17 09/11/19 1 Day Ago History ~09/10/19 Insulin Detemir [Levemir Flextouch] 40 unit SQ QHS #4 insuln.pen 04/05/19 09/11/19 1 Day Ago Rx ~09/10/19 Clopidogrel [Plavix] 75 mg PO QDAY #30 tablet 07/20/19 09/11/19 1 Day Ago Rx ~09/10/19 Hydroxychloroquine [Plaquenil] 200 mg PO QDAY #20 tablet 07/20/19 09/11/19 Unknown Rx Insulin Glargine [Lantus VIAL] 50 unit SUB-Q QHS #1 vial 10/06/19 Unknown Rx metroNIDAZOLE [Flagyl] 500 mg PO BID 7 Days #14 tab 02/20/20 Unknown Rx Nitrofurantoin [place]/M-Cryst 100 mg PO Q12HR 10 Days #20 capsule 04/01/20 Unknown Rx [Macrobid CAP] Phenazopyridine [Pyridium] 100 mg PO TID #6 tab 04/01/20 Unknown Rx Prednisone [predniSONE 10 mg 10 mg PO .TAPER #1 tab.ds.pk 04/24/20 Unknown Rx (6-Day Pack, 21 Tabs)] cephALEXin [Keflex] 500 mg PO BID 3 Days #6 capsule 05/09/20 Unknown Rx metroNIDAZOLE [Flagyl] 500 mg PO BID 7 Days #14 tab 05/09/20 Unknown Rx Acetaminophen [Tylenol] 650 mg PO Q8HR PRN #20 capsule 05/16/20 Unknown Rx Menthol/Camphor [[place] M[place]am[place] 1 applicatio TP BID #18 oint...g. 05/16/20 Unknown Rx Ointment] Docusate Sodium [Colace] 100 mg PO BID PRN #20 capsule 05/20/20 Unknown Rx Ondansetron [Zofran Odt] 4 mg PO Q8HR PRN #20 tab.rapdis 05/20/20 Unknown Rx Polyethylene Glycol 3350 [Miralax] 17 gm PO DAILY PRN #7 dose 05/20/20 Unknown Rx Acetaminophen [Acetaminophen TAB] 1,000 mg PO Q6HR PRN #30 tablet 06/11/20 Unknown Rx Dicyclomine [Bentyl] 10 mg PO QID PRN #12 capsule 06/11/20 Unknown Rx Ondansetron [Zofran Odt] 4 mg PO Q8HR PRN #12 tab.rapdis 06/11/20 Unknown Rx Acetaminophen [Acetaminophen TAB] 1,000 mg PO Q6HR PRN #30 tablet 06/18/20 Unknown Rx Clindamycin [Clindamycin CAP] 300 mg PO Q8H 7 Days #21 cap 06/18/20 Unknown Rx Albuterol Mdi (or & Nicu Only) 2 puff IH QID PRN #8.5 gram 07/21/20 Unknown Rx [ProAir HFA Inhaler] levoFLOXacin [Levaquin] 750 mg PO QDAY #5 tablet 07/21/20 Unknown Rx HYDROcodone/APAP 5-325 [[place] 1 each PO Q6HR PRN #7 tablet 07/30/20 Unknown Rx 5/325] Ondansetron [Zofran ODT TAB] 8 mg PO Q8HR #20 tab.rapdis 07/30/20 Unknown Rx methocarbamoL [Methocarbamol] 500 mg PO BID PRN #10 tab 05/26/21 Unknown Rx Acetaminophen/Codeine [Tylenol 1 tab PO Q8H PRN #9 tab 07/29/21 Unknown Rx /Codeine # 3 tab] Fluconazole [Diflucan TAB] 200 mg PO QDAY #2 tablet 09/05/21 Unknown Rx Acetaminophen/Codeine [Tylenol 1 tab PO Q6H PRN 3 Days #12 tab 09/19/21 Unknown Rx /Codeine # 3 tab] Promethazine [Phenergan] 25 mg PO Q6HR PRN 15 Days #30 tab 09/19/21 Unknown Rx ED Physical Exam - General Limitations: No Limitations ED Course Vital Signs 09/18/21 09/19/21 17:16 11:51 Temperature 98.8 F 98.3 F Pulse Rate 75 60 Respiratory 18 15 Rate Blood Pressure 118/64 Blood Pressure 126/70 [Right] O2 Sat by Pulse 99 Oximetry ED Medical Decision Making - Lab Data Result diagrams: 09/19/21 14:20 09/19/21 12:40 - Medical Decision Making 41-year-old female visited ED complaining of abdominal pain. She has a history of hypertension, non-insulin diabetes, lupus, coronary artery disease,s/p PTCA stents, bipolar personality disorder, and paranoid schizophrenia. She has multiple visit for abdominal pain. She states that she has an appointment with GI on Tuesday, September. She states that she has been treated for GERD in the past. She states that she has been very nauseous which is causing her to be unable to eat. She denies any chest pain or shortness of breath at present time. She states that she took some Zofran at home which has not really helped. Patient denies any homicidal or suicidal ideation. Patient is alert and oriented x3. No acute distress noted. No ill appearance noted. Physical examination is unremarkable. Patient became agitated during ED stay was given morphine 4 mg, Benadryl 25 mg IV. Patient was given Zofran 4 mg IV for for nausea. Patient given Percocet 10 mg po as she state help with her anxiety . Patient has been in the ED for 22 hours length of stay. Rechecked the patient is resting quietly quietly and comfortable and feeling better. I discussed the results of diagnostic study, my clinical impression and the plan for further treatment with the patient. Patient agrees with plan and discharge at this present time. All question addressed. I have given the patient instruction regarding a diagnosis ,expectation ,follow- up and return precaution. I explained to the patient that emergent condition may arise and to return to the ED for new worsen and any new persisting condition. I have explained the importance of following up with the primary care physician or referral physician listed below has instructed. The patient verbalized understanding of discharge instruction. Critical care attestation.: If time is entered above; I have spent that time in minutes in the direct care of this critically ill patient, excluding procedure time. ED Disposition Clinical Impression: Anxiety, Nauseous Abdominal pain Qualifiers: Abdominal location: generalized Qualified Code(s): R10.84 - Generalized abdominal pain Disposition: HOME / SELF CARE / HOMELESS Is pt being admited?: No Does the pt Need Aspirin: No Condition: Stable Instructions: Abdominal Pain (ED), Abdominal Pain, Adult, [id number], Nausea and Vomiting, Adult, [id number], Managing Anxiety, Adult Additional Instructions: Up appointment with GI this week Return to ED for any worsening symptom Prescriptions: Promethazine [Phenergan] 25 mg PO Q6HR PRN 15 Days #30 tab PRN Reason: Nausea Acetaminophen/Codeine [Tylenol /Codeine # 3 tab] 1 tab PO Q6H PRN 3 Days #12 tab PRN Reason: Pain, Mild (1-3) Referrals: GUILLERMO ANTHONY MD [Primary Care Provider] - 3-5 Days [facility] [Provider Group] - 3-5 Days [facility] [Outside] - 3-5 Days Forms: Work/School Release Form(ED) Time of Disposition: 16:10
[2021-09-19] MEDS ORDERED: MORPHINE 4 MG/1 ML INJ IV ONE (13:12)
[2021-09-19] MEDS ORDERED: diphenhydrAMINE 50 MG/ML VIAL IV ONE (13:14)
[2021-09-19 13:47] LABS: Alanine Aminotransferase 15 units/L (7-56); Albumin 3.8 g/dL (3.9-5); Blood Urea Nitrogen 8 mg/dL (7-17); Calcium 8.7 mg/dL (8.4-10.2); Hemolysis Index 116
[2021-09-19 13:48] LABS: BUN/Creatinine Ratio 13
[2021-09-19 15:04] LABS: Hematocrit 37.2 % (30.3-42.9); Hemoglobin 12.4 gm/dl (10.1-14.3); Mean Corpuscular HGB Conc 33 % (30-34); Mean Corpuscular Volume 82 fl (79-97); Platelet Count 211 K/mm3 (140-440); Red Blood Count 4.53 M/mm3 (3.65-5.03); Red Cell Distribution Width 16.6 % (13.2-15.2)
[2021-09-19 15:17] LABS: INR 0.89 (0.87-1.13)
[2021-09-19] MEDS ORDERED: oxyCODONE /ACETAMINOPHEN 5-325MG TAB PO ONE (16:01)
== END 2021-09-19 17:00 | disposition home or self-care (01) ==
LOC: ED 17:09
DX: R10.9 Unspecified abdominal pain (principal); R11.0 Nausea; F41.9 Anxiety disorder, unspecified; E11.9 Type 2 diabetes mellitus without complications; I10 Essential (primary) hypertension; I21.9 Acute myocardial infarction, unspecified; F31.9 Bipolar disorder, unspecified; Z98.890 Other specified postprocedural states; Z79.899 Other long term (current) drug therapy; Z88.6 Allergy status to analgesic agent; Z88.1 Allergy status to other antibiotic agents; Z91.012 Allergy to eggs; Z91.09 Other allergy status, other than to drugs and biological substances
CPT/HCPCS: 36415; 80053; 81001; 83690; 85027; 85610; 96361; 96374; 96375; 99283; J1200; J2270; J2405; J7030

== ENCOUNTER 2021-09-25 20:46 | Emergency (ER) | payer MEDICARE ==
[2021-09-25 21:50] LABS: Bilirubin,Urine NEG (Negative); Blood,Urine SM (Negative); Color,Urine Yellow (Yellow); Protein,Urine <15 mg/dL mg/dL (Negative); Urobilinogen,Urine < 2.0 mg/dL (<2.0)
[2021-09-25 21:53] LABS: Mucus,Urine FEW /HPF
[2021-09-25 21:54] LABS: HCG Qualitative,Urine Negative (Negative)
[2021-09-25 23:25] LABS: Basophils % (Auto) 0.6 % (0.0-1.8); Eosinophils # (Auto) 0.1 K/mm3 (0.0-0.4); Eosinophils % (Auto) 1.4 % (0.0-4.3); Hematocrit 35.2 % (30.3-42.9); Hemoglobin 11.4 gm/dl (10.1-14.3); Lymphocytes # (Auto) 2.7 K/mm3 (1.2-5.4); Lymphocytes % (Auto) 35.1 % (13.4-35.0); Mean Corpuscular HGB Conc 32 % (30-34); Mean Corpuscular Volume 82 fl (79-97); Monocytes # (Auto) 0.5 K/mm3 (0.0-0.8); Monocytes % (Auto) 6.1 % (0.0-7.3); Platelet Count 302 K/mm3 (140-440); Red Blood Count 4.29 M/mm3 (3.65-5.03); Red Cell Distribution Width 16.8 % (13.2-15.2)
[2021-09-25 23:34] LABS: Alanine Aminotransferase 11 units/L (7-56); Albumin 3.9 g/dL (3.9-5); BUN/Creatinine Ratio 8; Blood Urea Nitrogen 6 mg/dL (7-17); Hemolysis Index 4
[2021-09-26] MEDS ORDERED: METOCLOPRAMIDE 10 MG/2 ML INJ IM STA (05:04)
[2021-09-26] MEDS ORDERED: diphenhydrAMINE 50 MG/ML VIAL IM ONE (05:04)
[2021-09-26 06:01] VITALS: BP 122/88
== END 2021-09-26 06:01 | disposition home or self-care (01) ==
LOC: ED 20:46
DX: R11.2 Nausea with vomiting, unspecified (principal); Z53.21 Procedure and treatment not carried out due to patient leaving prior to being seen by health care provider
CPT/HCPCS: 36415; 80053; 81001; 81025; 82962; 83690; 85025; J1200; J2765

== ENCOUNTER 2021-10-16 22:02 | Emergency (ER) | payer MEDICARE ==
[2021-10-17 00:38] LABS: Basophils % (Auto) 0.4 % (0.0-1.8); Eosinophils # (Auto) 0.1 K/mm3 (0.0-0.4); Eosinophils % (Auto) 0.7 % (0.0-4.3); Hematocrit 36.2 % (30.3-42.9); Hemoglobin 11.9 gm/dl (10.1-14.3); Lymphocytes % (Auto) 20.8 % (13.4-35.0); Mean Corpuscular HGB Conc 33 % (30-34); Mean Corpuscular Volume 81 fl (79-97); Monocytes # (Auto) 0.6 K/mm3 (0.0-0.8); Monocytes % (Auto) 6.6 % (0.0-7.3); Platelet Count 222 K/mm3 (140-440); Red Blood Count 4.49 M/mm3 (3.65-5.03); Red Cell Distribution Width 16.3 % (13.2-15.2)
[2021-10-17 00:46] LABS: Alanine Aminotransferase 12 units/L (7-56); Albumin 3.9 g/dL (3.9-5); BUN/Creatinine Ratio 23; Blood Urea Nitrogen 18 mg/dL (7-17); Calcium 9.3 mg/dL (8.4-10.2); Hemolysis Index 3
[2021-10-17 07:59] VITALS: BP 103/58
[2021-10-17] MEDS ORDERED: MORPHINE 4 MG/1 ML INJ IM ONE (08:04)
[2021-10-17] MEDS ORDERED: PROMETHAZINE 25 MG TAB PO ONE (08:05)
--- NOTE | 2021-10-17 08:26 | Emergency Department Report ---
ED Abdominal Pain HPI - General Chief Complaint: Abdominal Pain Stated Complaint: BACK/SIDE PAIN/NAUSEA Source: patient Mode of arrival: Ambulatory Limitations: No Limitations - History of Present Illness Initial Comments: 41-year-old female presents to the ED complaining dysuria x3 days. Patient states that she has a history of kidney stone. Patient also has a history of hypertension, non-insulin diabetes ,Lupus coronary artery disease, bipolar personality disorder, and paranoid schizophrenia. patient complains of nausea x1 day. Patient is alert and oriented x3. She denies any abdominal pain, chest pain or shortness of breath at present time. Patient denies any vaginal discharge at present time. She denies any fever or chills. Patient is complaining of pain to her right flank area. States that pain is a current 8 out of 10. Patient is requesting morphine and Phenergan for pain. Patient states that she take Percocet daily for chronic pain. Patient is alert and oriented x3. No acute distress noted. No ill appearance noted . Severity scale (0 -10): 9 - Related Data Home Medications Medication Instructions Recorded Confirmed Last Taken lisinopriL [Lisinopril] 20 mg PO DAILY 10/08/17 09/11/19 11/20/17 10:00 Zolpidem (Nf) [Ambien] 10 mg PO QHS 11/26/17 09/11/19 Unknown Detemir (Nf) [Levemir (Nf)] 60 units SUB-Q HS 11/27/17 09/11/19 1 Day Ago ~09/10/19 Previous Rx's Medication Instructions Recorded Last Taken Type Aspirin [Aspirin BABY CHEW TAB] 81 mg PO QDAY #30 tab.chew 06/12/17 11/20/17 10:00 Rx Insulin Detemir [Levemir Flextouch] 40 unit SQ QHS #4 insuln.pen 04/05/19 1 Day Ago Rx ~09/10/19 Clopidogrel [Plavix] 75 mg PO QDAY #30 tablet 07/20/19 1 Day Ago Rx ~09/10/19 Hydroxychloroquine [Plaquenil] 200 mg PO QDAY #20 tablet 07/20/19 Unknown Rx Insulin Glargine [Lantus VIAL] 50 unit SUB-Q QHS #1 vial 10/06/19 Unknown Rx metroNIDAZOLE [Flagyl] 500 mg PO BID 7 Days #14 tab 02/20/20 Unknown Rx Nitrofurantoin Brule/M-Cryst 100 mg PO Q12HR 10 Days #20 capsule 04/01/20 Unknown Rx [Macrobid CAP] Phenazopyridine [Pyridium] 100 mg PO TID #6 tab 04/01/20 Unknown Rx Prednisone [predniSONE 10 mg 10 mg PO .TAPER #1 tab.ds.pk 04/24/20 Unknown Rx (6-Day Pack, 21 Tabs)] cephALEXin [Keflex] 500 mg PO BID 3 Days #6 capsule 05/09/20 Unknown Rx metroNIDAZOLE [Flagyl] 500 mg PO BID 7 Days #14 tab 05/09/20 Unknown Rx Acetaminophen [Tylenol] 650 mg PO Q8HR PRN #20 capsule 05/16/20 Unknown Rx Menthol/Camphor [[place] 1 applicatio TP BID #18 oint...g. 05/16/20 Unknown Rx Ointment] Docusate Sodium [Colace] 100 mg PO BID PRN #20 capsule 05/20/20 Unknown Rx Ondansetron [Zofran Odt] 4 mg PO Q8HR PRN #20 tab.rapdis 05/20/20 Unknown Rx Polyethylene Glycol 3350 [Miralax] 17 gm PO DAILY PRN #7 dose 05/20/20 Unknown Rx Acetaminophen [Acetaminophen TAB] 1,000 mg PO Q6HR PRN #30 tablet 06/11/20 Unknown Rx Dicyclomine [Bentyl] 10 mg PO QID PRN #12 capsule 06/11/20 Unknown Rx Ondansetron [Zofran Odt] 4 mg PO Q8HR PRN #12 tab.rapdis 06/11/20 Unknown Rx Acetaminophen [Acetaminophen TAB] 1,000 mg PO Q6HR PRN #30 tablet 06/18/20 Unknown Rx Clindamycin [Clindamycin CAP] 300 mg PO Q8H 7 Days #21 cap 06/18/20 Unknown Rx Albuterol Mdi (or & Nicu Only) 2 puff IH QID PRN #8.5 gram 07/21/20 Unknown Rx [ProAir HFA Inhaler] levoFLOXacin [Levaquin] 750 mg PO QDAY #5 tablet 07/21/20 Unknown Rx HYDROcodone/APAP 5-325 [[place] 1 each PO Q6HR PRN #7 tablet 07/30/20 Unknown Rx 5/325] Ondansetron [Zofran ODT TAB] 8 mg PO Q8HR #20 tab.rapdis 07/30/20 Unknown Rx methocarbamoL [Methocarbamol] 500 mg PO BID PRN #10 tab 05/26/21 Unknown Rx Acetaminophen/Codeine [Tylenol 1 tab PO Q8H PRN #9 tab 07/29/21 Unknown Rx /Codeine # 3 tab] Fluconazole [Diflucan TAB] 200 mg PO QDAY #2 tablet 09/05/21 Unknown Rx Acetaminophen/Codeine [Tylenol 1 tab PO Q6H PRN 3 Days #12 tab 09/19/21 Unknown Rx /Codeine # 3 tab] Promethazine [Phenergan] 25 mg PO Q6HR PRN 15 Days #30 tab 09/19/21 Unknown Rx Hyoscyamine Subl [Levsin Sl 0.125 0.125 mg SL Q6HR PRN #20 tab 09/26/21 Unknown Rx TAB] Trimethobenzamide (Nf) [Tigan (Nf)] 300 mg PO QID PRN #30 cap 09/26/21 Unknown Rx Promethazine [Phenergan] 25 mg PO Q6HR PRN 15 Days #30 tab 10/17/21 Unknown Rx Sulfamethoxazole/Trimethoprim 1 each PO BID 10 Days #20 tab 10/17/21 Unknown Rx [Bactrim DS TAB] Allergies Allergy/AdvReac Type Severity Reaction Status Date / Time egg Allergy Hives Verified 08/04/20 22:34 piperacillin [From Zosyn] Allergy Hives Verified 08/04/20 22:34 tazobactam [From Zosyn] Allergy Hives Verified 08/04/20 22:34 tramadol HCl [From Ultram] Allergy Hives Verified 08/04/20 22:34 vancomycin Allergy Hives Verified 08/04/20 22:34 NSAIDS (Non-Steroidal AdvReac Vomiting Verified 08/04/20 22:34 Anti-Inflamma ED Review of Systems ROS: Stated complaint: BACK/SIDE PAIN/NAUSEA Other details as noted in HPI Constitutional: denies: chills, fever Eyes: denies: eye pain, eye discharge, vision change ENT: denies: ear pain, throat pain Respiratory: denies: cough, shortness of breath, wheezing Cardiovascular: denies: chest pain, palpitations Endocrine: no symptoms reported Gastrointestinal: denies: abdominal pain, nausea, diarrhea Genitourinary: dysuria. denies: urgency, discharge Musculoskeletal: denies: back pain, joint swelling, arthralgia Skin: denies: rash, lesions Neurological: denies: headache, weakness, paresthesias Psychiatric: denies: anxiety, depression Hematological/Lymphatic: denies: easy bleeding, easy bruising ED Past Medical Hx - Past Medical History Hx Hypertension: Yes Hx CVA: No Hx Heart Attack/AMI: Yes (05/22, cardiac stent x1) Hx Congestive Heart Failure: No Hx Diabetes: Yes (type 2) Hx Deep Vein Thrombosis: No Hx Pulmonary Embolism: No Hx GERD: No Hx Liver Disease: No Hx Renal Disease: No Hx Sickle Cell Disease: No Hx Arthritis: No Hx Headaches / Migraines: No Hx Seizures: No Hx Kidney Stones: No 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 iron deficient anemia - Surgical History Hx Coronary Stent: Yes (x1) Hx Breast Surgery: Yes (breast reduction 05/2004) Additional Surgical History: Breast reduction bilateral,excisional surg. for abscess to breast groin and rectum - Social History Smoking Status: Current Some Day Smoker Substance Use Type: Marijuana - Medications Home Medications: Home Medications Medication Instructions Recorded Confirmed Last Taken Type Aspirin [Aspirin BABY CHEW TAB] 81 mg PO QDAY #30 tab.chew 06/12/17 09/11/19 11/20/17 10:00 Rx lisinopriL [Lisinopril] 20 mg PO DAILY 10/08/17 09/11/19 11/20/17 10:00 History Zolpidem (Nf) [Ambien] 10 mg PO QHS 11/26/17 09/11/19 Unknown History Detemir (Nf) [Levemir (Nf)] 60 units SUB-Q HS 11/27/17 09/11/19 1 Day Ago History ~09/10/19 Insulin Detemir [Levemir Flextouch] 40 unit SQ QHS #4 insuln.pen 04/05/19 09/11/19 1 Day Ago Rx ~09/10/19 Clopidogrel [Plavix] 75 mg PO QDAY #30 tablet 07/20/19 09/11/19 1 Day Ago Rx ~09/10/19 Hydroxychloroquine [Plaquenil] 200 mg PO QDAY #20 tablet 07/20/19 09/11/19 Unknown Rx Insulin Glargine [Lantus VIAL] 50 unit SUB-Q QHS #1 vial 10/06/19 Unknown Rx metroNIDAZOLE [Flagyl] 500 mg PO BID 7 Days #14 tab 02/20/20 Unknown Rx Nitrofurantoin Brule/M-Cryst 100 mg PO Q12HR 10 Days #20 capsule 04/01/20 Unknown Rx [Macrobid CAP] Phenazopyridine [Pyridium] 100 mg PO TID #6 tab 04/01/20 Unknown Rx Prednisone [predniSONE 10 mg 10 mg PO .TAPER #1 tab.ds.pk 04/24/20 Unknown Rx (6-Day Pack, 21 Tabs)] cephALEXin [Keflex] 500 mg PO BID 3 Days #6 capsule 05/09/20 Unknown Rx metroNIDAZOLE [Flagyl] 500 mg PO BID 7 Days #14 tab 05/09/20 Unknown Rx Acetaminophen [Tylenol] 650 mg PO Q8HR PRN #20 capsule 05/16/20 Unknown Rx Menthol/Camphor [[place] 1 applicatio TP BID #18 oint...g. 05/16/20 Unknown Rx Ointment] Docusate Sodium [Colace] 100 mg PO BID PRN #20 capsule 05/20/20 Unknown Rx Ondansetron [Zofran Odt] 4 mg PO Q8HR PRN #20 tab.rapdis 05/20/20 Unknown Rx Polyethylene Glycol 3350 [Miralax] 17 gm PO DAILY PRN #7 dose 05/20/20 Unknown Rx Acetaminophen [Acetaminophen TAB] 1,000 mg PO Q6HR PRN #30 tablet 06/11/20 Unknown Rx Dicyclomine [Bentyl] 10 mg PO QID PRN #12 capsule 06/11/20 Unknown Rx Ondansetron [Zofran Odt] 4 mg PO Q8HR PRN #12 tab.rapdis 06/11/20 Unknown Rx Acetaminophen [Acetaminophen TAB] 1,000 mg PO Q6HR PRN #30 tablet 06/18/20 Unknown Rx Clindamycin [Clindamycin CAP] 300 mg PO Q8H 7 Days #21 cap 06/18/20 Unknown Rx Albuterol Mdi (or & Nicu Only) 2 puff IH QID PRN #8.5 gram 07/21/20 Unknown Rx [ProAir HFA Inhaler] levoFLOXacin [Levaquin] 750 mg PO QDAY #5 tablet 07/21/20 Unknown Rx HYDROcodone/APAP 5-325 [[place] 1 each PO Q6HR PRN #7 tablet 07/30/20 Unknown Rx 5/325] Ondansetron [Zofran ODT TAB] 8 mg PO Q8HR #20 tab.rapdis 07/30/20 Unknown Rx methocarbamoL [Methocarbamol] 500 mg PO BID PRN #10 tab 05/26/21 Unknown Rx Acetaminophen/Codeine [Tylenol 1 tab PO Q8H PRN #9 tab 07/29/21 Unknown Rx /Codeine # 3 tab] Fluconazole [Diflucan TAB] 200 mg PO QDAY #2 tablet 09/05/21 Unknown Rx Acetaminophen/Codeine [Tylenol 1 tab PO Q6H PRN 3 Days #12 tab 09/19/21 Unknown Rx /Codeine # 3 tab] Promethazine [Phenergan] 25 mg PO Q6HR PRN 15 Days #30 tab 09/19/21 Unknown Rx Hyoscyamine Subl [Levsin Sl 0.125 0.125 mg SL Q6HR PRN #20 tab 09/26/21 Unknown Rx TAB] Trimethobenzamide (Nf) [Tigan (Nf)] 300 mg PO QID PRN #30 cap 09/26/21 Unknown Rx Promethazine [Phenergan] 25 mg PO Q6HR PRN 15 Days #30 tab 10/17/21 Unknown Rx Sulfamethoxazole/Trimethoprim 1 each PO BID 10 Days #20 tab 10/17/21 Unknown Rx [Bactrim DS TAB] ED Physical Exam - General Limitations: No Limitations General appearance: alert, in no apparent distress - Head Head exam: Present: atraumatic, normocephalic - Eye Eye exam: Present: normal appearance - ENT ENT exam: Present: mucous membranes moist - Neck Neck exam: Present: normal inspection - Respiratory Respiratory exam: Present: normal lung sounds bilaterally. Absent: respiratory distress - Cardiovascular Cardiovascular Exam: Present: regular rate, normal rhythm. Absent: systolic murmur, diastolic murmur, rubs, gallop - GI/Abdominal GI/Abdominal exam: Present: soft, normal bowel sounds - Extremities Exam Extremities exam: Present: normal inspection - Back Exam Back exam: Present: normal inspection - Neurological Exam Neurological exam: Present: alert, oriented X3 - Psychiatric Psychiatric exam: Present: normal affect, normal mood - Skin Skin exam: Present: warm, dry, intact, normal color. Absent: rash ED Course Vital Signs 10/16/21 10/17/21 22:14 07:56 Temperature 99.1 F 98.0 F Pulse Rate 98 H 67 Respiratory 18 18 Rate Blood Pressure 130/75 Blood Pressure 103/58 [Left] O2 Sat by Pulse 100 100 Oximetry ED Medical Decision Making - Lab Data Result diagrams: 10/17/21 00:11 10/17/21 00:11 - Medical Decision Making 41-year-old female presents to the ED complaining dysuria x3 days. Patient states that she has a history of kidney stone. Patient also has a history of hypertension, non-insulin diabetes ,Lupus coronary artery disease, bipolar personality disorder, and paranoid schizophrenia. patient complains of nausea x1 day. Patient is alert and oriented x3. She denies any abdominal pain, chest pain or shortness of breath at present time. Patient denies any vaginal discharge at present time. She denies any fever or chills. Patient is complaining of pain to her right flank area. States that pain is a current 8 out of 10. Patient is requesting morphine and Phenergan for pain. Patient sta delfino that she take Percocet daily for chronic pain. Patient is alert and oriented x3. No acute distress noted. No ill appearance noted. Rechecked the patient is resting quietly quietly and comfortable and feeling better. I discussed the results of diagnostic study, my clinical impression and the plan for further treatment with the patient. Patient agrees with plan and discharge at this present time. All question addressed. I have given the patient instruction regarding a diagnosis ,expectation ,follow- up and return precaution. I explained to the patient that emergent condition may arise and to return to the ED for new worsen and any new persisting condition. I have explained the importance of following up with the primary care physician or referral physician listed below has instructed. The patient verbalized understanding of discharge instruction. Abnormal Lab Results 10/16/21 10/17/21 10/17/21 09:04 00:11 00:11 WBC 9.5 RBC 4.49 Hgb 11.9 Hct 36.2 MCV 81 MCH 27 L MCHC 33 RDW 16.3 H Plt Count 222 Lymph % (Auto) 20.8 Brule % (Auto) 6.6 Eos % (Auto) 0.7 Baso % (Auto) 0.4 Lymph # (Auto) 2.0 Brule # (Auto) 0.6 Eos # (Auto) 0.1 Baso # (Auto) 0.0 Seg Neutrophils % 71.5 H Seg Neutrophils # 6.8 Sodium 136 L Potassium 4.1 Chloride 103.3 Carbon Dioxide 20 L Anion Gap 17 BUN 18 H Creatinine 0.8 Estimated GFR > 60 BUN/Creatinine Ratio 23 Glucose 179 H Calcium 9.3 Total Bilirubin 0.30 AST 14 ALT 12 Alkaline Phosphatase 81 Total Protein 7.6 Albumin 3.9 Albumin/Globulin Ratio 1.1 HCG, Qual Urine Color Yellow Urine Turbidity Clear Urine pH 6.0 Ur Specific [place] 1.012 Urine Protein <15 mg/dl Urine Glucose (UA) >=500 Urine Ketones Neg Urine Blood Lg Urine Nitrite Neg Urine Bilirubin Neg Urine Urobilinogen < 2.0 Ur Leukocyte Esterase Neg Urine WBC (Auto) 4.0 Urine RBC (Auto) 24.0 U Epithel Cells (Auto) 4.0 Urine Bacteria (Auto) 1+ Urine Mucus Few 10/17/21 00:11 WBC RBC Hgb Hct MCV MCH MCHC RDW Plt Count Lymph % (Auto) Brule % (Auto) Eos % (Auto) Baso % (Auto) Lymph # (Auto) Brule # (Auto) Eos # (Auto) Baso # (Auto) Seg Neutrophils % Seg Neutrophils # Sodium Potassium Chloride Carbon Dioxide Anion Gap BUN Creatinine Estimated GFR BUN/Creatinine Ratio Glucose Calcium Total Bilirubin AST ALT Alkaline Phosphatase Total Protein Albumin Albumin/Globulin Ratio HCG, Qual Negative Urine Color Urine Turbidity Urine pH Ur Specific [place] Urine Protein Urine Glucose (UA) Urine Ketones Urine Blood Urine Nitrite Urine Bilirubin Urine Urobilinogen Ur Leukocyte Esterase Urine WBC (Auto) Urine RBC (Auto) U Epithel Cells (Auto) Urine Bacteria (Auto) Urine Mucus Critical care attestation.: If time is entered above; I have spent that time in minutes in the direct care of this critically ill patient, excluding procedure time. ED Disposition Clinical Impression: Acute urinary tract infection Disposition: HOME / SELF CARE / HOMELESS Is pt being admited?: No Does the pt Need Aspirin: No Condition: Stable Instructions: Abdominal Pain (ED), Urinary Tract Infection, Adult, [id number] Additional Instructions: Take medication as prescribed Return to the ED for any worsening symptom Prescriptions: Sulfamethoxazole/Trimethoprim [Bactrim DS TAB] 1 each PO BID 10 Days #20 tab Promethazine [Phenergan] 25 mg PO Q6HR PRN 15 Days #30 tab PRN Reason: Nausea Referrals: [facility] [Provider Group] - 3-5 Days Forms: Work/School Release Form(ED) Time of Disposition: 09:31
[2021-10-17 09:01] LABS: Bilirubin,Urine NEG (Negative); Blood,Urine LG (Negative); Color,Urine Yellow (Yellow); Protein,Urine <15 mg/dL mg/dL (Negative); Urobilinogen,Urine < 2.0 mg/dL (<2.0)
[2021-10-17 09:07] LABS: Bacteria,Urine 1+ /HPF (Negative); Mucus,Urine FEW /HPF
[2021-10-17 10:39] LABS: Ictotest,Urine Negative (Negative)
== END 2021-10-18 10:12 | disposition home or self-care (01) ==
LOC: ED 22:02
DX: N39.0 Urinary tract infection, site not specified (principal); F17.200 Nicotine dependence, unspecified, uncomplicated; F12.90 Cannabis use, unspecified, uncomplicated; I10 Essential (primary) hypertension; E11.9 Type 2 diabetes mellitus without complications; Z88.6 Allergy status to analgesic agent; Z88.8 Allergy status to other drugs, medicaments and biological substances
CPT/HCPCS: 36415; 80053; 81001; 84703; 85025; 96372; 99283; J2270; Q0169; 99282

== ENCOUNTER 2021-11-11 01:33 | Emergency (ER) | payer MEDICARE ==
[2021-11-11 01:56] VITALS: BP 162/102
[2021-11-11] MEDS ORDERED: HYDROcodone/ACETAMINOPHEN 5-325 MG TAB PO ONE (09:20)
--- NOTE | 2021-11-11 09:21 | Emergency Department Report ---
ED General Adult HPI - General Chief complaint: Extremity Problem,Nontraumatic Stated complaint: LEFT LEG PAIN SWELLING Time Seen by Provider: 11/11/21 08:47 Source: patient Mode of arrival: Ambulatory Limitations: No Limitations - History of Present Illness Initial comments: 41-year-old female past medical history hypertension, diabetes, lupus. Reports to the ER with left lower pain and swelling for 3 to 4 days. Patient reports going to [facility] yesterday reports increase in pain and swelling since yesterday. Patient denies any recent travel. Patient denies any prolonged sitting. Patient reports no history of DVTs in her lower extremities. Patient reports her pain is 9 out of 10. No other acute symptoms reported this time. - Related Data Home Medications Medication Instructions Recorded Confirmed Last Taken lisinopriL [Lisinopril] 20 mg PO DAILY 10/08/17 09/11/19 11/20/17 10:00 Zolpidem (Nf) [Ambien] 10 mg PO QHS 11/26/17 09/11/19 Unknown Detemir (Nf) [Levemir (Nf)] 60 units SUB-Q HS 11/27/17 09/11/19 1 Day Ago ~09/10/19 Previous Rx's Medication Instructions Recorded Last Taken Type Aspirin [Aspirin BABY CHEW TAB] 81 mg PO QDAY #30 tab.chew 06/12/17 11/20/17 10:00 Rx Insulin Detemir [Levemir Flextouch] 40 unit SQ QHS #4 insuln.pen 04/05/19 1 Day Ago Rx ~09/10/19 Clopidogrel [Plavix] 75 mg PO QDAY #30 tablet 07/20/19 1 Day Ago Rx ~09/10/19 Hydroxychloroquine [Plaquenil] 200 mg PO QDAY #20 tablet 07/20/19 Unknown Rx Insulin Glargine [Lantus VIAL] 50 unit SUB-Q QHS #1 vial 10/06/19 Unknown Rx metroNIDAZOLE [Flagyl] 500 mg PO BID 7 Days #14 tab 02/20/20 Unknown Rx Nitrofurantoin [place]/M-Cryst 100 mg PO Q12HR 10 Days #20 capsule 04/01/20 Unknown Rx [Macrobid CAP] Phenazopyridine [Pyridium] 100 mg PO TID #6 tab 04/01/20 Unknown Rx Prednisone [predniSONE 10 mg 10 mg PO .TAPER #1 tab.ds.pk 04/24/20 Unknown Rx (6-Day Pack, 21 Tabs)] cephALEXin [Keflex] 500 mg PO BID 3 Days #6 capsule 05/09/20 Unknown Rx metroNIDAZOLE [Flagyl] 500 mg PO BID 7 Days #14 tab 05/09/20 Unknown Rx Acetaminophen [Tylenol] 650 mg PO Q8HR PRN #20 capsule 05/16/20 Unknown Rx Menthol/Camphor [Bethany Hilger 1 applicatio TP BID #18 oint...g. 05/16/20 Unknown Rx Ointment] Docusate Sodium [Colace] 100 mg PO BID PRN #20 capsule 05/20/20 Unknown Rx Ondansetron [Zofran Odt] 4 mg PO Q8HR PRN #20 tab.rapdis 05/20/20 Unknown Rx Polyethylene Glycol 3350 [Miralax] 17 gm PO DAILY PRN #7 dose 05/20/20 Unknown Rx Acetaminophen [Acetaminophen TAB] 1,000 mg PO Q6HR PRN #30 tablet 06/11/20 Unknown Rx Dicyclomine [Bentyl] 10 mg PO QID PRN #12 capsule 06/11/20 Unknown Rx Ondansetron [Zofran Odt] 4 mg PO Q8HR PRN #12 tab.rapdis 06/11/20 Unknown Rx Acetaminophen [Acetaminophen TAB] 1,000 mg PO Q6HR PRN #30 tablet 06/18/20 Unknown Rx Clindamycin [Clindamycin CAP] 300 mg PO Q8H 7 Days #21 cap 06/18/20 Unknown Rx Albuterol Mdi (or & Nicu Only) 2 puff IH QID PRN #8.5 gram 07/21/20 Unknown Rx [ProAir HFA Inhaler] levoFLOXacin [Levaquin] 750 mg PO QDAY #5 tablet 07/21/20 Unknown Rx HYDROcodone/APAP 5-325 [[place] 1 each PO Q6HR PRN #7 tablet 07/30/20 Unknown Rx 5/325] Ondansetron [Zofran ODT TAB] 8 mg PO Q8HR #20 tab.rapdis 07/30/20 Unknown Rx methocarbamoL [Methocarbamol] 500 mg PO BID PRN #10 tab 05/26/21 Unknown Rx Acetaminophen/Codeine [Tylenol 1 tab PO Q8H PRN #9 tab 07/29/21 Unknown Rx /Codeine # 3 tab] Fluconazole [Diflucan TAB] 200 mg PO QDAY #2 tablet 09/05/21 Unknown Rx Acetaminophen/Codeine [Tylenol 1 tab PO Q6H PRN 3 Days #12 tab 09/19/21 Unknown Rx /Codeine # 3 tab] Promethazine [Phenergan] 25 mg PO Q6HR PRN 15 Days #30 tab 09/19/21 Unknown Rx Hyoscyamine Subl [Levsin Sl 0.125 0.125 mg SL Q6HR PRN #20 tab 09/26/21 Unknown Rx TAB] Trimethobenzamide (Nf) [Tigan (Nf)] 300 mg PO QID PRN #30 cap 09/26/21 Unknown Rx Promethazine [Phenergan] 25 mg PO Q6HR PRN 15 Days #30 tab 10/17/21 Unknown Rx Sulfamethoxazole/Trimethoprim 1 each PO BID 10 Days #20 tab 10/17/21 Unknown Rx [Bactrim DS TAB] Allergies Allergy/AdvReac Type Severity Reaction Status Date / Time egg Allergy Hives Verified 08/04/20 22:34 piperacillin [From Zosyn] Allergy Hives Verified 08/04/20 22:34 tazobactam [From Zosyn] Allergy Hives Verified 08/04/20 22:34 tramadol HCl [From Ultram] Allergy Hives Verified 08/04/20 22:34 vancomycin Allergy Hives Verified 08/04/20 22:34 NSAIDS (Non-Steroidal AdvReac Vomiting Verified 08/04/20 22:34 Anti-Inflamma ED Review of Systems ROS: Stated complaint: LEFT LEG PAIN SWELLING Other details as noted in HPI Comment: All other systems reviewed and negative Musculoskeletal: other (Left lower leg swelling with pain on the posterior side at calf.) ED Past Medical Hx - Past Medical History Previous Medical History?: Yes Hx Hypertension: Yes Hx CVA: No Hx Heart Attack/AMI: Yes (05/22, cardiac stent x1) Hx Congestive Heart Failure: No Hx Diabetes: Yes (type 2) Hx Deep Vein Thrombosis: No Hx Pulmonary Embolism: No Hx GERD: No Hx Liver Disease: No Hx Renal Disease: No Hx Sickle Cell Disease: No Hx Arthritis: No Hx Headaches / Migraines: No Hx Seizures: No Hx Kidney Stones: No 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 iron deficient anemia - Surgical History Hx Coronary Stent: Yes (x1) Hx Breast Surgery: Yes (breast reduction 05/2004) Additional Surgical History: Breast reduction bilateral,excisional surg. for abscess to breast groin and rectum - Social History Smoking Status: Current Some Day Smoker Substance Use Type: Marijuana - Medications Home Medications: Home Medications Medication Instructions Recorded Confirmed Last Taken Type Aspirin [Aspirin BABY CHEW TAB] 81 mg PO QDAY #30 tab.chew 06/12/17 09/11/19 11/20/17 10:00 Rx lisinopriL [Lisinopril] 20 mg PO DAILY 10/08/17 09/11/19 11/20/17 10:00 History Zolpidem (Nf) [Ambien] 10 mg PO QHS 11/26/17 09/11/19 Unknown History Detemir (Nf) [Levemir (Nf)] 60 units SUB-Q HS 11/27/17 09/11/19 1 Day Ago History ~09/10/19 Insulin Detemir [Levemir Flextouch] 40 unit SQ QHS #4 insuln.pen 04/05/19 09/11/19 1 Day Ago Rx ~09/10/19 Clopidogrel [Plavix] 75 mg PO QDAY #30 tablet 07/20/19 09/11/19 1 Day Ago Rx ~09/10/19 Hydroxychloroquine [Plaquenil] 200 mg PO QDAY #20 tablet 07/20/19 09/11/19 Unknown Rx Insulin Glargine [Lantus VIAL] 50 unit SUB-Q QHS #1 vial 10/06/19 Unknown Rx metroNIDAZOLE [Flagyl] 500 mg PO BID 7 Days #14 tab 02/20/20 Unknown Rx Nitrofurantoin [place]/M-Cryst 100 mg PO Q12HR 10 Days #20 capsule 04/01/20 Unknown Rx [Macrobid CAP] Phenazopyridine [Pyridium] 100 mg PO TID #6 tab 04/01/20 Unknown Rx Prednisone [predniSONE 10 mg 10 mg PO .TAPER #1 tab.ds.pk 04/24/20 Unknown Rx (6-Day Pack, 21 Tabs)] cephALEXin [Keflex] 500 mg PO BID 3 Days #6 capsule 05/09/20 Unknown Rx metroNIDAZOLE [Flagyl] 500 mg PO BID 7 Days #14 tab 05/09/20 Unknown Rx Acetaminophen [Tylenol] 650 mg PO Q8HR PRN #20 capsule 05/16/20 Unknown Rx Menthol/Camphor [Bethany Hilger 1 applicatio TP BID #18 oint...g. 05/16/20 Unknown Rx Ointment] Docusate Sodium [Colace] 100 mg PO BID PRN #20 capsule 05/20/20 Unknown Rx Ondansetron [Zofran Odt] 4 mg PO Q8HR PRN #20 tab.rapdis 05/20/20 Unknown Rx Polyethylene Glycol 3350 [Miralax] 17 gm PO DAILY PRN #7 dose 05/20/20 Unknown Rx Acetaminophen [Acetaminophen TAB] 1,000 mg PO Q6HR PRN #30 tablet 06/11/20 Unknown Rx Dicyclomine [Bentyl] 10 mg PO QID PRN #12 capsule 06/11/20 Unknown Rx Ondansetron [Zofran Odt] 4 mg PO Q8HR PRN #12 tab.rapdis 06/11/20 Unknown Rx Acetaminophen [Acetaminophen TAB] 1,000 mg PO Q6HR PRN #30 tablet 06/18/20 Unknown Rx Clindamycin [Clindamycin CAP] 300 mg PO Q8H 7 Days #21 cap 06/18/20 Unknown Rx Albuterol Mdi (or & Nicu Only) 2 puff IH QID PRN #8.5 gram 07/21/20 Unknown Rx [ProAir HFA Inhaler] levoFLOXacin [Levaquin] 750 mg PO QDAY #5 tablet 07/21/20 Unknown Rx HYDROcodone/APAP 5-325 [[place] 1 each PO Q6HR PRN #7 tablet 07/30/20 Unknown Rx 5/325] Ondansetron [Zofran ODT TAB] 8 mg PO Q8HR #20 tab.rapdis 07/30/20 Unknown Rx methocarbamoL [Methocarbamol] 500 mg PO BID PRN #10 tab 05/26/21 Unknown Rx Acetaminophen/Codeine [Tylenol 1 tab PO Q8H PRN #9 tab 07/29/21 Unknown Rx /Codeine # 3 tab] Fluconazole [Diflucan TAB] 200 mg PO QDAY #2 tablet 09/05/21 Unknown Rx Acetaminophen/Codeine [Tylenol 1 tab PO Q6H PRN 3 Days #12 tab 09/19/21 Unknown Rx /Codeine # 3 tab] Promethazine [Phenergan] 25 mg PO Q6HR PRN 15 Days #30 tab 09/19/21 Unknown Rx Hyoscyamine Subl [Levsin Sl 0.125 0.125 mg SL Q6HR PRN #20 tab 09/26/21 Unknown Rx TAB] Trimethobenzamide (Nf) [Tigan (Nf)] 300 mg PO QID PRN #30 cap 09/26/21 Unknown Rx Promethazine [Phenergan] 25 mg PO Q6HR PRN 15 Days #30 tab 10/17/21 Unknown Rx Sulfamethoxazole/Trimethoprim 1 each PO BID 10 Days #20 tab 10/17/21 Unknown Rx [Bactrim DS TAB] ED Physical Exam - General Limitations: No Limitations General appearance: alert, in no apparent distress - Head Head exam: Present: atraumatic, normocephalic - Eye Eye exam: Present: normal appearance - ENT ENT exam: Present: mucous membranes moist - Neck Neck exam: Present: normal inspection - Respiratory Respiratory exam: Present: normal lung sounds bilaterally. Absent: respiratory distress - Cardiovascular Cardiovascular Exam: Present: regular rate, normal rhythm. Absent: systolic murmur, diastolic murmur, rubs, gallop - GI/Abdominal GI/Abdominal exam: Present: soft, normal bowel sounds - Extremities Exam Extremities exam: Present: normal inspection - Expanded Lower Extremity Exam Left Lower Leg exam: Present: full ROM, tenderness, swelling. Absent: deformity, erythema - Back Exam Back exam: Present: normal inspection - Neurological Exam Neurological exam: Present: alert, oriented X3 - Psychiatric Psychiatric exam: Present: normal affect, normal mood - Skin Skin exam: Present: warm, dry, intact, normal color. Absent: rash ED Course Vital Signs 11/11/21 01:34 Temperature 98.3 F Pulse Rate 81 Respiratory 18 Rate Blood Pressure 162/102 [Right] O2 Sat by Pulse 99 Oximetry ED Medical Decision Making - Radiology Data Radiology results: report reviewed [facility] [address] [place] [address] Vascular Lab Report Signed Patient: CARLOS FLORES MR#: [id number] : 1980 Acct:[id number] Age/Sex: 41 / F ADM Date: 11/11/21 Loc: ED Attending Dr: Ordering Physician: OLIVIA YAN NP Date of Service: 11/11/21 Procedure(s): VL venous duplex LE LT Accession Number(s): [id number] cc: OLIVIA YAN NP DUPLEX DOPPLER LOWER EXTREMITY VEINS, LEFT INDICATION / CLINICAL IN FORMATION: pain and swelling. TECHNIQUE: Duplex doppler imaging was performed through the veins of the left lower extremity using venous compression and other maneuvers. COMPARISON: None available. FINDINGS: LEFT COMMON FEMORAL VEIN: Negative. LEFT FEMORAL VEIN: Negative. LEFT POPLITEAL VEIN: Negative. LEFT CALF VEINS: Negative. ADDITIONAL FINDINGS: None. IMPRESSION: 1. No sonographic evidence for DVT in the left lower extremity. Signer Name: Charles Brooks MD Signed: 11/11/2021 10:37 AM Workstation Name: [id number] Transcribed By: Dictated By: CHARLES BROOKS MD Electronically Authenticated By: CHARLES BROOKS MD Signed Date/Time: 11/11/21 1037 - Medical Decision Making 41-year-old female past medical history hypertension, diabetes, lupus. Reports to the ER with left lower pain and swelling for 3 to 4 days. Patient reports going to [facility] yesterday reports increase in pain and swelling since yesterday. Patient denies any recent travel. Patient denies any prolonged sitting. Patient reports no history of DVTs in her lower extremities. Patient reports her pain is 9 out of 10. No other acute symptoms reported this time. Home physical exam left lower leg swelling with tenderness noted. Tenderness on the posterior side of the left calf. Swelling is extended down into the ankle. No swelling is noted on the right lower extremity. Ultrasound of left lower extremity shows no DVT No further imaging is needed at this time. No lab work is needed at this time. Patient reports decrease in pain after receiving oral medications. 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 Patient also informed to set up primary care services with [facility] as she is currently a patient of the [facility]. Patient states that she does not trust primary care providers and that is her reason for coming to the to the ER for primary care services. Patient educated on the usage of the ER as well as the importance of having a primary care provider. Patient verbalizes her understanding and agrees with plan of care. Patient states she will schedule herself to have a primary care visit with a [facility]. . Patient is stable for discharge Vital Signs 11/11/21 01:34 Temperature 98.3 F Pulse Rate 81 Respiratory 18 Rate Blood Pressure 162/102 [Right] O2 Sat by Pulse 99 Oximetry Critical care attestation.: If time is entered above; I have spent that time in minutes in the direct care of this critically ill patient, excluding procedure time. ED Disposition Clinical Impression: Leg pain, left, Left leg swelling Disposition: HOME / SELF CARE / HOMELESS Is pt being admited?: No Condition: Stable Instructions: Leg Cramps Referrals: [facility] [Outside] - 3-5 Days Time of Disposition: 11:26
--- NOTE | 2021-11-11 10:41 | Vascular Lab Report ---
DUPLEX DOPPLER LOWER EXTREMITY VEINS, LEFT INDICATION / CLINICAL INFORMATION: pain and swelling. TECHNIQUE: Duplex doppler imaging was performed through the veins of the left lower extremity using v enous compression and other maneuvers. COMPARISON: None available. FINDINGS: LEFT COMMON FEMORAL VEIN: Negative. LEFT FEMORAL VEIN: Negative. LEFT POPLITEAL VEIN: Negative. LEFT CALF VEINS: Negative. ADDITIONAL FINDINGS: None. IMPRESSION: 1. No sonographic evidence for DVT in the left lower extremity. Signer Name: Charles Brooks MD Signed: 11/11/2021 10:37 AM Workstation Name: [id number]
== END 2021-11-11 11:47 | disposition home or self-care (01) ==
LOC: ED 01:33
DX: M79.605 Pain in left leg (principal); I10 Essential (primary) hypertension; F17.200 Nicotine dependence, unspecified, uncomplicated; E11.9 Type 2 diabetes mellitus without complications; F31.9 Bipolar disorder, unspecified; F12.90 Cannabis use, unspecified, uncomplicated; Z88.6 Allergy status to analgesic agent; Z88.1 Allergy status to other antibiotic agents; Z88.8 Allergy status to other drugs, medicaments and biological substances; Z91.012 Allergy to eggs; Z79.899 Other long term (current) drug therapy
CPT/HCPCS: 99283